=== PATIENT | female | born 1930 | race African-American/Black ===

== ENCOUNTER 2019-12-15 09:28 | Inpatient (IN) | payer OTHER ==
[2019-12-15] VITALS (11 sets, daily range): BP systolic 101–148; BP diastolic 53–99
[~2019-12-15] VITALS: Ht 152.4 cm; Wt 70.8 kg
[2019-12-15] MEDS ORDERED: CALCIUM 500 +1 EAC6 PO (09:40)
[2019-12-15] MEDS ORDERED: DULCOLAX10 MG RC (09:40)
[2019-12-15] MEDS ORDERED: MIRTAZAPINE15 MG ORAL (09:40)
[2019-12-15] MEDS ORDERED: ACETAMINOPHEN325 M1 ORAL (09:40)
[2019-12-15] MEDS ORDERED: COLACE100 MG ORAL (09:40)
[2019-12-15] MEDS ORDERED: RANITIDINE HCL150 MG ORAL (09:40)
[2019-12-15] MEDS ORDERED: MILK OF MA400 MG/51 ORAL (09:40)
[2019-12-15] MEDS ORDERED: VALPROIC A250 MG/5 M PO (09:40)
[2019-12-15] MEDS ORDERED: SENNA8.6 M2 PO (09:40)
[2019-12-15] MEDS ORDERED: ASPIRIN81 MG ORAL (09:40)
[2019-12-15 10:38] LABS: BASOPHILS % (AUTO) 0.5 % (0.0-2.0); HEMATOCRIT 53.8 % (37.0-47.0); LYMPHOCYTES % (AUTO) 14.7 % (20.0-45.0); MEAN CORPUSCULAR VOLUME 93 FL (80-99); MONOCYTES % (AUTO) 4.5 % (1.0-10.0); NEUTROPHILS % (AUTO) 80.2 % (45.0-75.0); PLATELET COUNT 320 K/UL (150-450); RED BLOOD COUNT 5.76 M/UL (4.20-5.40); RED CELL DISTRIBUTION WIDTH 12.5 % (11.6-14.8); WHITE BLOOD COUNT 14.1 K/UL (4.8-10.8)
[2019-12-15 10:39] LABS: HEMOGLOBIN 18.4 G/DL (12.0-16.0)
[2019-12-15 10:50] LABS: APPEARANCE,URINE CLEAR; BILIRUBIN, URINE NEGATIVE (NEGATIVE); GLUCOSE, URINE (UA) NEGATIVE (NEGATIVE); KETONES,URINE NEGATIVE (NEGATIVE); LEUKOCYTE ESTERASE ,URINE NEGATIVE (NEGATIVE); NITRITE,URINE NEGATIVE (NEGATIVE); PH,URINE 6 (4.5-8.0); PROTEIN,URINE 1+ (NEGATIVE); UROBILINOGEN,URINE 1 MG/DL (0.0-1.0)
[2019-12-15 10:53] LABS: INR 1.2 (0.9-1.1)
[2019-12-15 11:00] LABS: ALANINE AMINOTRANSFERASE 52 U/L (12-78); ALBUMIN 3.5 G/DL (3.4-5.0); ALBUMIN/GLOBULIN RATIO 0.6 (1.0-2.7); ALKALINE PHOSPHATASE 209 U/L (46-116); ANION GAP 19 mmol/L (5-15); ASPARTATE AMINO TRANSFERASE 57 U/L (15-37); BILIRUBIN,TOTAL 0.6 MG/DL (0.2-1.0); BLOOD UREA NITROGEN 88 mg/dL (7-18); CALCIUM 10.3 MG/DL (8.5-10.1); CARBON DIOXIDE 26 MMOL/L (21-32); CHLORIDE 119 MMOL/L (98-107); CKMB 6.3 NG/ML (0.0-3.6); CREATINE KINASE 273 U/L (26-308); CREATININE 2.6 MG/DL (0.55-1.30); POTASSIUM 3.7 MMOL/L (3.5-5.1)
[2019-12-15] MEDS ORDERED: LORazepam Inj 2mg/ml 1ml IV ONE (11:00)
[2019-12-15 11:03] LABS: SODIUM 164 MMOL/L (136-145)
[2019-12-15 11:07] LABS: COLOR,URINE YELLOW
[2019-12-15] MEDS ORDERED: Heparin 25,000u/D5W 500ml 500 ML IV SCH ×2 (11:15→21:41)
[2019-12-15] MEDS ORDERED: Heparin 5000 units/ml inj IV ONE (11:15)
--- NOTE | 2019-12-15 11:45 | Diagnostic Imaging Report ---
Indication: Altered mental status Technique: Continuous helical CT scanning of the head was performed utilizing automated exposure control without intravenous contrast material. Axial and coronal reconstructions were obtained. Comparison: 06/03/2013 CT dose: Total DLP 1018.8 mGycm; CTDI vol 53.4 mGy Findings: There is no acute intracranial hemorrhage, mass effect or cortical edema. The ventricles, cisterns and sulci are prominent consistent with atrophy. Periventricular hypoattenuation is seen, a nonspecific finding. There are atherosclerotic vascular calcifications. Visualized mastoid air cells and paranasal sinuses are unremarkable. No focal lesions of the bony calvarium or soft tissues of the scalp are seen. Impression: No evidence of acute intracranial hemorrhage, mass effect or cortical edema. MRI may be obtained for more sensitive evaluation as clinically indicated. Atrophy and nonspecific periventricular hypoattenuation suggestive of chronic ischemic microvascular changes. The CT scanner at [facility] is accredited by the [employer] and the scans are performed using protocols designed to limit radiation exposure to as low as reasonably achievable to attain images of sufficient resolution adequate for diagnostic evaluation.
--- NOTE | 2019-12-15 11:50 | Emergency Room Report ---
History of Present Illness General Chief Complaint: Abnormal Labs Source: EMS Present Illness HPI This patient is brought in from a snf facility. The patient has a history of dementia. She usually is able to make and has not typically agitated. Per report, the patient has been agitated for the past few days and altered. She is no longer speaking any simple words and is nonsensical. This particular snf facility currently has an outbreak of COVID-19. This patient has tested negative for COVID-19. She is in an isolated area of the snf facility and has not been allowed out of her room for concerns of her health. Typically she is brought outside by wheelchair. Over the past 2 days, the patient has been refusing to eat and less active. She does not want to drink water. The patient underwent basic labs at the snf [facility] which showed abnormalities. She presents the emergency department for further evaluation. The patient is completely altered and combative and unable to give any type of history. All of the history of present illness was obtained from the snf facility staff by phone. Allergies: Coded Allergies: MEMANTINE (Unverified Allergy, Unknown, 12/15/19) SERTRALINE (Unverified Allergy, Unknown, 12/15/19) COVID-19 Screening Contact w/high risk pt: Yes Recent Travel to affected area: No Experienced COVID-19 symptoms?: No Patient History Past Medical History: see triage record, old chart reviewed, GERD, dementia, psych hx Social History: Denies: smoking, alcohol use, drug use Reviewed Nursing Documentation: PMH: Agreed; PSxH: Agreed Nursing Documentation-PMH Past Medical History: No History, Except For Hx Cardiac Problems: Yes - [place], Dementia, alzheimers, GERD Hx Hypertension: Yes Review of Systems All Other Systems: limited Physical Exam Vital Signs Date Time Temp Pulse Resp B/P (MAP) Pulse Ox O2 Delivery O2 Flow Rate FiO2 12/15/19 09:30 99.0 89 20 140/99 (113) 97 Room Air Sp02 EP Interpretation: reviewed, normal General Appearance: no apparent distress, alert, GCS 15, non-toxic, other - combatative and agitated Head: normocephalic, atraumatic ENT: hearing grossly normal, no angioedema, normal voice Neck: normal inspection, full range of motion Respiratory: normal breath sounds, no respiratory distress, no retraction, no accessory muscle use Cardiovascular #1: regular rate, rhythm, no edema Gastrointestinal: normal bowel sounds, soft, non-distended, no guarding, no rebound Rectal: deferred Musculoskeletal: normal inspection, back normal, normal range of motion, non- tender Neurologic: alert, motor strength/tone normal, responsive, other - confused, agitated, combatative Psychiatric: anxious Skin: no rash, other - See RN skin exam Medical Decision Making Diagnostic Impression: Primary Impression: Encephalopathy Additional Impressions: Renal failure Dehydration NSTEMI (non-ST elevated myocardial infarction) ER Course This patient has multiple acute issues. This includes acute renal failure with encephalopathy. The labs are consistent with significant dehydration. I suspect this is from poor oral intake given the history of declining food and water. Patient's troponin is significantly elevated to 3.8. She was hydrated aggressively in the emergency department and started on a heparin drip per ACS protocol. CT of the head was unremarkable. The patient is admitted to the ICU stepdown unit. This patient is critically ill. This patient required complex medical decision- making, aggressive intervention, extensive laboratory workup and monitoring. Critical care time: 40 minutes. Laboratory Tests Test 12/15/19 09:50 12/15/19 10:30 White Blood Count 14.1 K/UL (4.8-10.8) H Red Blood Count 5.76 M/UL (4.20-5.40) H Hemoglobin 18.4 G/DL (12.0-16.0) *H Hematocrit 53.8 % (37.0-47.0) H Mean Corpuscular Volume 93 FL (80-99) Mean Corpuscular Hemoglobin 31.9 PG (27.0-31.0) H Mean Corpuscular Hemoglobin Concent 34.2 G/DL (32.0-36.0) Red Cell Distribution Width 12.5 % (11.6-14.8) Platelet Count 320 K/UL (150-450) Mean Platelet Volume 10.2 FL (6.5-10.1) H Neutrophils (%) (Auto) 80.2 % (45.0-75.0) H Lymphocytes (%) (Auto) 14.7 % (20.0-45.0) L Monocytes (%) (Auto) 4.5 % (1.0-10.0) Eosinophils (%) (Auto) 0.0 % (0.0-3.0) Basophils (%) (Auto) 0.5 % (0.0-2.0) Prothrombin Time 13.0 SEC (9.30-11.50) H Prothrombin Time INR 1.2 (0.9-1.1) H Activated Partial Thromboplast Time 31 SEC (23-33) Sodium Level 164 MMOL/L (136-145) *H Potassium Level 3.7 MMOL/L (3.5-5.1) Chloride Level 119 MMOL/L (98-107) H Carbon Dioxide Level 26 MMOL/L (21-32) Anion Gap 19 mmol/L (5-15) H Blood Urea Nitrogen 88 mg/dL (7-18) H Creatinine 2.6 MG/DL (0.55-1.30) H Estimated Glomerular Filtration Rate 21.1 mL/min (>60) Glucose Level 151 MG/DL (74-106) H Lactic Acid Level 3.20 mmol/L (0.4-2.0) H Calcium Level 10.3 MG/DL (8.5-10.1) H Total Bilirubin 0.6 MG/DL (0.2-1.0) Aspartate Amino Transferase (AST) 57 U/L (15-37) H Alanine Aminotransferase (ALT) 52 U/L (12-78) Alkaline Phosphatase 209 U/L (46-116) H Total Creatine Kinase 273 U/L (26-308) Creatine Kinase MB 6.3 NG/ML (0.0-3.6) H Creatine Kinase MB Relative Index 2.3 Troponin I 3.887 ng/mL (0.000-0.056) Total Protein 9.7 G/DL (6.4-8.2) H Albumin 3.5 G/DL (3.4-5.0) Globulin 6.2 g/dL Albumin/Globulin Ratio 0.6 (1.0-2.7) L Urine Color Yellow Urine Appearance Clear Urine pH 6 (4.5-8.0) Urine Specific [place] 1.025 (1.005-1.035) Urine Protein 1+ (NEGATIVE) H Urine Glucose (UA) Negative (NEGATIVE) Urine Ketones Negative (NEGATIVE) Urine Blood 1+ (NEGATIVE) H Urine Nitrite Negative (NEGATIVE) Urine Bilirubin Negative (NEGATIVE) Urine Urobilinogen 1 MG/DL (0.0-1.0) H Urine Leukocyte Esterase Negative (NEGATIVE) Urine RBC 2-4 /HPF (0 - 2) H Urine WBC 0-2 /HPF (0 - 2) Urine Squamous Epithelial Cells Few /LPF (NONE/OCC) Urine Bacteria Few /HPF (NONE) EKG Diagnostic Results Rate: normal Rhythm: NSR ST Segments: other - NSST findings Rhythm Strip Diag. Results EP Interpretation: yes Rate: 80's Rhythm: NSR, no PVC's, no ectopy Chest X-Ray Diagnostic Results Chest X-Ray Diagnostic Results : Chest X-Ray Ordered: Yes # of Views/Limited/Complete: 1 View Indication: Other EP Interpretation: Yes Interpretation: no consolidation, no effusion, no pneumothorax, no acute cardiopulmonary disease Impression: No acute disease Electronically Signed by: Yuki Munoz DO CT/MRI/US Diagnostic Results CT/MRI/US Diagnostic Results : Imaging Test Ordered: CT head Impression No acute findings. Specifically no intracranial bleed, mass effect or edema. See official report. Last Vital Signs Date Time Temp Pulse Resp B/P (MAP) Pulse Ox O2 Delivery O2 Flow Rate FiO2 12/15/19 09:30 99.0 89 20 140/99 (113) 97 Room Air Status: improved Disposition: ADMITTED INPATIENT Condition: Critical Referrals: DANIEL STRICKLAND (PCP) Yuki Munoz DO Dec 15, 2019 11:50
--- NOTE | 2019-12-15 12:29 | Diagnostic Imaging Report ---
Indication: Cough, altered mental status Technique: XRAY Chest 1v Comparison: 06/03/2013 Findings: Heart size within upper limits for normal. Mediastinal contours are sharp. The aorta is tortuous and calcified. There is no focal airspace consolidation, pleural effusion, pneumothorax or radiographic evidence of pulmonary edema. There are degenerative changes of the spine and shoulders. No acute osseous abnormality. Impression: No radiographic evidence of acute cardiopulmonary disease.
--- NOTE | 2019-12-15 13:32 | Consultation ---
Consult Note Consult Note I was asked to evaluate the patient at the request of Dr. Toledo for renal failure Patient seen in the emergency room #10 Records reviewed discussed with RN Emergency room note: This patient is brought in from a long term facility. The patient has a history of dementia. She usually is able to make and has not typically agitated. Per report, the patient has been agitated for the past few days and altered. She is no longer speaking any simple words and is nonsensical. This particular long term facility currently has an outbreak of COVID-19. This patient has tested negative for COVID-19. She is in an isolated area of the long term [facility] and has not been allowed out of her room for concerns of her health. Typically she is brought outside by wheelchair. Over the past 2 days, the patient has been refusing to eat and less active. She does not want to drink water. The patient underwent basic labs at the [facility] which showed abnormalities. She presents the emergency department for further evaluation. The patient is completely altered and combative and unable to give any type of history. All of the history of present illness was obtained from the long term facility staff by phone. Allergies: MEMANTINE (Unverified Allergy, Unknown, 12/15/19) SERTRALINE (Unverified Allergy, Unknown, 12/15/19) Contact w/high risk pt: Yes Recent Travel to affected area: No Experienced COVID-19 symptoms?: No Past Medical History: see triage record, old chart reviewed, GERD, dementia, psych hx Past Medical History: No History, Except For Hx Cardiac Problems: Yes - [place], Dementia, alzheimers, GERD Hx Hypertension: Yes Assessment/Plan Acute renal failure Severe dehydration Hypernatremia indicative of free water depletion Hypercalcemia likely due to dehydration Elevated hemoglobin likely secondary to hemoconcentration Elevated troponin Poor p.o. intake / failure to thrive Dementia Hypertension Exposure to COVID-19 Harris catheter N.p.o. except medication IV Protonix Nitropaste Oral aspirin Avoid nephrotoxic's Monitor renal parameters Monitor hemoglobin hematocrit Avoid mind altering medication in view of severe lethargy Per orders Robert Foreman MD Dec 15, 2019 13:32
[2019-12-15] MEDS: D5 1/2NS 1,000 ML IV SCH (14:38)
[2019-12-15] MEDS: Nitroglycerin Patch 0.4mg TDERMAL SCH (14:57)
--- NOTE | 2019-12-15 20:21 | History & Physical ---
History of Present Illness General Date patient seen: Dec 15, 2019 Reason for Hospitalization: Abnormal Labs Present Illness HPI 89 year old~female~with a history of dementia, HTN, NSTEMI anxiety,~falls transferred to ED from Snf with ROSARIO. Has apparently not been eating for several days. Normally combative and uncooperative at times per report. Noted in ED with labs showing ROSARIO, hypernatremia, polycythemia, and elevated troponin. CT head done which was normal and heparin gtt started. Was COVID negative last week but there are positive cases at her detention. She is being r/o for COVID. Heparin gtt ongoing. IVF started by renal. Allergies: Coded Allergies: MEMANTINE (Unverified Allergy, Unknown, 12/15/19) SERTRALINE (Unverified Allergy, Unknown, 12/15/19) COVID-19 Screening Contact w/high risk pt: Yes Recent Travel to affected area: No Experienced COVID-19 symptoms?: No Medication History Scheduled Aspirin* (Aspirin*), 81 MG ORAL DAILY, (Reported) Docusate Sodium* (Colace*), 100 MG ORAL DAILY, (Reported) Magnesium Hydroxide* (Milk Of Magnesia*), 30 ML ORAL DAILY, (Reported) Mirtazapine* (Remeron*), 15 MG ORAL BEDTIME, (Reported) Ranitidine Hcl* (Zantac*), 150 MG ORAL DAILY, (Reported) Scheduled PRN Acetaminophen* (Acetaminophen 325MG Tablet*), 325 MG ORAL Q4H PRN for For Pain, (Reported) Miscellaneous Medications Bisacodyl (Dulcolax), 10 MG RC, (Reported) Calcium Carbonate/Vitamin D3 (Calcium 500 + Vit D 200 Caplet), 1 EACH PO, ( Reported) Sennosides (Senna), 8.6 MG PO, (Reported) Valproate Sodium (Valproic Acid), 250 MG PO, (Reported) Patient History Limited by: medical condition History Provided By: Medical Record Healthcare decision maker Resuscitation status Advanced Directive on File Review of Systems Review of Symptoms Unable to obtain due to patient factors Physical Exam Physical Exam General appearance: alert, no distress, appears stated age Head: Normocephalic, without obvious abnormality, atraumatic Eyes: conjunctivae/corneas clear. PERRL, EOM's intact. Fundi benign Throat: Lips, mucosa, and tongue normal. Neck: supple, symmetrical, trachea midline, no adenopathy, thyroid: not enlarged, symmetric, no tenderness/mass/nodules, no carotid bruit and no JVD Lungs: clear to auscultation bilaterally Heart: regular rate and rhythm, S1, S2 normal, no murmur, click, rub or gallop Abdomen: soft, non-tender. Bowel sounds normal. No masses, no organomegaly Extremities: extremities normal, atraumatic, no cyanosis or edema Pulses: 2+ and symmetric Skin: Skin color, texture, turgor normal. No rashes or lesions Neurologic: Grossly normal Last 24 Hour Vital Signs Date Time Temp Pulse Resp B/P (MAP) Pulse Ox O2 Delivery O2 Flow Rate FiO2 12/15/19 19:22 79 24 127/97 97 Room Air 12/15/19 18:30 86 17 148/74 97 Room Air 12/15/19 16:26 98.8 78 19 139/94 98 Room Air 12/15/19 14:57 119/76 12/15/19 14:26 18 138/81 100 Room Air 12/15/19 13:30 98.6 81 18 134/86 97 Room Air 12/15/19 11:30 17 138/74 99 Room Air 12/15/19 09:30 99.0 74 20 140/99 97 Room Air 12/15/19 09:30 99.0 89 20 140/99 (113) 97 Room Air Laboratory Tests Test 12/15/19 09:50 12/15/19 10:30 12/15/19 12:15 White Blood Count 14.1 K/UL (4.8-10.8) H Red Blood Count 5.76 M/UL (4.20-5.40) H Hemoglobin 18.4 G/DL (12.0-16.0) *H Hematocrit 53.8 % (37.0-47.0) H Mean Corpuscular Volume 93 FL (80-99) Mean Corpuscular Hemoglobin 31.9 PG (27.0-31.0) H Mean Corpuscular Hemoglobin Concent 34.2 G/DL (32.0-36.0) Red Cell Distribution Width 12.5 % (11.6-14.8) Platelet Count 320 K/UL (150-450) Mean Platelet Volume 10.2 FL (6.5-10.1) H Neutrophils (%) (Auto) 80.2 % (45.0-75.0) H Lymphocytes (%) (Auto) 14.7 % (20.0-45.0) L Monocytes (%) (Auto) 4.5 % (1.0-10.0) Eosinophils (%) (Auto) 0.0 % (0.0-3.0) Basophils (%) (Auto) 0.5 % (0.0-2.0) Prothrombin Time 13.0 SEC (9.30-11.50) H Prothromb Time International Ratio 1.2 (0.9-1.1) H Activated Partial Thromboplast Time 31 SEC (23-33) Sodium Level 164 MMOL/L (136-145) *H Potassium Level 3.7 MMOL/L (3.5-5.1) Chloride Level 119 MMOL/L (98-107) H Carbon Dioxide Level 26 MMOL/L (21-32) Anion Gap 19 mmol/L (5-15) H Blood Urea Nitrogen 88 mg/dL (7-18) H Creatinine 2.6 MG/DL (0.55-1.30) H Estimat Glomerular Filtration Rate 21.1 mL/min (>60) Glucose Level 151 MG/DL (74-106) H Lactic Acid Level 3.20 mmol/L (0.4-2.0) H 2.40 mmol/L (0.66-2.22) H Calcium Level 10.3 MG/DL (8.5-10.1) H Total Bilirubin 0.6 MG/DL (0.2-1.0) Aspartate Amino Transf (AST/SGOT) 57 U/L (15-37) H Alanine Aminotransferase (ALT/SGPT) 52 U/L (12-78) Alkaline Phosphatase 209 U/L (46-116) H Total Creatine Kinase 273 U/L (26-308) Creatine Kinase MB 6.3 NG/ML (0.0-3.6) H Creatine Kinase MB Relative Index 2.3 Troponin I 3.887 ng/mL (0.000-0.056) Total Protein 9.7 G/DL (6.4-8.2) H Albumin 3.5 G/DL (3.4-5.0) Globulin 6.2 g/dL Albumin/Globulin Ratio 0.6 (1.0-2.7) L Urine Color Yellow Urine Appearance Clear Urine pH 6 (4.5-8.0) Urine Specific [place] 1.025 (1.005-1.035) Urine Protein 1+ (NEGATIVE) H Urine Glucose (UA) Negative (NEGATIVE) Urine Ketones Negative (NEGATIVE) Urine Blood 1+ (NEGATIVE) H Urine Nitrite Negative (NEGATIVE) Urine Bilirubin Negative (NEGATIVE) Urine Urobilinogen 1 MG/DL (0.0-1.0) H Urine Leukocyte Esterase Negative (NEGATIVE) Urine RBC 2-4 /HPF (0 - 2) H Urine WBC 0-2 /HPF (0 - 2) Urine Squamous Epithelial Cells Few /LPF (NONE/OCC) Urine Bacteria Few /HPF (NONE) Height (Feet): 5 Weight (Pounds): 160 Medications Current Medications Medications (Trade) Dose Ordered Sig/Ovi Route PRN Reason Start Time Stop Time Status Last Admin Dose Admin Dextrose/Sodium Chloride 1,000 ml @ 75 mls/hr [id number] IV 12/15/19 13:30 01/14/20 13:29 12/15/19 14:38 Heparin Sodium/ Dextrose 500 ml @ 17.418 mls/ hr ADJUST PER PROTOCOL IV 12/15/19 11:15 01/14/20 11:14 12/15/19 12:09 Nitroglycerin (Ntg) 1 patch Q24H TDERMAL 12/15/19 14:00 01/14/20 13:59 12/15/19 14:57 Pantoprazole (Protonix) 40 mg Q12HR IVP 12/15/19 21:00 01/14/20 20:59 Assessment/Plan Assessment/Plan: Problem List: Acute renal failure Severe dehydration Hypernatremia indicative of free water depletion Hypercalcemia likely due to dehydration Elevated hemoglobin likely secondary to hemoconcentration Elevated troponin Poor p.o. intake / failure to thrive Dementia Hypertension Exposure to COVID-19 Generalized anxiety disorder Plan: * IVF per renal * Monitor electrolytes * heparin gtt, trend troponin, cardiology consult * COVID r/o given [facility] patient with cases at [facility] * Monitor hemoglobin * NPO, swallow eval * Cont depakote 500 mg bid from SNF once depakote level is back * DVT ppx: heparin gtt for now * Full Code per prior documented ECP notes MIPS Hospital declaration INPATIENT level of care is warranted for this patient because patient is a 89 year old with who presents with suspicion of . I have a high level of concern because . Patient is at high risk for . Plan of care/treatment include . Patient care is expected to be greater than 2 midnights. OBSERVATION level of care is warranted for this patient. Patient is a 89 year old with who presents with . Patient will be admitted for 1 midnight, but if additional night(s) is/are necessary, patient will be converted to inpatient status for the entire hospitalization Disposition: Once the patient is stable to leave the hospital, I anticipate the patient will likely be discharged to the following environment: Estimated discharge date: I spent 70 minutes on this patient's case, and minutes was dedicated to counseling and/or care coordination. MIPS ([employer]-based Incentive Payment System) Applicable CPT: 08705, 83349 CHECK ALL THAT ARE MET: Measure #5 (CHF): All ages. Prescribe DUKE/ARB upon discharge for patients with left ventricular systolic dysfunction. If not, the reason is clearly documented in the medical chart. Measure #8 (CHF): All ages. Prescribe a beta kelton upon discharge for patients with left ventricular systolic dysfunction. If not, the reason is clearly documented in the medical chart. Measure #47 Advance care plan or surrogate decision maker documented in the medical record. Measure #130 The provider has documented, updated, or reviewed the patients current medication list and has documented it in the patients note. Measure #374 (All): Send report to referring provider. Measure #407(Sepsis due to MSSA bacteremia): Age 18+ Patient treated with a beta-lactam antibiotic (Nafcillin, Oxacillin or Cefazolin) as definitive therapy. MEDICAL COMPLEXITY High complexity medical decision making (need 2/3 categories) Problem - need 4 points Acute/new problem with new plan for workup (4 points, 1 max) Acute/new problem without additional workup (3 points, 1 max) Unstable chronic problem actively being managed (2 point each, 2 max) Stable chronic problem actively being managed (1 point each, 2 max) Self-limited/transient process (constipation, muscle ache, etc) (1 point each , 2 max) Data - need 4 points Reviewed labs/imaging studies (1 points, 2 max) Independent review of imaging (EKG, xrays, etc) (2 points, 2 max) Discussed case with consult/other MD/RN (2 points, 2 max) High Risk - qualify if have one of the following: Severe exacerbation of acute problem, acute mental status change, IV narcotics , monitoring drug levels (vancomycin, INR, tacrolimus etc) Rob Robison MD Dec 15, 2019 20:21
[2019-12-15] MEDS: LORazepam Inj 2mg/ml 1ml IV PRN (22:23)
[2019-12-15] MEDS: Pantoprazole Inj IVP SCH (22:23)
--- NOTE | 2019-12-15 23:16 | Cardiology Progress Note ---
Assessment/Plan Assessment/Plan [id number] full noted dicated i suspect demand ischemia in the setting of arf no st t wave abn has been starte don heparin will consider dc in the next 24 hour will repat trop adn ekg echo will be perfomered once covid status is confirmed not a candidate for aggressive cardiac care Objective Last 24 Hour Vital Signs Date Time Temp Pulse Resp B/P (MAP) Pulse Ox O2 Delivery O2 Flow Rate FiO2 12/15/19 20:30 98.8 79 24 127/97 97 Room Air 12/15/19 19:22 79 24 127/97 97 Room Air 12/15/19 18:30 86 17 148/74 97 Room Air 12/15/19 16:26 98.8 78 19 139/94 98 Room Air 12/15/19 14:57 119/76 12/15/19 14:26 18 138/81 100 Room Air 12/15/19 13:30 98.6 81 18 134/86 97 Room Air 12/15/19 11:30 17 138/74 99 Room Air 12/15/19 09:30 99.0 74 20 140/99 97 Room Air 12/15/19 09:30 99.0 89 20 140/99 (113) 97 Room Air Laboratory Tests Test 12/15/19 09:50 12/15/19 10:30 12/15/19 12:15 White Blood Count 14.1 K/UL (4.8-10.8) H Red Blood Count 5.76 M/UL (4.20-5.40) H Hemoglobin 18.4 G/DL (12.0-16.0) *H Hematocrit 53.8 % (37.0-47.0) H Mean Corpuscular Volume 93 FL (80-99) Mean Corpuscular Hemoglobin 31.9 PG (27.0-31.0) H Mean Corpuscular Hemoglobin Concent 34.2 G/DL (32.0-36.0) Red Cell Distribution Width 12.5 % (11.6-14.8) Platelet Count 320 K/UL (150-450) Mean Platelet Volume 10.2 FL (6.5-10.1) H Neutrophils (%) (Auto) 80.2 % (45.0-75.0) H Lymphocytes (%) (Auto) 14.7 % (20.0-45.0) L Monocytes (%) (Auto) 4.5 % (1.0-10.0) Eosinophils (%) (Auto) 0.0 % (0.0-3.0) Basophils (%) (Auto) 0.5 % (0.0-2.0) Prothrombin Time 13.0 SEC (9.30-11.50) H Prothromb Time International Ratio 1.2 (0.9-1.1) H Activated Partial Thromboplast Time 31 SEC (23-33) Sodium Level 164 MMOL/L (136-145) *H Potassium Level 3.7 MMOL/L (3.5-5.1) Chloride Level 119 MMOL/L (98-107) H Carbon Dioxide Level 26 MMOL/L (21-32) Anion Gap 19 mmol/L (5-15) H Blood Urea Nitrogen 88 mg/dL (7-18) H Creatinine 2.6 MG/DL (0.55-1.30) H Estimat Glomerular Filtration Rate 21.1 mL/min (>60) Glucose Level 151 MG/DL (74-106) H Lactic Acid Level 3.20 mmol/L (0.4-2.0) H 2.40 mmol/L (0.66-2.22) H Calcium Level 10.3 MG/DL (8.5-10.1) H Total Bilirubin 0.6 MG/DL (0.2-1.0) Aspartate Amino Transf (AST/SGOT) 57 U/L (15-37) H Alanine Aminotransferase (ALT/SGPT) 52 U/L (12-78) Alkaline Phosphatase 209 U/L (46-116) H Total Creatine Kinase 273 U/L (26-308) Creatine Kinase MB 6.3 NG/ML (0.0-3.6) H Creatine Kinase MB Relative Index 2.3 Troponin I 3.887 ng/mL (0.000-0.056) Total Protein 9.7 G/DL (6.4-8.2) H Albumin 3.5 G/DL (3.4-5.0) Globulin 6.2 g/dL Albumin/Globulin Ratio 0.6 (1.0-2.7) L Urine Color Yellow Urine Appearance Clear Urine pH 6 (4.5-8.0) Urine Specific [place] 1.025 (1.005-1.035) Urine Protein 1+ (NEGATIVE) H Urine Glucose (UA) Negative (NEGATIVE) Urine Ketones Negative (NEGATIVE) Urine Blood 1+ (NEGATIVE) H Urine Nitrite Negative (NEGATIVE) Urine Bilirubin Negative (NEGATIVE) Urine Urobilinogen 1 MG/DL (0.0-1.0) H Urine Leukocyte Esterase Negative (NEGATIVE) Urine RBC 2-4 /HPF (0 - 2) H Urine WBC 0-2 /HPF (0 - 2) Urine Squamous Epithelial Cells Few /LPF (NONE/OCC) Urine Bacteria Few /HPF (NONE) Kendell Rosen MD Dec 15, 2019 23:16
[2019-12-16] VITALS (24 sets, daily range): BP systolic 108–147; BP diastolic 55–110
[2019-12-16] MEDS ORDERED: Heparin 25,000u/D5W 500ml 500 ML IV SCH (02:00)
[2019-12-16] MEDS: LORazepam Inj 2mg/ml 1ml IV PRN ×2 (02:09→08:16)
[2019-12-16] MEDS: D5 1/2NS 1,000 ML IV SCH (02:10)
--- NOTE | 2019-12-16 03:29 | Consultation ---
DATE OF CONSULTATION: 12/15/2019 CARDIOLOGY CONSULTATION CONSULTING PHYSICIAN: Kendell Rosen M.D. REFERRING PHYSICIAN: Boby Toledo M.D. REASON FOR REFERRAL: Abnormal cardiac enzymes. HISTORY OF PRESENT ILLNESS: This is an 89-year-old female with history of multiple medical problems that apparently is a resident of a facility and according to the records was noted recently to have been spitting food out and not eating or drinking much and being combative. Creatinine went up to approximately 2.1 with a BUN of 80 and with sodium level of 157. The patient reportedly had a fall as I understand was transferred to the emergency room at [facility]. On 12/08/2019, the patient had a COVID negative test; however, the patient's facility apparently had several COVID positive patients. The patient is now on COVID isolation at the time of evaluation in the emergency room. Therefore, information from the patient evaluation is limited. CT was performed apparently normal. The patient was started on anticoagulation with heparin for the abnormal cardiac enzymes. PAST MEDICAL HISTORY: According to the [facility] records, most recently has a history of constipation, depression, some type of heart disease, hypertension, migraines, phobic disorder, and ulnar fracture. She is status post cholecystectomy, hysterectomy. Also positive for fall back in August 2019, presyncope from bradycardia, history of chronic weakness, history of possible benign positional vertigo, [id number] myocardial infarction type 2, bradycardia secondary to beta-blockers that resolved after discontinuation of the medication, urinary tract infection, hypertension, dementia, anxiety disorder, gastroesophageal reflux disease, osteopenia, degenerative joint disease, vitamin D deficiency. ALLERGIES: To Namenda and Zoloft. SOCIAL HISTORY: Resident of convalescent facility. REVIEW OF SYSTEMS: Really unable to obtain. PHYSICAL EXAMINATION: It is obtained from review of other physicians who saw patient today. GENERAL: Apparently, she was alert and was not appeared to be any distress. NECK: Supple. Trachea was felt to be midline. LUNGS: [place] to be clear to auscultation by . HEART: Sounds apparently felt to be regular. ABDOMEN: Otherwise soft and nontender. EXTREMITIES: She did not have any significant edema. VITAL SIGNS: Today, blood pressures have ranged anywhere between 119/76 to 148/74 with her temperature being documented here orally as basically between 98.8 and 99 degrees. Her heart rate has been as low as 74 and as high as 89 beats per minute. LABORATORY AND DIAGNOSTIC DATA: Her electrocardiogram shows sinus rhythm. There was no ST or T-wave abnormalities. White count of 14.1 with hemoglobin 18.4, and platelet count of 320. Sodium is 164, potassium 3.7, chloride 119, bicarb 26, BUN of 88, creatinine 2.6, and a glucose of 151. Lactic acid of 3.273, 2.4. Calcium of 10.3. AST and ALT are unremarkable. Alkaline phosphatase is 209. Total CK of 273. Troponin of 3.88. Her total protein is 9.7 with a gamma globulin of 6.2. Further imaging that was performed today, CT scan of the head has no evidence of acute intracranial hemorrhage, mass effect or cortical edema, atrophy, nonspecific periventricular hypoattenuation suggestive of chronic ischemic microvascular changes. A chest x-ray performed shows no acute evidence of cardiopulmonary disease process. ASSESSMENT AND PLAN: 1. Efz-SX-[id number] myocardial infarction, possibly related to demand. 2. Acute renal failure in the setting of volume depletion. 3. Hypernatremia secondary to volume depletion. 4. 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 5. Dementia. 6. Lactic acidosis. 7. History of bradycardia secondary to medications. Dr. Toledo, this patient was seen in cardiac consultation. Patient does not endorse any signs or symptoms of coronary syndrome, although appears that she is unable to provide that information because this patient had sensation at this time. Her prior to admission medications were reviewed and she will be continued on aspirin for the time being and she is receiving hydration. Her EKG will be repeated. Cardiac enzymes will be repeated. Echocardiogram will be held off until results of COVID-19 tests are available. She certainly is not a candidate for any kind of invasive cardiac evaluation and therapy. We would continue conservative therapy and further recommendation depending on the results of the above findings. I am not sure she will require to be continued on heparin. We will decide that after the first 24 hours since she has already been started on that therapy at this time. She is not febrile. Her altered mentation that resulted in her decreased p.o. intake will be evaluated based on her recommendations of and Dr. Toledo who have seen the patient originally. I will follow the patient along with you. Kendell Rosen M.D. DR: RACHEL JOB#: [id number] CC:
[2019-12-16] MEDS: Pantoprazole Inj IVP SCH ×2 (08:15→20:41)
--- NOTE | 2019-12-16 08:22 | Nephrology Progress Note ---
Assessment/Plan Problem List: (1) ROSARIO (acute kidney injury) (2) Dehydration (3) Electrolyte imbalance (4) NSTEMI (non-ST elevated myocardial infarction) Assessment Acute renal failure Severe dehydration Hypernatremia indicative of free water depletion Hypercalcemia likely due to dehydration Elevated hemoglobin likely secondary to hemoconcentration Elevated troponin Poor p.o. intake / failure to thrive Dementia Hypertension Exposure to COVID-19 Plan Covid19 test pending Today's lab results reviewed IV fluid adjusted Aspirin and Plavix 2D echocardiogram Patient in ICU now discussed with RN Harris catheter N.p.o. except medication IV Protonix Nitropaste Avoid nephrotoxic's Monitor renal parameters Monitor hemoglobin hematocrit Avoid mind altering medication in view of severe lethargy Per orders Subjective ROS Limited/Unobtainable: No Constitutional: Reports: malaise, weakness Objective Objective Last 24 Hour Vital Signs Date Time Temp Pulse Resp B/P (MAP) Pulse Ox O2 Delivery O2 Flow Rate FiO2 12/16/19 07:00 75 17 120/94 (103) 100 12/16/19 06:30 77 20 12/16/19 06:00 76 18 138/83 (101) 100 12/16/19 05:00 75 19 127/76 (93) 100 12/16/19 04:00 77 12/16/19 04:00 Nasal Cannula 2.0 12/16/19 04:00 97.6 77 18 137/73 (94) 100 12/16/19 04:00 2.0 12/16/19 03:00 78 19 123/84 (97) 100 12/16/19 02:00 79 17 129/65 (86) 100 12/16/19 01:00 83 22 119/103 (108) 95 12/16/19 00:20 97.6 12/16/19 00:00 81 12/16/19 00:00 2.0 12/16/19 00:00 87 23 125/110 (115) 95 12/16/19 00:00 Nasal Cannula 2.0 12/15/19 23:00 80 17 105/74 (84) 96 12/15/19 22:00 84 21 127/74 (91) 93 12/15/19 21:00 84 19 101/53 (69) 92 12/15/19 21:00 Room Air 12/15/19 20:43 97.9 85 17 135/70 (91) 85 12/15/19 20:40 87 33 12/15/19 20:30 98.8 79 24 127/97 97 Room Air 12/15/19 19:22 79 24 127/97 97 Room Air 12/15/19 18:30 86 17 148/74 97 Room Air 12/15/19 16:26 98.8 78 19 139/94 98 Room Air 12/15/19 14:57 119/76 12/15/19 14:26 18 138/81 100 Room Air 12/15/19 13:30 98.6 81 18 134/86 97 Room Air 12/15/19 11:30 17 138/74 99 Room Air 12/15/19 09:30 99.0 74 20 140/99 97 Room Air 12/15/19 09:30 99.0 89 20 140/99 (113) 97 Room Air Intake and Output 12/15/19 12/16/19 19:00 07:00 Intake Total 75 ml 829.672 ml Output Total 910 ml Balance 75 ml -80.328 ml Intake IV Total 75 ml 829.672 ml Output Urine Total 910 ml Laboratory Tests 12/15/19 09:50: White Blood Count 14.1H, Red Blood Count 5.76H, Hemoglobin 18.4*H, Hematocrit 53.8H, Mean Corpuscular Volume 93, Mean Corpuscular Hemoglobin 31.9H, Mean Corpuscular Hemoglobin Concent 34.2, Red Cell Distribution Width 12.5, Platelet Count 320, Mean Platelet Volume 10.2H, Neutrophils (%) (Auto) 80.2H, Lymphocytes (%) (Auto) 14.7L, Monocytes (%) (Auto) 4.5, Eosinophils (%) (Auto) 0.0, Basophils (%) (Auto) 0.5, Prothrombin Time 13.0H, Prothromb Time International Ratio 1.2H, Activated Partial Thromboplast Time 31, Sodium Level 164*H, Potassium Level 3.7, Chloride Level 119H, Carbon Dioxide Level 26, Anion Gap 19H, Blood Urea Nitrogen 88H, Creatinine 2.6H, Estimat Glomerular Filtration Rate 21.1, Glucose Level 151H, Lactic Acid Level 3.20H, Calcium Level 10.3H, Total Bilirubin 0.6, Aspartate Amino Transf (AST/SGOT) 57H, Alanine Aminotransferase (ALT/SGPT) 52, Alkaline Phosphatase 209H, Total Creatine Kinase 273, Creatine Kinase MB 6.3H, Creatine Kinase MB Relative Index 2.3, Troponin I 3.887H, Total Protein 9.7H, Albumin 3.5, Globulin 6.2, Albumin/ Globulin Ratio 0.6L 12/15/19 10:30: Urine Color Yellow, Urine Appearance Clear, Urine pH 6, Urine Specific [place] 1.025, Urine Protein 1+H, Urine Glucose (UA) Negative, Urine Ketones Negative, Urine Blood 1+H, Urine Nitrite Negative, Urine Bilirubin Negative, Urine Urobilinogen 1H, Urine Leukocyte Esterase Negative, Urine RBC 2-4H, Urine WBC 0- 2, Urine Squamous Epithelial Cells Few, Urine Bacteria Few 12/15/19 12:15: Lactic Acid Level 2.40H 12/16/19 00:05: Activated Partial Thromboplast Time > 150*H Height (Feet): 5 Height (Inches): 0.00 Weight (Pounds): 117 General Appearance: no apparent distress Cardiovascular: normal rate Respiratory/Chest: decreased breath sounds Abdomen: soft Robert Foreman MD Dec 16, 2019 08:22
[2019-12-16 10:15] LABS: ALANINE AMINOTRANSFERASE 35 U/L (12-78); ALBUMIN 2.6 G/DL (3.4-5.0); ALBUMIN/GLOBULIN RATIO 0.5 (1.0-2.7); ALKALINE PHOSPHATASE 150 U/L (46-116); ANION GAP 14 mmol/L (5-15); ASPARTATE AMINO TRANSFERASE 50 U/L (15-37); BILIRUBIN,TOTAL 0.4 MG/DL (0.2-1.0); BLOOD UREA NITROGEN 57 mg/dL (7-18); CALCIUM 8.8 MG/DL (8.5-10.1); CARBON DIOXIDE 24 MMOL/L (21-32); CHLORIDE 123 MMOL/L (98-107); CREATININE 1.4 MG/DL (0.55-1.30); FERRITIN 668 NG/ML (8-388); GAMMA GLUTAMYL TRANSPEPTIDASE 49 U/L (5-85); PHOSPHORUS 2.8 MG/DL (2.5-4.9); POTASSIUM 2.9 MMOL/L (3.5-5.1)
[2019-12-16 10:17] LABS: SODIUM 161 MMOL/L (136-145)
[2019-12-16 10:18] LABS: BASOPHILS % (AUTO) 0.9 % (0.0-2.0); EOSINOPHILS % (AUTO) 0.2 % (0.0-3.0); HEMATOCRIT 39.9 % (37.0-47.0); HEMOGLOBIN 14.1 G/DL (12.0-16.0); LYMPHOCYTES % (AUTO) 15.3 % (20.0-45.0); MEAN CORPUSCULAR VOLUME 92 FL (80-99); MONOCYTES % (AUTO) 7.1 % (1.0-10.0); NEUTROPHILS % (AUTO) 76.6 % (45.0-75.0); PLATELET COUNT 223 K/UL (150-450); RED BLOOD COUNT 4.31 M/UL (4.20-5.40); RED CELL DISTRIBUTION WIDTH 12.3 % (11.6-14.8); WHITE BLOOD COUNT 10.9 K/UL (4.8-10.8)
[2019-12-16] MEDS ORDERED: Heparin 5000 units/ml inj IV SCH (10:29)
[2019-12-16] MEDS: Heparin 25,000u/D5W 500ml 500 ML IV SCH ×2 (10:43→20:43)
[2019-12-16 11:04] LABS: % IRON SATURATION 45 % (15-50); IRON 83 ug/dL (50-175); TOTAL IRON BINDING CAPACITY 186 ug/dL (250-450)
[2019-12-16 13:19] LABS: CHOLESTEROL 145 MG/DL (< 200); HDL CHOLESTEROL 43 MG/DL (40-60); TRIGLYCERIDES 153 MG/DL (30-150)
[2019-12-16] MEDS: Nitroglycerin Patch 0.4mg TDERMAL SCH (14:54)
--- NOTE | 2019-12-16 17:33 | Cardiology Progress Note ---
Assessment/Plan Assessment/Plan 1. [id number] myocardial infarction, possibly related to demand. 2. Acute renal failure in the setting of volume depletion. 3. Hypernatremia secondary to volume depletion. 4. 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 5. Dementia. 6. Lactic acidosis. 7. History of bradycardia secondary to medications. pt not examined due to covid unknown status trop appears flat ekg no st t wave abn lactic acid level are still elevated not needed pressor nad min improved covid status still pending not seem be coughing per rn is n heparin will dc tomorow if trop trene down reepat ekg echo onse covid neg Subjective ROS Limited/Unobtainable: Yes Subjective per rn no cough no fever in fact hypothermic no vomit confused no diarrhea Objective Last 24 Hour Vital Signs Date Time Temp Pulse Resp B/P (MAP) Pulse Ox O2 Delivery O2 Flow Rate FiO2 12/16/19 17:00 77 17 144/77 (99) 100 12/16/19 16:00 98.6 73 17 147/65 (92) 100 12/16/19 16:00 Nasal Cannula 2.0 12/16/19 16:00 2.0 12/16/19 15:20 71 12/16/19 15:00 74 15 126/78 (94) 100 12/16/19 14:54 131/67 12/16/19 14:00 73 17 131/67 (88) 12/16/19 13:00 94.0 71 21 143/85 (104) 100 12/16/19 12:00 69 14 142/80 (100) 100 12/16/19 12:00 69 12/16/19 12:00 2.0 12/16/19 12:00 94.0 69 14 142/80 (100) 100 12/16/19 12:00 Nasal Cannula 2.0 12/16/19 11:00 71 14 121/91 (101) 100 12/16/19 10:00 62 13 126/64 (84) 100 12/16/19 09:00 63 14 108/55 (72) 100 12/16/19 08:00 Nasal Cannula 2.0 12/16/19 08:00 97.6 74 18 128/87 (101) 100 12/16/19 08:00 2.0 12/16/19 07:40 71 12/16/19 07:00 75 17 120/94 (103) 100 12/16/19 06:30 77 20 12/16/19 06:00 76 18 138/83 (101) 100 12/16/19 05:00 75 19 127/76 (93) 100 12/16/19 04:00 77 12/16/19 04:00 Nasal Cannula 2.0 12/16/19 04:00 97.6 77 18 137/73 (94) 100 12/16/19 04:00 2.0 12/16/19 03:00 78 19 123/84 (97) 100 12/16/19 02:00 79 17 129/65 (86) 100 12/16/19 01:00 83 22 119/103 (108) 95 12/16/19 00:20 97.6 12/16/19 00:00 81 12/16/19 00:00 2.0 12/16/19 00:00 87 23 125/110 (115) 95 12/16/19 00:00 Nasal Cannula 2.0 12/15/19 23:00 80 17 105/74 (84) 96 12/15/19 22:00 84 21 127/74 (91) 93 12/15/19 21:00 84 19 101/53 (69) 92 12/15/19 21:00 Room Air 12/15/19 20:43 97.9 85 17 135/70 (91) 85 12/15/19 20:40 87 33 12/15/19 20:30 98.8 79 24 127/97 97 Room Air 12/15/19 19:22 79 24 127/97 97 Room Air 12/15/19 18:30 86 17 148/74 97 Room Air General Appearance: WD/WN, no apparent distress, patient on isolation, isolation precautions, other - per jason gregory and edwin forde communicate verbally Intake and Output 12/15/19 12/16/19 19:00 07:00 Intake Total 75 ml 916.284 ml Output Total 910 ml Balance 75 ml 6.284 ml Intake IV Total 75 ml 916.284 ml Output Urine Total 910 ml Laboratory Tests Test 12/16/19 00:05 12/16/19 09:10 12/16/19 16:45 Activated Partial Thromboplast Time > 150 SEC (23-33) *H 51 SEC (23-33) H 84 SEC (23-33) H White Blood Count 10.9 K/UL (4.8-10.8) H Red Blood Count 4.31 M/UL (4.20-5.40) Hemoglobin 14.1 G/DL (12.0-16.0) Hematocrit 39.9 % (37.0-47.0) Mean Corpuscular Volume 92 FL (80-99) Mean Corpuscular Hemoglobin 32.7 PG (27.0-31.0) H Mean Corpuscular Hemoglobin Concent 35.3 G/DL (32.0-36.0) Red Cell Distribution Width 12.3 % (11.6-14.8) Platelet Count 223 K/UL (150-450) Mean Platelet Volume 10.2 FL (6.5-10.1) H Neutrophils (%) (Auto) 76.6 % (45.0-75.0) H Lymphocytes (%) (Auto) 15.3 % (20.0-45.0) L Monocytes (%) (Auto) 7.1 % (1.0-10.0) Eosinophils (%) (Auto) 0.2 % (0.0-3.0) Basophils (%) (Auto) 0.9 % (0.0-2.0) D-Dimer 0.84 mg/L FEU (0.00-0.49) H Sodium Level 161 MMOL/L (136-145) *H Potassium Level 2.9 MMOL/L (3.5-5.1) L Chloride Level 123 MMOL/L (98-107) H Carbon Dioxide Level 24 MMOL/L (21-32) Anion Gap 14 mmol/L (5-15) Blood Urea Nitrogen 57 mg/dL (7-18) H Creatinine 1.4 MG/DL (0.55-1.30) H Estimat Glomerular Filtration Rate 43.0 mL/min (>60) Glucose Level 122 MG/DL (74-106) H Lactic Acid Level 3.70 mmol/L (0.4-2.0) H Pending Uric Acid 11.8 MG/DL (2.6-7.2) H Calcium Level 8.8 MG/DL (8.5-10.1) Phosphorus Level 2.8 MG/DL (2.5-4.9) Magnesium Level 2.4 MG/DL (1.8-2.4) Iron Level 83 ug/dL (50-175) Total Iron Binding Capacity 186 ug/dL (250-450) L Percent Iron Saturation 45 % (15-50) Unsaturated Iron Binding 103 ug/dL (112-346) L Ferritin 668 NG/ML (8-388) H Total Bilirubin 0.4 MG/DL (0.2-1.0) Gamma Glutamyl Transpeptidase 49 U/L (5-85) Aspartate Amino Transf (AST/SGOT) 50 U/L (15-37) H Alanine Aminotransferase (ALT/SGPT) 35 U/L (12-78) Alkaline Phosphatase 150 U/L (46-116) H Troponin I 3.279 ng/mL (0.000-0.056) C-Reactive Protein, Quantitative 5.4 mg/dL (0.00-0.90) H Pro-B-Type Natriuretic Peptide 658 pg/mL (0-125) H Total Protein 7.4 G/DL (6.4-8.2) Albumin 2.6 G/DL (3.4-5.0) L Globulin 4.8 g/dL Albumin/Globulin Ratio 0.5 (1.0-2.7) L Triglycerides Level 153 MG/DL (30-150) H Cholesterol Level 145 MG/DL (< 200) LDL Cholesterol 75 mg/dL (<100) HDL Cholesterol 43 MG/DL (40-60) Cholesterol/HDL Ratio 3.4 (3.3-4.4) Vitamin B12 Level > 2000 PG/ML (193-986) H Folate 13.1 NG/ML (8.6-58.9) Thyroid Stimulating Hormone (TSH) 4.777 uiU/mL (0.358-3.740) Valproic Acid (Depakene) Level 8 MCG/ML (50-100) L Microbiology Date/Time Source Procedure Growth Status 12/15/19 00:00 Rectum VRE Culture - Preliminary Resulted 12/15/19 00:00 Rectum Pending Resulted Kendell Rosen MD Dec 16, 2019 17:33
--- NOTE | 2019-12-16 20:59 | Pulmonology Progress Note ---
Assessment/Plan Assessment/Plan Problem List: Acute renal failure Severe dehydration Hypernatremia indicative of free water depletion Hypercalcemia likely due to dehydration Elevated hemoglobin likely secondary to hemoconcentration Elevated troponin Poor p.o. intake / failure to thrive Dementia Hypertension Exposure to COVID-19 Generalized anxiety disorder Plan: * IVF per renal * Monitor electrolytes * heparin gtt, trend troponin, cardiology consult appreciated * COVID r/o given [facility] patient with cases at SNF * Monitor hemoglobin * NPO, swallow eval * Cont depakote 500 mg bid from SNF once depakote level is back * DVT ppx: heparin gtt for now * Full Code per prior documented ECP notes Subjective ROS Limited/Unobtainable: Yes Interval Events: Cr improved, remains hypernatremic. Trop flat. COVID swab results pending Allergies: Coded Allergies: MEMANTINE (Unverified Allergy, Unknown, 12/15/19) SERTRALINE (Unverified Allergy, Unknown, 12/15/19) Objective Last 24 Hour Vital Signs Date Time Temp Pulse Resp B/P (MAP) Pulse Ox O2 Delivery O2 Flow Rate FiO2 12/16/19 19:00 69 13 116/57 (76) 12/16/19 18:00 72 20 144/66 (92) 12/16/19 17:00 77 17 144/77 (99) 100 12/16/19 16:00 98.6 73 17 147/65 (92) 100 12/16/19 16:00 Nasal Cannula 2.0 12/16/19 16:00 2.0 12/16/19 15:20 71 12/16/19 15:00 74 15 126/78 (94) 100 12/16/19 14:54 131/67 12/16/19 14:00 73 17 131/67 (88) 12/16/19 13:00 94.0 71 21 143/85 (104) 100 12/16/19 12:00 69 14 142/80 (100) 100 12/16/19 12:00 69 12/16/19 12:00 2.0 12/16/19 12:00 94.0 69 14 142/80 (100) 100 12/16/19 12:00 Nasal Cannula 2.0 12/16/19 11:00 71 14 121/91 (101) 100 12/16/19 10:00 62 13 126/64 (84) 100 12/16/19 09:00 63 14 108/55 (72) 100 12/16/19 08:00 Nasal Cannula 2.0 12/16/19 08:00 97.6 74 18 128/87 (101) 100 12/16/19 08:00 2.0 12/16/19 07:40 71 12/16/19 07:00 75 17 120/94 (103) 100 12/16/19 06:30 77 20 12/16/19 06:00 76 18 138/83 (101) 100 12/16/19 05:00 75 19 127/76 (93) 100 12/16/19 04:00 77 12/16/19 04:00 Nasal Cannula 2.0 12/16/19 04:00 97.6 77 18 137/73 (94) 100 12/16/19 04:00 2.0 12/16/19 03:00 78 19 123/84 (97) 100 12/16/19 02:00 79 17 129/65 (86) 100 12/16/19 01:00 83 22 119/103 (108) 95 12/16/19 00:20 97.6 12/16/19 00:00 81 12/16/19 00:00 2.0 12/16/19 00:00 87 23 125/110 (115) 95 12/16/19 00:00 Nasal Cannula 2.0 12/15/19 23:00 80 17 105/74 (84) 96 12/15/19 22:00 84 21 127/74 (91) 93 12/15/19 21:00 84 19 101/53 (69) 92 12/15/19 21:00 Room Air Intake and Output 12/15/19 12/16/19 19:00 07:00 Intake Total 75 ml 916.284 ml Output Total 910 ml Balance 75 ml 6.284 ml Intake IV Total 75 ml 916.284 ml Output Urine Total 910 ml Objective Deferred due to isolation status Microbiology Date/Time Source Procedure Growth Status 12/15/19 00:00 Rectum VRE Culture - Preliminary Resulted 12/15/19 00:00 Rectum Pending Resulted Laboratory Tests 12/16/19 00:05: Activated Partial Thromboplast Time > 150*H 12/16/19 09:10: Activated Partial Thromboplast Time 51H, White Blood Count 10.9H, Red Blood Count 4.31, Hemoglobin 14.1, Hematocrit 39.9, Mean Corpuscular Volume 92, Mean Corpuscular Hemoglobin 32.7H, Mean Corpuscular Hemoglobin Concent 35.3, Red Cell Distribution Width 12.3, Platelet Count 223, Mean Platelet Volume 10.2H, Neutrophils (%) (Auto) 76.6H, Lymphocytes (%) (Auto) 15.3L, Monocytes (%) (Auto ) 7.1, Eosinophils (%) (Auto) 0.2, Basophils (%) (Auto) 0.9, D-Dimer 0.84H, Sodium Level 161*H, Potassium Level 2.9L, Chloride Level 123H, Carbon Dioxide Level 24, Anion Gap 14, Blood Urea Nitrogen 57H, Creatinine 1.4H, Estimat Glomerular Filtration Rate 43.0, Glucose Level 122H, Lactic Acid Level 3.70H, Uric Acid 11.8H, Calcium Level 8.8, Phosphorus Level 2.8, Magnesium Level 2.4, Iron Level 83, Total Iron Binding Capacity 186L, Percent Iron Saturation 45, Unsaturated Iron Binding 103L, Ferritin 668H, Total Bilirubin 0.4, Gamma Glutamyl Transpeptidase 49, Aspartate Amino Transf (AST/SGOT) 50H, Alanine Aminotransferase (ALT/SGPT) 35, Alkaline Phosphatase 150H, Troponin I 3.279H, C- Reactive Protein, Quantitative 5.4H, Pro-B-Type Natriuretic Peptide 658H, Total Protein 7.4, Albumin 2.6L, Globulin 4.8, Albumin/Globulin Ratio 0.5L, Triglycerides Level 153H, Cholesterol Level 145, LDL Cholesterol 75, HDL Cholesterol 43, Cholesterol/HDL Ratio 3.4, Vitamin B12 Level > 2000H, Folate 13.1, Thyroid Stimulating Hormone (TSH) 4.777H, Valproic Acid (Depakene) Level 8L 12/16/19 16:45: Activated Partial Thromboplast Time 84H, Lactic Acid Level 3.30H Current Medications Medications (Trade) Dose Ordered Sig/Ovi Route PRN Reason Start Time Stop Time Status Last Admin Dose Admin Aspirin (ASA) 325 mg DAILY ORAL 12/16/19 11:30 01/30/20 11:29 Dextrose 1,000 ml @ 100 mls/hr Q10H IV 12/16/19 11:17 01/15/20 11:16 12/16/19 20:44 Heparin Sodium/ Dextrose 500 ml @ 10.64 mls/ hr ADJUST PER PROTOCOL IV 12/16/19 10:30 01/15/20 10:29 12/16/19 20:43 Lorazepam (Ativan 2mg/ml 1ml) 0.5 mg Q4H PRN IV For Anxiety 12/15/19 21:45 12/22/19 21:44 12/16/19 08:16 Nitroglycerin (Ntg) 1 patch Q24H TDERMAL 12/15/19 14:00 01/14/20 13:59 12/16/19 14:54 Pantoprazole (Protonix) 40 mg Q12HR IVP 12/15/19 21:00 01/14/20 20:59 12/16/19 20:41 Potassium Chloride (K-Dur) 20 meq TWICE A DAY ORAL 12/16/19 18:00 03/15/20 17:59 Rob Robison MD Dec 16, 2019 20:59
[2019-12-17] VITALS (24 sets, daily range): BP systolic 88–138; BP diastolic 49–99
[2019-12-17 04:54] LABS: BASOPHILS % (AUTO) 0.5 % (0.0-2.0); EOSINOPHILS % (AUTO) 0.4 % (0.0-3.0); HEMATOCRIT 35.3 % (37.0-47.0); HEMOGLOBIN 12.8 G/DL (12.0-16.0); MEAN CORPUSCULAR VOLUME 92 FL (80-99); MONOCYTES % (AUTO) 7.2 % (1.0-10.0); NEUTROPHILS % (AUTO) 76.9 % (45.0-75.0); PLATELET COUNT 209 K/UL (150-450); RED BLOOD COUNT 3.86 M/UL (4.20-5.40); RED CELL DISTRIBUTION WIDTH 12.4 % (11.6-14.8); WHITE BLOOD COUNT 10.4 K/UL (4.8-10.8)
[2019-12-17 05:24] LABS: ALANINE AMINOTRANSFERASE 34 U/L (12-78); ALBUMIN 2.3 G/DL (3.4-5.0); ALBUMIN/GLOBULIN RATIO 0.5 (1.0-2.7); ALKALINE PHOSPHATASE 149 U/L (46-116); ANION GAP 10 mmol/L (5-15); ASPARTATE AMINO TRANSFERASE 46 U/L (15-37); BILIRUBIN,TOTAL 0.3 MG/DL (0.2-1.0); BLOOD UREA NITROGEN 32 mg/dL (7-18); CALCIUM 8.7 MG/DL (8.5-10.1); CARBON DIOXIDE 24 MMOL/L (21-32); CHLORIDE 115 MMOL/L (98-107); CREATININE 1.1 MG/DL (0.55-1.30); GAMMA GLUTAMYL TRANSPEPTIDASE 46 U/L (5-85); PHOSPHORUS 2.9 MG/DL (2.5-4.9); POTASSIUM 2.9 MMOL/L (3.5-5.1); SODIUM 149 MMOL/L (136-145)
[2019-12-17] MEDS ORDERED: Heparin 25,000u/D5W 500ml 500 ML IV SCH (06:00)
[2019-12-17] MEDS ORDERED: Heparin 5000 units/ml inj IV SCH (06:00)
--- NOTE | 2019-12-17 08:36 | Nephrology Progress Note ---
Assessment/Plan Problem List: (1) ROSARIO (acute kidney injury) (2) Dehydration (3) Electrolyte imbalance (4) NSTEMI (non-ST elevated myocardial infarction) Assessment Acute renal failure Severe dehydration Hypernatremia indicative of free water depletion Hypercalcemia likely due to dehydration Elevated hemoglobin likely secondary to hemoconcentration Elevated troponin Poor p.o. intake / failure to thrive Dementia Hypertension Exposure to COVID-19 Plan Covid19 test positive Today's lab results reviewed IV fluid adjusted Aspirin 2D echocardiogram Patient in ICU now discussed with RN Harris catheter N.p.o. except medication IV Protonix Nitropaste Avoid nephrotoxic's Monitor renal parameters Monitor hemoglobin hematocrit Avoid mind altering medication in view of severe lethargy Per orders Subjective ROS Limited/Unobtainable: No Constitutional: Reports: malaise, weakness Objective Objective Last 24 Hour Vital Signs Date Time Temp Pulse Resp B/P (MAP) Pulse Ox O2 Delivery O2 Flow Rate FiO2 12/17/19 07:00 69 13 104/52 (69) 100 12/17/19 06:30 69 20 12/17/19 06:00 69 14 118/81 (93) 100 12/17/19 05:00 69 14 103/54 (70) 100 12/17/19 04:00 97.5 70 15 124/76 (92) 100 12/17/19 04:00 2.0 12/17/19 04:00 70 12/17/19 04:00 Nasal Cannula 2.0 12/17/19 03:00 67 13 131/52 (78) 100 12/17/19 02:00 68 14 133/53 (79) 100 12/17/19 01:00 79 19 124/77 (93) 100 12/17/19 00:00 82 12/17/19 00:00 Nasal Cannula 2.0 12/17/19 00:00 97.8 82 15 138/99 (112) 85 12/17/19 00:00 2.0 12/16/19 23:00 69 26 120/104 (109) 100 12/16/19 22:00 72 14 121/61 (81) 100 12/16/19 21:00 81 20 145/63 (90) 100 12/16/19 20:08 72 12/16/19 20:00 Nasal Cannula 2.0 12/16/19 20:00 2.0 12/16/19 20:00 97.8 70 14 135/71 (92) 100 12/16/19 19:00 69 13 116/57 (76) 12/16/19 18:00 72 20 144/66 (92) 12/16/19 17:00 77 17 144/77 (99) 100 12/16/19 16:00 98.6 73 17 147/65 (92) 100 12/16/19 16:00 Nasal Cannula 2.0 12/16/19 16:00 2.0 12/16/19 15:20 71 12/16/19 15:00 74 15 126/78 (94) 100 12/16/19 14:54 131/67 12/16/19 14:00 73 17 131/67 (88) 12/16/19 13:00 94.0 71 21 143/85 (104) 100 12/16/19 12:00 69 14 142/80 (100) 100 12/16/19 12:00 69 12/16/19 12:00 2.0 12/16/19 12:00 94.0 69 14 142/80 (100) 100 12/16/19 12:00 Nasal Cannula 2.0 12/16/19 11:00 71 14 121/91 (101) 100 12/16/19 10:00 62 13 126/64 (84) 100 12/16/19 09:00 63 14 108/55 (72) 100 Intake and Output 12/16/19 12/17/19 19:00 07:00 Intake Total 1021.402 ml 1329.40 ml Output Total 750 ml 525 ml Balance 271.402 ml 804.40 ml Intake IV Total 1021.402 ml 1329.40 ml Output Urine Total 750 ml 525 ml # Bowel Movements 2 Current Medications Medications (Trade) Dose Ordered Sig/Ovi Route PRN Reason Start Time Stop Time Status Last Admin Dose Admin Aspirin (ASA) 325 mg DAILY ORAL 12/16/19 11:30 01/30/20 11:29 Dextrose 1,000 ml @ 100 mls/hr Q10H IV 12/16/19 11:17 01/15/20 11:16 12/17/19 07:45 Heparin Sodium/ Dextrose 500 ml @ 12.768 mls/ hr ADJUST PER PROTOCOL IV 12/17/19 06:00 01/15/20 10:29 12/17/19 05:53 Lorazepam (Ativan 2mg/ml 1ml) 0.5 mg Q4H PRN IV For Anxiety 12/15/19 21:45 12/22/19 21:44 12/16/19 08:16 Nitroglycerin (Ntg) 1 patch Q24H TDERMAL 12/15/19 14:00 01/14/20 13:59 12/16/19 14:54 Pantoprazole (Protonix) 40 mg Q12HR IVP 12/15/19 21:00 01/14/20 20:59 12/16/19 20:41 Potassium Chloride 100 ml @ 100 mls/hr Q1HR IVPB 12/17/19 08:00 12/17/19 11:59 Potassium Chloride (K-Dur) 20 meq TWICE A DAY ORAL 12/16/19 18:00 03/15/20 17:59 Laboratory Tests 12/16/19 09:10: White Blood Count 10.9H, Red Blood Count 4.31, Hemoglobin 14.1, Hematocrit 39.9 , Mean Corpuscular Volume 92, Mean Corpuscular Hemoglobin 32.7H, Mean Corpuscular Hemoglobin Concent 35.3, Red Cell Distribution Width 12.3, Platelet Count 223, Mean Platelet Volume 10.2H, Neutrophils (%) (Auto) 76.6H, Lymphocytes (%) (Auto) 15.3L, Monocytes (%) (Auto) 7.1, Eosinophils (%) (Auto) 0.2, Basophils (%) (Auto) 0.9, Activated Partial Thromboplast Time 51H, D-Dimer 0.84H, Sodium Level 161*H, Potassium Level 2.9L, Chloride Level 123H, Carbon Dioxide Level 24, Anion Gap 14, Blood Urea Nitrogen 57H, Creatinine 1.4H, Estimat Glomerular Filtration Rate 43.0, Glucose Level 122H, Lactic Acid Level 3.70H, Uric Acid 11.8H, Calcium Level 8.8, Phosphorus Level 2.8, Magnesium Level 2.4, Iron Level 83, Total Iron Binding Capacity 186L, Percent Iron Saturation 45, Unsaturated Iron Binding 103L, Ferritin 668H, Total Bilirubin 0.4 , Gamma Glutamyl Transpeptidase 49, Aspartate Amino Transf (AST/SGOT) 50H, Alanine Aminotransferase (ALT/SGPT) 35, Alkaline Phosphatase 150H, Troponin I 3.279H, C-Reactive Protein, Quantitative 5.4H, Pro-B-Type Natriuretic Peptide 658H, Total Protein 7.4, Albumin 2.6L, Globulin 4.8, Albumin/Globulin Ratio 0.5L , Triglycerides Level 153H, Cholesterol Level 145, LDL Cholesterol 75, HDL Cholesterol 43, Cholesterol/HDL Ratio 3.4, Vitamin B12 Level > 2000H, Folate 13.1, Thyroid Stimulating Hormone (TSH) 4.777H, Valproic Acid (Depakene) Level 8L 12/16/19 16:45: Activated Partial Thromboplast Time 84H, Lactic Acid Level 3.30H 12/17/19 03:46: White Blood Count 10.4, Red Blood Count 3.86L, Hemoglobin 12.8, Hematocrit 35.3L , Mean Corpuscular Volume 92, Mean Corpuscular Hemoglobin 33.3H, Mean Corpuscular Hemoglobin Concent 36.3H, Red Cell Distribution Width 12.4, Platelet Count 209, Mean Platelet Volume 10.2H, Neutrophils (%) (Auto) 76.9H, Lymphocytes (%) (Auto) 15.0L, Monocytes (%) (Auto) 7.2, Eosinophils (%) (Auto) 0.4, Basophils (%) (Auto) 0.5, Activated Partial Thromboplast Time 53H, Sodium Level 149#H, Potassium Level 2.9L, Chloride Level 115H, Carbon Dioxide Level 24 , Anion Gap 10, Blood Urea Nitrogen 32H, Creatinine 1.1, Estimat Glomerular Filtration Rate 56.8, Glucose Level 134H, Lactic Acid Level 1.60, Calcium Level 8.7, Phosphorus Level 2.9, Magnesium Level 1.7L, Total Bilirubin 0.3, Gamma Glutamyl Transpeptidase 46, Aspartate Amino Transf (AST/SGOT) 46H, Alanine Aminotransferase (ALT/SGPT) 34, Alkaline Phosphatase 149H, Troponin I 3.021H, C- Reactive Protein, Quantitative 6.8H, Pro-B-Type Natriuretic Peptide 568H, Total Protein 6.5, Albumin 2.3L, Globulin 4.2, Albumin/Globulin Ratio 0.5L Height (Feet): 5 Height (Inches): 0.00 Weight (Pounds): 118 General Appearance: no apparent distress, lethargic Cardiovascular: normal rate Respiratory/Chest: decreased breath sounds Abdomen: soft Objective No change Robert Foreman MD Dec 17, 2019 08:36
[2019-12-17] MEDS: Pantoprazole Inj IVP SCH ×2 (10:37→20:10)
[2019-12-17] MEDS: Nitroglycerin Patch 0.4mg TDERMAL SCH (13:36)
--- NOTE | 2019-12-17 16:16 | Pulmonolgy Critical Care Note ---
Critical Care - Asmt/Plan Assessment/Plan: Problem List: Covid-19 positive Acute hypoxemic respiratory failure Acute renal failure Severe dehydration Hypernatremia indicative of free water depletion Hypercalcemia likely due to dehydration Elevated hemoglobin likely secondary to hemoconcentration Elevated troponin/NSTEMI Poor p.o. intake / failure to thrive Dementia Hypertension Exposure to COVID-19 Generalized anxiety disorder Plan: * COVID-19 isolation status * Monitor oxygenation closely, only on 2L nasal cannula * CXR prn worsening symptoms * QTc is 497, will not pursue plaquenil * Will ask ID to follow * IVF per renal * Monitor electrolytes * heparin gtt, trend troponin, cardiology consult appreciated * NPO, NGT * Cont depakote 500 mg bid from SNF * DVT ppx: heparin gtt for now * Full Code per prior documented ECP notes Respiratory: monitor respiratory rate, adjust FIO2 Cardiac: continue to monitor HR/BP Renal: keep IV fluid Gastrointestinal: start feedings Endocrine: monitor blood sugar Hematologic: monitor H/H Neurologic: keep patient comfortable Prophylaxis: Heparin Disposition: keep in ICU Time Spent (Minutes): 40 - cc Discussed with: nurses Critical Care - Objective Last 24 Hour Vital Signs Date Time Temp Pulse Resp B/P (MAP) Pulse Ox O2 Delivery O2 Flow Rate FiO2 12/17/19 15:00 69 14 101/52 (68) 100 12/17/19 14:00 77 18 122/64 (83) 100 12/17/19 13:36 104/58 12/17/19 13:00 70 14 104/58 (73) 100 12/17/19 12:00 2.0 12/17/19 12:00 68 12/17/19 12:00 Nasal Cannula 2.0 12/17/19 12:00 98.3 70 25 113/55 (74) 100 12/17/19 11:00 79 20 107/61 (76) 100 12/17/19 10:00 67 13 98/54 (69) 100 12/17/19 09:00 68 14 118/52 (74) 100 12/17/19 08:00 Nasal Cannula 2.0 12/17/19 08:00 2.0 12/17/19 08:00 68 12/17/19 08:00 97.6 67 14 88/49 (62) 100 12/17/19 07:00 69 13 104/52 (69) 100 12/17/19 06:30 69 20 12/17/19 06:00 69 14 118/81 (93) 100 12/17/19 05:00 69 14 103/54 (70) 100 12/17/19 04:00 97.5 70 15 124/76 (92) 100 12/17/19 04:00 2.0 12/17/19 04:00 70 12/17/19 04:00 Nasal Cannula 2.0 12/17/19 03:00 67 13 131/52 (78) 100 12/17/19 02:00 68 14 133/53 (79) 100 12/17/19 01:00 79 19 124/77 (93) 100 12/17/19 00:00 82 12/17/19 00:00 Nasal Cannula 2.0 12/17/19 00:00 97.8 82 15 138/99 (112) 85 12/17/19 00:00 2.0 12/16/19 23:00 69 26 120/104 (109) 100 12/16/19 22:00 72 14 121/61 (81) 100 12/16/19 21:00 81 20 145/63 (90) 100 12/16/19 20:08 72 12/16/19 20:00 Nasal Cannula 2.0 12/16/19 20:00 2.0 12/16/19 20:00 97.8 70 14 135/71 (92) 100 12/16/19 19:00 69 13 116/57 (76) 12/16/19 18:00 72 20 144/66 (92) 12/16/19 17:00 77 17 144/77 (99) 100 Status: somnolent Condition: improving HEENT: atraumatic Heart: HR/BP stable Micro: Microbiology Date/Time Source Procedure Growth Status 12/15/19 09:50 Blood Blood Culture - Preliminary NO GROWTH AFTER 48 HOURS Resulted 12/15/19 09:50 Blood Blood Culture - Preliminary NO GROWTH AFTER 48 HOURS Resulted 12/15/19 09:50 Nasal Nares MRSA Culture - Final Staphylococcus Aureus - Mrsa Complete 12/15/19 09:50 Nasopharynx Coronavirus COVID-19 PCR ([facility]) - Final Complete 12/15/19 09:50 Rectum VRE Culture - Final NO VANCOMYCIN RESISTANT ENTEROCOCCUS ... Complete 12/15/19 00:00 Rectum VRE Culture - Final Complete 12/15/19 00:00 Rectum - Final NO CARBAPENEM-RESISTANT ENTEROBACTERI... Complete Accucheck: 157 Critical Care - Subjective ROS Limited/Unobtainable: Yes Interval Events: COVID 19 PCR positive. Tolerating 2L nasal cannula. Remains altered and agitated but appears that this may be her baseline. Not taking in PO. No respiratory symptoms. I&O: Intake and Output 12/16/19 12/17/19 19:00 07:00 Intake Total 1021.402 ml 1329.40 ml Output Total 750 ml 525 ml Balance 271.402 ml 804.40 ml Intake IV Total 1021.402 ml 1329.40 ml Output Urine Total 750 ml 525 ml # Bowel Movements 2 Rob Robison MD Dec 17, 2019 16:16
--- NOTE | 2019-12-17 16:31 | Infectious Diseases Prog Note ---
Assessment/Plan Problems: (1) COVID-19 virus infection Assessment & Plan: keep an enhanced droplet isolation, give hydroxychloroquin with zinc and vitamin C for five days (2) Viral pneumonia Assessment & Plan: due to COVID 19, will start hydroxychloroquine available, with zinc and vitamin C for five days (3) ROSARIO (acute kidney injury) Assessment & Plan: suspect due to dehydration and poor oral intake improving monitor renal function avoid nephrotoxic's (4) Dehydration Assessment & Plan: continue IV fluid for hydration with close monitoring of sodium level (5) NSTEMI (non-ST elevated myocardial infarction) Assessment & Plan: could be due to COVID 19, cardiology is following monitor troponin level Subjective Allergies: Coded Allergies: MEMANTINE (Unverified Allergy, Unknown, 12/15/19) SERTRALINE (Unverified Allergy, Unknown, 12/15/19) Objective Vital Signs Last 24 Hour Vital Signs Date Time Temp Pulse Resp B/P (MAP) Pulse Ox O2 Delivery O2 Flow Rate FiO2 12/17/19 15:00 69 14 101/52 (68) 100 12/17/19 14:00 77 18 122/64 (83) 100 12/17/19 13:36 104/58 12/17/19 13:00 70 14 104/58 (73) 100 12/17/19 12:00 2.0 12/17/19 12:00 68 12/17/19 12:00 Nasal Cannula 2.0 12/17/19 12:00 98.3 70 25 113/55 (74) 100 12/17/19 11:00 79 20 107/61 (76) 100 12/17/19 10:00 67 13 98/54 (69) 100 12/17/19 09:00 68 14 118/52 (74) 100 12/17/19 08:00 Nasal Cannula 2.0 12/17/19 08:00 2.0 12/17/19 08:00 68 12/17/19 08:00 97.6 67 14 88/49 (62) 100 12/17/19 07:00 69 13 104/52 (69) 100 12/17/19 06:30 69 20 12/17/19 06:00 69 14 118/81 (93) 100 12/17/19 05:00 69 14 103/54 (70) 100 12/17/19 04:00 97.5 70 15 124/76 (92) 100 12/17/19 04:00 2.0 12/17/19 04:00 70 12/17/19 04:00 Nasal Cannula 2.0 12/17/19 03:00 67 13 131/52 (78) 100 12/17/19 02:00 68 14 133/53 (79) 100 12/17/19 01:00 79 19 124/77 (93) 100 12/17/19 00:00 82 12/17/19 00:00 Nasal Cannula 2.0 12/17/19 00:00 97.8 82 15 138/99 (112) 85 12/17/19 00:00 2.0 12/16/19 23:00 69 26 120/104 (109) 100 12/16/19 22:00 72 14 121/61 (81) 100 12/16/19 21:00 81 20 145/63 (90) 100 12/16/19 20:08 72 12/16/19 20:00 Nasal Cannula 2.0 12/16/19 20:00 2.0 12/16/19 20:00 97.8 70 14 135/71 (92) 100 12/16/19 19:00 69 13 116/57 (76) 12/16/19 18:00 72 20 144/66 (92) 12/16/19 17:00 77 17 144/77 (99) 100 Height (Feet): 5 Height (Inches): 0.00 Weight (Pounds): 118 Microbiology Date/Time Source Procedure Growth Status 12/15/19 09:50 Blood Blood Culture - Preliminary NO GROWTH AFTER 48 HOURS Resulted 12/15/19 09:50 Blood Blood Culture - Preliminary NO GROWTH AFTER 48 HOURS Resulted 12/15/19 09:50 Nasal Nares MRSA Culture - Final Staphylococcus Aureus - Mrsa Complete 12/15/19 09:50 Nasopharynx Coronavirus COVID-19 PCR ([facility]) - Final Complete 12/15/19 09:50 Rectum VRE Culture - Final NO VANCOMYCIN RESISTANT ENTEROCOCCUS ... Complete 12/15/19 00:00 Rectum VRE Culture - Final Complete 12/15/19 00:00 Rectum - Final NO CARBAPENEM-RESISTANT ENTEROBACTERI... Complete Laboratory Tests Test 12/16/19 16:45 12/17/19 03:46 4/17/20 12:00 Activated Partial Thromboplast Time 84 SEC (23-33) H 53 SEC (23-33) H 93 SEC (23-33) H Lactic Acid Level 3.30 mmol/L (0.66-2.22) H 1.60 mmol/L (0.4-2.0) White Blood Count 10.4 K/UL (4.8-10.8) Red Blood Count 3.86 M/UL (4.20-5.40) L Hemoglobin 12.8 G/DL (12.0-16.0) Hematocrit 35.3 % (37.0-47.0) L Mean Corpuscular Volume 92 FL (80-99) Mean Corpuscular Hemoglobin 33.3 PG (27.0-31.0) H Mean Corpuscular Hemoglobin Concent 36.3 G/DL (32.0-36.0) H Red Cell Distribution Width 12.4 % (11.6-14.8) Platelet Count 209 K/UL (150-450) Mean Platelet Volume 10.2 FL (6.5-10.1) H Neutrophils (%) (Auto) 76.9 % (45.0-75.0) H Lymphocytes (%) (Auto) 15.0 % (20.0-45.0) L Monocytes (%) (Auto) 7.2 % (1.0-10.0) Eosinophils (%) (Auto) 0.4 % (0.0-3.0) Basophils (%) (Auto) 0.5 % (0.0-2.0) Sodium Level 149 MMOL/L (136-145) #H Potassium Level 2.9 MMOL/L (3.5-5.1) L Chloride Level 115 MMOL/L (98-107) H Carbon Dioxide Level 24 MMOL/L (21-32) Anion Gap 10 mmol/L (5-15) Blood Urea Nitrogen 32 mg/dL (7-18) H Creatinine 1.1 MG/DL (0.55-1.30) Estimat Glomerular Filtration Rate 56.8 mL/min (>60) Glucose Level 134 MG/DL (74-106) H Calcium Level 8.7 MG/DL (8.5-10.1) Phosphorus Level 2.9 MG/DL (2.5-4.9) Magnesium Level 1.7 MG/DL (1.8-2.4) L Total Bilirubin 0.3 MG/DL (0.2-1.0) Gamma Glutamyl Transpeptidase 46 U/L (5-85) Aspartate Amino Transf (AST/SGOT) 46 U/L (15-37) H Alanine Aminotransferase (ALT/SGPT) 34 U/L (12-78) Alkaline Phosphatase 149 U/L (46-116) H Troponin I 3.021 ng/mL (0.000-0.056) C-Reactive Protein, Quantitative 6.8 mg/dL (0.00-0.90) H Pro-B-Type Natriuretic Peptide 568 pg/mL (0-125) H Total Protein 6.5 G/DL (6.4-8.2) Albumin 2.3 G/DL (3.4-5.0) L Globulin 4.2 g/dL Albumin/Globulin Ratio 0.5 (1.0-2.7) L Current Medications Medications (Trade) Dose Ordered Sig/Ovi Route PRN Reason Start Time Stop Time Status Last Admin Dose Admin Aspirin (ASA) 325 mg DAILY ORAL 12/16/19 11:30 01/30/20 11:29 12/17/19 10:38 Dextrose 1,000 ml @ 75 mls/hr [id number] IV 12/17/19 08:45 01/15/20 08:44 12/17/19 10:37 Divalproex Sodium (Depakote) 500 mg EVERY 12 HOURS ORAL 12/17/19 21:00 01/16/20 20:59 Heparin Sodium/ Dextrose 500 ml @ 12.768 mls/ hr ADJUST PER PROTOCOL IV 12/17/19 06:00 01/15/20 10:29 12/17/19 05:53 Lorazepam (Ativan 2mg/ml 1ml) 0.5 mg Q4H PRN IV For Anxiety 12/15/19 21:45 12/22/19 21:44 12/16/19 08:16 Magnesium Sulfate 3000 mg/Sodium Chloride 281 ml @ 93.667 mls/ hr ONCE IV 12/17/19 17:45 12/17/19 20:44 Nitroglycerin (Ntg) 1 patch Q24H TDERMAL 12/15/19 14:00 01/14/20 13:59 12/17/19 13:36 Pantoprazole (Protonix) 40 mg Q12HR IVP 12/15/19 21:00 01/14/20 20:59 12/17/19 10:37 Potassium Chloride 100 ml @ 100 mls/hr NOW ONCE IVPB 12/17/19 15:30 12/17/19 16:29 Potassium Chloride (K-Dur) 20 meq TWICE A DAY ORAL 12/16/19 18:00 03/15/20 17:59 12/17/19 10:38 Sukhjinder Howell M.D. Dec 17, 2019 16:31
[2019-12-17] MEDS ORDERED: MAGNESIUM SULFATE IV SCH (17:45)
[2019-12-17] MEDS ORDERED: NS IV SCH (17:45)
[2019-12-17] MEDS ORDERED: Hydroxychloroquine Fact Sheet MISC ONE (17:45)
--- NOTE | 2019-12-17 18:35 | Diagnostic Imaging Report ---
History: COUGH Exam: XR CXR 1 VIEW Comparison: 12/15/2019 FINDINGS: The lungs are clear. No evidence of pleural effusion. The cardiac and mediastinal contours appear unchanged. Nasogastric tube loops in the proximal stomach with tip at the fundus. Bilateral left greater than right shoulder degenerative changes and likely associated nonacute rotator cuff tears again noted. IMPRESSION: The lungs are clear. No evidence of pleural effusion.
--- NOTE | 2019-12-17 18:39 | Diagnostic Imaging Report ---
History: NGT Exam: XR ABDOMEN single image Comparison: FINDINGS/IMPRESSION: Nasogastric tube loops in the proximal stomach with tip at the fundus.
--- NOTE | 2019-12-17 18:59 | Consultation ---
DATE OF CONSULTATION: 12/17/2019 INFECTIOUS DISEASE CONSULTATION CONSULTING PHYSICIAN: Sukhjinder Howell MD. REQUESTING PHYSICIAN: mariposa Roland REASON FOR CONSULTATION: COVID-19 virus infection with viral pneumonia, recommendation for antimicrobial treatment and further care. HISTORY OF PRESENT ILLNESS: The patient is an 89-year-old female with past medical history of dementia, psych disorder, GERD, [place], Alzheimer's, and hypertension, who was sent from her nursing home facility for agitation and altered mental status. The patient has been nonverbal and making no sense at the facility where there is an outbreak of COVID-19. The patient was placed in isolated area first in the nursing home facility and has not been allowed out of her room, but 2 days prior to her admission, she has been refusing to eat and was less active with poor oral intake. The patient had baseline laboratory work done at the facility, which showed abnormalities in her lab, so she was sent to [facility] Emergency Room for further evaluation and management. The patient was altered, combative, unable to give any history. Most detail were obtained from the medical records. The patient was found to be febrile with temperature of 99, saturating 97% on room air. Chest x-ray showed no acute infiltration. The patient was found to be dehydrated, in renal failure with elevated troponin, which was concerning for myocardial infarction, so she was admitted to the intensive care unit, started on IV fluid for hydration, and was isolated for COVID-19 possible infection. Later on, her test came back positive confirming infection with COVID-19, so Infectious Disease consultation was requested for further management and care. REVIEW OF SYSTEMS: Unable to obtain. The patient is poor historian. Cannot provide any history. PAST MEDICAL HISTORY: Significant for [place], dementia, Alzheimer's, GERD, and hypertension. PAST SURGICAL HISTORY: Not on record. SOCIAL HISTORY: The patient lives at a nursing home facility. She is retired. No recent drugs, tobacco, or alcohol. ALLERGIES: She is allergic to memantine and sertraline. MEDICATIONS: Currently, she is on Depakote, magnesium sulfate, potassium chloride, heparin drip, aspirin, lorazepam, and pantoprazole. LABORATORY DATA: Labs showed white count of 10.4, hemoglobin of 12.8, platelet count of 209,000. BUN of 32, creatinine of 1.1. Lactic acid of 1.6. Troponin 3.021. Ferritin level on admission was 668. C-reactive protein today was 6.8. Microbiology, blood culture x2 on December 14, both no growth for 48 hours. Coronavirus PCR was detected. MRSA swab of the nares was positive. IMAGING: Chest x-ray on the showed no evidence of acute cardiopulmonary disease. Head CT scan showed no evidence of acute intracranial hemorrhage, mass effect, or cortical edema. PHYSICAL EXAMINATION: VITAL SIGNS: Temperature 98.3, pulse 68, respirations 25, blood pressure 113/55, saturation 100% on 2 L nasal cannula. GENERAL: An elderly female, lying in bed, altered, unresponsive, not in acute distress. HEENT: Normocephalic and atraumatic. Pupils reactive to light equally. Moist oral mucosa. No exudate or thrush. NECK: Supple. No lymphadenopathy. CARDIOVASCULAR: Regular rate and rhythm. No murmur or gallop. LUNGS: Clear bilaterally. Diminished breathing sounds at the bases. No wheezing or rhonchi. ABDOMEN: Soft, nontender, and nondistended. Normal bowel sounds. No hepatosplenomegaly or ascites. EXTREMITIES: No edema or cyanosis. SKIN: No rash. No hives. ASSESSMENT AND RECOMMENDATION: 1. COVID-19 viral infection. Keep the patient in droplet isolation. We will start hydroxychloroquine with zinc and vitamin C if available in our pharmacy. 2. Viral pneumonia, suspect due to the above. We will start hydroxychloroquine if available with zinc and vitamin C for 5 days' course of treatment. Repeat chest x-ray and blood culture to rule out sepsis. 3. Acute kidney failure, suspect due to dehydration and poor oral intake, improving. Monitor renal function. Avoid nephrotoxics. 4. Dehydration with hypernatremia. Continue free water replacement with hydration and close monitor of sodium level. 5. [id number] myocardial infarction. Could be due to COVID-19. Cardiology is following. Monitor troponin level. Thank you for the consult. ID will continue to follow. Sukhjinder Howell M.D. DR: Alejandro JOB#: [id number] CC: [email or web address]
[2019-12-17] MEDS: Depakote 500mg tab ORAL SCH (20:10)
[2019-12-17] MEDS: Ascorbic Acid 500mg tab NG SCH (20:11)
[2019-12-17] MEDS: Hydroxychloroquine 400mg tab ORAL SCH (20:11)
[2019-12-18] VITALS (20 sets, daily range): BP systolic 82–160; BP diastolic 44–82
[2019-12-18 06:36] LABS: BASOPHILS % (AUTO) 0.4 % (0.0-2.0); EOSINOPHILS % (AUTO) 0.3 % (0.0-3.0); LYMPHOCYTES % (AUTO) 19.7 % (20.0-45.0); MEAN CORPUSCULAR VOLUME 90 FL (80-99); MONOCYTES % (AUTO) 4.9 % (1.0-10.0); NEUTROPHILS % (AUTO) 74.7 % (45.0-75.0); PLATELET COUNT 197 K/UL (150-450); RED BLOOD COUNT 3.76 M/UL (4.20-5.40); WHITE BLOOD COUNT 8.3 K/UL (4.8-10.8)
[2019-12-18 07:03] LABS: ALANINE AMINOTRANSFERASE 28 U/L (12-78); ALBUMIN 2.2 G/DL (3.4-5.0); ALBUMIN/GLOBULIN RATIO 0.5 (1.0-2.7); ALKALINE PHOSPHATASE 137 U/L (46-116); ANION GAP 10 mmol/L (5-15); ASPARTATE AMINO TRANSFERASE 43 U/L (15-37); BILIRUBIN,TOTAL 0.3 MG/DL (0.2-1.0); BLOOD UREA NITROGEN 16 mg/dL (7-18); CALCIUM 8.5 MG/DL (8.5-10.1); CARBON DIOXIDE 25 MMOL/L (21-32); CHLORIDE 108 MMOL/L (98-107); CREATININE 1.1 MG/DL (0.55-1.30); PHOSPHORUS 2.1 MG/DL (2.5-4.9); SODIUM 143 MMOL/L (136-145)
[2019-12-18] MEDS ORDERED: Heparin 5000 units/ml inj IV SCH (07:15)
[2019-12-18] MEDS ORDERED: Heparin 25,000u/D5W 500ml 500 ML IV SCH ×2 (07:15→08:00)
[2019-12-18 07:18] LABS: FERRITIN 490 NG/ML (8-388); LACTATE DEHYDROGENASE 307 U/L (81-234)
[2019-12-18 07:54] LABS: POTASSIUM 2.6 MMOL/L (3.5-5.1)
[2019-12-18] MEDS: Hydroxychloroquine 400mg tab ORAL SCH (08:07)
[2019-12-18] MEDS: Depakote 500mg tab ORAL SCH (08:08)
[2019-12-18] MEDS: Pantoprazole Inj IVP SCH ×2 (08:08→21:08)
[2019-12-18] MEDS: Ascorbic Acid 500mg tab NG SCH ×3 (08:08→18:00)
[2019-12-18] MEDS ORDERED: Zinc Sulfate 220mg cap NG SCH (09:00)
[2019-12-18] MEDS ORDERED: Potassium Phosphate 21 MM in NS 275 ML IV ONE (10:15)
--- NOTE | 2019-12-18 10:22 | Nephrology Progress Note ---
Assessment/Plan Problem List: (1) ROSARIO (acute kidney injury) (2) Dehydration (3) Electrolyte imbalance (4) NSTEMI (non-ST elevated myocardial infarction) Assessment Acute renal failure Severe dehydration Hypernatremia indicative of free water depletion Hypercalcemia likely due to dehydration Elevated hemoglobin likely secondary to hemoconcentration Elevated troponin Poor p.o. intake / failure to thrive Dementia Hypertension Exposure to COVID-19 Plan Covid19 test positive Today's lab results reviewed IV fluid adjusted Aspirin and Plavix 2D echocardiogram, results still pending Patient in ICU now discussed with RN Harris catheter N.p.o. except medication IV Protonix Nitropaste Avoid nephrotoxic's Monitor renal parameters Monitor hemoglobin hematocrit Avoid mind altering medication in view of severe lethargy Per orders Subjective ROS Limited/Unobtainable: No Constitutional: Reports: malaise, weakness Objective Objective Last 24 Hour Vital Signs Date Time Temp Pulse Resp B/P (MAP) Pulse Ox O2 Delivery O2 Flow Rate FiO2 12/18/19 10:00 67 14 120/56 (77) 100 12/18/19 09:00 68 16 82/44 (57) 100 12/18/19 08:00 98.7 75 15 135/69 (91) 100 12/18/19 08:00 74 12/18/19 08:00 Nasal Cannula 2.0 12/18/19 08:00 2.0 12/18/19 07:00 75 18 129/53 (78) 100 12/18/19 06:00 76 17 128/55 (79) 100 12/18/19 05:00 99.8 72 18 116/47 (70) 100 12/18/19 04:00 74 19 111/49 (69) 100 12/18/19 04:00 2.0 12/18/19 04:00 Nasal Cannula 2.0 12/18/19 03:29 77 12/18/19 03:00 79 17 114/50 (71) 100 12/18/19 02:00 81 26 127/63 (84) 100 12/18/19 01:00 99.2 86 20 128/54 (78) 100 12/18/19 00:00 80 18 126/62 (83) 100 12/18/19 00:00 80 12/18/19 00:00 2.0 12/18/19 00:00 Nasal Cannula 2.0 12/17/19 23:00 87 18 137/61 (86) 100 12/17/19 22:00 81 17 98/54 (69) 100 12/17/19 21:00 79 18 102/81 (88) 100 12/17/19 20:10 67 12/17/19 20:00 Nasal Cannula 2.0 12/17/19 20:00 98.5 69 14 108/56 (73) 100 12/17/19 20:00 2.0 12/17/19 19:00 75 15 112/56 (74) 100 12/17/19 18:00 73 18 101/55 (70) 100 12/17/19 17:00 73 15 112/55 (74) 100 12/17/19 16:00 72 12/17/19 16:00 2.0 12/17/19 16:00 Nasal Cannula 2.0 12/17/19 16:00 98.6 72 14 103/59 (74) 100 12/17/19 15:00 69 14 101/52 (68) 100 12/17/19 14:00 77 18 122/64 (83) 100 12/17/19 13:36 104/58 12/17/19 13:00 70 14 104/58 (73) 100 12/17/19 12:00 2.0 12/17/19 12:00 68 12/17/19 12:00 Nasal Cannula 2.0 12/17/19 12:00 98.3 70 25 113/55 (74) 100 12/17/19 11:00 79 20 107/61 (76) 100 Intake and Output 12/17/19 12/18/19 19:00 07:00 Intake Total 853.216 ml 1133.216 ml Output Total 530 ml 850 ml Balance 323.216 ml 283.216 ml Intake IV Total 833.216 ml 1053.216 ml Other 20 ml 80 ml Output Urine Total 530 ml 850 ml # Bowel Movements 2 Current Medications Medications (Trade) Dose Ordered Sig/Ovi Route PRN Reason Start Time Stop Time Status Last Admin Dose Admin Ascorbic Acid (Vitamin C) 1,000 mg BID NG 12/17/19 18:00 12/22/19 09:01 12/18/19 08:08 Aspirin (ASA) 325 mg DAILY ORAL 12/16/19 11:30 01/30/20 11:29 12/18/19 08:08 Dextrose 1,000 ml @ 75 mls/hr [id number] IV 12/17/19 08:45 01/15/20 08:44 12/17/19 21:57 Divalproex Sodium (Depakote) 500 mg EVERY 12 HOURS ORAL 12/17/19 21:00 01/16/20 20:59 12/18/19 08:08 Heparin Sodium/ Dextrose 500 ml @ 14.896 mls/ hr ADJUST PER PROTOCOL IV 12/18/19 08:00 01/17/20 07:14 12/18/19 08:11 Hydroxychloroquine Sulfate (Plaquenil) 200 mg BID ORAL 12/18/19 18:00 12/22/19 09:01 Lorazepam (Ativan 2mg/ml 1ml) 0.5 mg Q4H PRN IV For Anxiety 12/15/19 21:45 12/22/19 21:44 12/16/19 08:16 Nitroglycerin (Ntg) 1 patch Q24H TDERMAL 12/15/19 14:00 01/14/20 13:59 12/17/19 13:36 Pantoprazole (Protonix) 40 mg Q12HR IVP 12/15/19 21:00 01/14/20 20:59 12/18/19 08:08 Potassium Phosphate 21 mm/ Sodium Chloride 282 ml @ 47 mls/hr ONCE ONCE IV 12/18/19 10:15 12/18/19 16:14 Potassium Chloride 100 ml @ 50 mls/hr Q4HR IVPB 12/18/19 13:00 12/18/19 22:59 Potassium Chloride (K-Dur) 20 meq TWICE A DAY ORAL 12/16/19 18:00 03/15/20 17:59 12/18/19 08:08 Zinc Sulfate (Zinc Sulfate) 220 mg DAILY NG 12/18/19 09:00 12/22/19 09:01 12/18/19 08:50 Laboratory Tests 12/17/19 12:00: Activated Partial Thromboplast Time 93H 12/18/19 05:00: Activated Partial Thromboplast Time 59H, White Blood Count 8.3, Red Blood Count 3.76L, Hemoglobin 12.0, Hematocrit 34.0L, Mean Corpuscular Volume 90, Mean Corpuscular Hemoglobin 32.0H, Mean Corpuscular Hemoglobin Concent 35.3, Red Cell Distribution Width 12.0, Platelet Count 197, Mean Platelet Volume 10.1, Neutrophils (%) (Auto) 74.7, Lymphocytes (%) (Auto) 19.7L, Monocytes (%) (Auto) 4.9, Eosinophils (%) (Auto) 0.3, Basophils (%) (Auto) 0.4, Sodium Level 143, Potassium Level 2.6*L, Chloride Level 108H, Carbon Dioxide Level 25, Anion Gap 10, Blood Urea Nitrogen 16, Creatinine 1.1, Estimat Glomerular Filtration Rate 56.8, Glucose Level 124H, Uric Acid 8.4H, Calcium Level 8.5, Phosphorus Level 2.1L, Magnesium Level 2.2, Ferritin 490H, Total Bilirubin 0.3, Aspartate Amino Transf (AST/SGOT) 43H, Alanine Aminotransferase (ALT/SGPT) 28, Alkaline Phosphatase 137H, Lactate Dehydrogenase 307H, Troponin I 2.631H, C-Reactive Protein, Quantitative 6.7H, Total Protein 6.3L, Albumin 2.2L, Globulin 4.1, Albumin/Globulin Ratio 0.5L Height (Feet): 5 Height (Inches): 0.00 Weight (Pounds): 117 General Appearance: no apparent distress Objective No change Robert Foreman MD Dec 18, 2019 10:22
[2019-12-18] MEDS: Nitroglycerin Patch 0.4mg TDERMAL SCH (13:09)
[2019-12-18] MEDS ORDERED: Sterile Water Irrig 1000ml IRRIG ONE (13:32)
[2019-12-18] MEDS ORDERED: D5 1/2NS 1000ml IV ONE (13:32)
[2019-12-18] MEDS ORDERED: Tubing IV Secondary IV ONE (13:32)
[2019-12-18] MEDS ORDERED: NS 275ml ONE (13:32)
[2019-12-18] MEDS ORDERED: D5W 550ml IV ONE (13:32)
--- NOTE | 2019-12-18 14:51 | Pulmonolgy Critical Care Note ---
Critical Care - Asmt/Plan Problems: (1) COVID-19 virus infection (2) Viral pneumonia (3) NSTEMI (non-ST elevated myocardial infarction) (4) Electrolyte imbalance (5) ROSARIO (acute kidney injury) (6) Dehydration (7) Renal failure (8) Encephalopathy Assessment/Plan: Problem List: Covid-19 positive Acute hypoxemic respiratory failure Acute renal failure Severe dehydration Hypernatremia indicative of free water depletion Hypercalcemia likely due to dehydration Elevated hemoglobin likely secondary to hemoconcentration Elevated troponin/NSTEMI Poor p.o. intake / failure to thrive Dementia Hypertension Exposure to COVID-19 Generalized anxiety disorder Plan: * COVID-19 isolation status * Monitor oxygenation closely, only on 2L nasal cannula * CXR prn worsening symptoms * Plaquenil per ID, monitor qTC * IVF per renal * Monitor electrolytes * heparin gtt, trend troponin, cardiology consult appreciated * NPO, NGTF's * Cont depakote 500 mg bid from SNF * DVT ppx: heparin gtt for now * Full Code per prior documented ECP notes Prophylaxis: Heparin - gtt Disposition: keep in ICU Time Spent (Minutes): 40 Notes Reviewed: cardio, renal, ID Discussed with: nurses, consultants Critical Care - Objective Last 24 Hour Vital Signs Date Time Temp Pulse Resp B/P (MAP) Pulse Ox O2 Delivery O2 Flow Rate FiO2 12/18/19 13:09 114/62 12/18/19 13:00 64 15 106/57 (73) 100 12/18/19 12:00 69 16 114/62 (79) 100 12/18/19 12:00 2.0 12/18/19 12:00 65 12/18/19 12:00 Nasal Cannula 2.0 12/18/19 11:00 67 16 114/52 (72) 100 12/18/19 10:00 67 14 120/56 (77) 100 12/18/19 09:00 68 16 82/44 (57) 100 12/18/19 08:00 98.7 75 15 135/69 (91) 100 12/18/19 08:00 74 12/18/19 08:00 Nasal Cannula 2.0 12/18/19 08:00 2.0 12/18/19 07:00 75 18 129/53 (78) 100 12/18/19 06:00 76 17 128/55 (79) 100 12/18/19 05:00 99.8 72 18 116/47 (70) 100 12/18/19 04:00 74 19 111/49 (69) 100 12/18/19 04:00 2.0 12/18/19 04:00 Nasal Cannula 2.0 12/18/19 03:29 77 12/18/19 03:00 79 17 114/50 (71) 100 12/18/19 02:00 81 26 127/63 (84) 100 12/18/19 01:00 99.2 86 20 128/54 (78) 100 12/18/19 00:00 80 18 126/62 (83) 100 12/18/19 00:00 80 12/18/19 00:00 2.0 12/18/19 00:00 Nasal Cannula 2.0 12/17/19 23:00 87 18 137/61 (86) 100 12/17/19 22:00 81 17 98/54 (69) 100 12/17/19 21:00 79 18 102/81 (88) 100 12/17/19 20:10 67 12/17/19 20:00 Nasal Cannula 2.0 12/17/19 20:00 98.5 69 14 108/56 (73) 100 12/17/19 20:00 2.0 12/17/19 19:00 75 15 112/56 (74) 100 12/17/19 18:00 73 18 101/55 (70) 100 12/17/19 17:00 73 15 112/55 (74) 100 12/17/19 16:00 72 12/17/19 16:00 2.0 12/17/19 16:00 Nasal Cannula 2.0 12/17/19 16:00 98.6 72 14 103/59 (74) 100 12/17/19 15:00 69 14 101/52 (68) 100 Status: awake, other - confused Condition: critical Lungs: rhonchi Heart: HR/BP stable Abdomen: soft, non-tender, active bowel sounds Extremities: no C/C/E Accucheck: 157 Blood Sugars: BS controlled Critical Care - Subjective ROS Limited/Unobtainable: Yes ICU Day: 3 Interval Events: Remains on 2L AFVSS started on Plaquenil no cough no distress NGTF's started Condition: critical IV Access: peripheral EKG Rhythm: Sinus Rhythm Sputum Amount: None Fluids: D5W@75 Drips: N/A Tube Feeding Amount: 10 I&O: Intake and Output 12/17/19 12/18/19 19:00 07:00 Intake Total 853.216 ml 1133.216 ml Output Total 530 ml 850 ml Balance 323.216 ml 283.216 ml Intake IV Total 833.216 ml 1053.216 ml Other 20 ml 80 ml Output Urine Total 530 ml 850 ml # Bowel Movements 2 Subjective: LINDA Labs: Laboratory Tests Test 12/18/19 05:00 12/18/19 14:00 White Blood Count 8.3 K/UL (4.8-10.8) Red Blood Count 3.76 M/UL (4.20-5.40) L Hemoglobin 12.0 G/DL (12.0-16.0) Hematocrit 34.0 % (37.0-47.0) L Mean Corpuscular Volume 90 FL (80-99) Mean Corpuscular Hemoglobin 32.0 PG (27.0-31.0) H Mean Corpuscular Hemoglobin Concent 35.3 G/DL (32.0-36.0) Red Cell Distribution Width 12.0 % (11.6-14.8) Platelet Count 197 K/UL (150-450) Mean Platelet Volume 10.1 FL (6.5-10.1) Neutrophils (%) (Auto) 74.7 % (45.0-75.0) Lymphocytes (%) (Auto) 19.7 % (20.0-45.0) L Monocytes (%) (Auto) 4.9 % (1.0-10.0) Eosinophils (%) (Auto) 0.3 % (0.0-3.0) Basophils (%) (Auto) 0.4 % (0.0-2.0) Activated Partial Thromboplast Time 59 SEC (23-33) H Pending Sodium Level 143 MMOL/L (136-145) Potassium Level 2.6 MMOL/L (3.5-5.1) *L Chloride Level 108 MMOL/L (98-107) H Carbon Dioxide Level 25 MMOL/L (21-32) Anion Gap 10 mmol/L (5-15) Blood Urea Nitrogen 16 mg/dL (7-18) Creatinine 1.1 MG/DL (0.55-1.30) Estimat Glomerular Filtration Rate 56.8 mL/min (>60) Glucose Level 124 MG/DL (74-106) H Uric Acid 8.4 MG/DL (2.6-7.2) H Calcium Level 8.5 MG/DL (8.5-10.1) Phosphorus Level 2.1 MG/DL (2.5-4.9) L Magnesium Level 2.2 MG/DL (1.8-2.4) Ferritin 490 NG/ML (8-388) H Total Bilirubin 0.3 MG/DL (0.2-1.0) Aspartate Amino Transf (AST/SGOT) 43 U/L (15-37) H Alanine Aminotransferase (ALT/SGPT) 28 U/L (12-78) Alkaline Phosphatase 137 U/L (46-116) H Lactate Dehydrogenase 307 U/L (81-234) H Troponin I 2.631 ng/mL (0.000-0.056) C-Reactive Protein, Quantitative 6.7 mg/dL (0.00-0.90) H Total Protein 6.3 G/DL (6.4-8.2) L Albumin 2.2 G/DL (3.4-5.0) L Globulin 4.1 g/dL Albumin/Globulin Ratio 0.5 (1.0-2.7) L Boby Toledo MD Dec 18, 2019 14:51
--- NOTE | 2019-12-18 15:55 | Cardiology Progress Note ---
Assessment/Plan Assessment/Plan 1. [id number] myocardial infarction, possibly related to demand. 2. Acute renal failure in the setting of volume depletion. 3. Hypernatremia secondary to volume depletion. 4. 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 5. Dementia. 6. Lactic acidosis. 7. History of bradycardia secondary to medications. 8. bacteremia trop trending down still lwo grade fever ekg no st t wave abn covid status postitive off hepearin iv on sq herparin echo not performed as covid + on sdu now ekg reviewed qt interval seems fine on hydroxychlorquine tele sinus not need restraint at this time per rn sats are fine follow on tele on ecotrin start statin on feeding will dc ivf on iv vanco await id input Subjective ROS Limited/Unobtainable: Yes Subjective per rn no cough no fever no vomit confused, screeas when wakes up no diarrhea Objective Last 24 Hour Vital Signs Date Time Temp Pulse Resp B/P (MAP) Pulse Ox O2 Delivery O2 Flow Rate FiO2 12/18/19 15:00 72 14 127/60 (82) 100 12/18/19 14:00 73 13 130/61 (84) 100 12/18/19 13:09 114/62 12/18/19 13:00 64 15 106/57 (73) 100 12/18/19 12:00 69 16 114/62 (79) 100 12/18/19 12:00 2.0 12/18/19 12:00 65 12/18/19 12:00 Nasal Cannula 2.0 12/18/19 11:00 67 16 114/52 (72) 100 12/18/19 10:00 67 14 120/56 (77) 100 12/18/19 09:00 68 16 82/44 (57) 100 12/18/19 08:00 98.7 75 15 135/69 (91) 100 12/18/19 08:00 74 12/18/19 08:00 Nasal Cannula 2.0 12/18/19 08:00 2.0 12/18/19 07:00 75 18 129/53 (78) 100 12/18/19 06:00 76 17 128/55 (79) 100 12/18/19 05:00 99.8 72 18 116/47 (70) 100 12/18/19 04:00 74 19 111/49 (69) 100 12/18/19 04:00 2.0 12/18/19 04:00 Nasal Cannula 2.0 12/18/19 03:29 77 12/18/19 03:00 79 17 114/50 (71) 100 12/18/19 02:00 81 26 127/63 (84) 100 12/18/19 01:00 99.2 86 20 128/54 (78) 100 12/18/19 00:00 80 18 126/62 (83) 100 12/18/19 00:00 80 12/18/19 00:00 2.0 12/18/19 00:00 Nasal Cannula 2.0 12/17/19 23:00 87 18 137/61 (86) 100 12/17/19 22:00 81 17 98/54 (69) 100 12/17/19 21:00 79 18 102/81 (88) 100 12/17/19 20:10 67 12/17/19 20:00 Nasal Cannula 2.0 12/17/19 20:00 98.5 69 14 108/56 (73) 100 12/17/19 20:00 2.0 12/17/19 19:00 75 15 112/56 (74) 100 12/17/19 18:00 73 18 101/55 (70) 100 12/17/19 17:00 73 15 112/55 (74) 100 12/17/19 16:00 72 12/17/19 16:00 2.0 12/17/19 16:00 Nasal Cannula 2.0 12/17/19 16:00 98.6 72 14 103/59 (74) 100 General Appearance: no apparent distress, patient on isolation, isolation precautions Intake and Output 12/17/19 12/18/19 19:00 07:00 Intake Total 853.216 ml 1133.216 ml Output Total 530 ml 850 ml Balance 323.216 ml 283.216 ml Intake IV Total 833.216 ml 1053.216 ml Other 20 ml 80 ml Output Urine Total 530 ml 850 ml # Bowel Movements 2 Laboratory Tests Test 12/18/19 05:00 12/18/19 14:00 White Blood Count 8.3 K/UL (4.8-10.8) Red Blood Count 3.76 M/UL (4.20-5.40) L Hemoglobin 12.0 G/DL (12.0-16.0) Hematocrit 34.0 % (37.0-47.0) L Mean Corpuscular Volume 90 FL (80-99) Mean Corpuscular Hemoglobin 32.0 PG (27.0-31.0) H Mean Corpuscular Hemoglobin Concent 35.3 G/DL (32.0-36.0) Red Cell Distribution Width 12.0 % (11.6-14.8) Platelet Count 197 K/UL (150-450) Mean Platelet Volume 10.1 FL (6.5-10.1) Neutrophils (%) (Auto) 74.7 % (45.0-75.0) Lymphocytes (%) (Auto) 19.7 % (20.0-45.0) L Monocytes (%) (Auto) 4.9 % (1.0-10.0) Eosinophils (%) (Auto) 0.3 % (0.0-3.0) Basophils (%) (Auto) 0.4 % (0.0-2.0) Activated Partial Thromboplast Time 59 SEC (23-33) H 87 SEC (23-33) H Sodium Level 143 MMOL/L (136-145) Potassium Level 2.6 MMOL/L (3.5-5.1) *L Chloride Level 108 MMOL/L (98-107) H Carbon Dioxide Level 25 MMOL/L (21-32) Anion Gap 10 mmol/L (5-15) Blood Urea Nitrogen 16 mg/dL (7-18) Creatinine 1.1 MG/DL (0.55-1.30) Estimat Glomerular Filtration Rate 56.8 mL/min (>60) Glucose Level 124 MG/DL (74-106) H Uric Acid 8.4 MG/DL (2.6-7.2) H Calcium Level 8.5 MG/DL (8.5-10.1) Phosphorus Level 2.1 MG/DL (2.5-4.9) L Magnesium Level 2.2 MG/DL (1.8-2.4) Ferritin 490 NG/ML (8-388) H Total Bilirubin 0.3 MG/DL (0.2-1.0) Aspartate Amino Transf (AST/SGOT) 43 U/L (15-37) H Alanine Aminotransferase (ALT/SGPT) 28 U/L (12-78) Alkaline Phosphatase 137 U/L (46-116) H Lactate Dehydrogenase 307 U/L (81-234) H Troponin I 2.631 ng/mL (0.000-0.056) C-Reactive Protein, Quantitative 6.7 mg/dL (0.00-0.90) H Total Protein 6.3 G/DL (6.4-8.2) L Albumin 2.2 G/DL (3.4-5.0) L Globulin 4.1 g/dL Albumin/Globulin Ratio 0.5 (1.0-2.7) L Kendell Rosen MD Dec 18, 2019 15:55
--- NOTE | 2019-12-18 20:23 | Infectious Diseases Prog Note ---
Assessment/Plan Problems: (1) COVID-19 virus infection Assessment & Plan: keep in enhanced droplet isolation, continue hydroxychloroquin with zinc and vitamin C for five days (2) Viral pneumonia Assessment & Plan: due to COVID 19, continue hydroxychloroquine , with zinc and vitamin C for five days, monitor CXR (3) ROSARIO (acute kidney injury) Assessment & Plan: suspect due to dehydration and poor oral intake improving monitor renal function avoid nephrotoxic's (4) Dehydration Assessment & Plan: continue IV fluid for hydration with close monitoring of sodium level (5) NSTEMI (non-ST elevated myocardial infarction) Assessment & Plan: could be due to COVID 19, cardiology is following monitor troponin level Subjective ROS Limited/Unobtainable: Yes Allergies: Coded Allergies: MEMANTINE (Unverified Allergy, Unknown, 12/15/19) SERTRALINE (Unverified Allergy, Unknown, 12/15/19) Subjective no fever today, no SOB, confused and tried to pull her NGT out Objective Vital Signs Last 24 Hour Vital Signs Date Time Temp Pulse Resp B/P (MAP) Pulse Ox O2 Delivery O2 Flow Rate FiO2 12/18/19 17:00 76 17 129/60 (83) 100 12/18/19 16:00 2.0 12/18/19 16:00 73 12/18/19 16:00 98.7 70 15 119/56 (77) 100 12/18/19 16:00 Nasal Cannula 2.0 12/18/19 15:00 72 14 127/60 (82) 100 12/18/19 14:00 73 13 130/61 (84) 100 12/18/19 13:09 114/62 12/18/19 13:00 64 15 106/57 (73) 100 12/18/19 12:00 69 16 114/62 (79) 100 12/18/19 12:00 2.0 12/18/19 12:00 65 12/18/19 12:00 Nasal Cannula 2.0 12/18/19 11:00 67 16 114/52 (72) 100 12/18/19 10:00 67 14 120/56 (77) 100 12/18/19 09:00 68 16 82/44 (57) 100 12/18/19 08:00 98.7 75 15 135/69 (91) 100 12/18/19 08:00 74 12/18/19 08:00 Nasal Cannula 2.0 12/18/19 08:00 2.0 12/18/19 07:00 75 18 129/53 (78) 100 12/18/19 06:00 76 17 128/55 (79) 100 12/18/19 05:00 99.8 72 18 116/47 (70) 100 12/18/19 04:00 74 19 111/49 (69) 100 12/18/19 04:00 2.0 12/18/19 04:00 Nasal Cannula 2.0 12/18/19 03:29 77 12/18/19 03:00 79 17 114/50 (71) 100 12/18/19 02:00 81 26 127/63 (84) 100 12/18/19 01:00 99.2 86 20 128/54 (78) 100 12/18/19 00:00 80 18 126/62 (83) 100 12/18/19 00:00 80 12/18/19 00:00 2.0 12/18/19 00:00 Nasal Cannula 2.0 12/17/19 23:00 87 18 137/61 (86) 100 12/17/19 22:00 81 17 98/54 (69) 100 12/17/19 21:00 79 18 102/81 (88) 100 Height (Feet): 5 Height (Inches): 0.00 Weight (Pounds): 117 General Appearance: WD/WN, no acute distress HEENT: normocephalic, atraumatic, anicteric, mucous membranes moist, PERRL Respiratory/Chest: chest wall non-tender, no respiratory distress, no accessory muscle use, decreased breath sounds Cardiovascular: normal peripheral pulses, normal rate, regular rhythm, no gallop/murmur, no JVD Abdomen: normal bowel sounds, soft, non tender, no organomegaly, non distended , no mass, no scars Extremities: no cyanosis, no clubbing Skin: no rash, no lesions 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: alert, other - confused Lymphatic: no neck adenopathy, no groin adenopathy Musculoskeletal: normal muscle bulk, no effusion Laboratory Tests Test 12/18/19 05:00 12/18/19 14:00 White Blood Count 8.3 K/UL (4.8-10.8) Red Blood Count 3.76 M/UL (4.20-5.40) L Hemoglobin 12.0 G/DL (12.0-16.0) Hematocrit 34.0 % (37.0-47.0) L Mean Corpuscular Volume 90 FL (80-99) Mean Corpuscular Hemoglobin 32.0 PG (27.0-31.0) H Mean Corpuscular Hemoglobin Concent 35.3 G/DL (32.0-36.0) Red Cell Distribution Width 12.0 % (11.6-14.8) Platelet Count 197 K/UL (150-450) Mean Platelet Volume 10.1 FL (6.5-10.1) Neutrophils (%) (Auto) 74.7 % (45.0-75.0) Lymphocytes (%) (Auto) 19.7 % (20.0-45.0) L Monocytes (%) (Auto) 4.9 % (1.0-10.0) Eosinophils (%) (Auto) 0.3 % (0.0-3.0) Basophils (%) (Auto) 0.4 % (0.0-2.0) Activated Partial Thromboplast Time 59 SEC (23-33) H 87 SEC (23-33) H Sodium Level 143 MMOL/L (136-145) Potassium Level 2.6 MMOL/L (3.5-5.1) *L Chloride Level 108 MMOL/L (98-107) H Carbon Dioxide Level 25 MMOL/L (21-32) Anion Gap 10 mmol/L (5-15) Blood Urea Nitrogen 16 mg/dL (7-18) Creatinine 1.1 MG/DL (0.55-1.30) Estimat Glomerular Filtration Rate 56.8 mL/min (>60) Glucose Level 124 MG/DL (74-106) H Uric Acid 8.4 MG/DL (2.6-7.2) H Calcium Level 8.5 MG/DL (8.5-10.1) Phosphorus Level 2.1 MG/DL (2.5-4.9) L Magnesium Level 2.2 MG/DL (1.8-2.4) Ferritin 490 NG/ML (8-388) H Total Bilirubin 0.3 MG/DL (0.2-1.0) Aspartate Amino Transf (AST/SGOT) 43 U/L (15-37) H Alanine Aminotransferase (ALT/SGPT) 28 U/L (12-78) Alkaline Phosphatase 137 U/L (46-116) H Lactate Dehydrogenase 307 U/L (81-234) H Troponin I 2.631 ng/mL (0.000-0.056) C-Reactive Protein, Quantitative 6.7 mg/dL (0.00-0.90) H Total Protein 6.3 G/DL (6.4-8.2) L Albumin 2.2 G/DL (3.4-5.0) L Globulin 4.1 g/dL Albumin/Globulin Ratio 0.5 (1.0-2.7) L Current Medications Medications (Trade) Dose Ordered Sig/Ovi Route PRN Reason Start Time Stop Time Status Last Admin Dose Admin Ascorbic Acid (Vitamin C) 1,000 mg BID NG 12/18/19 18:00 12/21/19 18:01 Aspirin (Ecotrin) 81 mg DAILY ORAL 12/19/19 09:00 02/02/20 08:59 Dextrose 1,000 ml @ 50 mls/hr Q20H IV 12/18/19 18:00 01/17/20 15:57 12/18/19 18:39 Divalproex Sodium (Depakote) 500 mg EVERY 12 HOURS ORAL 12/18/19 21:00 01/16/20 20:59 Hydroxychloroquine Sulfate (Plaquenil) 200 mg BID ORAL 12/18/19 18:00 12/21/19 18:01 Lorazepam (Ativan 2mg/ml 1ml) 0.5 mg Q4H PRN IV For Anxiety 12/18/19 18:00 12/22/19 17:59 Nitroglycerin (Ntg) 1 patch Q24H TDERMAL 12/19/19 14:00 01/14/20 13:59 Pantoprazole (Protonix) 40 mg Q12HR IVP 12/18/19 21:00 01/14/20 20:59 Potassium Chloride 100 ml @ 50 mls/hr Q4HR IVPB 12/18/19 21:00 12/18/19 22:59 Potassium Chloride (K-Dur) 20 meq TWICE A DAY ORAL 12/18/19 18:00 03/15/20 17:59 Zinc Sulfate (Zinc Sulfate) 220 mg DAILY NG 12/19/19 09:00 12/22/19 09:01 Sukhjinder Howell M.D. Dec 18, 2019 20:23
[2019-12-18] MEDS ORDERED: Depakote 500mg tab ORAL SCH (21:00)
[2019-12-18] MEDS: LORazepam Inj 2mg/ml 1ml IV PRN (23:37)
[2019-12-18] MEDS: Valproic Acid 250mg/5ml Liquid NG SCH (23:37)
[2019-12-19 04:00] VITALS: BP 123/67
[2019-12-19] MEDS: LORazepam Inj 2mg/ml 1ml IV PRN (04:56)
[2019-12-19 07:53] VITALS: BP 146/81
[2019-12-19] MEDS: Valproic Acid 250mg/5ml Liquid NG SCH ×2 (08:50→21:15)
[2019-12-19] MEDS: Pantoprazole Inj IVP SCH ×2 (08:50→21:14)
[2019-12-19] MEDS: Aspirin Baby 81mg NG SCH (08:50)
[2019-12-19] MEDS: Ascorbic Acid 500mg tab NG SCH ×2 (08:52→17:37)
[2019-12-19] MEDS: Zinc Sulfate 220mg cap NG SCH (08:52)
[2019-12-19] MEDS ORDERED: Aspirin EC 81mg tab ORAL SCH ×2 (09:00)
[2019-12-19 09:20] LABS: BASOPHILS % (AUTO) 0.4 % (0.0-2.0); EOSINOPHILS % (AUTO) 0.4 % (0.0-3.0); HEMATOCRIT 37.7 % (37.0-47.0); HEMOGLOBIN 13.3 G/DL (12.0-16.0); MEAN CORPUSCULAR VOLUME 90 FL (80-99); MONOCYTES % (AUTO) 8.1 % (1.0-10.0); NEUTROPHILS % (AUTO) 72.2 % (45.0-75.0); PLATELET COUNT 211 K/UL (150-450); RED BLOOD COUNT 4.19 M/UL (4.20-5.40); RED CELL DISTRIBUTION WIDTH 11.7 % (11.6-14.8); WHITE BLOOD COUNT 8.9 K/UL (4.8-10.8)
--- NOTE | 2019-12-19 09:37 | Nephrology Progress Note ---
Assessment/Plan Problem List: (1) ROSARIO (acute kidney injury) (2) Dehydration (3) Electrolyte imbalance (4) NSTEMI (non-ST elevated myocardial infarction) Assessment Acute renal failure Severe dehydration Hypernatremia indicative of free water depletion Hypercalcemia likely due to dehydration Elevated hemoglobin likely secondary to hemoconcentration Elevated troponin Poor p.o. intake / failure to thrive Dementia Hypertension Exposure to COVID-19 Plan Covid19 test positive Today's lab results reviewed IV fluid adjusted Aspirin and Plavix 2D echocardiogram, results still pending Patient in ICU now discussed with RN Harris catheter N.p.o. except medication IV Protonix Nitropaste Avoid nephrotoxic's Monitor renal parameters Monitor hemoglobin hematocrit Avoid mind altering medication in view of severe lethargy Per orders Subjective ROS Limited/Unobtainable: No Constitutional: Reports: malaise Objective Objective Last 24 Hour Vital Signs Date Time Temp Pulse Resp B/P (MAP) Pulse Ox O2 Delivery O2 Flow Rate FiO2 12/19/19 08:00 84 12/19/19 08:00 1.0 12/19/19 08:00 Nasal Cannula 2.0 12/19/19 07:53 98.2 60 17 146/81 (102) 100 12/19/19 04:00 Nasal Cannula 2.0 12/19/19 04:00 99.5 92 18 123/67 (85) 100 12/19/19 04:00 87 12/19/19 04:00 1.0 12/19/19 00:00 2.0 12/19/19 00:00 Nasal Cannula 2.0 12/18/19 23:57 91 12/18/19 23:54 98.2 70 16 144/82 (102) 100 12/18/19 20:00 2.0 12/18/19 20:00 84 12/18/19 20:00 Nasal Cannula 2.0 12/18/19 20:00 98.8 60 18 160/76 (104) 100 12/18/19 17:00 76 17 129/60 (83) 100 12/18/19 16:00 2.0 12/18/19 16:00 73 12/18/19 16:00 98.7 70 15 119/56 (77) 100 12/18/19 16:00 Nasal Cannula 2.0 12/18/19 15:00 72 14 127/60 (82) 100 4/18/20 14:00 73 13 130/61 (84) 100 12/18/19 13:09 114/62 12/18/19 13:00 64 15 106/57 (73) 100 12/18/19 12:00 69 16 114/62 (79) 100 12/18/19 12:00 2.0 12/18/19 12:00 65 12/18/19 12:00 Nasal Cannula 2.0 12/18/19 11:00 67 16 114/52 (72) 100 12/18/19 10:00 67 14 120/56 (77) 100 Intake and Output 12/18/19 12/19/19 19:00 07:00 Intake Total 1032.77444 ml 1010 ml Output Total 735 ml Balance 297.51464 ml 1010 ml Intake Free Water 300 ml IV Total 882.55992 ml 550 ml Tube Feeding 100 ml 160 ml Other 50 ml Output Urine Total 735 ml # Bowel Movements 2 2 Laboratory Tests 12/18/19 14:00: Activated Partial Thromboplast Time 87H 12/19/19 08:30: White Blood Count 8.9, Red Blood Count 4.19L, Hemoglobin 13.3, Hematocrit 37.7, Mean Corpuscular Volume 90, Mean Corpuscular Hemoglobin 31.7H, Mean Corpuscular Hemoglobin Concent 35.3, Red Cell Distribution Width 11.7, Platelet Count 211, Mean Platelet Volume 9.7, Neutrophils (%) (Auto) 72.2, Lymphocytes (%) (Auto) 19.0L, Monocytes (%) (Auto) 8.1, Eosinophils (%) (Auto) 0.4, Basophils (%) (Auto ) 0.4, D-Dimer [Pending], Sodium Level [Pending], Potassium Level [Pending], Chloride Level [Pending], Carbon Dioxide Level [Pending], Blood Urea Nitrogen [ Pending], Creatinine [Pending], Estimat Glomerular Filtration Rate [Pending], Glucose Level [Pending], Uric Acid [Pending], Calcium Level [Pending], Phosphorus Level [Pending], Magnesium Level [Pending], Ferritin [Pending], Total Bilirubin [Pending], Aspartate Amino Transf (AST/SGOT) [Pending], Alanine Aminotransferase (ALT/SGPT) [Pending], Alkaline Phosphatase [Pending], Lactate Dehydrogenase [Pending], Troponin I [Pending], C-Reactive Protein, Quantitative [Pending], Pro-B-Type Natriuretic Peptide [Pending], Total Protein [Pending], Albumin [Pending], Globulin [Pending] Height (Feet): 5 Height (Inches): 0.00 Weight (Pounds): 150 General Appearance: no apparent distress Cardiovascular: other - Variable rate Respiratory/Chest: decreased breath sounds Abdomen: soft Objective No change Robert Foreman MD Dec 19, 2019 09:37
[2019-12-19 09:51] LABS: PHOSPHORUS 3.2 MG/DL (2.5-4.9)
[2019-12-19 09:55] LABS: ALANINE AMINOTRANSFERASE 47 U/L (12-78); ALBUMIN 2.2 G/DL (3.4-5.0); ALBUMIN/GLOBULIN RATIO 0.5 (1.0-2.7); ALKALINE PHOSPHATASE 153 U/L (46-116); ANION GAP 11 mmol/L (5-15); ASPARTATE AMINO TRANSFERASE 43 U/L (15-37); BILIRUBIN,TOTAL 0.4 MG/DL (0.2-1.0); BLOOD UREA NITROGEN 10 mg/dL (7-18); CALCIUM 8.3 MG/DL (8.5-10.1); CARBON DIOXIDE 23 MMOL/L (21-32); CHLORIDE 108 MMOL/L (98-107); FERRITIN 569 NG/ML (8-388); POTASSIUM 3.3 MMOL/L (3.5-5.1); SODIUM 142 MMOL/L (136-145)
--- NOTE | 2019-12-19 11:36 | Pulmonology Progress Note ---
Assessment/Plan Problems: (1) COVID-19 virus infection (2) Viral pneumonia (3) Electrolyte imbalance (4) NSTEMI (non-ST elevated myocardial infarction) (5) Encephalopathy (6) Dehydration (7) ROSARIO (acute kidney injury) Assessment/Plan Problem List: Covid-19 positive Acute hypoxemic respiratory failure Acute renal failure - RESOLVED Severe dehydration - IMPROVED Hypernatremia indicative of free water depletion Hypercalcemia likely due to dehydration Elevated hemoglobin likely secondary to hemoconcentration Elevated troponin/NSTEMI Poor p.o. intake / failure to thrive Dementia Hypertension Exposure to COVID-19 Generalized anxiety disorder Plan: * COVID-19 isolation status * Monitor oxygenation closely, only on 1-2L nasal cannula * CXR prn worsening symptoms * Plaquenil per ID, monitor qTC * IVF per renal * Monitor electrolytes * Off heparin gtt per cards, will start Hep SQ * NPO, NGTF's * Cont depakote 500 mg bid from SNF * DVT ppx: heparin SQ * Full Code per prior documented ECP notes Prophylaxis: Heparin SQ Disposition: keep in PCU, downgrade tommorow if stable Time Spent (Minutes): 40 Notes Reviewed: cardio, renal, ID Discussed with: nurses, consultants Subjective Allergies: Coded Allergies: MEMANTINE (Unverified Allergy, Unknown, 12/15/19) SERTRALINE (Unverified Allergy, Unknown, 12/15/19) Subjective TTF Tm 99.8 on 1-2 L VSS Kody NGTF's some cough + SOB no FC Objective Last 24 Hour Vital Signs Date Time Temp Pulse Resp B/P (MAP) Pulse Ox O2 Delivery O2 Flow Rate FiO2 12/19/19 08:00 84 12/19/19 08:00 1.0 12/19/19 08:00 Nasal Cannula 2.0 12/19/19 07:53 98.2 60 17 146/81 (102) 100 12/19/19 04:00 Nasal Cannula 2.0 12/19/19 04:00 99.5 92 18 123/67 (85) 100 12/19/19 04:00 87 12/19/19 04:00 1.0 12/19/19 00:00 2.0 12/19/19 00:00 Nasal Cannula 2.0 12/18/19 23:57 91 12/18/19 23:54 98.2 70 16 144/82 (102) 100 12/18/19 20:00 2.0 12/18/19 20:00 84 12/18/19 20:00 Nasal Cannula 2.0 12/18/19 20:00 98.8 60 18 160/76 (104) 100 12/18/19 17:00 76 17 129/60 (83) 100 12/18/19 16:00 2.0 12/18/19 16:00 73 12/18/19 16:00 98.7 70 15 119/56 (77) 100 12/18/19 16:00 Nasal Cannula 2.0 12/18/19 15:00 72 14 127/60 (82) 100 12/18/19 14:00 73 13 130/61 (84) 100 12/18/19 13:09 114/62 12/18/19 13:00 64 15 106/57 (73) 100 12/18/19 12:00 69 16 114/62 (79) 100 12/18/19 12:00 2.0 12/18/19 12:00 65 12/18/19 12:00 Nasal Cannula 2.0 Intake and Output 12/18/19 12/19/19 19:00 07:00 Intake Total 1032.53396 ml 1010 ml Output Total 735 ml Balance 297.17034 ml 1010 ml Intake Free Water 300 ml IV Total 882.27585 ml 550 ml Tube Feeding 100 ml 160 ml Other 50 ml Output Urine Total 735 ml # Bowel Movements 2 2 General Appearance: no acute distress, cachetic HEENT: normocephalic, atraumatic, anicteric, other - NGT Respiratory/Chest: rhonchi Cardiovascular: normal peripheral pulses, normal rate, regular rhythm Abdomen: normal bowel sounds, soft, non tender, no organomegaly, non distended , no mass Extremities: no cyanosis, no clubbing, no edema Microbiology Date/Time Source Procedure Growth Status 12/17/19 21:20 Blood Blood Culture - Preliminary Resulted 12/17/19 21:15 Blood Blood Culture - Preliminary Resulted Laboratory Tests 12/18/19 14:00: Activated Partial Thromboplast Time 87H 12/19/19 08:30: White Blood Count 8.9, Red Blood Count 4.19L, Hemoglobin 13.3, Hematocrit 37.7, Mean Corpuscular Volume 90, Mean Corpuscular Hemoglobin 31.7H, Mean Corpuscular Hemoglobin Concent 35.3, Red Cell Distribution Width 11.7, Platelet Count 211, Mean Platelet Volume 9.7, Neutrophils (%) (Auto) 72.2, Lymphocytes (%) (Auto) 19.0L, Monocytes (%) (Auto) 8.1, Eosinophils (%) (Auto) 0.4, Basophils (%) (Auto ) 0.4, D-Dimer 0.93H, Sodium Level 142, Potassium Level 3.3L, Chloride Level 108H, Carbon Dioxide Level 23, Anion Gap 11, Blood Urea Nitrogen 10, Creatinine 1.0, Estimat Glomerular Filtration Rate > 60, Glucose Level 131H, Uric Acid 7.1 , Calcium Level 8.3L, Phosphorus Level 3.2, Magnesium Level 1.7L, Ferritin 569H , Total Bilirubin 0.4, Aspartate Amino Transf (AST/SGOT) 43H, Alanine Aminotransferase (ALT/SGPT) 47, Alkaline Phosphatase 153H, Lactate Dehydrogenase 315H, Troponin I 2.082H, C-Reactive Protein, Quantitative 14.6H, Pro-B-Type Natriuretic Peptide 1267H, Total Protein 6.9, Albumin 2.2L, Globulin 4.7, Albumin/Globulin Ratio 0.5L Current Medications Medications (Trade) Dose Ordered Sig/Ovi Route PRN Reason Start Time Stop Time Status Last Admin Dose Admin Ascorbic Acid (Vitamin C) 1,000 mg BID NG 12/18/19 18:00 12/21/19 18:01 12/19/19 08:52 Aspirin (ASA) 81 mg DAILY NG 12/19/19 09:00 02/02/20 08:59 12/19/19 08:50 Dextrose 1,000 ml @ 50 mls/hr Q20H IV 12/18/19 18:00 01/17/20 15:57 12/18/19 18:39 Hydroxychloroquine Sulfate (Plaquenil) 200 mg BID ORAL 12/18/19 18:00 12/21/19 18:01 12/19/19 08:51 Lorazepam (Ativan 2mg/ml 1ml) 0.5 mg Q4H PRN IV For Anxiety 12/18/19 18:00 12/22/19 17:59 12/19/19 04:56 Nitroglycerin (Ntg) 1 patch Q24H TDERMAL 12/19/19 14:00 01/14/20 13:59 Pantoprazole (Protonix) 40 mg Q12HR IVP 12/18/19 21:00 01/14/20 20:59 12/19/19 08:50 Potassium Chloride (K-Dur) 20 meq TWICE A DAY ORAL 12/18/19 18:00 03/15/20 17:59 12/19/19 08:57 Valproic Acid (Depakene) 500 mg EVERY 12 HOURS NG 12/18/19 23:15 01/17/20 23:14 12/19/19 08:50 Zinc Sulfate (Zinc Sulfate) 220 mg DAILY NG 12/19/19 09:00 12/22/19 09:01 12/19/19 08:52 Boby Toledo MD Dec 19, 2019 11:36
[2019-12-19 12:00] VITALS: BP 130/66
[2019-12-19] MEDS: Nitroglycerin Patch 0.4mg TDERMAL SCH (13:11)
[2019-12-19] MEDS ORDERED: Vancomycin 1 GM in NS 275 ML IVPB SCH (13:30)
[2019-12-19] MEDS ORDERED: NS 275ml ONE (13:57)
[2019-12-19 15:47] VITALS: BP 111/63
[2019-12-19 20:00] VITALS: BP 114/74
--- NOTE | 2019-12-19 20:09 | Infectious Diseases Prog Note ---
Assessment/Plan Problems: (1) Sepsis Assessment & Plan: with gram positive cocci in clusters , source? will start vancomycin pending identification and sensitivity (2) COVID-19 virus infection Assessment & Plan: keep in enhanced droplet isolation, continue hydroxychloroquin with zinc and vitamin C for five days total, monitor EKG for QT prolongation (3) Viral pneumonia Assessment & Plan: due to COVID 19, continue hydroxychloroquine , with zinc and vitamin C for five days, monitor CXR (4) ROSARIO (acute kidney injury) Assessment & Plan: suspect due to dehydration and poor oral intake improving monitor renal function avoid nephrotoxic's (5) Dehydration Assessment & Plan: continue IV fluid for hydration with close monitoring of sodium level (6) NSTEMI (non-ST elevated myocardial infarction) Assessment & Plan: could be due to COVID 19, cardiology is following monitor troponin level Subjective ROS Limited/Unobtainable: Yes Allergies: Coded Allergies: MEMANTINE (Unverified Allergy, Unknown, 12/15/19) SERTRALINE (Unverified Allergy, Unknown, 12/15/19) Subjective no fever today, no SOB, confused , receiving meds though NGT , no agitation Objective Vital Signs Last 24 Hour Vital Signs Date Time Temp Pulse Resp B/P (MAP) Pulse Ox O2 Delivery O2 Flow Rate FiO2 12/19/19 16:00 Nasal Cannula 2.0 12/19/19 16:00 72 12/19/19 16:00 1.0 12/19/19 15:47 98.1 16 111/63 (79) 100 12/19/19 13:11 130/66 12/19/19 12:00 Nasal Cannula 2.0 12/19/19 12:00 97.9 75 17 130/66 (87) 98 12/19/19 12:00 74 12/19/19 12:00 1.0 12/19/19 08:00 84 12/19/19 08:00 1.0 12/19/19 08:00 Nasal Cannula 2.0 12/19/19 07:53 98.2 60 17 146/81 (102) 100 12/19/19 04:00 Nasal Cannula 2.0 12/19/19 04:00 99.5 92 18 123/67 (85) 100 12/19/19 04:00 87 12/19/19 04:00 1.0 12/19/19 00:00 2.0 12/19/19 00:00 Nasal Cannula 2.0 12/18/19 23:57 91 12/18/19 23:54 98.2 70 16 144/82 (102) 100 Height (Feet): 5 Height (Inches): 0.00 Weight (Pounds): 150 General Appearance: WD/WN, no acute distress HEENT: normocephalic, atraumatic, anicteric, mucous membranes moist, PERRL Respiratory/Chest: chest wall non-tender, lungs clear, normal breath sounds, no respiratory distress, no accessory muscle use Cardiovascular: normal peripheral pulses, normal rate, regular rhythm, no gallop/murmur, no JVD Abdomen: normal bowel sounds, soft, non tender, no organomegaly, non distended , no mass, no scars Genitourinary: normal external genitalia Extremities: no cyanosis, no clubbing Skin: no rash, no lesions Lymphatic: no neck adenopathy, no groin adenopathy Musculoskeletal: normal muscle bulk, no effusion Microbiology Date/Time Source Procedure Growth Status 12/17/19 21:20 Blood Blood Culture - Preliminary Resulted 12/17/19 21:15 Blood Blood Culture - Preliminary Resulted Laboratory Tests Test 12/19/19 08:30 White Blood Count 8.9 K/UL (4.8-10.8) Red Blood Count 4.19 M/UL (4.20-5.40) L Hemoglobin 13.3 G/DL (12.0-16.0) Hematocrit 37.7 % (37.0-47.0) Mean Corpuscular Volume 90 FL (80-99) Mean Corpuscular Hemoglobin 31.7 PG (27.0-31.0) H Mean Corpuscular Hemoglobin Concent 35.3 G/DL (32.0-36.0) Red Cell Distribution Width 11.7 % (11.6-14.8) Platelet Count 211 K/UL (150-450) Mean Platelet Volume 9.7 FL (6.5-10.1) Neutrophils (%) (Auto) 72.2 % (45.0-75.0) Lymphocytes (%) (Auto) 19.0 % (20.0-45.0) L Monocytes (%) (Auto) 8.1 % (1.0-10.0) Eosinophils (%) (Auto) 0.4 % (0.0-3.0) Basophils (%) (Auto) 0.4 % (0.0-2.0) D-Dimer 0.93 mg/L FEU (0.00-0.49) H Sodium Level 142 MMOL/L (136-145) Potassium Level 3.3 MMOL/L (3.5-5.1) L Chloride Level 108 MMOL/L (98-107) H Carbon Dioxide Level 23 MMOL/L (21-32) Anion Gap 11 mmol/L (5-15) Blood Urea Nitrogen 10 mg/dL (7-18) Creatinine 1.0 MG/DL (0.55-1.30) Estimat Glomerular Filtration Rate > 60 mL/min (>60) Glucose Level 131 MG/DL (74-106) H Uric Acid 7.1 MG/DL (2.6-7.2) Calcium Level 8.3 MG/DL (8.5-10.1) L Phosphorus Level 3.2 MG/DL (2.5-4.9) Magnesium Level 1.7 MG/DL (1.8-2.4) L Ferritin 569 NG/ML (8-388) H Total Bilirubin 0.4 MG/DL (0.2-1.0) Aspartate Amino Transf (AST/SGOT) 43 U/L (15-37) H Alanine Aminotransferase (ALT/SGPT) 47 U/L (12-78) Alkaline Phosphatase 153 U/L (46-116) H Lactate Dehydrogenase 315 U/L (81-234) H Troponin I 2.082 ng/mL (0.000-0.056) C-Reactive Protein, Quantitative 14.6 mg/dL (0.00-0.90) H Pro-B-Type Natriuretic Peptide 1267 pg/mL (0-125) H Total Protein 6.9 G/DL (6.4-8.2) Albumin 2.2 G/DL (3.4-5.0) L Globulin 4.7 g/dL Albumin/Globulin Ratio 0.5 (1.0-2.7) L Current Medications Medications (Trade) Dose Ordered Sig/Ovi Route PRN Reason Start Time Stop Time Status Last Admin Dose Admin Ascorbic Acid (Vitamin C) 1,000 mg BID NG 12/18/19 18:00 12/21/19 18:01 12/19/19 17:37 Aspirin (ASA) 81 mg DAILY NG 12/19/19 09:00 02/02/20 08:59 12/19/19 08:50 Atorvastatin Calcium (Lipitor) 20 mg BEDTIME ORAL 12/19/19 21:00 03/18/20 20:59 Heparin Sodium (Porcine) (Heparin 5000 units/ml) 5,000 units EVERY 12 HOURS SUBQ 12/19/19 21:00 02/02/20 20:59 Hydroxychloroquine Sulfate (Plaquenil) 200 mg BID ORAL 12/18/19 18:00 12/21/19 18:01 12/19/19 17:37 Lorazepam (Ativan 2mg/ml 1ml) 0.5 mg Q4H PRN IV For Anxiety 12/18/19 18:00 12/22/19 17:59 12/19/19 04:56 Nitroglycerin (Ntg) 1 patch Q24H TDERMAL 12/19/19 14:00 01/14/20 13:59 12/19/19 13:11 Pantoprazole (Protonix) 40 mg Q12HR IVP 12/18/19 21:00 01/14/20 20:59 12/19/19 08:50 Potassium Chloride (K-Dur) 20 meq TWICE A DAY ORAL 12/18/19 18:00 03/15/20 17:59 12/19/19 17:37 Valproic Acid (Depakene) 500 mg EVERY 12 HOURS NG 12/18/19 23:15 01/17/20 23:14 12/19/19 08:50 Vancomycin HCl (Vanco rx to dose) 1 ea DAILY PRN MISC Per rx protocol 12/19/19 12:00 01/18/20 11:59 Vancomycin HCl 750 mg/Sodium Chloride 275 ml @ 183.708 mls/hr Q24H IVPB 12/20/19 13:00 12/25/19 12:59 Zinc Sulfate (Zinc Sulfate) 220 mg DAILY NG 12/19/19 09:00 12/22/19 09:01 12/19/19 08:52 Sukhjinder Howell M.D. Dec 19, 2019 20:09
[2019-12-19] MEDS: Heparin 5000 units/ml inj SUBQ SCH (21:11)
[2019-12-19] MEDS: Atorvastatin 20mg tab ORAL SCH (21:15)
[2019-12-20] VITALS: BP 127/78
[2019-12-20 04:00] VITALS: BP 144/82
[2019-12-20 08:00] VITALS: BP 139/85
[2019-12-20] MEDS: Pantoprazole Inj IVP SCH ×2 (10:04→21:11)
[2019-12-20] MEDS: Valproic Acid 250mg/5ml Liquid NG SCH ×2 (10:04→21:08)
[2019-12-20] MEDS: Ascorbic Acid 500mg tab NG SCH ×2 (10:04→17:36)
[2019-12-20] MEDS: Zinc Sulfate 220mg cap NG SCH (10:05)
[2019-12-20] MEDS: Aspirin Baby 81mg NG SCH (10:05)
[2019-12-20] MEDS: Heparin 5000 units/ml inj SUBQ SCH ×2 (10:07→21:07)
--- NOTE | 2019-12-20 10:47 | Nephrology Progress Note ---
Assessment/Plan Problem List: (1) ROSARIO (acute kidney injury) (2) Dehydration (3) Electrolyte imbalance (4) NSTEMI (non-ST elevated myocardial infarction) Assessment Acute renal failure Severe dehydration Hypernatremia indicative of free water depletion Hypercalcemia likely due to dehydration Elevated hemoglobin likely secondary to hemoconcentration Elevated troponin Poor p.o. intake / failure to thrive Dementia Hypertension Exposure to COVID-19 Plan Covid19 test positive Today's lab results reviewed IV fluid adjusted Aspirin and Plavix 2D echocardiogram, results still pending Patient in ICU now discussed with RN Harris catheter N.p.o. except medication IV Protonix Nitropaste Avoid nephrotoxic's Monitor renal parameters Monitor hemoglobin hematocrit Avoid mind altering medication in view of severe lethargy Per orders Subjective ROS Limited/Unobtainable: No Constitutional: Reports: malaise, weakness Objective Objective Last 24 Hour Vital Signs Date Time Temp Pulse Resp B/P (MAP) Pulse Ox O2 Delivery O2 Flow Rate FiO2 12/20/19 08:00 1.0 12/20/19 07:39 71 12/20/19 04:00 97.2 74 16 144/82 (102) 99 12/20/19 04:00 72 12/20/19 04:00 Nasal Cannula 2.0 12/20/19 04:00 1.0 12/20/19 00:00 79 12/20/19 00:00 98.0 79 20 127/78 (94) 100 12/20/19 00:00 Nasal Cannula 2.0 12/19/19 20:00 98.2 84 18 114/74 (87) 100 12/19/19 20:00 Nasal Cannula 2.0 12/19/19 20:00 1.0 12/19/19 19:02 72 12/19/19 16:00 Nasal Cannula 2.0 12/19/19 16:00 72 12/19/19 16:00 1.0 12/19/19 15:47 98.1 16 111/63 (79) 100 12/19/19 13:11 130/66 12/19/19 12:00 Nasal Cannula 2.0 12/19/19 12:00 97.9 75 17 130/66 (87) 98 12/19/19 12:00 74 12/19/19 12:00 1.0 Intake and Output 12/19/19 12/20/19 18:59 06:59 Intake Total 570 ml Output Total 1200 ml Balance -630 ml Intake Free Water 350 ml Tube Feeding 220 ml Output Urine Total 1200 ml # Bowel Movements 1 1 Laboratory Tests 12/20/19 02:55: Magnesium Level 2.4, Ferritin 534H, C-Reactive Protein, Quantitative 15.2H, Pro- B-Type Natriuretic Peptide 933H Height (Feet): 5 Height (Inches): 0.00 Weight (Pounds): 159 General Appearance: no apparent distress Objective No change Robert Foreman MD Dec 20, 2019 10:47
[2019-12-20 12:00] VITALS: BP 122/72
[2019-12-20] MEDS: Nitroglycerin Patch 0.4mg TDERMAL SCH (14:19)
[2019-12-20] MEDS: Vancomycin 750 MG in NS 275 ML IVPB SCH (14:20)
[2019-12-20 16:00] VITALS: BP 110/73
--- NOTE | 2019-12-20 16:42 | Pulmonology Progress Note ---
Assessment/Plan Problems: (1) COVID-19 virus infection (2) Viral pneumonia (3) Electrolyte imbalance (4) NSTEMI (non-ST elevated myocardial infarction) (5) Encephalopathy (6) Dehydration (7) ROSARIO (acute kidney injury) Assessment/Plan Problem List: Covid-19 positive Acute hypoxemic respiratory failure GPC BSI Acute renal failure - RESOLVED Severe dehydration - IMPROVED Hypernatremia indicative of free water depletion Hypercalcemia likely due to dehydration Elevated hemoglobin likely secondary to hemoconcentration Elevated troponin/NSTEMI Poor p.o. intake / failure to thrive Dementia Hypertension Exposure to COVID-19 Generalized anxiety disorder Plan: * COVID-19 isolation status * Monitor oxygenation closely, only on 1-2L nasal cannula * CXR prn worsening symptoms * Vanco per ID, F/U Cx's * Plaquenil per ID, monitor qTC * IVF per renal * Monitor electrolytes * TTE when off isolation * NPO, NGTF's * Cont depakote 500 mg bid from SNF * DVT ppx: heparin SQ * Full Code per prior documented ECP notes - will D/W family Prophylaxis: Heparin SQ Disposition: keep in PCU, downgrade tommorow if stable Time Spent (Minutes): 35 Notes Reviewed: cardio, renal, ID Discussed with: nurses, consultants Subjective Allergies: Coded Allergies: MEMANTINE (Unverified Allergy, Unknown, 12/15/19) SERTRALINE (Unverified Allergy, Unknown, 12/15/19) Subjective AFVSS on 2L confused GPC in blood Kody NGTF's some cough + SOB no FC Objective Last 24 Hour Vital Signs Date Time Temp Pulse Resp B/P (MAP) Pulse Ox O2 Delivery O2 Flow Rate FiO2 12/20/19 16:00 2.0 12/20/19 16:00 Nasal Cannula 2.0 12/20/19 14:19 122/72 12/20/19 12:00 Nasal Cannula 2.0 12/20/19 12:00 2.0 12/20/19 12:00 97.5 69 18 122/72 (89) 100 12/20/19 11:46 67 12/20/19 09:00 Nasal Cannula 2.0 12/20/19 08:00 1.0 12/20/19 08:00 98.2 66 18 139/85 (103) 100 12/20/19 07:39 71 12/20/19 04:00 97.2 74 16 144/82 (102) 99 12/20/19 04:00 72 12/20/19 04:00 Nasal Cannula 2.0 12/20/19 04:00 1.0 12/20/19 00:00 79 12/20/19 00:00 98.0 79 20 127/78 (94) 100 12/20/19 00:00 Nasal Cannula 2.0 12/19/19 20:00 98.2 84 18 114/74 (87) 100 12/19/19 20:00 Nasal Cannula 2.0 12/19/19 20:00 1.0 12/19/19 19:02 72 Intake and Output 12/19/19 12/20/19 19:00 07:00 Intake Total 550 ml Output Total 1200 ml Balance -650 ml Intake Free Water 350 ml Tube Feeding 200 ml Output Urine Total 1200 ml # Bowel Movements 1 1 General Appearance: no acute distress, cachetic HEENT: normocephalic, atraumatic, anicteric, mucous membranes moist Respiratory/Chest: rhonchi Cardiovascular: normal peripheral pulses, normal rate, regular rhythm Abdomen: normal bowel sounds, soft, non tender, no organomegaly, non distended , no mass Extremities: no cyanosis, no clubbing, no edema Microbiology Date/Time Source Procedure Growth Status 12/17/19 21:20 Blood Blood Culture - Preliminary Gram Positive Cocci Resulted 12/17/19 21:15 Blood Blood Culture - Preliminary Gram Positive Cocci Resulted Laboratory Tests 12/20/19 02:55: Magnesium Level 2.4, Ferritin 534H, C-Reactive Protein, Quantitative 15.2H, Pro- B-Type Natriuretic Peptide 933H Current Medications Medications (Trade) Dose Ordered Sig/Ovi Route PRN Reason Start Time Stop Time Status Last Admin Dose Admin Ascorbic Acid (Vitamin C) 1,000 mg BID NG 12/18/19 18:00 12/21/19 18:01 12/20/19 10:04 Aspirin (ASA) 81 mg DAILY NG 12/19/19 09:00 02/02/20 08:59 12/20/19 10:05 Atorvastatin Calcium (Lipitor) 20 mg BEDTIME ORAL 12/19/19 21:00 03/18/20 20:59 12/19/19 21:15 Heparin Sodium (Porcine) (Heparin 5000 units/ml) 5,000 units EVERY 12 HOURS SUBQ 12/19/19 21:00 02/02/20 20:59 12/20/19 10:07 Hydroxychloroquine Sulfate (Plaquenil) 200 mg BID ORAL 12/18/19 18:00 12/21/19 18:01 12/20/19 10:04 Lorazepam (Ativan 2mg/ml 1ml) 0.5 mg Q4H PRN IV For Anxiety 12/18/19 18:00 12/22/19 17:59 12/19/19 04:56 Nitroglycerin (Ntg) 1 patch Q24H TDERMAL 12/19/19 14:00 01/14/20 13:59 12/20/19 14:19 Pantoprazole (Protonix) 40 mg Q12HR IVP 12/18/19 21:00 01/14/20 20:59 12/20/19 10:04 Potassium Chloride (K-Dur) 20 meq TWICE A DAY ORAL 12/18/19 18:00 03/15/20 17:59 12/20/19 10:08 Valproic Acid (Depakene) 500 mg EVERY 12 HOURS NG 12/18/19 23:15 01/17/20 23:14 12/20/19 10:04 Vancomycin HCl (Vanco rx to dose) 1 ea DAILY PRN MISC Per rx protocol 12/19/19 12:00 01/18/20 11:59 Vancomycin HCl 750 mg/Sodium Chloride 275 ml @ 183.708 mls/hr Q24H IVPB 12/20/19 13:00 12/25/19 12:59 12/20/19 14:20 Zinc Sulfate (Zinc Sulfate) 220 mg DAILY NG 12/19/19 09:00 12/22/19 09:01 12/20/19 10:05 Boby Toledo MD Dec 20, 2019 16:42
--- NOTE | 2019-12-20 18:38 | Cardiology Progress Note ---
Assessment/Plan Assessment/Plan 1. Xkc-YU-[id number] myocardial infarction, possibly related to demand. 2. Acute renal failure in the setting of volume depletion. 3. Hypernatremia secondary to volume depletion. 4. 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 5. Dementia. 6. Lactic acidosis. 7. History of bradycardia secondary to medications. 8. bacteremia trop trending down still no fever covid status postitive off hepearin iv on sq herparin echo not performed as covid + on sdu now ekg reviewed qt interval seems fine on hydroxychlorquine tele sinus not need restraint at this time per rn sats are fine on ecotrin start statin on feeding on iv vanco await id input Subjective ROS Limited/Unobtainable: Yes Subjective per rn no cough no fever no vomit confused, screams when wakes up no diarrhea Objective Last 24 Hour Vital Signs Date Time Temp Pulse Resp B/P (MAP) Pulse Ox O2 Delivery O2 Flow Rate FiO2 12/20/19 16:00 2.0 12/20/19 16:00 Nasal Cannula 2.0 12/20/19 16:00 97.0 66 18 110/73 (85) 100 12/20/19 15:34 63 12/20/19 14:19 122/72 12/20/19 12:00 Nasal Cannula 2.0 12/20/19 12:00 2.0 12/20/19 12:00 97.5 69 18 122/72 (89) 100 12/20/19 11:46 67 12/20/19 09:00 Nasal Cannula 2.0 12/20/19 08:00 1.0 12/20/19 08:00 98.2 66 18 139/85 (103) 100 12/20/19 07:39 71 12/20/19 04:00 97.2 74 16 144/82 (102) 99 12/20/19 04:00 72 12/20/19 04:00 Nasal Cannula 2.0 12/20/19 04:00 1.0 12/20/19 00:00 79 12/20/19 00:00 98.0 79 20 127/78 (94) 100 12/20/19 00:00 Nasal Cannula 2.0 12/19/19 20:00 98.2 84 18 114/74 (87) 100 12/19/19 20:00 Nasal Cannula 2.0 12/19/19 20:00 1.0 12/19/19 19:02 72 General Appearance: no apparent distress, patient on isolation, isolation precautions Intake and Output 12/19/19 12/20/19 19:00 07:00 Intake Total 550 ml Output Total 1200 ml Balance -650 ml Intake Free Water 350 ml Tube Feeding 200 ml Output Urine Total 1200 ml # Bowel Movements 1 1 Laboratory Tests Test 12/20/19 02:55 Magnesium Level 2.4 MG/DL (1.8-2.4) Ferritin 534 NG/ML (8-388) H C-Reactive Protein, Quantitative 15.2 mg/dL (0.00-0.90) H Pro-B-Type Natriuretic Peptide 933 pg/mL (0-125) H Microbiology Date/Time Source Procedure Growth Status 12/17/19 21:20 Blood Blood Culture - Preliminary Gram Positive Cocci Resulted 12/17/19 21:15 Blood Blood Culture - Preliminary Gram Positive Cocci Resulted Kendell Rosen MD Dec 20, 2019 18:38
[2019-12-20 20:00] VITALS: BP 133/73
--- NOTE | 2019-12-20 21:05 | Infectious Diseases Prog Note ---
Assessment/Plan Problems: (1) Sepsis Assessment & Plan: with gram positive cocci in clusters , source ? continue vancomycin pending identification and sensitivity , repeat blood culture to confirm clearance in am (2) COVID-19 virus infection Assessment & Plan: keep in enhanced droplet isolation, continue hydroxychloroquin with zinc and vitamin C for five days total, monitor EKG for QT prolongation, cardiology is following (3) Viral pneumonia Assessment & Plan: due to COVID 19, continue hydroxychloroquine , with zinc and vitamin C for five days, monitor CXR (4) ROSARIO (acute kidney injury) Assessment & Plan: suspect due to dehydration and poor oral intake improving monitor renal function avoid nephrotoxic's (5) Dehydration Assessment & Plan: continue IV fluid for hydration with close monitoring of sodium level (6) NSTEMI (non-ST elevated myocardial infarction) Assessment & Plan: could be due to COVID 19, cardiology is following monitor troponin level Subjective ROS Limited/Unobtainable: Yes Allergies: Coded Allergies: MEMANTINE (Unverified Allergy, Unknown, 12/15/19) SERTRALINE (Unverified Allergy, Unknown, 12/15/19) Subjective she was transferred out of ICU to SDU, had no fever today, no SOB, confused , receiving meds though NGT , no agitation Objective Vital Signs Last 24 Hour Vital Signs Date Time Temp Pulse Resp B/P (MAP) Pulse Ox O2 Delivery O2 Flow Rate FiO2 12/20/19 16:00 2.0 12/20/19 16:00 Nasal Cannula 2.0 12/20/19 16:00 97.0 66 18 110/73 (85) 100 12/20/19 15:34 63 12/20/19 14:19 122/72 12/20/19 12:00 Nasal Cannula 2.0 12/20/19 12:00 2.0 12/20/19 12:00 97.5 69 18 122/72 (89) 100 12/20/19 11:46 67 12/20/19 09:00 Nasal Cannula 2.0 12/20/19 08:00 1.0 12/20/19 08:00 98.2 66 18 139/85 (103) 100 12/20/19 07:39 71 12/20/19 04:00 97.2 74 16 144/82 (102) 99 12/20/19 04:00 72 12/20/19 04:00 Nasal Cannula 2.0 12/20/19 04:00 1.0 12/20/19 00:00 79 12/20/19 00:00 98.0 79 20 127/78 (94) 100 12/20/19 00:00 Nasal Cannula 2.0 Height (Feet): 5 Height (Inches): 0.00 Weight (Pounds): 159 General Appearance: WD/WN, no acute distress HEENT: normocephalic, atraumatic, anicteric, mucous membranes moist, PERRL Respiratory/Chest: chest wall non-tender, lungs clear, normal breath sounds, no respiratory distress, no accessory muscle use Cardiovascular: normal peripheral pulses, normal rate, regular rhythm, no gallop/murmur, no JVD Abdomen: normal bowel sounds, soft, non tender, no organomegaly, non distended , no mass, no scars Genitourinary: normal external genitalia Extremities: no cyanosis, no clubbing Skin: no rash, no lesions 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: alert, unresponsiveness Lymphatic: no neck adenopathy, no groin adenopathy Musculoskeletal: normal muscle bulk, no effusion Microbiology Date/Time Source Procedure Growth Status 12/17/19 21:20 Blood Blood Culture - Preliminary Gram Positive Cocci Resulted 12/17/19 21:15 Blood Blood Culture - Preliminary Gram Positive Cocci Resulted Laboratory Tests Test 12/20/19 02:55 Magnesium Level 2.4 MG/DL (1.8-2.4) Ferritin 534 NG/ML (8-388) H C-Reactive Protein, Quantitative 15.2 mg/dL (0.00-0.90) H Pro-B-Type Natriuretic Peptide 933 pg/mL (0-125) H Current Medications Medications (Trade) Dose Ordered Sig/Ovi Route PRN Reason Start Time Stop Time Status Last Admin Dose Admin Ascorbic Acid (Vitamin C) 1,000 mg BID NG 12/18/19 18:00 12/21/19 18:01 12/20/19 17:36 Aspirin (ASA) 81 mg DAILY NG 12/19/19 09:00 02/02/20 08:59 12/20/19 10:05 Atorvastatin Calcium (Lipitor) 20 mg BEDTIME ORAL 12/19/19 21:00 03/18/20 20:59 12/19/19 21:15 Heparin Sodium (Porcine) (Heparin 5000 units/ml) 5,000 units EVERY 12 HOURS SUBQ 12/19/19 21:00 02/02/20 20:59 12/20/19 10:07 Hydroxychloroquine Sulfate (Plaquenil) 200 mg BID ORAL 12/18/19 18:00 12/21/19 18:01 12/20/19 17:36 Lorazepam (Ativan 2mg/ml 1ml) 0.5 mg Q4H PRN IV For Anxiety 12/18/19 18:00 12/22/19 17:59 12/19/19 04:56 Nitroglycerin (Ntg) 1 patch Q24H TDERMAL 12/19/19 14:00 01/14/20 13:59 12/20/19 14:19 Pantoprazole (Protonix) 40 mg Q12HR IVP 12/18/19 21:00 01/14/20 20:59 12/20/19 10:04 Potassium Chloride (K-Dur) 20 meq TWICE A DAY ORAL 12/18/19 18:00 03/15/20 17:59 12/20/19 17:36 Valproic Acid (Depakene) 500 mg EVERY 12 HOURS NG 12/18/19 23:15 01/17/20 23:14 12/20/19 10:04 Vancomycin HCl (Vanco rx to dose) 1 ea DAILY PRN MISC Per rx protocol 12/19/19 12:00 01/18/20 11:59 Vancomycin HCl 750 mg/Sodium Chloride 275 ml @ 183.708 mls/hr Q24H IVPB 12/20/19 13:00 12/25/19 12:59 12/20/19 14:20 Zinc Sulfate (Zinc Sulfate) 220 mg DAILY NG 12/19/19 09:00 12/22/19 09:01 12/20/19 10:05 Sukhjinder Howell M.D. Dec 20, 2019 21:05
[2019-12-20] MEDS: Atorvastatin 20mg tab ORAL SCH (21:08)
[2019-12-20] MEDS: LORazepam Inj 2mg/ml 1ml IV PRN (21:34)
[2019-12-21] VITALS (7 sets, daily range): BP systolic 121–141; BP diastolic 59–72
--- NOTE | 2019-12-21 00:51 | Diagnostic Imaging Report ---
EXAM: XR Abdomen, 2 Views CLINICAL HISTORY: NGT TECHNIQUE: Frontal view of the abdomen/pelvis with upright view of the abdomen. COMPARISON: 12/17/2019 IMPRESSION: NG tube terminates in the mid stomach.
[2019-12-21 05:31] LABS: BASOPHILS % (AUTO) 0.3 % (0.0-2.0); HEMATOCRIT 33.9 % (37.0-47.0); HEMOGLOBIN 12.1 G/DL (12.0-16.0); LYMPHOCYTES % (AUTO) 20.9 % (20.0-45.0); MEAN CORPUSCULAR VOLUME 90 FL (80-99); NEUTROPHILS % (AUTO) 67.7 % (45.0-75.0); PLATELET COUNT 201 K/UL (150-450); RED BLOOD COUNT 3.75 M/UL (4.20-5.40); RED CELL DISTRIBUTION WIDTH 11.8 % (11.6-14.8); WHITE BLOOD COUNT 9.6 K/UL (4.8-10.8)
[2019-12-21 06:10] LABS: PHOSPHORUS 3.6 MG/DL (2.5-4.9)
[2019-12-21 06:15] LABS: ALANINE AMINOTRANSFERASE 34 U/L (12-78); ALBUMIN 1.9 G/DL (3.4-5.0); ALBUMIN/GLOBULIN RATIO 0.4 (1.0-2.7); ALKALINE PHOSPHATASE 151 U/L (46-116); ANION GAP 10 mmol/L (5-15); ASPARTATE AMINO TRANSFERASE 28 U/L (15-37); BILIRUBIN,TOTAL 0.3 MG/DL (0.2-1.0); BLOOD UREA NITROGEN 14 mg/dL (7-18); CALCIUM 8.8 MG/DL (8.5-10.1); CARBON DIOXIDE 26 MMOL/L (21-32); CHLORIDE 107 MMOL/L (98-107); CREATININE 0.9 MG/DL (0.55-1.30); FERRITIN 453 NG/ML (8-388); POTASSIUM 3.5 MMOL/L (3.5-5.1); SODIUM 143 MMOL/L (136-145)
[2019-12-21] MEDS: Aspirin Baby 81mg NG SCH (09:48)
[2019-12-21] MEDS: Zinc Sulfate 220mg cap NG SCH (09:48)
[2019-12-21] MEDS: Valproic Acid 250mg/5ml Liquid NG SCH ×2 (09:49→21:32)
[2019-12-21] MEDS: Ascorbic Acid 500mg tab NG SCH ×2 (09:50→19:18)
[2019-12-21] MEDS: Pantoprazole Inj IVP SCH ×2 (09:50→21:32)
[2019-12-21] MEDS: Heparin 5000 units/ml inj SUBQ SCH ×2 (09:55→21:33)
--- NOTE | 2019-12-21 12:20 | Pulmonology Progress Note ---
Assessment/Plan Problems: (1) COVID-19 virus infection (2) Viral pneumonia (3) Electrolyte imbalance (4) NSTEMI (non-ST elevated myocardial infarction) (5) Encephalopathy (6) Dehydration (7) ROSARIO (acute kidney injury) (8) Staphylococcus epidermidis bacteremia Assessment/Plan Problem List: Covid-19 positive Acute hypoxemic respiratory failure S epidermis BSI Acute renal failure - RESOLVED Severe dehydration - IMPROVED Hypernatremia indicative of free water depletion Hypercalcemia likely due to dehydration Elevated hemoglobin likely secondary to hemoconcentration Elevated troponin/NSTEMI Poor p.o. intake / failure to thrive Dementia Hypertension Exposure to COVID-19 Generalized anxiety disorder Plan: * COVID-19 isolation status * Monitor oxygenation closely, only on 1-2L nasal cannula * CXR prn worsening symptoms * Vanco per ID, F/U Cx's * Plaquenil per ID, monitor qTC * IVF per renal * Monitor electrolytes * TTE when off isolation * NPO, NGTF's, [employer] eval * Cont depakote 500 mg bid from SNF * DVT ppx: heparin SQ * Full Code per prior documented ECP notes - will D/W family Prophylaxis: Heparin SQ Disposition: downgrade to tele Time Spent (Minutes): 35 Notes Reviewed: cardio, renal, ID Discussed with: nurses, consultants Subjective Allergies: Coded Allergies: MEMANTINE (Unverified Allergy, Unknown, 12/15/19) SERTRALINE (Unverified Allergy, Unknown, 12/15/19) Subjective AFVSS on 2L confused S epidermis in blood Kody NGTF's some cough + SOB no FC Objective Last 24 Hour Vital Signs Date Time Temp Pulse Resp B/P (MAP) Pulse Ox O2 Delivery O2 Flow Rate FiO2 12/21/19 12:00 Nasal Cannula 2.0 12/21/19 10:02 98.2 135/60 (85) 100 12/21/19 08:00 97.8 83 17 131/65 (87) 100 12/21/19 08:00 Nasal Cannula 2.0 12/21/19 07:50 73 12/21/19 04:00 Nasal Cannula 2.0 12/21/19 04:00 97.7 80 20 141/72 (95) 99 12/21/19 04:00 2.0 12/21/19 04:00 80 12/21/19 00:00 2.0 12/21/19 00:00 Nasal Cannula 2.0 12/21/19 00:00 82 12/21/19 00:00 97.2 80 20 128/70 (89) 100 12/20/19 21:00 74 12/20/19 20:00 2.0 12/20/19 20:00 Nasal Cannula 2.0 12/20/19 20:00 97.7 83 20 133/73 (93) 98 12/20/19 16:00 2.0 12/20/19 16:00 Nasal Cannula 2.0 12/20/19 16:00 97.0 66 18 110/73 (85) 100 12/20/19 15:34 63 12/20/19 14:19 122/72 Intake and Output 12/20/19 12/21/19 19:00 07:00 Intake Total 717.416 ml 320 ml Output Total 450 ml 350 ml Balance 267.416 ml -30 ml Intake Free Water 110 ml 160 ml IV Total 367.416 ml Tube Feeding 240 ml 160 ml Output Urine Total 450 ml 350 ml # Bowel Movements 3 General Appearance: cachetic HEENT: other - O2 NC Respiratory/Chest: rhonchi Cardiovascular: normal peripheral pulses, normal rate, regular rhythm Abdomen: normal bowel sounds, soft, non tender, no organomegaly, non distended , no mass Extremities: no cyanosis, no clubbing, no edema Laboratory Tests 12/21/19 02:41: White Blood Count 9.6, Red Blood Count 3.75L, Hemoglobin 12.1, Hematocrit 33.9L , Mean Corpuscular Volume 90, Mean Corpuscular Hemoglobin 32.1H, Mean Corpuscular Hemoglobin Concent 35.6, Red Cell Distribution Width 11.8, Platelet Count 201, Mean Platelet Volume 8.2, Neutrophils (%) (Auto) 67.7, Lymphocytes (% ) (Auto) 20.9, Monocytes (%) (Auto) 10.0, Eosinophils (%) (Auto) 1.0, Basophils (%) (Auto) 0.3, Sodium Level 143, Potassium Level 3.5, Chloride Level 107, Carbon Dioxide Level 26, Anion Gap 10, Blood Urea Nitrogen 14, Creatinine 0.9, Estimat Glomerular Filtration Rate > 60, Glucose Level 77, Calcium Level 8.8, Phosphorus Level 3.6, Magnesium Level 2.1, Ferritin 453H, Total Bilirubin 0.3, Aspartate Amino Transf (AST/SGOT) 28, Alanine Aminotransferase (ALT/SGPT) 34, Alkaline Phosphatase 151H, Troponin I 1.173H, C-Reactive Protein, Quantitative 13.1H, Pro-B-Type Natriuretic Peptide 593H, Total Protein 6.5, Albumin 1.9L, Globulin 4.6, Albumin/Globulin Ratio 0.4L Current Medications Medications (Trade) Dose Ordered Sig/Ovi Route PRN Reason Start Time Stop Time Status Last Admin Dose Admin Ascorbic Acid (Vitamin C) 1,000 mg BID NG 12/18/19 18:00 12/21/19 18:01 12/21/19 09:50 Aspirin (ASA) 81 mg DAILY NG 12/19/19 09:00 02/02/20 08:59 12/21/19 09:48 Atorvastatin Calcium (Lipitor) 20 mg BEDTIME ORAL 12/19/19 21:00 03/18/20 20:59 12/20/19 21:08 Heparin Sodium (Porcine) (Heparin 5000 units/ml) 5,000 units EVERY 12 HOURS SUBQ 12/19/19 21:00 02/02/20 20:59 12/21/19 09:55 Hydroxychloroquine Sulfate (Plaquenil) 200 mg BID ORAL 12/18/19 18:00 12/21/19 18:01 12/21/19 09:51 Lorazepam (Ativan 2mg/ml 1ml) 0.5 mg Q4H PRN IV For Anxiety 12/18/19 18:00 12/22/19 17:59 12/20/19 21:34 Nitroglycerin (Ntg) 1 patch Q24H TDERMAL 12/19/19 14:00 01/14/20 13:59 12/20/19 14:19 Pantoprazole (Protonix) 40 mg Q12HR IVP 12/18/19 21:00 01/14/20 20:59 12/21/19 09:50 Potassium Chloride (K-Dur) 20 meq TWICE A DAY ORAL 12/18/19 18:00 03/15/20 17:59 12/21/19 09:50 Valproic Acid (Depakene) 500 mg EVERY 12 HOURS NG 12/18/19 23:15 01/17/20 23:14 12/21/19 09:49 Vancomycin HCl (Vanco rx to dose) 1 ea DAILY PRN MISC Per rx protocol 12/19/19 12:00 01/18/20 11:59 Vancomycin HCl 750 mg/Sodium Chloride 275 ml @ 183.708 mls/hr Q24H IVPB 12/20/19 13:00 12/25/19 12:59 12/20/19 14:20 Zinc Sulfate (Zinc Sulfate) 220 mg DAILY NG 12/19/19 09:00 12/22/19 09:01 12/21/19 09:48 Boby Toledo MD Dec 21, 2019 12:20
[2019-12-21] MEDS: Vancomycin 750 MG in NS 275 ML IVPB SCH (12:28)
--- NOTE | 2019-12-21 13:21 | Nephrology Progress Note ---
Assessment/Plan Problem List: (1) ROSARIO (acute kidney injury) (2) Dehydration (3) Electrolyte imbalance (4) NSTEMI (non-ST elevated myocardial infarction) Assessment Acute renal failure Severe dehydration Hypernatremia indicative of free water depletion Hypercalcemia likely due to dehydration Elevated hemoglobin likely secondary to hemoconcentration Elevated troponin Poor p.o. intake / failure to thrive Dementia Hypertension Exposure to COVID-19 Plan Covid19 test positive Today's lab results reviewed IV fluid adjusted Aspirin 2D echocardiogram, results still pending IV Protonix Nitropaste Avoid nephrotoxic's Monitor renal parameters Monitor hemoglobin hematocrit Avoid mind altering medication in view of severe lethargy Per orders Subjective ROS Limited/Unobtainable: No Constitutional: Reports: malaise, weakness Objective Objective Last 24 Hour Vital Signs Date Time Temp Pulse Resp B/P (MAP) Pulse Ox O2 Delivery O2 Flow Rate FiO2 12/21/19 12:00 97.9 73 18 121/69 (86) 98 12/21/19 12:00 2.0 12/21/19 12:00 Nasal Cannula 2.0 12/21/19 12:00 75 12/21/19 10:02 98.2 135/60 (85) 100 12/21/19 08:00 97.8 83 17 131/65 (87) 100 12/21/19 08:00 2.0 12/21/19 08:00 Nasal Cannula 2.0 12/21/19 07:50 73 12/21/19 04:00 Nasal Cannula 2.0 12/21/19 04:00 97.7 80 20 141/72 (95) 99 12/21/19 04:00 2.0 12/21/19 04:00 80 12/21/19 00:00 2.0 12/21/19 00:00 Nasal Cannula 2.0 12/21/19 00:00 82 12/21/19 00:00 97.2 80 20 128/70 (89) 100 12/20/19 21:00 74 12/20/19 20:00 2.0 12/20/19 20:00 Nasal Cannula 2.0 12/20/19 20:00 97.7 83 20 133/73 (93) 98 12/20/19 16:00 2.0 12/20/19 16:00 Nasal Cannula 2.0 12/20/19 16:00 97.0 66 18 110/73 (85) 100 12/20/19 15:34 63 12/20/19 14:19 122/72 Intake and Output 12/20/19 12/21/19 19:00 07:00 Intake Total 717.416 ml 320 ml Output Total 450 ml 350 ml Balance 267.416 ml -30 ml Intake Free Water 110 ml 160 ml IV Total 367.416 ml Tube Feeding 240 ml 160 ml Output Urine Total 450 ml 350 ml # Bowel Movements 3 Current Medications Medications (Trade) Dose Ordered Sig/Ovi Route PRN Reason Start Time Stop Time Status Last Admin Dose Admin Ascorbic Acid (Vitamin C) 1,000 mg BID NG 12/18/19 18:00 12/21/19 18:01 12/21/19 09:50 Aspirin (ASA) 81 mg DAILY NG 12/19/19 09:00 02/02/20 08:59 12/21/19 09:48 Atorvastatin Calcium (Lipitor) 20 mg BEDTIME ORAL 12/19/19 21:00 03/18/20 20:59 12/20/19 21:08 Heparin Sodium (Porcine) (Heparin 5000 units/ml) 5,000 units EVERY 12 HOURS SUBQ 12/19/19 21:00 02/02/20 20:59 12/21/19 09:55 Hydroxychloroquine Sulfate (Plaquenil) 200 mg BID ORAL 12/18/19 18:00 12/21/19 18:01 12/21/19 09:51 Lorazepam (Ativan 2mg/ml 1ml) 0.5 mg Q4H PRN IV For Anxiety 12/18/19 18:00 12/22/19 17:59 12/20/19 21:34 Nitroglycerin (Ntg) 1 patch Q24H TDERMAL 12/19/19 14:00 01/14/20 13:59 12/20/19 14:19 Pantoprazole (Protonix) 40 mg Q12HR IVP 12/18/19 21:00 01/14/20 20:59 12/21/19 09:50 Potassium Chloride (K-Dur) 20 meq TWICE A DAY ORAL 12/18/19 18:00 03/15/20 17:59 12/21/19 09:50 Valproic Acid (Depakene) 500 mg EVERY 12 HOURS NG 12/18/19 23:15 01/17/20 23:14 12/21/19 09:49 Vancomycin HCl (Vanco rx to dose) 1 ea DAILY PRN MISC Per rx protocol 12/19/19 12:00 01/18/20 11:59 Vancomycin HCl 750 mg/Sodium Chloride 275 ml @ 183.708 mls/hr Q24H IVPB 12/20/19 13:00 12/25/19 12:59 12/21/19 12:28 Zinc Sulfate (Zinc Sulfate) 220 mg DAILY NG 12/19/19 09:00 12/22/19 09:01 12/21/19 09:48 Laboratory Tests 12/21/19 02:41: White Blood Count 9.6, Red Blood Count 3.75L, Hemoglobin 12.1, Hematocrit 33.9L , Mean Corpuscular Volume 90, Mean Corpuscular Hemoglobin 32.1H, Mean Corpuscular Hemoglobin Concent 35.6, Red Cell Distribution Width 11.8, Platelet Count 201, Mean Platelet Volume 8.2, Neutrophils (%) (Auto) 67.7, Lymphocytes (% ) (Auto) 20.9, Monocytes (%) (Auto) 10.0, Eosinophils (%) (Auto) 1.0, Basophils (%) (Auto) 0.3, Sodium Level 143, Potassium Level 3.5, Chloride Level 107, Carbon Dioxide Level 26, Anion Gap 10, Blood Urea Nitrogen 14, Creatinine 0.9, Estimat Glomerular Filtration Rate > 60, Glucose Level 77, Calcium Level 8.8, Phosphorus Level 3.6, Magnesium Level 2.1, Ferritin 453H, Total Bilirubin 0.3, Aspartate Amino Transf (AST/SGOT) 28, Alanine Aminotransferase (ALT/SGPT) 34, Alkaline Phosphatase 151H, Troponin I 1.173H, C-Reactive Protein, Quantitative 13.1H, Pro-B-Type Natriuretic Peptide 593H, Total Protein 6.5, Albumin 1.9L, Globulin 4.6, Albumin/Globulin Ratio 0.4L Height (Feet): 5 Height (Inches): 0.00 Weight (Pounds): 157 General Appearance: no apparent distress Cardiovascular: normal rate Respiratory/Chest: decreased breath sounds Abdomen: soft Objective No change Robert Foreman MD Dec 21, 2019 13:21
[2019-12-21] MEDS: Nitroglycerin Patch 0.4mg TDERMAL SCH (14:51)
--- NOTE | 2019-12-21 15:48 | Cardiology Progress Note ---
Assessment/Plan Assessment/Plan 1. Lmf-LL-hukiviuex myocardial infarction,related to demand vs from covid induced myonecrosis , doubt plaque rupture or cytokine storm 2. Acute renal failure in the setting of volume depletion. 3. Hypernatremia secondary to volume depletion. 4. 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 5. Dementia. 6. Lactic acidosis. 7. History of bradycardia secondary to medications. 8. bacteremia trop trending down no fever covid status postitive off hepearin iv on sq herparin for dvt ppx echo not performed as covid + on sdu now tele sinus not need restraint at this time per rn sats are fine on ecotrin and statin on feeding on iv vanco await id input hemodynamically stable for the moment Subjective ROS Limited/Unobtainable: Yes Subjective per rn no cough no fever no vomit confused, , still yell bu t nto pull out any of keira tube or iv even without a restraitn perrn no diarrhea Objective Last 24 Hour Vital Signs Date Time Temp Pulse Resp B/P (MAP) Pulse Ox O2 Delivery O2 Flow Rate FiO2 12/21/19 14:51 121/69 12/21/19 12:00 97.9 73 18 121/69 (86) 98 12/21/19 12:00 2.0 12/21/19 12:00 Nasal Cannula 2.0 12/21/19 12:00 75 12/21/19 10:02 98.2 135/60 (85) 100 12/21/19 08:00 97.8 83 17 131/65 (87) 100 12/21/19 08:00 2.0 12/21/19 08:00 Nasal Cannula 2.0 12/21/19 07:50 73 12/21/19 04:00 Nasal Cannula 2.0 12/21/19 04:00 97.7 80 20 141/72 (95) 99 12/21/19 04:00 2.0 12/21/19 04:00 80 12/21/19 00:00 2.0 12/21/19 00:00 Nasal Cannula 2.0 12/21/19 00:00 82 12/21/19 00:00 97.2 80 20 128/70 (89) 100 12/20/19 21:00 74 12/20/19 20:00 2.0 12/20/19 20:00 Nasal Cannula 2.0 12/20/19 20:00 97.7 83 20 133/73 (93) 98 12/20/19 16:00 2.0 12/20/19 16:00 Nasal Cannula 2.0 12/20/19 16:00 97.0 66 18 110/73 (85) 100 General Appearance: no apparent distress, alert, patient on isolation, other - looks call form out side the door Intake and Output 12/20/19 12/21/19 19:00 07:00 Intake Total 717.416 ml 320 ml Output Total 450 ml 350 ml Balance 267.416 ml -30 ml Intake Free Water 110 ml 160 ml IV Total 367.416 ml Tube Feeding 240 ml 160 ml Output Urine Total 450 ml 350 ml # Bowel Movements 3 Laboratory Tests Test 12/21/19 02:41 White Blood Count 9.6 K/UL (4.8-10.8) Red Blood Count 3.75 M/UL (4.20-5.40) L Hemoglobin 12.1 G/DL (12.0-16.0) Hematocrit 33.9 % (37.0-47.0) L Mean Corpuscular Volume 90 FL (80-99) Mean Corpuscular Hemoglobin 32.1 PG (27.0-31.0) H Mean Corpuscular Hemoglobin Concent 35.6 G/DL (32.0-36.0) Red Cell Distribution Width 11.8 % (11.6-14.8) Platelet Count 201 K/UL (150-450) Mean Platelet Volume 8.2 FL (6.5-10.1) Neutrophils (%) (Auto) 67.7 % (45.0-75.0) Lymphocytes (%) (Auto) 20.9 % (20.0-45.0) Monocytes (%) (Auto) 10.0 % (1.0-10.0) Eosinophils (%) (Auto) 1.0 % (0.0-3.0) Basophils (%) (Auto) 0.3 % (0.0-2.0) Sodium Level 143 MMOL/L (136-145) Potassium Level 3.5 MMOL/L (3.5-5.1) Chloride Level 107 MMOL/L (98-107) Carbon Dioxide Level 26 MMOL/L (21-32) Anion Gap 10 mmol/L (5-15) Blood Urea Nitrogen 14 mg/dL (7-18) Creatinine 0.9 MG/DL (0.55-1.30) Estimat Glomerular Filtration Rate > 60 mL/min (>60) Glucose Level 77 MG/DL (74-106) Calcium Level 8.8 MG/DL (8.5-10.1) Phosphorus Level 3.6 MG/DL (2.5-4.9) Magnesium Level 2.1 MG/DL (1.8-2.4) Ferritin 453 NG/ML (8-388) H Total Bilirubin 0.3 MG/DL (0.2-1.0) Aspartate Amino Transf (AST/SGOT) 28 U/L (15-37) Alanine Aminotransferase (ALT/SGPT) 34 U/L (12-78) Alkaline Phosphatase 151 U/L (46-116) H Troponin I 1.173 ng/mL (0.000-0.056) C-Reactive Protein, Quantitative 13.1 mg/dL (0.00-0.90) H Pro-B-Type Natriuretic Peptide 593 pg/mL (0-125) H Total Protein 6.5 G/DL (6.4-8.2) Albumin 1.9 G/DL (3.4-5.0) L Globulin 4.6 g/dL Albumin/Globulin Ratio 0.4 (1.0-2.7) L Valproic Acid (Depakene) Level 70 MCG/ML (50-100) Kendell Rosen MD Dec 21, 2019 15:48
--- NOTE | 2019-12-21 16:18 | Infectious Diseases Prog Note ---
Assessment/Plan Problems: (1) Sepsis Assessment & Plan: with Staphylococcus epidermidis source ? continue vancomycin for two weeks, repeat blood culture to confirm clearance (2) COVID-19 virus infection Assessment & Plan: keep in enhanced droplet isolation, continue hydroxychloroquin with zinc and vitamin C for five days total, monitor EKG for QT prolongation, cardiology is following (3) Viral pneumonia Assessment & Plan: due to COVID 19, continue hydroxychloroquine , with zinc and vitamin C for five days, monitor CXR (4) ROSARIO (acute kidney injury) Assessment & Plan: suspect due to dehydration and poor oral intake improving monitor renal function avoid nephrotoxic's (5) Dehydration Assessment & Plan: continue IV fluid for hydration with close monitoring of sodium level (6) NSTEMI (non-ST elevated myocardial infarction) Assessment & Plan: could be due to COVID 19, cardiology is following monitor troponin level Subjective ROS Limited/Unobtainable: Yes Allergies: Coded Allergies: MEMANTINE (Unverified Allergy, Unknown, 12/15/19) SERTRALINE (Unverified Allergy, Unknown, 12/15/19) Subjective she was transferred out of ICU to SDU, had no fever today, no SOB, confused , receiving meds though NGT , no agitation Objective Vital Signs Last 24 Hour Vital Signs Date Time Temp Pulse Resp B/P (MAP) Pulse Ox O2 Delivery O2 Flow Rate FiO2 12/21/19 14:51 121/69 12/21/19 12:00 97.9 73 18 121/69 (86) 98 12/21/19 12:00 2.0 12/21/19 12:00 Nasal Cannula 2.0 12/21/19 12:00 75 12/21/19 10:02 98.2 135/60 (85) 100 12/21/19 08:00 97.8 83 17 131/65 (87) 100 12/21/19 08:00 2.0 12/21/19 08:00 Nasal Cannula 2.0 12/21/19 07:50 73 12/21/19 04:00 Nasal Cannula 2.0 12/21/19 04:00 97.7 80 20 141/72 (95) 99 12/21/19 04:00 2.0 12/21/19 04:00 80 12/21/19 00:00 2.0 12/21/19 00:00 Nasal Cannula 2.0 12/21/19 00:00 82 12/21/19 00:00 97.2 80 20 128/70 (89) 100 12/20/19 21:00 74 12/20/19 20:00 2.0 12/20/19 20:00 Nasal Cannula 2.0 12/20/19 20:00 97.7 83 20 133/73 (93) 98 Height (Feet): 5 Height (Inches): 0.00 Weight (Pounds): 157 General Appearance: WD/WN, no acute distress HEENT: normocephalic, atraumatic, anicteric, mucous membranes moist, PERRL Respiratory/Chest: chest wall non-tender, lungs clear, normal breath sounds, no respiratory distress, no accessory muscle use Cardiovascular: normal peripheral pulses, normal rate, regular rhythm, no gallop/murmur, no JVD Abdomen: normal bowel sounds, soft, non tender, no organomegaly, non distended , no mass, no scars Genitourinary: normal external genitalia Extremities: no cyanosis, no clubbing Skin: no rash, no lesions, no ulcers 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, alert, unresponsiveness Lymphatic: no neck adenopathy, no groin adenopathy Musculoskeletal: normal muscle bulk, no effusion Laboratory Tests Test 12/21/19 02:41 White Blood Count 9.6 K/UL (4.8-10.8) Red Blood Count 3.75 M/UL (4.20-5.40) L Hemoglobin 12.1 G/DL (12.0-16.0) Hematocrit 33.9 % (37.0-47.0) L Mean Corpuscular Volume 90 FL (80-99) Mean Corpuscular Hemoglobin 32.1 PG (27.0-31.0) H Mean Corpuscular Hemoglobin Concent 35.6 G/DL (32.0-36.0) Red Cell Distribution Width 11.8 % (11.6-14.8) Platelet Count 201 K/UL (150-450) Mean Platelet Volume 8.2 FL (6.5-10.1) Neutrophils (%) (Auto) 67.7 % (45.0-75.0) Lymphocytes (%) (Auto) 20.9 % (20.0-45.0) Monocytes (%) (Auto) 10.0 % (1.0-10.0) Eosinophils (%) (Auto) 1.0 % (0.0-3.0) Basophils (%) (Auto) 0.3 % (0.0-2.0) Sodium Level 143 MMOL/L (136-145) Potassium Level 3.5 MMOL/L (3.5-5.1) Chloride Level 107 MMOL/L (98-107) Carbon Dioxide Level 26 MMOL/L (21-32) Anion Gap 10 mmol/L (5-15) Blood Urea Nitrogen 14 mg/dL (7-18) Creatinine 0.9 MG/DL (0.55-1.30) Estimat Glomerular Filtration Rate > 60 mL/min (>60) Glucose Level 77 MG/DL (74-106) Calcium Level 8.8 MG/DL (8.5-10.1) Phosphorus Level 3.6 MG/DL (2.5-4.9) Magnesium Level 2.1 MG/DL (1.8-2.4) Ferritin 453 NG/ML (8-388) H Total Bilirubin 0.3 MG/DL (0.2-1.0) Aspartate Amino Transf (AST/SGOT) 28 U/L (15-37) Alanine Aminotransferase (ALT/SGPT) 34 U/L (12-78) Alkaline Phosphatase 151 U/L (46-116) H Troponin I 1.173 ng/mL (0.000-0.056) C-Reactive Protein, Quantitative 13.1 mg/dL (0.00-0.90) H Pro-B-Type Natriuretic Peptide 593 pg/mL (0-125) H Total Protein 6.5 G/DL (6.4-8.2) Albumin 1.9 G/DL (3.4-5.0) L Globulin 4.6 g/dL Albumin/Globulin Ratio 0.4 (1.0-2.7) L Valproic Acid (Depakene) Level 70 MCG/ML (50-100) Current Medications Medications (Trade) Dose Ordered Sig/Ovi Route PRN Reason Start Time Stop Time Status Last Admin Dose Admin Ascorbic Acid (Vitamin C) 1,000 mg BID NG 12/18/19 18:00 12/21/19 18:01 12/21/19 09:50 Aspirin (ASA) 81 mg DAILY NG 12/19/19 09:00 02/02/20 08:59 12/21/19 09:48 Atorvastatin Calcium (Lipitor) 20 mg BEDTIME ORAL 12/19/19 21:00 03/18/20 20:59 12/20/19 21:08 Heparin Sodium (Porcine) (Heparin 5000 units/ml) 5,000 units EVERY 12 HOURS SUBQ 12/19/19 21:00 02/02/20 20:59 12/21/19 09:55 Hydroxychloroquine Sulfate (Plaquenil) 200 mg BID ORAL 12/18/19 18:00 12/21/19 18:01 12/21/19 09:51 Lorazepam (Ativan 2mg/ml 1ml) 0.5 mg Q4H PRN IV For Anxiety 12/18/19 18:00 12/22/19 17:59 12/20/19 21:34 Nitroglycerin (Ntg) 1 patch Q24H TDERMAL 12/19/19 14:00 01/14/20 13:59 12/21/19 14:51 Pantoprazole (Protonix) 40 mg Q12HR IVP 12/18/19 21:00 01/14/20 20:59 12/21/19 09:50 Potassium Chloride (K-Dur) 20 meq TWICE A DAY ORAL 12/18/19 18:00 03/15/20 17:59 12/21/19 09:50 Valproic Acid (Depakene) 500 mg EVERY 12 HOURS NG 12/18/19 23:15 01/17/20 23:14 12/21/19 09:49 Vancomycin HCl (Vanco rx to dose) 1 ea DAILY PRN MISC Per rx protocol 12/19/19 12:00 01/18/20 11:59 Vancomycin HCl 750 mg/Sodium Chloride 275 ml @ 183.708 mls/hr Q24H IVPB 12/20/19 13:00 12/25/19 12:59 12/21/19 12:28 Zinc Sulfate (Zinc Sulfate) 220 mg DAILY NG 12/19/19 09:00 12/22/19 09:01 12/21/19 09:48 Sukhjinder Howell M.D. Dec 21, 2019 16:18
[2019-12-21] MEDS: Atorvastatin 20mg tab ORAL SCH (21:32)
[2019-12-21] MEDS: LORazepam Inj 2mg/ml 1ml IV PRN (21:33)
[2019-12-22] VITALS: BP 120/60
[2019-12-22] MEDS: LORazepam Inj 2mg/ml 1ml IV PRN (01:42)
[2019-12-22 04:00] VITALS: BP 134/67
[2019-12-22 08:00] VITALS: BP 127/70
[2019-12-22] MEDS: Aspirin Baby 81mg NG SCH (09:15)
[2019-12-22] MEDS: Pantoprazole Inj IVP SCH ×2 (09:15→21:20)
[2019-12-22] MEDS: Zinc Sulfate 220mg cap NG SCH (09:15)
[2019-12-22] MEDS: Valproic Acid 250mg/5ml Liquid NG SCH ×2 (09:16→21:19)
[2019-12-22] MEDS: Heparin 5000 units/ml inj SUBQ SCH ×2 (09:16→21:23)
--- NOTE | 2019-12-22 11:07 | Pulmonology Progress Note ---
Assessment/Plan Problems: (1) COVID-19 virus infection (2) Viral pneumonia (3) Electrolyte imbalance (4) NSTEMI (non-ST elevated myocardial infarction) (5) Encephalopathy (6) Dehydration (7) ROSARIO (acute kidney injury) (8) Staphylococcus epidermidis bacteremia Assessment/Plan Problem List: Covid-19 positive Acute hypoxemic respiratory failure S epidermis BSI Acute renal failure - RESOLVED Severe dehydration - IMPROVED Hypernatremia indicative of free water depletion Hypercalcemia likely due to dehydration Elevated hemoglobin likely secondary to hemoconcentration Elevated troponin/NSTEMI Poor p.o. 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 Trop flat. COVID swab results pending Allergies: Coded Allergies: MEMANTINE (Unverified Allergy, Unknown, 12/15/19) SERTRALINE (Unverified Allergy, Unknown, 12/15/19) Subjective AFVSS on 2L confused Kody NGTF's some cough + SOB no FC Objective Last 24 Hour Vital Signs Date Time Temp Pulse Resp B/P (MAP) Pulse Ox O2 Delivery O2 Flow Rate FiO2 12/22/19 08:00 87 12/22/19 08:00 98.2 18 127/70 (89) 96 12/22/19 08:00 Nasal Cannula 2.0 12/22/19 04:00 83 12/22/19 04:00 Nasal Cannula 2.0 12/22/19 04:00 98.0 17 134/67 (89) 100 12/22/19 00:00 98.6 18 120/60 (80) 100 12/22/19 00:00 82 12/22/19 00:00 Nasal Cannula 2.0 12/21/19 20:00 Nasal Cannula 2.0 12/21/19 20:00 98.1 17 127/59 (81) 100 12/21/19 19:32 80 12/21/19 16:00 74 12/21/19 16:00 98.2 19 131/67 (88) 100 12/21/19 16:00 Nasal Cannula 2.0 12/21/19 14:51 121/69 12/21/19 12:00 97.9 73 18 121/69 (86) 98 12/21/19 12:00 2.0 12/21/19 12:00 Nasal Cannula 2.0 12/21/19 12:00 75 Intake and Output 12/21/19 12/22/19 19:00 07:00 Intake Total 70 ml 300 ml Balance 70 ml 300 ml Intake Free Water 50 ml 100 ml Tube Feeding 20 ml 200 ml General Appearance: WD/WN, no acute distress HEENT: normocephalic, atraumatic, anicteric, mucous membranes moist, PERRL Respiratory/Chest: rhonchi Cardiovascular: normal peripheral pulses, normal rate, regular rhythm Abdomen: normal bowel sounds, soft, non tender, no organomegaly, non distended , no mass, no scars Genitourinary: normal external genitalia Extremities: no cyanosis, no clubbing Skin: no rash, no lesions, no ulcers 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, alert, unresponsiveness Lymphatic: no neck adenopathy, no groin adenopathy Musculoskeletal: normal muscle bulk, no effusion Current Medications Medications (Trade) Dose Ordered Sig/Ovi Route PRN Reason Start Time Stop Time Status Last Admin Dose Admin Aspirin (ASA) 81 mg DAILY NG 12/19/19 09:00 02/02/20 08:59 12/22/19 09:15 Atorvastatin Calcium (Lipitor) 20 mg BEDTIME ORAL 12/19/19 21:00 03/18/20 20:59 12/21/19 21:32 Heparin Sodium (Porcine) (Heparin 5000 units/ml) 5,000 units EVERY 12 HOURS SUBQ 12/19/19 21:00 02/02/20 20:59 12/22/19 09:16 Lorazepam (Ativan 2mg/ml 1ml) 0.5 mg Q4H PRN IV For Anxiety 12/18/19 18:00 12/22/19 17:59 12/22/19 01:42 Nitroglycerin (Ntg) 1 patch Q24H TDERMAL 12/19/19 14:00 01/14/20 13:59 12/21/19 14:51 Pantoprazole (Protonix) 40 mg Q12HR IVP 12/18/19 21:00 01/14/20 20:59 12/22/19 09:15 Potassium Chloride (K-Dur) 20 meq TWICE A DAY ORAL 12/18/19 18:00 03/15/20 17:59 12/22/19 09:15 Valproic Acid (Depakene) 500 mg EVERY 12 HOURS NG 12/18/19 23:15 01/17/20 23:14 12/22/19 09:16 Vancomycin HCl (Vanco rx to dose) 1 ea DAILY PRN MISC Per rx protocol 12/19/19 12:00 01/18/20 11:59 Vancomycin HCl 750 mg/Sodium Chloride 275 ml @ 183.708 mls/hr Q24H IVPB 12/20/19 13:00 12/25/19 12:59 12/21/19 12:28 Boby Toledo MD Dec 22, 2019 11:07
[2019-12-22 12:00] VITALS: BP 129/76
--- NOTE | 2019-12-22 12:58 | Nephrology Progress Note ---
Assessment/Plan Problem List: (1) ROSARIO (acute kidney injury) (2) Dehydration (3) Electrolyte imbalance (4) NSTEMI (non-ST elevated myocardial infarction) Assessment Acute renal failure Severe dehydration Hypernatremia indicative of free water depletion Hypercalcemia likely due to dehydration Elevated hemoglobin likely secondary to hemoconcentration Elevated troponin Poor p.o. intake / failure to thrive Dementia Hypertension Exposure to COVID-19 Plan Covid19 test positive Today's lab results reviewed IV fluid adjusted Aspirin 2D echocardiogram, results still pending IV Protonix Nitropaste Avoid nephrotoxic's Monitor renal parameters Monitor hemoglobin hematocrit Avoid mind altering medication in view of severe lethargy Per orders Subjective ROS Limited/Unobtainable: No Constitutional: Reports: malaise, weakness Objective Objective Last 24 Hour Vital Signs Date Time Temp Pulse Resp B/P (MAP) Pulse Ox O2 Delivery O2 Flow Rate FiO2 12/22/19 12:00 98.2 18 129/76 (93) 97 12/22/19 11:29 84 12/22/19 08:00 87 12/22/19 08:00 98.2 18 127/70 (89) 96 12/22/19 08:00 Nasal Cannula 2.0 12/22/19 04:00 83 12/22/19 04:00 Nasal Cannula 2.0 12/22/19 04:00 98.0 17 134/67 (89) 100 12/22/19 00:00 98.6 18 120/60 (80) 100 12/22/19 00:00 82 12/22/19 00:00 Nasal Cannula 2.0 12/21/19 20:00 Nasal Cannula 2.0 12/21/19 20:00 98.1 17 127/59 (81) 100 12/21/19 19:32 80 12/21/19 16:00 74 12/21/19 16:00 98.2 19 131/67 (88) 100 12/21/19 16:00 Nasal Cannula 2.0 12/21/19 14:51 121/69 Intake and Output 12/21/19 12/22/19 19:00 07:00 Intake Total 70 ml 300 ml Balance 70 ml 300 ml Intake Free Water 50 ml 100 ml Tube Feeding 20 ml 200 ml Laboratory Tests 12/22/19 12:00: Vancomycin Level Trough [Pending] Height (Feet): 5 Height (Inches): 0.00 Weight (Pounds): 158 General Appearance: no apparent distress Objective No change Robert Foreman MD Dec 22, 2019 12:58
[2019-12-22] MEDS: Nitroglycerin Patch 0.4mg TDERMAL SCH (14:18)
[2019-12-22] MEDS: Vancomycin 750 MG in NS 275 ML IVPB SCH (14:20)
[2019-12-22] MEDS ORDERED: NS 275ml ONE (14:48)
[2019-12-22] MEDS ORDERED: Tubing IV Secondary IV ONE (14:48)
[2019-12-22 16:00] VITALS: BP 138/72
--- NOTE | 2019-12-22 19:19 | Infectious Diseases Prog Note ---
Assessment/Plan Problems: (1) Sepsis Assessment & Plan: with Staphylococcus epidermidis source ? continue vancomycin for two weeks, repeat blood culture to confirm clearance (2) COVID-19 virus infection Assessment & Plan: keep in enhanced droplet isolation, S/P hydroxychloroquin with zinc and vitamin C for five days total. (3) Viral pneumonia Assessment & Plan: due to COVID 19, S/P hydroxychloroquine , with zinc and vitamin C for five days, Repeated PCR test is pending (4) ROSARIO (acute kidney injury) Assessment & Plan: suspect due to dehydration and poor oral intake improving monitor renal function avoid nephrotoxic's (5) Dehydration Assessment & Plan: continue IV fluid for hydration with close monitoring of sodium level (6) NSTEMI (non-ST elevated myocardial infarction) Assessment & Plan: could be due to COVID 19, cardiology is following monitor troponin level Subjective ROS Limited/Unobtainable: Yes Allergies: Coded Allergies: MEMANTINE (Unverified Allergy, Unknown, 12/15/19) SERTRALINE (Unverified Allergy, Unknown, 12/15/19) Subjective she was resting in bed in SDU, had no fever today, no SOB, confused , receiving meds though NGT , no agitation Objective Vital Signs Last 24 Hour Vital Signs Date Time Temp Pulse Resp B/P (MAP) Pulse Ox O2 Delivery O2 Flow Rate FiO2 12/22/19 16:00 Nasal Cannula 2.0 12/22/19 16:00 98.1 78 20 138/72 (94) 96 12/22/19 16:00 78 12/22/19 14:18 129/76 12/22/19 12:00 Nasal Cannula 2.0 12/22/19 12:00 98.2 78 18 129/76 (93) 97 12/22/19 11:29 84 12/22/19 08:00 87 12/22/19 08:00 98.2 18 127/70 (89) 96 12/22/19 08:00 Nasal Cannula 2.0 12/22/19 04:00 83 12/22/19 04:00 Nasal Cannula 2.0 12/22/19 04:00 98.0 17 134/67 (89) 100 12/22/19 00:00 98.6 18 120/60 (80) 100 12/22/19 00:00 82 12/22/19 00:00 Nasal Cannula 2.0 12/21/19 20:00 Nasal Cannula 2.0 12/21/19 20:00 98.1 17 127/59 (81) 100 12/21/19 19:32 80 Height (Feet): 5 Height (Inches): 0.00 Weight (Pounds): 158 General Appearance: WD/WN, no acute distress HEENT: normocephalic, atraumatic, anicteric, mucous membranes moist, PERRL Respiratory/Chest: chest wall non-tender, no respiratory distress, no accessory muscle use, decreased breath sounds Cardiovascular: normal peripheral pulses, normal rate, regular rhythm, no gallop/murmur, no JVD Abdomen: normal bowel sounds, soft, non tender, no organomegaly, non distended , no mass, no scars Extremities: no cyanosis, no clubbing Skin: no rash, no lesions 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: unresponsiveness Laboratory Tests Test 12/22/19 12:00 Vancomycin Level Trough 2.6 ug/mL (5.0-12.0) L Current Medications Medications (Trade) Dose Ordered Sig/Ovi Route PRN Reason Start Time Stop Time Status Last Admin Dose Admin Aspirin (ASA) 81 mg DAILY NG 12/19/19 09:00 02/02/20 08:59 12/22/19 09:15 Atorvastatin Calcium (Lipitor) 20 mg BEDTIME ORAL 12/19/19 21:00 03/18/20 20:59 12/21/19 21:32 Heparin Sodium (Porcine) (Heparin 5000 units/ml) 5,000 units EVERY 12 HOURS SUBQ 12/19/19 21:00 02/02/20 20:59 12/22/19 09:16 Nitroglycerin (Ntg) 1 patch Q24H TDERMAL 12/19/19 14:00 01/14/20 13:59 12/22/19 14:18 Pantoprazole (Protonix) 40 mg Q12HR IVP 12/18/19 21:00 01/14/20 20:59 12/22/19 09:15 Potassium Chloride (K-Dur) 20 meq TWICE A DAY ORAL 12/18/19 18:00 03/15/20 17:59 12/22/19 18:15 Valproic Acid (Depakene) 500 mg EVERY 12 HOURS NG 12/18/19 23:15 01/17/20 23:14 12/22/19 09:16 Vancomycin HCl (Vanco rx to dose) 1 ea DAILY PRN MISC Per rx protocol 12/19/19 12:00 01/18/20 11:59 Vancomycin HCl 750 mg/Sodium Chloride 275 ml @ 183.708 mls/hr Q12HR@0200,1400 IVPB 12/22/19 14:00 12/27/19 13:59 12/22/19 14:20 Sukhjinder Howell M.D. Dec 22, 2019 19:19
[2019-12-22 20:00] VITALS: BP 148/71
[2019-12-22] MEDS: Atorvastatin 20mg tab ORAL SCH (21:20)
[2019-12-23] VITALS: BP 139/76
[2019-12-23] MEDS: Vancomycin 750 MG in NS 275 ML IVPB SCH ×2 (01:45→13:28)
[2019-12-23 04:00] VITALS: BP 149/92
[2019-12-23 05:04] LABS: BASOPHILS % (AUTO) 0.4 % (0.0-2.0); EOSINOPHILS % (AUTO) 0.8 % (0.0-3.0); HEMATOCRIT 34.5 % (37.0-47.0); LYMPHOCYTES % (AUTO) 23.2 % (20.0-45.0); MEAN CORPUSCULAR VOLUME 91 FL (80-99); MONOCYTES % (AUTO) 8.9 % (1.0-10.0); NEUTROPHILS % (AUTO) 66.6 % (45.0-75.0); PLATELET COUNT 198 K/UL (150-450); RED BLOOD COUNT 3.78 M/UL (4.20-5.40); RED CELL DISTRIBUTION WIDTH 12.1 % (11.6-14.8); WHITE BLOOD COUNT 9.9 K/UL (4.8-10.8)
[2019-12-23 05:45] LABS: ALANINE AMINOTRANSFERASE 28 U/L (12-78); ALBUMIN 1.8 G/DL (3.4-5.0); ALBUMIN/GLOBULIN RATIO 0.4 (1.0-2.7); ALKALINE PHOSPHATASE 153 U/L (46-116); ANION GAP 9 mmol/L (5-15); ASPARTATE AMINO TRANSFERASE 26 U/L (15-37); BILIRUBIN,TOTAL 0.2 MG/DL (0.2-1.0); BLOOD UREA NITROGEN 14 mg/dL (7-18); CALCIUM 8.7 MG/DL (8.5-10.1); CARBON DIOXIDE 26 MMOL/L (21-32); CHLORIDE 107 MMOL/L (98-107); CREATININE 0.9 MG/DL (0.55-1.30); PHOSPHORUS 3.2 MG/DL (2.5-4.9); POTASSIUM 4.3 MMOL/L (3.5-5.1); SODIUM 142 MMOL/L (136-145)
[2019-12-23 08:00] VITALS: BP 128/73
[2019-12-23] MEDS: Heparin 5000 units/ml inj SUBQ SCH ×2 (08:52→22:12)
[2019-12-23] MEDS: Aspirin Baby 81mg NG SCH (08:52)
[2019-12-23] MEDS: Pantoprazole Inj IVP SCH ×2 (08:53→22:04)
[2019-12-23] MEDS: Valproic Acid 250mg/5ml Liquid NG SCH ×2 (08:53→22:04)
--- NOTE | 2019-12-23 09:34 | Pulmonology Progress Note ---
Marge Gutierrez TOWN MANAGER 12/23/19 0934: Assessment/Plan Assessment/Plan PROBLEMS (1) COVID-19 virus infection (2) Viral pneumonia (3) Electrolyte imbalance (4) NSTEMI (non-ST elevated myocardial infarction) (5) Encephalopathy (6) Dehydration (7) ROSARIO (acute kidney injury) (8) Staphylococcus epidermidis bacteremia Assessment/Plan Covid-19 positive Acute hypoxemic respiratory failure S epidermis BSI Acute renal failure - RESOLVED Severe dehydration - IMPROVED Hypernatremia indicative of free water depletion Hypercalcemia likely due to dehydration Elevated hemoglobin likely secondary to hemoconcentration Elevated troponin/NSTEMI Poor p.o. 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 Trop flat. COVID swab results pending Allergies: Coded Allergies: MEMANTINE (Unverified Allergy, Unknown, 12/15/19) SERTRALINE (Unverified Allergy, Unknown, 12/15/19) Subjective low grade fever this am on RA Objective Last 24 Hour Vital Signs Date Time Temp Pulse Resp B/P (MAP) Pulse Ox O2 Delivery O2 Flow Rate FiO2 12/23/19 08:00 99.9 86 18 128/73 (91) 96 12/23/19 04:00 98.1 96 26 149/92 (111) 98 12/23/19 04:00 85 12/23/19 04:00 Room Air 12/23/19 00:00 97.8 96 19 139/76 (97) 96 12/23/19 00:00 Room Air 12/23/19 00:00 89 12/22/19 20:00 98.1 78 17 148/71 (96) 98 12/22/19 20:00 Room Air 12/22/19 19:10 77 12/22/19 16:00 Nasal Cannula 2.0 12/22/19 16:00 98.1 78 20 138/72 (94) 96 12/22/19 16:00 78 12/22/19 14:18 129/76 12/22/19 12:00 Nasal Cannula 2.0 12/22/19 12:00 98.2 78 18 129/76 (93) 97 12/22/19 11:29 84 Intake and Output 12/22/19 12/23/19 19:00 07:00 Intake Total 540 ml 615.000 ml Output Total 300 ml Balance 240 ml 615.000 ml Intake Free Water 300 ml 200 ml IV Total 275.000 ml Tube Feeding 240 ml 140 ml Output Urine Total 300 ml Objective General Appearance: WD/WN, no acute distress elderly female HEENT: normocephalic, atraumatic, anicteric, mucous membranes moist, PERRL, NGT Respiratory/Chest: few scattered rhonchi Cardiovascular: normal peripheral pulses, normal rate, regular rhythm Abdomen: normal bowel sounds, soft, non tender, no organomegaly, non distended , no mass, no scars Genitourinary: normal external genitalia Extremities: no cyanosis, no clubbing Skin: no rash, no lesions, no ulcers 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, alert, not- responsiveness Lymphatic: no neck adenopathy, no groin adenopathy Musculoskeletal: normal muscle bulk, no effusion Respiratory/Chest: rhonchi Microbiology Date/Time Source Procedure Growth Status 12/21/19 17:40 Blood Blood Culture - Preliminary NO GROWTH AFTER 24 HOURS Resulted 12/21/19 17:25 Blood Blood Culture - Preliminary NO GROWTH AFTER 24 HOURS Resulted Laboratory Tests 12/22/19 12:00: Vancomycin Level Trough 2.6L 12/23/19 02:50: White Blood Count 9.9, Red Blood Count 3.78L, Hemoglobin 12.0, Hematocrit 34.5L , Mean Corpuscular Volume 91, Mean Corpuscular Hemoglobin 31.7H, Mean Corpuscular Hemoglobin Concent 34.7, Red Cell Distribution Width 12.1, Platelet Count 198, Mean Platelet Volume 7.1, Neutrophils (%) (Auto) 66.6, Lymphocytes (% ) (Auto) 23.2, Monocytes (%) (Auto) 8.9, Eosinophils (%) (Auto) 0.8, Basophils ( %) (Auto) 0.4, Sodium Level 142, Potassium Level 4.3, Chloride Level 107, Carbon Dioxide Level 26, Anion Gap 9, Blood Urea Nitrogen 14, Creatinine 0.9, Estimat Glomerular Filtration Rate > 60, Glucose Level 102, Calcium Level 8.7, Phosphorus Level 3.2, Magnesium Level 2.0, Total Bilirubin 0.2, Aspartate Amino Transf (AST/SGOT) 26, Alanine Aminotransferase (ALT/SGPT) 28, Alkaline Phosphatase 153H, C-Reactive Protein, Quantitative 9.9H, Pro-B-Type Natriuretic Peptide 779H, Total Protein 6.5, Albumin 1.8L, Globulin 4.7, Albumin/Globulin Ratio 0.4L Current Medications Medications (Trade) Dose Ordered Sig/Ovi Route PRN Reason Start Time Stop Time Status Last Admin Dose Admin Aspirin (ASA) 81 mg DAILY NG 12/19/19 09:00 02/02/20 08:59 12/23/19 08:52 Atorvastatin Calcium (Lipitor) 20 mg BEDTIME ORAL 12/19/19 21:00 03/18/20 20:59 12/22/19 21:20 Heparin Sodium (Porcine) (Heparin 5000 units/ml) 5,000 units EVERY 12 HOURS SUBQ 12/19/19 21:00 02/02/20 20:59 12/23/19 08:52 Nitroglycerin (Ntg) 1 patch Q24H TDERMAL 12/19/19 14:00 01/14/20 13:59 12/22/19 14:18 Pantoprazole (Protonix) 40 mg Q12HR IVP 12/18/19 21:00 01/14/20 20:59 12/23/19 08:53 Potassium Chloride (K-Dur) 20 meq TWICE A DAY ORAL 12/18/19 18:00 03/15/20 17:59 12/23/19 08:52 Valproic Acid (Depakene) 500 mg EVERY 12 HOURS NG 12/18/19 23:15 01/17/20 23:14 12/23/19 08:53 Vancomycin HCl (Vanco rx to dose) 1 ea DAILY PRN MISC Per rx protocol 12/19/19 12:00 01/18/20 11:59 Vancomycin HCl 750 mg/Sodium Chloride 275 ml @ 183.708 mls/hr Q12HR@0200,1400 IVPB 12/22/19 14:00 12/27/19 13:59 12/23/19 01:45 Boby Toledo MD 12/24/19 1700: Assessment/Plan Assessment/Plan Patient seen and examined, d/w RN and team, agree with plan as outlined about by TOWN MANAGER, reflects out joint assessment. Subjective Allergies: Coded Allergies: MEMANTINE (Unverified Allergy, Unknown, 12/15/19) SERTRALINE (Unverified Allergy, Unknown, 12/15/19) Marge Gutierrez NP Dec 23, 2019 09:34 Boby Toledo MD Dec 24, 2019 17:00
[2019-12-23 12:00] VITALS: BP 130/78
--- NOTE | 2019-12-23 12:37 | Nephrology Progress Note ---
Assessment/Plan Problem List: (1) ROSARIO (acute kidney injury) (2) Dehydration (3) Electrolyte imbalance (4) NSTEMI (non-ST elevated myocardial infarction) Assessment Acute renal failure Severe dehydration Hypernatremia indicative of free water depletion Hypercalcemia likely due to dehydration Elevated hemoglobin likely secondary to hemoconcentration Elevated troponin Poor p.o. intake / failure to thrive Dementia Hypertension Exposure to COVID-19 Plan Covid19 test positive Today's lab results reviewed IV fluid adjusted Aspirin 2D echocardiogram, results still pending IV Protonix Nitropaste Avoid nephrotoxic's Monitor renal parameters Monitor hemoglobin hematocrit Avoid mind altering medication in view of severe lethargy Per orders Subjective ROS Limited/Unobtainable: No Constitutional: Reports: malaise, weakness Objective Objective Last 24 Hour Vital Signs Date Time Temp Pulse Resp B/P (MAP) Pulse Ox O2 Delivery O2 Flow Rate FiO2 12/23/19 08:00 99.9 86 18 128/73 (91) 96 12/23/19 08:00 Room Air 12/23/19 07:50 85 12/23/19 04:00 98.1 96 26 149/92 (111) 98 12/23/19 04:00 85 12/23/19 04:00 Room Air 12/23/19 00:00 97.8 96 19 139/76 (97) 96 12/23/19 00:00 Room Air 12/23/19 00:00 89 12/22/19 20:00 98.1 78 17 148/71 (96) 98 12/22/19 20:00 Room Air 12/22/19 19:10 77 12/22/19 16:00 Nasal Cannula 2.0 12/22/19 16:00 98.1 78 20 138/72 (94) 96 12/22/19 16:00 78 12/22/19 14:18 129/76 Intake and Output 12/22/19 12/23/19 19:00 07:00 Intake Total 540 ml 615.000 ml Output Total 300 ml Balance 240 ml 615.000 ml Intake Free Water 300 ml 200 ml IV Total 275.000 ml Tube Feeding 240 ml 140 ml Output Urine Total 300 ml Laboratory Tests 12/23/19 02:50: White Blood Count 9.9, Red Blood Count 3.78L, Hemoglobin 12.0, Hematocrit 34.5L , Mean Corpuscular Volume 91, Mean Corpuscular Hemoglobin 31.7H, Mean Corpuscular Hemoglobin Concent 34.7, Red Cell Distribution Width 12.1, Platelet Count 198, Mean Platelet Volume 7.1, Neutrophils (%) (Auto) 66.6, Lymphocytes (% ) (Auto) 23.2, Monocytes (%) (Auto) 8.9, Eosinophils (%) (Auto) 0.8, Basophils ( %) (Auto) 0.4, Sodium Level 142, Potassium Level 4.3, Chloride Level 107, Carbon Dioxide Level 26, Anion Gap 9, Blood Urea Nitrogen 14, Creatinine 0.9, Estimat Glomerular Filtration Rate > 60, Glucose Level 102, Calcium Level 8.7, Phosphorus Level 3.2, Magnesium Level 2.0, Total Bilirubin 0.2, Aspartate Amino Transf (AST/SGOT) 26, Alanine Aminotransferase (ALT/SGPT) 28, Alkaline Phosphatase 153H, C-Reactive Protein, Quantitative 9.9H, Pro-B-Type Natriuretic Peptide 779H, Total Protein 6.5, Albumin 1.8L, Globulin 4.7, Albumin/Globulin Ratio 0.4L Height (Feet): 5 Height (Inches): 0.00 Weight (Pounds): 148 General Appearance: no apparent distress Cardiovascular: tachycardia Respiratory/Chest: decreased breath sounds Abdomen: soft Objective No change Robert Foreman MD Dec 23, 2019 12:37
[2019-12-23] MEDS: Nitroglycerin Patch 0.4mg TDERMAL SCH (13:30)
--- NOTE | 2019-12-23 15:26 | Infectious Diseases Prog Note ---
Assessment/Plan Problems: (1) Sepsis Assessment & Plan: with Staphylococcus epidermidis source ? continue vancomycin for two weeks, repeat blood culture to confirm clearance (2) COVID-19 virus infection Assessment & Plan: keep in enhanced droplet isolation, S/P hydroxychloroquin with zinc and vitamin C for five days total. (3) Viral pneumonia Assessment & Plan: due to COVID 19, S/P hydroxychloroquine , with zinc and vitamin C for five days, Repeated PCR test is pending (4) ROSARIO (acute kidney injury) Assessment & Plan: suspect due to dehydration and poor oral intake improving monitor renal function avoid nephrotoxic's (5) Dehydration Assessment & Plan: continue IV fluid for hydration with close monitoring of sodium level (6) NSTEMI (non-ST elevated myocardial infarction) Assessment & Plan: could be due to COVID 19, cardiology is following monitor troponin level Subjective ROS Limited/Unobtainable: Yes Allergies: Coded Allergies: MEMANTINE (Unverified Allergy, Unknown, 12/15/19) SERTRALINE (Unverified Allergy, Unknown, 12/15/19) Subjective she was resting in bed in SDU, had no fever today, no SOB, confused , receiving meds though NGT , no agitation Objective Vital Signs Last 24 Hour Vital Signs Date Time Temp Pulse Resp B/P (MAP) Pulse Ox O2 Delivery O2 Flow Rate FiO2 12/23/19 13:30 145/61 12/23/19 12:00 97.7 97 19 130/78 (95) 97 12/23/19 12:00 Room Air 12/23/19 11:27 81 12/23/19 08:00 99.9 86 18 128/73 (91) 96 12/23/19 08:00 Room Air 12/23/19 07:50 85 12/23/19 04:00 98.1 96 26 149/92 (111) 98 12/23/19 04:00 85 12/23/19 04:00 Room Air 12/23/19 00:00 97.8 96 19 139/76 (97) 96 12/23/19 00:00 Room Air 12/23/19 00:00 89 12/22/19 20:00 98.1 78 17 148/71 (96) 98 12/22/19 20:00 Room Air 12/22/19 19:10 77 4/22/20 16:00 Nasal Cannula 2.0 12/22/19 16:00 98.1 78 20 138/72 (94) 96 12/22/19 16:00 78 Height (Feet): 5 Height (Inches): 0.00 Weight (Pounds): 148 General Appearance: WD/WN, no acute distress HEENT: normocephalic, atraumatic, anicteric, mucous membranes moist, PERRL Respiratory/Chest: chest wall non-tender, lungs clear, normal breath sounds, no respiratory distress, no accessory muscle use Cardiovascular: normal peripheral pulses, normal rate, regular rhythm, no gallop/murmur, no JVD Abdomen: normal bowel sounds, soft, non tender, no organomegaly, non distended , no mass, no scars Genitourinary: normal external genitalia Extremities: no cyanosis, no clubbing Skin: no rash, no lesions 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: unresponsiveness Lymphatic: no neck adenopathy, no groin adenopathy Musculoskeletal: normal muscle bulk, no effusion Microbiology Date/Time Source Procedure Growth Status 12/21/19 17:40 Blood Blood Culture - Preliminary Resulted 12/21/19 17:25 Blood Blood Culture - Preliminary NO GROWTH AFTER 24 HOURS Resulted Laboratory Tests Test 12/23/19 02:50 White Blood Count 9.9 K/UL (4.8-10.8) Red Blood Count 3.78 M/UL (4.20-5.40) L Hemoglobin 12.0 G/DL (12.0-16.0) Hematocrit 34.5 % (37.0-47.0) L Mean Corpuscular Volume 91 FL (80-99) Mean Corpuscular Hemoglobin 31.7 PG (27.0-31.0) H Mean Corpuscular Hemoglobin Concent 34.7 G/DL (32.0-36.0) Red Cell Distribution Width 12.1 % (11.6-14.8) Platelet Count 198 K/UL (150-450) Mean Platelet Volume 7.1 FL (6.5-10.1) Neutrophils (%) (Auto) 66.6 % (45.0-75.0) Lymphocytes (%) (Auto) 23.2 % (20.0-45.0) Monocytes (%) (Auto) 8.9 % (1.0-10.0) Eosinophils (%) (Auto) 0.8 % (0.0-3.0) Basophils (%) (Auto) 0.4 % (0.0-2.0) Sodium Level 142 MMOL/L (136-145) Potassium Level 4.3 MMOL/L (3.5-5.1) Chloride Level 107 MMOL/L (98-107) Carbon Dioxide Level 26 MMOL/L (21-32) Anion Gap 9 mmol/L (5-15) Blood Urea Nitrogen 14 mg/dL (7-18) Creatinine 0.9 MG/DL (0.55-1.30) Estimat Glomerular Filtration Rate > 60 mL/min (>60) Glucose Level 102 MG/DL (74-106) Calcium Level 8.7 MG/DL (8.5-10.1) Phosphorus Level 3.2 MG/DL (2.5-4.9) Magnesium Level 2.0 MG/DL (1.8-2.4) Total Bilirubin 0.2 MG/DL (0.2-1.0) Aspartate Amino Transf (AST/SGOT) 26 U/L (15-37) Alanine Aminotransferase (ALT/SGPT) 28 U/L (12-78) Alkaline Phosphatase 153 U/L (46-116) H C-Reactive Protein, Quantitative 9.9 mg/dL (0.00-0.90) H Pro-B-Type Natriuretic Peptide 779 pg/mL (0-125) H Total Protein 6.5 G/DL (6.4-8.2) Albumin 1.8 G/DL (3.4-5.0) L Globulin 4.7 g/dL Albumin/Globulin Ratio 0.4 (1.0-2.7) L Current Medications Medications (Trade) Dose Ordered Sig/Ovi Route PRN Reason Start Time Stop Time Status Last Admin Dose Admin Aspirin (ASA) 81 mg DAILY NG 12/19/19 09:00 02/02/20 08:59 12/23/19 08:52 Atorvastatin Calcium (Lipitor) 20 mg BEDTIME ORAL 12/19/19 21:00 03/18/20 20:59 12/22/19 21:20 Heparin Sodium (Porcine) (Heparin 5000 units/ml) 5,000 units EVERY 12 HOURS SUBQ 12/19/19 21:00 02/02/20 20:59 4/23/20 08:52 Nitroglycerin (Ntg) 1 patch Q24H TDERMAL 12/19/19 14:00 01/14/20 13:59 12/23/19 13:30 Pantoprazole (Protonix) 40 mg Q12HR IVP 12/18/19 21:00 01/14/20 20:59 12/23/19 08:53 Potassium Chloride (K-Dur) 20 meq TWICE A DAY ORAL 12/18/19 18:00 03/15/20 17:59 12/23/19 08:52 Valproic Acid (Depakene) 500 mg EVERY 12 HOURS NG 12/18/19 23:15 01/17/20 23:14 12/23/19 08:53 Vancomycin HCl (Vanco rx to dose) 1 ea DAILY PRN MISC Per rx protocol 12/19/19 12:00 01/18/20 11:59 Vancomycin HCl 750 mg/Sodium Chloride 275 ml @ 183.708 mls/hr Q12HR@0200,1400 IVPB 12/22/19 14:00 12/27/19 13:59 12/23/19 13:28 Sukhjinder Howell M.D. Dec 23, 2019 15:26
[2019-12-23 16:00] VITALS: BP 134/81
--- NOTE | 2019-12-23 19:16 | Cardiology Progress Note ---
Assessment/Plan Assessment/Plan 1. [id number] myocardial infarction,related to demand vs from covid induced myonecrosis , doubt plaque rupture or cytokine storm 2. Acute renal failure in the setting of volume depletion. 3. Hypernatremia secondary to volume depletion. 4. 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 5. Dementia. 6. Lactic acidosis. 7. History of bradycardia secondary to medications. 8. bacteremia trop trending down no fever covid status postitive off hepearin iv on sq herparin for dvt ppx echo not performed as covid + on sdu now tele sinus sats are fine on ecotrin and statin on feeding on iv vanco planned for 2 weeks hemodynamically stable for the moment Subjective ROS Limited/Unobtainable: Yes Subjective per rn no cough no fever no vomit confused, , still yell bu t nto pull out any of keira tube or iv even without a restraitn perrn no diarrhea Objective Last 24 Hour Vital Signs Date Time Temp Pulse Resp B/P (MAP) Pulse Ox O2 Delivery O2 Flow Rate FiO2 12/23/19 16:00 97.9 82 19 134/81 (98) 96 12/23/19 16:00 79 12/23/19 16:00 Room Air 12/23/19 13:30 145/61 12/23/19 12:00 97.7 97 19 130/78 (95) 97 12/23/19 12:00 Room Air 12/23/19 11:27 81 12/23/19 08:00 99.9 86 18 128/73 (91) 96 12/23/19 08:00 Room Air 12/23/19 07:50 85 12/23/19 04:00 98.1 96 26 149/92 (111) 98 12/23/19 04:00 85 12/23/19 04:00 Room Air 12/23/19 00:00 97.8 96 19 139/76 (97) 96 12/23/19 00:00 Room Air 12/23/19 00:00 89 12/22/19 20:00 98.1 78 17 148/71 (96) 98 12/22/19 20:00 Room Air General Appearance: no apparent distress, patient on isolation, isolation precautions Intake and Output 12/22/19 12/23/19 19:00 07:00 Intake Total 540 ml 615.000 ml Output Total 300 ml Balance 240 ml 615.000 ml Intake Free Water 300 ml 200 ml IV Total 275.000 ml Tube Feeding 240 ml 140 ml Output Urine Total 300 ml Laboratory Tests Test 12/23/19 02:50 White Blood Count 9.9 K/UL (4.8-10.8) Red Blood Count 3.78 M/UL (4.20-5.40) L Hemoglobin 12.0 G/DL (12.0-16.0) Hematocrit 34.5 % (37.0-47.0) L Mean Corpuscular Volume 91 FL (80-99) Mean Corpuscular Hemoglobin 31.7 PG (27.0-31.0) H Mean Corpuscular Hemoglobin Concent 34.7 G/DL (32.0-36.0) Red Cell Distribution Width 12.1 % (11.6-14.8) Platelet Count 198 K/UL (150-450) Mean Platelet Volume 7.1 FL (6.5-10.1) Neutrophils (%) (Auto) 66.6 % (45.0-75.0) Lymphocytes (%) (Auto) 23.2 % (20.0-45.0) Monocytes (%) (Auto) 8.9 % (1.0-10.0) Eosinophils (%) (Auto) 0.8 % (0.0-3.0) Basophils (%) (Auto) 0.4 % (0.0-2.0) Sodium Level 142 MMOL/L (136-145) Potassium Level 4.3 MMOL/L (3.5-5.1) Chloride Level 107 MMOL/L (98-107) Carbon Dioxide Level 26 MMOL/L (21-32) Anion Gap 9 mmol/L (5-15) Blood Urea Nitrogen 14 mg/dL (7-18) Creatinine 0.9 MG/DL (0.55-1.30) Estimat Glomerular Filtration Rate > 60 mL/min (>60) Glucose Level 102 MG/DL (74-106) Calcium Level 8.7 MG/DL (8.5-10.1) Phosphorus Level 3.2 MG/DL (2.5-4.9) Magnesium Level 2.0 MG/DL (1.8-2.4) Total Bilirubin 0.2 MG/DL (0.2-1.0) Aspartate Amino Transf (AST/SGOT) 26 U/L (15-37) Alanine Aminotransferase (ALT/SGPT) 28 U/L (12-78) Alkaline Phosphatase 153 U/L (46-116) H C-Reactive Protein, Quantitative 9.9 mg/dL (0.00-0.90) H Pro-B-Type Natriuretic Peptide 779 pg/mL (0-125) H Total Protein 6.5 G/DL (6.4-8.2) Albumin 1.8 G/DL (3.4-5.0) L Globulin 4.7 g/dL Albumin/Globulin Ratio 0.4 (1.0-2.7) L Microbiology Date/Time Source Procedure Growth Status 12/21/19 17:40 Blood Blood Culture - Preliminary Resulted 12/21/19 17:25 Blood Blood Culture - Preliminary NO GROWTH AFTER 24 HOURS Resulted Kendell Rosen MD Dec 23, 2019 19:16
[2019-12-23 20:00] VITALS: BP 145/61
[2019-12-23] MEDS: Atorvastatin 20mg tab ORAL SCH (22:05)
[2019-12-24] VITALS (7 sets, daily range): BP systolic 116–151; BP diastolic 65–79
[2019-12-24] MEDS: Vancomycin 750 MG in NS 275 ML IVPB SCH ×3 (03:05→18:24)
--- NOTE | 2019-12-24 09:11 | Pulmonology Progress Note ---
Marge Gutierrez [employer] 12/24/19 0911: Assessment/Plan Assessment/Plan PROBLEMS (1) COVID-19 virus infection (2) Viral pneumonia (3) Electrolyte imbalance (4) NSTEMI (non-ST elevated myocardial infarction) (5) Encephalopathy (6) Dehydration (7) ROSARIO (acute kidney injury) (8) Staphylococcus epidermidis bacteremia Assessment/Plan Confirmed CoVID 19 infection Acute hypoxemic respiratory failure S epidermis BSI Acute renal failure - RESOLVED Severe dehydration - IMPROVED Hypernatremia indicative of free water depletion Hypercalcemia likely due to dehydration Elevated hemoglobin likely secondary to hemoconcentration Elevated troponin/NSTEMI Poor p.o. intake / failure to thrive Dementia Hypertension Exposure to COVID-19 Generalized anxiety disorder Plan: * COVID-19 isolation status, confirmed 12/14, check repeat COVID 12/21=pending * Monitor oxygenation closely, only on 1-2L nasal cannula * CXR prn worsening symptoms, last CXR 12/16 clear lungs * Vanco per ID, F/U Cx's, repeated BCXx 2 on 12/20 prelim with Staph species * Completed 5 days of Plaquenil * s/p IVF , nephro on board * Monitor electrolytes and renal parameters * TTE when off isolation * NPO, NGTF's, SL[facility] PULLER eval (once off ISO), not ready for swallow eval yet * Cont depakote 500 mg bid from SNF * DVT ppx: heparin SQ * Full Code per prior documented ECP notes - will D/W family Prophylaxis: Heparin SQ Disposition: downgrade to tele Time Spent (Minutes): 35 Notes Reviewed: cardio, renal, ID Discussed with: nurses, consultants case discussed and evaluated by supervising physician Subjective ROS Limited/Unobtainable: Yes Interval Events: Allergies: Coded Allergies: MEMANTINE (Unverified Allergy, Unknown, 12/15/19) SERTRALINE (Unverified Allergy, Unknown, 12/15/19) Subjective another SARS- CoV -2 by PCR pending creat stable no fevers trop flat Objective Last 24 Hour Vital Signs Date Time Temp Pulse Resp B/P (MAP) Pulse Ox O2 Delivery O2 Flow Rate FiO2 12/24/19 04:00 90 12/24/19 04:00 Room Air 12/24/19 04:00 97.4 91 20 151/70 (97) 97 4/24/20 00:00 97.7 90 17 149/65 (93) 94 12/24/19 00:00 Room Air 12/24/19 00:00 90 12/23/19 20:00 Room Air 12/23/19 20:00 97.7 92 19 145/61 (89) 97 12/23/19 16:00 97.9 82 19 134/81 (98) 96 12/23/19 16:00 79 12/23/19 16:00 Room Air 12/23/19 13:30 145/61 12/23/19 12:00 97.7 97 19 130/78 (95) 97 12/23/19 12:00 Room Air 12/23/19 11:27 81 Intake and Output 12/23/19 12/24/19 19:00 07:00 Intake Total 825 ml 845.000 ml Output Total 500 ml Balance 825 ml 345.000 ml Intake Free Water 200 ml 300 ml IV Total 275 ml 275.000 ml Tube Feeding 350 ml 270 ml Output Urine Total 500 ml # Voids 1 Objective General Appearance: WD/WN, no acute distress elderly female HEENT: normocephalic, atraumatic, anicteric, mucous membranes moist, PERRL, NGT Respiratory/Chest: few scattered rhonchi Cardiovascular: normal peripheral pulses, normal rate, regular rhythm Abdomen: normal bowel sounds, soft, non tender, no organomegaly, non distended , no mass, no scars Genitourinary: normal external genitalia Extremities: no cyanosis, no clubbing Skin: no rash, no lesions, no ulcers 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: taker away II-XII grossly normal, alert, not- responsiveness Lymphatic: no neck adenopathy, no groin adenopathy Musculoskeletal: normal muscle bulk, no effusion 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: unresponsiveness Lymphatic: no groin adenopathy Microbiology Date/Time Source Procedure Growth Status 12/21/19 17:40 Blood Blood Culture - Preliminary Staphylococcus Species Resulted 12/21/19 17:25 Blood Blood Culture - Preliminary NO GROWTH AFTER 48 HOURS Resulted Laboratory Tests 12/24/19 01:21: Vancomycin Level Trough 11.5 Current Medications Medications (Trade) Dose Ordered Sig/Ovi Route PRN Reason Start Time Stop Time Status Last Admin Dose Admin Aspirin (ASA) 81 mg DAILY NG 12/19/19 09:00 02/02/20 08:59 12/23/19 08:52 Atorvastatin Calcium (Lipitor) 20 mg BEDTIME ORAL 12/19/19 21:00 03/18/20 20:59 12/23/19 22:05 Heparin Sodium (Porcine) (Heparin 5000 units/ml) 5,000 units EVERY 12 HOURS SUBQ 12/19/19 21:00 02/02/20 20:59 12/23/19 22:12 Nitroglycerin (Ntg) 1 patch Q24H TDERMAL 12/19/19 14:00 01/14/20 13:59 12/23/19 13:30 Pantoprazole (Protonix) 40 mg Q12HR IVP 12/18/19 21:00 01/14/20 20:59 12/23/19 22:04 Potassium Chloride (K-Dur) 20 meq TWICE A DAY ORAL 12/18/19 18:00 03/15/20 17:59 12/23/19 17:36 Valproic Acid (Depakene) 500 mg EVERY 12 HOURS NG 12/18/19 23:15 01/17/20 23:14 12/23/19 22:04 Vancomycin HCl (Vanco rx to dose) 1 ea DAILY PRN MISC Per rx protocol 12/19/19 12:00 01/18/20 11:59 Vancomycin HCl 750 mg/Sodium Chloride 275 ml @ 183.708 mls/hr Q8H IVPB 12/24/19 02:00 12/29/19 01:59 12/24/19 03:05 Boby Toledo MD 12/24/19 1700: Assessment/Plan Assessment/Plan Patient seen and examined, d/w RN and team, agree with plan as outlined about by [employer], reflects out joint assessment. Subjective Allergies: Coded Allergies: MEMANTINE (Unverified Allergy, Unknown, 12/15/19) SERTRALINE (Unverified Allergy, Unknown, 12/15/19) Marge Gutierrez NP Dec 24, 2019 09:11 Boby Toledo MD Dec 24, 2019 17:00
[2019-12-24] MEDS: Pantoprazole Inj IVP SCH ×2 (09:22→21:08)
[2019-12-24] MEDS: Aspirin Baby 81mg NG SCH (09:23)
[2019-12-24] MEDS: Valproic Acid 250mg/5ml Liquid NG SCH ×2 (09:23→21:08)
[2019-12-24] MEDS: Heparin 5000 units/ml inj SUBQ SCH ×2 (09:36→21:09)
--- NOTE | 2019-12-24 11:36 | Nephrology Progress Note ---
Assessment/Plan Problem List: (1) ROSARIO (acute kidney injury) (2) Dehydration (3) Electrolyte imbalance (4) NSTEMI (non-ST elevated myocardial infarction) Assessment Acute renal failure Severe dehydration Hypernatremia indicative of free water depletion Hypercalcemia likely due to dehydration Elevated hemoglobin likely secondary to hemoconcentration Elevated troponin Poor p.o. intake / failure to thrive Dementia Hypertension Exposure to COVID-19 Plan Covid19 test positive No chemistry blood work for today IV fluid adjusted Aspirin 2D echocardiogram, results still pending IV Protonix Nitropaste Avoid nephrotoxic's Monitor renal parameters Monitor hemoglobin hematocrit Avoid mind altering medication in view of severe lethargy Per orders Subjective ROS Limited/Unobtainable: No Constitutional: Reports: malaise, weakness Objective Objective Last 24 Hour Vital Signs Date Time Temp Pulse Resp B/P (MAP) Pulse Ox O2 Delivery O2 Flow Rate FiO2 12/24/19 04:00 90 12/24/19 04:00 Room Air 12/24/19 04:00 97.4 91 20 151/70 (97) 97 12/24/19 00:00 97.7 90 17 149/65 (93) 94 12/24/19 00:00 Room Air 12/24/19 00:00 90 12/23/19 20:00 Room Air 12/23/19 20:00 97.7 92 19 145/61 (89) 97 12/23/19 16:00 97.9 82 19 134/81 (98) 96 12/23/19 16:00 79 12/23/19 16:00 Room Air 12/23/19 13:30 145/61 12/23/19 12:00 97.7 97 19 130/78 (95) 97 12/23/19 12:00 Room Air Intake and Output 12/23/19 12/24/19 19:00 07:00 Intake Total 825 ml 845.000 ml Output Total 500 ml Balance 825 ml 345.000 ml Intake Free Water 200 ml 300 ml IV Total 275 ml 275.000 ml Tube Feeding 350 ml 270 ml Output Urine Total 500 ml # Voids 1 Laboratory Tests 12/24/19 01:21: Vancomycin Level Trough 11.5 Height (Feet): 5 Height (Inches): 0.00 Weight (Pounds): 150 General Appearance: no apparent distress Respiratory/Chest: decreased breath sounds Abdomen: soft Objective No change Fouladian,Robert MD Dec 24, 2019 11:36
--- NOTE | 2019-12-24 12:16 | Cardiology Progress Note ---
Assessment/Plan Assessment/Plan 1. [id number] myocardial infarction,related to demand vs from covid induced myonecrosis , doubt plaque rupture or cytokine storm 2. Acute renal failure in the setting of volume depletion. 3. Hypernatremia secondary to volume depletion. 4. 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 5. Dementia. 6. Lactic acidosis. 7. History of bradycardia secondary to medications. 8. bacteremia no fever covid status postitive off heparin iv on sq herparin for dvt ppx echo not performed as covid + on sdu now tele sinus no afib or pauses sats are fine on ecotrin and statin on feeding on iv vanco planned for 2 weeks hemodynamically stable for the moment Subjective ROS Limited/Unobtainable: Yes Subjective per rn no cough no fever no vomit confused, , still yell bu t nto pull out any of keira tube or iv even without a restraitn perrn no diarrhea Objective Last 24 Hour Vital Signs Date Time Temp Pulse Resp B/P (MAP) Pulse Ox O2 Delivery O2 Flow Rate FiO2 12/24/19 04:00 90 12/24/19 04:00 Room Air 12/24/19 04:00 97.4 91 20 151/70 (97) 97 12/24/19 00:00 97.7 90 17 149/65 (93) 94 12/24/19 00:00 Room Air 12/24/19 00:00 90 12/23/19 20:00 Room Air 12/23/19 20:00 97.7 92 19 145/61 (89) 97 12/23/19 16:00 97.9 82 19 134/81 (98) 96 12/23/19 16:00 79 12/23/19 16:00 Room Air 12/23/19 13:30 145/61 General Appearance: no apparent distress, patient on isolation, isolation precautions Intake and Output 12/23/19 12/24/19 19:00 07:00 Intake Total 825 ml 845.000 ml Output Total 500 ml Balance 825 ml 345.000 ml Intake Free Water 200 ml 300 ml IV Total 275 ml 275.000 ml Tube Feeding 350 ml 270 ml Output Urine Total 500 ml # Voids 1 Laboratory Tests Test 12/24/19 01:21 Vancomycin Level Trough 11.5 ug/mL (5.0-12.0) Microbiology Date/Time Source Procedure Growth Status 12/21/19 17:40 Blood Blood Culture - Preliminary Staphylococcus Species Resulted 12/21/19 17:25 Blood Blood Culture - Preliminary NO GROWTH AFTER 48 HOURS Resulted Kendell Rosen MD Dec 24, 2019 12:16
[2019-12-24] MEDS: Nitroglycerin Patch 0.4mg TDERMAL SCH (15:55)
--- NOTE | 2019-12-24 21:04 | Infectious Diseases Prog Note ---
Assessment/Plan Problems: (1) Sepsis Assessment & Plan: with Staphylococcus epidermidis source ? continue vancomycin for two weeks, repeated blood culture is growing staph spp from one bottle , possible contaminants (2) COVID-19 virus infection Assessment & Plan: keep in enhanced droplet isolation, S/P hydroxychloroquin with zinc and vitamin C for five days total. (3) Viral pneumonia Assessment & Plan: due to COVID 19, S/P hydroxychloroquine , with zinc and vitamin C for five days, Repeated PCR test is pending (4) ROSARIO (acute kidney injury) Assessment & Plan: suspect due to dehydration and poor oral intake improving monitor renal function avoid nephrotoxic's (5) NSTEMI (non-ST elevated myocardial infarction) Assessment & Plan: could be due to COVID 19, cardiology is following monitor troponin level Subjective ROS Limited/Unobtainable: Yes Allergies: Coded Allergies: MEMANTINE (Unverified Allergy, Unknown, 12/15/19) SERTRALINE (Unverified Allergy, Unknown, 12/15/19) Subjective she was resting in bed in SDU, had no fever today, no SOB, confused , receiving meds though NGT , no agitation , sating well on room air Objective Vital Signs Last 24 Hour Vital Signs Date Time Temp Pulse Resp B/P (MAP) Pulse Ox O2 Delivery O2 Flow Rate FiO2 12/24/19 16:00 Room Air 12/24/19 16:00 97.8 92 19 121/76 (91) 95 12/24/19 16:00 78 12/24/19 15:55 122/95 12/24/19 14:00 97.8 89 18 116/71 (86) 96 12/24/19 12:00 97.9 84 18 127/79 (95) 97 12/24/19 12:00 76 12/24/19 12:00 Room Air 12/24/19 08:00 86 12/24/19 08:00 Room Air 12/24/19 08:00 98.1 82 18 131/74 (93) 96 12/24/19 04:00 90 12/24/19 04:00 Room Air 12/24/19 04:00 97.4 91 20 151/70 (97) 97 12/24/19 00:00 97.7 90 17 149/65 (93) 94 12/24/19 00:00 Room Air 12/24/19 00:00 90 Height (Feet): 5 Height (Inches): 0.00 Weight (Pounds): 150 General Appearance: WD/WN, no acute distress HEENT: normocephalic, atraumatic, anicteric, mucous membranes moist, PERRL Respiratory/Chest: chest wall non-tender, lungs clear, normal breath sounds, no respiratory distress, no accessory muscle use Cardiovascular: normal peripheral pulses, normal rate, regular rhythm, no gallop/murmur, no JVD Abdomen: normal bowel sounds, soft, non tender, no organomegaly, non distended , no mass, no scars Genitourinary: normal external genitalia Extremities: no cyanosis, no clubbing Skin: no rash, no lesions 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: unresponsiveness Lymphatic: no neck adenopathy, no groin adenopathy Laboratory Tests Test 12/24/19 01:21 Vancomycin Level Trough 11.5 ug/mL (5.0-12.0) Current Medications Medications (Trade) Dose Ordered Sig/Ovi Route PRN Reason Start Time Stop Time Status Last Admin Dose Admin Aspirin (ASA) 81 mg DAILY NG 12/19/19 09:00 02/02/20 08:59 12/24/19 09:23 Atorvastatin Calcium (Lipitor) 20 mg BEDTIME ORAL 12/19/19 21:00 03/18/20 20:59 12/23/19 22:05 Heparin Sodium (Porcine) (Heparin 5000 units/ml) 5,000 units EVERY 12 HOURS SUBQ 12/19/19 21:00 02/02/20 20:59 12/24/19 09:36 Nitroglycerin (Ntg) 1 patch Q24H TDERMAL 12/19/19 14:00 01/14/20 13:59 12/24/19 15:55 Pantoprazole (Protonix) 40 mg Q12HR IVP 12/18/19 21:00 01/14/20 20:59 12/24/19 09:22 Potassium Chloride (K-Dur) 20 meq TWICE A DAY ORAL 12/18/19 18:00 03/15/20 17:59 12/24/19 18:24 Valproic Acid (Depakene) 500 mg EVERY 12 HOURS NG 12/18/19 23:15 01/17/20 23:14 12/24/19 09:23 Vancomycin HCl (Vanco rx to dose) 1 ea DAILY PRN MISC Per rx protocol 12/19/19 12:00 01/18/20 11:59 Vancomycin HCl 750 mg/Sodium Chloride 275 ml @ 183.708 mls/hr Q8H IVPB 12/24/19 02:00 12/29/19 01:59 12/24/19 18:24 Sukhjinder Howell M.D. Dec 24, 2019 21:04
[2019-12-24] MEDS: Atorvastatin 20mg tab ORAL SCH (21:08)
[2019-12-25] VITALS: BP 156/66
[2019-12-25] MEDS: Vancomycin 750 MG in NS 275 ML IVPB SCH ×3 (02:03→19:45)
[2019-12-25 04:00] VITALS: BP 134/76
[2019-12-25 04:11] LABS: BASOPHILS % (AUTO) 0.4 % (0.0-2.0); EOSINOPHILS % (AUTO) 0.4 % (0.0-3.0); HEMATOCRIT 34.9 % (37.0-47.0); HEMOGLOBIN 11.9 G/DL (12.0-16.0); MEAN CORPUSCULAR VOLUME 93 FL (80-99); MONOCYTES % (AUTO) 8.1 % (1.0-10.0); NEUTROPHILS % (AUTO) 71.1 % (45.0-75.0); PLATELET COUNT 195 K/UL (150-450); RED BLOOD COUNT 3.75 M/UL (4.20-5.40); RED CELL DISTRIBUTION WIDTH 12.4 % (11.6-14.8); WHITE BLOOD COUNT 11.5 K/UL (4.8-10.8)
[2019-12-25 04:45] LABS: ALANINE AMINOTRANSFERASE 30 U/L (12-78); ALBUMIN 1.5 G/DL (3.4-5.0); ALBUMIN/GLOBULIN RATIO 0.3 (1.0-2.7); ALKALINE PHOSPHATASE 146 U/L (46-116); ANION GAP 11 mmol/L (5-15); ASPARTATE AMINO TRANSFERASE 36 U/L (15-37); BILIRUBIN,TOTAL 0.2 MG/DL (0.2-1.0); BLOOD UREA NITROGEN 17 mg/dL (7-18); CALCIUM 8.7 MG/DL (8.5-10.1); CARBON DIOXIDE 26 MMOL/L (21-32); CHLORIDE 111 MMOL/L (98-107); CREATININE 0.8 MG/DL (0.55-1.30); PHOSPHORUS 3.5 MG/DL (2.5-4.9); POTASSIUM 4.3 MMOL/L (3.5-5.1); SODIUM 148 MMOL/L (136-145)
[2019-12-25 08:00] VITALS: BP 155/60
[2019-12-25] MEDS: Heparin 5000 units/ml inj SUBQ SCH ×2 (09:08→21:58)
[2019-12-25] MEDS: Aspirin Baby 81mg NG SCH (09:10)
[2019-12-25] MEDS: Valproic Acid 250mg/5ml Liquid NG SCH ×2 (09:10→21:57)
[2019-12-25] MEDS: Pantoprazole Inj IVP SCH ×2 (09:10→21:57)
--- NOTE | 2019-12-25 09:54 | Pulmonology Progress Note ---
Marge Gutierrez [employer] 12/25/19 0954: Assessment/Plan Assessment/Plan PROBLEMS (1) COVID-19 virus infection (2) Viral pneumonia (3) Electrolyte imbalance (4) NSTEMI (non-ST elevated myocardial infarction) (5) Encephalopathy (6) Dehydration (7) ROSARIO (acute kidney injury) (8) Staphylococcus epidermidis bacteremia Assessment/Plan Confirmed CoVID 19 infection Acute hypoxemic respiratory failure S epidermis BSI Acute renal failure - RESOLVED Severe dehydration - IMPROVED Hypernatremia indicative of free water depletion Hypercalcemia likely due to dehydration Elevated hemoglobin likely secondary to hemoconcentration Elevated troponin/NSTEMI Poor p.o. intake / failure to thrive Dementia Hypertension Exposure to COVID-19 Generalized anxiety disorder Plan: * COVID-19 isolation status, confirmed 12/14, check repeat COVID 12/21-pending * Monitor oxygenation closely, only on 1-2L nasal cannula * CXR prn worsening symptoms, last CXR 12/16 clear lungs * fup with CXR in am given new leukocytosis this am * Vanco per ID, F/U Cx's, repeated BCXx 2 on 12/20 prelim with Staph species * Completed 5 days of Plaquenil * s/p IVF , nephro on board * Monitor electrolytes and renal parameters * TTE when off isolation * NPO, NGTF's, [employer] eval (once off [facility]), not ready for swallow eval yet * Cont depakote 500 mg bid from SNF * DVT ppx: heparin SQ * Full Code per prior documented ECP notes - will D/W family Prophylaxis: Heparin SQ Disposition: downgrade to tele Time Spent (Minutes): 35 Notes Reviewed: cardio, renal, ID Discussed with: nurses, consultants case discussed and evaluated by supervising physician Subjective ROS Limited/Unobtainable: Yes Interval Events: Allergies: Coded Allergies: MEMANTINE (Unverified Allergy, Unknown, 12/15/19) SERTRALINE (Unverified Allergy, Unknown, 12/15/19) Subjective another SARS- CoV -2 by PCR pending creat stable no fevers , mild leukocytosis trop trending down Objective Last 24 Hour Vital Signs Date Time Temp Pulse Resp B/P (MAP) Pulse Ox O2 Delivery O2 Flow Rate FiO2 12/25/19 08:01 81 12/25/19 08:00 Room Air 12/25/19 08:00 98.4 80 20 155/60 (91) 94 12/25/19 04:00 98.0 81 20 134/76 (95) 97 12/25/19 04:00 85 12/25/19 04:00 Room Air 12/25/19 04:00 100 12/25/19 00:00 Room Air 12/25/19 00:00 82 12/25/19 00:00 100 12/25/19 00:00 99.1 83 24 156/66 (96) 98 12/24/19 20:00 72 12/24/19 20:00 97.5 80 19 143/72 (95) 97 12/24/19 20:00 Room Air 12/24/19 16:00 Room Air 12/24/19 16:00 97.8 92 19 121/76 (91) 95 12/24/19 16:00 78 12/24/19 15:55 122/95 12/24/19 14:00 97.8 89 18 116/71 (86) 96 12/24/19 12:00 97.9 84 18 127/79 (95) 97 12/24/19 12:00 76 12/24/19 12:00 Room Air Intake and Output 12/24/19 12/25/19 19:00 07:00 Intake Total 430 ml 310 ml Output Total 800 ml Balance 430 ml -490 ml Intake Free Water 190 ml 90 ml Tube Feeding 240 ml 220 ml Output Urine Total 800 ml Objective General Appearance: WD/WN, no acute distress elderly female HEENT: normocephalic, atraumatic, anicteric, mucous membranes moist, PERRL, NGT Respiratory/Chest: few scattered rhonchi Cardiovascular: normal peripheral pulses, normal rate, regular rhythm Abdomen: normal bowel sounds, soft, non tender, no organomegaly, non distended , no mass, no scars Genitourinary: normal external genitalia Extremities: no cyanosis, no clubbing Skin: no rash, no lesions, no ulcers 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: feed adviser II-XII grossly normal, alert, not- responsiveness Lymphatic: no neck adenopathy, no groin adenopathy Musculoskeletal: normal muscle bulk, no effusion HEENT: mucous membranes moist 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: unresponsiveness Laboratory Tests 12/25/19 01:02: Vancomycin Level Trough 19.8H 12/25/19 03:50: White Blood Count 11.5H, Red Blood Count 3.75L, Hemoglobin 11.9L, Hematocrit 34.9L, Mean Corpuscular Volume 93, Mean Corpuscular Hemoglobin 31.6H, Mean Corpuscular Hemoglobin Concent 34.0, Red Cell Distribution Width 12.4, Platelet Count 195, Mean Platelet Volume 7.1, Neutrophils (%) (Auto) 71.1, Lymphocytes (% ) (Auto) 20.0, Monocytes (%) (Auto) 8.1, Eosinophils (%) (Auto) 0.4, Basophils ( %) (Auto) 0.4, Sodium Level 148H, Potassium Level 4.3, Chloride Level 111H, Carbon Dioxide Level 26, Anion Gap 11, Blood Urea Nitrogen 17, Creatinine 0.8, Estimat Glomerular Filtration Rate > 60, Glucose Level 80, Calcium Level 8.7, Phosphorus Level 3.5, Magnesium Level 2.2, Total Bilirubin 0.2, Aspartate Amino Transf (AST/SGOT) 36, Alanine Aminotransferase (ALT/SGPT) 30, Alkaline Phosphatase 146H, Troponin I 0.810H, C-Reactive Protein, Quantitative 23.5H, Pro -B-Type Natriuretic Peptide 876H, Total Protein 6.7, Albumin 1.5L, Globulin 5.2 , Albumin/Globulin Ratio 0.3L Current Medications Medications (Trade) Dose Ordered Sig/Ovi Route PRN Reason Start Time Stop Time Status Last Admin Dose Admin Aspirin (ASA) 81 mg DAILY NG 12/19/19 09:00 02/02/20 08:59 12/25/19 09:10 Atorvastatin Calcium (Lipitor) 20 mg BEDTIME ORAL 12/19/19 21:00 03/18/20 20:59 12/24/19 21:08 Heparin Sodium (Porcine) (Heparin 5000 units/ml) 5,000 units EVERY 12 HOURS SUBQ 12/19/19 21:00 02/02/20 20:59 12/25/19 09:08 Nitroglycerin (Ntg) 1 patch Q24H TDERMAL 12/19/19 14:00 01/14/20 13:59 12/24/19 15:55 Pantoprazole (Protonix) 40 mg Q12HR IVP 12/18/19 21:00 01/14/20 20:59 12/25/19 09:10 Potassium Chloride (K-Dur) 20 meq TWICE A DAY ORAL 12/18/19 18:00 03/15/20 17:59 12/25/19 09:10 Valproic Acid (Depakene) 500 mg EVERY 12 HOURS NG 12/18/19 23:15 01/17/20 23:14 12/25/19 09:10 Vancomycin HCl (Vanco rx to dose) 1 ea DAILY PRN MISC Per rx protocol 12/19/19 12:00 01/18/20 11:59 Vancomycin HCl 750 mg/Sodium Chloride 275 ml @ 183.708 mls/hr Q8H IVPB 12/24/19 02:00 12/29/19 01:59 12/25/19 09:14 Boby Toledo MD 12/25/19 1950: Assessment/Plan Assessment/Plan Patient seen and examined, d/w [employer]. Agree with above A&P as it reflects our joint reflections. Subjective Allergies: Coded Allergies: MEMANTINE (Unverified Allergy, Unknown, 12/15/19) SERTRALINE (Unverified Allergy, Unknown, 12/15/19) Marge Gutierrez NP Dec 25, 2019 09:54 Boby Toledo MD Dec 25, 2019 19:50
--- NOTE | 2019-12-25 10:13 | Nephrology Progress Note ---
Assessment/Plan Problem List: (1) ROSARIO (acute kidney injury) (2) Dehydration (3) Electrolyte imbalance (4) NSTEMI (non-ST elevated myocardial infarction) Assessment Acute renal failure Severe dehydration Hypernatremia indicative of free water depletion Hypercalcemia likely due to dehydration Elevated hemoglobin likely secondary to hemoconcentration Elevated troponin Poor p.o. intake / failure to thrive Dementia Hypertension Exposure to COVID-19 Plan Covid19 test positive No chemistry blood work for today IV fluid adjusted Aspirin 2D echocardiogram, results still pending IV Protonix Nitropaste Avoid nephrotoxic's Monitor renal parameters Monitor hemoglobin hematocrit Avoid mind altering medication in view of severe lethargy Per orders Subjective ROS Limited/Unobtainable: No Constitutional: Reports: malaise, weakness Objective Objective Last 24 Hour Vital Signs Date Time Temp Pulse Resp B/P (MAP) Pulse Ox O2 Delivery O2 Flow Rate FiO2 12/25/19 08:01 81 12/25/19 08:00 Room Air 12/25/19 08:00 98.4 80 20 155/60 (91) 94 12/25/19 04:00 98.0 81 20 134/76 (95) 97 12/25/19 04:00 85 12/25/19 04:00 Room Air 12/25/19 04:00 100 12/25/19 00:00 Room Air 12/25/19 00:00 82 12/25/19 00:00 100 12/25/19 00:00 99.1 83 24 156/66 (96) 98 12/24/19 20:00 72 12/24/19 20:00 97.5 80 19 143/72 (95) 97 12/24/19 20:00 Room Air 12/24/19 16:00 Room Air 12/24/19 16:00 97.8 92 19 121/76 (91) 95 12/24/19 16:00 78 12/24/19 15:55 122/95 12/24/19 14:00 97.8 89 18 116/71 (86) 96 12/24/19 12:00 97.9 84 18 127/79 (95) 97 12/24/19 12:00 76 12/24/19 12:00 Room Air Intake and Output 12/24/19 12/25/19 19:00 07:00 Intake Total 430 ml 310 ml Output Total 800 ml Balance 430 ml -490 ml Intake Free Water 190 ml 90 ml Tube Feeding 240 ml 220 ml Output Urine Total 800 ml Current Medications Medications (Trade) Dose Ordered Sig/Ovi Route PRN Reason Start Time Stop Time Status Last Admin Dose Admin Aspirin (ASA) 81 mg DAILY NG 12/19/19 09:00 02/02/20 08:59 12/25/19 09:10 Atorvastatin Calcium (Lipitor) 20 mg BEDTIME ORAL 12/19/19 21:00 03/18/20 20:59 12/24/19 21:08 Heparin Sodium (Porcine) (Heparin 5000 units/ml) 5,000 units EVERY 12 HOURS SUBQ 12/19/19 21:00 02/02/20 20:59 12/25/19 09:08 Nitroglycerin (Ntg) 1 patch Q24H TDERMAL 12/19/19 14:00 01/14/20 13:59 12/24/19 15:55 Pantoprazole (Protonix) 40 mg Q12HR IVP 12/18/19 21:00 01/14/20 20:59 12/25/19 09:10 Potassium Chloride (K-Dur) 20 meq TWICE A DAY ORAL 12/18/19 18:00 03/15/20 17:59 12/25/19 09:10 Valproic Acid (Depakene) 500 mg EVERY 12 HOURS NG 12/18/19 23:15 01/17/20 23:14 12/25/19 09:10 Vancomycin HCl (Vanco rx to dose) 1 ea DAILY PRN MISC Per rx protocol 12/19/19 12:00 01/18/20 11:59 Vancomycin HCl 750 mg/Sodium Chloride 275 ml @ 183.708 mls/hr Q8H IVPB 12/24/19 02:00 12/29/19 01:59 12/25/19 09:14 Laboratory Tests 12/25/19 01:02: Vancomycin Level Trough 19.8H 12/25/19 03:50: White Blood Count 11.5H, Red Blood Count 3.75L, Hemoglobin 11.9L, Hematocrit 34.9L, Mean Corpuscular Volume 93, Mean Corpuscular Hemoglobin 31.6H, Mean Corpuscular Hemoglobin Concent 34.0, Red Cell Distribution Width 12.4, Platelet Count 195, Mean Platelet Volume 7.1, Neutrophils (%) (Auto) 71.1, Lymphocytes (% ) (Auto) 20.0, Monocytes (%) (Auto) 8.1, Eosinophils (%) (Auto) 0.4, Basophils ( %) (Auto) 0.4, Sodium Level 148H, Potassium Level 4.3, Chloride Level 111H, Carbon Dioxide Level 26, Anion Gap 11, Blood Urea Nitrogen 17, Creatinine 0.8, Estimat Glomerular Filtration Rate > 60, Glucose Level 80, Calcium Level 8.7, Phosphorus Level 3.5, Magnesium Level 2.2, Total Bilirubin 0.2, Aspartate Amino Transf (AST/SGOT) 36, Alanine Aminotransferase (ALT/SGPT) 30, Alkaline Phosphatase 146H, Troponin I 0.810H, C-Reactive Protein, Quantitative 23.5H, Pro -B-Type Natriuretic Peptide 876H, Total Protein 6.7, Albumin 1.5L, Globulin 5.2 , Albumin/Globulin Ratio 0.3L Height (Feet): 5 Height (Inches): 0.00 Weight (Pounds): 148 General Appearance: no apparent distress Cardiovascular: normal rate Abdomen: soft Objective No change Robert Foreman MD Dec 25, 2019 10:13
[2019-12-25 12:00] VITALS: BP 136/68
--- NOTE | 2019-12-25 14:19 | Infectious Diseases Prog Note ---
Assessment/Plan Problems: (1) Sepsis Assessment & Plan: with Staphylococcus epidermidis source ? continue vancomycin for two weeks, repeated blood culture is growing staph spp from one bottle , possible contaminants. (2) COVID-19 virus infection Assessment & Plan: keep in enhanced droplet isolation, S/P hydroxychloroquin with zinc and vitamin C for five days total.repeat PCR test times two preparing for transfer back (3) Viral pneumonia Assessment & Plan: due to COVID 19, S/P hydroxychloroquine , with zinc and vitamin C for five days, Repeated PCR test is negative (4) ROSARIO (acute kidney injury) Assessment & Plan: suspect due to dehydration and poor oral intake improving monitor renal function avoid nephrotoxic's (5) NSTEMI (non-ST elevated myocardial infarction) Assessment & Plan: could be due to COVID 19, cardiology is following monitor troponin level Subjective ROS Limited/Unobtainable: Yes Allergies: Coded Allergies: MEMANTINE (Unverified Allergy, Unknown, 12/15/19) SERTRALINE (Unverified Allergy, Unknown, 12/15/19) Subjective she was resting in bed in SDU, had no fever today, no SOB, confused , receiving meds though NGT , no agitation , sating well on room air Objective Vital Signs Last 24 Hour Vital Signs Date Time Temp Pulse Resp B/P (MAP) Pulse Ox O2 Delivery O2 Flow Rate FiO2 12/25/19 11:40 77 12/25/19 08:01 81 12/25/19 08:00 Room Air 12/25/19 08:00 98.4 80 20 155/60 (91) 94 12/25/19 04:00 98.0 81 20 134/76 (95) 97 12/25/19 04:00 85 12/25/19 04:00 Room Air 12/25/19 04:00 100 12/25/19 00:00 Room Air 12/25/19 00:00 82 12/25/19 00:00 100 12/25/19 00:00 99.1 83 24 156/66 (96) 98 12/24/19 20:00 72 12/24/19 20:00 97.5 80 19 143/72 (95) 97 12/24/19 20:00 Room Air 12/24/19 16:00 Room Air 12/24/19 16:00 97.8 92 19 121/76 (91) 95 4/24/20 16:00 78 12/24/19 15:55 122/95 Height (Feet): 5 Height (Inches): 0.00 Weight (Pounds): 148 General Appearance: WD/WN, no acute distress, cachetic HEENT: normocephalic, atraumatic, anicteric, mucous membranes moist, PERRL Respiratory/Chest: chest wall non-tender, lungs clear, normal breath sounds, no respiratory distress, no accessory muscle use Cardiovascular: normal peripheral pulses, normal rate, regular rhythm, no gallop/murmur, no JVD Abdomen: normal bowel sounds, soft, non tender, no organomegaly, non distended , no mass, no scars Genitourinary: normal external genitalia Extremities: no cyanosis, no clubbing Skin: no rash, no lesions 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: unresponsiveness Lymphatic: no neck adenopathy, no groin adenopathy Microbiology Date/Time Source Procedure Growth Status 12/22/19 16:30 Nasopharynx Coronavirus COVID-19 PCR ([facility]) - Final Complete Laboratory Tests Test 12/25/19 01:02 12/25/19 03:50 Vancomycin Level Trough 19.8 ug/mL (5.0-12.0) H White Blood Count 11.5 K/UL (4.8-10.8) H Red Blood Count 3.75 M/UL (4.20-5.40) L Hemoglobin 11.9 G/DL (12.0-16.0) L Hematocrit 34.9 % (37.0-47.0) L Mean Corpuscular Volume 93 FL (80-99) Mean Corpuscular Hemoglobin 31.6 PG (27.0-31.0) H Mean Corpuscular Hemoglobin Concent 34.0 G/DL (32.0-36.0) Red Cell Distribution Width 12.4 % (11.6-14.8) Platelet Count 195 K/UL (150-450) Mean Platelet Volume 7.1 FL (6.5-10.1) Neutrophils (%) (Auto) 71.1 % (45.0-75.0) Lymphocytes (%) (Auto) 20.0 % (20.0-45.0) Monocytes (%) (Auto) 8.1 % (1.0-10.0) Eosinophils (%) (Auto) 0.4 % (0.0-3.0) Basophils (%) (Auto) 0.4 % (0.0-2.0) Sodium Level 148 MMOL/L (136-145) H Potassium Level 4.3 MMOL/L (3.5-5.1) Chloride Level 111 MMOL/L (98-107) H Carbon Dioxide Level 26 MMOL/L (21-32) Anion Gap 11 mmol/L (5-15) Blood Urea Nitrogen 17 mg/dL (7-18) Creatinine 0.8 MG/DL (0.55-1.30) Estimat Glomerular Filtration Rate > 60 mL/min (>60) Glucose Level 80 MG/DL (74-106) Calcium Level 8.7 MG/DL (8.5-10.1) Phosphorus Level 3.5 MG/DL (2.5-4.9) Magnesium Level 2.2 MG/DL (1.8-2.4) Total Bilirubin 0.2 MG/DL (0.2-1.0) Aspartate Amino Transf (AST/SGOT) 36 U/L (15-37) Alanine Aminotransferase (ALT/SGPT) 30 U/L (12-78) Alkaline Phosphatase 146 U/L (46-116) H Troponin I 0.810 ng/mL (0.000-0.056) C-Reactive Protein, Quantitative 23.5 mg/dL (0.00-0.90) H Pro-B-Type Natriuretic Peptide 876 pg/mL (0-125) H Total Protein 6.7 G/DL (6.4-8.2) Albumin 1.5 G/DL (3.4-5.0) L Globulin 5.2 g/dL Albumin/Globulin Ratio 0.3 (1.0-2.7) L Current Medications Medications (Trade) Dose Ordered Sig/Ovi Route PRN Reason Start Time Stop Time Status Last Admin Dose Admin Aspirin (ASA) 81 mg DAILY NG 12/19/19 09:00 02/02/20 08:59 12/25/19 09:10 Atorvastatin Calcium (Lipitor) 20 mg BEDTIME ORAL 12/19/19 21:00 03/18/20 20:59 12/24/19 21:08 Heparin Sodium (Porcine) (Heparin 5000 units/ml) 5,000 units EVERY 12 HOURS SUBQ 12/19/19 21:00 02/02/20 20:59 12/25/19 09:08 Nitroglycerin (Ntg) 1 patch Q24H TDERMAL 12/19/19 14:00 01/14/20 13:59 12/24/19 15:55 Pantoprazole (Protonix) 40 mg Q12HR IVP 12/18/19 21:00 01/14/20 20:59 12/25/19 09:10 Potassium Chloride (K-Dur) 20 meq TWICE A DAY ORAL 12/18/19 18:00 03/15/20 17:59 12/25/19 09:10 Valproic Acid (Depakene) 500 mg EVERY 12 HOURS NG 12/18/19 23:15 01/17/20 23:14 12/25/19 09:10 Vancomycin HCl (Vanco rx to dose) 1 ea DAILY PRN MISC Per rx protocol 12/19/19 12:00 01/18/20 11:59 Vancomycin HCl 750 mg/Sodium Chloride 275 ml @ 183.708 mls/hr Q8H IVPB 12/24/19 02:00 12/29/19 01:59 12/25/19 09:14 Sukhjinder Howell M.D. Dec 25, 2019 14:19
[2019-12-25] MEDS: Nitroglycerin Patch 0.4mg TDERMAL SCH (14:30)
[2019-12-25 16:00] VITALS: BP 132/70
--- NOTE | 2019-12-25 19:16 | Cardiology Progress Note ---
Assessment/Plan Problem List: (1) COVID-19 virus infection (2) NSTEMI (non-ST elevated myocardial infarction) (3) Electrolyte imbalance (4) Sepsis Status: stable, unchanged Status Narrative COVID 19 pneumonia Non STEMI - demand ischemia. 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 No ECHO done due to COVID status Hypokalemia RF -due to vol depletion, now resolved Hypokalemia Dementia Assessment/Plan Continue supportive care. Start asa, low dose b blockers for CAD, w/ nonstemi this admission. Kp inhibitors for HTN, afterload reduction. Subjective ROS Limited/Unobtainable: Yes Subjective Cardiology for Dr. Rosen Pt intermittently agitated. + nonprod cough Objective Last 24 Hour Vital Signs Date Time Temp Pulse Resp B/P (MAP) Pulse Ox O2 Delivery O2 Flow Rate FiO2 12/25/19 16:00 98.0 79 19 132/70 (90) 96 12/25/19 16:00 Room Air 12/25/19 15:13 84 12/25/19 14:30 124/71 12/25/19 12:00 Room Air 12/25/19 12:00 98.2 82 20 136/68 (90) 95 12/25/19 11:40 77 12/25/19 08:01 81 12/25/19 08:00 Room Air 12/25/19 08:00 98.4 80 20 155/60 (91) 94 12/25/19 04:00 98.0 81 20 134/76 (95) 97 12/25/19 04:00 85 12/25/19 04:00 Room Air 12/25/19 04:00 100 12/25/19 00:00 Room Air 12/25/19 00:00 82 12/25/19 00:00 100 12/25/19 00:00 99.1 83 24 156/66 (96) 98 12/24/19 20:00 72 12/24/19 20:00 97.5 80 19 143/72 (95) 97 12/24/19 20:00 Room Air General Appearance: WD/WN, mild distress EENT: PERRL/EOMI Neck: supple, no JVD Rhythm: NSR Cardiovascular: normal rate, regular rhythm, no gallop/murmur Respiratory/Chest: lungs clear, no accessory muscle use, other - clear anteriorly, unableto cooperate w/ deep inspir effort Abdomen: non tender, soft Extremities: no swelling Intake and Output 12/24/19 12/25/19 19:00 07:00 Intake Total 430 ml 310 ml Output Total 800 ml Balance 430 ml -490 ml Intake Free Water 190 ml 90 ml Tube Feeding 240 ml 220 ml Output Urine Total 800 ml Laboratory Tests Test 12/25/19 01:02 12/25/19 03:50 Vancomycin Level Trough 19.8 ug/mL (5.0-12.0) H White Blood Count 11.5 K/UL (4.8-10.8) H Red Blood Count 3.75 M/UL (4.20-5.40) L Hemoglobin 11.9 G/DL (12.0-16.0) L Hematocrit 34.9 % (37.0-47.0) L Mean Corpuscular Volume 93 FL (80-99) Mean Corpuscular Hemoglobin 31.6 PG (27.0-31.0) H Mean Corpuscular Hemoglobin Concent 34.0 G/DL (32.0-36.0) Red Cell Distribution Width 12.4 % (11.6-14.8) Platelet Count 195 K/UL (150-450) Mean Platelet Volume 7.1 FL (6.5-10.1) Neutrophils (%) (Auto) 71.1 % (45.0-75.0) Lymphocytes (%) (Auto) 20.0 % (20.0-45.0) Monocytes (%) (Auto) 8.1 % (1.0-10.0) Eosinophils (%) (Auto) 0.4 % (0.0-3.0) Basophils (%) (Auto) 0.4 % (0.0-2.0) Sodium Level 148 MMOL/L (136-145) H Potassium Level 4.3 MMOL/L (3.5-5.1) Chloride Level 111 MMOL/L (98-107) H Carbon Dioxide Level 26 MMOL/L (21-32) Anion Gap 11 mmol/L (5-15) Blood Urea Nitrogen 17 mg/dL (7-18) Creatinine 0.8 MG/DL (0.55-1.30) Estimat Glomerular Filtration Rate > 60 mL/min (>60) Glucose Level 80 MG/DL (74-106) Calcium Level 8.7 MG/DL (8.5-10.1) Phosphorus Level 3.5 MG/DL (2.5-4.9) Magnesium Level 2.2 MG/DL (1.8-2.4) Total Bilirubin 0.2 MG/DL (0.2-1.0) Aspartate Amino Transf (AST/SGOT) 36 U/L (15-37) Alanine Aminotransferase (ALT/SGPT) 30 U/L (12-78) Alkaline Phosphatase 146 U/L (46-116) H Troponin I 0.810 ng/mL (0.000-0.056) C-Reactive Protein, Quantitative 23.5 mg/dL (0.00-0.90) H Pro-B-Type Natriuretic Peptide 876 pg/mL (0-125) H Total Protein 6.7 G/DL (6.4-8.2) Albumin 1.5 G/DL (3.4-5.0) L Globulin 5.2 g/dL Albumin/Globulin Ratio 0.3 (1.0-2.7) Tanesha Lopez MD Dec 25, 2019 19:16
[2019-12-25 20:00] VITALS: BP 145/77
[2019-12-25] MEDS ORDERED: Captopril 12.5mg tab ORAL SCH (21:00)
[2019-12-25] MEDS: Captopril 25mg tab ORAL SCH (21:56)
[2019-12-25] MEDS: Atorvastatin 20mg tab ORAL SCH (21:56)
[2019-12-26] VITALS: BP 131/72
[2019-12-26 04:00] VITALS: BP 146/79
[2019-12-26] MEDS: Vancomycin 750 MG in NS 275 ML IVPB SCH ×2 (04:01→08:58)
[2019-12-26 08:00] VITALS: BP 139/73
--- NOTE | 2019-12-26 08:26 | Pulmonology Progress Note ---
Marge Gutierrez CONTROL PANEL ASSEMBLER 12/26/19 0826: Assessment/Plan Assessment/Plan PROBLEMS (1) COVID-19 virus infection (2) Viral pneumonia (3) Electrolyte imbalance (4) NSTEMI (non-ST elevated myocardial infarction) (5) Encephalopathy (6) Dehydration (7) ROSARIO (acute kidney injury) (8) Staphylococcus epidermidis bacteremia Assessment/Plan Confirmed CoVID 19 infection Acute hypoxemic respiratory failure S epidermis BSI Acute renal failure - RESOLVED Severe dehydration - IMPROVED Hypernatremia indicative of free water depletion Hypercalcemia likely due to dehydration Elevated hemoglobin likely secondary to hemoconcentration Elevated troponin/NSTEMI Poor p.o. intake / failure to thrive Dementia Hypertension Exposure to COVID-19 Generalized anxiety disorder Plan: * COVID-19 isolation status, confirmed 12/14, * repeat COVID 12/21- NGT, ? off isolation - per ID recs * Monitor oxygenation closely, only on 1-2L nasal cannula * CXR prn worsening symptoms, last CXR 12/16 clear lungs * fup with CXR this am -pending, given new leukocytosis 12/24 * Vanco per ID, need 2 wks for Staph epidermidis ( repeated BCX 12/20 still + with Staph epidermidis) * Completed 5 days of Plaquenil * s/p IVF , nephro on board * Monitor electrolytes and renal parameters * TTE when off isolation * NPO, NGTF's, AIR QUALITY CHEMIST eval (once off ISO), not ready for swallow eval yet , strict aspiration precautions * Cont depakote 500 mg bid from SNF * DVT ppx: heparin SQ * Full Code per prior documented ECP notes - will D/W family; not progressing Prophylaxis: Heparin SQ Disposition: downgrade to tele Time Spent (Minutes): 35 Notes Reviewed: cardio, renal, ID Discussed with: nurses, consultants case discussed and evaluated by supervising physician Subjective ROS Limited/Unobtainable: Yes Interval Events: Allergies: Coded Allergies: MEMANTINE (Unverified Allergy, Unknown, 12/15/19) SERTRALINE (Unverified Allergy, Unknown, 12/15/19) Subjective SARS- CoV -2 by PCR 12/21 not detected creat stable no fevers , mild leukocytosis 12/24, no labs yet this am trop trending down Objective Last 24 Hour Vital Signs Date Time Temp Pulse Resp B/P (MAP) Pulse Ox O2 Delivery O2 Flow Rate FiO2 12/26/19 04:00 Room Air 12/26/19 04:00 87 12/26/19 04:00 98.0 78 19 146/79 (101) 95 12/26/19 00:00 Room Air 12/26/19 00:00 98.2 88 19 131/72 (91) 95 12/25/19 23:49 87 12/25/19 21:56 145/77 12/25/19 20:00 Room Air 12/25/19 20:00 98.4 88 19 145/77 (99) 96 12/25/19 19:20 86 12/25/19 16:00 98.0 79 19 132/70 (90) 96 12/25/19 16:00 Room Air 12/25/19 15:13 84 12/25/19 14:30 124/71 12/25/19 12:00 Room Air 12/25/19 12:00 98.2 82 20 136/68 (90) 95 12/25/19 11:40 77 Intake and Output 12/25/19 12/26/19 19:00 07:00 Intake Total 20 ml 463.708 ml Output Total 600 ml Balance 20 ml -136.292 ml Intake Free Water 80 ml IV Total 183.708 ml Tube Feeding 20 ml 200 ml Output Urine Total 600 ml Objective General Appearance: WD/WN, no acute distress elderly female HEENT: normocephalic, atraumatic, anicteric, mucous membranes moist, PERRL, NGT Respiratory/Chest: few scattered rhonchi Cardiovascular: normal peripheral pulses, normal rate, regular rhythm Abdomen: normal bowel sounds, soft, non tender, no organomegaly, non distended , no mass, no scars Genitourinary: normal external genitalia Extremities: no cyanosis, no clubbing Skin: no rash, no lesions, no ulcers 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 normal, alert, not- responsive Lymphatic: no neck adenopathy, no groin adenopathy Musculoskeletal: normal muscle bulk, no effusion General Appearance: cachetic 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: unresponsiveness Laboratory Tests 12/26/19 01:02: Vancomycin Level Trough 24.3H Current Medications Medications (Trade) Dose Ordered Sig/Ovi Route PRN Reason Start Time Stop Time Status Last Admin Dose Admin Aspirin (ASA) 81 mg DAILY NG 12/19/19 09:00 02/02/20 08:59 12/25/19 09:10 Atorvastatin Calcium (Lipitor) 20 mg BEDTIME ORAL 12/19/19 21:00 03/18/20 20:59 12/25/19 21:56 Captopril (Capoten) 6.25 mg EVERY 12 HOURS ORAL 12/25/19 22:00 01/24/20 21:59 12/25/19 21:56 Heparin Sodium (Porcine) (Heparin 5000 units/ml) 5,000 units EVERY 12 HOURS SUBQ 12/19/19 21:00 02/02/20 20:59 12/25/19 21:58 Nitroglycerin (Ntg) 1 patch Q24H TDERMAL 12/19/19 14:00 01/14/20 13:59 12/25/19 14:30 Pantoprazole (Protonix) 40 mg Q12HR IVP 12/18/19 21:00 01/14/20 20:59 12/25/19 21:57 Potassium Chloride (K-Dur) 20 meq EVERY 12 HOURS ORAL 12/25/19 21:00 03/15/20 17:59 12/25/19 21:55 Valproic Acid (Depakene) 500 mg EVERY 12 HOURS NG 12/18/19 23:15 01/17/20 23:14 12/25/19 21:57 Vancomycin HCl (Vanco rx to dose) 1 ea DAILY PRN MISC Per rx protocol 12/19/19 12:00 01/18/20 11:59 Vancomycin HCl 750 mg/Sodium Chloride 275 ml @ 183.708 mls/hr Q8H IVPB 12/24/19 02:00 12/29/19 01:59 12/26/19 04:01 Vancomycin HCl 1 gm/Dextrose 275 ml @ 183.708 mls/hr Q12HR IVPB 12/26/19 09:00 12/31/19 08:59 Boby Toledo MD 12/27/191924: Assessment/Plan Assessment/Plan Patient seen and examined with CONTROL PANEL ASSEMBLER, agree with A&P as it reflects our joint deliberations. Subjective Allergies: Coded Allergies: MEMANTINE (Unverified Allergy, Unknown, 12/15/19) SERTRALINE (Unverified Allergy, Unknown, 12/15/19) Marge Gutierrez NP Dec 26, 2019 08:26 Boby Toledo MD Dec 27, 2019 19:25
[2019-12-26] MEDS: Valproic Acid 250mg/5ml Liquid NG SCH ×2 (08:54→21:01)
[2019-12-26] MEDS: Captopril 25mg tab ORAL SCH ×2 (08:57→21:02)
--- NOTE | 2019-12-26 08:57 | Diagnostic Imaging Report ---
EXAM: XR Chest, 1 View CLINICAL HISTORY: SOB TECHNIQUE: Frontal view of the chest. COMPARISON: 12/17/19 FINDINGS: Lungs: Unremarkable. No consolidation. Pleural space: Unremarkable. No pneumothorax. Heart: Unremarkable. No cardiomegaly. Mediastinum: Unremarkable. Bones/joints: Unremarkable. Tubes, lines and devices: There is an NG tube in good position IMPRESSION: No acute findings in the chest.
[2019-12-26] MEDS: Pantoprazole Inj IVP SCH ×2 (09:00→21:01)
[2019-12-26] MEDS: Aspirin Baby 81mg NG SCH (09:01)
[2019-12-26] MEDS: Vancomycin 1gm in D5W 275ml IVPB SCH ×2 (09:08→21:00)
[2019-12-26] MEDS: Heparin 5000 units/ml inj SUBQ SCH ×2 (09:09→21:03)
[2019-12-26 12:00] VITALS: BP 110/57
--- NOTE | 2019-12-26 13:59 | Nephrology Progress Note ---
Assessment/Plan Problem List: (1) ROSARIO (acute kidney injury) (2) Dehydration (3) Electrolyte imbalance (4) NSTEMI (non-ST elevated myocardial infarction) Assessment Acute renal failure Severe dehydration Hypernatremia indicative of free water depletion Hypercalcemia likely due to dehydration Elevated hemoglobin likely secondary to hemoconcentration Elevated troponin Poor p.o. intake / failure to thrive Dementia Hypertension Exposure to COVID-19 Plan Covid19 test positive No chemistry blood work for today IV fluid adjusted Aspirin 2D echocardiogram, results still pending IV Protonix Nitropaste Avoid nephrotoxic's Monitor renal parameters Monitor hemoglobin hematocrit Avoid mind altering medication in view of severe lethargy Per orders Subjective ROS Limited/Unobtainable: No Constitutional: Reports: malaise, weakness Objective Objective Last 24 Hour Vital Signs Date Time Temp Pulse Resp B/P (MAP) Pulse Ox O2 Delivery O2 Flow Rate FiO2 12/26/19 12:00 Room Air 12/26/19 12:00 98.6 83 19 110/57 (74) 95 12/26/19 11:40 84 12/26/19 08:57 139/73 12/26/19 08:00 98.0 87 19 139/73 (95) 95 12/26/19 08:00 Room Air 12/26/19 07:59 87 12/26/19 04:00 Room Air 12/26/19 04:00 87 12/26/19 04:00 98.0 78 19 146/79 (101) 95 12/26/19 00:00 Room Air 12/26/19 00:00 98.2 88 19 131/72 (91) 95 12/25/19 23:49 87 12/25/19 21:56 145/77 12/25/19 20:00 Room Air 12/25/19 20:00 98.4 88 19 145/77 (99) 96 12/25/19 19:20 86 12/25/19 16:00 98.0 79 19 132/70 (90) 96 12/25/19 16:00 Room Air 12/25/19 15:13 84 12/25/19 14:30 124/71 Intake and Output 12/25/19 12/26/19 19:00 07:00 Intake Total 20 ml 463.708 ml Output Total 600 ml Balance 20 ml -136.292 ml Intake Free Water 80 ml IV Total 183.708 ml Tube Feeding 20 ml 200 ml Output Urine Total 600 ml Laboratory Tests 12/26/19 01:02: Vancomycin Level Trough 24.3H Height (Feet): 5 Height (Inches): 0.00 Weight (Pounds): 149 General Appearance: no apparent distress, lethargic EENT: other - Has NG tube Cardiovascular: tachycardia Respiratory/Chest: decreased breath sounds Abdomen: soft Objective No change Robert Foreman MD Dec 26, 2019 13:59
[2019-12-26] MEDS: Nitroglycerin Patch 0.4mg TDERMAL SCH (14:31)
[2019-12-26 16:00] VITALS: BP 132/68
--- NOTE | 2019-12-26 18:14 | Cardiology Progress Note ---
Assessment/Plan Problem List: (1) COVID-19 virus infection (2) NSTEMI (non-ST elevated myocardial infarction) (3) Electrolyte imbalance (4) Sepsis Status: stable, unchanged Status Narrative COVID 19 pneumonia S epi bacteremia Non STEMI - demand ischemia. Troponin elevated on adm, now decreasing. 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 No ECHO done due to COVID status Hypokalemia RF -due to vol depletion, now resolved Hypokalemia Dementia Aspiration risk Assessment/Plan Continue supportive care o2, TF Continue iv vanco for s epi bacteremia Start asa, low dose b blockers for CAD, w/ nonstemi this admission. Kp inhibitors for HTN, afterload reduction. ECHO to assess LV function, wall motion and valves when able. Subjective ROS Limited/Unobtainable: Yes Subjective Cardiology for Dr. Rosen Pt intermittently agitated, screaming. Disoriented Objective Last 24 Hour Vital Signs Date Time Temp Pulse Resp B/P (MAP) Pulse Ox O2 Delivery O2 Flow Rate FiO2 12/26/19 16:00 Room Air 12/26/19 16:00 99.1 92 19 132/68 (89) 95 12/26/19 15:33 88 12/26/19 14:31 110/57 12/26/19 12:00 Room Air 12/26/19 12:00 98.6 83 19 110/57 (74) 95 12/26/19 11:40 84 12/26/19 08:57 139/73 12/26/19 08:00 98.0 87 19 139/73 (95) 95 12/26/19 08:00 Room Air 12/26/19 07:59 87 12/26/19 04:00 Room Air 12/26/19 04:00 87 12/26/19 04:00 98.0 78 19 146/79 (101) 95 12/26/19 00:00 Room Air 12/26/19 00:00 98.2 88 19 131/72 (91) 95 12/25/19 23:49 87 12/25/19 21:56 145/77 12/25/19 20:00 Room Air 12/25/19 20:00 98.4 88 19 145/77 (99) 96 12/25/19 19:20 86 General Appearance: WD/WN, mild distress Neck: supple, no JVD Rhythm: NSR Cardiovascular: normal rate, regular rhythm, no gallop/murmur Respiratory/Chest: other - occ rhonchi bilat Abdomen: normal bowel sounds, non tender, soft Extremities: no swelling Intake and Output 12/25/19 12/26/19 19:00 07:00 Intake Total 20 ml 463.708 ml Output Total 600 ml Balance 20 ml -136.292 ml Intake Free Water 80 ml IV Total 183.708 ml Tube Feeding 20 ml 200 ml Output Urine Total 600 ml Laboratory Tests Test 12/26/19 01:02 Vancomycin Level Trough 24.3 ug/mL (5.0-12.0) H Tanesha Santoro MD Dec 26, 2019 18:14
[2019-12-26 20:00] VITALS: BP 134/69
--- NOTE | 2019-12-26 20:41 | Infectious Diseases Prog Note ---
Assessment/Plan Problems: (1) Sepsis Assessment & Plan: with Staphylococcus epidermidis source ? continue vancomycin for two weeks, repeated blood culture is growing staph spp from one bottle , possible contaminants. (2) COVID-19 virus infection Assessment & Plan: keep in enhanced droplet isolation, S/P hydroxychloroquin with zinc and vitamin C for five days total.repeat PCR test times two preparing for transfer back (3) Viral pneumonia Assessment & Plan: due to COVID 19, S/P hydroxychloroquine , with zinc and vitamin C for five days, Repeated PCR test is negative (4) ROSARIO (acute kidney injury) Assessment & Plan: suspect due to dehydration and poor oral intake improving monitor renal function avoid nephrotoxic's (5) NSTEMI (non-ST elevated myocardial infarction) Assessment & Plan: could be due to COVID 19, cardiology is following monitor troponin level Subjective ROS Limited/Unobtainable: Yes Allergies: Coded Allergies: MEMANTINE (Unverified Allergy, Unknown, 12/15/19) SERTRALINE (Unverified Allergy, Unknown, 12/15/19) Subjective she was resting in bed in SDU, unresponsive, no fever today, no SOB, confused , receiving meds though NGT , no agitation , sating well on room air Objective Vital Signs Last 24 Hour Vital Signs Date Time Temp Pulse Resp B/P (MAP) Pulse Ox O2 Delivery O2 Flow Rate FiO2 12/26/19 16:00 Room Air 12/26/19 16:00 99.1 92 19 132/68 (89) 95 12/26/19 15:33 88 12/26/19 14:31 110/57 12/26/19 12:00 Room Air 12/26/19 12:00 98.6 83 19 110/57 (74) 95 12/26/19 11:40 84 12/26/19 08:57 139/73 12/26/19 08:00 98.0 87 19 139/73 (95) 95 12/26/19 08:00 Room Air 12/26/19 07:59 87 12/26/19 04:00 Room Air 12/26/19 04:00 87 12/26/19 04:00 98.0 78 19 146/79 (101) 95 12/26/19 00:00 Room Air 12/26/19 00:00 98.2 88 19 131/72 (91) 95 12/25/19 23:49 87 12/25/19 21:56 145/77 Height (Feet): 5 Height (Inches): 0.00 Weight (Pounds): 149 General Appearance: WD/WN, no acute distress, cachetic HEENT: normocephalic, atraumatic, anicteric, mucous membranes moist Respiratory/Chest: chest wall non-tender, normal breath sounds, no respiratory distress, no accessory muscle use Cardiovascular: normal peripheral pulses, normal rate, regular rhythm, no gallop/murmur, no JVD Abdomen: normal bowel sounds, soft, non tender, no organomegaly, non distended , no mass, no scars Genitourinary: normal external genitalia Extremities: no cyanosis, no clubbing Skin: no rash, no lesions 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: unresponsiveness Lymphatic: no neck adenopathy, no groin adenopathy Musculoskeletal: normal muscle bulk, no effusion Laboratory Tests Test 12/26/19 01:02 Vancomycin Level Trough 24.3 ug/mL (5.0-12.0) H Current Medications Medications (Trade) Dose Ordered Sig/Ovi Route PRN Reason Start Time Stop Time Status Last Admin Dose Admin Aspirin (ASA) 81 mg DAILY NG 12/19/19 09:00 02/02/20 08:59 12/26/19 09:01 Atorvastatin Calcium (Lipitor) 20 mg BEDTIME ORAL 12/19/19 21:00 03/18/20 20:59 12/25/19 21:56 Captopril (Capoten) 6.25 mg EVERY 12 HOURS ORAL 12/25/19 22:00 01/24/20 21:59 12/26/19 08:57 Heparin Sodium (Porcine) (Heparin 5000 units/ml) 5,000 units EVERY 12 HOURS SUBQ 12/19/19 21:00 02/02/20 20:59 12/26/19 09:09 Nitroglycerin (Ntg) 1 patch Q24H TDERMAL 12/19/19 14:00 01/14/20 13:59 12/26/19 14:31 Pantoprazole (Protonix) 40 mg Q12HR IVP 12/18/19 21:00 01/14/20 20:59 12/26/19 09:00 Potassium Chloride (K-Dur) 20 meq EVERY 12 HOURS ORAL 12/25/19 21:00 03/15/20 17:59 12/26/19 08:55 Valproic Acid (Depakene) 500 mg EVERY 12 HOURS NG 12/18/19 23:15 01/17/20 23:14 12/26/19 08:54 Vancomycin HCl (Vanco rx to dose) 1 ea DAILY PRN MISC Per rx protocol 12/19/19 12:00 01/18/20 11:59 Vancomycin HCl 1 gm/Dextrose 275 ml @ 183.708 mls/hr Q12HR IVPB 12/26/19 09:00 12/31/19 08:59 12/26/19 09:08 Sukhjinder Howell M.D. Dec 26, 2019 20:41
[2019-12-26] MEDS: Atorvastatin 20mg tab ORAL SCH (21:01)
[2019-12-27] VITALS: BP 131/66
[2019-12-27 04:00] VITALS: BP 136/79
[2019-12-27 07:05] LABS: BASOPHILS % (AUTO) 0.6 % (0.0-2.0); EOSINOPHILS % (AUTO) 0.3 % (0.0-3.0); HEMOGLOBIN 10.9 G/DL (12.0-16.0); LYMPHOCYTES % (AUTO) 20.8 % (20.0-45.0); MEAN CORPUSCULAR VOLUME 92 FL (80-99); MONOCYTES % (AUTO) 12.1 % (1.0-10.0); NEUTROPHILS % (AUTO) 66.2 % (45.0-75.0); PLATELET COUNT 204 K/UL (150-450); RED BLOOD COUNT 3.48 M/UL (4.20-5.40); RED CELL DISTRIBUTION WIDTH 11.9 % (11.6-14.8); WHITE BLOOD COUNT 9.4 K/UL (4.8-10.8)
[2019-12-27 07:36] LABS: ANION GAP 7 mmol/L (5-15); BLOOD UREA NITROGEN 22 mg/dL (7-18); CALCIUM 8.7 MG/DL (8.5-10.1); CARBON DIOXIDE 27 MMOL/L (21-32); CHLORIDE 111 MMOL/L (98-107); CREATININE 0.9 MG/DL (0.55-1.30); POTASSIUM 4.1 MMOL/L (3.5-5.1); SODIUM 145 MMOL/L (136-145)
[2019-12-27 07:50] LABS: ALANINE AMINOTRANSFERASE 47 U/L (12-78); ALBUMIN 1.3 G/DL (3.4-5.0); ALKALINE PHOSPHATASE 138 U/L (46-116); ASPARTATE AMINO TRANSFERASE 50 U/L (15-37); BILIRUBIN,DIRECT < 0.1 MG/DL (0.0-0.3); BILIRUBIN,TOTAL 0.2 MG/DL (0.2-1.0); PHOSPHORUS 3.4 MG/DL (2.5-4.9)
[2019-12-27 08:00] VITALS: BP 135/74
[2019-12-27] MEDS ORDERED: Captopril 12.5mg tab ORAL SCH (09:00)
--- NOTE | 2019-12-27 09:14 | Pulmonology Progress Note ---
Marge Gutierrez DOORPERSON OR LUGGAGE PORTER 12/27/19 0914: Assessment/Plan Assessment/Plan PROBLEMS Confirmed COVID-19 virus infection Viral pneumonia Electrolyte imbalance NSTEMI (non-ST elevated myocardial infarction) Encephalopathy (Dehydration ROSARIO (acute kidney injury) Staphylococcus epidermidis bacteremia Assessment/Plan Confirmed CoVID 19 infection Acute hypoxemic respiratory failure S epidermis bacteremia Acute renal failure - RESOLVED Severe dehydration - IMPROVED Hypernatremia indicative of free water depletion Hypercalcemia likely due to dehydration Elevated hemoglobin likely secondary to hemoconcentration Elevated troponin/NSTEMI Poor p.o. intake / failure to thrive Dementia Hypertension Exposure to COVID-19 Generalized anxiety disorder Plan: * COVID-19 isolation status, confirmed 12/14, * repeat COVID 12/21- NGT and 12/24 off isolation * on tele now * monitor oxygenation closely, on RA or only on 1-2L nasal cannula * CXR prn worsening symptoms, last CXR 12/16 clear lungs * fup CXR 12/25 given mild leukocytosis -no acute findings * mild leukocytosis resolved * Vanco per ID, need 2 wks for Staph epidermidis ( repeated BCX 12/20 still + with Staph epidermidis 1) * Completed 5 days of Plaquenil * s/p IVF , nephro on board * Monitor electrolytes and renal parameters * TTE per cardio * on a/PLT therapy with ASA, statin , [place] for afterload reduction * NPO, NGTF's, [employer] EXAMINER eval , , strict aspiration precautions, probably won't be able to participate in swallow eval * will need either G tube or palliative care * Cont depakote 500 mg bid from SNF * DVT ppx: heparin SQ * Full Code per prior documented ECP notes - will D/W family; not progressing Prophylaxis: Heparin SQ Disposition: downgraded to tele Time Spent (Minutes): 35 Notes Reviewed: cardio, renal, ID Discussed with: nurses, consultants case discussed and evaluated by supervising physician Subjective ROS Limited/Unobtainable: Yes Interval Events: Allergies: Coded Allergies: MEMANTINE (Unverified Allergy, Unknown, 12/15/19) SERTRALINE (Unverified Allergy, Unknown, 12/15/19) Subjective SARS- CoV -2 by PCR 12/21 and 12/24 not detected off isolation creat stable no fevers , mild leukocytosis resolved CXR 12/25 no acute disease trop trending down on RA pulse ox stable, periodically low flow O2 via NC Objective Last 24 Hour Vital Signs Date Time Temp Pulse Resp B/P (MAP) Pulse Ox O2 Delivery O2 Flow Rate FiO2 12/27/19 04:00 85 12/27/19 04:00 96.9 93 19 136/79 (98) 93 12/27/19 00:00 87 12/27/19 00:00 98.8 89 18 131/66 (87) 94 12/26/19 21:02 134/69 12/26/19 21:00 Room Air 12/26/19 20:00 97.4 90 18 134/69 (90) 93 12/26/19 20:00 88 12/26/19 16:00 Room Air 12/26/19 16:00 99.1 92 19 132/68 (89) 95 12/26/19 15:33 88 12/26/19 14:31 110/57 12/26/19 12:00 Room Air 12/26/19 12:00 98.6 83 19 110/57 (74) 95 12/26/19 11:40 84 Intake and Output 12/26/19 12/27/19 19:00 07:00 Intake Total 825.000 ml 275.000 ml Output Total 400 ml 400 ml Balance 425.000 ml -125.000 ml IV Total 275.000 ml 275.000 ml Tube Feeding 550 ml Output Urine Total 400 ml 400 ml Objective General Appearance: WD/WN, no acute distress elderly female HEENT: normocephalic, atraumatic, anicteric, mucous membranes moist, PERRL, NGT Respiratory/Chest: few scattered rhonchi Cardiovascular: normal peripheral pulses, normal rate, regular rhythm Abdomen: normal bowel sounds, soft, non tender, no organomegaly, non distended , no mass, no scars Genitourinary: normal external genitalia Extremities: no cyanosis, no clubbing Skin: no rash, no lesions, no ulcers 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, alert, not- responsive Lymphatic: no neck adenopathy, no groin adenopathy Musculoskeletal: normal muscle bulk, no effusion 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: unresponsiveness Microbiology Date/Time Source Procedure Growth Status 12/25/19 16:00 Nasopharynx Coronavirus COVID-19 PCR ([facility]) - Final Complete Laboratory Tests 12/27/19 06:33: White Blood Count 9.4, Red Blood Count 3.48L, Hemoglobin 10.9L, Hematocrit 32.0L , Mean Corpuscular Volume 92, Mean Corpuscular Hemoglobin 31.3H, Mean Corpuscular Hemoglobin Concent 34.1, Red Cell Distribution Width 11.9, Platelet Count 204, Mean Platelet Volume 7.3, Neutrophils (%) (Auto) 66.2, Lymphocytes (% ) (Auto) 20.8, Monocytes (%) (Auto) 12.1H, Eosinophils (%) (Auto) 0.3, Basophils (%) (Auto) 0.6, Sodium Level 145, Potassium Level 4.1, Chloride Level 111H, Carbon Dioxide Level 27, Anion Gap 7, Blood Urea Nitrogen 22H, Creatinine 0.9, Estimat Glomerular Filtration Rate > 60, Glucose Level 137H, Uric Acid 3.8 , Calcium Level 8.7, Phosphorus Level 3.4, Magnesium Level 2.1, Total Bilirubin 0.2, Direct Bilirubin < 0.1, Aspartate Amino Transf (AST/SGOT) 50H, Alanine Aminotransferase (ALT/SGPT) 47, Alkaline Phosphatase 138H, Troponin I 0.635H, Total Protein 5.4L, Albumin 1.3L Current Medications Medications (Trade) Dose Ordered Sig/Ovi Route PRN Reason Start Time Stop Time Status Last Admin Dose Admin Aspirin (ASA) 81 mg DAILY NG 12/19/19 09:00 02/02/20 08:59 12/26/19 09:01 Atorvastatin Calcium (Lipitor) 20 mg BEDTIME ORAL 12/19/19 21:00 03/18/20 20:59 12/26/19 21:01 Captopril (Capoten) 6.25 mg EVERY 12 HOURS ORAL 12/27/19 09:00 01/24/20 08:59 Heparin Sodium (Porcine) (Heparin 5000 units/ml) 5,000 units EVERY 12 HOURS SUBQ 12/19/19 21:00 02/02/20 20:59 12/26/19 21:03 Nitroglycerin (Ntg) 1 patch Q24H TDERMAL 12/19/19 14:00 01/14/20 13:59 12/26/19 14:31 Pantoprazole (Protonix) 40 mg Q12HR IVP 12/18/19 21:00 01/14/20 20:59 12/26/19 21:01 Potassium Chloride (K-Dur) 20 meq EVERY 12 HOURS ORAL 12/25/19 21:00 03/15/20 17:59 12/26/19 21:01 Valproic Acid (Depakene) 500 mg EVERY 12 HOURS NG 12/18/19 23:15 01/17/20 23:14 12/26/19 21:01 Vancomycin HCl (Vanco rx to dose) 1 ea DAILY PRN MISC Per rx protocol 12/19/19 12:00 01/18/20 11:59 Vancomycin HCl 1 gm/Dextrose 275 ml @ 183.708 mls/hr Q12HR IVPB 12/26/19 09:00 12/31/19 08:59 12/26/19 21:00 Boby Toledo MD 12/27/191927: Subjective Allergies: Coded Allergies: MEMANTINE (Unverified Allergy, Unknown, 12/15/19) SERTRALINE (Unverified Allergy, Unknown, 12/15/19) Subjective Patient seen and examined with DOORPERSON OR LUGGAGE PORTER. Agree with above A&P as it reflects our joint deliberations. Will d/w SW and identify next of kin. Ultimately need to determine overall GOC. Given baseline status and tradjectory a more comfort based approach would be appropriate. If full measures are pursued she will need a gastrostomy tube. Marge Gutierrez NP Dec 27, 2019 09:14 Boby Toledo MD Dec 27, 2019 19:28
[2019-12-27] MEDS: Valproic Acid 250mg/5ml Liquid NG SCH ×2 (09:20→21:37)
[2019-12-27] MEDS: Pantoprazole Inj IVP SCH ×2 (09:20→21:40)
[2019-12-27] MEDS: Vancomycin 1gm in D5W 275ml IVPB SCH (09:21)
[2019-12-27] MEDS: Aspirin Baby 81mg NG SCH (09:21)
[2019-12-27] MEDS: Heparin 5000 units/ml inj SUBQ SCH ×2 (09:22→21:42)
[2019-12-27] MEDS: Captopril 25mg tab ORAL SCH ×2 (11:18→21:39)
[2019-12-27 12:00] VITALS: BP 135/74
--- NOTE | 2019-12-27 12:20 | Nephrology Progress Note ---
Assessment/Plan Problem List: (1) ROSARIO (acute kidney injury) (2) Dehydration (3) Electrolyte imbalance (4) NSTEMI (non-ST elevated myocardial infarction) Assessment Acute renal failure Severe dehydration Hypernatremia indicative of free water depletion Hypercalcemia likely due to dehydration Elevated hemoglobin likely secondary to hemoconcentration Elevated troponin Poor p.o. intake / failure to thrive Dementia Hypertension Exposure to COVID-19 Plan Covid19 test positive No chemistry blood work for today IV fluid adjusted Aspirin 2D echocardiogram, results still pending IV Protonix Nitropaste Avoid nephrotoxic's Monitor renal parameters Monitor hemoglobin hematocrit Avoid mind altering medication in view of severe lethargy Per orders Subjective ROS Limited/Unobtainable: No Constitutional: Reports: malaise, weakness Objective Objective Last 24 Hour Vital Signs Date Time Temp Pulse Resp B/P (MAP) Pulse Ox O2 Delivery O2 Flow Rate FiO2 12/27/19 11:18 135/74 12/27/19 09:00 Room Air 12/27/19 08:00 98.4 87 19 135/74 (94) 94 12/27/19 08:00 86 12/27/19 04:00 85 12/27/19 04:00 96.9 93 19 136/79 (98) 93 12/27/19 00:00 87 12/27/19 00:00 98.8 89 18 131/66 (87) 94 12/26/19 21:02 134/69 12/26/19 21:00 Room Air 12/26/19 20:00 97.4 90 18 134/69 (90) 93 12/26/19 20:00 88 12/26/19 16:00 Room Air 12/26/19 16:00 99.1 92 19 132/68 (89) 95 12/26/19 15:33 88 12/26/19 14:31 110/57 Intake and Output 12/26/19 12/27/19 19:00 07:00 Intake Total 825.000 ml 275.000 ml Output Total 400 ml 400 ml Balance 425.000 ml -125.000 ml IV Total 275.000 ml 275.000 ml Tube Feeding 550 ml Output Urine Total 400 ml 400 ml Laboratory Tests 12/27/19 06:33: White Blood Count 9.4, Red Blood Count 3.48L, Hemoglobin 10.9L, Hematocrit 32.0L , Mean Corpuscular Volume 92, Mean Corpuscular Hemoglobin 31.3H, Mean Corpuscular Hemoglobin Concent 34.1, Red Cell Distribution Width 11.9, Platelet Count 204, Mean Platelet Volume 7.3, Neutrophils (%) (Auto) 66.2, Lymphocytes (% ) (Auto) 20.8, Monocytes (%) (Auto) 12.1H, Eosinophils (%) (Auto) 0.3, Basophils (%) (Auto) 0.6, Sodium Level 145, Potassium Level 4.1, Chloride Level 111H, Carbon Dioxide Level 27, Anion Gap 7, Blood Urea Nitrogen 22H, Creatinine 0.9, Estimat Glomerular Filtration Rate > 60, Glucose Level 137H, Uric Acid 3.8 , Calcium Level 8.7, Phosphorus Level 3.4, Magnesium Level 2.1, Total Bilirubin 0.2, Direct Bilirubin < 0.1, Aspartate Amino Transf (AST/SGOT) 50H, Alanine Aminotransferase (ALT/SGPT) 47, Alkaline Phosphatase 138H, Troponin I 0.635H, Total Protein 5.4L, Albumin 1.3L Height (Feet): 5 Height (Inches): 0.00 Weight (Pounds): 148 General Appearance: no apparent distress EENT: other - NG tube in place Cardiovascular: tachycardia Respiratory/Chest: decreased breath sounds Abdomen: soft Objective No change Robert Foreman MD Dec 27, 2019 12:20
--- NOTE | 2019-12-27 15:31 | Infectious Diseases Prog Note ---
Assessment/Plan Problems: (1) Sepsis Assessment & Plan: with Staphylococcus epidermidis grew out of four bottles from both sets, source ? continue vancomycin for two weeks, repeated blood culture is growing staph spp from one bottle , possible contaminants. (2) COVID-19 virus infection Assessment & Plan: keep in enhanced droplet isolation, S/P hydroxychloroquin with zinc and vitamin C for five days total.repeated PCR test times two so far is negative. (3) Viral pneumonia Assessment & Plan: due to COVID 19, S/P hydroxychloroquine , with zinc and vitamin C for five days, Repeated PCR test is negative (4) ROSARIO (acute kidney injury) Assessment & Plan: suspect due to dehydration and poor oral intake improving monitor renal function avoid nephrotoxic's (5) NSTEMI (non-ST elevated myocardial infarction) Assessment & Plan: could be due to COVID 19, cardiology is following monitor troponin level Subjective ROS Limited/Unobtainable: Yes Allergies: Coded Allergies: MEMANTINE (Unverified Allergy, Unknown, 12/15/19) SERTRALINE (Unverified Allergy, Unknown, 12/15/19) Subjective she was resting in bed in SDU, unresponsive, no fever today, no SOB, confused , receiving meds though NGT , no agitation , sating well on room air Objective Vital Signs Last 24 Hour Vital Signs Date Time Temp Pulse Resp B/P (MAP) Pulse Ox O2 Delivery O2 Flow Rate FiO2 12/27/19 12:00 97.3 85 19 135/74 (94) 95 12/27/19 12:00 81 12/27/19 11:18 135/74 12/27/19 09:00 Room Air 12/27/19 08:00 98.4 87 19 135/74 (94) 94 12/27/19 08:00 86 12/27/19 04:00 85 12/27/19 04:00 96.9 93 19 136/79 (98) 93 12/27/19 00:00 87 12/27/19 00:00 98.8 89 18 131/66 (87) 94 12/26/19 21:02 134/69 12/26/19 21:00 Room Air 12/26/19 20:00 97.4 90 18 134/69 (90) 93 12/26/19 20:00 88 12/26/19 16:00 Room Air 12/26/19 16:00 99.1 92 19 132/68 (89) 95 12/26/19 15:33 88 Height (Feet): 5 Height (Inches): 0.00 Weight (Pounds): 148 General Appearance: no acute distress, cachetic HEENT: normocephalic, atraumatic, anicteric, mucous membranes moist, PERRL Respiratory/Chest: chest wall non-tender, lungs clear, normal breath sounds, no respiratory distress, no accessory muscle use Cardiovascular: normal peripheral pulses, normal rate, regular rhythm, no gallop/murmur, no JVD Abdomen: normal bowel sounds, soft, non tender, no organomegaly, non distended , no mass, no scars Extremities: no cyanosis, no clubbing Skin: no rash, no lesions Lymphatic: no neck adenopathy, no groin adenopathy Musculoskeletal: normal muscle bulk, no effusion Microbiology Date/Time Source Procedure Growth Status 12/25/19 16:00 Nasopharynx Coronavirus COVID-19 PCR ([facility]) - Final Complete Laboratory Tests Test 12/27/19 06:33 White Blood Count 9.4 K/UL (4.8-10.8) Red Blood Count 3.48 M/UL (4.20-5.40) L Hemoglobin 10.9 G/DL (12.0-16.0) L Hematocrit 32.0 % (37.0-47.0) L Mean Corpuscular Volume 92 FL (80-99) Mean Corpuscular Hemoglobin 31.3 PG (27.0-31.0) H Mean Corpuscular Hemoglobin Concent 34.1 G/DL (32.0-36.0) Red Cell Distribution Width 11.9 % (11.6-14.8) Platelet Count 204 K/UL (150-450) Mean Platelet Volume 7.3 FL (6.5-10.1) Neutrophils (%) (Auto) 66.2 % (45.0-75.0) Lymphocytes (%) (Auto) 20.8 % (20.0-45.0) Monocytes (%) (Auto) 12.1 % (1.0-10.0) H Eosinophils (%) (Auto) 0.3 % (0.0-3.0) Basophils (%) (Auto) 0.6 % (0.0-2.0) Sodium Level 145 MMOL/L (136-145) Potassium Level 4.1 MMOL/L (3.5-5.1) Chloride Level 111 MMOL/L (98-107) H Carbon Dioxide Level 27 MMOL/L (21-32) Anion Gap 7 mmol/L (5-15) Blood Urea Nitrogen 22 mg/dL (7-18) H Creatinine 0.9 MG/DL (0.55-1.30) Estimat Glomerular Filtration Rate > 60 mL/min (>60) Glucose Level 137 MG/DL (74-106) H Uric Acid 3.8 MG/DL (2.6-7.2) Calcium Level 8.7 MG/DL (8.5-10.1) Phosphorus Level 3.4 MG/DL (2.5-4.9) Magnesium Level 2.1 MG/DL (1.8-2.4) Total Bilirubin 0.2 MG/DL (0.2-1.0) Direct Bilirubin < 0.1 MG/DL (0.0-0.3) Aspartate Amino Transf (AST/SGOT) 50 U/L (15-37) H Alanine Aminotransferase (ALT/SGPT) 47 U/L (12-78) Alkaline Phosphatase 138 U/L (46-116) H Troponin I 0.635 ng/mL (0.000-0.056) Total Protein 5.4 G/DL (6.4-8.2) L Albumin 1.3 G/DL (3.4-5.0) L Current Medications Medications (Trade) Dose Ordered Sig/Ovi Route PRN Reason Start Time Stop Time Status Last Admin Dose Admin Aspirin (ASA) 81 mg DAILY NG 12/19/19 09:00 02/02/20 08:59 12/27/19 09:21 Atorvastatin Calcium (Lipitor) 20 mg BEDTIME ORAL 12/19/19 21:00 03/18/20 20:59 12/26/19 21:01 Captopril (Capoten) 6.25 mg EVERY 12 HOURS ORAL 12/27/19 10:30 01/24/20 08:59 12/27/19 11:18 Heparin Sodium (Porcine) (Heparin 5000 units/ml) 5,000 units EVERY 12 HOURS SUBQ 12/19/19 21:00 02/02/20 20:59 12/27/19 09:22 Nitroglycerin (Ntg) 1 patch Q24H TDERMAL 12/19/19 14:00 01/14/20 13:59 12/26/19 14:31 Pantoprazole (Protonix) 40 mg Q12HR IVP 12/18/19 21:00 01/14/20 20:59 12/27/19 09:20 Potassium Chloride (K-Dur) 20 meq EVERY 12 HOURS ORAL 12/25/19 21:00 03/15/20 17:59 12/27/19 09:20 Valproic Acid (Depakene) 500 mg EVERY 12 HOURS NG 12/18/19 23:15 01/17/20 23:14 12/27/19 09:20 Vancomycin HCl (Vanco rx to dose) 1 ea DAILY PRN MISC Per rx protocol 12/19/19 12:00 01/18/20 11:59 Vancomycin HCl 1 gm/Dextrose 275 ml @ 183.708 mls/hr Q12HR IVPB 12/26/19 09:00 12/31/19 08:59 12/27/19 09:21 Sukhjinder Howell M.D. Dec 27, 2019 15:31
[2019-12-27] MEDS: Nitroglycerin Patch 0.4mg TDERMAL SCH (15:35)
[2019-12-27 16:00] VITALS: BP 152/77
--- NOTE | 2019-12-27 17:26 | Cardiology Progress Note ---
Assessment/Plan Assessment/Plan 1. Zfd-LH-[id number] myocardial infarction,related to demand vs from covid induced myonecrosis , doubt plaque rupture or cytokine storm 2. Acute renal failure in the setting of volume depletion. 3. Hypernatremia secondary to volume depletion. 4. 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 5. Dementia. 6. Lactic acidosis. 7. History of bradycardia secondary to medications. 8. bacteremia no fever covid status now neg on 2 check off heparin iv on sq herparin for dvt ppx echo prelimg nto sig abn on telel now tele sinus no afib or pauses on ecotrin and statin on feeding on iv vanco planned for 2 weeks hemodynamically stable for the moment Subjective Subjective per rn no cough no fever no vomit confused, , still yell bu t nto pull out any of keira tube or iv even without a restraitn perrn some diarrhea Objective Last 24 Hour Vital Signs Date Time Temp Pulse Resp B/P (MAP) Pulse Ox O2 Delivery O2 Flow Rate FiO2 12/27/19 15:35 135/74 12/27/19 12:00 97.3 85 19 135/74 (94) 95 12/27/19 12:00 81 12/27/19 11:18 135/74 12/27/19 09:00 Room Air 12/27/19 08:00 98.4 87 19 135/74 (94) 94 12/27/19 08:00 86 12/27/19 04:00 85 12/27/19 04:00 96.9 93 19 136/79 (98) 93 12/27/19 00:00 87 12/27/19 00:00 98.8 89 18 131/66 (87) 94 12/26/19 21:02 134/69 12/26/19 21:00 Room Air 12/26/19 20:00 97.4 90 18 134/69 (90) 93 12/26/19 20:00 88 Intake and Output 12/26/19 12/27/19 19:00 07:00 Intake Total 825.000 ml 275.000 ml Output Total 400 ml 400 ml Balance 425.000 ml -125.000 ml IV Total 275.000 ml 275.000 ml Tube Feeding 550 ml Output Urine Total 400 ml 400 ml Laboratory Tests Test 12/27/19 06:33 White Blood Count 9.4 K/UL (4.8-10.8) Red Blood Count 3.48 M/UL (4.20-5.40) L Hemoglobin 10.9 G/DL (12.0-16.0) L Hematocrit 32.0 % (37.0-47.0) L Mean Corpuscular Volume 92 FL (80-99) Mean Corpuscular Hemoglobin 31.3 PG (27.0-31.0) H Mean Corpuscular Hemoglobin Concent 34.1 G/DL (32.0-36.0) Red Cell Distribution Width 11.9 % (11.6-14.8) Platelet Count 204 K/UL (150-450) Mean Platelet Volume 7.3 FL (6.5-10.1) Neutrophils (%) (Auto) 66.2 % (45.0-75.0) Lymphocytes (%) (Auto) 20.8 % (20.0-45.0) Monocytes (%) (Auto) 12.1 % (1.0-10.0) H Eosinophils (%) (Auto) 0.3 % (0.0-3.0) Basophils (%) (Auto) 0.6 % (0.0-2.0) Sodium Level 145 MMOL/L (136-145) Potassium Level 4.1 MMOL/L (3.5-5.1) Chloride Level 111 MMOL/L (98-107) H Carbon Dioxide Level 27 MMOL/L (21-32) Anion Gap 7 mmol/L (5-15) Blood Urea Nitrogen 22 mg/dL (7-18) H Creatinine 0.9 MG/DL (0.55-1.30) Estimat Glomerular Filtration Rate > 60 mL/min (>60) Glucose Level 137 MG/DL (74-106) H Uric Acid 3.8 MG/DL (2.6-7.2) Calcium Level 8.7 MG/DL (8.5-10.1) Phosphorus Level 3.4 MG/DL (2.5-4.9) Magnesium Level 2.1 MG/DL (1.8-2.4) Total Bilirubin 0.2 MG/DL (0.2-1.0) Direct Bilirubin < 0.1 MG/DL (0.0-0.3) Aspartate Amino Transf (AST/SGOT) 50 U/L (15-37) H Alanine Aminotransferase (ALT/SGPT) 47 U/L (12-78) Alkaline Phosphatase 138 U/L (46-116) H Troponin I 0.635 ng/mL (0.000-0.056) Total Protein 5.4 G/DL (6.4-8.2) L Albumin 1.3 G/DL (3.4-5.0) L Microbiology Date/Time Source Procedure Growth Status 12/25/19 16:00 Nasopharynx Coronavirus COVID-19 PCR ([facility]) - Final Complete Kendell Rosen MD Dec 27, 2019 17:26
--- NOTE | 2019-12-27 18:43 | Nephrology Progress Note ---
Assessment/Plan Problem List: (1) ROSARIO (acute kidney injury) ICD Codes: N17.9 - Acute kidney failure, unspecified SNOMED: 8551257, 18769073 (2) Dehydration ICD Codes: E86.0 - Dehydration SNOMED: 11818476 (3) Electrolyte imbalance ICD Codes: E87.8 - Other disorders of electrolyte and fluid balance, not elsewhere classified SNOMED: 516516750 (4) NSTEMI (non-ST elevated myocardial infarction) ICD Codes: I21.4 - Non-ST elevation (NSTEMI) myocardial infarction SNOMED: 46131361 (5) COVID-19 virus infection ICD Codes: U07.1 - COVID-19 SNOMED: 342529811 Status: stable, unchanged Subjective Allergies: Coded Allergies: MEMANTINE (Unverified Allergy, Unknown, 12/15/19) SERTRALINE (Unverified Allergy, Unknown, 12/15/19) Objective Last 24 Hour Vital Signs Date Time Temp Pulse Resp B/P (MAP) Pulse Ox O2 Delivery O2 Flow Rate FiO2 12/27/19 16:00 84 12/27/19 16:00 98.2 87 19 152/77 (102) 97 12/27/19 15:35 135/74 12/27/19 12:00 97.3 85 19 135/74 (94) 95 12/27/19 12:00 81 12/27/19 11:18 135/74 12/27/19 09:00 Room Air 12/27/19 08:00 98.4 87 19 135/74 (94) 94 12/27/19 08:00 86 12/27/19 04:00 85 12/27/19 04:00 96.9 93 19 136/79 (98) 93 12/27/19 00:00 87 12/27/19 00:00 98.8 89 18 131/66 (87) 94 12/26/19 21:02 134/69 12/26/19 21:00 Room Air 12/26/19 20:00 97.4 90 18 134/69 (90) 93 12/26/19 20:00 88 Intake and Output 12/26/19 12/27/19 19:00 07:00 Intake Total 825.000 ml 275.000 ml Output Total 400 ml 400 ml Balance 425.000 ml -125.000 ml IV Total 275.000 ml 275.000 ml Tube Feeding 550 ml Output Urine Total 400 ml 400 ml Laboratory Tests 12/27/19 06:33: White Blood Count 9.4, Red Blood Count 3.48L, Hemoglobin 10.9L, Hematocrit 32.0L , Mean Corpuscular Volume 92, Mean Corpuscular Hemoglobin 31.3H, Mean Corpuscular Hemoglobin Concent 34.1, Red Cell Distribution Width 11.9, Platelet Count 204, Mean Platelet Volume 7.3, Neutrophils (%) (Auto) 66.2, Lymphocytes (% ) (Auto) 20.8, Monocytes (%) (Auto) 12.1H, Eosinophils (%) (Auto) 0.3, Basophils (%) (Auto) 0.6, Sodium Level 145, Potassium Level 4.1, Chloride Level 111H, Carbon Dioxide Level 27, Anion Gap 7, Blood Urea Nitrogen 22H, Creatinine 0.9, Estimat Glomerular Filtration Rate > 60, Glucose Level 137H, Uric Acid 3.8 , Calcium Level 8.7, Phosphorus Level 3.4, Magnesium Level 2.1, Total Bilirubin 0.2, Direct Bilirubin < 0.1, Aspartate Amino Transf (AST/SGOT) 50H, Alanine Aminotransferase (ALT/SGPT) 47, Alkaline Phosphatase 138H, Troponin I 0.635H, Total Protein 5.4L, Albumin 1.3L Height (Feet): 5 Height (Inches): 0.00 Weight (Pounds): 148 Robert Foreman MD Dec 27, 2019 18:43
[2019-12-27 20:00] VITALS: BP 138/98
[2019-12-27] MEDS: Atorvastatin 20mg tab ORAL SCH (21:38)
[2019-12-28] VITALS: BP 148/89
[2019-12-28] MEDS: Vancomycin 750 MG in NS 275 ML IVPB SCH ×2 (03:02→14:07)
[2019-12-28 04:00] VITALS: BP 148/87
[2019-12-28 08:00] VITALS: BP 128/73
[2019-12-28] MEDS: Pantoprazole Inj IVP SCH ×2 (08:40→21:50)
[2019-12-28] MEDS: Captopril 25mg tab ORAL SCH ×2 (08:41→21:52)
[2019-12-28] MEDS: Valproic Acid 250mg/5ml Liquid NG SCH ×2 (08:42→21:50)
[2019-12-28] MEDS: Heparin 5000 units/ml inj SUBQ SCH ×2 (08:43→21:52)
[2019-12-28] MEDS: Aspirin Baby 81mg NG SCH (08:45)
--- NOTE | 2019-12-28 09:12 | Pulmonology Progress Note ---
Marge Gutierrez FLEET DIRECTOR 12/28/19 0912: Assessment/Plan Assessment/Plan PROBLEMS Confirmed COVID-19 virus infection Viral pneumonia Electrolyte imbalance NSTEMI (non-ST elevated myocardial infarction) Encephalopathy (Dehydration ROSARIO (acute kidney injury) Staphylococcus epidermidis bacteremia Assessment/Plan Confirmed CoVID 19 infection Acute hypoxemic respiratory failure S epidermis bacteremia Acute renal failure - RESOLVED Severe dehydration - IMPROVED Hypernatremia indicative of free water depletion Hypercalcemia likely due to dehydration Elevated hemoglobin likely secondary to hemoconcentration Elevated troponin/NSTEMI Poor p.o. intake / failure to thrive Dementia Hypertension Exposure to COVID-19 Generalized anxiety disorder Plan: * COVID-19 isolation status, confirmed 12/14, * repeat COVID 12/21- NGT and 12/24 -> off isolation * on tele now * monitor oxygenation closely, on RA or only on 1-2L nasal cannula * CXR prn only if worsening symptoms, CXR 12/16 clear lungs * fup CXR 12/25 done , given mild leukocytosis -no acute findings * mild leukocytosis resolved * Vanco per ID, need 2 wks for Staph epidermidis ( repeated BCX 12/20 still + with Staph epidermidis 09/02) * Completed 5 days of Plaquenil * s/p IVF , nephro on board * Monitor electrolytes and renal parameters * TTE per cardio * on a/PLT therapy with ASA, statin , [facility] for afterload reduction * NPO, NGTF's, PERSONAL INSURANCE ADVISOR eval , , strict aspiration precautions, probably won't be able to participate in swallow eval * will need either G tube or palliative care * Cont depakote 500 mg bid from SNF * DVT ppx: heparin SQ * Full Code per prior documented ECP notes - will D/W family; not progressing * SW to identify next close to kin to discuss further goals of care Prophylaxis: Heparin SQ Disposition: downgraded to tele Time Spent (Minutes): 35 Notes Reviewed: cardio, renal, ID Discussed with: nurses, consultants case discussed and evaluated by supervising physician Subjective ROS Limited/Unobtainable: Yes Interval Events: Allergies: Coded Allergies: MEMANTINE (Unverified Allergy, Unknown, 12/15/19) SERTRALINE (Unverified Allergy, Unknown, 12/15/19) Subjective SARS- CoV -2 by PCR 12/21 not detected creat stable no fevers , no leukocytosis 12/26, CBC pending for this am trop trending down Objective Last 24 Hour Vital Signs Date Time Temp Pulse Resp B/P (MAP) Pulse Ox O2 Delivery O2 Flow Rate FiO2 12/28/19 08:41 128/73 12/28/19 08:00 99.3 90 18 128/73 (91) 100 12/28/19 04:00 93 12/28/19 04:00 99.0 92 20 148/87 (107) 95 12/28/19 00:00 98.2 94 20 148/89 (108) 98 12/28/19 00:00 91 12/27/19 21:39 138/98 12/27/19 21:00 Room Air 12/27/19 20:00 98.1 95 20 138/98 (111) 96 12/27/19 20:00 88 12/27/19 16:00 84 12/27/19 16:00 98.2 87 19 152/77 (102) 97 12/27/19 15:35 135/74 12/27/19 12:00 97.3 85 19 135/74 (94) 95 12/27/19 12:00 81 12/27/19 11:18 135/74 Intake and Output 12/27/19 12/28/19 19:00 07:00 Output Total 250 ml 500 ml Balance -250 ml -500 ml Output Urine Total 250 ml 500 ml # Voids 2 3 # Bowel Movements 1 1 Objective General Appearance: WD/WN, no acute distress elderly female HEENT: normocephalic, atraumatic, anicteric, mucous membranes moist, PERRL, NGT Respiratory/Chest: few scattered rhonchi Cardiovascular: normal peripheral pulses, normal rate, regular rhythm, SR on tele Abdomen: normal bowel sounds, soft, non tender, non distended, no mass, no scars Genitourinary: normal external genitalia Extremities: no cyanosis, no clubbing Skin: no rash, no lesions, no ulcers 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: weights and measures inspector II-XII grossly normal, alert, not- responsive Lymphatic: no neck adenopathy, no groin adenopathy Musculoskeletal: normal muscle bulk, no effusion General Appearance: cachetic 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: unresponsiveness Microbiology Date/Time Source Procedure Growth Status 12/25/19 16:00 Nasopharynx Coronavirus COVID-19 PCR ([facility]) - Final Complete Laboratory Tests 12/27/19 19:53: Vancomycin Level Trough 22.8H Current Medications Medications (Trade) Dose Ordered Sig/Ovi Route PRN Reason Start Time Stop Time Status Last Admin Dose Admin Aspirin (ASA) 81 mg DAILY NG 12/19/19 09:00 02/02/20 08:59 12/28/19 08:45 Atorvastatin Calcium (Lipitor) 20 mg BEDTIME ORAL 12/19/19 21:00 03/18/20 20:59 12/27/19 21:38 Captopril (Capoten) 6.25 mg EVERY 12 HOURS ORAL 12/27/19 10:30 01/24/20 08:59 12/28/19 08:41 Heparin Sodium (Porcine) (Heparin 5000 units/ml) 5,000 units EVERY 12 HOURS SUBQ 12/19/19 21:00 02/02/20 20:59 12/28/19 08:43 Nitroglycerin (Ntg) 1 patch Q24H TDERMAL 12/19/19 14:00 01/14/20 13:59 12/27/19 15:35 Pantoprazole (Protonix) 40 mg Q12HR IVP 12/18/19 21:00 01/14/20 20:59 12/28/19 08:40 Potassium Chloride (K-Dur) 20 meq EVERY 12 HOURS ORAL 12/25/19 21:00 03/15/20 17:59 12/28/19 08:42 Valproic Acid (Depakene) 500 mg EVERY 12 HOURS NG 12/18/19 23:15 01/17/20 23:14 12/28/19 08:42 Vancomycin HCl (Vanco rx to dose) 1 ea DAILY PRN MISC Per rx protocol 12/19/19 12:00 01/18/20 11:59 Vancomycin HCl 750 mg/Sodium Chloride 275 ml @ 183.333 mls/hr Q12HR@0300,1500 IVPB 12/28/19 03:00 01/02/20 02:59 12/28/19 03:02 Boby Toledo MD 12/28/19 5326: Assessment/Plan Assessment/Plan Patient seen and examined with FLEET DIRECTOR, agree with A&P as it reflects our joint deliberations. Extensive d/w daughter Dayna Milton . She is going to speak with the rest of the family and get back to me. We discussed CODE STATUS and I explained hopsice and comfort based measures. If full treatment measures are pursued she will need a GT. Subjective Allergies: Coded Allergies: MEMANTINE (Unverified Allergy, Unknown, 12/15/19) SERTRALINE (Unverified Allergy, Unknown, 12/15/19) Marge Gutierrez NP Dec 28, 2019 09:12 Boby Toledo MD Dec 28, 2019 17:28
[2019-12-28 12:10] VITALS: BP 126/70
--- NOTE | 2019-12-28 13:58 | Cardiology Progress Note ---
Assessment/Plan Assessment/Plan 1. Sxo-VV-yogwfwegu myocardial infarction,related to demand vs from covid induced myonecrosis , doubt plaque rupture or cytokine storm 2. Acute renal failure in the setting of volume depletion. 3. Hypernatremia secondary to volume depletion. 4. 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 5. Dementia. 6. Lactic acidosis. 7. History of bradycardia secondary to medications. 8. bacteremia low grade fever covid status now neg on 2 check on sq heparin for dvt ppx echo prelim noted no sig abn on tele now sinus no afib or pauses on ecotrin and statin on feeding tolerating per staff on iv vanco planned for 2 weeks hemodynamically stable for the moment last cxr 2 days ago showed no sig abn Subjective ROS Limited/Unobtainable: Yes Subjective per rn no cough lwo grade fever no vomit confused moan groan and yells no diarrhea Objective Last 24 Hour Vital Signs Date Time Temp Pulse Resp B/P (MAP) Pulse Ox O2 Delivery O2 Flow Rate FiO2 12/28/19 12:10 99.1 92 16 126/70 (88) 100 12/28/19 12:00 85 12/28/19 09:00 Room Air 12/28/19 08:41 128/73 12/28/19 08:00 99.3 90 18 128/73 (91) 100 12/28/19 08:00 86 12/28/19 04:00 93 12/28/19 04:00 99.0 92 20 148/87 (107) 95 12/28/19 00:00 98.2 94 20 148/89 (108) 98 12/28/19 00:00 91 12/27/19 21:39 138/98 12/27/19 21:00 Room Air 12/27/19 20:00 98.1 95 20 138/98 (111) 96 12/27/19 20:00 88 12/27/19 16:00 84 12/27/19 16:00 98.2 87 19 152/77 (102) 97 12/27/19 15:35 135/74 General Appearance: patient on isolation, isolation precautions - exam deferred due to covid status Intake and Output 12/27/19 12/28/19 19:00 07:00 Output Total 250 ml 500 ml Balance -250 ml -500 ml Output Urine Total 250 ml 500 ml # Voids 2 3 # Bowel Movements 1 1 Laboratory Tests Test 12/27/19 19:53 Vancomycin Level Trough 22.8 ug/mL (5.0-12.0) H Microbiology Date/Time Source Procedure Growth Status 12/25/19 16:00 Nasopharynx Coronavirus COVID-19 PCR ([facility]) - Final Complete Kendell Rosen MD Dec 28, 2019 13:58
[2019-12-28] MEDS: Nitroglycerin Patch 0.4mg TDERMAL SCH (14:12)
--- NOTE | 2019-12-28 15:34 | Nephrology Progress Note ---
Assessment/Plan Problem List: (1) ROSARIO (acute kidney injury) (2) Dehydration (3) Electrolyte imbalance (4) NSTEMI (non-ST elevated myocardial infarction) (5) COVID-19 virus infection Assessment Acute renal failure Severe dehydration Hypernatremia indicative of free water depletion Hypercalcemia likely due to dehydration Elevated hemoglobin likely secondary to hemoconcentration Elevated troponin Poor p.o. intake / failure to thrive Dementia Hypertension Exposure to COVID-19 Plan Covid19 test positive No chemistry blood work for today IV fluid adjusted Aspirin 2D echocardiogram, results still pending IV Protonix Nitropaste Avoid nephrotoxic's Monitor renal parameters Monitor hemoglobin hematocrit Avoid mind altering medication in view of severe lethargy Per orders Subjective ROS Limited/Unobtainable: No Constitutional: Reports: malaise, weakness Objective Objective Last 24 Hour Vital Signs Date Time Temp Pulse Resp B/P (MAP) Pulse Ox O2 Delivery O2 Flow Rate FiO2 12/28/19 14:12 126/70 12/28/19 12:10 99.1 92 16 126/70 (88) 100 12/28/19 12:00 85 12/28/19 09:00 Room Air 12/28/19 08:41 128/73 12/28/19 08:00 99.3 90 18 128/73 (91) 100 12/28/19 08:00 86 12/28/19 04:00 93 12/28/19 04:00 99.0 92 20 148/87 (107) 95 12/28/19 00:00 98.2 94 20 148/89 (108) 98 12/28/19 00:00 91 12/27/19 21:39 138/98 12/27/19 21:00 Room Air 12/27/19 20:00 98.1 95 20 138/98 (111) 96 12/27/19 20:00 88 12/27/19 16:00 84 12/27/19 16:00 98.2 87 19 152/77 (102) 97 12/27/19 15:35 135/74 Intake and Output 12/27/19 12/28/19 19:00 07:00 Output Total 250 ml 500 ml Balance -250 ml -500 ml Output Urine Total 250 ml 500 ml # Voids 2 3 # Bowel Movements 1 1 Current Medications Medications (Trade) Dose Ordered Sig/Ovi Route PRN Reason Start Time Stop Time Status Last Admin Dose Admin Aspirin (ASA) 81 mg DAILY NG 12/19/19 09:00 02/02/20 08:59 12/28/19 08:45 Atorvastatin Calcium (Lipitor) 20 mg BEDTIME ORAL 12/19/19 21:00 03/18/20 20:59 12/27/19 21:38 Captopril (Capoten) 6.25 mg EVERY 12 HOURS ORAL 12/27/19 10:30 01/24/20 08:59 12/28/19 08:41 Heparin Sodium (Porcine) (Heparin 5000 units/ml) 5,000 units EVERY 12 HOURS SUBQ 12/19/19 21:00 02/02/20 20:59 12/28/19 08:43 Nitroglycerin (Ntg) 1 patch Q24H TDERMAL 12/19/19 14:00 01/14/20 13:59 12/28/19 14:12 Pantoprazole (Protonix) 40 mg Q12HR IVP 12/18/19 21:00 01/14/20 20:59 12/28/19 08:40 Potassium Chloride (K-Dur) 20 meq EVERY 12 HOURS ORAL 12/25/19 21:00 03/15/20 17:59 12/28/19 08:42 Valproic Acid (Depakene) 500 mg EVERY 12 HOURS NG 12/18/19 23:15 01/17/20 23:14 12/28/19 08:42 Vancomycin HCl (Vanco rx to dose) 1 ea DAILY PRN MISC Per rx protocol 12/19/19 12:00 01/18/20 11:59 Vancomycin HCl 750 mg/Sodium Chloride 275 ml @ 183.333 mls/hr Q12HR@0300,1500 IVPB 12/28/19 03:00 01/02/20 02:59 12/28/19 14:07 Laboratory Tests 12/27/19 19:53: Vancomycin Level Trough 22.8H Height (Feet): 5 Height (Inches): 0.00 Weight (Pounds): 148 General Appearance: no apparent distress EENT: other - NGT Cardiovascular: tachycardia Respiratory/Chest: decreased breath sounds Abdomen: soft Objective No change Robert Foreman MD Dec 28, 2019 15:34
[2019-12-28 16:00] VITALS: BP 141/71
[2019-12-28 17:28] LABS: BASOPHILS % (AUTO) 0.8 % (0.0-2.0); EOSINOPHILS % (AUTO) 0.2 % (0.0-3.0); HEMATOCRIT 34.5 % (37.0-47.0); HEMOGLOBIN 11.1 G/DL (12.0-16.0); LYMPHOCYTES % (AUTO) 13.3 % (20.0-45.0); MEAN CORPUSCULAR VOLUME 99 FL (80-99); MONOCYTES % (AUTO) 10.9 % (1.0-10.0); NEUTROPHILS % (AUTO) 74.8 % (45.0-75.0); PLATELET COUNT 231 K/UL (150-450); RED BLOOD COUNT 3.48 M/UL (4.20-5.40); RED CELL DISTRIBUTION WIDTH 14.1 % (11.6-14.8); WHITE BLOOD COUNT 11.5 K/UL (4.8-10.8)
--- NOTE | 2019-12-28 17:58 | Infectious Diseases Prog Note ---
Assessment/Plan Problems: (1) Sepsis Assessment & Plan: with Staphylococcus epidermidis grew out of four bottles from both sets, source ? continue vancomycin for two weeks, repeated blood culture is growing staph spp from one bottle , possible contaminants. EOT 01/02/20 (2) COVID-19 virus infection Assessment & Plan: keep in enhanced droplet isolation, S/P hydroxychloroquin with zinc and vitamin C for five days total.repeated PCR test times two so far is negative. (3) Viral pneumonia Assessment & Plan: due to COVID 19, S/P hydroxychloroquine , with zinc and vitamin C for five days, Repeated PCR test is negative (4) ROSARIO (acute kidney injury) Assessment & Plan: suspect due to dehydration and poor oral intake improving monitor renal function avoid nephrotoxic's (5) NSTEMI (non-ST elevated myocardial infarction) Assessment & Plan: could be due to COVID 19, cardiology is following monitor troponin level Subjective ROS Limited/Unobtainable: Yes Allergies: Coded Allergies: MEMANTINE (Unverified Allergy, Unknown, 12/15/19) SERTRALINE (Unverified Allergy, Unknown, 12/15/19) Subjective she was resting in bed in SDU, unresponsive, no fever today, no SOB, confused , receiving meds though NGT , no agitation , sating well on room air Objective Vital Signs Last 24 Hour Vital Signs Date Time Temp Pulse Resp B/P (MAP) Pulse Ox O2 Delivery O2 Flow Rate FiO2 12/28/19 16:00 98.8 91 16 141/71 (94) 96 12/28/19 16:00 92 12/28/19 14:12 126/70 12/28/19 12:10 99.1 92 16 126/70 (88) 100 12/28/19 12:00 85 12/28/19 09:00 Room Air 12/28/19 08:41 128/73 12/28/19 08:00 99.3 90 18 128/73 (91) 100 12/28/19 08:00 86 12/28/19 04:00 93 12/28/19 04:00 99.0 92 20 148/87 (107) 95 12/28/19 00:00 98.2 94 20 148/89 (108) 98 12/28/19 00:00 91 12/27/19 21:39 138/98 12/27/19 21:00 Room Air 12/27/19 20:00 98.1 95 20 138/98 (111) 96 12/27/19 20:00 88 Height (Feet): 5 Height (Inches): 0.00 Weight (Pounds): 148 General Appearance: WD/WN, no acute distress HEENT: normocephalic, atraumatic, anicteric, mucous membranes moist, PERRL Respiratory/Chest: chest wall non-tender, no respiratory distress, no accessory muscle use, decreased breath sounds, crackles/rales Cardiovascular: normal peripheral pulses, normal rate, regular rhythm, no gallop/murmur, no JVD Abdomen: normal bowel sounds, soft, non tender, no organomegaly, non distended , no mass, no scars Genitourinary: normal external genitalia Extremities: no cyanosis, no clubbing Skin: no rash, no lesions 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: unresponsiveness Lymphatic: no neck adenopathy, no groin adenopathy Musculoskeletal: normal muscle bulk Laboratory Tests Test 12/27/19 19:53 12/28/19 17:15 Vancomycin Level Trough 22.8 ug/mL (5.0-12.0) H White Blood Count 11.5 K/UL (4.8-10.8) H Red Blood Count 3.48 M/UL (4.20-5.40) L Hemoglobin 11.1 G/DL (12.0-16.0) L Hematocrit 34.5 % (37.0-47.0) L Mean Corpuscular Volume 99 FL (80-99) Mean Corpuscular Hemoglobin 31.7 PG (27.0-31.0) H Mean Corpuscular Hemoglobin Concent 32.0 G/DL (32.0-36.0) Red Cell Distribution Width 14.1 % (11.6-14.8) Platelet Count 231 K/UL (150-450) Mean Platelet Volume 7.8 FL (6.5-10.1) Neutrophils (%) (Auto) 74.8 % (45.0-75.0) Lymphocytes (%) (Auto) 13.3 % (20.0-45.0) L Monocytes (%) (Auto) 10.9 % (1.0-10.0) H Eosinophils (%) (Auto) 0.2 % (0.0-3.0) Basophils (%) (Auto) 0.8 % (0.0-2.0) Current Medications Medications (Trade) Dose Ordered Sig/Ovi Route PRN Reason Start Time Stop Time Status Last Admin Dose Admin Aspirin (ASA) 81 mg DAILY NG 12/19/19 09:00 02/02/20 08:59 12/28/19 08:45 Atorvastatin Calcium (Lipitor) 20 mg BEDTIME ORAL 12/19/19 21:00 03/18/20 20:59 12/27/19 21:38 Captopril (Capoten) 6.25 mg EVERY 12 HOURS ORAL 12/27/19 10:30 01/24/20 08:59 12/28/19 08:41 Heparin Sodium (Porcine) (Heparin 5000 units/ml) 5,000 units EVERY 12 HOURS SUBQ 12/19/19 21:00 02/02/20 20:59 12/28/19 08:43 Nitroglycerin (Ntg) 1 patch Q24H TDERMAL 12/19/19 14:00 01/14/20 13:59 12/28/19 14:12 Pantoprazole (Protonix) 40 mg Q12HR IVP 12/18/19 21:00 01/14/20 20:59 12/28/19 08:40 Potassium Chloride (K-Dur) 20 meq EVERY 12 HOURS ORAL 12/25/19 21:00 03/15/20 17:59 12/28/19 08:42 Valproic Acid (Depakene) 500 mg EVERY 12 HOURS NG 12/18/19 23:15 01/17/20 23:14 12/28/19 08:42 Vancomycin HCl (Vanco rx to dose) 1 ea DAILY PRN MISC Per rx protocol 12/19/19 12:00 01/18/20 11:59 Vancomycin HCl 750 mg/Sodium Chloride 275 ml @ 183.333 mls/hr Q12HR@0300,1500 IVPB 12/28/19 03:00 01/02/20 02:59 12/28/19 14:07 Sukhjinder Howell M.D. Dec 28, 2019 17:58
[2019-12-28 20:00] VITALS: BP 132/79
[2019-12-28] MEDS: Atorvastatin 20mg tab ORAL SCH (21:51)
[2019-12-29] VITALS: BP 117/72
[2019-12-29 04:00] VITALS: BP 134/78
[2019-12-29] MEDS: Vancomycin 750 MG in NS 275 ML IVPB SCH ×2 (04:27→14:55)
[2019-12-29 07:24] LABS: ANION GAP 7 mmol/L (5-15); BLOOD UREA NITROGEN 24 mg/dL (7-18); CALCIUM 8.4 MG/DL (8.5-10.1); CARBON DIOXIDE 26 MMOL/L (21-32); CHLORIDE 111 MMOL/L (98-107); CREATININE 0.8 MG/DL (0.55-1.30); POTASSIUM 4.9 MMOL/L (3.5-5.1); SODIUM 144 MMOL/L (136-145)
[2019-12-29 08:00] VITALS: BP 139/77
[2019-12-29] MEDS: Pantoprazole Inj IVP SCH (09:11)
[2019-12-29] MEDS: Captopril 25mg tab ORAL SCH (09:12)
[2019-12-29] MEDS: Valproic Acid 250mg/5ml Liquid NG SCH ×2 (09:13→21:00)
[2019-12-29] MEDS: Aspirin Baby 81mg NG SCH (09:15)
[2019-12-29] MEDS: Heparin 5000 units/ml inj SUBQ SCH ×2 (09:15→21:00)
[2019-12-29 09:59] LABS: BASOPHILS % (AUTO) 0.5 % (0.0-2.0); EOSINOPHILS % (AUTO) 0.5 % (0.0-3.0); HEMATOCRIT 31.6 % (37.0-47.0); HEMOGLOBIN 10.9 G/DL (12.0-16.0); LYMPHOCYTES % (AUTO) 22.6 % (20.0-45.0); MEAN CORPUSCULAR VOLUME 92 FL (80-99); MONOCYTES % (AUTO) 8.2 % (1.0-10.0); NEUTROPHILS % (AUTO) 68.2 % (45.0-75.0); PLATELET COUNT 251 K/UL (150-450); RED BLOOD COUNT 3.42 M/UL (4.20-5.40); RED CELL DISTRIBUTION WIDTH 12.1 % (11.6-14.8); WHITE BLOOD COUNT 12.4 K/UL (4.8-10.8)
[2019-12-29 12:00] VITALS: BP 154/62
--- NOTE | 2019-12-29 13:20 | Pulmonology Progress Note ---
Matt Marge PARTNERSHIP DEVELOPMENT MANAGER 12/29/19 1320: Assessment/Plan Assessment/Plan PROBLEMS Confirmed COVID-19 virus infection Viral pneumonia Electrolyte imbalance NSTEMI (non-ST elevated myocardial infarction) Encephalopathy (Dehydration ROSARIO (acute kidney injury) Staphylococcus epidermidis bacteremia Assessment/Plan Confirmed CoVID 19 infection Acute hypoxemic respiratory failure S epidermis bacteremia Acute renal failure - RESOLVED Severe dehydration - IMPROVED Hypernatremia indicative of free water depletion Hypercalcemia likely due to dehydration Elevated hemoglobin likely secondary to hemoconcentration Elevated troponin/NSTEMI Poor p.o. intake / failure to thrive Dementia Hypertension Generalized anxiety disorder Dysphagia Plan: * COVID-19 isolation status, confirmed 12/14, * repeat COVID 12/21- NGT and 12/24 -> off isolation * on tele now * monitor oxygenation closely, on RA or only on 1-2L nasal cannula * CXR prn only if worsening symptoms, CXR 12/16 clear lungs * fup CXR 12/25 done , given mild leukocytosis -no acute findings * mild leukocytosis * Vanco per ID, need 2 wks for Staph epidermidis ( repeated BCX 12/20 still + with Staph epidermidis 09/02) * Completed 5 days of Plaquenil * s/p IVF , nephro on board * Monitor electrolytes and renal parameters * TTE per cardio * on a/PLT therapy with ASA, statin , [facility] for afterload reduction * NPO, NGTF's, FACILITY REHAB DIRECTOR eval , , strict aspiration precautions, unable to participate in swallow eval * will need either G tube or palliative care * Cont depakote 500 mg bid from SNF * DVT ppx: heparin SQ * Full Code per prior documented ECP notes * Dr Toledo spoke with daughter Dayna Milton 12/27 ([phone]) and discussed further goals of care, she will need to discuss with otehr family memebrs and will get back to us Prophylaxis: Heparin SQ Disposition: downgraded to tele Time Spent (Minutes): 35 Notes Reviewed: cardio, renal, ID Discussed with: nurses, consultants case discussed and evaluated by supervising physician Subjective ROS Limited/Unobtainable: Yes Interval Events: Allergies: Coded Allergies: MEMANTINE (Unverified Allergy, Unknown, 12/15/19) SERTRALINE (Unverified Allergy, Unknown, 12/15/19) Subjective SARS- CoV -2 by PCR 12/21 and 12/24 not detected creat stable no fevers , mild leukocytosis this am, trop trending down Objective Last 24 Hour Vital Signs Date Time Temp Pulse Resp B/P (MAP) Pulse Ox O2 Delivery O2 Flow Rate FiO2 12/29/19 12:00 97.0 84 18 154/62 (92) 97 12/29/19 12:00 84 12/29/19 09:12 139/77 12/29/19 09:00 Room Air 12/29/19 08:00 73 12/29/19 08:00 98.2 79 18 139/77 (97) 96 12/29/19 04:00 97.7 81 22 134/78 (96) 97 12/29/19 04:00 72 12/29/19 00:00 98.2 91 16 117/72 (87) 96 12/29/19 00:00 76 12/28/19 21:52 132/79 12/28/19 21:00 Room Air 12/28/19 20:00 87 12/28/19 20:00 98.1 86 22 132/79 (96) 98 12/28/19 16:00 98.8 91 16 141/71 (94) 96 12/28/19 16:00 92 12/28/19 14:12 126/70 Intake and Output 12/28/19 12/29/19 19:00 07:00 Intake Total 50 ml Output Total 300 ml 400 ml Balance -300 ml -350 ml Tube Feeding 50 ml Output Urine Total 300 ml 400 ml # Bowel Movements 1 Objective General Appearance: WD/WN, no acute distress elderly female HEENT: normocephalic, atraumatic, anicteric, mucous membranes moist, PERRL, NGT Respiratory/Chest: few scattered rhonchi Cardiovascular: normal peripheral pulses, normal rate, regular rhythm, SR on tele Abdomen: normal bowel sounds, soft, non tender, non distended, no mass, no scars Genitourinary: normal external genitalia Extremities: no cyanosis, no clubbing Skin: no rash, no lesions, no ulcers 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: family member caretaker II-XII grossly normal, alert, open eyes spontaneously but not- responsive Lymphatic: no neck adenopathy, no groin adenopathy Musculoskeletal: normal muscle bulk, no effusion 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: unresponsiveness Laboratory Tests 12/28/19 17:15: White Blood Count 11.5H, Red Blood Count 3.48L, Hemoglobin 11.1L, Hematocrit 34.5L, Mean Corpuscular Volume 99, Mean Corpuscular Hemoglobin 31.7H, Mean Corpuscular Hemoglobin Concent 32.0, Red Cell Distribution Width 14.1, Platelet Count 231, Mean Platelet Volume 7.8, Neutrophils (%) (Auto) 74.8, Lymphocytes (% ) (Auto) 13.3L, Monocytes (%) (Auto) 10.9H, Eosinophils (%) (Auto) 0.2, Basophils (%) (Auto) 0.8 12/29/19 06:34: Sodium Level 144, Potassium Level 4.9, Chloride Level 111H, Carbon Dioxide Level 26, Anion Gap 7, Blood Urea Nitrogen 24H, Creatinine 0.8, Estimat Glomerular Filtration Rate > 60, Glucose Level 140H, Calcium Level 8.4L 12/29/19 09:45: White Blood Count 12.4H, Red Blood Count 3.42L, Hemoglobin 10.9L, Hematocrit 31.6L, Mean Corpuscular Volume 92, Mean Corpuscular Hemoglobin 31.7H, Mean Corpuscular Hemoglobin Concent 34.3, Red Cell Distribution Width 12.1, Platelet Count 251, Mean Platelet Volume 6.8, Neutrophils (%) (Auto) 68.2, Lymphocytes (% ) (Auto) 22.6, Monocytes (%) (Auto) 8.2, Eosinophils (%) (Auto) 0.5, Basophils ( %) (Auto) 0.5 Current Medications Medications (Trade) Dose Ordered Sig/Ovi Route PRN Reason Start Time Stop Time Status Last Admin Dose Admin Aspirin (ASA) 81 mg DAILY NG 12/19/19 09:00 02/02/20 08:59 12/29/19 09:15 Atorvastatin Calcium (Lipitor) 20 mg BEDTIME ORAL 12/19/19 21:00 03/18/20 20:59 12/28/19 21:51 Captopril (Capoten) 6.25 mg EVERY 12 HOURS ORAL 12/29/19 21:00 01/24/20 20:59 Heparin Sodium (Porcine) (Heparin 5000 units/ml) 5,000 units EVERY 12 HOURS SUBQ 12/19/19 21:00 02/02/20 20:59 4/29/20 09:15 Nitroglycerin (Ntg) 1 patch Q24H TDERMAL 12/19/19 14:00 01/14/20 13:59 12/28/19 14:12 Pantoprazole (Protonix) 40 mg Q12HR IVP 12/18/19 21:00 01/14/20 20:59 12/29/19 09:11 Potassium Chloride (K-Dur) 20 meq EVERY 12 HOURS ORAL 12/25/19 21:00 03/15/20 17:59 12/29/19 09:13 Valproic Acid (Depakene) 500 mg EVERY 12 HOURS NG 12/18/19 23:15 01/17/20 23:14 12/29/19 09:13 Vancomycin HCl (Vanco rx to dose) 1 ea DAILY PRN MISC Per rx protocol 12/19/19 12:00 01/18/20 11:59 Vancomycin HCl 750 mg/Sodium Chloride 275 ml @ 183.333 mls/hr Q12HR@0300,1500 IVPB 12/28/19 03:00 01/02/20 02:59 12/29/19 04:27 Boby Toledo MD 12/29/19 1721: Assessment/Plan Assessment/Plan Patient seen and examined with PARTNERSHIP DEVELOPMENT MANAGER, agree with A&P as outlined above as it reflects our joint deliberations. Discussed again @ length with daughter Dayna Milton again this afternoon. The family is still undecided and are having ongoing discussions amongst themselves. Subjective Allergies: Coded Allergies: MEMANTINE (Unverified Allergy, Unknown, 12/15/19) SERTRALINE (Unverified Allergy, Unknown, 12/15/19) Marge Gutierrez NP Dec 29, 2019 13:20 Boby Toledo MD Dec 29, 2019 17:21
--- NOTE | 2019-12-29 14:00 | Nephrology Progress Note ---
Assessment/Plan Problem List: (1) ROSARIO (acute kidney injury) (2) Dehydration (3) Electrolyte imbalance (4) NSTEMI (non-ST elevated myocardial infarction) (5) COVID-19 virus infection Assessment Acute renal failure Severe dehydration Hypernatremia indicative of free water depletion Hypercalcemia likely due to dehydration Elevated hemoglobin likely secondary to hemoconcentration Elevated troponin Poor p.o. intake / failure to thrive Dementia Hypertension Exposure to COVID-19 Plan Covid19 test positive Discontinue potassium chloride p.o. IV Protonix to Prevacid via NG tube Aspirin 2D echocardiogram, results still pending IV Protonix Nitropaste Avoid nephrotoxic's Monitor renal parameters Monitor hemoglobin hematocrit Avoid mind altering medication in view of severe lethargy Per orders Subjective ROS Limited/Unobtainable: No Objective Objective Last 24 Hour Vital Signs Date Time Temp Pulse Resp B/P (MAP) Pulse Ox O2 Delivery O2 Flow Rate FiO2 12/29/19 12:00 97.0 84 18 154/62 (92) 97 12/29/19 12:00 84 12/29/19 09:12 139/77 12/29/19 09:00 Room Air 12/29/19 08:00 73 12/29/19 08:00 98.2 79 18 139/77 (97) 96 12/29/19 04:00 97.7 81 22 134/78 (96) 97 12/29/19 04:00 72 12/29/19 00:00 98.2 91 16 117/72 (87) 96 12/29/19 00:00 76 12/28/19 21:52 132/79 12/28/19 21:00 Room Air 12/28/19 20:00 87 12/28/19 20:00 98.1 86 22 132/79 (96) 98 12/28/19 16:00 98.8 91 16 141/71 (94) 96 12/28/19 16:00 92 12/28/19 14:12 126/70 Intake and Output 12/28/19 12/29/19 19:00 07:00 Intake Total 50 ml Output Total 300 ml 400 ml Balance -300 ml -350 ml Tube Feeding 50 ml Output Urine Total 300 ml 400 ml # Bowel Movements 1 Current Medications Medications (Trade) Dose Ordered Sig/Ovi Route PRN Reason Start Time Stop Time Status Last Admin Dose Admin Aspirin (ASA) 81 mg DAILY NG 12/19/19 09:00 02/02/20 08:59 12/29/19 09:15 Atorvastatin Calcium (Lipitor) 20 mg BEDTIME ORAL 12/19/19 21:00 03/18/20 20:59 12/28/19 21:51 Captopril (Capoten) 6.25 mg EVERY 12 HOURS ORAL 12/29/19 21:00 01/24/20 20:59 Heparin Sodium (Porcine) (Heparin 5000 units/ml) 5,000 units EVERY 12 HOURS SUBQ 12/19/19 21:00 02/02/20 20:59 12/29/19 09:15 Nitroglycerin (Ntg) 1 patch Q24H TDERMAL 12/19/19 14:00 01/14/20 13:59 12/28/19 14:12 Pantoprazole (Protonix) 40 mg Q12HR IVP 12/18/19 21:00 01/14/20 20:59 12/29/19 09:11 Valproic Acid (Depakene) 500 mg EVERY 12 HOURS NG 12/18/19 23:15 01/17/20 23:14 12/29/19 09:13 Vancomycin HCl (Vanco rx to dose) 1 ea DAILY PRN MISC Per rx protocol 12/19/19 12:00 01/18/20 11:59 Vancomycin HCl 750 mg/Sodium Chloride 275 ml @ 183.333 mls/hr Q12HR@0300,1500 IVPB 12/28/19 03:00 01/02/20 02:59 12/29/19 04:27 Laboratory Tests 12/28/19 17:15: White Blood Count 11.5H, Red Blood Count 3.48L, Hemoglobin 11.1L, Hematocrit 34.5L, Mean Corpuscular Volume 99, Mean Corpuscular Hemoglobin 31.7H, Mean Corpuscular Hemoglobin Concent 32.0, Red Cell Distribution Width 14.1, Platelet Count 231, Mean Platelet Volume 7.8, Neutrophils (%) (Auto) 74.8, Lymphocytes (% ) (Auto) 13.3L, Monocytes (%) (Auto) 10.9H, Eosinophils (%) (Auto) 0.2, Basophils (%) (Auto) 0.8 12/29/19 06:34: Sodium Level 144, Potassium Level 4.9, Chloride Level 111H, Carbon Dioxide Level 26, Anion Gap 7, Blood Urea Nitrogen 24H, Creatinine 0.8, Estimat Glomerular Filtration Rate > 60, Glucose Level 140H, Calcium Level 8.4L 12/29/19 09:45: White Blood Count 12.4H, Red Blood Count 3.42L, Hemoglobin 10.9L, Hematocrit 31.6L, Mean Corpuscular Volume 92, Mean Corpuscular Hemoglobin 31.7H, Mean Corpuscular Hemoglobin Concent 34.3, Red Cell Distribution Width 12.1, Platelet Count 251, Mean Platelet Volume 6.8, Neutrophils (%) (Auto) 68.2, Lymphocytes (% ) (Auto) 22.6, Monocytes (%) (Auto) 8.2, Eosinophils (%) (Auto) 0.5, Basophils ( %) (Auto) 0.5 Height (Feet): 5 Height (Inches): 0.00 Weight (Pounds): 148 General Appearance: no apparent distress, lethargic Cardiovascular: tachycardia Respiratory/Chest: decreased breath sounds Abdomen: soft Objective No change Robert Foreman MD Dec 29, 2019 14:00
[2019-12-29] MEDS: Nitroglycerin Patch 0.4mg TDERMAL SCH (14:53)
[2019-12-29 16:00] VITALS: BP 131/70
--- NOTE | 2019-12-29 16:05 | Infectious Diseases Prog Note ---
Assessment/Plan Problems: (1) Sepsis Assessment & Plan: with Staphylococcus epidermidis grew out of four bottles from both sets, source ? continue vancomycin for two weeks total , repeated blood culture grew the same organism but from one bottle only most likely contaminants. EOT 01/02/20 (2) COVID-19 virus infection Assessment & Plan: keep in enhanced droplet isolation, S/P hydroxychloroquin with zinc and vitamin C for five days total.repeated PCR test times two so far is negative. (3) Viral pneumonia Assessment & Plan: due to COVID 19, S/P hydroxychloroquine , with zinc and vitamin C for five days, Repeated PCR test is negative (4) ROSARIO (acute kidney injury) Assessment & Plan: suspect due to dehydration and poor oral intake improving monitor renal function avoid nephrotoxic's (5) NSTEMI (non-ST elevated myocardial infarction) Assessment & Plan: could be due to COVID 19, cardiology is following monitor troponin level Subjective ROS Limited/Unobtainable: Yes Allergies: Coded Allergies: MEMANTINE (Unverified Allergy, Unknown, 12/15/19) SERTRALINE (Unverified Allergy, Unknown, 12/15/19) Subjective she was laying in bed, responsive only to touch, as in follow commands, no fever today, no SOB, confused , receiving meds though NGT , no agitation , sating well on room air Objective Vital Signs Last 24 Hour Vital Signs Date Time Temp Pulse Resp B/P (MAP) Pulse Ox O2 Delivery O2 Flow Rate FiO2 12/29/19 14:53 154/62 12/29/19 12:00 97.0 84 18 154/62 (92) 97 12/29/19 12:00 84 12/29/19 09:12 139/77 12/29/19 09:00 Room Air 12/29/19 08:00 73 12/29/19 08:00 98.2 79 18 139/77 (97) 96 12/29/19 04:00 97.7 81 22 134/78 (96) 97 12/29/19 04:00 72 12/29/19 00:00 98.2 91 16 117/72 (87) 96 12/29/19 00:00 76 12/28/19 21:52 132/79 12/28/19 21:00 Room Air 12/28/19 20:00 87 12/28/19 20:00 98.1 86 22 132/79 (96) 98 12/28/19 16:00 98.8 91 16 141/71 (94) 96 12/28/19 16:00 92 Height (Feet): 5 Height (Inches): 0.00 Weight (Pounds): 148 General Appearance: WD/WN, no acute distress HEENT: normocephalic, atraumatic, anicteric, mucous membranes moist, PERRL Respiratory/Chest: chest wall non-tender, no respiratory distress, no accessory muscle use, decreased breath sounds, crackles/rales Cardiovascular: normal peripheral pulses, normal rate, regular rhythm, no gallop/murmur, no JVD Abdomen: normal bowel sounds, soft, non tender, no organomegaly, non distended , no mass, no scars Genitourinary: normal external genitalia Extremities: no cyanosis, no clubbing Skin: no rash, no lesions, no ulcers 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: carcass washer II-XII grossly normal, alert, responsive Lymphatic: no neck adenopathy, no groin adenopathy Musculoskeletal: normal muscle bulk, no effusion Laboratory Tests Test 12/28/19 17:15 12/29/19 06:34 12/29/19 09:45 12/29/19 14:00 White Blood Count 11.5 K/UL (4.8-10.8) H 12.4 K/UL (4.8-10.8) H Red Blood Count 3.48 M/UL (4.20-5.40) L 3.42 M/UL (4.20-5.40) L Hemoglobin 11.1 G/DL (12.0-16.0) L 10.9 G/DL (12.0-16.0) L Hematocrit 34.5 % (37.0-47.0) L 31.6 % (37.0-47.0) L Mean Corpuscular Volume 99 FL (80-99) 92 FL (80-99) Mean Corpuscular Hemoglobin 31.7 PG (27.0-31.0) H 31.7 PG (27.0-31.0) H Mean Corpuscular Hemoglobin Concent 32.0 G/DL (32.0-36.0) 34.3 G/DL (32.0-36.0) Red Cell Distribution Width 14.1 % (11.6-14.8) 12.1 % (11.6-14.8) Platelet Count 231 K/UL (150-450) 251 K/UL (150-450) Mean Platelet Volume 7.8 FL (6.5-10.1) 6.8 FL (6.5-10.1) Neutrophils (%) (Auto) 74.8 % (45.0-75.0) 68.2 % (45.0-75.0) Lymphocytes (%) (Auto) 13.3 % (20.0-45.0) L 22.6 % (20.0-45.0) Monocytes (%) (Auto) 10.9 % (1.0-10.0) H 8.2 % (1.0-10.0) Eosinophils (%) (Auto) 0.2 % (0.0-3.0) 0.5 % (0.0-3.0) Basophils (%) (Auto) 0.8 % (0.0-2.0) 0.5 % (0.0-2.0) Sodium Level 144 MMOL/L (136-145) Potassium Level 4.9 MMOL/L (3.5-5.1) Chloride Level 111 MMOL/L (98-107) H Carbon Dioxide Level 26 MMOL/L (21-32) Anion Gap 7 mmol/L (5-15) Blood Urea Nitrogen 24 mg/dL (7-18) H Creatinine 0.8 MG/DL (0.55-1.30) Estimat Glomerular Filtration Rate > 60 mL/min (>60) Glucose Level 140 MG/DL (74-106) H Calcium Level 8.4 MG/DL (8.5-10.1) L Vancomycin Level Trough 17.1 ug/mL (5.0-12.0) H Current Medications Medications (Trade) Dose Ordered Sig/Ovi Route PRN Reason Start Time Stop Time Status Last Admin Dose Admin Aspirin (ASA) 81 mg DAILY NG 12/19/19 09:00 02/02/20 08:59 12/29/19 09:15 Atorvastatin Calcium (Lipitor) 20 mg BEDTIME ORAL 12/19/19 21:00 03/18/20 20:59 12/28/19 21:51 Captopril (Capoten) 6.25 mg EVERY 12 HOURS ORAL 12/29/19 21:00 01/24/20 20:59 Heparin Sodium (Porcine) (Heparin 5000 units/ml) 5,000 units EVERY 12 HOURS SUBQ 12/19/19 21:00 02/02/20 20:59 12/29/19 09:15 Lansoprazole (Prevacid) 30 mg BID NG 12/29/19 18:00 01/28/20 17:59 Nitroglycerin (Ntg) 1 patch Q24H TDERMAL 12/19/19 14:00 01/14/20 13:59 12/29/19 14:53 Valproic Acid (Depakene) 500 mg EVERY 12 HOURS NG 12/18/19 23:15 01/17/20 23:14 12/29/19 09:13 Vancomycin HCl (Vanco rx to dose) 1 ea DAILY PRN MISC Per rx protocol 12/19/19 12:00 01/18/20 11:59 Vancomycin HCl 750 mg/Sodium Chloride 275 ml @ 183.333 mls/hr Q12HR@0300,1500 IVPB 12/28/19 03:00 01/02/20 02:59 12/29/19 14:55 Sukhjinder Howell M.D. Dec 29, 2019 16:05
--- NOTE | 2019-12-29 16:32 | Cardiology Progress Note ---
Assessment/Plan Assessment/Plan 1. [id number] myocardial infarction,related to demand vs from covid induced myonecrosis , doubt plaque rupture or cytokine storm 2. Acute renal failure in the setting of volume depletion. 3. Hypernatremia secondary to volume depletion. 4. 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 5. Dementia. 6. Lactic acidosis. 7. History of bradycardia secondary to medications. 8. bacteremia no fever covid status now neg on 2 check on sq heparin for dvt ppx echo prelim noted no sig abn on tele now sinus no afib or pauses on ecotrin and statin on feeding tolerating per staff on iv vanco planned for 2 weeks hemodynamically stable for the moment awiat family decision regarding hospice which will help decision regarding g tube Subjective ROS Limited/Unobtainable: Yes Subjective per rn no cough no fever no vomit confused moan groan and yells no diarrhea Objective Last 24 Hour Vital Signs Date Time Temp Pulse Resp B/P (MAP) Pulse Ox O2 Delivery O2 Flow Rate FiO2 12/29/19 14:53 154/62 12/29/19 12:00 97.0 84 18 154/62 (92) 97 12/29/19 12:00 84 12/29/19 09:12 139/77 12/29/19 09:00 Room Air 12/29/19 08:00 73 12/29/19 08:00 98.2 79 18 139/77 (97) 96 12/29/19 04:00 97.7 81 22 134/78 (96) 97 12/29/19 04:00 72 12/29/19 00:00 98.2 91 16 117/72 (87) 96 12/29/19 00:00 76 12/28/19 21:52 132/79 12/28/19 21:00 Room Air 12/28/19 20:00 87 12/28/19 20:00 98.1 86 22 132/79 (96) 98 General Appearance: other - deferred due to covid + status Intake and Output 12/28/19 12/29/19 19:00 07:00 Intake Total 50 ml Output Total 300 ml 400 ml Balance -300 ml -350 ml Tube Feeding 50 ml Output Urine Total 300 ml 400 ml # Bowel Movements 1 Laboratory Tests Test 12/28/19 17:15 12/29/19 06:34 12/29/19 09:45 12/29/19 14:00 White Blood Count 11.5 K/UL (4.8-10.8) H 12.4 K/UL (4.8-10.8) H Red Blood Count 3.48 M/UL (4.20-5.40) L 3.42 M/UL (4.20-5.40) L Hemoglobin 11.1 G/DL (12.0-16.0) L 10.9 G/DL (12.0-16.0) L Hematocrit 34.5 % (37.0-47.0) L 31.6 % (37.0-47.0) L Mean Corpuscular Volume 99 FL (80-99) 92 FL (80-99) Mean Corpuscular Hemoglobin 31.7 PG (27.0-31.0) H 31.7 PG (27.0-31.0) H Mean Corpuscular Hemoglobin Concent 32.0 G/DL (32.0-36.0) 34.3 G/DL (32.0-36.0) Red Cell Distribution Width 14.1 % (11.6-14.8) 12.1 % (11.6-14.8) Platelet Count 231 K/UL (150-450) 251 K/UL (150-450) Mean Platelet Volume 7.8 FL (6.5-10.1) 6.8 FL (6.5-10.1) Neutrophils (%) (Auto) 74.8 % (45.0-75.0) 68.2 % (45.0-75.0) Lymphocytes (%) (Auto) 13.3 % (20.0-45.0) L 22.6 % (20.0-45.0) Monocytes (%) (Auto) 10.9 % (1.0-10.0) H 8.2 % (1.0-10.0) Eosinophils (%) (Auto) 0.2 % (0.0-3.0) 0.5 % (0.0-3.0) Basophils (%) (Auto) 0.8 % (0.0-2.0) 0.5 % (0.0-2.0) Sodium Level 144 MMOL/L (136-145) Potassium Level 4.9 MMOL/L (3.5-5.1) Chloride Level 111 MMOL/L (98-107) H Carbon Dioxide Level 26 MMOL/L (21-32) Anion Gap 7 mmol/L (5-15) Blood Urea Nitrogen 24 mg/dL (7-18) H Creatinine 0.8 MG/DL (0.55-1.30) Estimat Glomerular Filtration Rate > 60 mL/min (>60) Glucose Level 140 MG/DL (74-106) H Calcium Level 8.4 MG/DL (8.5-10.1) L Vancomycin Level Trough 17.1 ug/mL (5.0-12.0) H Kendell Rosen MD Dec 29, 2019 16:32
[2019-12-29 20:00] VITALS: BP 133/82
[2019-12-29] MEDS: Captopril 12.5mg tab ORAL SCH (21:00)
[2019-12-29] MEDS: Atorvastatin 20mg tab ORAL SCH (21:00)
[2019-12-30] VITALS: BP 127/68
[2019-12-30] MEDS: Vancomycin 750 MG in NS 275 ML IVPB SCH ×2 (03:00→14:43)
[2019-12-30 04:00] VITALS: BP 129/97
[2019-12-30 07:45] LABS: BASOPHILS % (AUTO) 1.5 % (0.0-2.0); EOSINOPHILS % (AUTO) 0.8 % (0.0-3.0); HEMATOCRIT 23.5 % (37.0-47.0); LYMPHOCYTES % (AUTO) 19.8 % (20.0-45.0); MEAN CORPUSCULAR VOLUME 93 FL (80-99); MONOCYTES % (AUTO) 8.8 % (1.0-10.0); NEUTROPHILS % (AUTO) 69.1 % (45.0-75.0); PLATELET COUNT 155 K/UL (150-450); RED BLOOD COUNT 2.52 M/UL (4.20-5.40); RED CELL DISTRIBUTION WIDTH 12.3 % (11.6-14.8); WHITE BLOOD COUNT 8.4 K/UL (4.8-10.8)
[2019-12-30 08:00] VITALS: BP 143/65
--- NOTE | 2019-12-30 08:24 | Pulmonology Progress Note ---
MattMarge CRATE BUILDER 12/30/19 0823: Assessment/Plan Assessment/Plan PROBLEMS Confirmed COVID-19 virus infection Viral pneumonia Electrolyte imbalance NSTEMI (non-ST elevated myocardial infarction) Encephalopathy (Dehydration ROSARIO (acute kidney injury) Staphylococcus epidermidis bacteremia Anemia Assessment/Plan Confirmed CoVID 19 infection Acute hypoxemic respiratory failure-resolved S epidermis bacteremia Acute renal failure - RESOLVED Severe dehydration - IMPROVED Hypernatremia indicative of free water depletion Hypercalcemia likely due to dehydration Elevated hemoglobin likely secondary to hemoconcentration Elevated troponin/NSTEMI Poor p.o. intake / failure to thrive Dementia Hypertension Generalized anxiety disorder Dysphagia Anemia Plan: * COVID-19 isolation status, confirmed 12/14, * repeat COVID 12/21- NGT and 12/24 -> off isolation * on tele now * monitor oxygenation closely, on RA or only on 1-2L nasal cannula * CXR prn only if worsening symptoms, CXR 12/16 clear lungs * fup CXR 12/25 done , given mild leukocytosis -no acute findings * mild leukocytosis 12/28 resolved * Vanco per ID, need 2 wks for Staph epidermidis ( repeated BCX 12/20 still + with Staph epidermidis 09/02) * Completed 5 days of Plaquenil * s/p IVF , nephro on board * Monitor electrolytes and renal parameters * TTE per cardio * on a/PLT therapy with ASA, statin , [facility] for afterload reduction * NPO, NGTF's, 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 , , strict aspiration precautions, unable to participate in swallow eval * will need either G tube or palliative care * Cont depakote 500 mg bid from SNF * DVT ppx: heparin SQ * Hgb down to 8 this am, get stool OB , iron panel B 12, folate, * monitor hH with goal to keep Hgb above 7 * Full Code per prior documented ECP notes * Dr Toledo spoke with daughter Dayna Milton 12/27 ([phone]) and discussed further goals of care, she will need to discuss with other family members and will get back to us: either PEG palcement or pallative care Prophylaxis: Heparin SQ Disposition: downgraded to tele Time Spent (Minutes): 35 Notes Reviewed: cardio, renal, ID Discussed with: nurses, consultants case discussed and evaluated by supervising physician Subjective ROS Limited/Unobtainable: Yes Interval Events: Allergies: Coded Allergies: MEMANTINE (Unverified Allergy, Unknown, 12/15/19) SERTRALINE (Unverified Allergy, Unknown, 12/15/19) Subjective SARS- CoV -2 by PCR 12/21 and 12/24 not detected creat stable pulse ox stable on RA no fevers , mild leukocytosis resolved Hgb down to 8 this am Objective Last 24 Hour Vital Signs Date Time Temp Pulse Resp B/P (MAP) Pulse Ox O2 Delivery O2 Flow Rate FiO2 12/30/19 04:00 78 12/30/19 04:00 98.3 94 18 129/97 (108) 96 12/30/19 00:00 98.9 78 18 127/68 (87) 95 12/30/19 00:00 78 12/29/19 21:00 Room Air 12/29/19 21:00 131/70 12/29/19 20:00 98.9 89 19 133/82 (99) 97 12/29/19 16:00 84 12/29/19 16:00 98.4 85 18 131/70 (90) 97 12/29/19 14:53 154/62 12/29/19 12:00 97.0 84 18 154/62 (92) 97 12/29/19 12:00 84 12/29/19 09:12 139/77 12/29/19 09:00 Room Air Intake and Output 12/29/19 12/30/19 19:00 07:00 Output Total 600 ml 500 ml Balance -600 ml -500 ml Output Urine Total 600 ml 500 ml Objective General Appearance: WD/WN, no acute distress elderly female HEENT: normocephalic, atraumatic, anicteric, mucous membranes moist, PERRL, NGT Respiratory/Chest: few scattered rhonchi Cardiovascular: normal peripheral pulses, normal rate, regular rhythm, SR on tele Abdomen: normal bowel sounds, soft, non tender, non distended, no mass, no scars Genitourinary: normal external genitalia Extremities: no cyanosis, no clubbing Skin: no rash, no lesions, no ulcers 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: 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 specialist II-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 grossly normal, alert, open eyes spontaneously but not- responsive Lymphatic: no neck adenopathy, no groin adenopathy Musculoskeletal: normal muscle bulk, no effusion HEENT: atraumatic 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: normal mood/affect Laboratory Tests 12/29/19 09:45: White Blood Count 12.4H, Red Blood Count 3.42L, Hemoglobin 10.9L, Hematocrit 31.6L, Mean Corpuscular Volume 92, Mean Corpuscular Hemoglobin 31.7H, Mean Corpuscular Hemoglobin Concent 34.3, Red Cell Distribution Width 12.1, Platelet Count 251, Mean Platelet Volume 6.8, Neutrophils (%) (Auto) 68.2, Lymphocytes (% ) (Auto) 22.6, Monocytes (%) (Auto) 8.2, Eosinophils (%) (Auto) 0.5, Basophils ( %) (Auto) 0.5 12/29/19 14:00: Vancomycin Level Trough 17.1H 12/30/19 07:03: White Blood Count 8.4, Red Blood Count 2.52L, Hemoglobin 8.0L, Hematocrit 23.5L , Mean Corpuscular Volume 93, Mean Corpuscular Hemoglobin 31.5H, Mean Corpuscular Hemoglobin Concent 33.9, Red Cell Distribution Width 12.3, Platelet Count 155, Mean Platelet Volume 7.3, Neutrophils (%) (Auto) 69.1, Lymphocytes (% ) (Auto) 19.8L, Monocytes (%) (Auto) 8.8, Eosinophils (%) (Auto) 0.8, Basophils (%) (Auto) 1.5, Sodium Level [Pending], Potassium Level [Pending], Chloride Level [Pending], Carbon Dioxide Level [Pending], Blood Urea Nitrogen [Pending], Creatinine [Pending], Estimat Glomerular Filtration Rate [Pending], Glucose Level [Pending], Uric Acid [Pending], Calcium Level [Pending], Phosphorus Level [Pending], Magnesium Level [Pending], Total Bilirubin [Pending], Aspartate Amino Transf (AST/SGOT) [Pending], Alanine Aminotransferase (ALT/SGPT) [Pending] , Alkaline Phosphatase [Pending], C-Reactive Protein, Quantitative [Pending], Pro-B-Type Natriuretic Peptide [Pending], Total Protein [Pending], Albumin [ Pending], Globulin [Pending] Current Medications Medications (Trade) Dose Ordered Sig/Ovi Route PRN Reason Start Time Stop Time Status Last Admin Dose Admin Aspirin (ASA) 81 mg DAILY NG 12/19/19 09:00 02/02/20 08:59 12/29/19 09:15 Atorvastatin Calcium (Lipitor) 20 mg BEDTIME ORAL 12/19/19 21:00 03/18/20 20:59 12/29/19 21:00 Captopril (Capoten) 6.25 mg EVERY 12 HOURS ORAL 12/29/19 21:00 01/24/20 20:59 12/29/19 21:00 Heparin Sodium (Porcine) (Heparin 5000 units/ml) 5,000 units EVERY 12 HOURS SUBQ 12/19/19 21:00 02/02/20 20:59 12/29/19 21:00 Lansoprazole (Prevacid) 30 mg BID NG 12/29/19 18:00 01/28/20 17:59 12/29/19 17:31 Nitroglycerin (Ntg) 1 patch Q24H TDERMAL 12/19/19 14:00 01/14/20 13:59 12/29/19 14:53 Valproic Acid (Depakene) 500 mg EVERY 12 HOURS NG 12/18/19 23:15 01/17/20 23:14 12/29/19 21:00 Vancomycin HCl (Vanco rx to dose) 1 ea DAILY PRN MISC Per rx protocol 12/19/19 12:00 01/18/20 11:59 Vancomycin HCl 750 mg/Sodium Chloride 275 ml @ 183.333 mls/hr Q12HR@0300,1500 IVPB 12/28/19 03:00 01/02/20 02:59 12/30/19 03:00 Boby Toledo MD 12/30/19 1452: Assessment/Plan Assessment/Plan Patient seen and examined with CRATE BUILDER, agree with A&P above as it reflects our joint deliberations. Subjective Allergies: Coded Allergies: MEMANTINE (Unverified Allergy, Unknown, 12/15/19) SERTRALINE (Unverified Allergy, Unknown, 12/15/19) Marge Gutierrez CRATE BUILDER Dec 30, 2019 08:23 Boby Toledo MD Dec 30, 2019 14:52
[2019-12-30] MEDS: Aspirin Baby 81mg NG SCH (08:32)
[2019-12-30] MEDS: Captopril 12.5mg tab ORAL SCH ×3 (08:32→21:10)
[2019-12-30 08:33] LABS: ALANINE AMINOTRANSFERASE 58 U/L (12-78); ALBUMIN 1.3 G/DL (3.4-5.0); ALBUMIN/GLOBULIN RATIO 0.3 (1.0-2.7); ALKALINE PHOSPHATASE 147 U/L (46-116); ANION GAP 7 mmol/L (5-15); ASPARTATE AMINO TRANSFERASE 62 U/L (15-37); BILIRUBIN,TOTAL 0.1 MG/DL (0.2-1.0); BLOOD UREA NITROGEN 21 mg/dL (7-18); CALCIUM 8.8 MG/DL (8.5-10.1); CARBON DIOXIDE 27 MMOL/L (21-32); CHLORIDE 107 MMOL/L (98-107); CREATININE 0.6 MG/DL (0.55-1.30); PHOSPHORUS 3.6 MG/DL (2.5-4.9); SODIUM 141 MMOL/L (136-145)
[2019-12-30] MEDS: Valproic Acid 250mg/5ml Liquid NG SCH ×2 (08:33→21:11)
[2019-12-30] MEDS: Heparin 5000 units/ml inj SUBQ SCH ×2 (08:34→21:00)
[2019-12-30 09:15] LABS: FERRITIN 469 NG/ML (8-388)
[2019-12-30 09:48] LABS: % IRON SATURATION 30 % (15-50); TOTAL IRON BINDING CAPACITY 148 ug/dL (250-450)
[2019-12-30 10:11] LABS: IRON 45 ug/dL (50-175)
--- NOTE | 2019-12-30 11:47 | Nephrology Progress Note ---
Assessment/Plan Problem List: (1) ROSARIO (acute kidney injury) (2) Dehydration (3) Electrolyte imbalance (4) NSTEMI (non-ST elevated myocardial infarction) (5) COVID-19 virus infection (6) Anemia Assessment Acute renal failure Severe dehydration Hypernatremia indicative of free water depletion Hypercalcemia likely due to dehydration Elevated hemoglobin likely secondary to hemoconcentration Elevated troponin Poor p.o. intake / failure to thrive Dementia Hypertension Exposure to COVID-19 Plan Covid19 test positive Discontinue potassium chloride p.o. IV Protonix to Prevacid via NG tube At the folic acid to medication Watch declining hemoglobin Aspirin 2D echocardiogram, results still pending Nitropaste Avoid nephrotoxic's Monitor renal parameters Monitor hemoglobin hematocrit Avoid mind altering medication in view of severe lethargy Per orders Subjective ROS Limited/Unobtainable: No Constitutional: Reports: malaise Objective Objective Last 24 Hour Vital Signs Date Time Temp Pulse Resp B/P (MAP) Pulse Ox O2 Delivery O2 Flow Rate FiO2 12/30/19 08:32 143/65 12/30/19 08:00 98.1 83 20 143/65 (91) 99 12/30/19 04:00 78 12/30/19 04:00 98.3 94 18 129/97 (108) 96 12/30/19 00:00 98.9 78 18 127/68 (87) 95 12/30/19 00:00 78 12/29/19 21:00 Room Air 12/29/19 21:00 131/70 12/29/19 20:00 98.9 89 19 133/82 (99) 97 12/29/19 16:00 84 12/29/19 16:00 98.4 85 18 131/70 (90) 97 12/29/19 14:53 154/62 12/29/19 12:00 97.0 84 18 154/62 (92) 97 12/29/19 12:00 84 Intake and Output 12/29/19 12/30/19 19:00 07:00 Output Total 600 ml 500 ml Balance -600 ml -500 ml Output Urine Total 600 ml 500 ml Current Medications Medications (Trade) Dose Ordered Sig/Ovi Route PRN Reason Start Time Stop Time Status Last Admin Dose Admin Aspirin (ASA) 81 mg DAILY NG 12/19/19 09:00 02/02/20 08:59 12/30/19 08:32 Atorvastatin Calcium (Lipitor) 20 mg BEDTIME ORAL 12/19/19 21:00 03/18/20 20:59 12/29/19 21:00 Captopril (Capoten) 6.25 mg EVERY 12 HOURS ORAL 12/29/19 21:00 01/24/20 20:59 12/30/19 08:32 Heparin Sodium (Porcine) (Heparin 5000 units/ml) 5,000 units EVERY 12 HOURS SUBQ 12/19/19 21:00 02/02/20 20:59 12/30/19 08:34 Lansoprazole (Prevacid) 30 mg BID NG 12/29/19 18:00 01/28/20 17:59 12/30/19 08:33 Nitroglycerin (Ntg) 1 patch Q24H TDERMAL 12/19/19 14:00 01/14/20 13:59 12/29/19 14:53 Valproic Acid (Depakene) 500 mg EVERY 12 HOURS NG 12/18/19 23:15 01/17/20 23:14 12/30/19 08:33 Vancomycin HCl (Vanco rx to dose) 1 ea DAILY PRN MISC Per rx protocol 12/19/19 12:00 01/18/20 11:59 Vancomycin HCl 750 mg/Sodium Chloride 275 ml @ 183.333 mls/hr Q12HR@0300,1500 IVPB 12/28/19 03:00 01/02/20 02:59 12/30/19 03:00 Laboratory Tests 12/29/19 14:00: Vancomycin Level Trough 17.1H 12/30/19 07:03: White Blood Count 8.4, Red Blood Count 2.52L, Hemoglobin 8.0L, Hematocrit 23.5L , Mean Corpuscular Volume 93, Mean Corpuscular Hemoglobin 31.5H, Mean Corpuscular Hemoglobin Concent 33.9, Red Cell Distribution Width 12.3, Platelet Count 155, Mean Platelet Volume 7.3, Neutrophils (%) (Auto) 69.1, Lymphocytes (% ) (Auto) 19.8L, Monocytes (%) (Auto) 8.8, Eosinophils (%) (Auto) 0.8, Basophils (%) (Auto) 1.5, Sodium Level 141, Potassium Level 4.0, Chloride Level 107, Carbon Dioxide Level 27, Anion Gap 7, Blood Urea Nitrogen 21H, Creatinine 0.6, Estimat Glomerular Filtration Rate > 60, Glucose Level 133H, Uric Acid 2.9, Calcium Level 8.8, Phosphorus Level 3.6, Magnesium Level 1.9, Iron Level 45L, Total Iron Binding Capacity 148L, Percent Iron Saturation 30, Unsaturated Iron Binding 103L, Ferritin 469H, Total Bilirubin 0.1L, Aspartate Amino Transf (AST/ SGOT) 62H, Alanine Aminotransferase (ALT/SGPT) 58, Alkaline Phosphatase 147H, C- Reactive Protein, Quantitative 11.6H, Pro-B-Type Natriuretic Peptide 806H, Total Protein 6.2L, Albumin 1.3L, Globulin 4.9, Albumin/Globulin Ratio 0.3L, Vitamin B12 Level 1648H, Folate 5.0L Height (Feet): 5 Height (Inches): 0.00 Weight (Pounds): 148 General Appearance: no apparent distress, lethargic Cardiovascular: tachycardia Respiratory/Chest: decreased breath sounds Abdomen: soft Objective No change Robert Foreman MD Dec 30, 2019 11:47
[2019-12-30 12:00] VITALS: BP 126/77
[2019-12-30] MEDS: Nitroglycerin Patch 0.4mg TDERMAL SCH (13:02)
--- NOTE | 2019-12-30 14:59 | Infectious Diseases Prog Note ---
Assessment/Plan Problems: (1) Sepsis Assessment & Plan: with Staphylococcus epidermidis grew out of four bottles from both sets, source ? continue vancomycin for two weeks total , repeated blood culture grew the same organism but from one bottle only most likely contaminants. EOT 01/02/20 (2) COVID-19 virus infection Assessment & Plan: keep in enhanced droplet isolation, S/P hydroxychloroquin with zinc and vitamin C for five days total.repeated PCR test times two so far is negative. (3) Viral pneumonia Assessment & Plan: due to COVID 19, S/P hydroxychloroquine , with zinc and vitamin C for five days, Repeated PCR test is negative (4) ROSARIO (acute kidney injury) Assessment & Plan: suspect due to dehydration and poor oral intake improving monitor renal function avoid nephrotoxic's (5) NSTEMI (non-ST elevated myocardial infarction) Assessment & Plan: could be due to COVID 19, cardiology is following monitor troponin level Subjective ROS Limited/Unobtainable: Yes Allergies: Coded Allergies: MEMANTINE (Unverified Allergy, Unknown, 12/15/19) SERTRALINE (Unverified Allergy, Unknown, 12/15/19) Subjective she was laying in bed, responsive only to touch, as in follow commands, no fever today, no SOB, confused , receiving meds though NGT , no agitation , sating well on room air Objective Vital Signs Last 24 Hour Vital Signs Date Time Temp Pulse Resp B/P (MAP) Pulse Ox O2 Delivery O2 Flow Rate FiO2 12/30/19 14:43 126/77 12/30/19 13:02 126/77 12/30/19 12:00 80 12/30/19 12:00 97.1 81 20 126/77 (93) 98 12/30/19 09:00 Room Air 12/30/19 09:00 Room Air 12/30/19 08:32 143/65 12/30/19 08:00 98.1 83 20 143/65 (91) 99 12/30/19 08:00 79 12/30/19 04:00 78 12/30/19 04:00 98.3 94 18 129/97 (108) 96 12/30/19 00:00 98.9 78 18 127/68 (87) 95 12/30/19 00:00 78 12/29/19 21:00 Room Air 12/29/19 21:00 131/70 4/29/20 20:00 98.9 89 19 133/82 (99) 97 12/29/19 16:00 84 12/29/19 16:00 98.4 85 18 131/70 (90) 97 Height (Feet): 5 Height (Inches): 0.00 Weight (Pounds): 148 General Appearance: WD/WN, no acute distress, cachetic HEENT: normocephalic, atraumatic, anicteric, mucous membranes moist, PERRL, supple, no JVD Respiratory/Chest: chest wall non-tender, no respiratory distress, no accessory muscle use, decreased breath sounds, crackles/rales Cardiovascular: normal peripheral pulses, normal rate, regular rhythm, no gallop/murmur, no JVD Abdomen: normal bowel sounds, soft, non tender, no organomegaly, non distended , no mass, no scars Genitourinary: normal external genitalia Extremities: no cyanosis, no clubbing Skin: no rash, no lesions 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: unresponsiveness Lymphatic: no neck adenopathy, no groin adenopathy Musculoskeletal: normal muscle bulk, no effusion Laboratory Tests Test 12/30/19 07:03 White Blood Count 8.4 K/UL (4.8-10.8) Red Blood Count 2.52 M/UL (4.20-5.40) L Hemoglobin 8.0 G/DL (12.0-16.0) L Hematocrit 23.5 % (37.0-47.0) L Mean Corpuscular Volume 93 FL (80-99) Mean Corpuscular Hemoglobin 31.5 PG (27.0-31.0) H Mean Corpuscular Hemoglobin Concent 33.9 G/DL (32.0-36.0) Red Cell Distribution Width 12.3 % (11.6-14.8) Platelet Count 155 K/UL (150-450) Mean Platelet Volume 7.3 FL (6.5-10.1) Neutrophils (%) (Auto) 69.1 % (45.0-75.0) Lymphocytes (%) (Auto) 19.8 % (20.0-45.0) L Monocytes (%) (Auto) 8.8 % (1.0-10.0) Eosinophils (%) (Auto) 0.8 % (0.0-3.0) Basophils (%) (Auto) 1.5 % (0.0-2.0) Sodium Level 141 MMOL/L (136-145) Potassium Level 4.0 MMOL/L (3.5-5.1) Chloride Level 107 MMOL/L (98-107) Carbon Dioxide Level 27 MMOL/L (21-32) Anion Gap 7 mmol/L (5-15) Blood Urea Nitrogen 21 mg/dL (7-18) H Creatinine 0.6 MG/DL (0.55-1.30) Estimat Glomerular Filtration Rate > 60 mL/min (>60) Glucose Level 133 MG/DL (74-106) H Uric Acid 2.9 MG/DL (2.6-7.2) Calcium Level 8.8 MG/DL (8.5-10.1) Phosphorus Level 3.6 MG/DL (2.5-4.9) Magnesium Level 1.9 MG/DL (1.8-2.4) Iron Level 45 ug/dL (50-175) L Total Iron Binding Capacity 148 ug/dL (250-450) L Percent Iron Saturation 30 % (15-50) Unsaturated Iron Binding 103 ug/dL (112-346) L Ferritin 469 NG/ML (8-388) H Total Bilirubin 0.1 MG/DL (0.2-1.0) L Aspartate Amino Transf (AST/SGOT) 62 U/L (15-37) H Alanine Aminotransferase (ALT/SGPT) 58 U/L (12-78) Alkaline Phosphatase 147 U/L (46-116) H C-Reactive Protein, Quantitative 11.6 mg/dL (0.00-0.90) H Pro-B-Type Natriuretic Peptide 806 pg/mL (0-125) H Total Protein 6.2 G/DL (6.4-8.2) L Albumin 1.3 G/DL (3.4-5.0) L Globulin 4.9 g/dL Albumin/Globulin Ratio 0.3 (1.0-2.7) L Vitamin B12 Level 1648 PG/ML (193-986) H Folate 5.0 NG/ML (8.6-58.9) L Current Medications Medications (Trade) Dose Ordered Sig/Ovi Route PRN Reason Start Time Stop Time Status Last Admin Dose Admin Aspirin (ASA) 81 mg DAILY NG 4/19/20 09:00 02/02/20 08:59 12/30/19 08:32 Atorvastatin Calcium (Lipitor) 20 mg BEDTIME ORAL 12/19/19 21:00 03/18/20 20:59 12/29/19 21:00 Captopril (Capoten) 6.25 mg EVERY 8 HOURS ORAL 12/30/19 14:00 01/24/20 20:59 12/30/19 14:43 Folic Acid (Folate) 2 mg DAILY NG 12/30/19 12:00 01/29/20 11:59 12/30/19 12:54 Heparin Sodium (Porcine) (Heparin 5000 units/ml) 5,000 units EVERY 12 HOURS SUBQ 12/19/19 21:00 02/02/20 20:59 12/30/19 08:34 Lansoprazole (Prevacid) 30 mg BID NG 12/29/19 18:00 01/28/20 17:59 12/30/19 08:33 Nitroglycerin (Ntg) 1 patch Q24H TDERMAL 12/19/19 14:00 01/14/20 13:59 12/30/19 13:02 Valproic Acid (Depakene) 500 mg EVERY 12 HOURS NG 12/18/19 23:15 01/17/20 23:14 12/30/19 08:33 Vancomycin HCl (Vanco rx to dose) 1 ea DAILY PRN MISC Per rx protocol 12/19/19 12:00 01/18/20 11:59 Vancomycin HCl 750 mg/Sodium Chloride 275 ml @ 183.333 mls/hr Q12HR@0300,1500 IVPB 12/28/19 03:00 01/02/20 02:59 12/30/19 14:43 Sukhjinder Howell M.D. Dec 30, 2019 14:59
--- NOTE | 2019-12-30 15:54 | Cardiology Progress Note ---
Assessment/Plan Assessment/Plan 1. [id number] myocardial infarction,related to demand vs from covid induced myonecrosis , doubt plaque rupture or cytokine storm 2. Acute renal failure in the setting of volume depletion. 3. Hypernatremia secondary to volume depletion. 4. 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 5. Dementia. 6. Lactic acidosis. 7. History of bradycardia secondary to medications. 8. bacteremia no fever covid status now neg on 2 check on sq heparin for dvt ppx echo prelim noted no sig abn on tele now sinus no afib or pauses on ecotrin and statin on feeding tolerating per staff on iv vanco planned for 2 weeks hemodynamically stable for the moment await family decision regarding hospice vs g tube hgb lower need to repeat for accuracy Subjective ROS Limited/Unobtainable: Yes Subjective per rn Patient is awake lying semi-ramsey's; resting comfortably. No signs of acute distress or pain noted at this time. AOx0; unable to make needs known. Checked IV site; patent and flushed. No erythema, bleeding, or infiltration noted. NG tube on right nare in place. Jevity 1.2 running at 50 mls/hr. Harris catheter draining well to gravity. Objective Last 24 Hour Vital Signs Date Time Temp Pulse Resp B/P (MAP) Pulse Ox O2 Delivery O2 Flow Rate FiO2 12/30/19 14:43 126/77 12/30/19 13:02 126/77 12/30/19 12:00 80 12/30/19 12:00 97.1 81 20 126/77 (93) 98 12/30/19 09:00 Room Air 12/30/19 09:00 Room Air 12/30/19 08:32 143/65 12/30/19 08:00 98.1 83 20 143/65 (91) 99 12/30/19 08:00 79 12/30/19 04:00 78 12/30/19 04:00 98.3 94 18 129/97 (108) 96 12/30/19 00:00 98.9 78 18 127/68 (87) 95 12/30/19 00:00 78 12/29/19 21:00 Room Air 12/29/19 21:00 131/70 12/29/19 20:00 98.9 89 19 133/82 (99) 97 12/29/19 16:00 84 4/29/20 16:00 98.4 85 18 131/70 (90) 97 General Appearance: other - deferred due to covid Intake and Output 12/29/19 12/30/19 19:00 07:00 Output Total 600 ml 500 ml Balance -600 ml -500 ml Output Urine Total 600 ml 500 ml Laboratory Tests Test 12/30/19 07:03 White Blood Count 8.4 K/UL (4.8-10.8) Red Blood Count 2.52 M/UL (4.20-5.40) L Hemoglobin 8.0 G/DL (12.0-16.0) L Hematocrit 23.5 % (37.0-47.0) L Mean Corpuscular Volume 93 FL (80-99) Mean Corpuscular Hemoglobin 31.5 PG (27.0-31.0) H Mean Corpuscular Hemoglobin Concent 33.9 G/DL (32.0-36.0) Red Cell Distribution Width 12.3 % (11.6-14.8) Platelet Count 155 K/UL (150-450) Mean Platelet Volume 7.3 FL (6.5-10.1) Neutrophils (%) (Auto) 69.1 % (45.0-75.0) Lymphocytes (%) (Auto) 19.8 % (20.0-45.0) L Monocytes (%) (Auto) 8.8 % (1.0-10.0) Eosinophils (%) (Auto) 0.8 % (0.0-3.0) Basophils (%) (Auto) 1.5 % (0.0-2.0) Sodium Level 141 MMOL/L (136-145) Potassium Level 4.0 MMOL/L (3.5-5.1) Chloride Level 107 MMOL/L (98-107) Carbon Dioxide Level 27 MMOL/L (21-32) Anion Gap 7 mmol/L (5-15) Blood Urea Nitrogen 21 mg/dL (7-18) H Creatinine 0.6 MG/DL (0.55-1.30) Estimat Glomerular Filtration Rate > 60 mL/min (>60) Glucose Level 133 MG/DL (74-106) H Uric Acid 2.9 MG/DL (2.6-7.2) Calcium Level 8.8 MG/DL (8.5-10.1) Phosphorus Level 3.6 MG/DL (2.5-4.9) Magnesium Level 1.9 MG/DL (1.8-2.4) Iron Level 45 ug/dL (50-175) L Total Iron Binding Capacity 148 ug/dL (250-450) L Percent Iron Saturation 30 % (15-50) Unsaturated Iron Binding 103 ug/dL (112-346) L Ferritin 469 NG/ML (8-388) H Total Bilirubin 0.1 MG/DL (0.2-1.0) L Aspartate Amino Transf (AST/SGOT) 62 U/L (15-37) H Alanine Aminotransferase (ALT/SGPT) 58 U/L (12-78) Alkaline Phosphatase 147 U/L (46-116) H C-Reactive Protein, Quantitative 11.6 mg/dL (0.00-0.90) H Pro-B-Type Natriuretic Peptide 806 pg/mL (0-125) H Total Protein 6.2 G/DL (6.4-8.2) L Albumin 1.3 G/DL (3.4-5.0) L Globulin 4.9 g/dL Albumin/Globulin Ratio 0.3 (1.0-2.7) L Vitamin B12 Level 1648 PG/ML (193-986) H Folate 5.0 NG/ML (8.6-58.9) L Kendell Rosen MD Dec 30, 2019 15:54
[2019-12-30 16:00] VITALS: BP 136/82
--- NOTE | 2019-12-30 19:26 | CDS Physician Query ---
Clarification is required for compliance, coding accuracy, and to reflect severity of illness for this patient Dear Date: Data Modeling Architect/CDS Name: Exercise your independent professional judgment when responding to query. Question asked do not imply a particular answer is desired/expected Clinical Documentation States: "Sepsis" documented in infection consult 12/18 Clinical Findings Show: General variables [x] Fever (temp >38.3 degrees C or 100.4 degrees F) [] Hypothermia (temp<36 degrees C or 96.0 degrees F) [] Heart rate > 90/min [x] Tachypnea/RR > 20 bpm [] pCO2 < 32 mmHg [] Altered mental status [] Significant edema or positive fluid balance (>20 ml/kg over 24h) [] Hyperglycemia ( Plasma >140 mg/dL or 7.7 mmol/L) in the abscence of diabetes Inflammatory variables [x] Leukocytosis (WBC count > 12,000 L1 [] Leukopenia (WBC count < 4000 L1) [] Normal WBC count with greater than 10% immature forms (Bandemia) Hemodynamic variables [] Arterial hypotension (SBP < 90 mm Hg, MAP < 70 mm Hg, or an SBP decrease > 40 mm Hg in adults or less than two sd below normal for age) Organ dysfunction variables [x] Arterial hypoxemia (Pao2/Fio2 < 300) [] Acute oliguria (urine output < 0.5 mL/kg/hr for at least 2 hrs despite adequate fluid resuscitation) [] Creatinine increase > 0.5 mg/dL or 44.2 mol/L [] Coagulation abnormalities (INR > 1.5 or aPTT > 60 s) [] Ileus (absent bowel sounds) [] Thrombocytopenia (platelet count < 100,000 L1) [] Hyperbilirubinemia (plasma total bilirubin > 4 mg/dL or 70 mol/L) Tissue Perfusion Variables [] Hyperlactatemia (> 1 mmol/L) [] Decreased capillary refill or mottling Was SEPSIS present on admission? [] Yes [] No [] Clinically undeterminable Physician signature Date Please also document in your Progress Notes and/or Discharge Summary and indicate if the condition was present on admission. THERESA
[2019-12-30 20:00] VITALS: BP 136/82
[2019-12-30] MEDS: Atorvastatin 20mg tab ORAL SCH (21:10)
[2019-12-31] VITALS: BP 125/65
[2019-12-31] MEDS: Vancomycin 750 MG in NS 275 ML IVPB SCH ×2 (03:09→14:09)
[2019-12-31 04:00] VITALS: BP 124/74
[2019-12-31] MEDS: Captopril 12.5mg tab ORAL SCH ×3 (06:27→21:37)
[2019-12-31 07:23] LABS: BASOPHILS % (AUTO) 1.2 % (0.0-2.0); EOSINOPHILS % (AUTO) 0.3 % (0.0-3.0); HEMATOCRIT 30.7 % (37.0-47.0); HEMOGLOBIN 10.4 G/DL (12.0-16.0); MEAN CORPUSCULAR VOLUME 93 FL (80-99); NEUTROPHILS % (AUTO) 69.5 % (45.0-75.0); PLATELET COUNT 245 K/UL (150-450); RED BLOOD COUNT 3.31 M/UL (4.20-5.40); RED CELL DISTRIBUTION WIDTH 12.3 % (11.6-14.8); WHITE BLOOD COUNT 11.6 K/UL (4.8-10.8)
[2019-12-31 08:00] VITALS: BP 127/66
[2019-12-31] MEDS: Valproic Acid 250mg/5ml Liquid NG SCH ×2 (08:19→21:37)
[2019-12-31] MEDS: Aspirin Baby 81mg NG SCH (08:20)
[2019-12-31] MEDS: Heparin 5000 units/ml inj SUBQ SCH ×2 (08:22→21:39)
[2019-12-31 08:39] LABS: ALANINE AMINOTRANSFERASE 71 U/L (12-78); ALBUMIN 1.3 G/DL (3.4-5.0); ALBUMIN/GLOBULIN RATIO 0.3 (1.0-2.7); ALKALINE PHOSPHATASE 157 U/L (46-116); ANION GAP 5 mmol/L (5-15); ASPARTATE AMINO TRANSFERASE 59 U/L (15-37); BILIRUBIN,TOTAL 0.2 MG/DL (0.2-1.0); BLOOD UREA NITROGEN 18 mg/dL (7-18); CALCIUM 7.9 MG/DL (8.5-10.1); CARBON DIOXIDE 27 MMOL/L (21-32); CHLORIDE 109 MMOL/L (98-107); CREATININE 0.7 MG/DL (0.55-1.30); PHOSPHORUS 3.2 MG/DL (2.5-4.9); SODIUM 141 MMOL/L (136-145)
--- NOTE | 2019-12-31 08:53 | Pulmonology Progress Note ---
MattMarge MAILROOM COURIER 12/31/19 0853: Assessment/Plan Assessment/Plan PROBLEMS Confirmed COVID-19 virus infection Viral pneumonia Electrolyte imbalance NSTEMI (non-ST elevated myocardial infarction) Encephalopathy (Dehydration ROSARIO (acute kidney injury) Staphylococcus epidermidis bacteremia Anemia Assessment/Plan Confirmed CoVID 19 infection Acute hypoxemic respiratory failure-resolved S epidermis bacteremia Acute renal failure - RESOLVED Severe dehydration - IMPROVED Hypernatremia indicative of free water depletion Hypercalcemia likely due to dehydration Elevated hemoglobin likely secondary to hemoconcentration, now anemia Elevated troponin/NSTEMI Poor p.o. intake / failure to thrive Dementia Hypertension Generalized anxiety disorder Dysphagia Anemia of chronic disease Folate deficiency Plan: * COVID-19 isolation status, confirmed 12/14, * repeat COVID 12/21- and 12/24 NGT -> off isolation * on tele now * monitor oxygenation closely, on RA or only on 1-2L nasal cannula * CXR prn only if worsening symptoms, CXR 12/16 clear lungs * fup CXR 12/25 done , given mild leukocytosis -no acute findings * CRP 11.6 ( down from the highest 23.5) * mild leukocytosis * Vanco per ID, need 2 wks for Staph epidermidis ( repeated BCX 12/20 still + with Staph epidermidis 09/02) * Completed 5 days of Plaquenil * s/p IVF , nephro on board * Monitor electrolytes and renal parameters * TTE per cardio * on a/PLT therapy with ASA, statin , [facility] for afterload reduction * NPO, NGTF's, 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 , , strict aspiration precautions, unable to participate in swallow eval * will need either G tube or palliative care * Cont Depakote 500 mg bid from SNF * DVT ppx: heparin SQ * Anemia w/up c/w ACD and folate deficiency, started on folate replacement * Hg up to 10 this am * stool OB pending Hgb * monitor hH with goal to keep Hgb above 7 * Full Code per prior documented ECP notes * Dr Toledo spoke with deidra Milton 12/27 ([phone]) and discussed further goals of care, she will need to discuss with other family members and will get back to us: either PEG placement or palliative care * awaiting for family decision, daughter decided to continue Full code and wasnt G tube * GI consulted Prophylaxis: Heparin SQ Disposition: downgraded to tele Time Spent (Minutes): 35 Notes Reviewed: cardio, renal, ID Discussed with: nurses, consultants case discussed and evaluated by supervising physician Subjective ROS Limited/Unobtainable: Yes Interval Events: Allergies: Coded Allergies: MEMANTINE (Unverified Allergy, Unknown, 12/15/19) SERTRALINE (Unverified Allergy, Unknown, 12/15/19) Subjective SARS- CoV -2 by PCR 12/21 and 12/24 not detected creat stable pulse ox stable on RA no fevers , mild leukocytosis remains poorly responsive Objective Last 24 Hour Vital Signs Date Time Temp Pulse Resp B/P (MAP) Pulse Ox O2 Delivery O2 Flow Rate FiO2 12/31/19 06:27 124/74 12/31/19 04:00 85 12/31/19 04:00 97.9 82 18 124/74 (91) 97 12/31/19 00:00 98.6 83 18 125/65 (85) 95 12/31/19 00:00 82 12/30/19 21:10 136/82 12/30/19 21:00 Room Air 12/30/19 20:00 97.3 80 18 136/82 (100) 96 12/30/19 20:00 81 12/30/19 16:00 97.1 98 20 136/82 (100) 96 12/30/19 16:00 77 12/30/19 14:43 126/77 12/30/19 13:02 126/77 12/30/19 12:00 80 12/30/19 12:00 97.1 81 20 126/77 (93) 98 12/30/19 09:00 Room Air 12/30/19 09:00 Room Air Intake and Output 12/30/19 12/31/19 19:00 07:00 Intake Total 50 ml 975 ml Output Total 700 ml Balance -650 ml 975 ml Intake Free Water 100 ml IV Total 275 ml Tube Feeding 50 ml 600 ml Output Urine Total 700 ml # Voids 1 # Bowel Movements 1 Objective General Appearance: WD/WN, no acute distress elderly AA female HEENT: normocephalic, atraumatic, anicteric, mucous membranes moist, PERRL, NGT Respiratory/Chest: few scattered rhonchi Cardiovascular: normal peripheral pulses, normal rate, regular rhythm, SR on tele Abdomen: normal bowel sounds, soft, non tender, non distended, no mass, no scars Genitourinary: normal external genitalia Extremities: no cyanosis, no clubbing Skin: no rash, no lesions, no ulcers 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, open eyes spontaneously but very poorly responsive Lymphatic: no neck adenopathy, no groin adenopathy Musculoskeletal: normal muscle bulk, no effusion 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: unresponsiveness Musculoskeletal: normal muscle bulk Laboratory Tests 12/30/19 19:00: Stool Occult Blood [Pending] 12/31/19 06:57: White Blood Count 11.6H, Red Blood Count 3.31L, Hemoglobin 10.4L, Hematocrit 30.7#L, Mean Corpuscular Volume 93, Mean Corpuscular Hemoglobin 31.3H, Mean Corpuscular Hemoglobin Concent 33.7, Red Cell Distribution Width 12.3, Platelet Count 245#, Mean Platelet Volume 6.7, Neutrophils (%) (Auto) 69.5, Lymphocytes ( %) (Auto) 25.0, Monocytes (%) (Auto) 4.0, Eosinophils (%) (Auto) 0.3, Basophils (%) (Auto) 1.2, Sodium Level 141, Potassium Level 4.0, Chloride Level 109H, Carbon Dioxide Level 27, Anion Gap 5, Blood Urea Nitrogen 18, Creatinine 0.7, Estimat Glomerular Filtration Rate > 60, Glucose Level 153H, Calcium Level 7.9L , Phosphorus Level 3.2, Magnesium Level 2.0, Total Bilirubin 0.2, Aspartate Amino Transf (AST/SGOT) 59H, Alanine Aminotransferase (ALT/SGPT) 71, Alkaline Phosphatase 157H, C-Reactive Protein, Quantitative 11.6H, Pro-B-Type Natriuretic Peptide 857H, Total Protein 6.2L, Albumin 1.3L, Globulin 4.9, Albumin/Globulin Ratio 0.3L Current Medications Medications (Trade) Dose Ordered Sig/Ovi Route PRN Reason Start Time Stop Time Status Last Admin Dose Admin Aspirin (ASA) 81 mg DAILY NG 12/19/19 09:00 02/02/20 08:59 12/31/19 08:20 Atorvastatin Calcium (Lipitor) 20 mg BEDTIME ORAL 12/19/19 21:00 03/18/20 20:59 12/30/19 21:10 Captopril (Capoten) 6.25 mg EVERY 8 HOURS ORAL 12/30/19 14:00 01/24/20 20:59 12/31/19 06:27 Folic Acid (Folate) 2 mg DAILY NG 12/30/19 12:00 01/29/20 11:59 12/31/19 08:20 Heparin Sodium (Porcine) (Heparin 5000 units/ml) 5,000 units EVERY 12 HOURS SUBQ 12/19/19 21:00 02/02/20 20:59 12/31/19 08:22 Lansoprazole (Prevacid) 30 mg BID NG 12/29/19 18:00 01/28/20 17:59 12/31/19 08:19 Nitroglycerin (Ntg) 1 patch Q24H TDERMAL 12/19/19 14:00 01/14/20 13:59 12/30/19 13:02 Valproic Acid (Depakene) 500 mg EVERY 12 HOURS NG 12/18/19 23:15 01/17/20 23:14 12/31/19 08:19 Vancomycin HCl (Vanco rx to dose) 1 ea DAILY PRN MISC Per rx protocol 12/19/19 12:00 01/18/20 11:59 Vancomycin HCl 750 mg/Sodium Chloride 275 ml @ 183.333 mls/hr Q12HR@0300,1500 IVPB 12/28/19 03:00 01/02/20 02:59 12/31/19 03:09 Boby Toledo MD 01/01/20 1149: Assessment/Plan Assessment/Plan Patient seen and examined with MAILROOM COURIER, agree with A&P above as it reflects our joint deliberations. D/W daughter Dayna Milton at length again today. Family has decided to pursue full treatment measures, including FC and gastrostomy tube. GI consulted. Subjective Allergies: Coded Allergies: MEMANTINE (Unverified Allergy, Unknown, 12/15/19) SERTRALINE (Unverified Allergy, Unknown, 12/15/19) Marge Gutierrez NP December 31, 2019 08:53 Boby Toledo MD January 01, 2020 11:49
[2019-12-31 12:00] VITALS: BP 129/69
[2019-12-31] MEDS: Nitroglycerin Patch 0.4mg TDERMAL SCH (13:26)
--- NOTE | 2019-12-31 13:42 | Nephrology Progress Note ---
Assessment/Plan Problem List: (1) ROSARIO (acute kidney injury) (2) Dehydration (3) Electrolyte imbalance (4) NSTEMI (non-ST elevated myocardial infarction) (5) COVID-19 virus infection (6) Anemia Assessment Acute renal failure Severe dehydration Hypernatremia indicative of free water depletion Hypercalcemia likely due to dehydration Elevated hemoglobin likely secondary to hemoconcentration Elevated troponin Poor p.o. intake / failure to thrive Dementia Hypertension Exposure to COVID-19 Plan Covid19 test positive Discontinue potassium chloride p.o. IV Protonix to Prevacid via NG tube At the folic acid to medication Watch declining hemoglobin Aspirin 2D echocardiogram, results still pending Nitropaste Avoid nephrotoxic's Monitor renal parameters Monitor hemoglobin hematocrit Avoid mind altering medication in view of severe lethargy Per orders Subjective ROS Limited/Unobtainable: No Constitutional: Reports: malaise Objective Objective Last 24 Hour Vital Signs Date Time Temp Pulse Resp B/P (MAP) Pulse Ox O2 Delivery O2 Flow Rate FiO2 12/31/19 13:26 129/69 12/31/19 13:25 129/69 12/31/19 08:00 80 12/31/19 08:00 98.4 83 18 127/66 (86) 96 12/31/19 06:27 124/74 12/31/19 04:00 85 12/31/19 04:00 97.9 82 18 124/74 (91) 97 12/31/19 00:00 98.6 83 18 125/65 (85) 95 12/31/19 00:00 82 12/30/19 21:10 136/82 12/30/19 21:00 Room Air 12/30/19 20:00 97.3 80 18 136/82 (100) 96 12/30/19 20:00 81 12/30/19 16:00 97.1 98 20 136/82 (100) 96 12/30/19 16:00 77 12/30/19 14:43 126/77 Intake and Output 12/30/19 12/31/19 19:00 07:00 Intake Total 50 ml 975 ml Output Total 700 ml Balance -650 ml 975 ml Intake Free Water 100 ml IV Total 275 ml Tube Feeding 50 ml 600 ml Output Urine Total 700 ml # Voids 1 # Bowel Movements 1 Laboratory Tests 12/30/19 19:00: Stool Occult Blood Negative 12/31/19 06:57: White Blood Count 11.6H, Red Blood Count 3.31L, Hemoglobin 10.4L, Hematocrit 30.7#L, Mean Corpuscular Volume 93, Mean Corpuscular Hemoglobin 31.3H, Mean Corpuscular Hemoglobin Concent 33.7, Red Cell Distribution Width 12.3, Platelet Count 245#, Mean Platelet Volume 6.7, Neutrophils (%) (Auto) 69.5, Lymphocytes ( %) (Auto) 25.0, Monocytes (%) (Auto) 4.0, Eosinophils (%) (Auto) 0.3, Basophils (%) (Auto) 1.2, Sodium Level 141, Potassium Level 4.0, Chloride Level 109H, Carbon Dioxide Level 27, Anion Gap 5, Blood Urea Nitrogen 18, Creatinine 0.7, Estimat Glomerular Filtration Rate > 60, Glucose Level 153H, Calcium Level 7.9L , Phosphorus Level 3.2, Magnesium Level 2.0, Total Bilirubin 0.2, Aspartate Amino Transf (AST/SGOT) 59H, Alanine Aminotransferase (ALT/SGPT) 71, Alkaline Phosphatase 157H, C-Reactive Protein, Quantitative 11.6H, Pro-B-Type Natriuretic Peptide 857H, Total Protein 6.2L, Albumin 1.3L, Globulin 4.9, Albumin/Globulin Ratio 0.3L Height (Feet): 5 Height (Inches): 0.00 Weight (Pounds): 147 General Appearance: no apparent distress EENT: other - NGT Cardiovascular: normal rate Respiratory/Chest: decreased breath sounds Abdomen: soft, distended Objective No change Robert Foreman MD December 31, 2019 13:42
[2019-12-31 16:00] VITALS: BP 134/58
--- NOTE | 2019-12-31 17:45 | Consultation ---
DATE OF CONSULTATION: 12/31/2019 CHIEF COMPLAINT: Dysphagia. HISTORY OF PRESENT ILLNESS: Most of history per chart. The patient is an 89-year-old female admitted to the hospital mainly for COVID positive pneumonia, which is now resolving and negative. The patient was septic, numerous other medical problems which I will dictate in a second. GI consult requested for evaluation for possible G-tube placement. The patient currently has dysphagia, NG tube in place, needing feeding through NG-tube. PAST MEDICAL HISTORY: See above. ALLERGIES: Sertraline and memantine. MEDICATIONS: Please see medication reconciliation list. SOCIAL HISTORY: There is no recent history of tobacco, alcohol, or drug abuse. FAMILY HISTORY: Noncontributory. REVIEW OF SYSTEMS: Unable to obtain. PHYSICAL EXAMINATION: VITAL SIGNS: Temperature 98.4, pulse 80, respirations 18, blood pressure 127/66. HEENT: Normocephalic and atraumatic. Mild pale conjunctivae. NECK: Supple. No evidence of obvious lymphadenopathy. CARDIOVASCULAR: Regular rate and rhythm. Plus S1 and S2. soft murmur in the left sternal border. LUNGS: Decreased breath sounds bilaterally and diffusely based on supine exam. ABDOMEN: Soft and nontender. No rebound. No guarding. No peritoneal sign. EXTREMITIES: No cyanosis. No clubbing. No edema LABORATORY DATA: White count is 11.6, hemoglobin 10, hematocrit 30, platelet count is 245. Stool OB negative. Chem-7, sodium 141, potassium 4.0, BUN is 18, creatinine 0.7. ASSESSMENT: 1. The patient is an 89-year-old female with current medical problem as COVID positive pneumonia resolving. 2. Diabetes. 3. Anemia. 4. Abnormal liver function tests. 5. Sepsis. 6. Dysphagia. 7. Non-ST elevation myocardial infarction. 8. Dementia. 9. Encephalopathy. 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 PLAN: The patient currently getting NG tube feeding which we will continue. Family agreed to PEG so we are going to schedule the patient for Friday. The patient to be NPO after midnight on Friday night for possible PEG on Friday. I want to thank, Dr. Toledo, for this kind referral. Sven Massimo Villalta DR: Elsie JOB#: [id number] CC: Boby Toledo M.D.
[2019-12-31 20:00] VITALS: BP 142/79
[2019-12-31] MEDS: Atorvastatin 20mg tab ORAL SCH (21:37)
--- NOTE | 2019-12-31 22:10 | Infectious Diseases Prog Note ---
Assessment/Plan Problems: (1) Sepsis Assessment & Plan: with Staphylococcus epidermidis grew out of four bottles from both sets, source ? continue vancomycin for two weeks total , repeated blood culture grew the same organism but from one bottle only most likely contaminants. EOT 01/02/20 (2) COVID-19 virus infection Assessment & Plan: keep in enhanced droplet isolation, S/P hydroxychloroquin with zinc and vitamin C for five days total.repeated PCR test times two so far is negative. (3) Viral pneumonia Assessment & Plan: due to COVID 19, S/P hydroxychloroquine , with zinc and vitamin C for five days, Repeated PCR test is negative (4) ROSARIO (acute kidney injury) Assessment & Plan: suspect due to dehydration and poor oral intake improving monitor renal function avoid nephrotoxic's (5) NSTEMI (non-ST elevated myocardial infarction) Assessment & Plan: could be due to COVID 19, cardiology is following monitor troponin level Subjective ROS Limited/Unobtainable: Yes Allergies: Coded Allergies: MEMANTINE (Unverified Allergy, Unknown, 12/15/19) SERTRALINE (Unverified Allergy, Unknown, 12/15/19) Subjective she was laying in bed, responsive only to touch, as in follow commands, no fever today, no SOB, confused , receiving meds though NGT , no agitation , sating well on room air Objective Vital Signs Last 24 Hour Vital Signs Date Time Temp Pulse Resp B/P (MAP) Pulse Ox O2 Delivery O2 Flow Rate FiO2 12/31/19 21:37 142/79 12/31/19 16:00 98.2 87 20 134/58 (83) 97 12/31/19 16:00 76 12/31/19 13:26 129/69 12/31/19 13:25 129/69 12/31/19 12:00 98.7 85 20 129/69 (89) 98 12/31/19 12:00 82 12/31/19 09:00 Room Air 12/31/19 08:00 80 12/31/19 08:00 98.4 83 18 127/66 (86) 96 12/31/19 06:27 124/74 12/31/19 04:00 85 12/31/19 04:00 97.9 82 18 124/74 (91) 97 12/31/19 00:00 98.6 83 18 125/65 (85) 95 12/31/19 00:00 82 Height (Feet): 5 Height (Inches): 0.00 Weight (Pounds): 147 General Appearance: WD/WN, no acute distress, cachetic HEENT: normocephalic, atraumatic, anicteric, mucous membranes moist, PERRL Respiratory/Chest: chest wall non-tender, lungs clear, normal breath sounds, no respiratory distress, no accessory muscle use Cardiovascular: normal peripheral pulses, normal rate, regular rhythm, no gallop/murmur, no JVD Abdomen: normal bowel sounds, soft, non tender, no organomegaly, non distended , no mass, no scars Genitourinary: normal external genitalia Extremities: no cyanosis, no clubbing Skin: no rash, no lesions 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: unresponsiveness Lymphatic: no neck adenopathy, no groin adenopathy Musculoskeletal: normal muscle bulk, no effusion Laboratory Tests Test 12/31/19 06:57 White Blood Count 11.6 K/UL (4.8-10.8) H Red Blood Count 3.31 M/UL (4.20-5.40) L Hemoglobin 10.4 G/DL (12.0-16.0) L Hematocrit 30.7 % (37.0-47.0) #L Mean Corpuscular Volume 93 FL (80-99) Mean Corpuscular Hemoglobin 31.3 PG (27.0-31.0) H Mean Corpuscular Hemoglobin Concent 33.7 G/DL (32.0-36.0) Red Cell Distribution Width 12.3 % (11.6-14.8) Platelet Count 245 K/UL (150-450) # Mean Platelet Volume 6.7 FL (6.5-10.1) Neutrophils (%) (Auto) 69.5 % (45.0-75.0) Lymphocytes (%) (Auto) 25.0 % (20.0-45.0) Monocytes (%) (Auto) 4.0 % (1.0-10.0) Eosinophils (%) (Auto) 0.3 % (0.0-3.0) Basophils (%) (Auto) 1.2 % (0.0-2.0) Sodium Level 141 MMOL/L (136-145) Potassium Level 4.0 MMOL/L (3.5-5.1) Chloride Level 109 MMOL/L (98-107) H Carbon Dioxide Level 27 MMOL/L (21-32) Anion Gap 5 mmol/L (5-15) Blood Urea Nitrogen 18 mg/dL (7-18) Creatinine 0.7 MG/DL (0.55-1.30) Estimat Glomerular Filtration Rate > 60 mL/min (>60) Glucose Level 153 MG/DL (74-106) H Calcium Level 7.9 MG/DL (8.5-10.1) L Phosphorus Level 3.2 MG/DL (2.5-4.9) Magnesium Level 2.0 MG/DL (1.8-2.4) Total Bilirubin 0.2 MG/DL (0.2-1.0) Aspartate Amino Transf (AST/SGOT) 59 U/L (15-37) H Alanine Aminotransferase (ALT/SGPT) 71 U/L (12-78) Alkaline Phosphatase 157 U/L (46-116) H C-Reactive Protein, Quantitative 11.6 mg/dL (0.00-0.90) H Pro-B-Type Natriuretic Peptide 857 pg/mL (0-125) H Total Protein 6.2 G/DL (6.4-8.2) L Albumin 1.3 G/DL (3.4-5.0) L Globulin 4.9 g/dL Albumin/Globulin Ratio 0.3 (1.0-2.7) L Current Medications Medications (Trade) Dose Ordered Sig/Ovi Route PRN Reason Start Time Stop Time Status Last Admin Dose Admin Aspirin (ASA) 81 mg DAILY NG 12/19/19 09:00 02/02/20 08:59 12/31/19 08:20 Atorvastatin Calcium (Lipitor) 20 mg BEDTIME ORAL 12/19/19 21:00 03/18/20 20:59 12/31/19 21:37 Captopril (Capoten) 6.25 mg EVERY 8 HOURS ORAL 12/30/19 14:00 01/24/20 20:59 12/31/19 21:37 Folic Acid (Folate) 2 mg DAILY NG 12/30/19 12:00 01/29/20 11:59 12/31/19 08:20 Heparin Sodium (Porcine) (Heparin 5000 units/ml) 5,000 units EVERY 12 HOURS SUBQ 12/19/19 21:00 02/02/20 20:59 12/31/19 21:39 Lansoprazole (Prevacid) 30 mg BID NG 12/29/19 18:00 01/28/20 17:59 12/31/19 17:34 Nitroglycerin (Ntg) 1 patch Q24H TDERMAL 12/19/19 14:00 01/14/20 13:59 12/31/19 13:26 Valproic Acid (Depakene) 500 mg EVERY 12 HOURS NG 12/18/19 23:15 01/17/20 23:14 12/31/19 21:37 Vancomycin HCl (Vanco rx to dose) 1 ea DAILY PRN MISC Per rx protocol 12/19/19 12:00 01/18/20 11:59 Vancomycin HCl 750 mg/Sodium Chloride 275 ml @ 183.333 mls/hr Q12HR@0300,1500 IVPB 12/28/19 03:00 01/02/20 02:59 12/31/19 14:09 Sukhjinder Howell M.D. December 31, 2019 22:10
[2020-01-01] VITALS: BP 134/68
[2020-01-01] MEDS: Vancomycin 750 MG in NS 275 ML IVPB SCH ×2 (03:28→15:09)
[2020-01-01 04:00] VITALS: BP 131/72
[2020-01-01] MEDS: Captopril 12.5mg tab ORAL SCH ×3 (06:09→22:52)
--- NOTE | 2020-01-01 06:43 | General Progress Note ---
Assessment/Plan Status: stable, unchanged Assessment/Plan: 1. The patient is an 89-year-old female with current medical problem as COVID positive pneumonia resolving. 2. Diabetes. 3. Anemia. 4. Abnormal liver function tests. 5. Sepsis. 6. Dysphagia. 7. Non-ST elevation myocardial infarction. 8. Dementia. 9. Encephalopathy. 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 NGTF for now plan PEG for Friday Subjective ROS Limited/Unobtainable: No Allergies: Coded Allergies: MEMANTINE (Unverified Allergy, Unknown, 12/15/19) SERTRALINE (Unverified Allergy, Unknown, 12/15/19) Objective Last 24 Hour Vital Signs Date Time Temp Pulse Resp B/P (MAP) Pulse Ox O2 Delivery O2 Flow Rate FiO2 01/01/20 06:09 131/72 01/01/20 04:00 96.6 91 18 131/72 (91) 97 01/01/20 04:00 Room Air 01/01/20 04:00 86 01/01/20 00:00 90 01/01/20 00:00 97.2 81 18 134/68 (90) 96 01/01/20 00:00 Room Air 12/31/19 21:37 142/79 12/31/19 21:00 Room Air 12/31/19 20:00 88 12/31/19 20:00 97.7 90 18 142/79 (100) 95 12/31/19 16:00 98.2 87 20 134/58 (83) 97 12/31/19 16:00 76 12/31/19 13:26 129/69 12/31/19 13:25 129/69 12/31/19 12:00 98.7 85 20 129/69 (89) 98 12/31/19 12:00 82 12/31/19 09:00 Room Air 12/31/19 08:00 80 12/31/19 08:00 98.4 83 18 127/66 (86) 96 Intake and Output 12/31/19 01/01/20 19:00 07:00 Intake Total 900 ml Output Total 900 ml Balance -900 ml 900 ml Intake Free Water 300 ml Tube Feeding 600 ml Output Urine Total 900 ml # Voids 1 Laboratory Tests 12/31/19 06:57: White Blood Count 11.6H, Red Blood Count 3.31L, Hemoglobin 10.4L, Hematocrit 30.7#L, Mean Corpuscular Volume 93, Mean Corpuscular Hemoglobin 31.3H, Mean Corpuscular Hemoglobin Concent 33.7, Red Cell Distribution Width 12.3, Platelet Count 245#, Mean Platelet Volume 6.7, Neutrophils (%) (Auto) 69.5, Lymphocytes ( %) (Auto) 25.0, Monocytes (%) (Auto) 4.0, Eosinophils (%) (Auto) 0.3, Basophils (%) (Auto) 1.2, Sodium Level 141, Potassium Level 4.0, Chloride Level 109H, Carbon Dioxide Level 27, Anion Gap 5, Blood Urea Nitrogen 18, Creatinine 0.7, Estimat Glomerular Filtration Rate > 60, Glucose Level 153H, Calcium Level 7.9L , Phosphorus Level 3.2, Magnesium Level 2.0, Total Bilirubin 0.2, Aspartate Amino Transf (AST/SGOT) 59H, Alanine Aminotransferase (ALT/SGPT) 71, Alkaline Phosphatase 157H, C-Reactive Protein, Quantitative 11.6H, Pro-B-Type Natriuretic Peptide 857H, Total Protein 6.2L, Albumin 1.3L, Globulin 4.9, Albumin/Globulin Ratio 0.3L Height (Feet): 5 Height (Inches): 0.00 Weight (Pounds): 149 General Appearance: no apparent distress EENT: normal ENT inspection Neck: supple Cardiovascular: normal rate Respiratory/Chest: decreased breath sounds Abdomen: normal bowel sounds, non tender, soft Extremities: non-tender Sven Villalta MD January 01, 2020 06:43
[2020-01-01 08:00] VITALS: BP 123/70
[2020-01-01] MEDS: Aspirin Baby 81mg NG SCH (09:26)
[2020-01-01] MEDS: Valproic Acid 250mg/5ml Liquid NG SCH ×2 (09:27→20:17)
[2020-01-01] MEDS: Heparin 5000 units/ml inj SUBQ SCH ×2 (09:30→20:17)
--- NOTE | 2020-01-01 09:32 | Pulmonology Progress Note ---
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 01/01/20 0932: Assessment/Plan Assessment/Plan PROBLEMS Confirmed COVID-19 virus infection Viral pneumonia Electrolyte imbalance NSTEMI (non-ST elevated myocardial infarction) Encephalopathy Dehydration ROSARIO (acute kidney injury) Staphylococcus epidermidis bacteremia Anemia Assessment/Plan Confirmed CoVID 19 infection Acute hypoxemic respiratory failure-resolved S epidermis bacteremia Acute renal failure - RESOLVED Severe dehydration - IMPROVED Hypernatremia indicative of free water depletion Hypercalcemia likely due to dehydration Elevated hemoglobin likely secondary to hemoconcentration, now anemia Elevated troponin/NSTEMI Poor p.o. intake / failure to thrive Dementia Hypertension Generalized anxiety disorder Dysphagia Anemia of chronic disease Folate deficiency Plan: * COVID-19 isolation status, confirmed 12/14, * repeat COVID 12/21- and 12/24 NGT -> off isolation * on tele now * monitor oxygenation closely, on RA or only on 1-2L nasal cannula * CXR prn only if worsening symptoms, CXR 12/16 clear lungs * fup CXR 12/25 done , given mild leukocytosis -no acute findings * CRP 11.6 ( down from the highest 23.5) * mild leukocytosis * Vanco per ID, need 2 wks for Staph epidermidis ( repeated BCX 12/20 still + with Staph epidermidis 09/02) * Completed 5 days of Plaquenil * s/p IVF , nephro on board * Monitor electrolytes and renal parameters * TTE per cardio * on a/PLT therapy with ASA, statin , [facility] for afterload reduction * NPO, NGTF's, TELEPHONE OPERATOR CHIEF eval , , strict aspiration precautions, unable to participate in swallow eval * will need either G tube or palliative care * Cont Depakote 500 mg bid from SNF * DVT ppx: heparin SQ * Anemia w/up c/w ACD and folate deficiency, started on folate replacement * stool OB negative * monitor HH with goal to keep Hgb above 7 * Full Code per prior documented ECP notes * Dr Toledo spoke with daughter Dayna Milton 12/27 ([phone]) and discussed further goals of care, she will need to discuss with other family members and will get back to us: either PEG placement or palliative care * awaiting for family decision, daughter decided to continue Full code and wants G tube * GI on board now, * PEG scheduled for Tuesday 01/02 Prophylaxis: Heparin SQ Disposition: downgraded to tele Time Spent (Minutes): 35 Notes Reviewed: cardio, renal, ID Discussed with: nurses, consultants case discussed and evaluated by supervising physician Subjective ROS Limited/Unobtainable: No Interval Events: Allergies: Coded Allergies: MEMANTINE (Unverified Allergy, Unknown, 12/15/19) SERTRALINE (Unverified Allergy, Unknown, 12/15/19) Subjective SARS- CoV -2 by PCR 12/21 and 12/24 not detected creat stable pulse ox stable on RA no fevers , mild leukocytosis remains poorly responsive seen by GI labs still pending for this am Objective Last 24 Hour Vital Signs Date Time Temp Pulse Resp B/P (MAP) Pulse Ox O2 Delivery O2 Flow Rate FiO2 01/01/20 08:00 97.3 76 20 123/70 (87) 98 01/01/20 06:09 131/72 01/01/20 04:00 96.6 91 18 131/72 (91) 97 01/01/20 04:00 Room Air 01/01/20 04:00 86 01/01/20 00:00 90 01/01/20 00:00 97.2 81 18 134/68 (90) 96 01/01/20 00:00 Room Air 12/31/19 21:37 142/79 12/31/19 21:00 Room Air 12/31/19 20:00 88 12/31/19 20:00 97.7 90 18 142/79 (100) 95 12/31/19 16:00 98.2 87 20 134/58 (83) 97 12/31/19 16:00 76 12/31/19 13:26 129/69 12/31/19 13:25 129/69 12/31/19 12:00 98.7 85 20 129/69 (89) 98 12/31/19 12:00 82 Intake and Output 12/31/19 01/01/20 19:00 07:00 Intake Total 900 ml Output Total 900 ml Balance -900 ml 900 ml Intake Free Water 300 ml Tube Feeding 600 ml Output Urine Total 900 ml # Voids 1 Objective General Appearance: WD/WN, in no acute distress elderly AA female HEENT: normocephalic, atraumatic, anicteric, mucous membranes moist, PERRL, NGT Respiratory/Chest: few scattered rhonchi Cardiovascular: normal peripheral pulses, normal rate, regular rhythm, SR on tele Abdomen: normal bowel sounds, soft, non tender, non distended, no mass, no scars Genitourinary: normal external genitalia Extremities: no cyanosis, no clubbing Skin: no rash, no lesions, no ulcers 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, open eyes spontaneously but very poorly responsive Lymphatic: no neck adenopathy, no groin adenopathy Musculoskeletal: muscle atrophy, no effusion 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: unresponsiveness Laboratory Tests 01/01/20 07:55: White Blood Count [Pending], Red Blood Count [Pending], Hemoglobin [Pending], Hematocrit [Pending], Mean Corpuscular Volume [Pending], Mean Corpuscular Hemoglobin [Pending], Mean Corpuscular Hemoglobin Concent [Pending], Red Cell Distribution Width [Pending], Platelet Count [Pending], Mean Platelet Volume [ Pending], Neutrophils (%) (Auto) [Pending], Lymphocytes (%) (Auto) [Pending], Monocytes (%) (Auto) [Pending], Eosinophils (%) (Auto) [Pending], Basophils (%) (Auto) [Pending], Sodium Level [Pending], Potassium Level [Pending], Chloride Level [Pending], Carbon Dioxide Level [Pending], Blood Urea Nitrogen [Pending], Creatinine [Pending], Estimat Glomerular Filtration Rate [Pending], Glucose Level [Pending], Calcium Level [Pending] Current Medications Medications (Trade) Dose Ordered Sig/Ovi Route PRN Reason Start Time Stop Time Status Last Admin Dose Admin Aspirin (ASA) 81 mg DAILY NG 12/19/19 09:00 02/02/20 08:59 12/31/19 08:20 Atorvastatin Calcium (Lipitor) 20 mg BEDTIME ORAL 12/19/19 21:00 03/18/20 20:59 12/31/19 21:37 Captopril (Capoten) 6.25 mg EVERY 8 HOURS ORAL 12/30/19 14:00 01/24/20 20:59 01/01/20 06:09 Folic Acid (Folate) 2 mg DAILY NG 12/30/19 12:00 01/29/20 11:59 12/31/19 08:20 Heparin Sodium (Porcine) (Heparin 5000 units/ml) 5,000 units EVERY 12 HOURS SUBQ 12/19/19 21:00 02/02/20 20:59 12/31/19 21:39 Lansoprazole (Prevacid) 30 mg BID NG 12/29/19 18:00 01/28/20 17:59 12/31/19 17:34 Nitroglycerin (Ntg) 1 patch Q24H TDERMAL 12/19/19 14:00 01/14/20 13:59 12/31/19 13:26 Valproic Acid (Depakene) 500 mg EVERY 12 HOURS NG 12/18/19 23:15 01/17/20 23:14 12/31/19 21:37 Vancomycin HCl (Vanco rx to dose) 1 ea DAILY PRN MISC Per rx protocol 12/19/19 12:00 01/18/20 11:59 Vancomycin HCl 750 mg/Sodium Chloride 275 ml @ 183.333 mls/hr Q12HR@0300,1500 IVPB 12/28/19 03:00 01/02/20 02:59 01/01/20 03:28 Boby Toledo MD 01/01/20 1150: Assessment/Plan Assessment/Plan Patient seen with SINGLE FOLD MACHINE OPERATOR, agree with A&P above as it reflects our joint deliberations. Plan for GT friday. Subjective Allergies: Coded Allergies: MEMANTINE (Unverified Allergy, Unknown, 12/15/19) SERTRALINE (Unverified Allergy, Unknown, 12/15/19) Marge Gutierrez NP January 01, 2020 09:32 Boby Toledo MD January 01, 2020 11:50
[2020-01-01 09:33] LABS: BASOPHILS % (AUTO) 0.9 % (0.0-2.0); EOSINOPHILS % (AUTO) 0.2 % (0.0-3.0); HEMATOCRIT 27.6 % (37.0-47.0); HEMOGLOBIN 9.6 G/DL (12.0-16.0); LYMPHOCYTES % (AUTO) 20.9 % (20.0-45.0); MEAN CORPUSCULAR VOLUME 92 FL (80-99); MONOCYTES % (AUTO) 6.8 % (1.0-10.0); NEUTROPHILS % (AUTO) 71.2 % (45.0-75.0); PLATELET COUNT 374 K/UL (150-450); RED BLOOD COUNT 2.99 M/UL (4.20-5.40); RED CELL DISTRIBUTION WIDTH 12.4 % (11.6-14.8); WHITE BLOOD COUNT 14.2 K/UL (4.8-10.8)
[2020-01-01 09:41] LABS: ANION GAP 5 mmol/L (5-15); BLOOD UREA NITROGEN 20 mg/dL (7-18); CALCIUM 8.4 MG/DL (8.5-10.1); CARBON DIOXIDE 29 MMOL/L (21-32); CHLORIDE 105 MMOL/L (98-107); CREATININE 0.7 MG/DL (0.55-1.30); POTASSIUM 3.8 MMOL/L (3.5-5.1); SODIUM 139 MMOL/L (136-145)
[2020-01-01 12:00] VITALS: BP 127/67
[2020-01-01] MEDS: Nitroglycerin Patch 0.4mg TDERMAL SCH (13:56)
[2020-01-01] MEDS ORDERED: NS 275ml ONE ×2 (15:04→15:05)
[2020-01-01] MEDS ORDERED: Tubing IV Secondary IV ONE ×2 (15:04→15:05)
[2020-01-01 16:00] VITALS: BP 157/62
--- NOTE | 2020-01-01 16:28 | Nephrology Progress Note ---
Assessment/Plan Problem List: (1) ROSARIO (acute kidney injury) (2) Dehydration (3) Electrolyte imbalance (4) NSTEMI (non-ST elevated myocardial infarction) (5) COVID-19 virus infection (6) Anemia Assessment Acute renal failure Severe dehydration Hypernatremia indicative of free water depletion Hypercalcemia likely due to dehydration Elevated hemoglobin likely secondary to hemoconcentration Elevated troponin Poor p.o. intake / failure to thrive Dementia Hypertension Exposure to COVID-19 Plan Covid19 test positive Discontinue potassium chloride p.o. IV Protonix to Prevacid via NG tube At the folic acid to medication Watch declining hemoglobin Aspirin 2D echocardiogram, results still pending Nitropaste Avoid nephrotoxic's Monitor renal parameters Monitor hemoglobin hematocrit Avoid mind altering medication in view of severe lethargy Per orders Subjective ROS Limited/Unobtainable: No Constitutional: Reports: malaise, weakness Objective Objective Last 24 Hour Vital Signs Date Time Temp Pulse Resp B/P (MAP) Pulse Ox O2 Delivery O2 Flow Rate FiO2 01/01/20 16:00 98.1 85 18 157/62 (93) 98 01/01/20 13:56 127/67 01/01/20 13:51 127/67 01/01/20 12:00 97.8 69 20 127/67 (87) 98 01/01/20 12:00 66 01/01/20 09:00 Room Air 01/01/20 08:00 80 01/01/20 08:00 97.3 76 20 123/70 (87) 98 01/01/20 06:09 131/72 01/01/20 04:00 96.6 91 18 131/72 (91) 97 01/01/20 04:00 Room Air 01/01/20 04:00 86 01/01/20 00:00 90 01/01/20 00:00 97.2 81 18 134/68 (90) 96 01/01/20 00:00 Room Air 12/31/19 21:37 142/79 12/31/19 21:00 Room Air 12/31/19 20:00 88 12/31/19 20:00 97.7 90 18 142/79 (100) 95 Intake and Output 12/31/19 01/01/20 19:00 07:00 Intake Total 900 ml Output Total 900 ml Balance -900 ml 900 ml Intake Free Water 300 ml Tube Feeding 600 ml Output Urine Total 900 ml # Voids 1 Laboratory Tests 01/01/20 07:55: White Blood Count 14.2H, Red Blood Count 2.99L, Hemoglobin 9.6L, Hematocrit 27.6L, Mean Corpuscular Volume 92, Mean Corpuscular Hemoglobin 32.1H, Mean Corpuscular Hemoglobin Concent 34.7, Red Cell Distribution Width 12.4, Platelet Count 374#, Mean Platelet Volume 6.3L, Neutrophils (%) (Auto) 71.2, Lymphocytes (%) (Auto) 20.9, Monocytes (%) (Auto) 6.8, Eosinophils (%) (Auto) 0.2, Basophils (%) (Auto) 0.9, Sodium Level 139, Potassium Level 3.8, Chloride Level 105, Carbon Dioxide Level 29, Anion Gap 5, Blood Urea Nitrogen 20H, Creatinine 0.7, Estimat Glomerular Filtration Rate > 60, Glucose Level 120H, Calcium Level 8.4L Height (Feet): 5 Height (Inches): 0.00 Weight (Pounds): 149 Cardiovascular: tachycardia Respiratory/Chest: decreased breath sounds Abdomen: soft Objective No change Robert Foreman MD January 01, 2020 16:27
[2020-01-01 20:00] VITALS: BP 135/88
[2020-01-01] MEDS: Atorvastatin 20mg tab ORAL SCH (20:18)
--- NOTE | 2020-01-01 21:16 | Infectious Diseases Prog Note ---
Assessment/Plan Problems: (1) Sepsis Assessment & Plan: with Staphylococcus epidermidis grew out of four bottles from both sets, source ? continue vancomycin for two weeks total , repeated blood culture grew the same organism but from one bottle only most likely contaminants. EOT 01/02/20 (2) COVID-19 virus infection Assessment & Plan: keep in enhanced droplet isolation, S/P hydroxychloroquin with zinc and vitamin C for five days total.repeated PCR test times two so far is negative. (3) Viral pneumonia Assessment & Plan: due to COVID 19, S/P hydroxychloroquine , with zinc and vitamin C for five days, Repeated PCR test is negative (4) ROSARIO (acute kidney injury) Assessment & Plan: suspect due to dehydration and poor oral intake improving monitor renal function avoid nephrotoxic's (5) NSTEMI (non-ST elevated myocardial infarction) Assessment & Plan: could be due to COVID 19, cardiology is following monitor troponin level (6) Leukocytosis Assessment & Plan: infectious VS reactive , will repeat Blood culture x 2, CXR and UA , continue vancomycin to cover for bacteremia Subjective ROS Limited/Unobtainable: Yes Allergies: Coded Allergies: MEMANTINE (Unverified Allergy, Unknown, 12/15/19) SERTRALINE (Unverified Allergy, Unknown, 12/15/19) Subjective she was laying in bed, awake but not responsive to verbal commands , no fever today, no SOB, still confused , receiving meds though NGT , no agitation , sating well on room air Objective Vital Signs Last 24 Hour Vital Signs Date Time Temp Pulse Resp B/P (MAP) Pulse Ox O2 Delivery O2 Flow Rate FiO2 01/01/20 20:00 94 01/01/20 20:00 97.9 96 20 135/88 (104) 01/01/20 20:00 99 01/01/20 16:00 82 01/01/20 16:00 98.1 85 18 157/62 (93) 98 01/01/20 13:56 127/67 01/01/20 13:51 127/67 01/01/20 12:00 97.8 69 20 127/67 (87) 98 01/01/20 12:00 66 01/01/20 09:00 Room Air 01/01/20 08:00 80 01/01/20 08:00 97.3 76 20 123/70 (87) 98 01/01/20 06:09 131/72 01/01/20 04:00 96.6 91 18 131/72 (91) 97 01/01/20 04:00 Room Air 01/01/20 04:00 86 01/01/20 00:00 90 01/01/20 00:00 97.2 81 18 134/68 (90) 96 01/01/20 00:00 Room Air 12/31/19 21:37 142/79 Height (Feet): 5 Height (Inches): 0.00 Weight (Pounds): 149 General Appearance: WD/WN, no acute distress, cachetic HEENT: normocephalic, atraumatic, anicteric, mucous membranes moist, PERRL Respiratory/Chest: chest wall non-tender, no respiratory distress, no accessory muscle use, decreased breath sounds, crackles/rales Cardiovascular: normal peripheral pulses, normal rate, regular rhythm, no gallop/murmur, no JVD Abdomen: normal bowel sounds, soft, non tender, no organomegaly, non distended , no mass, no scars Genitourinary: normal external genitalia Extremities: no cyanosis, no clubbing Skin: no rash, no lesions 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: alert, unresponsiveness Lymphatic: no neck adenopathy, no groin adenopathy Musculoskeletal: normal muscle bulk, no effusion Laboratory Tests Test 01/01/20 07:55 White Blood Count 14.2 K/UL (4.8-10.8) H Red Blood Count 2.99 M/UL (4.20-5.40) L Hemoglobin 9.6 G/DL (12.0-16.0) L Hematocrit 27.6 % (37.0-47.0) L Mean Corpuscular Volume 92 FL (80-99) Mean Corpuscular Hemoglobin 32.1 PG (27.0-31.0) H Mean Corpuscular Hemoglobin Concent 34.7 G/DL (32.0-36.0) Red Cell Distribution Width 12.4 % (11.6-14.8) Platelet Count 374 K/UL (150-450) # Mean Platelet Volume 6.3 FL (6.5-10.1) L Neutrophils (%) (Auto) 71.2 % (45.0-75.0) Lymphocytes (%) (Auto) 20.9 % (20.0-45.0) Monocytes (%) (Auto) 6.8 % (1.0-10.0) Eosinophils (%) (Auto) 0.2 % (0.0-3.0) Basophils (%) (Auto) 0.9 % (0.0-2.0) Sodium Level 139 MMOL/L (136-145) Potassium Level 3.8 MMOL/L (3.5-5.1) Chloride Level 105 MMOL/L (98-107) Carbon Dioxide Level 29 MMOL/L (21-32) Anion Gap 5 mmol/L (5-15) Blood Urea Nitrogen 20 mg/dL (7-18) H Creatinine 0.7 MG/DL (0.55-1.30) Estimat Glomerular Filtration Rate > 60 mL/min (>60) Glucose Level 120 MG/DL (74-106) H Calcium Level 8.4 MG/DL (8.5-10.1) L Current Medications Medications (Trade) Dose Ordered Sig/Ovi Route PRN Reason Start Time Stop Time Status Last Admin Dose Admin Aspirin (ASA) 81 mg DAILY NG 12/19/19 09:00 02/02/20 08:59 01/01/20 09:26 Atorvastatin Calcium (Lipitor) 20 mg BEDTIME ORAL 12/19/19 21:00 03/18/20 20:59 01/01/20 20:18 Captopril (Capoten) 6.25 mg EVERY 8 HOURS ORAL 12/30/19 14:00 01/24/20 20:59 01/01/20 13:51 Folic Acid (Folate) 2 mg DAILY NG 12/30/19 12:00 01/29/20 11:59 01/01/20 09:26 Heparin Sodium (Porcine) (Heparin 5000 units/ml) 5,000 units EVERY 12 HOURS SUBQ 12/19/19 21:00 02/02/20 20:59 01/01/20 20:17 Lansoprazole (Prevacid) 30 mg BID NG 12/29/19 18:00 01/28/20 17:59 01/01/20 17:30 Nitroglycerin (Ntg) 1 patch Q24H TDERMAL 12/19/19 14:00 01/14/20 13:59 01/01/20 13:56 Valproic Acid (Depakene) 500 mg EVERY 12 HOURS NG 12/18/19 23:15 01/17/20 23:14 01/01/20 20:17 Vancomycin HCl (Vanco rx to dose) 1 ea DAILY PRN MISC Per rx protocol 12/19/19 12:00 01/18/20 11:59 Vancomycin HCl 750 mg/Sodium Chloride 275 ml @ 183.333 mls/hr Q12HR@0300,1500 IVPB 12/28/19 03:00 01/02/20 02:59 01/01/20 15:09 Sukhjinder Howell M.D. January 01, 2020 21:16
--- NOTE | 2020-01-01 21:37 | Cardiology Progress Note ---
Assessment/Plan Assessment/Plan at present time is stable, no new cardiac developments Subjective Subjective The patient is agitated and screaming loudly, she is confused Objective Last 24 Hour Vital Signs Date Time Temp Pulse Resp B/P (MAP) Pulse Ox O2 Delivery O2 Flow Rate FiO2 01/01/20 20:00 94 01/01/20 20:00 97.9 96 20 135/88 (104) 01/01/20 20:00 99 01/01/20 16:00 82 01/01/20 16:00 98.1 85 18 157/62 (93) 98 01/01/20 13:56 127/67 01/01/20 13:51 127/67 01/01/20 12:00 97.8 69 20 127/67 (87) 98 01/01/20 12:00 66 01/01/20 09:00 Room Air 01/01/20 08:00 80 01/01/20 08:00 97.3 76 20 123/70 (87) 98 01/01/20 06:09 131/72 01/01/20 04:00 96.6 91 18 131/72 (91) 97 01/01/20 04:00 Room Air 01/01/20 04:00 86 01/01/20 00:00 90 01/01/20 00:00 97.2 81 18 134/68 (90) 96 01/01/20 00:00 Room Air 12/31/19 21:37 142/79 General Appearance: agitated EENT: PERRL/EOMI Neck: no JVD Rhythm: NSR Cardiovascular: tachycardia Respiratory/Chest: crackles/rales Abdomen: soft Extremities: no swelling Intake and Output 12/31/19 01/01/20 19:00 07:00 Intake Total 900 ml Output Total 900 ml Balance -900 ml 900 ml Intake Free Water 300 ml Tube Feeding 600 ml Output Urine Total 900 ml # Voids 1 Laboratory Tests Test 01/01/20 07:55 White Blood Count 14.2 K/UL (4.8-10.8) H Red Blood Count 2.99 M/UL (4.20-5.40) L Hemoglobin 9.6 G/DL (12.0-16.0) L Hematocrit 27.6 % (37.0-47.0) L Mean Corpuscular Volume 92 FL (80-99) Mean Corpuscular Hemoglobin 32.1 PG (27.0-31.0) H Mean Corpuscular Hemoglobin Concent 34.7 G/DL (32.0-36.0) Red Cell Distribution Width 12.4 % (11.6-14.8) Platelet Count 374 K/UL (150-450) # Mean Platelet Volume 6.3 FL (6.5-10.1) L Neutrophils (%) (Auto) 71.2 % (45.0-75.0) Lymphocytes (%) (Auto) 20.9 % (20.0-45.0) Monocytes (%) (Auto) 6.8 % (1.0-10.0) Eosinophils (%) (Auto) 0.2 % (0.0-3.0) Basophils (%) (Auto) 0.9 % (0.0-2.0) Sodium Level 139 MMOL/L (136-145) Potassium Level 3.8 MMOL/L (3.5-5.1) Chloride Level 105 MMOL/L (98-107) Carbon Dioxide Level 29 MMOL/L (21-32) Anion Gap 5 mmol/L (5-15) Blood Urea Nitrogen 20 mg/dL (7-18) H Creatinine 0.7 MG/DL (0.55-1.30) Estimat Glomerular Filtration Rate > 60 mL/min (>60) Glucose Level 120 MG/DL (74-106) H Calcium Level 8.4 MG/DL (8.5-10.1) L Ericka Griffin MD January 01, 2020 21:37
[2020-01-01 22:42] LABS: APPEARANCE,URINE CLEAR; BILIRUBIN, URINE NEGATIVE (NEGATIVE); COLOR,URINE PALE YELLOW; GLUCOSE, URINE (UA) NEGATIVE (NEGATIVE); KETONES,URINE NEGATIVE (NEGATIVE); LEUKOCYTE ESTERASE ,URINE 3+ (NEGATIVE); NITRITE,URINE NEGATIVE (NEGATIVE); PH,URINE 7 (4.5-8.0); PROTEIN,URINE 2+ (NEGATIVE); UROBILINOGEN,URINE 1 MG/DL (0.0-1.0)
[2020-01-02] VITALS: BP_SYST 135; BP_SYST 141; BP_DIAS 62; BP_DIAS 88
[2020-01-02] MEDS ORDERED: Acetaminophen 650mg/20.3ml NG PRN (01:00)
[2020-01-02 04:00] VITALS: BP 120/56
[2020-01-02] MEDS: Captopril 12.5mg tab ORAL SCH ×3 (05:25→22:00)
--- NOTE | 2020-01-02 06:28 | General Progress Note ---
Assessment/Plan Status: stable, unchanged Assessment/Plan: 1. The patient is an 89-year-old female with current medical problem as COVID positive pneumonia resolving. 2. Diabetes. 3. Anemia. 4. Abnormal liver function tests. 5. Sepsis. 6. Dysphagia. 7. Non-ST elevation myocardial infarction. 8. Dementia. 9. Encephalopathy. 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 NGTF for now plan PEG for Friday Subjective ROS Limited/Unobtainable: No Allergies: Coded Allergies: MEMANTINE (Unverified Allergy, Unknown, 12/15/19) SERTRALINE (Unverified Allergy, Unknown, 12/15/19) Objective Last 24 Hour Vital Signs Date Time Temp Pulse Resp B/P (MAP) Pulse Ox O2 Delivery O2 Flow Rate FiO2 01/02/20 05:25 117/65 01/02/20 04:00 99.5 91 20 120/56 (77) 95 01/02/20 02:03 100.6 01/02/20 00:48 101.7 01/02/20 00:00 97.9 96 20 135/88 (104) 01/02/20 00:00 102.2 94 18 141/62 (88) 94 01/01/20 22:52 141/62 01/01/20 21:00 Room Air 01/01/20 20:00 94 01/01/20 20:00 97.9 96 20 135/88 (104) 01/01/20 20:00 99 01/01/20 16:00 82 01/01/20 16:00 98.1 85 18 157/62 (93) 98 01/01/20 13:56 127/67 01/01/20 13:51 127/67 01/01/20 12:00 97.8 69 20 127/67 (87) 98 01/01/20 12:00 66 01/01/20 09:00 Room Air 01/01/20 08:00 80 01/01/20 08:00 97.3 76 20 123/70 (87) 98 Intake and Output 01/01/20 01/02/20 19:00 07:00 Intake Total 110 ml 730 ml Output Total 500 ml Balance -390 ml 730 ml Intake Free Water 60 ml 280 ml Tube Feeding 50 ml 450 ml Output Urine Total 500 ml # Bowel Movements 1 Laboratory Tests 01/01/20 07:55: White Blood Count 14.2H, Red Blood Count 2.99L, Hemoglobin 9.6L, Hematocrit 27.6L, Mean Corpuscular Volume 92, Mean Corpuscular Hemoglobin 32.1H, Mean Corpuscular Hemoglobin Concent 34.7, Red Cell Distribution Width 12.4, Platelet Count 374#, Mean Platelet Volume 6.3L, Neutrophils (%) (Auto) 71.2, Lymphocytes (%) (Auto) 20.9, Monocytes (%) (Auto) 6.8, Eosinophils (%) (Auto) 0.2, Basophils (%) (Auto) 0.9, Sodium Level 139, Potassium Level 3.8, Chloride Level 105, Carbon Dioxide Level 29, Anion Gap 5, Blood Urea Nitrogen 20H, Creatinine 0.7, Estimat Glomerular Filtration Rate > 60, Glucose Level 120H, Calcium Level 8.4L 01/01/20 22:19: Urine Color Pale yellow, Urine Appearance Clear, Urine pH 7, Urine Specific [place] 1.010, Urine Protein 2+H, Urine Glucose (UA) Negative, Urine Ketones Negative, Urine Blood 5+H, Urine Nitrite Negative, Urine Bilirubin Negative, Urine Urobilinogen 1H, Urine Leukocyte Esterase 3+H, Urine RBC 2-4H, Urine WBC 10-15H, Urine Squamous Epithelial Cells Few, Urine Bacteria Few Height (Feet): 5 Height (Inches): 0.00 Weight (Pounds): 149 General Appearance: no apparent distress EENT: normal ENT inspection Neck: supple Cardiovascular: normal rate Abdomen: normal bowel sounds, non tender, soft Extremities: non-tender Sven Villalta MD January 02, 2020 06:28
[2020-01-02 08:00] VITALS: BP 129/76
[2020-01-02 08:26] LABS: HEMATOCRIT 27.6 % (37.0-47.0); HEMOGLOBIN 9.9 G/DL (12.0-16.0); MEAN CORPUSCULAR VOLUME 91 FL (80-99); PLATELET COUNT 460 K/UL (150-450); RED BLOOD COUNT 3.03 M/UL (4.20-5.40); RED CELL DISTRIBUTION WIDTH 12.2 % (11.6-14.8)
[2020-01-02 08:29] LABS: ANION GAP 4 mmol/L (5-15); BLOOD UREA NITROGEN 17 mg/dL (7-18); CALCIUM 8.3 MG/DL (8.5-10.1); CARBON DIOXIDE 29 MMOL/L (21-32); CHLORIDE 106 MMOL/L (98-107); CREATININE 0.8 MG/DL (0.55-1.30); POTASSIUM 3.7 MMOL/L (3.5-5.1); SODIUM 139 MMOL/L (136-145)
[2020-01-02 08:36] LABS: WHITE BLOOD COUNT 24.3 K/UL (4.8-10.8)
[2020-01-02] MEDS: Aspirin Baby 81mg NG SCH (09:11)
[2020-01-02] MEDS: Valproic Acid 250mg/5ml Liquid NG SCH ×2 (09:11→21:00)
[2020-01-02] MEDS: Heparin 5000 units/ml inj SUBQ SCH ×2 (09:12→21:00)
--- NOTE | 2020-01-02 09:16 | Pulmonology Progress Note ---
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 01/02/20 0916: Assessment/Plan Assessment/Plan PROBLEMS Confirmed COVID-19 virus infection Viral pneumonia Electrolyte imbalance NSTEMI (non-ST elevated myocardial infarction) Encephalopathy Dehydration ROSARIO (acute kidney injury) Staphylococcus epidermidis bacteremia Anemia Assessment/Plan Confirmed CoVID 19 infection Acute hypoxemic respiratory failure-resolved S epidermis bacteremia New leukocytosis with fevers, possible aspiration PNA Acute renal failure - RESOLVED Severe dehydration - IMPROVED Hypernatremia indicative of free water depletion Hypercalcemia likely due to dehydration Elevated hemoglobin likely secondary to hemoconcentration, now anemia Elevated troponin/NSTEMI Poor p.o. intake / failure to thrive Dementia Hypertension Generalized anxiety disorder Dysphagia Anemia of chronic disease Folate deficiency Plan: * COVID-19 isolation status, confirmed 12/14, * repeat COVID 12/21- and 12/24 NGT -> off isolation * on tele now * monitor oxygenation closely, on RA or only on 1-2L nasal cannula * CXR prn only if worsening symptoms, CXR 12/16 clear lungs * fup CXR 12/25 done , given mild leukocytosis -no acute findings * CRP 11.6 ( down from the highest 23.5) * worsening leukocytosis, fevers, recultured 12/31, fup with cx: UA + pyuria, UCX , BCX pending * fup with CXR today * Vanco per ID, need 2 wks for Staph epidermidis ( repeated BCX 12/20 still + with Staph epidermidis 09/02) * discussed ith ID Dr Howell - will add Zosyn for GN coverage and fup with CXR ( ordered 12/31 by ID not done, reordered stat) * Completed 5 days of Plaquenil * s/p IVF , nephro on board * Monitor electrolytes and renal parameters * TTE per cardio * on a/PLT therapy with ASA, statin , [facility] for afterload reduction * NPO, NGTF's, [employer]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 eval , , strict aspiration precautions, unable to participate in swallow eval * will need either G tube or palliative care * Cont Depakote 500 mg bid from [facility] * DVT ppx: heparin SQ * Anemia w/up c/w ACD and folate deficiency, started on folate replacement * stool OB negative * monitor HH with goal to keep Hgb above 7 * Full Code per prior documented ECP notes * Dr Toledo spoke with daughter Dayna Milton 12/27 ([phone]) and discussed further goals of care, she will need to discuss with other family members and will get back to us: either PEG placement or palliative care * awaiting for family decision, daughter decided to continue Full code and wants G tube * GI on board now, * PEG scheduled for Tuesday 01/02 Prophylaxis: Heparin SQ Disposition: downgraded to tele Time Spent (Minutes): 35 Notes Reviewed: cardio, renal, ID Discussed with: nurses, consultants case discussed and evaluated by supervising physician Subjective ROS Limited/Unobtainable: No Interval Events: Allergies: Coded Allergies: MEMANTINE (Unverified Allergy, Unknown, 12/15/19) SERTRALINE (Unverified Allergy, Unknown, 12/15/19) Subjective fever 102/2 last night, currently afebrile, significant leukocytosis WBC 24.3 recultured 12/31 pulse ox stable on RA SARS- CoV -2 by PCR 12/21 and 12/24 not detected seen by GI , PEG planned Objective Last 24 Hour Vital Signs Date Time Temp Pulse Resp B/P (MAP) Pulse Ox O2 Delivery O2 Flow Rate FiO2 01/02/20 08:00 98.0 74 20 129/76 (93) 98 01/02/20 05:25 117/65 01/02/20 04:00 86 01/02/20 04:00 99.5 91 20 120/56 (77) 95 01/02/20 02:03 100.6 01/02/20 00:48 101.7 01/02/20 00:00 97.9 96 20 135/88 (104) 01/02/20 00:00 102.2 94 18 141/62 (88) 94 01/02/20 00:00 98 01/01/20 22:52 141/62 01/01/20 21:00 Room Air 01/01/20 20:00 94 01/01/20 20:00 97.9 96 20 135/88 (104) 01/01/20 20:00 99 01/01/20 16:00 82 01/01/20 16:00 98.1 85 18 157/62 (93) 98 01/01/20 13:56 127/67 01/01/20 13:51 127/67 01/01/20 12:00 97.8 69 20 127/67 (87) 98 01/01/20 12:00 66 Intake and Output 01/01/20 01/02/20 19:00 07:00 Intake Total 110 ml 930 ml Output Total 500 ml 750 ml Balance -390 ml 180 ml Intake Free Water 60 ml 380 ml Tube Feeding 50 ml 550 ml Output Urine Total 500 ml 750 ml # Bowel Movements 1 1 Objective General Appearance: WD/WN, in no acute distress elderly AA female HEENT: normocephalic, atraumatic, anicteric, mucous membranes moist, PERRL, NGT Respiratory/Chest: few scattered rhonchi Cardiovascular: normal peripheral pulses, normal rate, regular rhythm, SR on tele Abdomen: normal bowel sounds, soft, non tender, non distended, no mass, no scars Genitourinary: normal external genitalia Extremities: no cyanosis, no clubbing Skin: no rash, no lesions, no ulcers 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, open eyes spontaneously but very poorly responsive Lymphatic: no neck adenopathy, no groin adenopathy Musculoskeletal: muscle atrophy, no effusion General Appearance: cachetic 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: unresponsiveness Microbiology Date/Time Source Procedure Growth Status 01/01/20 22:19 Indwelling Cath Urine Culture - Preliminary Resulted Laboratory Tests 01/01/20 22:19: Urine Color Pale yellow, Urine Appearance Clear, Urine pH 7, Urine Specific [place] 1.010, Urine Protein 2+H, Urine Glucose (UA) Negative, Urine Ketones Negative, Urine Blood 5+H, Urine Nitrite Negative, Urine Bilirubin Negative, Urine Urobilinogen 1H, Urine Leukocyte Esterase 3+H, Urine RBC 2-4H, Urine WBC 10-15H, Urine Squamous Epithelial Cells Few, Urine Bacteria Few 01/02/20 04:00: White Blood Count 24.3#*H, Red Blood Count 3.03L, Hemoglobin 9.9L, Hematocrit 27.6L, Mean Corpuscular Volume 91, Mean Corpuscular Hemoglobin 32.7H, Mean Corpuscular Hemoglobin Concent 35.9, Red Cell Distribution Width 12.2, Platelet Count 460H, Mean Platelet Volume 6.2L, Neutrophils (%) (Auto) , Lymphocytes (%) (Auto) , Monocytes (%) (Auto) , Eosinophils (%) (Auto) , Basophils (%) (Auto) , Neutrophils % (Manual) [Pending], Lymphocytes % (Manual) [Pending], Platelet Estimate [Pending], Platelet Morphology [Pending] 01/02/20 07:00: Sodium Level 139, Potassium Level 3.7, Chloride Level 106, Carbon Dioxide Level 29, Anion Gap 4L, Blood Urea Nitrogen 17, Creatinine 0.8, Estimat Glomerular Filtration Rate > 60, Glucose Level 135H, Calcium Level 8.3L Current Medications Medications (Trade) Dose Ordered Sig/Ovi Route PRN Reason Start Time Stop Time Status Last Admin Dose Admin Acetaminophen (Tylenol) 650 mg Q4H PRN NG Temp >100.5 01/02/20 01:00 02/01/20 00:59 01/02/20 01:33 Aspirin (ASA) 81 mg DAILY NG 12/19/19 09:00 02/02/20 08:59 01/01/20 09:26 Atorvastatin Calcium (Lipitor) 20 mg BEDTIME ORAL 12/19/19 21:00 03/18/20 20:59 01/01/20 20:18 Captopril (Capoten) 6.25 mg EVERY 8 HOURS ORAL 12/30/19 14:00 01/24/20 20:59 01/02/20 05:25 Folic Acid (Folate) 2 mg DAILY NG 12/30/19 12:00 01/29/20 11:59 01/01/20 09:26 Heparin Sodium (Porcine) (Heparin 5000 units/ml) 5,000 units EVERY 12 HOURS SUBQ 12/19/19 21:00 02/02/20 20:59 01/01/20 20:17 Lansoprazole (Prevacid) 30 mg BID NG 12/29/19 18:00 01/28/20 17:59 01/01/20 17:30 Nitroglycerin (Ntg) 1 patch Q24H TDERMAL 12/19/19 14:00 01/14/20 13:59 01/01/20 13:56 Valproic Acid (Depakene) 500 mg EVERY 12 HOURS NG 12/18/19 23:15 01/17/20 23:14 01/01/20 20:17 Vancomycin HCl (Vanco rx to dose) 1 ea DAILY PRN MISC Per rx protocol 12/19/19 12:00 01/18/20 11:59 Boby Toledo MD 57: Assessment/Plan Assessment/Plan 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 Subjective Allergies: Coded Allergies: MEMANTINE (Unverified Allergy, Unknown, 12/15/19) SERTRALINE (Unverified Allergy, Unknown, 12/15/19) Marge Gutierrez NP January 02, 2020 09:16 Boby Toledo MD January 02, 2020 18:17
--- NOTE | 2020-01-02 10:05 | Diagnostic Imaging Report ---
EXAM: XR Chest, 1 View CLINICAL HISTORY: COUGH TECHNIQUE: Frontal view of the chest. COMPARISON: December 26, 2019. FINDINGS: Distal tip of enteric tube is in the stomach. Cardiac silhouette is mildly enlarged. No edema or failure. No focal consolidative process or pleural effusions. Senescent changes. IMPRESSION: Mildly enlarged cardiac silhouette without edema or failure. No focal consolidative process or pleural effusions.
--- NOTE | 2020-01-02 10:33 | Nephrology Progress Note ---
Assessment/Plan Problem List: (1) ROSARIO (acute kidney injury) (2) Dehydration (3) Electrolyte imbalance (4) NSTEMI (non-ST elevated myocardial infarction) (5) COVID-19 virus infection (6) Anemia Assessment Acute renal failure Severe dehydration Hypernatremia indicative of free water depletion Hypercalcemia likely due to dehydration Elevated hemoglobin likely secondary to hemoconcentration Elevated troponin Poor p.o. intake / failure to thrive Dementia Hypertension Exposure to COVID-19 Plan Covid19 test positive WBC is rising Continue per ID advice Remains stable from renal standpoint of view Previously: Discontinue potassium chloride p.o. IV Protonix to Prevacid via NG tube At the folic acid to medication Watch declining hemoglobin Aspirin 2D echocardiogram, results still pending Nitropaste Avoid nephrotoxic's Monitor renal parameters Monitor hemoglobin hematocrit Avoid mind altering medication in view of severe lethargy Per orders Subjective ROS Limited/Unobtainable: No Constitutional: Reports: malaise, weakness Objective Objective Last 24 Hour Vital Signs Date Time Temp Pulse Resp B/P (MAP) Pulse Ox O2 Delivery O2 Flow Rate FiO2 01/02/20 09:00 Room Air 01/02/20 08:00 75 01/02/20 08:00 98.0 74 20 129/76 (93) 98 01/02/20 05:25 117/65 01/02/20 04:00 86 01/02/20 04:00 99.5 91 20 120/56 (77) 95 01/02/20 02:03 100.6 01/02/20 00:48 101.7 01/02/20 00:00 97.9 96 20 135/88 (104) 01/02/20 00:00 102.2 94 18 141/62 (88) 94 01/02/20 00:00 98 01/01/20 22:52 141/62 01/01/20 21:00 Room Air 01/01/20 20:00 94 01/01/20 20:00 97.9 96 20 135/88 (104) 01/01/20 20:00 99 01/01/20 16:00 82 01/01/20 16:00 98.1 85 18 157/62 (93) 98 01/01/20 13:56 127/67 01/01/20 13:51 127/67 01/01/20 12:00 97.8 69 20 127/67 (87) 98 01/01/20 12:00 66 Intake and Output 01/01/20 01/02/20 19:00 07:00 Intake Total 110 ml 930 ml Output Total 500 ml 750 ml Balance -390 ml 180 ml Intake Free Water 60 ml 380 ml Tube Feeding 50 ml 550 ml Output Urine Total 500 ml 750 ml # Bowel Movements 1 1 Laboratory Tests 01/01/20 22:19: Urine Color Pale yellow, Urine Appearance Clear, Urine pH 7, Urine Specific [place] 1.010, Urine Protein 2+H, Urine Glucose (UA) Negative, Urine Ketones Negative, Urine Blood 5+H, Urine Nitrite Negative, Urine Bilirubin Negative, Urine Urobilinogen 1H, Urine Leukocyte Esterase 3+H, Urine RBC 2-4H, Urine WBC 10-15H, Urine Squamous Epithelial Cells Few, Urine Bacteria Few 01/02/20 04:00: White Blood Count 24.3#*H, Red Blood Count 3.03L, Hemoglobin 9.9L, Hematocrit 27.6L, Mean Corpuscular Volume 91, Mean Corpuscular Hemoglobin 32.7H, Mean Corpuscular Hemoglobin Concent 35.9, Red Cell Distribution Width 12.2, Platelet Count 460H, Mean Platelet Volume 6.2L, Neutrophils (%) (Auto) , Lymphocytes (%) (Auto) , Monocytes (%) (Auto) , Eosinophils (%) (Auto) , Basophils (%) (Auto) , Neutrophils % (Manual) [Pending], Lymphocytes % (Manual) [Pending], Platelet Estimate [Pending], Platelet Morphology [Pending] 01/02/20 07:00: Sodium Level 139, Potassium Level 3.7, Chloride Level 106, Carbon Dioxide Level 29, Anion Gap 4L, Blood Urea Nitrogen 17, Creatinine 0.8, Estimat Glomerular Filtration Rate > 60, Glucose Level 135H, Calcium Level 8.3L Height (Feet): 5 Height (Inches): 0.00 Weight (Pounds): 153 General Appearance: no apparent distress, lethargic EENT: other - Has NG tube Cardiovascular: tachycardia Respiratory/Chest: decreased breath sounds Abdomen: distended Objective No change Robert Foreman MD January 02, 2020 10:33
[2020-01-02 12:00] VITALS: BP 107/52
[2020-01-02] MEDS: Nitroglycerin Patch 0.4mg TDERMAL SCH (14:00)
[2020-01-02] MEDS: Piperacillin/Tazobactam 3.375 GM in NS 110 ML IVPB SCH ×2 (14:08→22:00)
--- NOTE | 2020-01-02 14:57 | Infectious Diseases Prog Note ---
Assessment/Plan Problems: (1) Catheter-associated urinary tract infection Assessment & Plan: start zosyn pending urine culture , ramos was changed on as per the nurse (2) Leukocytosis Assessment & Plan: rule out infectious etiology , will add zosyn empirically to cover for urosepsis pending repeated Blood culture x 2, CXR no acute infiltrates or effusion , and UA showed evidence of infection , continue vancomycin to cover for bacteremia due to staph spp (3) Sepsis Assessment & Plan: with Staphylococcus epidermidis grew out of four bottles from both sets, source ? continue vancomycin for two weeks total , repeated blood culture grew the same organism but from one bottle only most likely contaminants. EOT 01/02/20 (4) COVID-19 virus infection Assessment & Plan: keep in enhanced droplet isolation, S/P hydroxychloroquin with zinc and vitamin C for five days total.repeated PCR test times two so far is negative. (5) Viral pneumonia Assessment & Plan: due to COVID 19, S/P hydroxychloroquine , with zinc and vitamin C for five days, Repeated PCR test is negative (6) ROSARIO (acute kidney injury) Assessment & Plan: suspect due to dehydration and poor oral intake improving monitor renal function avoid nephrotoxic's (7) NSTEMI (non-ST elevated myocardial infarction) Assessment & Plan: could be due to COVID 19, cardiology is following monitor troponin level Subjective ROS Limited/Unobtainable: Yes Allergies: Coded Allergies: MEMANTINE (Unverified Allergy, Unknown, 12/15/19) SERTRALINE (Unverified Allergy, Unknown, 12/15/19) Subjective she was laying in bed, comfortable, not responsive to verbal commands , was spiking fever last night , no cough or SOB, no nausea or vomiting, had two loose bowel movements , no central line Objective Vital Signs Last 24 Hour Vital Signs Date Time Temp Pulse Resp B/P (MAP) Pulse Ox O2 Delivery O2 Flow Rate FiO2 01/02/20 14:00 107/52 01/02/20 14:00 107/52 01/02/20 12:00 98.4 69 20 107/52 (70) 98 01/02/20 12:00 64 01/02/20 09:00 Room Air 01/02/20 08:00 75 01/02/20 08:00 98.0 74 20 129/76 (93) 98 01/02/20 05:25 117/65 01/02/20 04:00 86 01/02/20 04:00 99.5 91 20 120/56 (77) 95 01/02/20 02:03 100.6 01/02/20 00:48 101.7 01/02/20 00:00 97.9 96 20 135/88 (104) 01/02/20 00:00 102.2 94 18 141/62 (88) 94 01/02/20 00:00 98 01/01/20 22:52 141/62 01/01/20 21:00 Room Air 01/01/20 20:00 94 01/01/20 20:00 97.9 96 20 135/88 (104) 01/01/20 20:00 99 01/01/20 16:00 82 01/01/20 16:00 98.1 85 18 157/62 (93) 98 Height (Feet): 5 Height (Inches): 0.00 Weight (Pounds): 153 General Appearance: no acute distress, cachetic HEENT: normocephalic, atraumatic, anicteric, mucous membranes moist, PERRL Respiratory/Chest: chest wall non-tender, no respiratory distress, no accessory muscle use, decreased breath sounds, crackles/rales Cardiovascular: normal peripheral pulses, normal rate, regular rhythm, no gallop/murmur, no JVD Abdomen: normal bowel sounds, soft, non tender, no organomegaly, non distended , no mass, no scars Genitourinary: normal external genitalia Extremities: no cyanosis, no clubbing Skin: no rash, no lesions 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: unresponsiveness Lymphatic: no neck adenopathy, no groin adenopathy Microbiology Date/Time Source Procedure Growth Status 01/01/20 22:19 Indwelling Cath Urine Culture - Preliminary Resulted Laboratory Tests Test 01/01/20 22:19 01/02/20 04:00 01/02/20 07:00 Urine Color Pale yellow Urine Appearance Clear Urine pH 7 (4.5-8.0) Urine Specific [place] 1.010 (1.005-1.035) Urine Protein 2+ (NEGATIVE) H Urine Glucose (UA) Negative (NEGATIVE) Urine Ketones Negative (NEGATIVE) Urine Blood 5+ (NEGATIVE) H Urine Nitrite Negative (NEGATIVE) Urine Bilirubin Negative (NEGATIVE) Urine Urobilinogen 1 MG/DL (0.0-1.0) H Urine Leukocyte Esterase 3+ (NEGATIVE) H Urine RBC 2-4 /HPF (0 - 2) H Urine WBC 10-15 /HPF (0 - 2) H Urine Squamous Epithelial Cells Few /LPF (NONE/OCC) Urine Bacteria Few /HPF (NONE) White Blood Count 24.3 K/UL (4.8-10.8) #*H Red Blood Count 3.03 M/UL (4.20-5.40) L Hemoglobin 9.9 G/DL (12.0-16.0) L Hematocrit 27.6 % (37.0-47.0) L Mean Corpuscular Volume 91 FL (80-99) Mean Corpuscular Hemoglobin 32.7 PG (27.0-31.0) H Mean Corpuscular Hemoglobin Concent 35.9 G/DL (32.0-36.0) Red Cell Distribution Width 12.2 % (11.6-14.8) Platelet Count 460 K/UL (150-450) H Mean Platelet Volume 6.2 FL (6.5-10.1) L Neutrophils (%) (Auto) % (45.0-75.0) Lymphocytes (%) (Auto) % (20.0-45.0) Monocytes (%) (Auto) % (1.0-10.0) Eosinophils (%) (Auto) % (0.0-3.0) Basophils (%) (Auto) % (0.0-2.0) Differential Total Cells Counted 100 Neutrophils % (Manual) 72 % (45-75) Lymphocytes % (Manual) 14 % (20-45) L Monocytes % (Manual) 10 % (1-10) Eosinophils % (Manual) 0 % (0-3) Basophils % (Manual) 0 % (0-2) Band Neutrophils 4 % (0-8) Platelet Estimate Increased H Platelet Morphology Normal Red Blood Cell Morphology Normal Sodium Level 139 MMOL/L (136-145) Potassium Level 3.7 MMOL/L (3.5-5.1) Chloride Level 106 MMOL/L (98-107) Carbon Dioxide Level 29 MMOL/L (21-32) Anion Gap 4 mmol/L (5-15) L Blood Urea Nitrogen 17 mg/dL (7-18) Creatinine 0.8 MG/DL (0.55-1.30) Estimat Glomerular Filtration Rate > 60 mL/min (>60) Glucose Level 135 MG/DL (74-106) H Calcium Level 8.3 MG/DL (8.5-10.1) L Current Medications Medications (Trade) Dose Ordered Sig/Ovi Route PRN Reason Start Time Stop Time Status Last Admin Dose Admin Acetaminophen (Tylenol) 650 mg Q4H PRN NG Temp >100.5 01/02/20 01:00 02/01/20 00:59 01/02/20 01:33 Aspirin (ASA) 81 mg DAILY NG 12/19/19 09:00 02/02/20 08:59 01/02/20 09:11 Atorvastatin Calcium (Lipitor) 20 mg BEDTIME ORAL 12/19/19 21:00 03/18/20 20:59 01/01/20 20:18 Captopril (Capoten) 6.25 mg EVERY 8 HOURS ORAL 12/30/19 14:00 01/24/20 20:59 01/02/20 05:25 Folic Acid (Folate) 2 mg DAILY NG 12/30/19 12:00 01/29/20 11:59 01/02/20 09:11 Heparin Sodium (Porcine) (Heparin 5000 units/ml) 5,000 units EVERY 12 HOURS SUBQ 12/19/19 21:00 02/02/20 20:59 01/02/20 09:12 Lansoprazole (Prevacid) 30 mg BID NG 12/29/19 18:00 01/28/20 17:59 01/02/20 09:11 Nitroglycerin (Ntg) 1 patch Q24H TDERMAL 12/19/19 14:00 01/14/20 13:59 01/01/20 13:56 Piperacillin Sod/ Tazobactam Sod 3.375 gm/Sodium Chloride 110 ml @ 27.5 mls/hr EVERY 8 HOURS IVPB 01/02/20 14:00 01/07/20 13:59 01/02/20 14:08 Valproic Acid (Depakene) 500 mg EVERY 12 HOURS NG 12/18/19 23:15 01/17/20 23:14 01/02/20 09:11 Vancomycin HCl (Vanco rx to dose) 1 ea DAILY PRN MISC Per rx protocol 12/19/19 12:00 01/18/20 11:59 Sukhjinder Howell M.D. January 02, 2020 14:57
[2020-01-02 16:00] VITALS: BP 140/60
--- NOTE | 2020-01-02 16:13 | Cardiology Progress Note ---
Assessment/Plan Assessment/Plan at present time is stable, no new cardiac developments Subjective Subjective The patient is agitated and screaming loudly, she is confused Objective Last 24 Hour Vital Signs Date Time Temp Pulse Resp B/P (MAP) Pulse Ox O2 Delivery O2 Flow Rate FiO2 01/02/20 14:00 107/52 01/02/20 14:00 107/52 01/02/20 12:00 98.4 69 20 107/52 (70) 98 01/02/20 12:00 64 01/02/20 09:00 Room Air 01/02/20 08:00 75 01/02/20 08:00 98.0 74 20 129/76 (93) 98 01/02/20 05:25 117/65 01/02/20 04:00 86 01/02/20 04:00 99.5 91 20 120/56 (77) 95 01/02/20 02:03 100.6 01/02/20 00:48 101.7 01/02/20 00:00 97.9 96 20 135/88 (104) 01/02/20 00:00 102.2 94 18 141/62 (88) 94 01/02/20 00:00 98 01/01/20 22:52 141/62 01/01/20 21:00 Room Air 01/01/20 20:00 94 01/01/20 20:00 97.9 96 20 135/88 (104) 01/01/20 20:00 99 General Appearance: mild distress, agitated EENT: PERRL/EOMI Neck: supple Rhythm: ST Cardiovascular: regular rhythm Respiratory/Chest: crackles/rales Abdomen: soft Extremities: no swelling Intake and Output 01/01/20 01/02/20 19:00 07:00 Intake Total 110 ml 930 ml Output Total 500 ml 750 ml Balance -390 ml 180 ml Intake Free Water 60 ml 380 ml Tube Feeding 50 ml 550 ml Output Urine Total 500 ml 750 ml # Bowel Movements 1 1 Laboratory Tests Test 01/01/20 22:19 01/02/20 04:00 01/02/20 07:00 Urine Color Pale yellow Urine Appearance Clear Urine pH 7 (4.5-8.0) Urine Specific [place] 1.010 (1.005-1.035) Urine Protein 2+ (NEGATIVE) H Urine Glucose (UA) Negative (NEGATIVE) Urine Ketones Negative (NEGATIVE) Urine Blood 5+ (NEGATIVE) H Urine Nitrite Negative (NEGATIVE) Urine Bilirubin Negative (NEGATIVE) Urine Urobilinogen 1 MG/DL (0.0-1.0) H Urine Leukocyte Esterase 3+ (NEGATIVE) H Urine RBC 2-4 /HPF (0 - 2) H Urine WBC 10-15 /HPF (0 - 2) H Urine Squamous Epithelial Cells Few /LPF (NONE/OCC) Urine Bacteria Few /HPF (NONE) White Blood Count 24.3 K/UL (4.8-10.8) #*H Red Blood Count 3.03 M/UL (4.20-5.40) L Hemoglobin 9.9 G/DL (12.0-16.0) L Hematocrit 27.6 % (37.0-47.0) L Mean Corpuscular Volume 91 FL (80-99) Mean Corpuscular Hemoglobin 32.7 PG (27.0-31.0) H Mean Corpuscular Hemoglobin Concent 35.9 G/DL (32.0-36.0) Red Cell Distribution Width 12.2 % (11.6-14.8) Platelet Count 460 K/UL (150-450) H Mean Platelet Volume 6.2 FL (6.5-10.1) L Neutrophils (%) (Auto) % (45.0-75.0) Lymphocytes (%) (Auto) % (20.0-45.0) Monocytes (%) (Auto) % (1.0-10.0) Eosinophils (%) (Auto) % (0.0-3.0) Basophils (%) (Auto) % (0.0-2.0) Differential Total Cells Counted 100 Neutrophils % (Manual) 72 % (45-75) Lymphocytes % (Manual) 14 % (20-45) L Monocytes % (Manual) 10 % (1-10) Eosinophils % (Manual) 0 % (0-3) Basophils % (Manual) 0 % (0-2) Band Neutrophils 4 % (0-8) Platelet Estimate Increased H Platelet Morphology Normal Red Blood Cell Morphology Normal Sodium Level 139 MMOL/L (136-145) Potassium Level 3.7 MMOL/L (3.5-5.1) Chloride Level 106 MMOL/L (98-107) Carbon Dioxide Level 29 MMOL/L (21-32) Anion Gap 4 mmol/L (5-15) L Blood Urea Nitrogen 17 mg/dL (7-18) Creatinine 0.8 MG/DL (0.55-1.30) Estimat Glomerular Filtration Rate > 60 mL/min (>60) Glucose Level 135 MG/DL (74-106) H Calcium Level 8.3 MG/DL (8.5-10.1) L Microbiology Date/Time Source Procedure Growth Status 01/01/20 22:19 Indwelling Cath Urine Culture - Preliminary Resulted Ericka Griffin MD January 02, 2020 16:13
[2020-01-02 20:00] VITALS: BP 144/73
[2020-01-02] MEDS: Atorvastatin 20mg tab ORAL SCH (21:00)
[2020-01-03 00:06] VITALS: BP 142/86
[2020-01-03 04:00] VITALS: BP 150/70
[2020-01-03] MEDS: Captopril 12.5mg tab ORAL SCH ×3 (06:16→22:12)
[2020-01-03] MEDS: Piperacillin/Tazobactam 3.375 GM in NS 110 ML IVPB SCH ×3 (06:16→22:13)
[2020-01-03 08:00] VITALS: BP 156/73
--- NOTE | 2020-01-03 08:56 | Pulmonology Progress Note ---
Gutierrez Marge [employer] [place] [employer] 01/03/20 0856: Assessment/Plan Assessment/Plan PROBLEMS Confirmed COVID-19 virus infection Viral pneumonia Electrolyte imbalance NSTEMI (non-ST elevated myocardial infarction) Encephalopathy Dehydration ROSARIO (acute kidney injury) Staphylococcus epidermidis bacteremia Anemia Assessment/Plan Confirmed CoVID 19 infection Acute hypoxemic respiratory failure-resolved S epidermis bacteremia New leukocytosis with fevers, UTI Possible ? aspiration Acute renal failure - RESOLVED Severe dehydration - IMPROVED Hypernatremia indicative of free water depletion Hypercalcemia likely due to dehydration Elevated hemoglobin likely secondary to hemoconcentration, now anemia Elevated troponin/NSTEMI Poor p.o. intake / failure to thrive Dementia Hypertension Generalized anxiety disorder Dysphagia Anemia of chronic disease Folate deficiency Plan: * COVID-19 isolation status, confirmed 12/14, * repeat COVID 12/21- and 12/24 NGT -> off isolation * on tele now * monitor oxygenation closely, on RA or only on 1-2L nasal cannula * CXR prn only if worsening symptoms, CXR 12/16 clear lungs * fup CXR 12/25 done , given mild leukocytosis -no acute findings * CRP 11.6 ( down from the highest 23.5) * worsening leukocytosis, fevers, recultured 12/31, fup with cx: UA + pyuria, UCX- GNB ; BCX -NGTD * CXR 01/01 No focal consolidative process or pleural effusions, not likely PNA, leuk probably due to UTI * also check stool C dif * Vanco per ID, need 2 wks for Staph epidermidis ( repeated BCX 12/20 still + with Staph epidermidis 09/02) * discussed ith ID Dr Hwoell - Tin added for GN coverage 01/01 * Completed 5 days of Plaquenil * s/p IVF , nephro on board * Monitor electrolytes and renal parameters * TTE per cardio * on a/PLT therapy with ASA, statin , [facility] for afterload reduction * NPO, NGTF's, BANQUET COOK eval , , strict aspiration precautions, unable to participate in swallow eval * will need either G tube or palliative care * Cont Depakote 500 mg bid from SNF * DVT ppx: heparin SQ * Anemia w/up c/w ACD and folate deficiency, started on folate replacement * stool OB negative * monitor HH with goal to keep Hgb above 7 * Full Code per prior documented ECP notes * Dr Toledo spoke with daughter Dayna Milton 12/27 ([phone]) and discussed further goals of care, she will need to discuss with other family members and will get back to us: either PEG placement or palliative care * awaiting for family decision, daughter decided to continue Full code and wants G tube * GI on board now, * PEG scheduled for Tuesday 01/02 Prophylaxis: Heparin SQ Disposition: downgraded to tele Time Spent (Minutes): 35 Notes Reviewed: cardio, renal, ID Discussed with: nurses, consultants case discussed and evaluated by supervising physician Subjective ROS Limited/Unobtainable: No Interval Events: Allergies: Coded Allergies: MEMANTINE (Unverified Allergy, Unknown, 12/15/19) SERTRALINE (Unverified Allergy, Unknown, 12/15/19) Subjective fever 101.7 last night, currently afebrile significant leucocytosis 01/01 -24.3 ; labs pending for this am recultured 12/31 pulse ox stable on RA SARS- CoV -2 by PCR 12/21 and 12/24 not detected seen by GI , PEG planned for today pending labs Objective Last 24 Hour Vital Signs Date Time Temp Pulse Resp B/P (MAP) Pulse Ox O2 Delivery O2 Flow Rate FiO2 01/03/20 06:16 150/70 01/03/20 04:00 98.3 80 18 150/70 (96) 99 01/03/20 04:00 77 01/03/20 00:06 97.9 76 20 142/86 (104) 96 01/03/20 00:00 75 01/02/20 22:00 144/73 01/02/20 21:00 Room Air 01/02/20 20:00 72 01/02/20 20:00 98.0 75 20 144/73 (96) 95 01/02/20 16:00 74 01/02/20 16:00 98.1 77 20 140/60 (86) 97 01/02/20 14:00 107/52 01/02/20 14:00 107/52 01/02/20 12:00 98.4 69 20 107/52 (70) 98 01/02/20 12:00 64 01/02/20 09:00 Room Air Intake and Output 01/02/20 01/03/20 19:00 07:00 Output Total 450 ml 700 ml Balance -450 ml -700 ml Output Urine Total 450 ml 700 ml Objective General Appearance: WD/WN, in no acute distress elderly AA female HEENT: normocephalic, atraumatic, anicteric, mucous membranes moist, PERRL, NGT Respiratory/Chest: few scattered rhonchi Cardiovascular: normal peripheral pulses, normal rate, regular rhythm, SR on tele Abdomen: normal bowel sounds, soft, non tender, non distended, no mass, no scars Genitourinary: normal external genitalia Extremities: no cyanosis, no clubbing Skin: no rash, no lesions, no ulcers 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: plug maker II-XII grossly normal, open eyes spontaneously but very poorly responsive Lymphatic: no neck adenopathy, no groin adenopathy Musculoskeletal: muscle atrophy, no effusion General Appearance: cachetic 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: unresponsiveness Microbiology Date/Time Source Procedure Growth Status 01/02/20 01:00 Blood Blood Culture - Preliminary NO GROWTH AFTER 24 HOURS Resulted 01/01/20 22:19 Indwelling Cath Urine Culture - Preliminary Gram Negative Bacillus 1 Resulted Current Medications Medications (Trade) Dose Ordered Sig/Ovi Route PRN Reason Start Time Stop Time Status Last Admin Dose Admin Acetaminophen (Tylenol) 650 mg Q4H PRN NG Temp >100.5 01/02/20 01:00 02/01/20 00:59 01/02/20 01:33 Aspirin (ASA) 81 mg DAILY NG 12/19/19 09:00 02/02/20 08:59 01/02/20 09:11 Atorvastatin Calcium (Lipitor) 20 mg BEDTIME ORAL 12/19/19 21:00 03/18/20 20:59 01/02/20 21:00 Captopril (Capoten) 6.25 mg EVERY 8 HOURS ORAL 12/30/19 14:00 01/24/20 20:59 01/03/20 06:16 Folic Acid (Folate) 2 mg DAILY NG 12/30/19 12:00 01/29/20 11:59 01/02/20 09:11 Heparin Sodium (Porcine) (Heparin 5000 units/ml) 5,000 units EVERY 12 HOURS SUBQ 12/19/19 21:00 02/02/20 20:59 01/02/20 21:00 Lansoprazole (Prevacid) 30 mg BID NG 12/29/19 18:00 01/28/20 17:59 01/02/20 17:43 Nitroglycerin (Ntg) 1 patch Q24H TDERMAL 12/19/19 14:00 01/14/20 13:59 01/01/20 13:56 Piperacillin Sod/ Tazobactam Sod 3.375 gm/Sodium Chloride 110 ml @ 27.5 mls/hr EVERY 8 HOURS IVPB 01/02/20 14:00 01/07/20 13:59 01/03/20 06:16 Valproic Acid (Depakene) 500 mg EVERY 12 HOURS NG 12/18/19 23:15 01/17/20 23:14 01/02/20 21:00 Vancomycin HCl (Vanco rx to dose) 1 ea DAILY PRN MISC Per rx protocol 12/19/19 12:00 01/18/20 11:59 Boby Toledo MD 01/03/20 1347: Assessment/Plan Assessment/Plan Patient seen and examined with [employer] [place] [employer], agree with A&P outlined above as it reflects our joint deliberations. PEG postponed, WCt downtrending. Subjective Allergies: Coded Allergies: MEMANTINE (Unverified Allergy, Unknown, 12/15/19) SERTRALINE (Unverified Allergy, Unknown, 12/15/19) Marge Gutierrez NP January 03, 2020 08:56 Boby Toledo MD January 03, 2020 13:47
[2020-01-03] MEDS: Aspirin Baby 81mg NG SCH (09:00)
[2020-01-03] MEDS: Heparin 5000 units/ml inj SUBQ SCH ×2 (09:00→22:15)
[2020-01-03 09:18] LABS: EOSINOPHILS % (AUTO) 0.3 % (0.0-3.0); HEMATOCRIT 31.7 % (37.0-47.0); HEMOGLOBIN 10.2 G/DL (12.0-16.0); LYMPHOCYTES % (AUTO) 10.5 % (20.0-45.0); MEAN CORPUSCULAR VOLUME 99 FL (80-99); MONOCYTES % (AUTO) 7.8 % (1.0-10.0); NEUTROPHILS % (AUTO) 80.4 % (45.0-75.0); PLATELET COUNT 577 K/UL (150-450); RED BLOOD COUNT 3.19 M/UL (4.20-5.40); RED CELL DISTRIBUTION WIDTH 14.2 % (11.6-14.8); WHITE BLOOD COUNT 17.7 K/UL (4.8-10.8)
[2020-01-03] MEDS: Valproic Acid 250mg/5ml Liquid NG SCH ×2 (09:20→22:06)
--- NOTE | 2020-01-03 09:37 | General Progress Note ---
Assessment/Plan Status: stable, unchanged Assessment/Plan: 1. The patient is an 89-year-old female with current medical problem as COVID positive pneumonia resolving. 2. Diabetes. 3. Anemia. 4. Abnormal liver function tests. 5. Sepsis. 6. Dysphagia. 7. Non-ST elevation myocardial infarction. 8. Dementia. 9. Encephalopathy. 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 PEG was canceled today due to persistent elevated wbc and patient still in isolation resume NGTF for now plan PEG when off isolation and WBC is better Subjective ROS Limited/Unobtainable: No Allergies: Coded Allergies: MEMANTINE (Unverified Allergy, Unknown, 12/15/19) SERTRALINE (Unverified Allergy, Unknown, 12/15/19) Objective Last 24 Hour Vital Signs Date Time Temp Pulse Resp B/P (MAP) Pulse Ox O2 Delivery O2 Flow Rate FiO2 01/03/20 06:16 150/70 01/03/20 04:00 98.3 80 18 150/70 (96) 99 01/03/20 04:00 77 01/03/20 00:06 97.9 76 20 142/86 (104) 96 01/03/20 00:00 75 01/02/20 22:00 144/73 01/02/20 21:00 Room Air 01/02/20 20:00 72 01/02/20 20:00 98.0 75 20 144/73 (96) 95 01/02/20 16:00 74 01/02/20 16:00 98.1 77 20 140/60 (86) 97 01/02/20 14:00 107/52 01/02/20 14:00 107/52 01/02/20 12:00 98.4 69 20 107/52 (70) 98 01/02/20 12:00 64 Intake and Output 01/02/20 01/03/20 19:00 07:00 Output Total 450 ml 700 ml Balance -450 ml -700 ml Output Urine Total 450 ml 700 ml Laboratory Tests 01/03/20 08:35: White Blood Count 17.7H, Red Blood Count 3.19L, Hemoglobin 10.2L, Hematocrit 31.7L, Mean Corpuscular Volume 99#, Mean Corpuscular Hemoglobin 31.9H, Mean Corpuscular Hemoglobin Concent 32.1, Red Cell Distribution Width 14.2, Platelet Count 577H, Mean Platelet Volume 6.8, Neutrophils (%) (Auto) 80.4H, Lymphocytes (%) (Auto) 10.5L, Monocytes (%) (Auto) 7.8, Eosinophils (%) (Auto) 0.3, Basophils (%) (Auto) 1.0, Prothrombin Time [Pending], Prothromb Time International Ratio [Pending], Sodium Level [Pending], Potassium Level [Pending] , Chloride Level [Pending], Carbon Dioxide Level [Pending], Blood Urea Nitrogen [Pending], Creatinine [Pending], Estimat Glomerular Filtration Rate [Pending], Glucose Level [Pending], Uric Acid [Pending], Calcium Level [Pending], Phosphorus Level [Pending], Magnesium Level [Pending], Ferritin [Pending], Total Bilirubin [Pending], Direct Bilirubin [Pending], Gamma Glutamyl Transpeptidase [Pending], Aspartate Amino Transf (AST/SGOT) [Pending], Alanine Aminotransferase (ALT/SGPT) [Pending], Alkaline Phosphatase [Pending], Lactate Dehydrogenase [Pending], Total Creatine Kinase [Pending], C-Reactive Protein, Quantitative [Pending], Pro-B-Type Natriuretic Peptide [Pending], Total Protein [Pending], Albumin [Pending] Height (Feet): 5 Height (Inches): 0.00 Weight (Pounds): 153 General Appearance: no apparent distress EENT: normal ENT inspection Neck: supple Cardiovascular: normal rate Respiratory/Chest: decreased breath sounds Abdomen: normal bowel sounds, non tender, soft Extremities: non-tender Sven Villalta MD January 03, 2020 09:37
[2020-01-03 09:46] LABS: ALANINE AMINOTRANSFERASE 44 U/L (12-78); ALBUMIN 1.4 G/DL (3.4-5.0); ALKALINE PHOSPHATASE 148 U/L (46-116); ASPARTATE AMINO TRANSFERASE 36 U/L (15-37); BILIRUBIN,DIRECT 0.1 MG/DL (0.0-0.3); BILIRUBIN,TOTAL 0.2 MG/DL (0.2-1.0); CREATINE KINASE 45 U/L (26-308); GAMMA GLUTAMYL TRANSPEPTIDASE 107 U/L (5-85); LACTATE DEHYDROGENASE 306 U/L (81-234); PHOSPHORUS 4.2 MG/DL (2.5-4.9)
[2020-01-03 10:07] LABS: ANION GAP 5 mmol/L (5-15); BLOOD UREA NITROGEN 14 mg/dL (7-18); CALCIUM 8.6 MG/DL (8.5-10.1); CARBON DIOXIDE 30 MMOL/L (21-32); CHLORIDE 101 MMOL/L (98-107); CREATININE 0.6 MG/DL (0.55-1.30); FERRITIN 436 NG/ML (8-388); POTASSIUM 3.8 MMOL/L (3.5-5.1); SODIUM 136 MMOL/L (136-145)
--- NOTE | 2020-01-03 11:51 | Nephrology Progress Note ---
Assessment/Plan Problem List: (1) ROSARIO (acute kidney injury) (2) Dehydration (3) Electrolyte imbalance (4) NSTEMI (non-ST elevated myocardial infarction) (5) COVID-19 virus infection (6) Anemia Assessment Acute renal failure Severe dehydration Hypernatremia indicative of free water depletion Hypercalcemia likely due to dehydration Elevated hemoglobin likely secondary to hemoconcentration Elevated troponin Poor p.o. intake / failure to thrive Dementia Hypertension Exposure to COVID-19 Plan Covid19 test positive WBCs carlene to over 24,000 but today is 17,000 Is being scheduled for PEG insertion Stable from renal standpoint to view Continue per ID advice Previously: Discontinue potassium chloride p.o. IV Protonix to Prevacid via NG tube At the folic acid to medication Watch declining hemoglobin Aspirin 2D echocardiogram, results still pending Nitropaste Avoid nephrotoxic's Monitor renal parameters Monitor hemoglobin hematocrit Avoid mind altering medication in view of severe lethargy Per orders Subjective ROS Limited/Unobtainable: No Constitutional: Reports: malaise Objective Objective Last 24 Hour Vital Signs Date Time Temp Pulse Resp B/P (MAP) Pulse Ox O2 Delivery O2 Flow Rate FiO2 01/03/20 09:00 Room Air 01/03/20 08:00 74 01/03/20 08:00 97.9 60 18 156/73 (100) 96 01/03/20 06:16 150/70 01/03/20 04:00 98.3 80 18 150/70 (96) 99 01/03/20 04:00 77 01/03/20 00:06 97.9 76 20 142/86 (104) 96 01/03/20 00:00 75 01/02/20 22:00 144/73 01/02/20 21:00 Room Air 01/02/20 20:00 72 01/02/20 20:00 98.0 75 20 144/73 (96) 95 01/02/20 16:00 74 01/02/20 16:00 98.1 77 20 140/60 (86) 97 01/02/20 14:00 107/52 01/02/20 14:00 107/52 01/02/20 12:00 98.4 69 20 107/52 (70) 98 01/02/20 12:00 64 Intake and Output 01/02/20 01/03/20 19:00 07:00 Output Total 450 ml 700 ml Balance -450 ml -700 ml Output Urine Total 450 ml 700 ml Laboratory Tests 01/03/20 08:35: White Blood Count 17.7H, Red Blood Count 3.19L, Hemoglobin 10.2L, Hematocrit 31.7L, Mean Corpuscular Volume 99#, Mean Corpuscular Hemoglobin 31.9H, Mean Corpuscular Hemoglobin Concent 32.1, Red Cell Distribution Width 14.2, Platelet Count 577H, Mean Platelet Volume 6.8, Neutrophils (%) (Auto) 80.4H, Lymphocytes (%) (Auto) 10.5L, Monocytes (%) (Auto) 7.8, Eosinophils (%) (Auto) 0.3, Basophils (%) (Auto) 1.0, Prothrombin Time 10.8, Prothromb Time International Ratio 1.0, Sodium Level 136, Potassium Level 3.8, Chloride Level 101, Carbon Dioxide Level 30, Anion Gap 5, Blood Urea Nitrogen 14, Creatinine 0.6, Estimat Glomerular Filtration Rate > 60, Glucose Level 108H, Uric Acid 2.2L, Calcium Level 8.6, Phosphorus Level 4.2, Magnesium Level 2.0, Ferritin 436H, Total Bilirubin 0.2, Direct Bilirubin 0.1, Gamma Glutamyl Transpeptidase 107H, Aspartate Amino Transf (AST/SGOT) 36, Alanine Aminotransferase (ALT/SGPT) 44, Alkaline Phosphatase 148H, Lactate Dehydrogenase 306H, Total Creatine Kinase 45 , C-Reactive Protein, Quantitative 16.1H, Pro-B-Type Natriuretic Peptide 1222H, Total Protein 5.7L, Albumin 1.4L Height (Feet): 5 Height (Inches): 0.00 Weight (Pounds): 153 General Appearance: no apparent distress, lethargic EENT: other - Has NG tube Cardiovascular: normal rate Respiratory/Chest: decreased breath sounds Abdomen: soft Objective No change Robert Foreman MD January 03, 2020 11:51
[2020-01-03 12:00] VITALS: BP 142/109
[2020-01-03] MEDS: Nitroglycerin Patch 0.4mg TDERMAL SCH (14:47)
--- NOTE | 2020-01-03 15:51 | Consultation ---
History of Present Illness General Date patient seen: January 03, 2020 Reason for Hospitalization: Abnormal Labs Present Illness HPI This is a pleasant 81-year-old female with multiple medical comorbidities who is a long term resident that was admitted for further work-up evaluation [facility] home had a outbreak has been in the hospital for some time now but recently had acute worsening leukocytosis, abnormal LFTs, abnormal labs, as well as significant hypoalbuminemia. Nutritionally deprived and ill-appearing. Acute worsening surgery called to assist and evaluate. Patient seen, patient evaluated, chart reviewed. Patient is a nonverbal at baseline. She does track with her eyes. Feeding tube in nares tolerating tube feeds. Mildly contracted lower extremities. Unable to provide history. Allergies: Coded Allergies: MEMANTINE (Unverified Allergy, Unknown, 12/15/19) SERTRALINE (Unverified Allergy, Unknown, 12/15/19) COVID-19 Screening Contact w/high risk pt: Yes Recent Travel to affected area: No Experienced COVID-19 symptoms?: No Medication History Scheduled Aspirin* (Aspirin*), 81 MG ORAL DAILY, (Reported) Docusate Sodium* (Colace*), 100 MG ORAL DAILY, (Reported) Magnesium Hydroxide* (Milk Of Magnesia*), 30 ML ORAL DAILY, (Reported) Mirtazapine* (Remeron*), 15 MG ORAL BEDTIME, (Reported) Ranitidine Hcl* (Zantac*), 150 MG ORAL DAILY, (Reported) Scheduled PRN Acetaminophen* (Acetaminophen 325MG Tablet*), 325 MG ORAL Q4H PRN for For Pain, (Reported) Miscellaneous Medications Bisacodyl (Dulcolax), 10 MG RC, (Reported) Calcium Carbonate/Vitamin D3 (Calcium 500 + Vit D 200 Caplet), 1 EACH PO, ( Reported) Sennosides (Senna), 8.6 MG PO, (Reported) Valproate Sodium (Valproic Acid), 250 MG PO, (Reported) Patient History Limited by: medical condition History Provided By: Medical Record, PMD Healthcare decision maker Resuscitation status Full Code Advanced Directive on File No Past Medical/Surgical History Past Medical/Surgical History: (1) Contusion (2) Sprain of wrist (3) History of fall (4) Muscle strain (5) acute cervical strain (6) Encephalopathy (7) Dehydration (8) ROSARIO (acute kidney injury) (9) Electrolyte imbalance (10) NSTEMI (non-ST elevated myocardial infarction) (11) Viral pneumonia (12) COVID-19 virus infection (13) Renal failure (14) Sepsis (15) Staphylococcus epidermidis bacteremia (16) Anemia (17) Leukocytosis Review of Systems Review of Symptoms unable to provide given medical condition Physical Exam Physical Exam General appearance: alert, no distress, appears stated age Head: Normocephalic, without obvious abnormality, atraumatic Eyes: conjunctivae/corneas clear. PERRL, EOM's intact. Fundi benign Throat: Lips, mucosa, and tongue normal. Teeth and gums normal Neck: supple, symmetrical, trachea midline, no adenopathy, thyroid: not enlarged, symmetric, no tenderness/mass/nodules, no carotid bruit and no JVD Lungs: decreased to auscultation bilaterally Heart: regular rate and rhythm, S1, S2 normal, no murmur, click, rub or gallop Abdomen: soft, non-tender. Bowel sounds normal. No masses, no organomegaly Extremities: extremities normal, atraumatic, no cyanosis or edema Pulses: 2+ and symmetric Skin: Skin color, texture, turgor normal. No rashes or lesions sacral DTI Neurologic: Grossly normal Last 24 Hour Vital Signs Date Time Temp Pulse Resp B/P (MAP) Pulse Ox O2 Delivery O2 Flow Rate FiO2 01/03/20 14:47 142/109 01/03/20 14:47 142/109 01/03/20 12:00 78 01/03/20 12:00 98.1 83 18 142/109 (120) 99 01/03/20 09:00 Room Air 01/03/20 08:00 74 01/03/20 08:00 97.9 60 18 156/73 (100) 96 01/03/20 06:16 150/70 01/03/20 04:00 98.3 80 18 150/70 (96) 99 01/03/20 04:00 77 01/03/20 00:06 97.9 76 20 142/86 (104) 96 01/03/20 00:00 75 01/02/20 22:00 144/73 01/02/20 21:00 Room Air 01/02/20 20:00 72 01/02/20 20:00 98.0 75 20 144/73 (96) 95 01/02/20 16:00 74 01/02/20 16:00 98.1 77 20 140/60 (86) 97 Intake and Output 01/02/20 01/03/20 19:00 07:00 Output Total 450 ml 700 ml Balance -450 ml -700 ml Output Urine Total 450 ml 700 ml Laboratory Tests Test 01/03/20 08:35 White Blood Count 17.7 K/UL (4.8-10.8) H Red Blood Count 3.19 M/UL (4.20-5.40) L Hemoglobin 10.2 G/DL (12.0-16.0) L Hematocrit 31.7 % (37.0-47.0) L Mean Corpuscular Volume 99 FL (80-99) # Mean Corpuscular Hemoglobin 31.9 PG (27.0-31.0) H Mean Corpuscular Hemoglobin Concent 32.1 G/DL (32.0-36.0) Red Cell Distribution Width 14.2 % (11.6-14.8) Platelet Count 577 K/UL (150-450) H Mean Platelet Volume 6.8 FL (6.5-10.1) Neutrophils (%) (Auto) 80.4 % (45.0-75.0) H Lymphocytes (%) (Auto) 10.5 % (20.0-45.0) L Monocytes (%) (Auto) 7.8 % (1.0-10.0) Eosinophils (%) (Auto) 0.3 % (0.0-3.0) Basophils (%) (Auto) 1.0 % (0.0-2.0) Prothrombin Time 10.8 SEC (9.30-11.50) Prothromb Time International Ratio 1.0 (0.9-1.1) Sodium Level 136 MMOL/L (136-145) Potassium Level 3.8 MMOL/L (3.5-5.1) Chloride Level 101 MMOL/L (98-107) Carbon Dioxide Level 30 MMOL/L (21-32) Anion Gap 5 mmol/L (5-15) Blood Urea Nitrogen 14 mg/dL (7-18) Creatinine 0.6 MG/DL (0.55-1.30) Estimat Glomerular Filtration Rate > 60 mL/min (>60) Glucose Level 108 MG/DL (74-106) H Uric Acid 2.2 MG/DL (2.6-7.2) L Calcium Level 8.6 MG/DL (8.5-10.1) Phosphorus Level 4.2 MG/DL (2.5-4.9) Magnesium Level 2.0 MG/DL (1.8-2.4) Ferritin 436 NG/ML (8-388) H Total Bilirubin 0.2 MG/DL (0.2-1.0) Direct Bilirubin 0.1 MG/DL (0.0-0.3) Gamma Glutamyl Transpeptidase 107 U/L (5-85) H Aspartate Amino Transf (AST/SGOT) 36 U/L (15-37) Alanine Aminotransferase (ALT/SGPT) 44 U/L (12-78) Alkaline Phosphatase 148 U/L (46-116) H Lactate Dehydrogenase 306 U/L (81-234) H Total Creatine Kinase 45 U/L (26-308) C-Reactive Protein, Quantitative 16.1 mg/dL (0.00-0.90) H Pro-B-Type Natriuretic Peptide 1222 pg/mL (0-125) H Total Protein 5.7 G/DL (6.4-8.2) L Albumin 1.4 G/DL (3.4-5.0) L Height (Feet): 5 Height (Inches): 0.00 Weight (Pounds): 153 Medications Current Medications Medications (Trade) Dose Ordered Sig/Ovi Route PRN Reason Start Time Stop Time Status Last Admin Dose Admin Acetaminophen (Tylenol) 650 mg Q4H PRN NG Temp >100.5 01/02/20 01:00 02/01/20 00:59 01/02/20 01:33 Aspirin (ASA) 81 mg DAILY NG 12/19/19 09:00 02/02/20 08:59 01/02/20 09:11 Atorvastatin Calcium (Lipitor) 20 mg BEDTIME ORAL 12/19/19 21:00 03/18/20 20:59 01/02/20 21:00 Captopril (Capoten) 6.25 mg EVERY 8 HOURS ORAL 12/30/19 14:00 01/24/20 20:59 01/03/20 14:47 Folic Acid (Folate) 2 mg DAILY NG 12/30/19 12:00 01/29/20 11:59 01/03/20 09:20 Heparin Sodium (Porcine) (Heparin 5000 units/ml) 5,000 units EVERY 12 HOURS SUBQ 12/19/19 21:00 02/02/20 20:59 01/02/20 21:00 Lansoprazole (Prevacid) 30 mg BID NG 12/29/19 18:00 01/28/20 17:59 01/03/20 09:20 Nitroglycerin (Ntg) 1 patch Q24H TDERMAL 12/19/19 14:00 01/14/20 13:59 01/03/20 14:47 Piperacillin Sod/ Tazobactam Sod 3.375 gm/Sodium Chloride 110 ml @ 27.5 mls/hr EVERY 8 HOURS IVPB 01/02/20 14:00 01/07/20 13:59 01/03/20 14:47 Valproic Acid (Depakene) 500 mg EVERY 12 HOURS NG 12/18/19 23:15 01/17/20 23:14 01/03/20 09:20 Assessment/Plan Problem List: (1) Leukocytosis Assessment & Plan: Acute leukocytosis. Microbiology identified staph E. On antibiotics per infectious disease. WBC trending down. Complete examination identified no external source of potential staph infection in the blood bacteremia DTI noted Continue antibiotics as per infectious disease Trend labs We will follow with recommendations ICD Codes: D72.829 - Elevated white blood cell count, unspecified SNOMED: 423608864, [id number] (2) Sepsis Assessment & Plan: Patient CO VID Pneumonia improving Recent acute leukocytosis trending down Course of hydroxy completed stable Improving Continue current care plan Abnormal LFTs identified Hold on abdominal ultrasound for now nutritional optimization turn q2h off load pressures cont tube feeds at goal DAILY ESTIMATED NEEDS: Needs based on ROSARIO, Cardiac/ 52kg 25-30 kcals/kg 5236-1563 total kcals 1-1.2 g protein/kg 52-62 g total protein 25-30 mL/kg 1304-6457 total fluid mLs NUTRITION DIAGNOSIS: Swallowing difficulty R/T dysphagia, AMS, lethargy as evidenced by NPO at this time, PHOTONICS ENGINEERING TECHNOLOGIST eval pending, FTT dx, s/p NGT feeding, now NPO, pending PEG placement. CURRENT TF:NPO ENTERAL NUTRITION RECOMMENDATIONS: Jevity 1.2 @ 50ml/hr x 24 hrs to provide 1200ml, 1440kcal, 66g prot, 968ml free water * S/p PEG placement, resume previous TF -> initiate @ 20ml/hr x 6 hrs, advance 10ml q 4-6 hrs as tolerated to goal rate * HOB over 30 degrees * Water flush of 150ml q 8 hrs --- W/ consistently elev BGs, rec Glucerna 1.5 (Glucerna 1.2 is out of stock) @ goal rate of 40ml/hr x 24 hrs to provide 960ml, 1440kcal, 79g prot, 729ml free water. ADDITIONAL RECOMMENDATIONS: * Calibrated bedscale wt for accurate CBW- discrepancy wt in EMR noted per SNF record: HT=60", TK=051.4lbs (December 2019) * Monitor for possible PEG placement- schedule for 01/02 * Monitor BGs, need for carb controlled TF * Monitor lytes, replete as needed ICD Codes: A41.9 - Sepsis, unspecified organism SNOMED: 60474634 (3) Staphylococcus epidermidis bacteremia Assessment & Plan: As above ICD Codes: R78.81 - Bacteremia; B95.7 - Other staphylococcus as the cause of diseases classified elsewhere SNOMED: [id number] Andi Valera January 03, 2020 15:51
[2020-01-03 16:00] VITALS: BP 133/67
--- NOTE | 2020-01-03 17:47 | Cardiology Progress Note ---
Assessment/Plan Assessment/Plan 1. Yrp-GW-erhmcpalp myocardial infarction,related to demand vs from covid induced myonecrosis , doubt plaque rupture or cytokine storm 2. Acute renal failure in the setting of volume depletion. 3. Hypernatremia secondary to volume depletion. 4. 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 5. Dementia. 6. Lactic acidosis. 7. History of bradycardia secondary to medications. 8. bacteremia no fever covid status now neg on 2 check on sq heparin for dvt ppx echo prelim noted no sig abn on tele now sinus no afib or pauses on ecotrin and statin on feeding tolerating per staff await peg when wbc better hemodynamically stable for the moment saturatign at 99% room air Subjective Subjective per rn RN. Patient in bed resting, no active s/s cardiac, respiratory distress noticed at this time. Patient AOx0-1, awake, scream, SR, Objective Last 24 Hour Vital Signs Date Time Temp Pulse Resp B/P (MAP) Pulse Ox O2 Delivery O2 Flow Rate FiO2 01/03/20 16:00 98.1 79 18 133/67 (89) 99 01/03/20 16:00 71 01/03/20 14:47 142/109 01/03/20 14:47 142/109 01/03/20 12:00 78 01/03/20 12:00 98.1 83 18 142/109 (120) 99 01/03/20 09:00 Room Air 01/03/20 08:00 74 01/03/20 08:00 97.9 60 18 156/73 (100) 96 01/03/20 06:16 150/70 01/03/20 04:00 98.3 80 18 150/70 (96) 99 01/03/20 04:00 77 01/03/20 00:06 97.9 76 20 142/86 (104) 96 01/03/20 00:00 75 01/02/20 22:00 144/73 01/02/20 21:00 Room Air 01/02/20 20:00 72 01/02/20 20:00 98.0 75 20 144/73 (96) 95 General Appearance: isolation precautions, other - not examined Intake and Output 01/02/20 01/03/20 19:00 07:00 Output Total 450 ml 700 ml Balance -450 ml -700 ml Output Urine Total 450 ml 700 ml Laboratory Tests Test 01/03/20 08:35 White Blood Count 17.7 K/UL (4.8-10.8) H Red Blood Count 3.19 M/UL (4.20-5.40) L Hemoglobin 10.2 G/DL (12.0-16.0) L Hematocrit 31.7 % (37.0-47.0) L Mean Corpuscular Volume 99 FL (80-99) # Mean Corpuscular Hemoglobin 31.9 PG (27.0-31.0) H Mean Corpuscular Hemoglobin Concent 32.1 G/DL (32.0-36.0) Red Cell Distribution Width 14.2 % (11.6-14.8) Platelet Count 577 K/UL (150-450) H Mean Platelet Volume 6.8 FL (6.5-10.1) Neutrophils (%) (Auto) 80.4 % (45.0-75.0) H Lymphocytes (%) (Auto) 10.5 % (20.0-45.0) L Monocytes (%) (Auto) 7.8 % (1.0-10.0) Eosinophils (%) (Auto) 0.3 % (0.0-3.0) Basophils (%) (Auto) 1.0 % (0.0-2.0) Prothrombin Time 10.8 SEC (9.30-11.50) Prothromb Time International Ratio 1.0 (0.9-1.1) Sodium Level 136 MMOL/L (136-145) Potassium Level 3.8 MMOL/L (3.5-5.1) Chloride Level 101 MMOL/L (98-107) Carbon Dioxide Level 30 MMOL/L (21-32) Anion Gap 5 mmol/L (5-15) Blood Urea Nitrogen 14 mg/dL (7-18) Creatinine 0.6 MG/DL (0.55-1.30) Estimat Glomerular Filtration Rate > 60 mL/min (>60) Glucose Level 108 MG/DL (74-106) H Uric Acid 2.2 MG/DL (2.6-7.2) L Calcium Level 8.6 MG/DL (8.5-10.1) Phosphorus Level 4.2 MG/DL (2.5-4.9) Magnesium Level 2.0 MG/DL (1.8-2.4) Ferritin 436 NG/ML (8-388) H Total Bilirubin 0.2 MG/DL (0.2-1.0) Direct Bilirubin 0.1 MG/DL (0.0-0.3) Gamma Glutamyl Transpeptidase 107 U/L (5-85) H Aspartate Amino Transf (AST/SGOT) 36 U/L (15-37) Alanine Aminotransferase (ALT/SGPT) 44 U/L (12-78) Alkaline Phosphatase 148 U/L (46-116) H Lactate Dehydrogenase 306 U/L (81-234) H Total Creatine Kinase 45 U/L (26-308) C-Reactive Protein, Quantitative 16.1 mg/dL (0.00-0.90) H Pro-B-Type Natriuretic Peptide 1222 pg/mL (0-125) H Total Protein 5.7 G/DL (6.4-8.2) L Albumin 1.4 G/DL (3.4-5.0) L Microbiology Date/Time Source Procedure Growth Status 01/02/20 01:00 Blood Blood Culture - Preliminary NO GROWTH AFTER 24 HOURS Resulted 01/01/20 22:19 Indwelling Cath Urine Culture - Preliminary Gram Negative Bacillus 1 Resulted Kendell Rosen MD January 03, 2020 17:47
[2020-01-03 20:00] VITALS: BP 139/80
--- NOTE | 2020-01-03 21:02 | Infectious Diseases Prog Note ---
Assessment/Plan Problems: (1) Leukocytosis Assessment & Plan: rule out infectious etiology and sepsis due to UTI , continue zosyn empirically to cover for urosepsis pending repeated Blood culture x 2 and final urine culture , CXR no acute infiltrates or effusion , stop vancomycin since completed her course of treatment for two weeks for bacteremia due to staph spp (2) Catheter-associated urinary tract infection Assessment & Plan: with gram negative rods , already on zosyn pending urine culture , ramos was changed on 12/29 as per the nurse (3) Sepsis Assessment & Plan: with Staphylococcus epidermidis grew out of four bottles from both sets, source ? continue vancomycin for two weeks total , repeated blood culture grew the same organism but from one bottle only most likely contaminants. EOT 01/02/20 (4) COVID-19 virus infection Assessment & Plan: keep in enhanced droplet isolation, S/P hydroxychloroquin with zinc and vitamin C for five days total.repeated PCR test times two so far is negative. (5) Viral pneumonia Assessment & Plan: due to COVID 19, S/P hydroxychloroquine , with zinc and vitamin C for five days, Repeated PCR test is negative (6) ROSARIO (acute kidney injury) Assessment & Plan: suspect due to dehydration and poor oral intake improving monitor renal function avoid nephrotoxic's (7) NSTEMI (non-ST elevated myocardial infarction) Assessment & Plan: could be due to COVID 19, cardiology is following monitor troponin level Subjective ROS Limited/Unobtainable: Yes Allergies: Coded Allergies: MEMANTINE (Unverified Allergy, Unknown, 12/15/19) SERTRALINE (Unverified Allergy, Unknown, 12/15/19) Subjective she was laying in bed, comfortable, not responsive to verbal commands but to touch only , has no fever today, no cough or SOB, still confused , receiving meds though NGT , no agitation , no diarrhea Objective Vital Signs Last 24 Hour Vital Signs Date Time Temp Pulse Resp B/P (MAP) Pulse Ox O2 Delivery O2 Flow Rate FiO2 01/03/20 16:00 98.1 79 18 133/67 (89) 99 01/03/20 16:00 71 01/03/20 14:47 142/109 01/03/20 14:47 142/109 01/03/20 12:00 78 01/03/20 12:00 98.1 83 18 142/109 (120) 99 01/03/20 09:00 Room Air 01/03/20 08:00 74 01/03/20 08:00 97.9 60 18 156/73 (100) 96 01/03/20 06:16 150/70 01/03/20 04:00 98.3 80 18 150/70 (96) 99 01/03/20 04:00 77 01/03/20 00:06 97.9 76 20 142/86 (104) 96 01/03/20 00:00 75 01/02/20 22:00 144/73 Height (Feet): 5 Height (Inches): 0.00 Weight (Pounds): 153 General Appearance: WD/WN, no acute distress HEENT: normocephalic, atraumatic, anicteric, mucous membranes moist, PERRL Respiratory/Chest: chest wall non-tender, lungs clear, no respiratory distress , no accessory muscle use Cardiovascular: normal peripheral pulses, normal rate, regular rhythm, no gallop/murmur, no JVD Abdomen: normal bowel sounds, soft, non tender, no organomegaly, non distended , no mass, no scars Genitourinary: normal external genitalia Extremities: no cyanosis, no clubbing Skin: no rash, no lesions 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: alert, unresponsiveness Lymphatic: no neck adenopathy, no groin adenopathy Microbiology Date/Time Source Procedure Growth Status 01/02/20 01:00 Blood Blood Culture - Preliminary NO GROWTH AFTER 24 HOURS Resulted 01/01/20 22:19 Indwelling Cath Urine Culture - Preliminary Gram Negative Bacillus 1 Resulted Laboratory Tests Test 01/03/20 08:35 White Blood Count 17.7 K/UL (4.8-10.8) H Red Blood Count 3.19 M/UL (4.20-5.40) L Hemoglobin 10.2 G/DL (12.0-16.0) L Hematocrit 31.7 % (37.0-47.0) L Mean Corpuscular Volume 99 FL (80-99) # Mean Corpuscular Hemoglobin 31.9 PG (27.0-31.0) H Mean Corpuscular Hemoglobin Concent 32.1 G/DL (32.0-36.0) Red Cell Distribution Width 14.2 % (11.6-14.8) Platelet Count 577 K/UL (150-450) H Mean Platelet Volume 6.8 FL (6.5-10.1) Neutrophils (%) (Auto) 80.4 % (45.0-75.0) H Lymphocytes (%) (Auto) 10.5 % (20.0-45.0) L Monocytes (%) (Auto) 7.8 % (1.0-10.0) Eosinophils (%) (Auto) 0.3 % (0.0-3.0) Basophils (%) (Auto) 1.0 % (0.0-2.0) Prothrombin Time 10.8 SEC (9.30-11.50) Prothromb Time International Ratio 1.0 (0.9-1.1) Sodium Level 136 MMOL/L (136-145) Potassium Level 3.8 MMOL/L (3.5-5.1) Chloride Level 101 MMOL/L (98-107) Carbon Dioxide Level 30 MMOL/L (21-32) Anion Gap 5 mmol/L (5-15) Blood Urea Nitrogen 14 mg/dL (7-18) Creatinine 0.6 MG/DL (0.55-1.30) Estimat Glomerular Filtration Rate > 60 mL/min (>60) Glucose Level 108 MG/DL (74-106) H Uric Acid 2.2 MG/DL (2.6-7.2) L Calcium Level 8.6 MG/DL (8.5-10.1) Phosphorus Level 4.2 MG/DL (2.5-4.9) Magnesium Level 2.0 MG/DL (1.8-2.4) Ferritin 436 NG/ML (8-388) H Total Bilirubin 0.2 MG/DL (0.2-1.0) Direct Bilirubin 0.1 MG/DL (0.0-0.3) Gamma Glutamyl Transpeptidase 107 U/L (5-85) H Aspartate Amino Transf (AST/SGOT) 36 U/L (15-37) Alanine Aminotransferase (ALT/SGPT) 44 U/L (12-78) Alkaline Phosphatase 148 U/L (46-116) H Lactate Dehydrogenase 306 U/L (81-234) H Total Creatine Kinase 45 U/L (26-308) C-Reactive Protein, Quantitative 16.1 mg/dL (0.00-0.90) H Pro-B-Type Natriuretic Peptide 1222 pg/mL (0-125) H Total Protein 5.7 G/DL (6.4-8.2) L Albumin 1.4 G/DL (3.4-5.0) L Current Medications Medications (Trade) Dose Ordered Sig/Ovi Route PRN Reason Start Time Stop Time Status Last Admin Dose Admin Acetaminophen (Tylenol) 650 mg Q4H PRN NG Temp >100.5 01/02/20 01:00 02/01/20 00:59 01/02/20 01:33 Aspirin (ASA) 81 mg DAILY NG 12/19/19 09:00 02/02/20 08:59 01/02/20 09:11 Atorvastatin Calcium (Lipitor) 20 mg BEDTIME ORAL 12/19/19 21:00 03/18/20 20:59 01/02/20 21:00 Captopril (Capoten) 6.25 mg EVERY 8 HOURS ORAL 12/30/19 14:00 01/24/20 20:59 01/03/20 14:47 Folic Acid (Folate) 2 mg DAILY NG 12/30/19 12:00 01/29/20 11:59 01/03/20 09:20 Heparin Sodium (Porcine) (Heparin 5000 units/ml) 5,000 units EVERY 12 HOURS SUBQ 12/19/19 21:00 02/02/20 20:59 01/02/20 21:00 Lansoprazole (Prevacid) 30 mg BID NG 12/29/19 18:00 01/28/20 17:59 01/03/20 17:35 Nitroglycerin (Ntg) 1 patch Q24H TDERMAL 12/19/19 14:00 01/14/20 13:59 01/03/20 14:47 Piperacillin Sod/ Tazobactam Sod 3.375 gm/Sodium Chloride 110 ml @ 27.5 mls/hr EVERY 8 HOURS IVPB 01/02/20 14:00 01/07/20 13:59 01/03/20 14:47 Valproic Acid (Depakene) 500 mg EVERY 12 HOURS NG 12/18/19 23:15 01/17/20 23:14 01/03/20 09:20 Sukhjinder Howell M.D. January 03, 2020 21:02
[2020-01-03] MEDS: Atorvastatin 20mg tab ORAL SCH (22:13)
[2020-01-04] VITALS: BP 135/83
[2020-01-04 04:00] VITALS: BP 140/77
[2020-01-04] MEDS: Piperacillin/Tazobactam 3.375 GM in NS 110 ML IVPB SCH ×2 (05:04→14:45)
[2020-01-04] MEDS: Captopril 12.5mg tab ORAL SCH ×3 (05:27→21:31)
[2020-01-04 06:57] LABS: EOSINOPHILS % (AUTO) 0.7 % (0.0-3.0); HEMATOCRIT 27.5 % (37.0-47.0); HEMOGLOBIN 9.4 G/DL (12.0-16.0); LYMPHOCYTES % (AUTO) 17.6 % (20.0-45.0); MEAN CORPUSCULAR VOLUME 93 FL (80-99); NEUTROPHILS % (AUTO) 69.8 % (45.0-75.0); PLATELET COUNT 615 K/UL (150-450); RED BLOOD COUNT 2.96 M/UL (4.20-5.40); RED CELL DISTRIBUTION WIDTH 12.8 % (11.6-14.8); WHITE BLOOD COUNT 12.3 K/UL (4.8-10.8)
[2020-01-04 07:33] LABS: ANION GAP 3 mmol/L (5-15); BLOOD UREA NITROGEN 15 mg/dL (7-18); CALCIUM 8.3 MG/DL (8.5-10.1); CARBON DIOXIDE 33 MMOL/L (21-32); CHLORIDE 103 MMOL/L (98-107); CREATININE 0.7 MG/DL (0.55-1.30); POTASSIUM 3.6 MMOL/L (3.5-5.1); SODIUM 139 MMOL/L (136-145)
[2020-01-04 08:00] VITALS: BP 131/60
--- NOTE | 2020-01-04 08:20 | Pulmonology Progress Note ---
Marge Gutierrez VEHICLE DYNAMICS ENGINEER 01/04/20 0820: Assessment/Plan Assessment/Plan PROBLEMS Confirmed COVID-19 virus infection Viral pneumonia Electrolyte imbalance NSTEMI (non-ST elevated myocardial infarction) Encephalopathy Dehydration ROSARIO (acute kidney injury) Staphylococcus epidermidis bacteremia Anemia Assessment/Plan Confirmed CoVID 19 infection Acute hypoxemic respiratory failure-resolved S epidermis bacteremia New leukocytosis with fevers, Proteus UTI Acute renal failure - RESOLVED Severe dehydration - IMPROVED Hypernatremia indicative of free water depletion Hypercalcemia likely due to dehydration Elevated hemoglobin likely secondary to hemoconcentration, now anemia Elevated troponin/NSTEMI Poor p.o. intake / failure to thrive Dementia Hypertension Generalized anxiety disorder Dysphagia Anemia of chronic disease Folate deficiency Plan: * COVID-19 isolation status, confirmed 12/14, * repeat COVID 12/21- and 12/24 NGT -> off isolation * on tele now * monitor oxygenation closely, on RA or only on 1-2L nasal cannula * CXR prn only if worsening symptoms, CXR 12/16 clear lungs * fup CXR 12/25 done , given mild leukocytosis -no acute findings * CRP 11.6 ( down from the highest 23.5) * worsening leukocytosis, fevers, recultured 12/31, fup with cx: UA + pyuria, UCX- GNB ; BCX -NGTD * CXR 01/01 No focal consolidative process or pleural effusions, not likely PNA, leuk probably due to UTI * also check stool C dif * Vanco per ID, need 2 wks for Staph epidermidis ( repeated BCX 12/20 still + with Staph epidermidis 09/02) * discussed with ID Dr Howell - Tin added for GN coverage 01/01 * UCX + Proteus, probably can deescalate treatment - per ID consideration * Completed 5 days of Plaquenil * s/p IVF , nephro on board * Monitor electrolytes and renal parameters * TTE per cardio * on a/PLT therapy with ASA, statin , [facility] for afterload reduction * NPO, NGTF's, MOLD UNLOADER eval , , strict aspiration precautions, unable to participate in swallow eval * will need either G tube or palliative care * Cont Depakote 500 mg bid from SNF * DVT ppx: heparin SQ * Anemia w/up c/w ACD and folate deficiency, started on folate replacement * stool OB negative * monitor HH with goal to keep Hgb above 7 * Full Code per prior documented ECP notes * Dr Toledo spoke with daughter Dayna Milton 12/27 ([phone]) and discussed further goals of care, she will need to discuss with other family members and will get back to us: either PEG placement or palliative care * awaiting for family decision, daughter decided to continue Full code and wants G tube * GI on board now, * PEG cancelled due to leukocytosis and isolation * ? dc isolation given two negative SARS-CoV-2 - per ID recommendations Prophylaxis: Heparin SQ Disposition: downgraded to tele Time Spent (Minutes): 35 Notes Reviewed: cardio, renal, ID Discussed with: nurses, consultants case discussed and evaluated by supervising physician Subjective ROS Limited/Unobtainable: Yes Interval Events: Allergies: Coded Allergies: MEMANTINE (Unverified Allergy, Unknown, 12/15/19) SERTRALINE (Unverified Allergy, Unknown, 12/15/19) Subjective no fevers since 01/01, leukocytosis trending down pulse ox stable on RA SARS- CoV -2 by PCR 12/21 and 12/24 not detected PEG planned for 01/02 cancelled due to leukocytosis and isolation Objective Last 24 Hour Vital Signs Date Time Temp Pulse Resp B/P (MAP) Pulse Ox O2 Delivery O2 Flow Rate FiO2 01/04/20 05:27 140/77 01/04/20 04:00 Room Air 01/04/20 04:00 75 01/04/20 00:00 98.2 88 18 135/83 (100) 98 01/04/20 00:00 70 01/04/20 00:00 Room Air 01/03/20 22:12 139/80 01/03/20 21:00 Room Air 01/03/20 21:00 78 01/03/20 20:00 98.4 85 18 139/80 (99) 99 01/03/20 16:00 98.1 79 18 133/67 (89) 99 01/03/20 16:00 71 01/03/20 14:47 142/109 01/03/20 14:47 142/109 01/03/20 12:00 78 01/03/20 12:00 98.1 83 18 142/109 (120) 99 01/03/20 09:00 Room Air Intake and Output 01/03/20 01/04/20 19:00 07:00 Output Total 450 ml 500 ml Balance -450 ml -500 ml Output Urine Total 450 ml 500 ml # Voids 1 1 Objective General Appearance: WD/WN, in no acute distress elderly AA female HEENT: normocephalic, atraumatic, anicteric, mucous membranes moist, PERRL, NGT Respiratory/Chest: few scattered rhonchi Cardiovascular: normal peripheral pulses, normal rate, regular rhythm, SR on tele Abdomen: normal bowel sounds, soft, non tender, non distended, no mass, no scars Genitourinary: normal external genitalia Extremities: no cyanosis, no clubbing Skin: no rash, no lesions, no ulcers 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: library media specialist II-XII grossly normal, open eyes spontaneously but very poorly responsive Lymphatic: no neck adenopathy, no groin adenopathy Musculoskeletal: muscle atrophy, no effusion 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: unresponsiveness Microbiology Date/Time Source Procedure Growth Status 01/02/20 07:00 Blood Blood Culture - Preliminary NO GROWTH AFTER 24 HOURS Resulted 01/02/20 01:00 Blood Blood Culture - Preliminary NO GROWTH AFTER 48 HOURS Resulted 01/01/20 22:19 Indwelling Cath Urine Culture - Final Proteus Mirabilis Complete Laboratory Tests 01/03/20 08:35: White Blood Count 17.7H, Red Blood Count 3.19L, Hemoglobin 10.2L, Hematocrit 31.7L, Mean Corpuscular Volume 99#, Mean Corpuscular Hemoglobin 31.9H, Mean Corpuscular Hemoglobin Concent 32.1, Red Cell Distribution Width 14.2, Platelet Count 577H, Mean Platelet Volume 6.8, Neutrophils (%) (Auto) 80.4H, Lymphocytes (%) (Auto) 10.5L, Monocytes (%) (Auto) 7.8, Eosinophils (%) (Auto) 0.3, Basophils (%) (Auto) 1.0, Prothrombin Time 10.8, Prothromb Time International Ratio 1.0, Sodium Level 136, Potassium Level 3.8, Chloride Level 101, Carbon Dioxide Level 30, Anion Gap 5, Blood Urea Nitrogen 14, Creatinine 0.6, Estimat Glomerular Filtration Rate > 60, Glucose Level 108H, Uric Acid 2.2L, Calcium Level 8.6, Phosphorus Level 4.2, Magnesium Level 2.0, Ferritin 436H, Total Bilirubin 0.2, Direct Bilirubin 0.1, Gamma Glutamyl Transpeptidase 107H, Aspartate Amino Transf (AST/SGOT) 36, Alanine Aminotransferase (ALT/SGPT) 44, Alkaline Phosphatase 148H, Lactate Dehydrogenase 306H, Total Creatine Kinase 45 , C-Reactive Protein, Quantitative 16.1H, Pro-B-Type Natriuretic Peptide 1222H, Total Protein 5.7L, Albumin 1.4L 01/04/20 06:29: White Blood Count 12.3H, Red Blood Count 2.96L, Hemoglobin 9.4L, Hematocrit 27.5L, Mean Corpuscular Volume 93, Mean Corpuscular Hemoglobin 31.8H, Mean Corpuscular Hemoglobin Concent 34.2, Red Cell Distribution Width 12.8, Platelet Count 615H, Mean Platelet Volume 5.9L, Neutrophils (%) (Auto) 69.8, Lymphocytes (%) (Auto) 17.6L, Monocytes (%) (Auto) 11.0H, Eosinophils (%) (Auto) 0.7, Basophils (%) (Auto) 1.0, Sodium Level 139, Potassium Level 3.6, Chloride Level 103, Carbon Dioxide Level 33H, Anion Gap 3L, Blood Urea Nitrogen 15, Creatinine 0.7, Estimat Glomerular Filtration Rate > 60, Glucose Level 135H, Calcium Level 8.3L Current Medications Medications (Trade) Dose Ordered Sig/Ovi Route PRN Reason Start Time Stop Time Status Last Admin Dose Admin Acetaminophen (Tylenol) 650 mg Q4H PRN NG Temp >100.5 01/02/20 01:00 02/01/20 00:59 01/02/20 01:33 Aspirin (ASA) 81 mg DAILY NG 12/19/19 09:00 02/02/20 08:59 01/02/20 09:11 Atorvastatin Calcium (Lipitor) 20 mg BEDTIME ORAL 12/19/19 21:00 03/18/20 20:59 01/03/20 22:13 Captopril (Capoten) 6.25 mg EVERY 8 HOURS ORAL 12/30/19 14:00 01/24/20 20:59 01/04/20 05:27 Folic Acid (Folate) 2 mg DAILY NG 12/30/19 12:00 01/29/20 11:59 01/03/20 09:20 Heparin Sodium (Porcine) (Heparin 5000 units/ml) 5,000 units EVERY 12 HOURS SUBQ 12/19/19 21:00 02/02/20 20:59 01/03/20 22:15 Lansoprazole (Prevacid) 30 mg BID NG 12/29/19 18:00 01/28/20 17:59 01/03/20 17:35 Nitroglycerin (Ntg) 1 patch Q24H TDERMAL 12/19/19 14:00 01/14/20 13:59 01/03/20 14:47 Piperacillin Sod/ Tazobactam Sod 3.375 gm/Sodium Chloride 110 ml @ 27.5 mls/hr EVERY 8 HOURS IVPB 01/02/20 14:00 01/07/20 13:59 01/04/20 05:04 Valproic Acid (Depakene) 500 mg EVERY 12 HOURS NG 12/18/19 23:15 01/17/20 23:14 01/03/20 22:06 Boby Toledo MD 01/04/20 1205: Assessment/Plan Assessment/Plan Patient seen and examined with VEHICLE DYNAMICS ENGINEER, agree with A&P above as it reflects our joint deliberations. Subjective Allergies: Coded Allergies: MEMANTINE (Unverified Allergy, Unknown, 12/15/19) SERTRALINE (Unverified Allergy, Unknown, 12/15/19) Marge Gutierrez NP January 04, 2020 08:20 Boby Toledo MD January 04, 2020 12:05
[2020-01-04] MEDS ORDERED: fentaNYL 100 mcg/2 mL IV ONE (09:30)
--- NOTE | 2020-01-04 10:12 | General Progress Note ---
Assessment/Plan Status: stable, unchanged Assessment/Plan: 1. The patient is an 89-year-old female with current medical problem as COVID positive pneumonia resolving. 2. Diabetes. 3. Anemia. 4. Abnormal liver function tests. 5. Sepsis. 6. Dysphagia. 7. Non-ST elevation myocardial infarction. 8. Dementia. 9. Encephalopathy. 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 d/w ID patient now stable for PEG plan for tomorrow Subjective ROS Limited/Unobtainable: No Allergies: Coded Allergies: MEMANTINE (Unverified Allergy, Unknown, 12/15/19) SERTRALINE (Unverified Allergy, Unknown, 12/15/19) Objective Last 24 Hour Vital Signs Date Time Temp Pulse Resp B/P (MAP) Pulse Ox O2 Delivery O2 Flow Rate FiO2 01/04/20 05:27 140/77 01/04/20 04:00 Room Air 01/04/20 04:00 98.4 82 19 140/77 (98) 98 01/04/20 04:00 75 01/04/20 00:00 98.2 88 18 135/83 (100) 98 01/04/20 00:00 70 01/04/20 00:00 Room Air 01/03/20 22:12 139/80 01/03/20 21:00 Room Air 01/03/20 21:00 78 01/03/20 20:00 98.4 85 18 139/80 (99) 99 01/03/20 16:00 98.1 79 18 133/67 (89) 99 01/03/20 16:00 71 01/03/20 14:47 142/109 01/03/20 14:47 142/109 01/03/20 12:00 78 01/03/20 12:00 98.1 83 18 142/109 (120) 99 Intake and Output 01/03/20 01/04/20 19:00 07:00 Intake Total 800 ml Output Total 450 ml 1000 ml Balance -450 ml -200 ml Intake Free Water 200 ml Tube Feeding 600 ml Output Urine Total 450 ml 1000 ml # Voids 1 1 Laboratory Tests 01/04/20 06:29: White Blood Count 12.3H, Red Blood Count 2.96L, Hemoglobin 9.4L, Hematocrit 27.5L, Mean Corpuscular Volume 93, Mean Corpuscular Hemoglobin 31.8H, Mean Corpuscular Hemoglobin Concent 34.2, Red Cell Distribution Width 12.8, Platelet Count 615H, Mean Platelet Volume 5.9L, Neutrophils (%) (Auto) 69.8, Lymphocytes (%) (Auto) 17.6L, Monocytes (%) (Auto) 11.0H, Eosinophils (%) (Auto) 0.7, Basophils (%) (Auto) 1.0, Sodium Level 139, Potassium Level 3.6, Chloride Level 103, Carbon Dioxide Level 33H, Anion Gap 3L, Blood Urea Nitrogen 15, Creatinine 0.7, Estimat Glomerular Filtration Rate > 60, Glucose Level 135H, Calcium Level 8.3L Height (Feet): 5 Height (Inches): 0.00 Weight (Pounds): 153 General Appearance: no apparent distress EENT: normal ENT inspection Neck: supple Cardiovascular: normal rate Respiratory/Chest: decreased breath sounds Abdomen: normal bowel sounds, non tender, soft Extremities: non-tender Sven Villalta MD January 04, 2020 10:12
[2020-01-04] MEDS: Valproic Acid 250mg/5ml Liquid NG SCH ×2 (10:15→21:29)
[2020-01-04] MEDS: Aspirin Baby 81mg NG SCH (10:17)
[2020-01-04] MEDS: Heparin 5000 units/ml inj SUBQ SCH ×2 (10:17→21:00)
--- NOTE | 2020-01-04 11:06 | Cardiology Progress Note ---
Assessment/Plan Assessment/Plan 1. [id number] myocardial infarction,related to demand vs from covid induced myonecrosis , doubt plaque rupture or cytokine storm 2. Acute renal failure in the setting of volume depletion. 3. Hypernatremia secondary to volume depletion. 4. 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 5. Dementia. 6. Lactic acidosis. 7. History of bradycardia secondary to medications. 8. bacteremia no fever covid status now neg on 2 check on sq heparin for dvt ppx echo prelim noted no sig abn peg performed today wbc elelvated but stable Subjective Subjective pt. in bed awake, pt on guide dog mobility instructor no signs of cardiac or respiratory distress at this moment. Bed in lowest position and locked call light within reach. Bilateral arm swelling. Pt Nj tube feeding, there is an order for GTube. Bilateral heels protection. pt has ramos draining well. Will continue to monitor pt. Objective Last 24 Hour Vital Signs Date Time Temp Pulse Resp B/P (MAP) Pulse Ox O2 Delivery O2 Flow Rate FiO2 01/04/20 05:27 140/77 01/04/20 04:00 Room Air 01/04/20 04:00 98.4 82 19 140/77 (98) 98 01/04/20 04:00 75 01/04/20 00:00 98.2 88 18 135/83 (100) 98 01/04/20 00:00 70 01/04/20 00:00 Room Air 01/03/20 22:12 139/80 01/03/20 21:00 Room Air 01/03/20 21:00 78 01/03/20 20:00 98.4 85 18 139/80 (99) 99 01/03/20 16:00 98.1 79 18 133/67 (89) 99 01/03/20 16:00 71 01/03/20 14:47 142/109 01/03/20 14:47 142/109 01/03/20 12:00 78 01/03/20 12:00 98.1 83 18 142/109 (120) 99 General Appearance: no apparent distress, patient on isolation Intake and Output 01/03/20 01/04/20 19:00 07:00 Intake Total 800 ml Output Total 450 ml 1000 ml Balance -450 ml -200 ml Intake Free Water 200 ml Tube Feeding 600 ml Output Urine Total 450 ml 1000 ml # Voids 1 1 Laboratory Tests Test 01/04/20 06:29 White Blood Count 12.3 K/UL (4.8-10.8) H Red Blood Count 2.96 M/UL (4.20-5.40) L Hemoglobin 9.4 G/DL (12.0-16.0) L Hematocrit 27.5 % (37.0-47.0) L Mean Corpuscular Volume 93 FL (80-99) Mean Corpuscular Hemoglobin 31.8 PG (27.0-31.0) H Mean Corpuscular Hemoglobin Concent 34.2 G/DL (32.0-36.0) Red Cell Distribution Width 12.8 % (11.6-14.8) Platelet Count 615 K/UL (150-450) H Mean Platelet Volume 5.9 FL (6.5-10.1) L Neutrophils (%) (Auto) 69.8 % (45.0-75.0) Lymphocytes (%) (Auto) 17.6 % (20.0-45.0) L Monocytes (%) (Auto) 11.0 % (1.0-10.0) H Eosinophils (%) (Auto) 0.7 % (0.0-3.0) Basophils (%) (Auto) 1.0 % (0.0-2.0) Sodium Level 139 MMOL/L (136-145) Potassium Level 3.6 MMOL/L (3.5-5.1) Chloride Level 103 MMOL/L (98-107) Carbon Dioxide Level 33 MMOL/L (21-32) H Anion Gap 3 mmol/L (5-15) L Blood Urea Nitrogen 15 mg/dL (7-18) Creatinine 0.7 MG/DL (0.55-1.30) Estimat Glomerular Filtration Rate > 60 mL/min (>60) Glucose Level 135 MG/DL (74-106) H Calcium Level 8.3 MG/DL (8.5-10.1) L Microbiology Date/Time Source Procedure Growth Status 01/02/20 07:00 Blood Blood Culture - Preliminary NO GROWTH AFTER 24 HOURS Resulted 01/02/20 01:00 Blood Blood Culture - Preliminary NO GROWTH AFTER 48 HOURS Resulted 01/01/20 22:19 Indwelling Cath Urine Culture - Final Proteus Mirabilis Complete Kendell Rosen MD January 04, 2020 11:06
[2020-01-04 12:00] VITALS: BP 152/78
--- NOTE | 2020-01-04 14:11 | Nephrology Progress Note ---
Assessment/Plan Problem List: (1) ROSARIO (acute kidney injury) (2) Dehydration (3) Electrolyte imbalance (4) NSTEMI (non-ST elevated myocardial infarction) (5) COVID-19 virus infection (6) Anemia Assessment Acute renal failure Severe dehydration Hypernatremia indicative of free water depletion Hypercalcemia likely due to dehydration Elevated hemoglobin likely secondary to hemoconcentration Elevated troponin Poor p.o. intake / failure to thrive Dementia Hypertension Exposure to COVID-19 Plan Covid19 test positive WBCs carlene to over 24,000 but today is 17,000 Is being scheduled for PEG insertion Stable from renal standpoint to view Continue per ID advice Previously: Discontinue potassium chloride p.o. IV Protonix to Prevacid via NG tube At the folic acid to medication Watch declining hemoglobin Aspirin 2D echocardiogram, results still pending Nitropaste Avoid nephrotoxic's Monitor renal parameters Monitor hemoglobin hematocrit Avoid mind altering medication in view of severe lethargy Per orders Subjective ROS Limited/Unobtainable: No Constitutional: Reports: malaise, weakness Objective Objective Last 24 Hour Vital Signs Date Time Temp Pulse Resp B/P (MAP) Pulse Ox O2 Delivery O2 Flow Rate FiO2 01/04/20 05:27 140/77 01/04/20 04:00 Room Air 01/04/20 04:00 98.4 82 19 140/77 (98) 98 01/04/20 04:00 75 01/04/20 00:00 98.2 88 18 135/83 (100) 98 01/04/20 00:00 70 01/04/20 00:00 Room Air 01/03/20 22:12 139/80 01/03/20 21:00 Room Air 01/03/20 21:00 78 01/03/20 20:00 98.4 85 18 139/80 (99) 99 01/03/20 16:00 98.1 79 18 133/67 (89) 99 01/03/20 16:00 71 01/03/20 14:47 142/109 01/03/20 14:47 142/109 Intake and Output 01/03/20 01/04/20 19:00 07:00 Intake Total 800 ml Output Total 450 ml 1000 ml Balance -450 ml -200 ml Intake Free Water 200 ml Tube Feeding 600 ml Output Urine Total 450 ml 1000 ml # Voids 1 1 Laboratory Tests 01/04/20 06:29: White Blood Count 12.3H, Red Blood Count 2.96L, Hemoglobin 9.4L, Hematocrit 27.5L, Mean Corpuscular Volume 93, Mean Corpuscular Hemoglobin 31.8H, Mean Corpuscular Hemoglobin Concent 34.2, Red Cell Distribution Width 12.8, Platelet Count 615H, Mean Platelet Volume 5.9L, Neutrophils (%) (Auto) 69.8, Lymphocytes (%) (Auto) 17.6L, Monocytes (%) (Auto) 11.0H, Eosinophils (%) (Auto) 0.7, Basophils (%) (Auto) 1.0, Sodium Level 139, Potassium Level 3.6, Chloride Level 103, Carbon Dioxide Level 33H, Anion Gap 3L, Blood Urea Nitrogen 15, Creatinine 0.7, Estimat Glomerular Filtration Rate > 60, Glucose Level 135H, Calcium Level 8.3L Height (Feet): 5 Height (Inches): 0.00 Weight (Pounds): 153 General Appearance: no apparent distress Respiratory/Chest: decreased breath sounds Abdomen: soft Objective No change Robert Foreman MD January 04, 2020 14:11
[2020-01-04] MEDS: Nitroglycerin Patch 0.4mg TDERMAL SCH (14:55)
--- NOTE | 2020-01-04 15:58 | Surgery Progress Note ---
Surgery Progress Note Subjective Additional Comments no acute events tolerating tube feeds no n/v/f/ c Objective Last 24 Hour Vital Signs Date Time Temp Pulse Resp B/P (MAP) Pulse Ox O2 Delivery O2 Flow Rate FiO2 01/04/20 14:55 152/78 01/04/20 14:54 152/78 01/04/20 05:27 140/77 01/04/20 04:00 Room Air 01/04/20 04:00 98.4 82 19 140/77 (98) 98 01/04/20 04:00 75 01/04/20 00:00 98.2 88 18 135/83 (100) 98 01/04/20 00:00 70 01/04/20 00:00 Room Air 01/03/20 22:12 139/80 01/03/20 21:00 Room Air 01/03/20 21:00 78 01/03/20 20:00 98.4 85 18 139/80 (99) 99 01/03/20 16:00 98.1 79 18 133/67 (89) 99 01/03/20 16:00 71 I&O Intake and Output 01/03/20 01/04/20 19:00 07:00 Intake Total 800 ml Output Total 450 ml 1000 ml Balance -450 ml -200 ml Intake Free Water 200 ml Tube Feeding 600 ml Output Urine Total 450 ml 1000 ml # Voids 1 1 Dressing: other Wound: other Drains: other Cardiovascular: RSR Respiratory: decreased breath sounds Abdomen: soft, non-tender, present bowel sounds Extremities: no cyanosis Laboratory Tests Test 01/04/20 06:29 White Blood Count 12.3 K/UL (4.8-10.8) H Red Blood Count 2.96 M/UL (4.20-5.40) L Hemoglobin 9.4 G/DL (12.0-16.0) L Hematocrit 27.5 % (37.0-47.0) L Mean Corpuscular Volume 93 FL (80-99) Mean Corpuscular Hemoglobin 31.8 PG (27.0-31.0) H Mean Corpuscular Hemoglobin Concent 34.2 G/DL (32.0-36.0) Red Cell Distribution Width 12.8 % (11.6-14.8) Platelet Count 615 K/UL (150-450) H Mean Platelet Volume 5.9 FL (6.5-10.1) L Neutrophils (%) (Auto) 69.8 % (45.0-75.0) Lymphocytes (%) (Auto) 17.6 % (20.0-45.0) L Monocytes (%) (Auto) 11.0 % (1.0-10.0) H Eosinophils (%) (Auto) 0.7 % (0.0-3.0) Basophils (%) (Auto) 1.0 % (0.0-2.0) Sodium Level 139 MMOL/L (136-145) Potassium Level 3.6 MMOL/L (3.5-5.1) Chloride Level 103 MMOL/L (98-107) Carbon Dioxide Level 33 MMOL/L (21-32) H Anion Gap 3 mmol/L (5-15) L Blood Urea Nitrogen 15 mg/dL (7-18) Creatinine 0.7 MG/DL (0.55-1.30) Estimat Glomerular Filtration Rate > 60 mL/min (>60) Glucose Level 135 MG/DL (74-106) H Calcium Level 8.3 MG/DL (8.5-10.1) L Plan Problems: (1) Leukocytosis Assessment & Plan: Acute leukocytosis. Microbiology identified staph E. On antibiotics per infectious disease. WBC trending down. Complete examination identified no external source of potential staph infection in the blood bacteremia DTI noted Continue antibiotics as per infectious disease Trend labs We will follow with recommendations (2) Sepsis Assessment & Plan: Patient CO VID Pneumonia improving Recent acute leukocytosis trending down Course of hydroxy completed stable Improving Continue current care plan Abnormal LFTs identified Hold on abdominal ultrasound for now nutritional optimization turn q2h off load pressures cont tube feeds at goal DAILY ESTIMATED NEEDS: Needs based on ROSARIO, Cardiac/ 52kg 25-30 kcals/kg 1536-8513 total kcals 1-1.2 g protein/kg 52-62 g total protein 25-30 mL/kg 6622-4298 total fluid mLs NUTRITION DIAGNOSIS: Swallowing difficulty R/T dysphagia, AMS, lethargy as evidenced by NPO at this time, [employer] eval pending, FTT dx, s/p NGT feeding, now NPO, pending PEG placement. CURRENT TF:NPO ENTERAL NUTRITION RECOMMENDATIONS: Jevity 1.2 @ 50ml/hr x 24 hrs to provide 1200ml, 1440kcal, 66g prot, 968ml free water * S/p PEG placement, resume previous TF -> initiate @ 20ml/hr x 6 hrs, advance 10ml q 4-6 hrs as tolerated to goal rate * HOB over 30 degrees * Water flush of 150ml q 8 hrs --- W/ consistently elev BGs, rec Glucerna 1.5 (Glucerna 1.2 is out of stock) @ goal rate of 40ml/hr x 24 hrs to provide 960ml, 1440kcal, 79g prot, 729ml free water. ADDITIONAL RECOMMENDATIONS: * Calibrated bedscale wt for accurate CBW- discrepancy wt in EMR noted per SNF record: HT=60", OJ=325.4lbs (December 2019) * Monitor for possible PEG placement- schedule for 5/ * Monitor BGs, need for carb controlled TF * Monitor lytes, replete as needed (3) Staphylococcus epidermidis bacteremia Assessment & Plan: As above Andi Valera January 04, 2020 15:58
[2020-01-04 16:00] VITALS: BP 127/80
[2020-01-04 20:00] VITALS: BP 140/74
[2020-01-04] MEDS: Atorvastatin 20mg tab ORAL SCH (21:29)
--- NOTE | 2020-01-04 21:35 | Infectious Diseases Prog Note ---
Assessment/Plan Problems: (1) Leukocytosis Assessment & Plan: suspect due to CAUTI with Proteus Mirabilis , will switch zosyn empirically to aztreonam to cover for CAUTI , repeated Blood culture x 2 IS NEGATIVE , CXR no acute infiltrates or effusion , OFF vancomycin since completed her course of treatment for two weeks for bacteremia due to staph spp (2) Catheter-associated urinary tract infection Assessment & Plan: with PROTEUS MIRABILIS , already on zosyn , will switch to aztreonam for 10 days , ramos was changed on 12/29 as per the nurse (3) Sepsis Assessment & Plan: with Staphylococcus epidermidis grew out of four bottles from both sets, source ? continue vancomycin for two weeks total , repeated blood culture grew the same organism but from one bottle only most likely contaminants. EOT 01/02/20 (4) COVID-19 virus infection Assessment & Plan: keep in enhanced droplet isolation, S/P hydroxychloroquin with zinc and vitamin C for five days total.repeated PCR test times two so far is negative. (5) Viral pneumonia Assessment & Plan: due to COVID 19, S/P hydroxychloroquine , with zinc and vitamin C for five days, Repeated PCR test is negative (6) ROSARIO (acute kidney injury) Assessment & Plan: suspect due to dehydration and poor oral intake improving monitor renal function avoid nephrotoxic's (7) NSTEMI (non-ST elevated myocardial infarction) Assessment & Plan: could be due to COVID 19, cardiology is following monitor troponin level Subjective ROS Limited/Unobtainable: Yes Allergies: Coded Allergies: MEMANTINE (Unverified Allergy, Unknown, 12/15/19) SERTRALINE (Unverified Allergy, Unknown, 12/15/19) Subjective she was laying in bed, comfortable, not responsive to verbal commands but to touch only , has no fever today, no cough or SOB, still confused , receiving meds though NGT , no agitation , no diarrhea Objective Vital Signs Last 24 Hour Vital Signs Date Time Temp Pulse Resp B/P (MAP) Pulse Ox O2 Delivery O2 Flow Rate FiO2 01/04/20 21:31 140/74 01/04/20 16:00 80 01/04/20 16:00 97.9 82 20 127/80 (96) 100 01/04/20 14:55 152/78 01/04/20 14:54 152/78 01/04/20 12:00 68 01/04/20 12:00 97.8 73 20 152/78 (102) 100 01/04/20 09:00 Room Air 01/04/20 08:00 66 01/04/20 08:00 98.1 74 20 131/60 (83) 100 01/04/20 05:27 140/77 01/04/20 04:00 Room Air 01/04/20 04:00 98.4 82 19 140/77 (98) 98 01/04/20 04:00 75 01/04/20 00:00 98.2 88 18 135/83 (100) 98 01/04/20 00:00 70 01/04/20 00:00 Room Air 01/03/20 22:12 139/80 Height (Feet): 5 Height (Inches): 0.00 Weight (Pounds): 153 General Appearance: WD/WN, no acute distress HEENT: normocephalic, atraumatic, anicteric, mucous membranes moist, PERRL Respiratory/Chest: chest wall non-tender, lungs clear, normal breath sounds, no respiratory distress, no accessory muscle use Cardiovascular: normal peripheral pulses, normal rate, regular rhythm, no gallop/murmur, no JVD Abdomen: normal bowel sounds, soft, non tender, no organomegaly, non distended , no mass, no scars Genitourinary: normal external genitalia Extremities: no cyanosis, no clubbing Skin: no rash, no lesions 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: unresponsiveness Lymphatic: no neck adenopathy, no groin adenopathy Musculoskeletal: normal muscle bulk Microbiology Date/Time Source Procedure Growth Status 01/02/20 07:00 Blood Blood Culture - Preliminary NO GROWTH AFTER 24 HOURS Resulted 01/02/20 01:00 Blood Blood Culture - Preliminary NO GROWTH AFTER 48 HOURS Resulted 01/01/20 22:19 Indwelling Cath Urine Culture - Final Proteus Mirabilis Complete Laboratory Tests Test 01/04/20 06:29 White Blood Count 12.3 K/UL (4.8-10.8) H Red Blood Count 2.96 M/UL (4.20-5.40) L Hemoglobin 9.4 G/DL (12.0-16.0) L Hematocrit 27.5 % (37.0-47.0) L Mean Corpuscular Volume 93 FL (80-99) Mean Corpuscular Hemoglobin 31.8 PG (27.0-31.0) H Mean Corpuscular Hemoglobin Concent 34.2 G/DL (32.0-36.0) Red Cell Distribution Width 12.8 % (11.6-14.8) Platelet Count 615 K/UL (150-450) H Mean Platelet Volume 5.9 FL (6.5-10.1) L Neutrophils (%) (Auto) 69.8 % (45.0-75.0) Lymphocytes (%) (Auto) 17.6 % (20.0-45.0) L Monocytes (%) (Auto) 11.0 % (1.0-10.0) H Eosinophils (%) (Auto) 0.7 % (0.0-3.0) Basophils (%) (Auto) 1.0 % (0.0-2.0) Sodium Level 139 MMOL/L (136-145) Potassium Level 3.6 MMOL/L (3.5-5.1) Chloride Level 103 MMOL/L (98-107) Carbon Dioxide Level 33 MMOL/L (21-32) H Anion Gap 3 mmol/L (5-15) L Blood Urea Nitrogen 15 mg/dL (7-18) Creatinine 0.7 MG/DL (0.55-1.30) Estimat Glomerular Filtration Rate > 60 mL/min (>60) Glucose Level 135 MG/DL (74-106) H Calcium Level 8.3 MG/DL (8.5-10.1) L Current Medications Medications (Trade) Dose Ordered Sig/Ovi Route PRN Reason Start Time Stop Time Status Last Admin Dose Admin Acetaminophen (Tylenol) 650 mg Q4H PRN NG Temp >100.5 01/02/20 01:00 02/01/20 00:59 01/02/20 01:33 Aspirin (ASA) 81 mg DAILY NG 12/19/19 09:00 02/02/20 08:59 01/04/20 10:17 Atorvastatin Calcium (Lipitor) 20 mg BEDTIME ORAL 12/19/19 21:00 03/18/20 20:59 01/04/20 21:29 Captopril (Capoten) 6.25 mg EVERY 8 HOURS ORAL 12/30/19 14:00 01/24/20 20:59 01/04/20 21:31 Folic Acid (Folate) 2 mg DAILY NG 12/30/19 12:00 01/29/20 11:59 01/04/20 10:17 Heparin Sodium (Porcine) (Heparin 5000 units/ml) 5,000 units EVERY 12 HOURS SUBQ 12/19/19 21:00 02/02/20 20:59 01/04/20 10:17 Lansoprazole (Prevacid) 30 mg BID NG 12/29/19 18:00 01/28/20 17:59 01/04/20 17:35 Nitroglycerin (Ntg) 1 patch Q24H TDERMAL 12/19/19 14:00 01/14/20 13:59 01/04/20 14:55 Piperacillin Sod/ Tazobactam Sod 3.375 gm/Sodium Chloride 110 ml @ 27.5 mls/hr EVERY 8 HOURS IVPB 01/02/20 14:00 01/07/20 13:59 01/04/20 14:45 Valproic Acid (Depakene) 500 mg EVERY 12 HOURS NG 12/18/19 23:15 01/17/20 23:14 01/04/20 21:29 Sukhjinder Howell M.D. January 04, 2020 21:35
[2020-01-05] VITALS (12 sets, daily range): BP systolic 87–135; BP diastolic 41–81
[2020-01-05] MEDS: Aztreonam Inj 1 GM in D5W 55 ML IVPB SCH ×4 (01:27→23:20)
[2020-01-05] MEDS: Captopril 12.5mg tab ORAL SCH (06:18)
[2020-01-05] MEDS: Heparin 5000 units/ml inj SUBQ SCH ×2 (08:25→21:15)
[2020-01-05] MEDS: Aspirin Baby 81mg NG SCH (08:27)
[2020-01-05] MEDS: Valproic Acid 250mg/5ml Liquid NG SCH ×2 (08:32→21:09)
--- NOTE | 2020-01-05 08:45 | Pre-Procedure Note/Attestation ---
Pre-Procedure Note/Attestation Complete Prior to Procedure Planned Procedure: not applicable Procedure Narrative: egd/peg Indications for Procedure Pre-Operative Diagnosis: dysphagia Attestation I attest that I discussed the nature of the procedure; its benefits; risks and complications; and alternatives (and the risks and benefits of such alternatives ), prior to the procedure, with the patient (or the patient's legal franchise sales representative). I attest that, if there was a reasonable possibility of needing a blood transfusion, the patient (or the patient's legal franchise sales representative) was given the [facility] standardized written summary, pursuant to the Jaime Jb Blood Safety Act ([place] Health and Safety Code # 1645, as amended). I attest that I re-evaluated the patient just prior to the surgery and that there has been no change in the patient's H&P, except as documented below: Sven Villalta MD January 05, 2020 08:45
--- NOTE | 2020-01-05 08:57 | Anethesia Preoperative Eval ---
Anesthesia Pre-op PMH/ROS General Date of Evaluation: January 05, 2020 Time of Evaluation: 08:54 Anesthesiologist: Sanju ASA Score: ASA 4 Mallampati Score Class I : Soft palate, uvula, fauces, pillars visible Class II: Soft palate, uvula, fauces visible Class III: Soft palate, base of uvula visible Class IV: Only hard plate visible Mallampati Classification: Class III Surgeon: Ambar Diagnosis: Dysphagia Surgical Procedure: EGD Peg placement Anesthesia History: none Family History: no anesthesia problems Allergies: Coded Allergies: MEMANTINE (Unverified Allergy, Unknown, 12/15/19) SERTRALINE (Unverified Allergy, Unknown, 12/15/19) Medications: see eMAR Patient NPO?: Yes Past Medical History Cardiovascular: Reports: HTN, CAD, NC; Denies: valve dz, arrhythmia, other Pulmonary: Denies: asthma, COPD, DANIEL, other Gastrointestinal/Genitourinary: Reports: GERD, CRI; Denies: ESRD, other 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: Reports: dementia; Denies: CVA, depression/anxiety, TIA, other Endocrine: Reports: hypothyroidism; Denies: DM, steroids, other HEENT: Denies: cataract (L), cataract (R), glaucoma, [place] (L), [place] (R), other Hematology/Immune: Reports: anemia - of chronic d-s; Denies: DVT, bleeding disorder, other Musculoskeletal/Integumentary: Reports: other - contructed PMH Narrative: as above PSxH Narrative: see H&P Anesthesia Pre-op Phys. Exam Physician Exam Last Vital Signs Date Time Temp Pulse Resp B/P (MAP) Pulse Ox O2 Delivery O2 Flow Rate FiO2 01/05/20 06:18 125/78 01/05/20 04:00 82 01/05/20 04:00 98.1 18 95 01/04/20 21:00 Room Air Constitutional: NAD Neurologic: other - unable t9o obtaine Cardiovascular: RRR Respiratory: CTA Gastrointestinal: S/NT/ND Airway Exam Mallampati Score: Class III MO: limited Neck: stiff ROM: limited Teeth: missing Dentures: no upper, no lower Anesthesia Pre-op A/P Labs see chart Risk Assessment & Plan Assessment: ASA 4 Plan: MAC Status Change Before Surgery: No Pre-Antibiotics Drug: Cefoxitin 1gr. Given Within 1 Hr of Incision: Yes Time Given: 08:57 Tristan Bills MD January 05, 2020 08:57
[2020-01-05] MEDS ORDERED: NS 500ML IVPB ONE (09:44)
--- NOTE | 2020-01-05 10:10 | Immediate Post-Op Evaluation ---
Immediate Post-Op Evalulation Immediate Post-Op Evalulation Procedure: EGD PEG tube placement Date of Evaluation: January 05, 2020 Time of Evaluation: 10:09 IV Fluids: 200 Blood Products: none` Estimated Blood Loss: min Urinary Output: none Blood Pressure Systolic: 114 Blood Pressure Diastolic: 56 Pulse Rate: 72 Respiratory Rate: 20 O2 Sat by Pulse Oximetry: 99 Temperature (Fahrenheit): 97.6 Pain Score (1-10): 1 Nausea: No Vomiting: No Complications none Patient Status: reacts, patent, none Hydration Status: adequate Tristan Bills MD January 05, 2020 10:10
--- NOTE | 2020-01-05 10:11 | Endoscopy Procedure Note ---
Endoscopy Procedure Note General Indication for Procedure: dysphagia Procedures Performed: EGD, PEG Operative Findings/Diagnosis: same Specimen: none Pt Tolerated Procedure Well: Yes Estimated Blood Loss: none Anesthesia Anesthesiologist: helder Anesthesia: MAC Inserted Devices Implant(s) used?: No GI Core Measures 50 yrs or older w/o bx or poly: Not Applicable 10yrs. F/U recommended: Not Applicable Sven Villalta MD January 05, 2020 10:11
--- NOTE | 2020-01-05 10:12 | 48 Hour Post Anesthesia Eval ---
Post Anesthesia Evaluation Procedure: EGD PEG tube placement Date of Evaluation: January 05, 2020 Time of Evaluation: 10:58 Blood Pressure Systolic: 128 0: 74 Pulse Rate: 68 Respiratory Rate: 20 Temperature (Fahrenheit): 97.8 O2 Sat by Pulse Oximetry: 98 Airway: patent Nausea: No Vomiting: No Pain Intensity: 1 Hydration Status: adequate Cardiopulmonary Status: stable Mental Status/LOC: patient returned to baseline Follow-up Care/Observations: n/a Post-Anesthesia Complications: none Follow-up care needed: N/A Tristan Bills MD January 05, 2020 10:12
[2020-01-05 11:35] LABS: BASOPHILS % (AUTO) 1.2 % (0.0-2.0); EOSINOPHILS % (AUTO) 0.7 % (0.0-3.0); HEMATOCRIT 29.5 % (37.0-47.0); HEMOGLOBIN 9.8 G/DL (12.0-16.0); LYMPHOCYTES % (AUTO) 23.9 % (20.0-45.0); MEAN CORPUSCULAR VOLUME 94 FL (80-99); MONOCYTES % (AUTO) 7.1 % (1.0-10.0); NEUTROPHILS % (AUTO) 67.1 % (45.0-75.0); PLATELET COUNT 630 K/UL (150-450); RED BLOOD COUNT 3.13 M/UL (4.20-5.40); RED CELL DISTRIBUTION WIDTH 13.1 % (11.6-14.8); WHITE BLOOD COUNT 12.3 K/UL (4.8-10.8)
[2020-01-05 11:49] LABS: ANION GAP 4 mmol/L (5-15); BLOOD UREA NITROGEN 12 mg/dL (7-18); CALCIUM 8.5 MG/DL (8.5-10.1); CARBON DIOXIDE 29 MMOL/L (21-32); CHLORIDE 105 MMOL/L (98-107); CREATININE 0.5 MG/DL (0.55-1.30); POTASSIUM 4.1 MMOL/L (3.5-5.1); SODIUM 138 MMOL/L (136-145)
--- NOTE | 2020-01-05 12:53 | Pulmonology Progress Note ---
MattMarge SOCIAL INSURANCE ANALYST 01/05/20 1253: Assessment/Plan Assessment/Plan PROBLEMS Confirmed COVID-19 virus infection Viral pneumonia Electrolyte imbalance NSTEMI (non-ST elevated myocardial infarction) Encephalopathy Dehydration ROSARIO (acute kidney injury) Staphylococcus epidermidis bacteremia Anemia Assessment/Plan Probably sepsis ( POA, with leukocytosis, lactic acidosis, evidence of infection ) Confirmed CoVID 19 infection Acute hypoxemic respiratory failure-resolved S epidermis bacteremia New leukocytosis with fevers, Proteus UTI Acute renal failure - RESOLVED Severe dehydration - IMPROVED Hypernatremia indicative of free water depletion Hypercalcemia likely due to dehydration Elevated hemoglobin likely secondary to hemoconcentration, now anemia Elevated troponin/NSTEMI Poor p.o. intake / failure to thrive Dementia Hypertension Generalized anxiety disorder Dysphagia , s/p EGD and PEG 01/04 Anemia of chronic disease Folate deficiency Plan: * COVID-19 isolation status, confirmed 12/14, * repeat COVID 12/21- and 12/24 NGT -> off isolation * on tele now * monitor oxygenation closely, on RA or only on 1-2L nasal cannula * CXR prn only if worsening symptoms, CXR 12/16 clear lungs * fup CXR 12/25 done , given mild leukocytosis -no acute findings * CRP 11.6 ( down from the highest 23.5) * worsening leukocytosis, fevers, recultured 12/31, fup with cx: UA + pyuria, UCX- GNB ; BCX -NGTD * CXR 01/01 No focal consolidative process or pleural effusions, not likely PNA, leuk probably due to UTI * also check stool C dif * Vanco per ID, need 2 wks for Staph epidermidis ( repeated BCX 12/20 still + with Staph epidermidis 09/02) * discussed with ID Dr Howell - Tin added for GN coverage 01/01 * UCX + Proteus, Zosyn changed to Aztreonam per ID * Completed 5 days of Plaquenil * s/p IVF , nephro on board * Monitor electrolytes and renal parameters * TTE per cardio * on a/PLT therapy with ASA, statin , [facility]KE for afterload reduction * NPO, NGTF's, ABSTRACTOR eval , , strict aspiration precautions, unable to participate in swallow eval * will need either G tube or palliative care * Cont Depakote 500 mg bid from SNF * DVT ppx: heparin SQ * Anemia w/up c/w ACD and folate deficiency, started on folate replacement * stool OB negative * monitor HH with goal to keep Hgb above 7 * Full Code per prior documented ECP notes * Dr Toledo spoke with daughter Dayna Milton 12/27 ([phone]) and discussed further goals of care, she will need to discuss with other family members and will get back to us: either PEG placement or palliative care * awaiting for family decision, daughter decided to continue Full code and wants G tube * GI on board now, * s/p EGD and PEG /, * asp precautions, GTF as per GI recs Prophylaxis: Heparin SQ Disposition: downgraded to tele Time Spent (Minutes): 35 Notes Reviewed: cardio, renal, ID Discussed with: nurses, consultants case discussed and evaluated by supervising physician Subjective ROS Limited/Unobtainable: Yes Interval Events: Allergies: Coded Allergies: MEMANTINE (Unverified Allergy, Unknown, 12/15/19) SERTRALINE (Unverified Allergy, Unknown, 12/15/19) Subjective no fevers since 01/01, leukocytosis trending down pulse ox stable on RA SARS- CoV -2 by PCR 12/21 and 12/24 not detected s/p EGF and PEG this am 01/04 Objective Last 24 Hour Vital Signs Date Time Temp Pulse Resp B/P (MAP) Pulse Ox O2 Delivery O2 Flow Rate FiO2 01/05/20 12:00 97.6 86 20 126/73 (90) 96 01/05/20 10:35 97.5 66 15 95/48 100 Nasal Cannula 3 01/05/20 10:25 65 14 99/48 100 Nasal Cannula 3 01/05/20 10:15 66 17 87/41 100 Nasal Cannula 3 01/05/20 10:12 68 20 98 01/05/20 10:10 68 17 98/48 100 Nasal Cannula 3 01/05/20 10:10 72 20 99 01/05/20 10:04 97.5 68 24 95/51 100 Nasal Cannula 3 01/05/20 09:00 Room Air 01/05/20 08:00 98.1 74 17 135/73 (93) 98 01/05/20 06:18 125/78 01/05/20 04:00 82 5/6/20 04:00 98.1 73 18 125/78 (94) 95 01/05/20 00:00 97.7 66 19 132/81 (98) 95 01/05/20 00:00 82 01/04/20 21:31 140/74 01/04/20 21:00 Room Air 01/04/20 20:00 97.9 85 19 140/74 (96) 97 01/04/20 16:00 80 01/04/20 16:00 97.9 82 20 127/80 (96) 100 01/04/20 14:55 152/78 01/04/20 14:54 152/78 Intake and Output 01/04/20 01/05/20 19:00 07:00 Output Total 400 ml 750 ml Balance -400 ml -750 ml Output Urine Total 400 ml 750 ml # Voids 1 # Bowel Movements 1 Objective General Appearance: WD/WN, in no acute distress elderly AA female HEENT: normocephalic, atraumatic, anicteric, mucous membranes moist, PERRL, NGT Respiratory/Chest: few scattered rhonchi Cardiovascular: normal peripheral pulses, normal rate, regular rhythm, SR on tele Abdomen: normal bowel sounds, soft, non tender, , G tube, abd binder Genitourinary: normal external genitalia Extremities: no cyanosis, no clubbing Skin: no rash, no lesions, no ulcers 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: belt sander II-XII grossly normal, open eyes spontaneously but very poorly responsive Lymphatic: no neck adenopathy, no groin adenopathy Musculoskeletal: muscle atrophy, no effusion 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: unresponsiveness Microbiology Date/Time Source Procedure Growth Status 01/04/20 20:45 Stool Clostridium difficile Toxin Assay - Final Complete Laboratory Tests 01/05/20 11:00: White Blood Count 12.3H, Red Blood Count 3.13L, Hemoglobin 9.8L, Hematocrit 29.5L, Mean Corpuscular Volume 94, Mean Corpuscular Hemoglobin 31.3H, Mean Corpuscular Hemoglobin Concent 33.2, Red Cell Distribution Width 13.1, Platelet Count 630H, Mean Platelet Volume 5.5L, Neutrophils (%) (Auto) 67.1, Lymphocytes (%) (Auto) 23.9, Monocytes (%) (Auto) 7.1, Eosinophils (%) (Auto) 0.7, Basophils (%) (Auto) 1.2, Sodium Level 138, Potassium Level 4.1, Chloride Level 105, Carbon Dioxide Level 29, Anion Gap 4L, Blood Urea Nitrogen 12, Creatinine 0.5L, Estimat Glomerular Filtration Rate > 60, Glucose Level 94, Calcium Level 8.5 Current Medications Medications (Trade) Dose Ordered Sig/Ovi Route PRN Reason Start Time Stop Time Status Last Admin Dose Admin Acetaminophen (Tylenol) 650 mg Q4H PRN NG Temp >100.5 01/05/20 12:16 02/04/20 12:15 Aspirin (ASA) 81 mg DAILY NG 01/06/20 09:00 02/02/20 08:59 Atorvastatin Calcium (Lipitor) 20 mg BEDTIME NG 01/05/20 21:00 03/18/20 20:59 Aztreonam 1 gm/ Dextrose 55 ml @ 110 mls/hr Q8H IVPB 01/05/20 16:00 01/12/20 00:00 Captopril (Capoten) 6.25 mg EVERY 8 HOURS NG 01/05/20 14:00 01/24/20 20:59 Folic Acid (Folate) 2 mg DAILY NG 01/06/20 09:00 01/29/20 11:59 Heparin Sodium (Porcine) (Heparin 5000 units/ml) 5,000 units EVERY 12 HOURS SUBQ 01/05/20 21:00 02/02/20 20:59 Lansoprazole (Prevacid) 30 mg BID NG 01/05/20 18:00 01/28/20 17:59 Nitroglycerin (Ntg) 1 patch Q24H TDERMAL 01/05/20 14:00 01/14/20 13:59 Valproic Acid (Depakene) 500 mg EVERY 12 HOURS NG 01/05/20 21:00 01/17/20 23:14 Boby Toledo MD 01/05/20 1831: Assessment/Plan Assessment/Plan PATIENT SEEN AND EXAMINED WITH SOCIAL INSURANCE ANALYST, AGREE WITH ABOVE A&P IT REFLECTS OUR JOINT DELIBERATIONS. S/P PEG TODAY Subjective Allergies: Coded Allergies: MEMANTINE (Unverified Allergy, Unknown, 12/15/19) SERTRALINE (Unverified Allergy, Unknown, 12/15/19) Marge Gutierrez NP January 05, 2020 12:53 Boby Toledo MD January 05, 2020 18:31
--- NOTE | 2020-01-05 13:25 | Nephrology Progress Note ---
Assessment/Plan Problem List: (1) ROSARIO (acute kidney injury) (2) Dehydration (3) Electrolyte imbalance (4) NSTEMI (non-ST elevated myocardial infarction) (5) COVID-19 virus infection (6) Anemia Assessment Acute renal failure Severe dehydration Hypernatremia indicative of free water depletion Hypercalcemia likely due to dehydration Elevated hemoglobin likely secondary to hemoconcentration Elevated troponin Poor p.o. intake / failure to thrive Dementia Hypertension Exposure to COVID-19 Plan Covid19 test positive Received PEG today January 04 WBCs down to 12,000 Stable from renal standpoint to view Continue per ID advice Previously: Discontinue potassium chloride p.o. IV Protonix to Prevacid via NG tube At the folic acid to medication Watch declining hemoglobin Aspirin 2D echocardiogram, results still pending Nitropaste Avoid nephrotoxic's Monitor renal parameters Monitor hemoglobin hematocrit Avoid mind altering medication in view of severe lethargy Per orders Subjective ROS Limited/Unobtainable: No Constitutional: Reports: malaise Objective Objective Last 24 Hour Vital Signs Date Time Temp Pulse Resp B/P (MAP) Pulse Ox O2 Delivery O2 Flow Rate FiO2 01/05/20 12:10 97.9 75 18 123/43 (69) 97 01/05/20 12:00 97.6 86 20 126/73 (90) 96 01/05/20 10:35 97.5 66 15 95/48 100 Nasal Cannula 3 01/05/20 10:25 65 14 99/48 100 Nasal Cannula 3 01/05/20 10:15 66 17 87/41 100 Nasal Cannula 3 01/05/20 10:12 68 20 98 01/05/20 10:10 68 17 98/48 100 Nasal Cannula 3 01/05/20 10:10 72 20 99 01/05/20 10:04 97.5 68 24 95/51 100 Nasal Cannula 3 01/05/20 09:00 Room Air 01/05/20 08:00 76 01/05/20 08:00 98.1 74 17 135/73 (93) 98 01/05/20 06:18 125/78 01/05/20 04:00 82 01/05/20 04:00 98.1 73 18 125/78 (94) 95 01/05/20 00:00 97.7 66 19 132/81 (98) 95 01/05/20 00:00 82 01/04/20 21:31 140/74 01/04/20 21:00 Room Air 01/04/20 20:00 97.9 85 19 140/74 (96) 97 01/04/20 16:00 80 01/04/20 16:00 97.9 82 20 127/80 (96) 100 01/04/20 14:55 152/78 01/04/20 14:54 152/78 Intake and Output 01/04/20 01/05/20 19:00 07:00 Output Total 400 ml 750 ml Balance -400 ml -750 ml Output Urine Total 400 ml 750 ml # Voids 1 # Bowel Movements 1 Laboratory Tests 01/05/20 11:00: White Blood Count 12.3H, Red Blood Count 3.13L, Hemoglobin 9.8L, Hematocrit 29.5L, Mean Corpuscular Volume 94, Mean Corpuscular Hemoglobin 31.3H, Mean Corpuscular Hemoglobin Concent 33.2, Red Cell Distribution Width 13.1, Platelet Count 630H, Mean Platelet Volume 5.5L, Neutrophils (%) (Auto) 67.1, Lymphocytes (%) (Auto) 23.9, Monocytes (%) (Auto) 7.1, Eosinophils (%) (Auto) 0.7, Basophils (%) (Auto) 1.2, Sodium Level 138, Potassium Level 4.1, Chloride Level 105, Carbon Dioxide Level 29, Anion Gap 4L, Blood Urea Nitrogen 12, Creatinine 0.5L, Estimat Glomerular Filtration Rate > 60, Glucose Level 94, Calcium Level 8.5 Height (Feet): 5 Height (Inches): 0.00 Weight (Pounds): 153 General Appearance: no apparent distress Cardiovascular: normal rate Respiratory/Chest: decreased breath sounds Abdomen: other - Received a PEG today Objective No change Robert Foreman MD January 05, 2020 13:25
[2020-01-05] MEDS: Captopril 12.5mg tab NG SCH ×2 (14:14→21:13)
[2020-01-05] MEDS: Nitroglycerin Patch 0.4mg TDERMAL SCH (14:15)
--- NOTE | 2020-01-05 15:13 | Surgery Progress Note ---
Surgery Progress Note Subjective Symptoms: improved, tolerating diet, voiding well, passing flatus, BM Objective Last 24 Hour Vital Signs Date Time Temp Pulse Resp B/P (MAP) Pulse Ox O2 Delivery O2 Flow Rate FiO2 01/05/20 14:15 123/43 01/05/20 14:14 123/43 01/05/20 12:10 97.9 75 18 123/43 (69) 97 01/05/20 12:00 97.6 86 20 126/73 (90) 96 01/05/20 10:35 97.5 66 15 95/48 100 Nasal Cannula 3 01/05/20 10:25 65 14 99/48 100 Nasal Cannula 3 01/05/20 10:15 66 17 87/41 100 Nasal Cannula 3 01/05/20 10:12 68 20 98 01/05/20 10:10 68 17 98/48 100 Nasal Cannula 3 01/05/20 10:10 72 20 99 01/05/20 10:04 97.5 68 24 95/51 100 Nasal Cannula 3 01/05/20 09:00 Room Air 01/05/20 08:00 76 01/05/20 08:00 98.1 74 17 135/73 (93) 98 01/05/20 06:18 125/78 01/05/20 04:00 82 01/05/20 04:00 98.1 73 18 125/78 (94) 95 01/05/20 00:00 97.7 66 19 132/81 (98) 95 01/05/20 00:00 82 01/04/20 21:31 140/74 01/04/20 21:00 Room Air 01/04/20 20:00 97.9 85 19 140/74 (96) 97 01/04/20 16:00 80 01/04/20 16:00 97.9 82 20 127/80 (96) 100 I&O Intake and Output 01/04/20 01/05/20 19:00 07:00 Output Total 400 ml 750 ml Balance -400 ml -750 ml Output Urine Total 400 ml 750 ml # Voids 1 # Bowel Movements 1 Dressing: dry Wound: clean Cardiovascular: RSR Respiratory: clear, decreased breath sounds Abdomen: soft, non-tender, present bowel sounds Extremities: no edema, no tenderness, no cyanosis Laboratory Tests Test 01/05/20 11:00 White Blood Count 12.3 K/UL (4.8-10.8) H Red Blood Count 3.13 M/UL (4.20-5.40) L Hemoglobin 9.8 G/DL (12.0-16.0) L Hematocrit 29.5 % (37.0-47.0) L Mean Corpuscular Volume 94 FL (80-99) Mean Corpuscular Hemoglobin 31.3 PG (27.0-31.0) H Mean Corpuscular Hemoglobin Concent 33.2 G/DL (32.0-36.0) Red Cell Distribution Width 13.1 % (11.6-14.8) Platelet Count 630 K/UL (150-450) H Mean Platelet Volume 5.5 FL (6.5-10.1) L Neutrophils (%) (Auto) 67.1 % (45.0-75.0) Lymphocytes (%) (Auto) 23.9 % (20.0-45.0) Monocytes (%) (Auto) 7.1 % (1.0-10.0) Eosinophils (%) (Auto) 0.7 % (0.0-3.0) Basophils (%) (Auto) 1.2 % (0.0-2.0) Sodium Level 138 MMOL/L (136-145) Potassium Level 4.1 MMOL/L (3.5-5.1) Chloride Level 105 MMOL/L (98-107) Carbon Dioxide Level 29 MMOL/L (21-32) Anion Gap 4 mmol/L (5-15) L Blood Urea Nitrogen 12 mg/dL (7-18) Creatinine 0.5 MG/DL (0.55-1.30) L Estimat Glomerular Filtration Rate > 60 mL/min (>60) Glucose Level 94 MG/DL (74-106) Calcium Level 8.5 MG/DL (8.5-10.1) Plan Problems: (1) Leukocytosis Assessment & Plan: Acute leukocytosis. Microbiology identified staph E. On antibiotics per infectious disease. WBC trending down. Complete examination identified no external source of potential staph infection in the blood bacteremia DTI noted Continue antibiotics as per infectious disease Trend labs We will follow with recommendations (2) Sepsis Assessment & Plan: Patient CO VID Pneumonia improving Recent acute leukocytosis trending down Course of hydroxy completed stable Improving Continue current care plan Abnormal LFTs identified Hold on abdominal ultrasound for now nutritional optimization turn q2h off load pressures cont tube feeds at goal DAILY ESTIMATED NEEDS: Needs based on ROSARIO, Cardiac/ 52kg 25-30 kcals/kg 4395-4404 total kcals 1-1.2 g protein/kg 52-62 g total protein 25-30 mL/kg 4411-4977 total fluid mLs NUTRITION DIAGNOSIS: Swallowing difficulty R/T dysphagia, AMS, lethargy as evidenced by NPO at this time, LABORER RAGS eval pending, FTT dx, s/p NGT feeding, now NPO, pending PEG placement. CURRENT TF:NPO ENTERAL NUTRITION RECOMMENDATIONS: Jevity 1.2 @ 50ml/hr x 24 hrs to provide 1200ml, 1440kcal, 66g prot, 968ml free water * S/p PEG placement, resume previous TF -> initiate @ 20ml/hr x 6 hrs, advance 10ml q 4-6 hrs as tolerated to goal rate * HOB over 30 degrees * Water flush of 150ml q 8 hrs --- W/ consistently elev BGs, rec Glucerna 1.5 (Glucerna 1.2 is out of stock) @ goal rate of 40ml/hr x 24 hrs to provide 960ml, 1440kcal, 79g prot, 729ml free water. ADDITIONAL RECOMMENDATIONS: * Calibrated bedscale wt for accurate CBW- discrepancy wt in EMR noted per SNF record: HT=60", VA=016.4lbs (December 2019) * Monitor for possible PEG placement- schedule for 5/4 * Monitor BGs, need for carb controlled TF * Monitor lytes, replete as needed (3) Staphylococcus epidermidis bacteremia Assessment & Plan: As above Andi Valera January 05, 2020 15:13
--- NOTE | 2020-01-05 17:59 | Procedure Note ---
DATE OF PROCEDURE: 01/05/2020 SURGEON: Sven Villalta MD. PROCEDURE: Upper endoscopy with PEG placement. ANESTHESIA: Per Dr. Bills. INSTRUMENT: Olympus adult flexible upper endoscope. INDICATION: Dysphagia. REASON FOR PROCEDURE: The procedure, risks, benefits, and possible consequences, including hemorrhage, aspiration, perforation and infection, and alternative treatments, were explained to the patient/legal guardian by Dr. Sven Villalta and the patient/legal guardian understood and accepted these risks. PROCEDURE IN DETAIL: After informed consent was obtained and the patient was adequately sedated, Olympus upper endoscope was advanced from the mouth to the second portion of the duodenum and retroflexion was performed in the stomach. Then, under endoscopic guidance under sterile condition, a 20-Malay pull type of G-tube was successfully placed in the epigastric area. The distance from the tip of the tube to skin was about 2 cm in size . The patient tolerated the procedure very well without any complication. SUMMARY OF FINDINGS: Status post successful PEG placement. RECOMMENDATIONS: 1. Abdominal binder. 2. Elevate the head of bed at all times. 3. G-tube flush. 4. G-tube care. 5. Start tube feeding later today. The patient received dose of antibiotics prior to this procedure. I want to thank, Dr. Toledo, for this kind referral. Sven Villalta M.D. DR: Elsie JOB#: [id number] CC: Boby Toledo M.D.
[2020-01-05] MEDS: Atorvastatin 20mg tab NG SCH (21:14)
--- NOTE | 2020-01-05 21:51 | Infectious Diseases Prog Note ---
Assessment/Plan Problems: (1) Leukocytosis Assessment & Plan: suspect due to CAUTI with Proteus Mirabilis , continue aztreonam to cover for CAUTI for 10 days , repeated Blood culture x 2 IS NEGATIVE , CXR no acute infiltrates or effusion , OFF vancomycin since completed her course of treatment for two weeks for bacteremia due to staph spp (2) Catheter-associated urinary tract infection Assessment & Plan: with PROTEUS MIRABILIS , already on zosyn , will switch to aztreonam for 10 days , ramos was changed on 12/29 as per the nurse (3) Sepsis Assessment & Plan: with Staphylococcus epidermidis grew out of four bottles from both sets, source ? continue vancomycin for two weeks total , repeated blood culture grew the same organism but from one bottle only most likely contaminants. EOT 01/02/20 (4) COVID-19 virus infection Assessment & Plan: may remove from enhanced droplet isolation, S/P hydroxychloroquin with zinc and vitamin C for five days total.repeated PCR test times two so far is negative. (5) Viral pneumonia Assessment & Plan: due to COVID 19, S/P hydroxychloroquine , with zinc and vitamin C for five days, Repeated PCR test is negative (6) ROSARIO (acute kidney injury) Assessment & Plan: suspect due to dehydration and poor oral intake improving monitor renal function avoid nephrotoxic's (7) NSTEMI (non-ST elevated myocardial infarction) Assessment & Plan: could be due to COVID 19, cardiology is following monitor troponin level Subjective ROS Limited/Unobtainable: Yes Allergies: Coded Allergies: MEMANTINE (Unverified Allergy, Unknown, 12/15/19) SERTRALINE (Unverified Allergy, Unknown, 12/15/19) Subjective she was laying in bed, comfortable, not responsive to verbal commands but to touch only , has no fever today, no cough or SOB, still confused , receiving meds though NGT , no agitation , no diarrhea Objective Vital Signs Last 24 Hour Vital Signs Date Time Temp Pulse Resp B/P (MAP) Pulse Ox O2 Delivery O2 Flow Rate FiO2 01/05/20 21:13 130/60 01/05/20 21:00 Room Air 01/05/20 20:00 99.8 96 19 111/60 (77) 97 01/05/20 16:00 98.2 97 18 120/52 (74) 96 01/05/20 14:15 123/43 01/05/20 14:14 123/43 01/05/20 12:10 97.9 75 18 123/43 (69) 97 01/05/20 12:00 97.6 86 20 126/73 (90) 96 01/05/20 10:35 97.5 66 15 95/48 100 Nasal Cannula 3 01/05/20 10:25 65 14 99/48 100 Nasal Cannula 3 01/05/20 10:15 66 17 87/41 100 Nasal Cannula 3 01/05/20 10:12 68 20 98 01/05/20 10:10 68 17 98/48 100 Nasal Cannula 3 01/05/20 10:10 72 20 99 01/05/20 10:04 97.5 68 24 95/51 100 Nasal Cannula 3 01/05/20 09:00 Room Air 01/05/20 08:00 76 01/05/20 08:00 98.1 74 17 135/73 (93) 98 01/05/20 06:18 125/78 01/05/20 04:00 82 01/05/20 04:00 98.1 73 18 125/78 (94) 95 01/05/20 00:00 97.7 66 19 132/81 (98) 95 01/05/20 00:00 82 Height (Feet): 5 Height (Inches): 0.00 Weight (Pounds): 153 General Appearance: WD/WN, no acute distress HEENT: normocephalic, atraumatic, anicteric, mucous membranes moist, PERRL Respiratory/Chest: chest wall non-tender, lungs clear, normal breath sounds, no respiratory distress, no accessory muscle use Cardiovascular: normal peripheral pulses, normal rate, regular rhythm, no gallop/murmur, no JVD Abdomen: normal bowel sounds, soft, non tender, no organomegaly, non distended , no mass, no scars Genitourinary: normal external genitalia Extremities: no cyanosis, no clubbing Skin: no rash, no lesions 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: alert, responsive Lymphatic: no neck adenopathy, no groin adenopathy Musculoskeletal: normal muscle bulk, no effusion Microbiology Date/Time Source Procedure Growth Status 01/04/20 20:45 Stool Clostridium difficile Toxin Assay - Final Complete Laboratory Tests Test 01/05/20 11:00 White Blood Count 12.3 K/UL (4.8-10.8) H Red Blood Count 3.13 M/UL (4.20-5.40) L Hemoglobin 9.8 G/DL (12.0-16.0) L Hematocrit 29.5 % (37.0-47.0) L Mean Corpuscular Volume 94 FL (80-99) Mean Corpuscular Hemoglobin 31.3 PG (27.0-31.0) H Mean Corpuscular Hemoglobin Concent 33.2 G/DL (32.0-36.0) Red Cell Distribution Width 13.1 % (11.6-14.8) Platelet Count 630 K/UL (150-450) H Mean Platelet Volume 5.5 FL (6.5-10.1) L Neutrophils (%) (Auto) 67.1 % (45.0-75.0) Lymphocytes (%) (Auto) 23.9 % (20.0-45.0) Monocytes (%) (Auto) 7.1 % (1.0-10.0) Eosinophils (%) (Auto) 0.7 % (0.0-3.0) Basophils (%) (Auto) 1.2 % (0.0-2.0) Sodium Level 138 MMOL/L (136-145) Potassium Level 4.1 MMOL/L (3.5-5.1) Chloride Level 105 MMOL/L (98-107) Carbon Dioxide Level 29 MMOL/L (21-32) Anion Gap 4 mmol/L (5-15) L Blood Urea Nitrogen 12 mg/dL (7-18) Creatinine 0.5 MG/DL (0.55-1.30) L Estimat Glomerular Filtration Rate > 60 mL/min (>60) Glucose Level 94 MG/DL (74-106) Calcium Level 8.5 MG/DL (8.5-10.1) Current Medications Medications (Trade) Dose Ordered Sig/Ovi Route PRN Reason Start Time Stop Time Status Last Admin Dose Admin Acetaminophen (Tylenol) 650 mg Q4H PRN NG Temp >100.5 01/05/20 12:16 02/04/20 12:15 Aspirin (ASA) 81 mg DAILY NG 01/06/20 09:00 02/02/20 08:59 Atorvastatin Calcium (Lipitor) 20 mg BEDTIME NG 01/05/20 21:00 03/18/20 20:59 01/05/20 21:14 Aztreonam 1 gm/ Dextrose 55 ml @ 110 mls/hr Q8H IVPB 01/05/20 16:00 01/12/20 00:00 01/05/20 16:25 Captopril (Capoten) 6.25 mg EVERY 8 HOURS NG 01/05/20 14:00 01/24/20 20:59 01/05/20 21:13 Folic Acid (Folate) 2 mg DAILY NG 01/06/20 09:00 01/29/20 11:59 Heparin Sodium (Porcine) (Heparin 5000 units/ml) 5,000 units EVERY 12 HOURS SUBQ 01/05/20 21:00 02/02/20 20:59 01/05/20 21:15 Lansoprazole (Prevacid) 30 mg BID NG 01/05/20 18:00 01/28/20 17:59 01/05/20 17:25 Nitroglycerin (Ntg) 1 patch Q24H TDERMAL 01/05/20 14:00 01/14/20 13:59 01/05/20 14:15 Valproic Acid (Depakene) 500 mg EVERY 12 HOURS NG 01/05/20 21:00 01/17/20 23:14 01/05/20 21:09 Sukhjinder Howell M.D. January 05, 2020 21:51
[2020-01-06] VITALS (7 sets, daily range): BP systolic 109–140; BP diastolic 53–82
[2020-01-06] MEDS: Captopril 12.5mg tab NG SCH ×3 (05:13→21:46)
[2020-01-06 07:10] LABS: BASOPHILS % (AUTO) 0.6 % (0.0-2.0); EOSINOPHILS % (AUTO) 0.2 % (0.0-3.0); HEMATOCRIT 29.6 % (37.0-47.0); HEMOGLOBIN 10.2 G/DL (12.0-16.0); MEAN CORPUSCULAR VOLUME 93 FL (80-99); MONOCYTES % (AUTO) 8.5 % (1.0-10.0); NEUTROPHILS % (AUTO) 72.8 % (45.0-75.0); PLATELET COUNT 752 K/UL (150-450); RED CELL DISTRIBUTION WIDTH 12.8 % (11.6-14.8); WHITE BLOOD COUNT 15.7 K/UL (4.8-10.8)
[2020-01-06 07:20] LABS: ANION GAP 4 mmol/L (5-15); BLOOD UREA NITROGEN 19 mg/dL (7-18); CALCIUM 8.8 MG/DL (8.5-10.1); CARBON DIOXIDE 31 MMOL/L (21-32); CHLORIDE 104 MMOL/L (98-107); CREATININE 0.7 MG/DL (0.55-1.30); SODIUM 139 MMOL/L (136-145)
--- NOTE | 2020-01-06 08:30 | Pulmonology Progress Note ---
Marge Gutierrez GRAPHIC DESIGN INTERN 01/06/20 0830: Subjective ROS Limited/Unobtainable: Yes Interval Events: Allergies: Coded Allergies: MEMANTINE (Unverified Allergy, Unknown, 12/15/19) SERTRALINE (Unverified Allergy, Unknown, 12/15/19) Subjective leukocytosis with some trend up this am, low grade fever 99.8 last night, currently afebrile pulse ox stable on RA SARS- CoV -2 by PCR 12/21 and 12/24 not detected s/p EGF and PEG /6 tolerates TF Objective Last 24 Hour Vital Signs Date Time Temp Pulse Resp B/P (MAP) Pulse Ox O2 Delivery O2 Flow Rate FiO2 01/06/20 05:13 109/59 01/06/20 04:00 98.5 93 19 109/69 (82) 97 01/06/20 00:00 98.0 94 19 110/56 (74) 95 01/05/20 21:13 130/60 01/05/20 21:00 Room Air 01/05/20 20:00 99.8 96 19 111/60 (77) 97 01/05/20 16:00 98.2 97 18 120/52 (74) 96 01/05/20 14:15 123/43 01/05/20 14:14 123/43 01/05/20 12:10 97.9 75 18 123/43 (69) 97 01/05/20 12:00 97.6 86 20 126/73 (90) 96 01/05/20 10:35 97.5 66 15 95/48 100 Nasal Cannula 3 01/05/20 10:25 65 14 99/48 100 Nasal Cannula 3 01/05/20 10:15 66 17 87/41 100 Nasal Cannula 3 01/05/20 10:12 68 20 98 01/05/20 10:10 68 17 98/48 100 Nasal Cannula 3 01/05/20 10:10 72 20 99 01/05/20 10:04 97.5 68 24 95/51 100 Nasal Cannula 3 01/05/20 09:00 Room Air Intake and Output 01/05/20 01/06/20 19:00 07:00 Intake Total 550 ml Output Total 800 ml Balance 550 ml -800 ml Intake Free Water 30 ml IV Total 250 ml Tube Feeding 270 ml Output Urine Total 800 ml # Voids 1 # Bowel Movements 1 Objective General Appearance: WD/WN, in no acute distress elderly AA female HEENT: normocephalic, atraumatic, anicteric, mucous membranes moist, PERRL, NGT Respiratory/Chest: BS overall clear Cardiovascular: normal peripheral pulses, normal rate, Abdomen: normal bowel sounds, soft, non tender, , G tube, abd binder Genitourinary: normal external genitalia Extremities: no cyanosis, no clubbing Skin: no rash, no lesions, no ulcers 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: bordereau clerk II-XII grossly normal, open eyes spontaneously but very poorly responsive Lymphatic: no neck adenopathy, no groin adenopathy Musculoskeletal: muscle atrophy, no effusion Microbiology Date/Time Source Procedure Growth Status 01/04/20 20:45 Stool Clostridium difficile Toxin Assay - Final Complete Laboratory Tests 01/05/20 11:00: White Blood Count 12.3H, Red Blood Count 3.13L, Hemoglobin 9.8L, Hematocrit 29.5L, Mean Corpuscular Volume 94, Mean Corpuscular Hemoglobin 31.3H, Mean Corpuscular Hemoglobin Concent 33.2, Red Cell Distribution Width 13.1, Platelet Count 630H, Mean Platelet Volume 5.5L, Neutrophils (%) (Auto) 67.1, Lymphocytes (%) (Auto) 23.9, Monocytes (%) (Auto) 7.1, Eosinophils (%) (Auto) 0.7, Basophils (%) (Auto) 1.2, Sodium Level 138, Potassium Level 4.1, Chloride Level 105, Carbon Dioxide Level 29, Anion Gap 4L, Blood Urea Nitrogen 12, Creatinine 0.5L, Estimat Glomerular Filtration Rate > 60, Glucose Level 94, Calcium Level 8.5 01/06/20 06:20: White Blood Count 15.7H, Red Blood Count 3.20L, Hemoglobin 10.2L, Hematocrit 29.6L, Mean Corpuscular Volume 93, Mean Corpuscular Hemoglobin 31.8H, Mean Corpuscular Hemoglobin Concent 34.4, Red Cell Distribution Width 12.8, Platelet Count 752H, Mean Platelet Volume 5.7L, Neutrophils (%) (Auto) 72.8, Lymphocytes (%) (Auto) 18.0L, Monocytes (%) (Auto) 8.5, Eosinophils (%) (Auto) 0.2, Basophils (%) (Auto) 0.6, Sodium Level 139, Potassium Level 4.0, Chloride Level 104, Carbon Dioxide Level 31, Anion Gap 4L, Blood Urea Nitrogen 19H, Creatinine 0.7, Estimat Glomerular Filtration Rate > 60, Glucose Level 124H, Calcium Level 8.8 Current Medications Medications (Trade) Dose Ordered Sig/Ovi Route PRN Reason Start Time Stop Time Status Last Admin Dose Admin Acetaminophen (Tylenol) 650 mg Q4H PRN NG Temp >100.5 01/05/20 12:16 02/04/20 12:15 Aspirin (ASA) 81 mg DAILY NG 01/06/20 09:00 02/02/20 08:59 Atorvastatin Calcium (Lipitor) 20 mg BEDTIME NG 01/05/20 21:00 03/18/20 20:59 01/05/20 21:14 Aztreonam 1 gm/ Dextrose 55 ml @ 110 mls/hr Q8H IVPB 01/05/20 16:00 01/12/20 00:00 01/05/20 23:20 Captopril (Capoten) 6.25 mg EVERY 8 HOURS NG 01/05/20 14:00 01/24/20 20:59 01/06/20 05:13 Folic Acid (Folate) 2 mg DAILY NG 01/06/20 09:00 01/29/20 11:59 Heparin Sodium (Porcine) (Heparin 5000 units/ml) 5,000 units EVERY 12 HOURS SUBQ 01/05/20 21:00 02/02/20 20:59 01/05/20 21:15 Lansoprazole (Prevacid) 30 mg BID NG 01/05/20 18:00 01/28/20 17:59 01/05/20 17:25 Nitroglycerin (Ntg) 1 patch Q24H TDERMAL 01/05/20 14:00 01/14/20 13:59 01/05/20 14:15 Valproic Acid (Depakene) 500 mg EVERY 12 HOURS NG 01/05/20 21:00 01/17/20 23:14 01/05/20 21:09 Assessment/Plan Assessment/Plan PROBLEMS Confirmed COVID-19 virus infection Viral pneumonia Electrolyte imbalance NSTEMI (non-ST elevated myocardial infarction) Encephalopathy Dehydration ROSARIO (acute kidney injury) Staphylococcus epidermidis bacteremia Anemia ASSESSMENT Probably sepsis ( POA, with leukocytosis, lactic acidosis, evidence of infection ) Confirmed CoVID 19 infection Acute hypoxemic respiratory failure-resolved S epidermis bacteremia New leukocytosis with fevers, Proteus UTI Acute renal failure - RESOLVED Severe dehydration - IMPROVED Hypernatremia indicative of free water depletion Hypercalcemia likely due to dehydration Elevated hemoglobin likely secondary to hemoconcentration, now anemia Elevated troponin/NSTEMI Poor p.o. intake / failure to thrive Dementia Hypertension Generalized anxiety disorder Dysphagia , s/p EGD and PEG / Anemia of chronic disease Folate deficiency PLAN OF CARE * COVID-19 isolation status, confirmed 12/14, * repeat COVID 12/21- and 12/24 NGT -> off isolation * on [facility] floor now * monitor oxygenation closely, on RA or only on 1-2L nasal cannula * CXR prn only if worsening symptoms, CXR 12/16 clear lungs * fup CXR 12/25 done , given mild leukocytosis -no acute findings * last CRP 16.1 (up from previous), LDH 306 * worsening leukocytosis, fevers, recultured 12/31, fup with cx: UA + pyuria, UCX- GNB ; BCX 01/01 -NGTD * CXR 01/01 No focal consolidative process or pleural effusions, not likely PNA, leuk probably due to UTI * also check stool C dif -MGT 01/03 * Vanco per ID, needs 2 wks for Staph epidermidis ( repeated BCX 12/20 still + with Staph epidermidis 09/02) -completed ; repeated BCX 01/01 NGT * discussed with ID Dr Howell - Zosyn added for GN coverage 01/01, F/c changed 12/29 * UCX + Proteus, Zosyn changed to Aztreonam per ID * Completed 5 days of Plaquenil * s/p IVF , nephro on board * Monitor electrolytes and renal parameters * TTE per cardio * on a/PLT therapy with ASA, statin , [facility] for afterload reduction * NPO, NGTF's, 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 , , strict aspiration precautions, unable to participate in swallow eval * Cont Depakote 500 mg bid from SNF * DVT ppx: heparin SQ * Anemia w/up c/w ACD and folate deficiency, started on folate replacement * stool OB negative * monitor HH with goal to keep Hgb above 7 * Full Code per prior documented ECP notes * Dr Toledo spoke with daughter Dayna Milton 12/27 ([phone]) and discussed further goals of care, she will need to discuss with other family members and will get back to us: either PEG placement or palliative care * awaiting for family decision, daughter decided to continue Full code and wants G tube * GI on board now, * s/p EGD and PEG /6, * asp precautions, GTF as per GI recs, tolerates Notes Reviewed: cardio, renal, ID Discussed with: nurses, case discussed and evaluated by supervising physician Boby Toledo MD 01/07/20 1452: Subjective Allergies: Coded Allergies: MEMANTINE (Unverified Allergy, Unknown, 12/15/19) SERTRALINE (Unverified Allergy, Unknown, 12/15/19) Assessment/Plan Assessment/Plan Patient seen and examined with GRAPHIC DESIGN INTERN. Agree with A&P above as it reflects our joint deliberations. Marge Gutierrez NP January 06, 2020 08:30 Boby Toledo MD January 07, 2020 14:52
[2020-01-06] MEDS: Aspirin Baby 81mg NG SCH (09:10)
[2020-01-06] MEDS: Valproic Acid 250mg/5ml Liquid NG SCH ×2 (09:11→21:46)
[2020-01-06] MEDS: Heparin 5000 units/ml inj SUBQ SCH ×2 (09:18→21:48)
[2020-01-06] MEDS: Aztreonam Inj 1 GM in D5W 55 ML IVPB SCH ×2 (09:19→16:26)
--- NOTE | 2020-01-06 11:13 | General Progress Note ---
Assessment/Plan Status: stable, unchanged Assessment/Plan: 1. The patient is an 89-year-old female with current medical problem as COVID positive pneumonia resolving. 2. Diabetes. 3. Anemia. 4. Abnormal liver function tests. 5. Sepsis. 6. Dysphagia. 7. Non-ST elevation myocardial infarction. 8. Dementia. 9. Encephalopathy. 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 s/p GT placement GTF GT care monitor for residuals Subjective ROS Limited/Unobtainable: No Allergies: Coded Allergies: MEMANTINE (Unverified Allergy, Unknown, 12/15/19) SERTRALINE (Unverified Allergy, Unknown, 12/15/19) Objective Last 24 Hour Vital Signs Date Time Temp Pulse Resp B/P (MAP) Pulse Ox O2 Delivery O2 Flow Rate FiO2 01/06/20 09:00 Room Air 01/06/20 08:00 99.2 84 22 119/53 (75) 94 01/06/20 05:13 109/59 01/06/20 04:00 98.5 93 19 109/69 (82) 97 01/06/20 00:00 98.0 94 19 110/56 (74) 95 01/05/20 21:13 130/60 01/05/20 21:00 Room Air 01/05/20 20:00 99.8 96 19 111/60 (77) 97 01/05/20 16:00 98.2 97 18 120/52 (74) 96 01/05/20 14:15 123/43 01/05/20 14:14 123/43 01/05/20 12:10 97.9 75 18 123/43 (69) 97 01/05/20 12:00 97.6 86 20 126/73 (90) 96 Intake and Output 01/05/20 01/06/20 19:00 07:00 Intake Total 550 ml Output Total 800 ml Balance 550 ml -800 ml Intake Free Water 30 ml IV Total 250 ml Tube Feeding 270 ml Output Urine Total 800 ml # Voids 1 # Bowel Movements 1 Laboratory Tests 01/06/20 06:20: White Blood Count 15.7H, Red Blood Count 3.20L, Hemoglobin 10.2L, Hematocrit 29.6L, Mean Corpuscular Volume 93, Mean Corpuscular Hemoglobin 31.8H, Mean Corpuscular Hemoglobin Concent 34.4, Red Cell Distribution Width 12.8, Platelet Count 752H, Mean Platelet Volume 5.7L, Neutrophils (%) (Auto) 72.8, Lymphocytes (%) (Auto) 18.0L, Monocytes (%) (Auto) 8.5, Eosinophils (%) (Auto) 0.2, Basophils (%) (Auto) 0.6, Sodium Level 139, Potassium Level 4.0, Chloride Level 104, Carbon Dioxide Level 31, Anion Gap 4L, Blood Urea Nitrogen 19H, Creatinine 0.7, Estimat Glomerular Filtration Rate > 60, Glucose Level 124H, Calcium Level 8.8 Height (Feet): 5 Height (Inches): 0.00 Weight (Pounds): 154 General Appearance: no apparent distress EENT: normal ENT inspection Neck: supple Cardiovascular: normal rate Respiratory/Chest: decreased breath sounds Abdomen: normal bowel sounds, non tender, soft Extremities: non-tender Sven Villalta MD January 06, 2020 11:13
--- NOTE | 2020-01-06 12:51 | Nephrology Progress Note ---
Assessment/Plan Problem List: (1) ROSARIO (acute kidney injury) (2) Dehydration (3) Electrolyte imbalance (4) NSTEMI (non-ST elevated myocardial infarction) (5) COVID-19 virus infection (6) Anemia Assessment Acute renal failure Severe dehydration Hypernatremia indicative of free water depletion Hypercalcemia likely due to dehydration Elevated hemoglobin likely secondary to hemoconcentration Elevated troponin Poor p.o. intake / failure to thrive Dementia Hypertension Exposure to COVID-19 Plan Covid19 test positive Received PEG today January 04 WBCs carlene over 15,000 Stable from renal standpoint to view Continue per ID advice Previously: Discontinue potassium chloride p.o. IV Protonix to Prevacid via NG tube At the folic acid to medication Watch declining hemoglobin Aspirin 2D echocardiogram, results still pending Nitropaste Avoid nephrotoxic's Monitor renal parameters Monitor hemoglobin hematocrit Avoid mind altering medication in view of severe lethargy Per orders Subjective ROS Limited/Unobtainable: No Objective Objective Last 24 Hour Vital Signs Date Time Temp Pulse Resp B/P (MAP) Pulse Ox O2 Delivery O2 Flow Rate FiO2 01/06/20 12:00 100.4 86 22 120/71 (87) 96 01/06/20 09:00 Room Air 01/06/20 08:00 99.2 84 22 119/53 (75) 94 01/06/20 05:13 109/59 01/06/20 04:00 98.5 93 19 109/69 (82) 97 01/06/20 00:00 98.0 94 19 110/56 (74) 95 01/05/20 21:13 130/60 01/05/20 21:00 Room Air 01/05/20 20:00 99.8 96 19 111/60 (77) 97 01/05/20 16:00 98.2 97 18 120/52 (74) 96 01/05/20 14:15 123/43 01/05/20 14:14 123/43 Intake and Output 01/05/20 01/06/20 19:00 07:00 Intake Total 550 ml Output Total 800 ml Balance 550 ml -800 ml Intake Free Water 30 ml IV Total 250 ml Tube Feeding 270 ml Output Urine Total 800 ml # Voids 1 # Bowel Movements 1 Laboratory Tests 01/06/20 06:20: White Blood Count 15.7H, Red Blood Count 3.20L, Hemoglobin 10.2L, Hematocrit 29.6L, Mean Corpuscular Volume 93, Mean Corpuscular Hemoglobin 31.8H, Mean Corpuscular Hemoglobin Concent 34.4, Red Cell Distribution Width 12.8, Platelet Count 752H, Mean Platelet Volume 5.7L, Neutrophils (%) (Auto) 72.8, Lymphocytes (%) (Auto) 18.0L, Monocytes (%) (Auto) 8.5, Eosinophils (%) (Auto) 0.2, Basophils (%) (Auto) 0.6, Sodium Level 139, Potassium Level 4.0, Chloride Level 104, Carbon Dioxide Level 31, Anion Gap 4L, Blood Urea Nitrogen 19H, Creatinine 0.7, Estimat Glomerular Filtration Rate > 60, Glucose Level 124H, Calcium Level 8.8 Height (Feet): 5 Height (Inches): 0.00 Weight (Pounds): 154 General Appearance: no apparent distress, lethargic Cardiovascular: tachycardia Respiratory/Chest: decreased breath sounds Abdomen: soft, other - Has PEG now Objective No change Robert Foreman MD January 06, 2020 12:51
[2020-01-06] MEDS: Nitroglycerin Patch 0.4mg TDERMAL SCH ×2 (14:00→14:36)
--- NOTE | 2020-01-06 17:50 | Cardiology Progress Note ---
Assessment/Plan Assessment/Plan 1. Oxb-[id number]-olrpgnfzh myocardial infarction,related to demand vs from covid induced myonecrosis , doubt plaque rupture or cytokine storm 2. Acute renal failure in the setting of volume depletion. 3. Hypernatremia secondary to volume depletion. 4. 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 5. Dementia. 6. Lactic acidosis. 7. History of bradycardia secondary to medications. 8. bacteremia no fever covid status now neg on 2 check on sq heparin for dvt ppx echo prelim noted no sig abn peg performed today wbc elelvated await snf placement Subjective Subjective per rn no SOB noted, responsive to verbal and tactile stimuli, no s/s of pain or discomfort noted. A and O x 1-2, on 02 via NC @ 2 lpm, on contact and droplet isolation for MRSA nares and PUI covid, on Glucerna 1.2 @ 60 cc/h Objective Last 24 Hour Vital Signs Date Time Temp Pulse Resp B/P (MAP) Pulse Ox O2 Delivery O2 Flow Rate FiO2 01/06/20 16:00 97.7 98 18 119/70 (86) 97 01/06/20 14:40 98.1 71 22 120/67 (84) 97 01/06/20 14:35 120/71 01/06/20 14:00 120/67 01/06/20 12:00 100.4 86 22 120/71 (87) 96 01/06/20 09:00 Room Air 01/06/20 08:00 99.2 84 22 119/53 (75) 94 01/06/20 05:13 109/59 01/06/20 04:00 98.5 93 19 109/69 (82) 97 01/06/20 00:00 98.0 94 19 110/56 (74) 95 01/05/20 21:13 130/60 01/05/20 21:00 Room Air 01/05/20 20:00 99.8 96 19 111/60 (77) 97 General Appearance: no apparent distress Intake and Output 01/05/20 01/06/20 19:00 07:00 Intake Total 550 ml 60 ml Output Total 800 ml Balance 550 ml -740 ml Intake Free Water 30 ml IV Total 250 ml Tube Feeding 270 ml 60 ml Output Urine Total 800 ml # Voids 1 # Bowel Movements 1 Laboratory Tests Test 01/06/20 06:20 White Blood Count 15.7 K/UL (4.8-10.8) H Red Blood Count 3.20 M/UL (4.20-5.40) L Hemoglobin 10.2 G/DL (12.0-16.0) L Hematocrit 29.6 % (37.0-47.0) L Mean Corpuscular Volume 93 FL (80-99) Mean Corpuscular Hemoglobin 31.8 PG (27.0-31.0) H Mean Corpuscular Hemoglobin Concent 34.4 G/DL (32.0-36.0) Red Cell Distribution Width 12.8 % (11.6-14.8) Platelet Count 752 K/UL (150-450) H Mean Platelet Volume 5.7 FL (6.5-10.1) L Neutrophils (%) (Auto) 72.8 % (45.0-75.0) Lymphocytes (%) (Auto) 18.0 % (20.0-45.0) L Monocytes (%) (Auto) 8.5 % (1.0-10.0) Eosinophils (%) (Auto) 0.2 % (0.0-3.0) Basophils (%) (Auto) 0.6 % (0.0-2.0) Sodium Level 139 MMOL/L (136-145) Potassium Level 4.0 MMOL/L (3.5-5.1) Chloride Level 104 MMOL/L (98-107) Carbon Dioxide Level 31 MMOL/L (21-32) Anion Gap 4 mmol/L (5-15) L Blood Urea Nitrogen 19 mg/dL (7-18) H Creatinine 0.7 MG/DL (0.55-1.30) Estimat Glomerular Filtration Rate > 60 mL/min (>60) Glucose Level 124 MG/DL (74-106) H Calcium Level 8.8 MG/DL (8.5-10.1) Microbiology Date/Time Source Procedure Growth Status 01/04/20 20:45 Stool Clostridium difficile Toxin Assay - Final Complete Kendell Rosen MD January 06, 2020 17:50
--- NOTE | 2020-01-06 18:23 | Surgery Progress Note ---
Surgery Progress Note Subjective Symptoms: improved, tolerating diet Objective Last 24 Hour Vital Signs Date Time Temp Pulse Resp B/P (MAP) Pulse Ox O2 Delivery O2 Flow Rate FiO2 01/06/20 16:00 97.7 98 18 119/70 (86) 97 01/06/20 14:40 98.1 71 22 120/67 (84) 97 01/06/20 14:35 120/71 01/06/20 14:00 120/67 01/06/20 12:00 100.4 86 22 120/71 (87) 96 01/06/20 09:00 Room Air 01/06/20 08:00 99.2 84 22 119/53 (75) 94 01/06/20 05:13 109/59 01/06/20 04:00 98.5 93 19 109/69 (82) 97 01/06/20 00:00 98.0 94 19 110/56 (74) 95 01/05/20 21:13 130/60 01/05/20 21:00 Room Air 01/05/20 20:00 99.8 96 19 111/60 (77) 97 I&O Intake and Output 01/05/20 01/06/20 19:00 07:00 Intake Total 550 ml 60 ml Output Total 800 ml Balance 550 ml -740 ml Intake Free Water 30 ml IV Total 250 ml Tube Feeding 270 ml 60 ml Output Urine Total 800 ml # Voids 1 # Bowel Movements 1 Dressing: dry Wound: clean Cardiovascular: RSR Respiratory: clear, decreased breath sounds Abdomen: non-tender, present bowel sounds Extremities: no cyanosis Laboratory Tests Test 01/06/20 06:20 White Blood Count 15.7 K/UL (4.8-10.8) H Red Blood Count 3.20 M/UL (4.20-5.40) L Hemoglobin 10.2 G/DL (12.0-16.0) L Hematocrit 29.6 % (37.0-47.0) L Mean Corpuscular Volume 93 FL (80-99) Mean Corpuscular Hemoglobin 31.8 PG (27.0-31.0) H Mean Corpuscular Hemoglobin Concent 34.4 G/DL (32.0-36.0) Red Cell Distribution Width 12.8 % (11.6-14.8) Platelet Count 752 K/UL (150-450) H Mean Platelet Volume 5.7 FL (6.5-10.1) L Neutrophils (%) (Auto) 72.8 % (45.0-75.0) Lymphocytes (%) (Auto) 18.0 % (20.0-45.0) L Monocytes (%) (Auto) 8.5 % (1.0-10.0) Eosinophils (%) (Auto) 0.2 % (0.0-3.0) Basophils (%) (Auto) 0.6 % (0.0-2.0) Sodium Level 139 MMOL/L (136-145) Potassium Level 4.0 MMOL/L (3.5-5.1) Chloride Level 104 MMOL/L (98-107) Carbon Dioxide Level 31 MMOL/L (21-32) Anion Gap 4 mmol/L (5-15) L Blood Urea Nitrogen 19 mg/dL (7-18) H Creatinine 0.7 MG/DL (0.55-1.30) Estimat Glomerular Filtration Rate > 60 mL/min (>60) Glucose Level 124 MG/DL (74-106) H Calcium Level 8.8 MG/DL (8.5-10.1) Plan Problems: (1) Leukocytosis Assessment & Plan: Acute leukocytosis. Microbiology identified staph E. On antibiotics per infectious disease. WBC trending down. Complete examination identified no external source of potential staph infection in the blood bacteremia DTI noted Continue antibiotics as per infectious disease Trend labs We will follow with recommendations (2) Sepsis Assessment & Plan: Patient CO VID Pneumonia improving Recent acute leukocytosis trending down Course of hydroxy completed stable Improving Continue current care plan Abnormal LFTs identified Hold on abdominal ultrasound for now nutritional optimization turn q2h off load pressures cont tube feeds at goal DAILY ESTIMATED NEEDS: Needs based on ROSARIO, Cardiac/ 52kg 25-30 kcals/kg 0666-6431 total kcals 1-1.2 g protein/kg 52-62 g total protein 25-30 mL/kg [id number] total fluid mLs NUTRITION DIAGNOSIS: Swallowing difficulty R/T dysphagia, AMS, lethargy as evidenced by NPO at this time, 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 CURRENT TF:NPO ENTERAL NUTRITION RECOMMENDATIONS: Jevity 1.2 @ 50ml/hr x 24 hrs to provide 1200ml, 1440kcal, 66g prot, 968ml free water * S/p PEG placement, resume previous TF -> initiate @ 20ml/hr x 6 hrs, advance 10ml q 4-6 hrs as tolerated to goal rate * HOB over 30 degrees * Water flush of 150ml q 8 hrs --- W/ consistently elev BGs, rec Glucerna 1.5 (Glucerna 1.2 is out of stock) @ goal rate of 40ml/hr x 24 hrs to provide 960ml, 1440kcal, 79g prot, 729ml free water. ADDITIONAL RECOMMENDATIONS: * Calibrated bedscale wt for accurate CBW- discrepancy wt in EMR noted per SNF record: HT=60", XP=914.4lbs (December 2019) * Monitor for possible PEG placement- schedule for 5/4 * Monitor BGs, need for carb controlled TF * Monitor lytes, replete as needed (3) Staphylococcus epidermidis bacteremia Assessment & Plan: As above Andi Valera January 06, 2020 18:23
--- NOTE | 2020-01-06 20:38 | Infectious Diseases Prog Note ---
Assessment/Plan Problems: (1) Leukocytosis Assessment & Plan: suspect post OP and due to CAUTI with Proteus Mirabilis , on aztreonam to cover for CAUTI for 10 days , repeated Blood culture x 2 IS NEGATIVE , CXR no acute infiltrates or effusion , OFF vancomycin since completed her course of treatment for two weeks for bacteremia due to staph spp (2) Catheter-associated urinary tract infection Assessment & Plan: with PROTEUS MIRABILIS , already on zosyn , will switch to aztreonam for 10 days , ramos was changed on 12/29 as per the nurse (3) Sepsis Assessment & Plan: with Staphylococcus epidermidis grew out of four bottles from both sets, source ? continue vancomycin for two weeks total , repeated blood culture grew the same organism but from one bottle only most likely contaminants. EOT 01/02/20 (4) COVID-19 virus infection Assessment & Plan: may remove from enhanced droplet isolation, S/P hydroxychloroquin with zinc and vitamin C for five days total.repeated PCR test times two so far is negative. (5) Viral pneumonia Assessment & Plan: due to COVID 19, S/P hydroxychloroquine , with zinc and vitamin C for five days, Repeated PCR test is negative (6) ROSARIO (acute kidney injury) Assessment & Plan: suspect due to dehydration and poor oral intake improving monitor renal function avoid nephrotoxic's (7) NSTEMI (non-ST elevated myocardial infarction) Assessment & Plan: could be due to COVID 19, cardiology is following monitor troponin level Subjective ROS Limited/Unobtainable: Yes Allergies: Coded Allergies: MEMANTINE (Unverified Allergy, Unknown, 12/15/19) SERTRALINE (Unverified Allergy, Unknown, 12/15/19) Subjective she was laying in bed, comfortable, started on tube feeding , responsive to verbal commands, no fever today, has dry cough but no SOB, still confused , receiving meds though PEG , no agitation , no diarrhea Objective Vital Signs Last 24 Hour Vital Signs Date Time Temp Pulse Resp B/P (MAP) Pulse Ox O2 Delivery O2 Flow Rate FiO2 01/06/20 16:00 97.7 98 18 119/70 (86) 97 01/06/20 14:40 98.1 71 22 120/67 (84) 97 01/06/20 14:35 120/71 01/06/20 14:00 120/67 01/06/20 12:00 100.4 86 22 120/71 (87) 96 01/06/20 09:00 Room Air 01/06/20 08:00 99.2 84 22 119/53 (75) 94 01/06/20 05:13 109/59 01/06/20 04:00 98.5 93 19 109/69 (82) 97 01/06/20 00:00 98.0 94 19 110/56 (74) 95 01/05/20 21:13 130/60 01/05/20 21:00 Room Air Height (Feet): 5 Height (Inches): 0.00 Weight (Pounds): 154 General Appearance: WD/WN, no acute distress HEENT: normocephalic, atraumatic, anicteric, mucous membranes moist, PERRL Respiratory/Chest: chest wall non-tender, lungs clear, normal breath sounds, no respiratory distress, no accessory muscle use Cardiovascular: normal peripheral pulses, normal rate, regular rhythm, no gallop/murmur, no JVD Abdomen: normal bowel sounds, soft, non tender, no organomegaly, non distended , no mass, no scars Genitourinary: normal external genitalia Extremities: no cyanosis, no clubbing Skin: no rash, no lesions 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: alert, responsive Lymphatic: no neck adenopathy, no groin adenopathy Musculoskeletal: normal muscle bulk, no effusion Microbiology Date/Time Source Procedure Growth Status 01/04/20 20:45 Stool Clostridium difficile Toxin Assay - Final Complete Laboratory Tests Test 01/06/20 06:20 White Blood Count 15.7 K/UL (4.8-10.8) H Red Blood Count 3.20 M/UL (4.20-5.40) L Hemoglobin 10.2 G/DL (12.0-16.0) L Hematocrit 29.6 % (37.0-47.0) L Mean Corpuscular Volume 93 FL (80-99) Mean Corpuscular Hemoglobin 31.8 PG (27.0-31.0) H Mean Corpuscular Hemoglobin Concent 34.4 G/DL (32.0-36.0) Red Cell Distribution Width 12.8 % (11.6-14.8) Platelet Count 752 K/UL (150-450) H Mean Platelet Volume 5.7 FL (6.5-10.1) L Neutrophils (%) (Auto) 72.8 % (45.0-75.0) Lymphocytes (%) (Auto) 18.0 % (20.0-45.0) L Monocytes (%) (Auto) 8.5 % (1.0-10.0) Eosinophils (%) (Auto) 0.2 % (0.0-3.0) Basophils (%) (Auto) 0.6 % (0.0-2.0) Sodium Level 139 MMOL/L (136-145) Potassium Level 4.0 MMOL/L (3.5-5.1) Chloride Level 104 MMOL/L (98-107) Carbon Dioxide Level 31 MMOL/L (21-32) Anion Gap 4 mmol/L (5-15) L Blood Urea Nitrogen 19 mg/dL (7-18) H Creatinine 0.7 MG/DL (0.55-1.30) Estimat Glomerular Filtration Rate > 60 mL/min (>60) Glucose Level 124 MG/DL (74-106) H Calcium Level 8.8 MG/DL (8.5-10.1) Current Medications Medications (Trade) Dose Ordered Sig/Ovi Route PRN Reason Start Time Stop Time Status Last Admin Dose Admin Acetaminophen (Tylenol) 650 mg Q4H PRN NG Temp >100.5 01/05/20 12:16 02/04/20 12:15 Aspirin (ASA) 81 mg DAILY NG 01/06/20 09:00 02/02/20 08:59 01/06/20 09:10 Atorvastatin Calcium (Lipitor) 20 mg BEDTIME NG 01/05/20 21:00 03/18/20 20:59 01/05/20 21:14 Aztreonam 1 gm/ Dextrose 55 ml @ 110 mls/hr Q8H IVPB 01/05/20 16:00 01/12/20 00:00 01/06/20 16:26 Captopril (Capoten) 6.25 mg EVERY 8 HOURS NG 01/05/20 14:00 01/24/20 20:59 01/06/20 14:35 Folic Acid (Folate) 2 mg DAILY NG 01/06/20 09:00 01/29/20 11:59 01/06/20 09:17 Heparin Sodium (Porcine) (Heparin 5000 units/ml) 5,000 units EVERY 12 HOURS SUBQ 01/05/20 21:00 02/02/20 20:59 01/06/20 09:18 Lansoprazole (Prevacid) 30 mg BID NG 01/05/20 18:00 01/28/20 17:59 01/06/20 18:01 Nitroglycerin (Ntg) 1 patch Q24H TDERMAL 01/05/20 14:00 01/14/20 13:59 01/06/20 14:00 Valproic Acid (Depakene) 500 mg EVERY 12 HOURS NG 01/05/20 21:00 01/17/20 23:14 01/06/20 09:11 Sukhjinder Howell M.D. January 06, 2020 20:38
[2020-01-06] MEDS: Atorvastatin 20mg tab NG SCH (21:46)
[2020-01-06] MEDS: Acetaminophen 650mg/20.3ml NG PRN (21:47)
[2020-01-07] VITALS: BP 142/72
[2020-01-07] MEDS: Aztreonam Inj 1 GM in D5W 55 ML IVPB SCH ×3 (00:46→15:25)
[2020-01-07] MEDS: Acetaminophen 650mg/20.3ml NG PRN (02:46)
[2020-01-07 04:00] VITALS: BP 116/55
[2020-01-07] MEDS: Captopril 12.5mg tab NG SCH ×3 (05:46→21:20)
[2020-01-07 08:00] VITALS: BP 120/56
--- NOTE | 2020-01-07 09:11 | Pulmonology Progress Note ---
Marge Gutierrez WIGS SALESPERSON 01/07/20 0911: Subjective ROS Limited/Unobtainable: Yes Interval Events: Allergies: Coded Allergies: MEMANTINE (Unverified Allergy, Unknown, 12/15/19) SERTRALINE (Unverified Allergy, Unknown, 12/15/19) Subjective leukocytosis with some trend up 01/05 labs pending for this am low grade fever 100.4 last night, currently afebrile pulse ox stable on RA SARS- CoV -2 by PCR 12/21 and 12/24 not detected s/p EGF and PEG / tolerates TF Objective Last 24 Hour Vital Signs Date Time Temp Pulse Resp B/P (MAP) Pulse Ox O2 Delivery O2 Flow Rate FiO2 01/07/20 05:46 116/55 01/07/20 04:00 98.6 78 24 116/55 (75) 99 01/07/20 03:16 98.6 01/07/20 00:00 100.4 66 24 142/72 (95) 95 01/06/20 21:46 140/82 01/06/20 21:00 Room Air 01/06/20 20:00 100.4 87 24 140/82 (101) 95 01/06/20 16:00 97.7 98 18 119/70 (86) 97 01/06/20 14:40 98.1 71 22 120/67 (84) 97 01/06/20 14:35 120/71 01/06/20 14:00 120/67 01/06/20 12:00 100.4 86 22 120/71 (87) 96 Intake and Output 01/06/20 01/07/20 19:00 07:00 Intake Total 1140 ml 1130 ml Output Total 400 ml 400 ml Balance 740 ml 730 ml Intake Free Water 200 ml 300 ml IV Total 220 ml 110 ml Tube Feeding 720 ml 720 ml Output Urine Total 400 ml 400 ml # Voids 2 # Bowel Movements 1 Objective General Appearance: WD/WN, in no acute distress elderly AA female HEENT: normocephalic, atraumatic, anicteric, mucous membranes moist, PERRL, NGT Respiratory/Chest: BS overall clear Cardiovascular: normal peripheral pulses, normal rate, Abdomen: normal bowel sounds, soft, non tender, , G tube with TF infusing, site clean, abd binder on Genitourinary: normal external genitalia Extremities: no cyanosis, no clubbing Skin: no rash, no lesions, no ulcers 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: 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 grossly normal, open eyes spontaneously but very poorly responsive Lymphatic: no neck adenopathy, no groin adenopathy Musculoskeletal: muscle atrophy, no effusion Microbiology Date/Time Source Procedure Growth Status 01/04/20 20:45 Stool Clostridium difficile Toxin Assay - Final Complete Current Medications Medications (Trade) Dose Ordered Sig/Ovi Route PRN Reason Start Time Stop Time Status Last Admin Dose Admin Acetaminophen (Tylenol) 650 mg Q4H PRN NG Temp >100.5 01/05/20 12:16 02/04/20 12:15 01/07/20 02:46 Aspirin (ASA) 81 mg DAILY NG 01/06/20 09:00 02/02/20 08:59 01/06/20 09:10 Atorvastatin Calcium (Lipitor) 20 mg BEDTIME NG 01/05/20 21:00 03/18/20 20:59 01/06/20 21:46 Aztreonam 1 gm/ Dextrose 55 ml @ 110 mls/hr Q8H IVPB 01/05/20 16:00 01/12/20 00:00 01/07/20 00:46 Captopril (Capoten) 6.25 mg EVERY 8 HOURS NG 01/05/20 14:00 01/24/20 20:59 01/07/20 05:46 Folic Acid (Folate) 2 mg DAILY NG 01/06/20 09:00 01/29/20 11:59 01/06/20 09:17 Heparin Sodium (Porcine) (Heparin 5000 units/ml) 5,000 units EVERY 12 HOURS SUBQ 01/05/20 21:00 02/02/20 20:59 01/06/20 21:48 Lansoprazole (Prevacid) 30 mg BID NG 01/05/20 18:00 01/28/20 17:59 01/06/20 18:01 Nitroglycerin (Ntg) 1 patch Q24H TDERMAL 01/05/20 14:00 01/14/20 13:59 01/06/20 14:00 Valproic Acid (Depakene) 500 mg EVERY 12 HOURS NG 01/05/20 21:00 01/17/20 23:14 01/06/20 21:46 Assessment/Plan Assessment/Plan PROBLEMS Confirmed COVID-19 virus infection Viral pneumonia Electrolyte imbalance NSTEMI (non-ST elevated myocardial infarction) Encephalopathy Dehydration ROSARIO (acute kidney injury) Staphylococcus epidermidis bacteremia Anemia ASSESSMENT Probably sepsis ( POA, with leukocytosis, lactic acidosis, evidence of infection ) Confirmed CoVID 19 infection Acute hypoxemic respiratory failure-resolved S epidermis bacteremia New leukocytosis with fevers, Proteus UTI Acute renal failure - RESOLVED Severe dehydration - IMPROVED Hypernatremia indicative of free water depletion Hypercalcemia likely due to dehydration Elevated hemoglobin likely secondary to hemoconcentration, now anemia Elevated troponin/NSTEMI Poor p.o. intake / failure to thrive Dementia Hypertension Generalized anxiety disorder Dysphagia , s/p EGD and PEG / Anemia of chronic disease Folate deficiency PLAN OF CARE * COVID-19 isolation status, confirmed 12/14, * repeat COVID 12/21- and 12/24 NGT -> off isolation * on [facility] floor now * monitor oxygenation closely, on RA or only on 1-2L nasal cannula * CXR prn only if worsening symptoms, CXR 12/16 clear lungs * fup CXR 12/25 done , given mild leukocytosis -no acute findings * last CRP 16.1 (up from previous), LDH 306 * worsening leukocytosis, fevers, recultured 12/31, fup with cx: UA + pyuria, UCX- GNB ; BCX 01/01 -NGTD * CXR 01/01 No focal consolidative process or pleural effusions, not likely PNA, leuk probably due to UTI * repat CXR this am ( fevers, cough) * also check stool C dif -NGT 01/03 * Vanco per ID, needs 2 wks for Staph epidermidis ( repeated BCX 12/20 still + with Staph epidermidis 12) -completed ; repeated BCX 01/01 NGT * discussed with ID Dr Howell - Paulinesytom added for GN coverage 01/01, F/c changed 12/29 * UCX + Proteus, Zosyn changed to Aztreonam per ID x 10 days * Completed 5 days of Plaquenil * s/p IVF , nephro on board * Monitor electrolytes and renal parameters * TTE per cardio * on a/PLT therapy with ASA, statin , [facility] for afterload reduction * NPO, NGTF's, 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 , , strict aspiration precautions, unable to participate in swallow eval * Cont Depakote 500 mg bid from SNF * DVT ppx: heparin SQ * Anemia w/up c/w ACD and folate deficiency, started on folate replacement * stool OB negative * monitor HH with goal to keep Hgb above 7 * Full Code per prior documented ECP notes * Dr Toledo spoke with deidra Milton 12/27 ([phone]) and discussed further goals of care, she will need to discuss with other family members and will get back to us: either PEG placement or palliative care * awaiting for family decision, daughter decided to continue Full code and wants G tube * GI on board now, * s/p EGD and PEG /, * asp precautions, GTF as per GI recs, tolerates Notes Reviewed: cardio, renal, ID Discussed with: nurses, case discussed and evaluated by supervising physician Boby Toledo MD 01/07/20 1453: Subjective Allergies: Coded Allergies: MEMANTINE (Unverified Allergy, Unknown, 12/15/19) SERTRALINE (Unverified Allergy, Unknown, 12/15/19) Assessment/Plan Assessment/Plan Patient seen and examined with WIGS SALESPERSON. Agree with A&P above as it reflects our joint deliberations. FFWU, Abx, TF's, dispo planning, DVT PPx Marge Gutierrez WIGS SALESPERSON January 07, 2020 09:11 Boby Toledo MD January 07, 2020 14:53
[2020-01-07] MEDS: Aspirin Baby 81mg NG SCH (09:20)
[2020-01-07] MEDS: Valproic Acid 250mg/5ml Liquid NG SCH ×2 (09:20→21:21)
[2020-01-07] MEDS: Heparin 5000 units/ml inj SUBQ SCH ×2 (09:21→21:19)
--- NOTE | 2020-01-07 10:44 | General Progress Note ---
Assessment/Plan Status: stable, unchanged Assessment/Plan: 1. The patient is an 89-year-old female with current medical problem as COVID positive pneumonia resolving. 2. Diabetes. 3. Anemia. 4. Abnormal liver function tests. 5. Sepsis. 6. Dysphagia. 7. Non-ST elevation myocardial infarction. 8. Dementia. 9. Encephalopathy. 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 s/p GT placement GTF GT care monitor for residuals Subjective Allergies: Coded Allergies: MEMANTINE (Unverified Allergy, Unknown, 12/15/19) SERTRALINE (Unverified Allergy, Unknown, 12/15/19) Objective Last 24 Hour Vital Signs Date Time Temp Pulse Resp B/P (MAP) Pulse Ox O2 Delivery O2 Flow Rate FiO2 01/07/20 05:46 116/55 01/07/20 04:00 98.6 78 24 116/55 (75) 99 01/07/20 03:16 98.6 01/07/20 00:00 100.4 66 24 142/72 (95) 95 01/06/20 21:46 140/82 01/06/20 21:00 Room Air 01/06/20 20:00 100.4 87 24 140/82 (101) 95 01/06/20 16:00 97.7 98 18 119/70 (86) 97 01/06/20 14:40 98.1 71 22 120/67 (84) 97 01/06/20 14:35 120/71 01/06/20 14:00 120/67 01/06/20 12:00 100.4 86 22 120/71 (87) 96 Intake and Output 01/06/20 01/07/20 19:00 07:00 Intake Total 1140 ml 1130 ml Output Total 400 ml 400 ml Balance 740 ml 730 ml Intake Free Water 200 ml 300 ml IV Total 220 ml 110 ml Tube Feeding 720 ml 720 ml Output Urine Total 400 ml 400 ml # Voids 2 # Bowel Movements 1 Height (Feet): 5 Height (Inches): 0.00 Weight (Pounds): 154 General Appearance: no apparent distress EENT: normal ENT inspection Neck: supple Cardiovascular: normal rate Respiratory/Chest: decreased breath sounds Abdomen: normal bowel sounds, non tender, soft Extremities: non-tender Sven Villalta MD January 07, 2020 10:44
[2020-01-07 12:00] VITALS: BP 115/53
--- NOTE | 2020-01-07 12:49 | Nephrology Progress Note ---
Assessment/Plan Problem List: (1) ROSARIO (acute kidney injury) (2) Dehydration (3) Electrolyte imbalance (4) NSTEMI (non-ST elevated myocardial infarction) (5) COVID-19 virus infection (6) Anemia Assessment Acute renal failure Severe dehydration Hypernatremia indicative of free water depletion Hypercalcemia likely due to dehydration Elevated hemoglobin likely secondary to hemoconcentration Elevated troponin Poor p.o. intake / failure to thrive Dementia Hypertension Exposure to COVID-19 Plan Covid19 test positive Received PEG today January 04 WBCs carlene over 15,000 Stable from renal standpoint to view Continue per ID advice Previously: Discontinue potassium chloride p.o. IV Protonix to Prevacid via NG tube At the folic acid to medication Watch declining hemoglobin Aspirin 2D echocardiogram, results still pending Nitropaste Avoid nephrotoxic's Monitor renal parameters Monitor hemoglobin hematocrit Avoid mind altering medication in view of severe lethargy Per orders Subjective ROS Limited/Unobtainable: No Constitutional: Reports: malaise, weakness Objective Objective Last 24 Hour Vital Signs Date Time Temp Pulse Resp B/P (MAP) Pulse Ox O2 Delivery O2 Flow Rate FiO2 01/07/20 05:46 116/55 01/07/20 04:00 98.6 78 24 116/55 (75) 99 01/07/20 03:16 98.6 01/07/20 00:00 100.4 66 24 142/72 (95) 95 01/06/20 21:46 140/82 01/06/20 21:00 Room Air 01/06/20 20:00 100.4 87 24 140/82 (101) 95 01/06/20 16:00 97.7 98 18 119/70 (86) 97 01/06/20 14:40 98.1 71 22 120/67 (84) 97 01/06/20 14:35 120/71 01/06/20 14:00 120/67 Intake and Output 01/06/20 01/07/20 19:00 07:00 Intake Total 1140 ml 1130 ml Output Total 400 ml 400 ml Balance 740 ml 730 ml Intake Free Water 200 ml 300 ml IV Total 220 ml 110 ml Tube Feeding 720 ml 720 ml Output Urine Total 400 ml 400 ml # Voids 2 # Bowel Movements 1 No labs today Height (Feet): 5 Height (Inches): 0.00 Weight (Pounds): 154 Cardiovascular: normal rate Respiratory/Chest: decreased breath sounds Abdomen: soft Objective No change Robert Foreman MD January 07, 2020 12:49
--- NOTE | 2020-01-07 13:11 | Diagnostic Imaging Report ---
Indication: Shortness of breath Technique: One view of the chest Comparison: 01/02/2020 Findings: Less optimal inspiration currently, resulting in slight crowding of the bronchovascular markings. Interim removal of nasogastric tube. There is some central bronchial wall thickening, probably on the basis of senescent changes. The heart is borderline enlarged. No definite acute infiltrates, effusions, congestion, or significant interim change. Impression: No definite acute process. Findings as noted
--- NOTE | 2020-01-07 14:34 | Surgery Progress Note ---
Surgery Progress Note Subjective Additional Comments persistent leukocytosis h/h stable exam unchanged cxr stable micro reviewed blood cx neg, uti on abx , c diff neg Objective Last 24 Hour Vital Signs Date Time Temp Pulse Resp B/P (MAP) Pulse Ox O2 Delivery O2 Flow Rate FiO2 01/07/20 12:00 98.1 73 20 115/53 (73) 96 01/07/20 08:00 96.8 74 20 120/56 (77) 98 01/07/20 05:46 116/55 01/07/20 04:00 98.6 78 24 116/55 (75) 99 01/07/20 03:16 98.6 01/07/20 00:00 100.4 66 24 142/72 (95) 95 01/06/20 21:46 140/82 01/06/20 21:00 Room Air 01/06/20 20:00 100.4 87 24 140/82 (101) 95 01/06/20 16:00 97.7 98 18 119/70 (86) 97 01/06/20 14:40 98.1 71 22 120/67 (84) 97 01/06/20 14:35 120/71 I&O Intake and Output 01/06/20 01/07/20 19:00 07:00 Intake Total 1140 ml 1130 ml Output Total 400 ml 400 ml Balance 740 ml 730 ml Intake Free Water 200 ml 300 ml IV Total 220 ml 110 ml Tube Feeding 720 ml 720 ml Output Urine Total 400 ml 400 ml # Voids 2 # Bowel Movements 1 Dressing: other Wound: other Drains: other Cardiovascular: RSR Respiratory: clear, decreased breath sounds Abdomen: soft, non-tender, present bowel sounds Extremities: no tenderness, no cyanosis Plan Problems: (1) Leukocytosis Assessment & Plan: Acute leukocytosis. Microbiology identified staph E. On antibiotics per infectious disease. WBC trending down. Complete examination identified no external source of potential staph infection in the blood bacteremia DTI noted Continue antibiotics as per infectious disease Trend labs persistent wbc micro reviewed as above We will follow with recommendations (2) Sepsis Assessment & Plan: Patient CO VID Pneumonia improving Recent acute leukocytosis trending down Course of hydroxy completed stable Improving Continue current care plan Abnormal LFTs identified Hold on abdominal ultrasound for now nutritional optimization turn q2h off load pressures cont tube feeds at goal DAILY ESTIMATED NEEDS: Needs based on ROSARIO, Cardiac/ 52kg 25-30 kcals/kg 3244-3173 total kcals 1-1.2 g protein/kg 52-62 g total protein 25-30 mL/kg 6512-9051 total fluid mLs NUTRITION DIAGNOSIS: Swallowing difficulty R/T dysphagia, AMS, lethargy as evidenced by NPO at this time, 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 CURRENT TF:NPO ENTERAL NUTRITION RECOMMENDATIONS: Jevity 1.2 @ 50ml/hr x 24 hrs to provide 1200ml, 1440kcal, 66g prot, 968ml free water * S/p PEG placement, resume previous TF -> initiate @ 20ml/hr x 6 hrs, advance 10ml q 4-6 hrs as tolerated to goal rate * HOB over 30 degrees * Water flush of 150ml q 8 hrs --- W/ consistently elev BGs, rec Glucerna 1.5 (Glucerna 1.2 is out of stock) @ goal rate of 40ml/hr x 24 hrs to provide 960ml, 1440kcal, 79g prot, 729ml free water. ADDITIONAL RECOMMENDATIONS: * Calibrated bedscale wt for accurate CBW- discrepancy wt in EMR noted per SNF record: HT=60", MZ=143.4lbs (December 2019) * Monitor for possible PEG placement- schedule for 5/4 * Monitor BGs, need for carb controlled TF * Monitor lytes, replete as needed (3) Staphylococcus epidermidis bacteremia Assessment & Plan: As above Andi Valera January 07, 2020 14:34
[2020-01-07] MEDS: Nitroglycerin Patch 0.4mg TDERMAL SCH (15:19)
[2020-01-07 16:00] VITALS: BP 142/64
[2020-01-07 19:14] LABS: ANION GAP 5 mmol/L (5-15); BASOPHILS % (AUTO) 1.5 % (0.0-2.0); BLOOD UREA NITROGEN 19 mg/dL (7-18); CALCIUM 8.5 MG/DL (8.5-10.1); CARBON DIOXIDE 33 MMOL/L (21-32); CHLORIDE 104 MMOL/L (98-107); CREATININE 0.5 MG/DL (0.55-1.30); EOSINOPHILS % (AUTO) 0.3 % (0.0-3.0); HEMOGLOBIN 9.4 G/DL (12.0-16.0); LYMPHOCYTES % (AUTO) 20.1 % (20.0-45.0); MEAN CORPUSCULAR VOLUME 100 FL (80-99); MONOCYTES % (AUTO) 8.4 % (1.0-10.0); NEUTROPHILS % (AUTO) 69.7 % (45.0-75.0); PLATELET COUNT 711 K/UL (150-450); POTASSIUM 4.5 MMOL/L (3.5-5.1); RED BLOOD COUNT 3.01 M/UL (4.20-5.40); RED CELL DISTRIBUTION WIDTH 14.7 % (11.6-14.8); SODIUM 142 MMOL/L (136-145); WHITE BLOOD COUNT 13.7 K/UL (4.8-10.8)
[2020-01-07 20:00] VITALS: BP 131/58
--- NOTE | 2020-01-07 21:20 | Infectious Diseases Prog Note ---
Assessment/Plan Problems: (1) Leukocytosis Assessment & Plan: suspect post OP and due to CAUTI with Proteus Mirabilis , on aztreonam to cover for CAUTI for 10 days , repeated Blood culture x 2 IS NEGATIVE , CXR no acute infiltrates or effusion , may need to change her ramos catheter (2) Catheter-associated urinary tract infection Assessment & Plan: with PROTEUS MIRABILIS , already aztreonam for 10 days , ramos was changed on 12/29 as per the nurse (3) Sepsis Assessment & Plan: with Staphylococcus epidermidis grew out of four bottles from both sets, source ? S/P vancomycin for two weeks total , repeated blood culture grew the same organism but from one bottle only most likely contaminants. EOT 01/02/20 (4) COVID-19 virus infection Assessment & Plan: may remove from enhanced droplet isolation, S/P hydroxychloroquin with zinc and vitamin C for five days total.repeated PCR test times two so far is negative. (5) Viral pneumonia Assessment & Plan: due to COVID 19, S/P hydroxychloroquine , with zinc and vitamin C for five days, Repeated PCR test is negative (6) ROSARIO (acute kidney injury) Assessment & Plan: suspect due to dehydration and poor oral intake improving monitor renal function avoid nephrotoxic's (7) NSTEMI (non-ST elevated myocardial infarction) Assessment & Plan: could be due to COVID 19, cardiology is following monitor troponin level Subjective ROS Limited/Unobtainable: Yes Allergies: Coded Allergies: MEMANTINE (Unverified Allergy, Unknown, 12/15/19) SERTRALINE (Unverified Allergy, Unknown, 12/15/19) Subjective she was laying in bed, comfortable, started on tube feeding , responsive to verbal commands, no fever today, has dry cough but no SOB, still confused , receiving meds though PEG , no agitation , no diarrhea Objective Vital Signs Last 24 Hour Vital Signs Date Time Temp Pulse Resp B/P (MAP) Pulse Ox O2 Delivery O2 Flow Rate FiO2 01/07/20 16:00 97.7 80 20 142/64 (90) 99 01/07/20 15:19 115/53 01/07/20 15:19 115/53 01/07/20 12:00 98.1 73 20 115/53 (73) 96 01/07/20 09:00 Room Air 01/07/20 08:00 96.8 74 20 120/56 (77) 98 01/07/20 05:46 116/55 01/07/20 04:00 98.6 78 24 116/55 (75) 99 01/07/20 03:16 98.6 01/07/20 00:00 100.4 66 24 142/72 (95) 95 01/06/20 21:46 140/82 Height (Feet): 5 Height (Inches): 0.00 Weight (Pounds): 154 General Appearance: WD/WN, no acute distress, cachetic HEENT: normocephalic, atraumatic, anicteric, mucous membranes moist, PERRL Respiratory/Chest: chest wall non-tender, normal breath sounds, no respiratory distress, no accessory muscle use, decreased breath sounds Cardiovascular: normal peripheral pulses, normal rate, regular rhythm, no gallop/murmur, no JVD Abdomen: normal bowel sounds, soft, non tender, no organomegaly, non distended , no mass, no scars Genitourinary: normal external genitalia Extremities: no cyanosis, no clubbing Skin: no rash, no lesions 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: responsive Lymphatic: no neck adenopathy, no groin adenopathy Musculoskeletal: normal muscle bulk Laboratory Tests Test 01/07/20 18:40 White Blood Count 13.7 K/UL (4.8-10.8) H Red Blood Count 3.01 M/UL (4.20-5.40) L Hemoglobin 9.4 G/DL (12.0-16.0) L Hematocrit 30.0 % (37.0-47.0) L Mean Corpuscular Volume 100 FL (80-99) H Mean Corpuscular Hemoglobin 31.3 PG (27.0-31.0) H Mean Corpuscular Hemoglobin Concent 31.4 G/DL (32.0-36.0) L Red Cell Distribution Width 14.7 % (11.6-14.8) Platelet Count 711 K/UL (150-450) H Mean Platelet Volume 7.0 FL (6.5-10.1) Neutrophils (%) (Auto) 69.7 % (45.0-75.0) Lymphocytes (%) (Auto) 20.1 % (20.0-45.0) Monocytes (%) (Auto) 8.4 % (1.0-10.0) Eosinophils (%) (Auto) 0.3 % (0.0-3.0) Basophils (%) (Auto) 1.5 % (0.0-2.0) Sodium Level 142 MMOL/L (136-145) Potassium Level 4.5 MMOL/L (3.5-5.1) Chloride Level 104 MMOL/L (98-107) Carbon Dioxide Level 33 MMOL/L (21-32) H Anion Gap 5 mmol/L (5-15) Blood Urea Nitrogen 19 mg/dL (7-18) H Creatinine 0.5 MG/DL (0.55-1.30) L Estimat Glomerular Filtration Rate > 60 mL/min (>60) Glucose Level 103 MG/DL (74-106) Calcium Level 8.5 MG/DL (8.5-10.1) Current Medications Medications (Trade) Dose Ordered Sig/Ovi Route PRN Reason Start Time Stop Time Status Last Admin Dose Admin Acetaminophen (Tylenol) 650 mg Q4H PRN NG Temp >100.5 01/05/20 12:16 02/04/20 12:15 01/07/20 02:46 Aspirin (ASA) 81 mg DAILY NG 01/06/20 09:00 02/02/20 08:59 01/07/20 09:20 Atorvastatin Calcium (Lipitor) 20 mg BEDTIME NG 01/05/20 21:00 03/18/20 20:59 01/06/20 21:46 Aztreonam 1 gm/ Dextrose 55 ml @ 110 mls/hr Q8H IVPB 01/05/20 16:00 01/12/20 00:00 01/07/20 15:25 Captopril (Capoten) 6.25 mg EVERY 8 HOURS NG 01/05/20 14:00 01/24/20 20:59 01/07/20 15:19 Folic Acid (Folate) 2 mg DAILY NG 01/06/20 09:00 01/29/20 11:59 01/07/20 09:20 Heparin Sodium (Porcine) (Heparin 5000 units/ml) 5,000 units EVERY 12 HOURS SUBQ 01/05/20 21:00 02/02/20 20:59 01/07/20 09:21 Lansoprazole (Prevacid) 30 mg BID NG 01/05/20 18:00 01/28/20 17:59 01/07/20 18:39 Nitroglycerin (Ntg) 1 patch Q24H TDERMAL 01/05/20 14:00 01/14/20 13:59 01/07/20 15:19 Valproic Acid (Depakene) 500 mg EVERY 12 HOURS NG 01/05/20 21:00 01/17/20 23:14 01/07/20 09:20 Sukhjinder Howell M.D. January 07, 2020 21:20
[2020-01-07] MEDS: Atorvastatin 20mg tab NG SCH (21:21)
[2020-01-08] VITALS: BP 128/60
[2020-01-08] MEDS: Aztreonam Inj 1 GM in D5W 55 ML IVPB SCH ×4 (00:27→23:54)
[2020-01-08 04:00] VITALS: BP 102/49
[2020-01-08] MEDS: Captopril 12.5mg tab NG SCH ×3 (05:54→21:21)
[2020-01-08] MEDS: Acetaminophen 650mg/20.3ml NG PRN ×2 (06:01→17:42)
[2020-01-08 07:26] LABS: ANION GAP 3 mmol/L (5-15); BLOOD UREA NITROGEN 18 mg/dL (7-18); CALCIUM 8.6 MG/DL (8.5-10.1); CARBON DIOXIDE 31 MMOL/L (21-32); CHLORIDE 105 MMOL/L (98-107); CREATININE 0.7 MG/DL (0.55-1.30); POTASSIUM 4.1 MMOL/L (3.5-5.1); SODIUM 139 MMOL/L (136-145)
[2020-01-08 07:32] LABS: BASOPHILS % (AUTO) 0.8 % (0.0-2.0); EOSINOPHILS % (AUTO) 0.5 % (0.0-3.0); HEMATOCRIT 27.8 % (37.0-47.0); HEMOGLOBIN 9.6 G/DL (12.0-16.0); LYMPHOCYTES % (AUTO) 20.8 % (20.0-45.0); MEAN CORPUSCULAR VOLUME 93 FL (80-99); MONOCYTES % (AUTO) 5.4 % (1.0-10.0); NEUTROPHILS % (AUTO) 72.5 % (45.0-75.0); PLATELET COUNT 704 K/UL (150-450); RED BLOOD COUNT 2.98 M/UL (4.20-5.40); RED CELL DISTRIBUTION WIDTH 13.1 % (11.6-14.8); WHITE BLOOD COUNT 13.4 K/UL (4.8-10.8)
[2020-01-08 08:00] VITALS: BP 113/46
[2020-01-08] MEDS: Aspirin Baby 81mg NG SCH (08:14)
[2020-01-08] MEDS: Valproic Acid 250mg/5ml Liquid NG SCH ×2 (08:14→21:21)
[2020-01-08] MEDS: Heparin 5000 units/ml inj SUBQ SCH ×2 (08:14→21:26)
--- NOTE | 2020-01-08 09:13 | Pulmonology Progress Note ---
Marge Gutierrez HIGH LIGHTER 01/08/20 0913: Subjective ROS Limited/Unobtainable: Yes Interval Events: Allergies: Coded Allergies: MEMANTINE (Unverified Allergy, Unknown, 12/15/19) SERTRALINE (Unverified Allergy, Unknown, 12/15/19) Subjective leukocytosis persists, fever 100.4 at MN, currently afebrile pulse ox stable on RA SARS- CoV -2 by PCR 12/21 and 12/24 not detected s/p EGF and PEG 6 tolerates TF CXR 01/06 no definite acute process Objective Last 24 Hour Vital Signs Date Time Temp Pulse Resp B/P (MAP) Pulse Ox O2 Delivery O2 Flow Rate FiO2 01/08/20 05:54 102/49 01/08/20 04:00 98.0 81 21 102/49 (66) 96 01/08/20 00:00 97.9 78 20 128/60 (82) 94 01/07/20 21:20 131/58 01/07/20 21:00 Room Air 01/07/20 20:00 98.6 81 21 131/58 (82) 96 01/07/20 16:00 97.7 80 20 142/64 (90) 99 01/07/20 15:19 115/53 01/07/20 15:19 115/53 01/07/20 12:00 98.1 73 20 115/53 (73) 96 Intake and Output 01/07/20 01/08/20 19:00 07:00 Intake Total 1080 ml 55 ml Output Total 800 ml 750 ml Balance 280 ml -695 ml Intake Free Water 360 ml IV Total 55 ml Tube Feeding 720 ml Output Urine Total 800 ml 750 ml # Voids 2 1 # Bowel Movements 1 Objective General Appearance: WD/WN, in no acute distress elderly AA female HEENT: normocephalic, atraumatic, anicteric, mucous membranes moist, PERRL, NGT Respiratory/Chest: BS overall clear Cardiovascular: normal peripheral pulses, normal rate, Abdomen: normal bowel sounds, soft, non tender, , G tube with TF infusing, site clean, abd binder on Genitourinary: normal external genitalia Extremities: no cyanosis, no clubbing Skin: no rash, no lesions, no ulcers 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, open eyes spontaneously but very poorly responsive Lymphatic: no neck adenopathy, no groin adenopathy Musculoskeletal: muscle atrophy, no effusion General Appearance: cachetic Laboratory Tests 01/07/20 18:40: White Blood Count 13.7H, Red Blood Count 3.01L, Hemoglobin 9.4L, Hematocrit 30.0L, Mean Corpuscular Volume 100H, Mean Corpuscular Hemoglobin 31.3H, Mean Corpuscular Hemoglobin Concent 31.4L, Red Cell Distribution Width 14.7, Platelet Count 711H, Mean Platelet Volume 7.0, Neutrophils (%) (Auto) 69.7, Lymphocytes (%) (Auto) 20.1, Monocytes (%) (Auto) 8.4, Eosinophils (%) (Auto) 0.3, Basophils (%) (Auto) 1.5, Sodium Level 142, Potassium Level 4.5, Chloride Level 104, Carbon Dioxide Level 33H, Anion Gap 5, Blood Urea Nitrogen 19H, Creatinine 0.5L, Estimat Glomerular Filtration Rate > 60, Glucose Level 103, Calcium Level 8.5 01/08/20 06:35: White Blood Count 13.4H, Red Blood Count 2.98L, Hemoglobin 9.6L, Hematocrit 27.8L, Mean Corpuscular Volume 93, Mean Corpuscular Hemoglobin 32.1H, Mean Corpuscular Hemoglobin Concent 34.5, Red Cell Distribution Width 13.1, Platelet Count 704H, Mean Platelet Volume 5.6L, Neutrophils (%) (Auto) 72.5, Lymphocytes (%) (Auto) 20.8, Monocytes (%) (Auto) 5.4, Eosinophils (%) (Auto) 0.5, Basophils (%) (Auto) 0.8, Sodium Level 139, Potassium Level 4.1, Chloride Level 105, Carbon Dioxide Level 31, Anion Gap 3L, Blood Urea Nitrogen 18, Creatinine 0.7, Estimat Glomerular Filtration Rate > 60, Glucose Level 130H, Calcium Level 8.6 Current Medications Medications (Trade) Dose Ordered Sig/Ovi Route PRN Reason Start Time Stop Time Status Last Admin Dose Admin Acetaminophen (Tylenol) 650 mg Q4H PRN NG Temp >100.5 01/05/20 12:16 02/04/20 12:15 01/08/20 06:01 Aspirin (ASA) 81 mg DAILY NG 01/06/20 09:00 02/02/20 08:59 01/08/20 08:14 Atorvastatin Calcium (Lipitor) 20 mg BEDTIME NG 01/05/20 21:00 03/18/20 20:59 01/07/20 21:21 Aztreonam 1 gm/ Dextrose 55 ml @ 110 mls/hr Q8H IVPB 01/05/20 16:00 01/12/20 00:00 01/08/20 08:13 Captopril (Capoten) 6.25 mg EVERY 8 HOURS NG 01/05/20 14:00 01/24/20 20:59 01/08/20 05:54 Folic Acid (Folate) 2 mg DAILY NG 01/06/20 09:00 01/29/20 11:59 01/08/20 08:14 Heparin Sodium (Porcine) (Heparin 5000 units/ml) 5,000 units EVERY 12 HOURS SUBQ 01/05/20 21:00 02/02/20 20:59 01/08/20 08:14 Lansoprazole (Prevacid) 30 mg BID NG 01/05/20 18:00 01/28/20 17:59 01/08/20 08:14 Nitroglycerin (Ntg) 1 patch Q24H TDERMAL 01/05/20 14:00 01/14/20 13:59 01/07/20 15:19 Valproic Acid (Depakene) 500 mg EVERY 12 HOURS NG 01/05/20 21:00 01/17/20 23:14 01/08/20 08:14 Assessment/Plan Assessment/Plan PROBLEMS Confirmed COVID-19 virus infection Viral pneumonia Electrolyte imbalance NSTEMI (non-ST elevated myocardial infarction) Encephalopathy Dehydration ROSARIO (acute kidney injury) Staphylococcus epidermidis bacteremia Anemia Persistent leukocytosis with intermittent fevers ASSESSMENT Probably sepsis ( POA, with leukocytosis, lactic acidosis, evidence of infection ) Confirmed CoVID 19 infection Acute hypoxemic respiratory failure-resolved S epidermis bacteremia New leukocytosis with fevers, Proteus UTI Acute renal failure - RESOLVED Severe dehydration - IMPROVED Hypernatremia indicative of free water depletion Hypercalcemia likely due to dehydration Elevated hemoglobin likely secondary to hemoconcentration, now anemia Elevated troponin/NSTEMI Poor p.o. intake / failure to thrive Dementia Hypertension Generalized anxiety disorder Dysphagia , s/p EGD and PEG 01/04 Anemia of chronic disease Folate deficiency PLAN OF CARE * COVID-19 isolation status, confirmed 12/14, * repeat COVID 12/21- and 12/24 NGT -> off isolation now * on [facility] floor now * monitor oxygenation closely, on RA or only on 1-2L nasal cannula * CXR prn only if worsening symptoms, CXR 12/16 clear lungs * fup CXR 12/25 done , given mild leukocytosis -no acute findings * last CRP 16.1 (up from previous), LDH 306 * worsening leukocytosis, fevers, recultured 12/31, fup with cx: UA + pyuria, UCX- GNB ; BCX 01/01 -NGTD * CXR 01/01 No focal consolidative process or pleural effusions, not likely PNA, leuk probably due to UTI * repeat CXR ( fevers, cough) * also check stool C dif -NGT 01/03 * Vanco per ID, needs 2 wks for Staph epidermidis ( repeated BCX 12/20 still + with Staph epidermidis 09/02) -completed ; repeated BCX 01/01 NGT * discussed with ID Dr Howell - Zosyn added for GN coverage 01/01, F/c changed 12/29 * UCX + Proteus, Zosyn changed to Aztreonam per ID x 10 days * stool C dif 01/03 NGT * CXR 01/06 no acute process * unclear cause of persistent leukocytosis and intermittent fevers- per ID recs * Completed 5 days of Plaquenil * s/p IVF , nephro on board * Monitor electrolytes and renal parameters * TTE per cardio * on a/PLT therapy with ASA, statin , [facility] for afterload reduction * NPO, NGTF's, VASC TECH eval , , strict aspiration precautions, unable to participate in swallow eval * Cont Depakote 500 mg bid from SNF * DVT ppx: heparin SQ * Anemia w/up c/w ACD and folate deficiency, started on folate replacement * stool OB negative * monitor HH with goal to keep Hgb above 7 * Full Code per prior documented ECP notes * Dr Toledo spoke with deidra Milton 12/27 ([phone]) and discussed further goals of care, she will need to discuss with other family members and will get back to us: either PEG placement or palliative care * awaiting for family decision, daughter decided to continue Full code and wants G tube * GI on board now, * s/p EGD and PEG 5/6, * asp precautions, GTF as per GI recs, tolerates Notes Reviewed: cardio, renal, ID Discussed with: nurses, case discussed and evaluated by supervising physician Boby Toledo MD 01/10/20 1254: Subjective Allergies: Coded Allergies: MEMANTINE (Unverified Allergy, Unknown, 12/15/19) SERTRALINE (Unverified Allergy, Unknown, 12/15/19) Assessment/Plan Assessment/Plan Patient seen and examined with [facility]. Agree with above A&P as it reflects our joint deliberations. Marge Gutierrez NP January 08, 2020 09:13 Boby Toledo MD January 10, 2020 12:54
[2020-01-08 12:00] VITALS: BP 114/53
--- NOTE | 2020-01-08 13:10 | Nephrology Progress Note ---
Assessment/Plan Problem List: (1) ROSARIO (acute kidney injury) (2) Dehydration (3) Electrolyte imbalance (4) NSTEMI (non-ST elevated myocardial infarction) (5) COVID-19 virus infection (6) Anemia Assessment Acute renal failure Severe dehydration Hypernatremia indicative of free water depletion Hypercalcemia likely due to dehydration Elevated hemoglobin likely secondary to hemoconcentration Elevated troponin Poor p.o. intake / failure to thrive Dementia Hypertension Exposure to COVID-19 Plan Covid19 test positive Received PEG today January 04 WBCs carlene over 15,000 Stable from renal standpoint to view Continue per ID advice Previously: Discontinue potassium chloride p.o. IV Protonix to Prevacid via NG tube At the folic acid to medication Watch declining hemoglobin Aspirin 2D echocardiogram, results still pending Nitropaste Avoid nephrotoxic's Monitor renal parameters Monitor hemoglobin hematocrit Avoid mind altering medication in view of severe lethargy Per orders Subjective ROS Limited/Unobtainable: No Constitutional: Reports: malaise Objective Objective Last 24 Hour Vital Signs Date Time Temp Pulse Resp B/P (MAP) Pulse Ox O2 Delivery O2 Flow Rate FiO2 01/08/20 09:00 Nasal Cannula 2.0 01/08/20 08:00 98.2 78 20 113/46 (68) 100 01/08/20 05:54 102/49 01/08/20 04:00 98.0 81 21 102/49 (66) 96 01/08/20 00:00 97.9 78 20 128/60 (82) 94 01/07/20 21:20 131/58 01/07/20 21:00 Room Air 01/07/20 20:00 98.6 81 21 131/58 (82) 96 01/07/20 16:00 97.7 80 20 142/64 (90) 99 01/07/20 15:19 115/53 01/07/20 15:19 115/53 Intake and Output 01/07/20 01/08/20 19:00 07:00 Intake Total 1080 ml 55 ml Output Total 800 ml 750 ml Balance 280 ml -695 ml Intake Free Water 360 ml IV Total 55 ml Tube Feeding 720 ml Output Urine Total 800 ml 750 ml # Voids 2 1 # Bowel Movements 1 Laboratory Tests 01/07/20 18:40: White Blood Count 13.7H, Red Blood Count 3.01L, Hemoglobin 9.4L, Hematocrit 30.0L, Mean Corpuscular Volume 100H, Mean Corpuscular Hemoglobin 31.3H, Mean Corpuscular Hemoglobin Concent 31.4L, Red Cell Distribution Width 14.7, Platelet Count 711H, Mean Platelet Volume 7.0, Neutrophils (%) (Auto) 69.7, Lymphocytes (%) (Auto) 20.1, Monocytes (%) (Auto) 8.4, Eosinophils (%) (Auto) 0.3, Basophils (%) (Auto) 1.5, Sodium Level 142, Potassium Level 4.5, Chloride Level 104, Carbon Dioxide Level 33H, Anion Gap 5, Blood Urea Nitrogen 19H, Creatinine 0.5L, Estimat Glomerular Filtration Rate > 60, Glucose Level 103, Calcium Level 8.5 01/08/20 06:35: White Blood Count 13.4H, Red Blood Count 2.98L, Hemoglobin 9.6L, Hematocrit 27.8L, Mean Corpuscular Volume 93, Mean Corpuscular Hemoglobin 32.1H, Mean Corpuscular Hemoglobin Concent 34.5, Red Cell Distribution Width 13.1, Platelet Count 704H, Mean Platelet Volume 5.6L, Neutrophils (%) (Auto) 72.5, Lymphocytes (%) (Auto) 20.8, Monocytes (%) (Auto) 5.4, Eosinophils (%) (Auto) 0.5, Basophils (%) (Auto) 0.8, Sodium Level 139, Potassium Level 4.1, Chloride Level 105, Carbon Dioxide Level 31, Anion Gap 3L, Blood Urea Nitrogen 18, Creatinine 0.7, Estimat Glomerular Filtration Rate > 60, Glucose Level 130H, Calcium Level 8.6 Height (Feet): 5 Height (Inches): 0.00 Weight (Pounds): 153 General Appearance: no apparent distress Objective No change Robert Foreman MD January 08, 2020 13:10
[2020-01-08] MEDS: Nitroglycerin Patch 0.4mg TDERMAL SCH (14:49)
[2020-01-08 16:00] VITALS: BP 126/57
--- NOTE | 2020-01-08 16:48 | GI Progress Note ---
Assessment/Plan Problems: (1) Anemia ICD Codes: D64.9 - Anemia, unspecified SNOMED: 971428520 (2) COVID-19 virus infection ICD Codes: U07.1 - COVID-19 SNOMED: 667014851 (3) Dehydration ICD Codes: E86.0 - Dehydration SNOMED: 90680754 (4) Encephalopathy ICD Codes: G93.40 - Encephalopathy, unspecified SNOMED: 91366304 Status: unchanged Status Narrative Discussed with Dr. Villalta. Assessment/Plan 1. The patient is an 89-year-old female with current medical problem as COVID positive pneumonia resolving. 2. Diabetes. 3. Anemia. 4. Abnormal liver function tests. 5. Sepsis. 6. Dysphagia. 7. Non-ST elevation myocardial infarction. 8. Dementia. 9. Encephalopathy. 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 s/p GT placement GTF GT care monitor for residuals The patient was seen and examined at bedside and all new and available data was reviewed in the patients chart. I agree with the above findings, impression and plan. (Patient seen earlier today. Signature stamp does not reflect patient encounter time.). - Sven Villalta MD Subjective Subjective limited Objective Last 24 Hour Vital Signs Date Time Temp Pulse Resp B/P (MAP) Pulse Ox O2 Delivery O2 Flow Rate FiO2 01/08/20 14:49 114/53 01/08/20 14:48 114/53 01/08/20 12:00 98.2 75 20 114/53 (73) 98 01/08/20 09:00 Nasal Cannula 2.0 01/08/20 08:00 98.2 78 20 113/46 (68) 100 01/08/20 05:54 102/49 01/08/20 04:00 98.0 81 21 102/49 (66) 96 01/08/20 00:00 97.9 78 20 128/60 (82) 94 01/07/20 21:20 131/58 01/07/20 21:00 Room Air 01/07/20 20:00 98.6 81 21 131/58 (82) 96 Intake and Output 01/07/20 01/08/20 19:00 07:00 Intake Total 1190 ml 115 ml Output Total 800 ml 750 ml Balance 390 ml -635 ml Intake Free Water 360 ml IV Total 110 ml 55 ml Tube Feeding 720 ml 60 ml Output Urine Total 800 ml 750 ml # Voids 2 1 # Bowel Movements 1 Laboratory Tests Test 01/07/20 18:40 01/08/20 06:35 White Blood Count 13.7 K/UL (4.8-10.8) H 13.4 K/UL (4.8-10.8) H Red Blood Count 3.01 M/UL (4.20-5.40) L 2.98 M/UL (4.20-5.40) L Hemoglobin 9.4 G/DL (12.0-16.0) L 9.6 G/DL (12.0-16.0) L Hematocrit 30.0 % (37.0-47.0) L 27.8 % (37.0-47.0) L Mean Corpuscular Volume 100 FL (80-99) H 93 FL (80-99) Mean Corpuscular Hemoglobin 31.3 PG (27.0-31.0) H 32.1 PG (27.0-31.0) H Mean Corpuscular Hemoglobin Concent 31.4 G/DL (32.0-36.0) L 34.5 G/DL (32.0-36.0) Red Cell Distribution Width 14.7 % (11.6-14.8) 13.1 % (11.6-14.8) Platelet Count 711 K/UL (150-450) H 704 K/UL (150-450) H Mean Platelet Volume 7.0 FL (6.5-10.1) 5.6 FL (6.5-10.1) L Neutrophils (%) (Auto) 69.7 % (45.0-75.0) 72.5 % (45.0-75.0) Lymphocytes (%) (Auto) 20.1 % (20.0-45.0) 20.8 % (20.0-45.0) Monocytes (%) (Auto) 8.4 % (1.0-10.0) 5.4 % (1.0-10.0) Eosinophils (%) (Auto) 0.3 % (0.0-3.0) 0.5 % (0.0-3.0) Basophils (%) (Auto) 1.5 % (0.0-2.0) 0.8 % (0.0-2.0) Sodium Level 142 MMOL/L (136-145) 139 MMOL/L (136-145) Potassium Level 4.5 MMOL/L (3.5-5.1) 4.1 MMOL/L (3.5-5.1) Chloride Level 104 MMOL/L (98-107) 105 MMOL/L (98-107) Carbon Dioxide Level 33 MMOL/L (21-32) H 31 MMOL/L (21-32) Anion Gap 5 mmol/L (5-15) 3 mmol/L (5-15) L Blood Urea Nitrogen 19 mg/dL (7-18) H 18 mg/dL (7-18) Creatinine 0.5 MG/DL (0.55-1.30) L 0.7 MG/DL (0.55-1.30) Estimat Glomerular Filtration Rate > 60 mL/min (>60) > 60 mL/min (>60) Glucose Level 103 MG/DL (74-106) 130 MG/DL (74-106) H Calcium Level 8.5 MG/DL (8.5-10.1) 8.6 MG/DL (8.5-10.1) Height (Feet): 5 Height (Inches): 0.00 Weight (Pounds): 153 General Appearance: no apparent distress Cardiovascular: normal rate Respiratory/Chest: normal breath sounds, no respiratory distress Abdominal Exam: normal bowel sounds, non tender, soft Extremities: non-tender Jrery Varner [employer] INTERN January 08, 2020 16:48
--- NOTE | 2020-01-08 19:17 | Cardiology Progress Note ---
Assessment/Plan Assessment/Plan 1. [id number] myocardial infarction,related to demand vs from covid induced myonecrosis , doubt plaque rupture or cytokine storm 2. Acute renal failure in the setting of volume depletion. 3. Hypernatremia secondary to volume depletion. 4. 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 5. Dementia. 6. Lactic acidosis. 7. History of bradycardia secondary to medications. 8. bacteremia no fever covid status now neg on 2 check on sq heparin for dvt ppx echo prelim noted no sig abn peg performed wbc elelvated await snf placement developed fever today Subjective ROS Limited/Unobtainable: Yes Subjective per rn no SOB noted, responsive to verbal and tactile stimuli, no s/s of pain or discomfort noted. A and O x 1-2, on 02 via NC @ 2 lpm, on contact and droplet isolation for MRSA nares and PUI covid, on Glucerna 1.2 @ 60 cc/h Objective Last 24 Hour Vital Signs Date Time Temp Pulse Resp B/P (MAP) Pulse Ox O2 Delivery O2 Flow Rate FiO2 01/08/20 18:30 98.8 01/08/20 18:30 98.8 01/08/20 16:00 101.7 78 20 126/57 (80) 98 01/08/20 14:49 114/53 01/08/20 14:48 114/53 01/08/20 12:00 98.2 75 20 114/53 (73) 98 01/08/20 09:00 Nasal Cannula 2.0 01/08/20 08:00 98.2 78 20 113/46 (68) 100 01/08/20 05:54 102/49 01/08/20 04:00 98.0 81 21 102/49 (66) 96 01/08/20 00:00 97.9 78 20 128/60 (82) 94 01/07/20 21:20 131/58 01/07/20 21:00 Room Air 01/07/20 20:00 98.6 81 21 131/58 (82) 96 Intake and Output 01/07/20 01/08/20 19:00 07:00 Intake Total 1190 ml 115 ml Output Total 800 ml 750 ml Balance 390 ml -635 ml Intake Free Water 360 ml IV Total 110 ml 55 ml Tube Feeding 720 ml 60 ml Output Urine Total 800 ml 750 ml # Voids 2 1 # Bowel Movements 1 Laboratory Tests Test 01/08/20 06:35 White Blood Count 13.4 K/UL (4.8-10.8) H Red Blood Count 2.98 M/UL (4.20-5.40) L Hemoglobin 9.6 G/DL (12.0-16.0) L Hematocrit 27.8 % (37.0-47.0) L Mean Corpuscular Volume 93 FL (80-99) Mean Corpuscular Hemoglobin 32.1 PG (27.0-31.0) H Mean Corpuscular Hemoglobin Concent 34.5 G/DL (32.0-36.0) Red Cell Distribution Width 13.1 % (11.6-14.8) Platelet Count 704 K/UL (150-450) H Mean Platelet Volume 5.6 FL (6.5-10.1) L Neutrophils (%) (Auto) 72.5 % (45.0-75.0) Lymphocytes (%) (Auto) 20.8 % (20.0-45.0) Monocytes (%) (Auto) 5.4 % (1.0-10.0) Eosinophils (%) (Auto) 0.5 % (0.0-3.0) Basophils (%) (Auto) 0.8 % (0.0-2.0) Sodium Level 139 MMOL/L (136-145) Potassium Level 4.1 MMOL/L (3.5-5.1) Chloride Level 105 MMOL/L (98-107) Carbon Dioxide Level 31 MMOL/L (21-32) Anion Gap 3 mmol/L (5-15) L Blood Urea Nitrogen 18 mg/dL (7-18) Creatinine 0.7 MG/DL (0.55-1.30) Estimat Glomerular Filtration Rate > 60 mL/min (>60) Glucose Level 130 MG/DL (74-106) H Calcium Level 8.6 MG/DL (8.5-10.1) Kendell Rosen MD January 08, 2020 19:17
[2020-01-08 20:00] VITALS: BP 125/59
--- NOTE | 2020-01-08 20:32 | Surgery Progress Note ---
Surgery Progress Note Subjective Additional Comments no acute events Objective Last 24 Hour Vital Signs Date Time Temp Pulse Resp B/P (MAP) Pulse Ox O2 Delivery O2 Flow Rate FiO2 01/08/20 18:30 98.8 01/08/20 18:30 98.8 01/08/20 16:00 101.7 78 20 126/57 (80) 98 01/08/20 14:49 114/53 01/08/20 14:48 114/53 01/08/20 12:00 98.2 75 20 114/53 (73) 98 01/08/20 09:00 Nasal Cannula 2.0 01/08/20 08:00 98.2 78 20 113/46 (68) 100 01/08/20 05:54 102/49 01/08/20 04:00 98.0 81 21 102/49 (66) 96 01/08/20 00:00 97.9 78 20 128/60 (82) 94 01/07/20 21:20 131/58 01/07/20 21:00 Room Air I&O Intake and Output 01/07/20 01/08/20 19:00 07:00 Intake Total 1190 ml 115 ml Output Total 800 ml 750 ml Balance 390 ml -635 ml Intake Free Water 360 ml IV Total 110 ml 55 ml Tube Feeding 720 ml 60 ml Output Urine Total 800 ml 750 ml # Voids 2 1 # Bowel Movements 1 Dressing: saturated Wound: clean Cardiovascular: RSR Respiratory: clear, decreased breath sounds Abdomen: soft, non-tender, present bowel sounds Extremities: no cyanosis Laboratory Tests Test 01/08/20 06:35 White Blood Count 13.4 K/UL (4.8-10.8) H Red Blood Count 2.98 M/UL (4.20-5.40) L Hemoglobin 9.6 G/DL (12.0-16.0) L Hematocrit 27.8 % (37.0-47.0) L Mean Corpuscular Volume 93 FL (80-99) Mean Corpuscular Hemoglobin 32.1 PG (27.0-31.0) H Mean Corpuscular Hemoglobin Concent 34.5 G/DL (32.0-36.0) Red Cell Distribution Width 13.1 % (11.6-14.8) Platelet Count 704 K/UL (150-450) H Mean Platelet Volume 5.6 FL (6.5-10.1) L Neutrophils (%) (Auto) 72.5 % (45.0-75.0) Lymphocytes (%) (Auto) 20.8 % (20.0-45.0) Monocytes (%) (Auto) 5.4 % (1.0-10.0) Eosinophils (%) (Auto) 0.5 % (0.0-3.0) Basophils (%) (Auto) 0.8 % (0.0-2.0) Sodium Level 139 MMOL/L (136-145) Potassium Level 4.1 MMOL/L (3.5-5.1) Chloride Level 105 MMOL/L (98-107) Carbon Dioxide Level 31 MMOL/L (21-32) Anion Gap 3 mmol/L (5-15) L Blood Urea Nitrogen 18 mg/dL (7-18) Creatinine 0.7 MG/DL (0.55-1.30) Estimat Glomerular Filtration Rate > 60 mL/min (>60) Glucose Level 130 MG/DL (74-106) H Calcium Level 8.6 MG/DL (8.5-10.1) Plan Problems: (1) Leukocytosis Assessment & Plan: Acute leukocytosis. Microbiology identified staph E. On antibiotics per infectious disease. WBC trending down. Complete examination identified no external source of potential staph infection in the blood bacteremia DTI noted Continue antibiotics as per infectious disease Trend labs persistent wbc micro reviewed as above We will follow with recommendations (2) Sepsis Assessment & Plan: Patient CO VID Pneumonia improving Recent acute leukocytosis trending down Course of hydroxy completed stable Improving Continue current care plan Abnormal LFTs identified Hold on abdominal ultrasound for now nutritional optimization turn q2h off load pressures cont tube feeds at goal DAILY ESTIMATED NEEDS: Needs based on ROSARIO, Cardiac/ 52kg 25-30 kcals/kg 7651-4363 total kcals 1-1.2 g protein/kg 52-62 g total protein 25-30 mL/kg 7568-5952 total fluid mLs NUTRITION DIAGNOSIS: Swallowing difficulty R/T dysphagia, AMS, lethargy as evidenced by NPO at this time, YARDAGE CONTROL OPERATOR eval pending, FTT dx, s/p NGT feeding, now NPO, pending PEG placement. CURRENT TF:NPO ENTERAL NUTRITION RECOMMENDATIONS: Jevity 1.2 @ 50ml/hr x 24 hrs to provide 1200ml, 1440kcal, 66g prot, 968ml free water * S/p PEG placement, resume previous TF -> initiate @ 20ml/hr x 6 hrs, advance 10ml q 4-6 hrs as tolerated to goal rate * HOB over 30 degrees * Water flush of 150ml q 8 hrs --- W/ consistently elev BGs, rec Glucerna 1.5 (Glucerna 1.2 is out of stock) @ goal rate of 40ml/hr x 24 hrs to provide 960ml, 1440kcal, 79g prot, 729ml free water. ADDITIONAL RECOMMENDATIONS: * Calibrated bedscale wt for accurate CBW- discrepancy wt in EMR noted per SNF record: HT=60", PR=551.4lbs (December 2019) * Monitor for possible PEG placement- schedule for 5/4 * Monitor BGs, need for carb controlled TF * Monitor lytes, replete as needed (3) Staphylococcus epidermidis bacteremia Assessment & Plan: As above Andi Valera January 08, 2020 20:32
[2020-01-08] MEDS: Atorvastatin 20mg tab NG SCH (21:19)
[2020-01-08] MEDS ORDERED: Tubing IV Secondary IV ONE (21:25)
[2020-01-08] MEDS ORDERED: NS 275ml ONE (21:25)
[2020-01-09] VITALS: BP 135/69
[2020-01-09 04:00] VITALS: BP 129/76
[2020-01-09] MEDS: Captopril 12.5mg tab NG SCH ×3 (05:25→21:44)
[2020-01-09 08:00] VITALS: BP 129/68
[2020-01-09] MEDS: Aztreonam Inj 1 GM in D5W 55 ML IVPB SCH (08:30)
[2020-01-09] MEDS: Aspirin Baby 81mg NG SCH (08:34)
[2020-01-09] MEDS: Valproic Acid 250mg/5ml Liquid NG SCH ×2 (08:34→20:32)
[2020-01-09] MEDS: Heparin 5000 units/ml inj SUBQ SCH ×2 (08:36→20:44)
[2020-01-09] MEDS: Acetaminophen 650mg/20.3ml NG PRN (08:45)
--- NOTE | 2020-01-09 08:57 | Pulmonology Progress Note ---
Marge Gutierrez ARMED CUSTOM PROTECTION OFFICER 01/09/20 0857: Subjective ROS Limited/Unobtainable: Yes Interval Events: Allergies: Coded Allergies: MEMANTINE (Unverified Allergy, Unknown, 12/15/19) SERTRALINE (Unverified Allergy, Unknown, 12/15/19) Subjective leukocytosis persists, fever 100 at [place] SARS- CoV -2 by PCR 12/21 and 12/24 not detected s/p EGF and PEG /6 tolerates TF CXR 01/06 no definite acute process abx escalated by ID CT C/A/P pending for this am Objective Last 24 Hour Vital Signs Date Time Temp Pulse Resp B/P (MAP) Pulse Ox O2 Delivery O2 Flow Rate FiO2 01/09/20 05:25 129/76 01/09/20 04:00 98.3 78 21 129/76 (93) 95 01/09/20 00:00 98.6 89 19 135/69 (91) 98 01/08/20 21:21 126/57 01/08/20 21:00 Room Air 01/08/20 20:00 99.0 79 20 125/59 (81) 98 01/08/20 18:30 98.8 01/08/20 18:30 98.8 01/08/20 16:00 101.7 78 20 126/57 (80) 98 01/08/20 14:49 114/53 01/08/20 14:48 114/53 01/08/20 12:00 98.2 75 20 114/53 (73) 98 01/08/20 09:00 Nasal Cannula 2.0 Intake and Output 01/08/20 01/09/20 19:00 07:00 Intake Total 1130 ml 540 ml Output Total 1201 ml 850 ml Balance -71 ml -310 ml Intake Free Water 360 ml 120 ml IV Total 110 ml Tube Feeding 660 ml 420 ml Output Urine Total 1200 ml 850 ml Stool Total 1 ml Objective General Appearance: WD/WN, in no acute distress elderly AA female HEENT: normocephalic, atraumatic, anicteric, mucous membranes moist, PERRL, NGT Respiratory/Chest: BS overall clear Cardiovascular: normal peripheral pulses, normal rate, Abdomen: normal bowel sounds, soft, non tender, , G tube with TF infusing, site clean, abd binder on Genitourinary: normal external genitalia Extremities: no cyanosis, no clubbing Skin: no rash, no lesions, no ulcers 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: manager reading II-XII grossly normal, open eyes spontaneously but very poorly responsive Lymphatic: no neck adenopathy, no groin adenopathy Musculoskeletal: muscle atrophy, no effusion Current Medications Medications (Trade) Dose Ordered Sig/Ovi Route PRN Reason Start Time Stop Time Status Last Admin Dose Admin Acetaminophen (Tylenol) 650 mg Q4H PRN NG Temp >100.5 01/05/20 12:16 02/04/20 12:15 01/09/20 08:45 Aspirin (ASA) 81 mg DAILY NG 01/06/20 09:00 02/02/20 08:59 01/09/20 08:34 Atorvastatin Calcium (Lipitor) 20 mg BEDTIME NG 01/05/20 21:00 03/18/20 20:59 01/08/20 21:19 Aztreonam 1 gm/ Dextrose 55 ml @ 110 mls/hr Q8H IVPB 01/05/20 16:00 01/12/20 00:00 01/09/20 08:30 Captopril (Capoten) 6.25 mg EVERY 8 HOURS NG 01/05/20 14:00 01/24/20 20:59 01/09/20 05:25 Folic Acid (Folate) 2 mg DAILY NG 01/06/20 09:00 01/29/20 11:59 01/09/20 08:34 Heparin Sodium (Porcine) (Heparin 5000 units/ml) 5,000 units EVERY 12 HOURS SUBQ 01/05/20 21:00 02/02/20 20:59 01/09/20 08:36 Lansoprazole (Prevacid) 30 mg BID NG 01/05/20 18:00 01/28/20 17:59 01/09/20 08:34 Nitroglycerin (Ntg) 1 patch Q24H TDERMAL 01/05/20 14:00 01/14/20 13:59 01/08/20 14:49 Valproic Acid (Depakene) 500 mg EVERY 12 HOURS NG 01/05/20 21:00 01/17/20 23:14 01/09/20 08:34 Assessment/Plan Assessment/Plan PROBLEMS Confirmed COVID-19 virus infection Viral pneumonia Electrolyte imbalance NSTEMI (non-ST elevated myocardial infarction) Encephalopathy Dehydration ROSARIO (acute kidney injury) Staphylococcus epidermidis bacteremia Anemia Persistent leukocytosis with intermittent fevers ASSESSMENT Probably sepsis ( POA, with leukocytosis, lactic acidosis, evidence of infection ) Confirmed CoVID 19 infection Acute hypoxemic respiratory failure-resolved S epidermis bacteremia New leukocytosis with fevers, Proteus UTI Acute renal failure - RESOLVED Severe dehydration - IMPROVED Hypernatremia indicative of free water depletion Hypercalcemia likely due to dehydration Elevated hemoglobin likely secondary to hemoconcentration, now anemia Elevated troponin/NSTEMI Poor p.o. intake / failure to thrive Dementia Hypertension Generalized anxiety disorder Dysphagia , s/p EGD and PEG 01/04 Anemia of chronic disease Folate deficiency PLAN OF CARE * COVID-19 isolation status, confirmed 12/14, * repeat COVID 12/21- and 12/24 NGT -> off isolation now * on [facility] floor now * monitor oxygenation closely, on RA or only on 1-2L nasal cannula * CXR prn only if worsening symptoms, CXR 12/16 clear lungs * fup CXR 12/25 done , given mild leukocytosis -no acute findings * last CRP 16.1 (up from previous), LDH 306 * worsening leukocytosis, fevers, recultured 12/31, fup with cx: UA + pyuria, UCX- GNB ; BCX 01/01 -NGTD * CXR 01/01 No focal consolidative process or pleural effusions, not likely PNA, leuk probably due to UTI * repeat CXR ( fevers, cough) * also check stool C dif -NGT 01/03 * Vanco per ID, needs 2 wks for Staph epidermidis ( repeated BCX 12/20 still + with Staph epidermidis 09/02) -completed ; * repeated BCX 01/01 NGT * discussed with ID Dr Howell - Zosyn added for GN coverage 01/01, F/c changed 12/29 * UCX + Proteus, Zosyn changed to Aztreonam per ID x 10 days * stool C dif 01/03 NGT, * CXR 01/06 no acute process * unclear cause of persistent leukocytosis and intermittent fevers- * abx escalated by ID: aztreonam changed to Zosyn adn Zyvox, pt pancultured, F/ c was dc * UCX 01/08 NGTD,. BCX 01/08 pending * CT C/ A/P for this am 01/09 * Completed 5 days of Plaquenil * s/p IVF , nephro on board * Monitor electrolytes and renal parameters * TTE per cardio * on a/PLT therapy with ASA, statin , [facility] for afterload reduction * NPO, NGTF's, MICROSOFT APPLICATION DEVELOPER eval , , strict aspiration precautions, unable to participate in swallow eval * Cont Depakote 500 mg bid from SNF * DVT ppx: heparin SQ * Anemia w/up c/w ACD and folate deficiency, started on folate replacement * stool OB negative * monitor HH with goal to keep Hgb above 7 * Full Code per prior documented ECP notes * Dr Toledo spoke with daughter Dayna Milton 12/27 ([phone]) and discussed further goals of care, she will need to discuss with other family members and will get back to us: either PEG placement or palliative care * awaiting for family decision, daughter decided to continue Full code and wants G tube * GI on board now, * s/p EGD and PEG 01/04, * asp precautions, GTF as per GI recs, tolerates Notes Reviewed: cardio, renal, ID Discussed with: nurses, case discussed and evaluated by supervising physician Boby Toledo MD 01/10/20 1255: Subjective Allergies: Coded Allergies: MEMANTINE (Unverified Allergy, Unknown, 12/15/19) SERTRALINE (Unverified Allergy, Unknown, 12/15/19) Assessment/Plan Assessment/Plan Patient seen and examined with ARMED CUSTOM PROTECTION OFFICER. Agree with above A&P as it reflects our joint deliberations. Marge Gutierrez NP January 09, 2020 08:57 Boby Toledo MD January 10, 2020 12:55
[2020-01-09 09:28] LABS: BASOPHILS % (AUTO) 0.7 % (0.0-2.0); EOSINOPHILS % (AUTO) 0.3 % (0.0-3.0); HEMATOCRIT 28.3 % (37.0-47.0); HEMOGLOBIN 9.6 G/DL (12.0-16.0); LYMPHOCYTES % (AUTO) 16.3 % (20.0-45.0); MEAN CORPUSCULAR VOLUME 94 FL (80-99); MONOCYTES % (AUTO) 7.1 % (1.0-10.0); NEUTROPHILS % (AUTO) 75.6 % (45.0-75.0); PLATELET COUNT 667 K/UL (150-450); RED BLOOD COUNT 3.02 M/UL (4.20-5.40); RED CELL DISTRIBUTION WIDTH 13.4 % (11.6-14.8); WHITE BLOOD COUNT 15.8 K/UL (4.8-10.8)
[2020-01-09 09:57] LABS: ANION GAP 6 mmol/L (5-15); BLOOD UREA NITROGEN 18 mg/dL (7-18); CALCIUM 8.6 MG/DL (8.5-10.1); CARBON DIOXIDE 30 MMOL/L (21-32); CHLORIDE 106 MMOL/L (98-107); CREATININE 0.7 MG/DL (0.55-1.30); POTASSIUM 4.2 MMOL/L (3.5-5.1); SODIUM 142 MMOL/L (136-145)
--- NOTE | 2020-01-09 10:03 | Nephrology Progress Note ---
Assessment/Plan Problem List: (1) ROSARIO (acute kidney injury) (2) Dehydration (3) Electrolyte imbalance (4) NSTEMI (non-ST elevated myocardial infarction) (5) COVID-19 virus infection (6) Anemia Assessment Acute renal failure Severe dehydration Hypernatremia indicative of free water depletion Hypercalcemia likely due to dehydration Elevated hemoglobin likely secondary to hemoconcentration Elevated troponin Poor p.o. intake / failure to thrive Dementia Hypertension Exposure to COVID-19 Plan Covid19 test positive Received PEG today January 04 WBCs carlene over 15,000 Stable from renal standpoint to view Continue per ID advice Previously: Discontinue potassium chloride p.o. IV Protonix to Prevacid via NG tube At the folic acid to medication Watch declining hemoglobin Aspirin 2D echocardiogram, results still pending Nitropaste Avoid nephrotoxic's Monitor renal parameters Monitor hemoglobin hematocrit Avoid mind altering medication in view of severe lethargy Per orders Subjective ROS Limited/Unobtainable: No Objective Objective Last 24 Hour Vital Signs Date Time Temp Pulse Resp B/P (MAP) Pulse Ox O2 Delivery O2 Flow Rate FiO2 01/09/20 09:04 98.2 01/09/20 05:25 129/76 01/09/20 04:00 98.3 78 21 129/76 (93) 95 01/09/20 00:00 98.6 89 19 135/69 (91) 98 01/08/20 21:21 126/57 01/08/20 21:00 Room Air 01/08/20 20:00 99.0 79 20 125/59 (81) 98 01/08/20 18:30 98.8 01/08/20 16:00 101.7 78 20 126/57 (80) 98 01/08/20 14:49 114/53 01/08/20 14:48 114/53 01/08/20 12:00 98.2 75 20 114/53 (73) 98 Intake and Output 01/08/20 01/09/20 19:00 07:00 Intake Total 1130 ml 540 ml Output Total 1201 ml 850 ml Balance -71 ml -310 ml Intake Free Water 360 ml 120 ml IV Total 110 ml Tube Feeding 660 ml 420 ml Output Urine Total 1200 ml 850 ml Stool Total 1 ml Laboratory Tests 01/09/20 08:00: White Blood Count 15.8H, Red Blood Count 3.02L, Hemoglobin 9.6L, Hematocrit 28.3L, Mean Corpuscular Volume 94, Mean Corpuscular Hemoglobin 31.8H, Mean Corpuscular Hemoglobin Concent 33.9, Red Cell Distribution Width 13.4, Platelet Count 667H, Mean Platelet Volume 5.6L, Neutrophils (%) (Auto) 75.6H, Lymphocytes (%) (Auto) 16.3L, Monocytes (%) (Auto) 7.1, Eosinophils (%) (Auto) 0.3, Basophils (%) (Auto) 0.7, Sodium Level 142, Potassium Level 4.2, Chloride Level 106, Carbon Dioxide Level 30, Anion Gap 6, Blood Urea Nitrogen 18, Creatinine 0.7, Estimat Glomerular Filtration Rate > 60, Glucose Level 114H, Calcium Level 8.6 Height (Feet): 5 Height (Inches): 0.00 Weight (Pounds): 155 General Appearance: no apparent distress Cardiovascular: normal rate Abdomen: soft Objective No change Robert Foreman MD January 09, 2020 10:03
[2020-01-09 12:00] VITALS: BP 103/70
--- NOTE | 2020-01-09 12:42 | GI Progress Note ---
Assessment/Plan Problems: (1) Anemia ICD Codes: D64.9 - Anemia, unspecified SNOMED: 733931631 (2) COVID-19 virus infection ICD Codes: U07.1 - COVID-19 SNOMED: 276484932 (3) Dehydration ICD Codes: E86.0 - Dehydration SNOMED: 14549596 (4) Encephalopathy ICD Codes: G93.40 - Encephalopathy, unspecified SNOMED: 43793360 Status: unchanged Status Narrative Discussed with Dr. Villalta. Assessment/Plan 1. The patient is an 89-year-old female with current medical problem as COVID positive pneumonia resolving. 2. Diabetes. 3. Anemia. 4. Abnormal liver function tests. 5. Sepsis. 6. Dysphagia. 7. Non-ST elevation myocardial infarction. 8. Dementia. 9. Encephalopathy. 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 s/p GT placement GTF GT care monitor for residuals The patient was seen and examined at bedside and all new and available data was reviewed in the patients chart. I agree with the above findings, impression and plan. (Patient seen earlier today. Signature stamp does not reflect patient encounter time.). - Sven Villalta MD Subjective Subjective limited Objective Last 24 Hour Vital Signs Date Time Temp Pulse Resp B/P (MAP) Pulse Ox O2 Delivery O2 Flow Rate FiO2 01/09/20 09:04 98.2 01/09/20 09:00 Room Air 01/09/20 08:00 100.5 74 18 129/68 (88) 99 01/09/20 05:25 129/76 01/09/20 04:00 98.3 78 21 129/76 (93) 95 01/09/20 00:00 98.6 89 19 135/69 (91) 98 01/08/20 21:21 126/57 01/08/20 21:00 Room Air 01/08/20 20:00 99.0 79 20 125/59 (81) 98 01/08/20 18:30 98.8 01/08/20 16:00 101.7 78 20 126/57 (80) 98 01/08/20 14:49 114/53 01/08/20 14:48 114/53 Intake and Output 01/08/20 01/09/20 19:00 07:00 Intake Total 1130 ml 540 ml Output Total 1201 ml 850 ml Balance -71 ml -310 ml Intake Free Water 360 ml 120 ml IV Total 110 ml Tube Feeding 660 ml 420 ml Output Urine Total 1200 ml 850 ml Stool Total 1 ml Laboratory Tests Test 01/09/20 08:00 White Blood Count 15.8 K/UL (4.8-10.8) H Red Blood Count 3.02 M/UL (4.20-5.40) L Hemoglobin 9.6 G/DL (12.0-16.0) L Hematocrit 28.3 % (37.0-47.0) L Mean Corpuscular Volume 94 FL (80-99) Mean Corpuscular Hemoglobin 31.8 PG (27.0-31.0) H Mean Corpuscular Hemoglobin Concent 33.9 G/DL (32.0-36.0) Red Cell Distribution Width 13.4 % (11.6-14.8) Platelet Count 667 K/UL (150-450) H Mean Platelet Volume 5.6 FL (6.5-10.1) L Neutrophils (%) (Auto) 75.6 % (45.0-75.0) H Lymphocytes (%) (Auto) 16.3 % (20.0-45.0) L Monocytes (%) (Auto) 7.1 % (1.0-10.0) Eosinophils (%) (Auto) 0.3 % (0.0-3.0) Basophils (%) (Auto) 0.7 % (0.0-2.0) Sodium Level 142 MMOL/L (136-145) Potassium Level 4.2 MMOL/L (3.5-5.1) Chloride Level 106 MMOL/L (98-107) Carbon Dioxide Level 30 MMOL/L (21-32) Anion Gap 6 mmol/L (5-15) Blood Urea Nitrogen 18 mg/dL (7-18) Creatinine 0.7 MG/DL (0.55-1.30) Estimat Glomerular Filtration Rate > 60 mL/min (>60) Glucose Level 114 MG/DL (74-106) H Calcium Level 8.6 MG/DL (8.5-10.1) Height (Feet): 5 Height (Inches): 0.00 Weight (Pounds): 155 General Appearance: no apparent distress Cardiovascular: normal rate Respiratory/Chest: no respiratory distress Abdominal Exam: normal bowel sounds, non tender, soft, GT site Extremities: non-tender Jerry Varner NP January 09, 2020 12:42
--- NOTE | 2020-01-09 13:29 | Diagnostic Imaging Report ---
EXAM: XR Chest, 1 View CLINICAL HISTORY: COUGH TECHNIQUE: Frontal view of the chest. COMPARISON: Chest x-ray 01/07/20 FINDINGS: Lungs: Unchanged mild linear atelectasis in the medial left lung base. The lungs are otherwise clear. Pleural space: Unremarkable. The costophrenic angles are sharp. No visible pneumothorax. Heart: Mild cardiomegaly. Mediastinum: Unremarkable. Bones/joints: Degenerative changes throughout the visualized spine and shoulder joints. Vasculature: Mild atherosclerotic calcifications are noted within the aortic arch. IMPRESSION: 1. Mild cardiomegaly. 2. Unchanged mild linear atelectasis in the medial left lung base.
[2020-01-09] MEDS: Nitroglycerin Patch 0.4mg TDERMAL SCH (13:55)
[2020-01-09] MEDS: Piperacillin/Tazobactam 3.375 GM in NS 110 ML IVPB SCH ×2 (14:00→21:44)
[2020-01-09 16:00] VITALS: BP 101/72
[2020-01-09 16:45] LABS: APPEARANCE,URINE SLIGHTLY CLOUDY; BILIRUBIN, URINE NEGATIVE (NEGATIVE); GLUCOSE, URINE (UA) NEGATIVE (NEGATIVE); KETONES,URINE NEGATIVE (NEGATIVE); LEUKOCYTE ESTERASE ,URINE 3+ (NEGATIVE); NITRITE,URINE NEGATIVE (NEGATIVE); PH,URINE 6.5 (4.5-8.0); PROTEIN,URINE 2+ (NEGATIVE); UROBILINOGEN,URINE 12 MG/DL (0.0-1.0)
[2020-01-09 16:46] LABS: COLOR,URINE YELLOW
--- NOTE | 2020-01-09 17:11 | Surgery Progress Note ---
Surgery Progress Note Subjective Additional Comments worsening leukocytosis low grade fevers no n/v comfortable appearing ID input appreciated Objective Last 24 Hour Vital Signs Date Time Temp Pulse Resp B/P (MAP) Pulse Ox O2 Delivery O2 Flow Rate FiO2 01/09/20 16:00 99.6 81 16 101/72 (82) 96 01/09/20 13:55 132/63 01/09/20 13:54 132/63 01/09/20 12:00 99.7 78 19 103/70 (81) 99 01/09/20 09:04 98.2 01/09/20 09:00 Room Air 01/09/20 08:00 100.5 74 18 129/68 (88) 99 01/09/20 05:25 129/76 01/09/20 04:00 98.3 78 21 129/76 (93) 95 01/09/20 00:00 98.6 89 19 135/69 (91) 98 01/08/20 21:21 126/57 01/08/20 21:00 Room Air 01/08/20 20:00 99.0 79 20 125/59 (81) 98 01/08/20 18:30 98.8 I&O Intake and Output 01/08/20 01/09/20 19:00 07:00 Intake Total 1130 ml 540 ml Output Total 1201 ml 850 ml Balance -71 ml -310 ml Intake Free Water 360 ml 120 ml IV Total 110 ml Tube Feeding 660 ml 420 ml Output Urine Total 1200 ml 850 ml Stool Total 1 ml Dressing: other Wound: other Drains: other Cardiovascular: RSR Respiratory: decreased breath sounds Abdomen: soft, non-tender, present bowel sounds Extremities: no cyanosis Laboratory Tests Test 01/09/20 08:00 01/09/20 12:30 White Blood Count 15.8 K/UL (4.8-10.8) H Red Blood Count 3.02 M/UL (4.20-5.40) L Hemoglobin 9.6 G/DL (12.0-16.0) L Hematocrit 28.3 % (37.0-47.0) L Mean Corpuscular Volume 94 FL (80-99) Mean Corpuscular Hemoglobin 31.8 PG (27.0-31.0) H Mean Corpuscular Hemoglobin Concent 33.9 G/DL (32.0-36.0) Red Cell Distribution Width 13.4 % (11.6-14.8) Platelet Count 667 K/UL (150-450) H Mean Platelet Volume 5.6 FL (6.5-10.1) L Neutrophils (%) (Auto) 75.6 % (45.0-75.0) H Lymphocytes (%) (Auto) 16.3 % (20.0-45.0) L Monocytes (%) (Auto) 7.1 % (1.0-10.0) Eosinophils (%) (Auto) 0.3 % (0.0-3.0) Basophils (%) (Auto) 0.7 % (0.0-2.0) Sodium Level 142 MMOL/L (136-145) Potassium Level 4.2 MMOL/L (3.5-5.1) Chloride Level 106 MMOL/L (98-107) Carbon Dioxide Level 30 MMOL/L (21-32) Anion Gap 6 mmol/L (5-15) Blood Urea Nitrogen 18 mg/dL (7-18) Creatinine 0.7 MG/DL (0.55-1.30) Estimat Glomerular Filtration Rate > 60 mL/min (>60) Glucose Level 114 MG/DL (74-106) H Calcium Level 8.6 MG/DL (8.5-10.1) Urine Color Yellow Urine Appearance Slightly cloudy Urine pH 6.5 (4.5-8.0) Urine Specific [place] 1.010 (1.005-1.035) Urine Protein 2+ (NEGATIVE) H Urine Glucose (UA) Negative (NEGATIVE) Urine Ketones Negative (NEGATIVE) Urine Blood 4+ (NEGATIVE) H Urine Nitrite Negative (NEGATIVE) Urine Bilirubin Negative (NEGATIVE) Urine Urobilinogen 12 MG/DL (0.0-1.0) H Urine Leukocyte Esterase 3+ (NEGATIVE) H Urine RBC 15-20 /HPF (0 - 2) H Urine WBC Tntc /HPF (0 - 2) H Urine Squamous Epithelial Cells Many /LPF (NONE/OCC) H Urine Bacteria Many /HPF (NONE) H Plan Problems: (1) Leukocytosis Assessment & Plan: Acute leukocytosis. Microbiology identified staph E. On antibiotics per infectious disease. WBC trending down. Complete examination identified no external source of potential staph infection in the blood bacteremia DTI noted Continue antibiotics as per infectious disease Trend labs persistent wbc micro reviewed as above worsening ID input appreciated We will follow with recommendations (2) Sepsis Assessment & Plan: Patient CO VID Pneumonia improving Recent acute leukocytosis trending down Course of hydroxy completed stable Improving Continue current care plan Abnormal LFTs identified Hold on abdominal ultrasound for now nutritional optimization turn q2h off load pressures cont tube feeds at goal DAILY ESTIMATED NEEDS: Needs based on ROSARIO, Cardiac/ 52kg 25-30 kcals/kg 4972-2451 total kcals 1-1.2 g protein/kg 52-62 g total protein 25-30 mL/kg 7344-1099 total fluid mLs NUTRITION DIAGNOSIS: Swallowing difficulty R/T dysphagia, AMS, lethargy as evidenced by NPO at this time, NEUROLOGIST eval pending, FTT dx, s/p NGT feeding, now NPO, pending PEG placement. CURRENT TF:NPO ENTERAL NUTRITION RECOMMENDATIONS: Jevity 1.2 @ 50ml/hr x 24 hrs to provide 1200ml, 1440kcal, 66g prot, 968ml free water * S/p PEG placement, resume previous TF -> initiate @ 20ml/hr x 6 hrs, advance 10ml q 4-6 hrs as tolerated to goal rate * HOB over 30 degrees * Water flush of 150ml q 8 hrs --- W/ consistently elev BGs, rec Glucerna 1.5 (Glucerna 1.2 is out of stock) @ goal rate of 40ml/hr x 24 hrs to provide 960ml, 1440kcal, 79g prot, 729ml free water. ADDITIONAL RECOMMENDATIONS: * Calibrated bedscale wt for accurate CBW- discrepancy wt in EMR noted per SNF record: HT=60", KK=958.4lbs (December 2019) * Monitor for possible PEG placement- schedule for 5/ * Monitor BGs, need for carb controlled TF * Monitor lytes, replete as needed (3) Staphylococcus epidermidis bacteremia Assessment & Plan: As above Andi Valera January 09, 2020 17:11
--- NOTE | 2020-01-09 18:26 | Infectious Diseases Prog Note ---
Assessment/Plan Problems: (1) Leukocytosis Assessment & Plan: with recurrent fever while on aztreonam , rule out new infection with resistant organisms VS Drug induced fever . will repeat Blood culture x 2 and send UA with culture , CXR no acute or new infiltrates or effusion , will D/C ramos catheter . upgrade antibiotics to zosyn and zyvox pending cultures. (2) Catheter-associated urinary tract infection Assessment & Plan: with PROTEUS MIRABILIS , with persistent fever and leukocytosis while on aztreonam , will upgrade antibiotics to zosyn and zyvox , repeat urine culture and change ramos catheter . D/W nurse (3) Sepsis Assessment & Plan: with fever and leukocytosis , source ? repeat culture x 2 , CXR and urine culture , upgrade antibiotics to zosy and zyvox . (4) COVID-19 virus infection Assessment & Plan: may remove from enhanced droplet isolation, S/P hydroxychloroquin with zinc and vitamin C for five days total.repeated PCR test times two so far is negative. (5) Viral pneumonia Assessment & Plan: due to COVID 19, S/P hydroxychloroquine , with zinc and vitamin C for five days, Repeated PCR test is negative (6) ROSARIO (acute kidney injury) Assessment & Plan: suspect due to dehydration and poor oral intake improving monitor renal function avoid nephrotoxic's (7) NSTEMI (non-ST elevated myocardial infarction) Assessment & Plan: could be due to COVID 19, cardiology is following monitor troponin level Subjective ROS Limited/Unobtainable: Yes Allergies: Coded Allergies: MEMANTINE (Unverified Allergy, Unknown, 12/15/19) SERTRALINE (Unverified Allergy, Unknown, 12/15/19) Subjective she SPIKED FEVER yesterday of 101 , has dry cough but no phlegm or SOB, responsive but confused , no diarrhea so far , urine is cloudy Objective Vital Signs Last 24 Hour Vital Signs Date Time Temp Pulse Resp B/P (MAP) Pulse Ox O2 Delivery O2 Flow Rate FiO2 01/09/20 16:00 99.6 81 16 101/72 (82) 96 01/09/20 13:55 132/63 01/09/20 13:54 132/63 01/09/20 12:00 99.7 78 19 103/70 (81) 99 01/09/20 09:04 98.2 01/09/20 09:00 Room Air 01/09/20 08:00 100.5 74 18 129/68 (88) 99 01/09/20 05:25 129/76 01/09/20 04:00 98.3 78 21 129/76 (93) 95 01/09/20 00:00 98.6 89 19 135/69 (91) 98 01/08/20 21:21 126/57 01/08/20 21:00 Room Air 01/08/20 20:00 99.0 79 20 125/59 (81) 98 01/08/20 18:30 98.8 Height (Feet): 5 Height (Inches): 0.00 Weight (Pounds): 155 General Appearance: WD/WN, no acute distress HEENT: normocephalic, atraumatic, anicteric, mucous membranes moist Respiratory/Chest: chest wall non-tender, lungs clear, normal breath sounds, no respiratory distress, no accessory muscle use Cardiovascular: normal peripheral pulses, normal rate, regular rhythm, no gallop/murmur, no JVD Abdomen: normal bowel sounds, soft, non tender, no organomegaly, non distended , no mass, no scars Genitourinary: normal external genitalia Extremities: no cyanosis, no clubbing Skin: no rash, no lesions 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: in house cra II-XII grossly normal, alert, responsive Lymphatic: no neck adenopathy, no groin adenopathy Laboratory Tests Test 01/09/20 08:00 01/09/20 12:30 White Blood Count 15.8 K/UL (4.8-10.8) H Red Blood Count 3.02 M/UL (4.20-5.40) L Hemoglobin 9.6 G/DL (12.0-16.0) L Hematocrit 28.3 % (37.0-47.0) L Mean Corpuscular Volume 94 FL (80-99) Mean Corpuscular Hemoglobin 31.8 PG (27.0-31.0) H Mean Corpuscular Hemoglobin Concent 33.9 G/DL (32.0-36.0) Red Cell Distribution Width 13.4 % (11.6-14.8) Platelet Count 667 K/UL (150-450) H Mean Platelet Volume 5.6 FL (6.5-10.1) L Neutrophils (%) (Auto) 75.6 % (45.0-75.0) H Lymphocytes (%) (Auto) 16.3 % (20.0-45.0) L Monocytes (%) (Auto) 7.1 % (1.0-10.0) Eosinophils (%) (Auto) 0.3 % (0.0-3.0) Basophils (%) (Auto) 0.7 % (0.0-2.0) Sodium Level 142 MMOL/L (136-145) Potassium Level 4.2 MMOL/L (3.5-5.1) Chloride Level 106 MMOL/L (98-107) Carbon Dioxide Level 30 MMOL/L (21-32) Anion Gap 6 mmol/L (5-15) Blood Urea Nitrogen 18 mg/dL (7-18) Creatinine 0.7 MG/DL (0.55-1.30) Estimat Glomerular Filtration Rate > 60 mL/min (>60) Glucose Level 114 MG/DL (74-106) H Calcium Level 8.6 MG/DL (8.5-10.1) Urine Color Yellow Urine Appearance Slightly cloudy Urine pH 6.5 (4.5-8.0) Urine Specific [place] 1.010 (1.005-1.035) Urine Protein 2+ (NEGATIVE) H Urine Glucose (UA) Negative (NEGATIVE) Urine Ketones Negative (NEGATIVE) Urine Blood 4+ (NEGATIVE) H Urine Nitrite Negative (NEGATIVE) Urine Bilirubin Negative (NEGATIVE) Urine Urobilinogen 12 MG/DL (0.0-1.0) H Urine Leukocyte Esterase 3+ (NEGATIVE) H Urine RBC 15-20 /HPF (0 - 2) H Urine WBC Tntc /HPF (0 - 2) H Urine Squamous Epithelial Cells Many /LPF (NONE/OCC) H Urine Bacteria Many /HPF (NONE) H Current Medications Medications (Trade) Dose Ordered Sig/Ovi Route PRN Reason Start Time Stop Time Status Last Admin Dose Admin Acetaminophen (Tylenol) 650 mg Q4H PRN NG Temp >100.5 01/05/20 12:16 02/04/20 12:15 01/09/20 08:45 Aspirin (ASA) 81 mg DAILY NG 01/06/20 09:00 02/02/20 08:59 01/09/20 08:34 Atorvastatin Calcium (Lipitor) 20 mg BEDTIME NG 01/05/20 21:00 03/18/20 20:59 01/08/20 21:19 Captopril (Capoten) 6.25 mg EVERY 8 HOURS NG 01/05/20 14:00 01/24/20 20:59 01/09/20 13:54 Folic Acid (Folate) 2 mg DAILY NG 01/06/20 09:00 01/29/20 11:59 01/09/20 08:34 Heparin Sodium (Porcine) (Heparin 5000 units/ml) 5,000 units EVERY 12 HOURS SUBQ 01/05/20 21:00 02/02/20 20:59 01/09/20 08:36 Lansoprazole (Prevacid) 30 mg BID NG 01/05/20 18:00 01/28/20 17:59 01/09/20 17:46 Linezolid 300 ml @ 300 mls/hr Q12H IVPB 01/09/20 18:00 01/16/20 17:59 01/09/20 17:45 Nitroglycerin (Ntg) 1 patch Q24H TDERMAL 01/05/20 14:00 01/14/20 13:59 01/09/20 13:55 Piperacillin Sod/ Tazobactam Sod 3.375 gm/Sodium Chloride 110 ml @ 27.5 mls/hr EVERY 8 HOURS IVPB 01/09/20 14:00 01/14/20 13:59 01/09/20 14:00 Valproic Acid (Depakene) 500 mg EVERY 12 HOURS NG 01/05/20 21:00 01/17/20 23:14 01/09/20 08:34 Sukhjinder Howell M.D. January 09, 2020 18:26
[2020-01-09 20:00] VITALS: BP 104/61
[2020-01-09] MEDS: Atorvastatin 20mg tab NG SCH (20:33)
[2020-01-10] VITALS: BP 123/55
[2020-01-10 04:00] VITALS: BP 136/68
[2020-01-10] MEDS: Captopril 12.5mg tab NG SCH ×3 (06:01→21:20)
[2020-01-10] MEDS: Piperacillin/Tazobactam 3.375 GM in NS 110 ML IVPB SCH ×3 (06:35→22:41)
[2020-01-10 07:15] LABS: EOSINOPHILS % (AUTO) 0.4 % (0.0-3.0); HEMATOCRIT 25.4 % (37.0-47.0); LYMPHOCYTES % (AUTO) 18.4 % (20.0-45.0); MEAN CORPUSCULAR VOLUME 92 FL (80-99); MONOCYTES % (AUTO) 8.8 % (1.0-10.0); NEUTROPHILS % (AUTO) 71.3 % (45.0-75.0); PLATELET COUNT 569 K/UL (150-450); RED BLOOD COUNT 2.75 M/UL (4.20-5.40); WHITE BLOOD COUNT 14.5 K/UL (4.8-10.8)
[2020-01-10 08:00] VITALS: BP 124/62
[2020-01-10] MEDS ORDERED: Omnipaque-300 100ml vial INJ PRN ×2 (09:00)
[2020-01-10] MEDS ORDERED: Omnipaque-300 100ml vial INJ ONE (09:15)
--- NOTE | 2020-01-10 09:55 | General Progress Note ---
Assessment/Plan Status: unchanged Assessment/Plan: 1. The patient is an 89-year-old female with current medical problem as COVID positive pneumonia resolving. 2. Diabetes. 3. Anemia. 4. Abnormal liver function tests. 5. Sepsis. 6. Dysphagia. 7. Non-ST elevation myocardial infarction. 8. Dementia. 9. Encephalopathy. 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 s/p GT placement GTF GT care monitor for residuals Subjective ROS Limited/Unobtainable: No Allergies: Coded Allergies: MEMANTINE (Unverified Allergy, Unknown, 12/15/19) SERTRALINE (Unverified Allergy, Unknown, 12/15/19) Objective Last 24 Hour Vital Signs Date Time Temp Pulse Resp B/P (MAP) Pulse Ox O2 Delivery O2 Flow Rate FiO2 01/10/20 08:00 98.1 73 20 124/62 (82) 100 01/10/20 06:01 144/72 01/10/20 04:00 98.2 79 22 136/68 (90) 98 01/10/20 00:00 100.0 78 23 123/55 (77) 97 01/09/20 21:00 Room Air 01/09/20 20:00 99.9 22 104/61 (75) 97 01/09/20 16:00 99.6 81 16 101/72 (82) 96 01/09/20 13:55 132/63 01/09/20 13:54 132/63 01/09/20 12:00 99.7 78 19 103/70 (81) 99 Intake and Output 01/09/20 01/10/20 19:00 07:00 Intake Total 400 ml Output Total 500 ml Balance 400 ml -500 ml Intake Free Water 350 ml Tube Feeding 50 ml Output Urine Total 500 ml # Bowel Movements 1 Laboratory Tests 01/09/20 12:30: Urine Color Yellow, Urine Appearance Slightly cloudy, Urine pH 6.5, Urine Specific [place] 1.010, Urine Protein 2+H, Urine Glucose (UA) Negative, Urine Ketones Negative, Urine Blood 4+H, Urine Nitrite Negative, Urine Bilirubin Negative, Urine Urobilinogen 12H, Urine Leukocyte Esterase 3+H, Urine RBC 15-20H , Urine WBC TntcH, Urine Squamous Epithelial Cells ManyH, Urine Bacteria ManyH 01/10/20 06:30: White Blood Count 14.5H, Red Blood Count 2.75L, Hemoglobin 9.0L, Hematocrit 25.4L, Mean Corpuscular Volume 92, Mean Corpuscular Hemoglobin 32.8H, Mean Corpuscular Hemoglobin Concent 35.6, Red Cell Distribution Width 13.0, Platelet Count 569H, Mean Platelet Volume 5.8L, Neutrophils (%) (Auto) 71.3, Lymphocytes (%) (Auto) 18.4L, Monocytes (%) (Auto) 8.8, Eosinophils (%) (Auto) 0.4, Basophils (%) (Auto) 1.0 Height (Feet): 5 Height (Inches): 0.00 Weight (Pounds): 155 General Appearance: no apparent distress EENT: normal ENT inspection Neck: supple Cardiovascular: normal rate Respiratory/Chest: decreased breath sounds Abdomen: normal bowel sounds, non tender, soft Extremities: non-tender Sven Villalta MD January 10, 2020 09:55
[2020-01-10] MEDS: Aspirin Baby 81mg NG SCH (11:10)
[2020-01-10] MEDS: Valproic Acid 250mg/5ml Liquid NG SCH ×2 (11:10→21:20)
[2020-01-10] MEDS: Heparin 5000 units/ml inj SUBQ SCH ×2 (11:13→21:21)
[2020-01-10 12:00] VITALS: BP 122/69
--- NOTE | 2020-01-10 12:05 | Nephrology Progress Note ---
Assessment/Plan Problem List: (1) ROSARIO (acute kidney injury) (2) Dehydration (3) Electrolyte imbalance (4) NSTEMI (non-ST elevated myocardial infarction) (5) COVID-19 virus infection (6) Anemia Assessment Acute renal failure Severe dehydration Hypernatremia indicative of free water depletion Hypercalcemia likely due to dehydration Elevated hemoglobin likely secondary to hemoconcentration Elevated troponin Poor p.o. intake / failure to thrive Dementia Hypertension Exposure to COVID-19 Plan Covid19 test positive Received PEG today January 04 WBCs carlene over 15,000 Stable from renal standpoint to view Continue per ID advice Previously: Discontinue potassium chloride p.o. IV Protonix to Prevacid via NG tube At the folic acid to medication Watch declining hemoglobin Aspirin 2D echocardiogram, results still pending Nitropaste Avoid nephrotoxic's Monitor renal parameters Monitor hemoglobin hematocrit Avoid mind altering medication in view of severe lethargy Per orders Subjective ROS Limited/Unobtainable: No Constitutional: Reports: malaise, weakness Objective Objective Last 24 Hour Vital Signs Date Time Temp Pulse Resp B/P (MAP) Pulse Ox O2 Delivery O2 Flow Rate FiO2 01/10/20 08:00 98.1 73 20 124/62 (82) 100 01/10/20 06:01 144/72 01/10/20 04:00 98.2 79 22 136/68 (90) 98 01/10/20 00:00 100.0 78 23 123/55 (77) 97 01/09/20 21:00 Room Air 01/09/20 20:00 99.9 22 104/61 (75) 97 01/09/20 16:00 99.6 81 16 101/72 (82) 96 01/09/20 13:55 132/63 01/09/20 13:54 132/63 Intake and Output 01/09/20 01/10/20 19:00 07:00 Intake Total 400 ml Output Total 500 ml Balance 400 ml -500 ml Intake Free Water 350 ml Tube Feeding 50 ml Output Urine Total 500 ml # Bowel Movements 1 Laboratory Tests 01/09/20 12:30: Urine Color Yellow, Urine Appearance Slightly cloudy, Urine pH 6.5, Urine Specific [place] 1.010, Urine Protein 2+H, Urine Glucose (UA) Negative, Urine Ketones Negative, Urine Blood 4+H, Urine Nitrite Negative, Urine Bilirubin Negative, Urine Urobilinogen 12H, Urine Leukocyte Esterase 3+H, Urine RBC 15-20H , Urine WBC TntcH, Urine Squamous Epithelial Cells ManyH, Urine Bacteria ManyH 01/10/20 06:30: White Blood Count 14.5H, Red Blood Count 2.75L, Hemoglobin 9.0L, Hematocrit 25.4L, Mean Corpuscular Volume 92, Mean Corpuscular Hemoglobin 32.8H, Mean Corpuscular Hemoglobin Concent 35.6, Red Cell Distribution Width 13.0, Platelet Count 569H, Mean Platelet Volume 5.8L, Neutrophils (%) (Auto) 71.3, Lymphocytes (%) (Auto) 18.4L, Monocytes (%) (Auto) 8.8, Eosinophils (%) (Auto) 0.4, Basophils (%) (Auto) 1.0 Height (Feet): 5 Height (Inches): 0.00 Weight (Pounds): 155 General Appearance: no apparent distress Cardiovascular: normal rate Respiratory/Chest: decreased breath sounds Abdomen: soft Objective No change Robert Foreman MD January 10, 2020 12:05
--- NOTE | 2020-01-10 13:32 | Surgery Progress Note ---
Surgery Progress Note Subjective Additional Comments low grade fevers now no n/v wbc improving h/h stable micro noted. no growth in urine Objective Last 24 Hour Vital Signs Date Time Temp Pulse Resp B/P (MAP) Pulse Ox O2 Delivery O2 Flow Rate FiO2 01/10/20 08:00 98.1 73 20 124/62 (82) 100 01/10/20 06:01 144/72 01/10/20 04:00 98.2 79 22 136/68 (90) 98 01/10/20 00:00 100.0 78 23 123/55 (77) 97 01/09/20 21:00 Room Air 01/09/20 20:00 99.9 22 104/61 (75) 97 01/09/20 16:00 99.6 81 16 101/72 (82) 96 01/09/20 13:55 132/63 01/09/20 13:54 132/63 I&O Intake and Output 01/09/20 01/10/20 19:00 07:00 Intake Total 400 ml Output Total 500 ml Balance 400 ml -500 ml Intake Free Water 350 ml Tube Feeding 50 ml Output Urine Total 500 ml # Bowel Movements 1 Dressing: saturated Wound: other Drains: other Cardiovascular: RSR Respiratory: decreased breath sounds Abdomen: soft, non-tender, present bowel sounds Extremities: no tenderness, no cyanosis Laboratory Tests Test 01/10/20 06:30 White Blood Count 14.5 K/UL (4.8-10.8) H Red Blood Count 2.75 M/UL (4.20-5.40) L Hemoglobin 9.0 G/DL (12.0-16.0) L Hematocrit 25.4 % (37.0-47.0) L Mean Corpuscular Volume 92 FL (80-99) Mean Corpuscular Hemoglobin 32.8 PG (27.0-31.0) H Mean Corpuscular Hemoglobin Concent 35.6 G/DL (32.0-36.0) Red Cell Distribution Width 13.0 % (11.6-14.8) Platelet Count 569 K/UL (150-450) H Mean Platelet Volume 5.8 FL (6.5-10.1) L Neutrophils (%) (Auto) 71.3 % (45.0-75.0) Lymphocytes (%) (Auto) 18.4 % (20.0-45.0) L Monocytes (%) (Auto) 8.8 % (1.0-10.0) Eosinophils (%) (Auto) 0.4 % (0.0-3.0) Basophils (%) (Auto) 1.0 % (0.0-2.0) Plan Problems: (1) Leukocytosis Assessment & Plan: Acute leukocytosis. Microbiology identified staph E. On antibiotics per infectious disease. WBC trending down. Complete examination identified no external source of potential staph infection in the blood bacteremia DTI noted Continue antibiotics as per infectious disease Trend labs persistent wbc micro reviewed as above worsening ID input appreciated We will follow with recommendations (2) Sepsis Assessment & Plan: negative x 2 CO VID Pneumonia improving Recent acute leukocytosis trending down Course of hydroxy completed stable Improving Continue current care plan Abnormal LFTs identified Hold on abdominal ultrasound for now nutritional optimization turn q2h off load pressures cont tube feeds at goal fever improving wbc improving DAILY ESTIMATED NEEDS: Needs based on ROSARIO, sepsis, Cardiac/ 52kg abw 25-30 kcals/kg [id number] total kcals 1-2 g protein/kg 52-104 g total protein 25-30 mL/kg 4522-3823 total fluid mLs NUTRITION DIAGNOSIS: Swallowing difficulty R/T dysphagia, AMS, lethargy as evidenced by NPO at this time, VACUUM TESTER CANS eval pending, FTT dx, s/p PEG placement. CURRENT TF:Jevity 1.2 @ 50ml/hr x 24 hrs ENTERAL NUTRITION RECOMMENDATIONS: Jevity 1.2 @ 50ml/hr x 24 hrs to provide 1200ml, 1440kcal, 66g prot, 968ml free water * Maintain current TF * HOB over 30 degrees * Water flush of 150ml q 8 hrs --- W/ consistently elev BGs, rec Glucerna 1.5 (Glucerna 1.2 is out of stock) @ goal rate of 40ml/hr x 24 hrs to provide 960ml, 1440kcal, 79g prot, 729ml free water. ADDITIONAL RECOMMENDATIONS: * Calibrated bedscale wt for accurate CBW- discrepency wt in EMR noted per SNF record: HT=60", FA=942.4lbs (December 2019) - RECALIBRATE BEDSCALE (BEDSCALE READS "0" ON 01/09) * Monitor lytes, replete as needed * Monitor BGs, need for carb controlled TF (3) Staphylococcus epidermidis bacteremia Assessment & Plan: As above Andi Valera January 10, 2020 13:32
--- NOTE | 2020-01-10 13:37 | Infectious Diseases Prog Note ---
Assessment/Plan Problems: (1) Leukocytosis Assessment & Plan: with recurrent fever while on aztreonam , rule out new infection with resistant organisms VS Drug induced fever . await repeated Blood culture x 2, urine culture showed no growth , CXR no acute or new infiltrates or effusion , her Harris catheter was changed yesterday on January 08. continue zosyn and zyvox pending blood cultures. (2) Catheter-associated urinary tract infection Assessment & Plan: with PROTEUS MIRABILIS , with persistent fever and leukocytosis while on aztreonam , head antibiotic was switched to to zosyn and zyvox to broaden her coverage, repeated urine culture showed no growth and her Harris catheter was changed (3) Sepsis Assessment & Plan: with fever and leukocytosis , source ? await repeated blood cultures 2, CXR showed no new infiltration or effusion, and urine culture showed no growth, continue zosy and zyvox pending blood cultures. (4) COVID-19 virus infection Assessment & Plan: may remove from enhanced droplet isolation, S/P hydroxychloroquin with zinc and vitamin C for five days total.repeated PCR test times two so far is negative. (5) Viral pneumonia Assessment & Plan: due to COVID 19, S/P hydroxychloroquine , with zinc and vitamin C for five days, Repeated PCR test is negative (6) ROSARIO (acute kidney injury) Assessment & Plan: suspect due to dehydration and poor oral intake improving monitor renal function avoid nephrotoxic's (7) NSTEMI (non-ST elevated myocardial infarction) Assessment & Plan: could be due to COVID 19, cardiology is following monitor troponin level Subjective ROS Limited/Unobtainable: Yes Allergies: Coded Allergies: MEMANTINE (Unverified Allergy, Unknown, 12/15/19) SERTRALINE (Unverified Allergy, Unknown, 12/15/19) Subjective she had low-grade fever this morning, no chills, still has dry cough but no phlegm or SOB, responsive but confused , no diarrhea so far , urine is clear and Harris catheter was changed yesterday Objective Vital Signs Last 24 Hour Vital Signs Date Time Temp Pulse Resp B/P (MAP) Pulse Ox O2 Delivery O2 Flow Rate FiO2 01/10/20 08:00 98.1 73 20 124/62 (82) 100 01/10/20 06:01 144/72 01/10/20 04:00 98.2 79 22 136/68 (90) 98 01/10/20 00:00 100.0 78 23 123/55 (77) 97 01/09/20 21:00 Room Air 01/09/20 20:00 99.9 22 104/61 (75) 97 01/09/20 16:00 99.6 81 16 101/72 (82) 96 01/09/20 13:55 132/63 01/09/20 13:54 132/63 Height (Feet): 5 Height (Inches): 0.00 Weight (Pounds): 155 General Appearance: WD/WN, no acute distress HEENT: normocephalic, atraumatic, anicteric, mucous membranes moist, PERRL Respiratory/Chest: chest wall non-tender, normal breath sounds, no respiratory distress, no accessory muscle use, decreased breath sounds Cardiovascular: normal peripheral pulses, normal rate, regular rhythm, no gallop/murmur, no JVD Abdomen: normal bowel sounds, soft, non tender, no organomegaly, non distended , no mass, no scars Genitourinary: normal external genitalia Extremities: no cyanosis, no clubbing Skin: no rash, no lesions 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: alert, responsive Lymphatic: no neck adenopathy, no groin adenopathy Musculoskeletal: normal muscle bulk, no effusion Microbiology Date/Time Source Procedure Growth Status 01/09/20 12:30 Indwelling Cath Urine Culture - Preliminary NO GROWTH Resulted Laboratory Tests Test 01/10/20 06:30 White Blood Count 14.5 K/UL (4.8-10.8) H Red Blood Count 2.75 M/UL (4.20-5.40) L Hemoglobin 9.0 G/DL (12.0-16.0) L Hematocrit 25.4 % (37.0-47.0) L Mean Corpuscular Volume 92 FL (80-99) Mean Corpuscular Hemoglobin 32.8 PG (27.0-31.0) H Mean Corpuscular Hemoglobin Concent 35.6 G/DL (32.0-36.0) Red Cell Distribution Width 13.0 % (11.6-14.8) Platelet Count 569 K/UL (150-450) H Mean Platelet Volume 5.8 FL (6.5-10.1) L Neutrophils (%) (Auto) 71.3 % (45.0-75.0) Lymphocytes (%) (Auto) 18.4 % (20.0-45.0) L Monocytes (%) (Auto) 8.8 % (1.0-10.0) Eosinophils (%) (Auto) 0.4 % (0.0-3.0) Basophils (%) (Auto) 1.0 % (0.0-2.0) Current Medications Medications (Trade) Dose Ordered Sig/Ovi Route PRN Reason Start Time Stop Time Status Last Admin Dose Admin Acetaminophen (Tylenol) 650 mg Q4H PRN NG Temp >100.5 01/05/20 12:16 02/04/20 12:15 01/09/20 08:45 Aspirin (ASA) 81 mg DAILY NG 01/06/20 09:00 02/02/20 08:59 01/10/20 11:10 Atorvastatin Calcium (Lipitor) 20 mg BEDTIME NG 01/05/20 21:00 03/18/20 20:59 01/09/20 20:33 Barium Sulfate (Readi-Cat 2) 450 ml NOW PRN ORAL Radiology Procedure 01/10/20 09:00 01/12/20 08:54 Captopril (Capoten) 6.25 mg EVERY 8 HOURS NG 01/05/20 14:00 01/24/20 20:59 01/10/20 06:01 Folic Acid (Folate) 2 mg DAILY NG 01/06/20 09:00 01/29/20 11:59 01/10/20 11:10 Heparin Sodium (Porcine) (Heparin 5000 units/ml) 5,000 units EVERY 12 HOURS SUBQ 01/05/20 21:00 02/02/20 20:59 01/10/20 11:13 Iohexol (OMNIPAQUE-300 100ml) 100 ml NOW PRN INJ Radiology Procedure 01/10/20 09:00 01/12/20 08:54 Iohexol (OMNIPAQUE-300 100ml) 100 ml ONCE PRN INJ RADIOLOGY 01/10/20 09:00 02/09/20 08:59 Lansoprazole (Prevacid) 30 mg BID NG 01/05/20 18:00 01/28/20 17:59 01/10/20 11:09 Linezolid 300 ml @ 300 mls/hr Q12H IVPB 01/09/20 18:00 01/16/20 17:59 01/10/20 05:37 Nitroglycerin (Ntg) 1 patch Q24H TDERMAL 01/05/20 14:00 01/14/20 13:59 01/09/20 13:55 Piperacillin Sod/ Tazobactam Sod 3.375 gm/Sodium Chloride 110 ml @ 27.5 mls/hr EVERY 8 HOURS IVPB 01/09/20 14:00 01/14/20 13:59 01/10/20 06:35 Valproic Acid (Depakene) 500 mg EVERY 12 HOURS NG 01/05/20 21:00 01/17/20 23:14 01/10/20 11:10 Sukhjinder Howell M.D. January 10, 2020 13:37
[2020-01-10 16:00] VITALS: BP 104/58
[2020-01-10] MEDS: Nitroglycerin Patch 0.4mg TDERMAL SCH (16:01)
--- NOTE | 2020-01-10 17:26 | Diagnostic Imaging Report ---
Indications: Sepsis, fever, leukocytosis none Technique: Spiral acquisitions obtained through the brain. Angled axial and coronal 5 x 5 mm slices were reconstructed. Total dose length product 559 mGycm. CTDI vol(s) 2, 58, 5, 6 mGy. Dose reduction achieved using automated exposure control Comparison: No comparison chest CTs. Abdomen pelvis compared to 10/18/2011 Findings: Slight haziness in a mosaic perfusion pattern is seen throughout both lungs. There is a trace pleural effusion on the left. There are posterior atelectatic changes bilaterally. There is also linear atelectasis or scarring at the left lung base No dense consolidation, groundglass opacity, masses, nodules are demonstrated. No effusion seen on the right. The heart is borderline enlarged. No pericardial effusion. No mediastinal or hilar mass or adenopathy. The thyroid is not visualized. No axillary or chest wall mass or adenopathy demonstrated. The bones are unremarkable except for mild degenerative proliferative changes of the thoracic spine. The appendix is not definitely visualized, but no findings to suggest acute appendicitis are evident. There are colonic diverticula. No evidence of acute diverticulitis. No small bowel distention. No small bowel wall thickening. Contrast is seen throughout the entirety of small bowel and into the ascending colon. There is a gastrostomy in the stomach that appears well positioned. There is apparent wall thickening of the gastric antrum. No free or loculated intraperitoneal gas or fluid is evident. The gallbladder is not visualized. The liver, bile ducts, pancreas, spleen, adrenals are unremarkable. There are bilateral renal parapelvic and cortical cysts again demonstrated. There are also subcentimeter low-attenuation renal lesions which are too small to characterize but most likely represent benign simple cysts. No retroperitoneal or mesenteric mass or adenopathy. No pelvic mass or adenopathy. The uterus is absent. The bladder contains a Harris catheter. There is some thickening of the skin and subcutaneous fat in the right groin/upper thigh region. Subcutaneous gas likely likely from subcutaneous injections is seen in the anterior pelvic wall soft tissues. There are degenerative changes of the lumbar spine. Impression: Borderline cardiomegaly. Very slight subtle hazy mosaic perfusion pattern of the lungs is noted. Nonspecific, may represent mild pulmonary edema given the presence of cardiomegaly Small left pleural effusion Basilar pulmonary atelectatic changes Apparent wall thickening of the gastric antrum. Suspect artifact of under distention, but could indicate gastritis or peptic ulcer disease. Correlate with clinical findings. Skin thickening and infiltration of the subcutaneous fat in the right groin/upper thigh region. Could indicate cellulitis. Correlate with clinical findings Colonic diverticulosis. No evidence of diverticulitis Gastrostomy Harris catheter Evidence of prior cholecystectomy and hysterectomy Bilateral renal parapelvic and cortical cysts as well as subcentimeter low-attenuation lesions which probably represent benign simple cysts. Degenerative spondylosis The CT scanner at [facility] is accredited by the [employer] and the scans are performed using protocols designed to limit radiation exposure to as low as reasonably achievable to attain images of sufficient resolution adequate for diagnostic evaluation.
[2020-01-10 20:00] VITALS: BP 151/52
[2020-01-10] MEDS: Atorvastatin 20mg tab NG SCH (21:20)
[2020-01-11] VITALS: BP 137/64
[2020-01-11 04:00] VITALS: BP 128/66
[2020-01-11] MEDS: Captopril 12.5mg tab NG SCH ×3 (05:53→21:55)
[2020-01-11] MEDS: Piperacillin/Tazobactam 3.375 GM in NS 110 ML IVPB SCH ×3 (06:57→22:40)
--- NOTE | 2020-01-11 07:22 | General Progress Note ---
Assessment/Plan Status: unchanged Assessment/Plan: 1. The patient is an 89-year-old female with current medical problem as COVID positive pneumonia resolving. 2. Diabetes. 3. Anemia. 4. Abnormal liver function tests. 5. Sepsis. 6. Dysphagia. 7. Non-ST elevation myocardial infarction. 8. Dementia. 9. Encephalopathy. 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 s/p GT placement GTF GT care monitor for residuals Subjective ROS Limited/Unobtainable: No Allergies: Coded Allergies: MEMANTINE (Unverified Allergy, Unknown, 12/15/19) SERTRALINE (Unverified Allergy, Unknown, 12/15/19) Objective Last 24 Hour Vital Signs Date Time Temp Pulse Resp B/P (MAP) Pulse Ox O2 Delivery O2 Flow Rate FiO2 01/11/20 05:53 139/75 01/11/20 04:00 98.2 66 22 128/66 (86) 100 01/11/20 00:00 98.1 70 22 137/64 (88) 98 01/10/20 21:20 151/52 01/10/20 21:00 Room Air 01/10/20 20:00 98.2 73 20 151/52 (85) 99 01/10/20 16:01 122/69 01/10/20 16:01 122/69 01/10/20 16:00 98.1 68 18 104/58 (73) 99 01/10/20 12:00 97.9 69 20 122/69 (86) 98 01/10/20 09:00 Room Air 01/10/20 08:00 98.1 73 20 124/62 (82) 100 Intake and Output 01/10/20 01/11/20 19:00 07:00 Output Total 1300 ml 800 ml Balance -1300 ml -800 ml Output Urine Total 1300 ml 800 ml # Bowel Movements 1 Height (Feet): 5 Height (Inches): 0.00 Weight (Pounds): 153 General Appearance: no apparent distress EENT: normal ENT inspection Cardiovascular: normal rate Respiratory/Chest: decreased breath sounds Abdomen: normal bowel sounds, non tender, soft Extremities: non-tender Sven Villalta MD January 11, 2020 07:22
[2020-01-11 08:00] VITALS: BP 122/61
--- NOTE | 2020-01-11 08:44 | Pulmonology Progress Note ---
Marge Gutierrez PHARMACEUTICAL SCIENTIST 01/11/20 0844: Subjective ROS Limited/Unobtainable: No Interval Events: Allergies: Coded Allergies: MEMANTINE (Unverified Allergy, Unknown, 12/15/19) SERTRALINE (Unverified Allergy, Unknown, 12/15/19) Subjective late note for 01/09 leukocytosis persists, fever 100.5 at [place] SARS- CoV -2 by PCR 12/21 and 12/24 not detected s/p EGF and PEG 01/04 tolerates TF CXR 01/06 no definite acute process abx escalated by ID CT C/A/P pending for today Objective Last 24 Hour Vital Signs Date Time Temp Pulse Resp B/P (MAP) Pulse Ox O2 Delivery O2 Flow Rate FiO2 01/11/20 05:53 139/75 01/11/20 04:00 98.2 66 22 128/66 (86) 100 01/11/20 00:00 98.1 70 22 137/64 (88) 98 01/10/20 21:20 151/52 01/10/20 21:00 Room Air 01/10/20 20:00 98.2 73 20 151/52 (85) 99 01/10/20 16:01 122/69 01/10/20 16:01 122/69 01/10/20 16:00 98.1 68 18 104/58 (73) 99 01/10/20 12:00 97.9 69 20 122/69 (86) 98 01/10/20 09:00 Room Air Intake and Output 01/10/20 01/11/20 19:00 07:00 Output Total 1300 ml 800 ml Balance -1300 ml -800 ml Output Urine Total 1300 ml 800 ml # Bowel Movements 1 Objective General Appearance: WD/WN, in no acute distress elderly AA female HEENT: normocephalic, atraumatic, anicteric, mucous membranes moist, PERRL, NGT Respiratory/Chest: BS overall clear Cardiovascular: normal peripheral pulses, normal rate, Abdomen: normal bowel sounds, soft, non tender, , G tube with TF infusing, site clean, abd binder on Genitourinary: normal external genitalia Extremities: no cyanosis, no clubbing, Skin: no rash, R elbow abrasion, no ulcers 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: rouge mixer II-XII grossly normal, open eyes spontaneously but very poorly responsive Lymphatic: no neck adenopathy, no groin adenopathy Musculoskeletal: muscle atrophy, no effusion Microbiology Date/Time Source Procedure Growth Status 01/09/20 12:30 Indwelling Cath Urine Culture - Preliminary NO GROWTH AFTER 24 HOURS Resulted Current Medications Medications (Trade) Dose Ordered Sig/Ovi Route PRN Reason Start Time Stop Time Status Last Admin Dose Admin Acetaminophen (Tylenol) 650 mg Q4H PRN NG Temp >100.5 01/05/20 12:16 02/04/20 12:15 01/09/20 08:45 Aspirin (ASA) 81 mg DAILY NG 01/06/20 09:00 02/02/20 08:59 01/10/20 11:10 Atorvastatin Calcium (Lipitor) 20 mg BEDTIME NG 01/05/20 21:00 03/18/20 20:59 01/10/20 21:20 Barium Sulfate (Readi-Cat 2) 450 ml NOW PRN ORAL Radiology Procedure 01/10/20 09:00 01/12/20 08:54 Captopril (Capoten) 6.25 mg EVERY 8 HOURS NG 01/05/20 14:00 01/24/20 20:59 01/11/20 05:53 Folic Acid (Folate) 2 mg DAILY NG 01/06/20 09:00 01/29/20 11:59 01/10/20 11:10 Heparin Sodium (Porcine) (Heparin 5000 units/ml) 5,000 units EVERY 12 HOURS SUBQ 01/05/20 21:00 02/02/20 20:59 01/10/20 21:21 Iohexol (OMNIPAQUE-300 100ml) 100 ml NOW PRN INJ Radiology Procedure 01/10/20 09:00 01/12/20 08:54 Iohexol (OMNIPAQUE-300 100ml) 100 ml ONCE PRN INJ RADIOLOGY 01/10/20 09:00 02/09/20 08:59 Lansoprazole (Prevacid) 30 mg BID NG 01/05/20 18:00 01/28/20 17:59 01/10/20 18:45 Linezolid 300 ml @ 300 mls/hr Q12H IVPB 01/09/20 18:00 01/16/20 17:59 01/11/20 05:51 Nitroglycerin (Ntg) 1 patch Q24H TDERMAL 01/05/20 14:00 01/14/20 13:59 01/10/20 16:01 Piperacillin Sod/ Tazobactam Sod 3.375 gm/Sodium Chloride 110 ml @ 27.5 mls/hr EVERY 8 HOURS IVPB 01/09/20 14:00 01/14/20 13:59 01/11/20 06:57 Valproic Acid (Depakene) 500 mg EVERY 12 HOURS NG 01/05/20 21:00 01/17/20 23:14 01/10/20 21:20 Assessment/Plan Assessment/Plan PROBLEMS Confirmed COVID-19 virus infection Viral pneumonia Electrolyte imbalance NSTEMI (non-ST elevated myocardial infarction) Encephalopathy Dehydration ROSARIO (acute kidney injury) Staphylococcus epidermidis bacteremia Anemia Persistent leukocytosis with intermittent fevers ASSESSMENT Probably sepsis ( POA, with leukocytosis, lactic acidosis, evidence of infection ) Confirmed CoVID 19 infection Acute hypoxemic respiratory failure-resolved S epidermis bacteremia New leukocytosis with fevers, Proteus UTI Acute renal failure - RESOLVED Severe dehydration - IMPROVED Hypernatremia indicative of free water depletion Hypercalcemia likely due to dehydration Elevated hemoglobin likely secondary to hemoconcentration, now anemia Elevated troponin/NSTEMI Poor p.o. intake / failure to thrive Dementia Hypertension Generalized anxiety disorder Dysphagia , s/p EGD and PEG 01/04 Anemia of chronic disease Folate deficiency PLAN OF CARE * COVID-19 isolation status, confirmed 12/14, * repeat COVID 12/21- and 12/24 NGT -> off isolation now * on [facility] floor * monitor oxygenation closely, on RA or only on 1-2L nasal cannula * CXR prn only if worsening symptoms, CXR 12/16 clear lungs * fup CXR 12/25 done , given mild leukocytosis -no acute findings * last CRP 16.1 (up from previous), LDH 306 * worsening leukocytosis, fevers, recultured 12/31, fup with cx: UA + pyuria, UCX- GNB ; BCX / -NGTD * CXR 01/01 No focal consolidative process or pleural effusions, not likely PNA, leuk probably due to UTI * repeat CXR ( fevers, cough) * also check stool C dif * Vanco per ID, needs 2 wks for Staph epidermidis ( repeated BCX 12/20 still + with Staph epidermidis 09/02) -completed ; * repeated BCX 01/01 NGT * discussed with ID Dr Howell - Zosyn added for GN coverage 01/01, F/c changed 12/29 * UCX + Proteus, Zosyn changed to Aztreonam per ID x 10 days * stool C dif 01/03 NGT, * CXR 01/06 no acute process * unclear cause of persistent leukocytosis and intermittent fevers- * abx escalated by ID: aztreonam changed to Zosyn adn Zyvox, pt pancultured, F/ c was dc * UCX 01/08 NGTD,. BCX 01/08 pending * CT C/ A/P PENDING FOR TODAY * Completed 5 days of Plaquenil * s/p IVF , nephro on board * Monitor electrolytes and renal parameters * Echo 12/26 with pEF 65% and moderate left ventricular hypertrophy, no evidence of vegetation * on a/PLT therapy with ASA, statin , DUKE for afterload reduction * prior : NPO, NGTF's, KEY FILER eval , , strict aspiration precautions, unable to participate in swallow eval * Dr Toledo spoke with daughter Dayna Milton 12/27 ([phone]) and discussed further goals of care, she will need to discuss with other family members and will get back to us: either PEG placement or palliative care * awaiting for family decision, daughter decided to continue Full code and wants G tube * GI on board now, * s/p EGD and PEG 01/04, * asp precautions, GTF as per GI recs, tolerates * Full Code per prior documented ECP notes * Cont Depakote 500 mg bid from SNF * DVT ppx: heparin SQ * Anemia w/up c/w ACD and folate deficiency, started on folate replacement * stool OB negative * monitor HH with goal to keep Hgb above 7 Notes Reviewed: cardio, renal, ID Discussed with: nurses, this is a late note for 01/09 the time of this note does not reflect the actual time pt was seen: allen as seen on 01/09 at approximately 08:45 case discussed and evaluated by supervising physician Boby Toledo MD 01/11/20 1705: Subjective Allergies: Coded Allergies: MEMANTINE (Unverified Allergy, Unknown, 12/15/19) SERTRALINE (Unverified Allergy, Unknown, 12/15/19) Assessment/Plan Assessment/Plan Patient seen and examined with PHARMACEUTICAL SCIENTIST, agree with above A&P as it reflects our joint deliberations. Marge Gutierrez NP January 11, 2020 08:44 Boby Toledo MD January 11, 2020 17:05
--- NOTE | 2020-01-11 09:09 | Pulmonology Progress Note ---
Marge Gutierrez ONION FARMER 01/11/20 0909: Subjective ROS Limited/Unobtainable: No Interval Events: Allergies: Coded Allergies: MEMANTINE (Unverified Allergy, Unknown, 12/15/19) SERTRALINE (Unverified Allergy, Unknown, 12/15/19) Subjective leukocytosis persists, fever 100.4 at [place] SARS- CoV -2 by PCR 12/21 and 12/24 not detected s/p EGF and PEG 01/04 tolerates TF CXR 01/06 no definite acute process abx escalated by ID CT C/A/P done 01/09 Objective Last 24 Hour Vital Signs Date Time Temp Pulse Resp B/P (MAP) Pulse Ox O2 Delivery O2 Flow Rate FiO2 01/11/20 05:53 139/75 01/11/20 04:00 98.2 66 22 128/66 (86) 100 01/11/20 00:00 98.1 70 22 137/64 (88) 98 01/10/20 21:20 151/52 01/10/20 21:00 Room Air 01/10/20 20:00 98.2 73 20 151/52 (85) 99 01/10/20 16:01 122/69 01/10/20 16:01 122/69 01/10/20 16:00 98.1 68 18 104/58 (73) 99 01/10/20 12:00 97.9 69 20 122/69 (86) 98 Intake and Output 01/10/20 01/11/20 19:00 07:00 Output Total 1300 ml 800 ml Balance -1300 ml -800 ml Output Urine Total 1300 ml 800 ml # Bowel Movements 1 Objective General Appearance: WD/WN, in no acute distress elderly AA female HEENT: normocephalic, atraumatic, anicteric, mucous membranes moist, PERRL, NGT Respiratory/Chest: BS overall clear Cardiovascular: normal peripheral pulses, normal rate, Abdomen: normal bowel sounds, soft, non tender, , G tube with TF infusing, site clean, abd binder on Genitourinary: normal external genitalia Extremities: no cyanosis, no clubbing, edema BUE Skin: no rash, R elbow abrasion, no ulcers 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: 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 grossly normal, open eyes spontaneously but very poorly responsive Lymphatic: no neck adenopathy, no groin adenopathy Musculoskeletal: muscle atrophy, no effusion Microbiology Date/Time Source Procedure Growth Status 01/09/20 12:30 Indwelling Cath Urine Culture - Preliminary NO GROWTH AFTER 24 HOURS Resulted Current Medications Medications (Trade) Dose Ordered Sig/Ovi Route PRN Reason Start Time Stop Time Status Last Admin Dose Admin Acetaminophen (Tylenol) 650 mg Q4H PRN NG Temp >100.5 01/05/20 12:16 02/04/20 12:15 01/09/20 08:45 Aspirin (ASA) 81 mg DAILY NG 01/06/20 09:00 02/02/20 08:59 01/10/20 11:10 Atorvastatin Calcium (Lipitor) 20 mg BEDTIME NG 01/05/20 21:00 03/18/20 20:59 01/10/20 21:20 Barium Sulfate (Readi-Cat 2) 450 ml NOW PRN ORAL Radiology Procedure 01/10/20 09:00 01/12/20 08:54 Captopril (Capoten) 6.25 mg EVERY 8 HOURS NG 01/05/20 14:00 01/24/20 20:59 01/11/20 05:53 Folic Acid (Folate) 2 mg DAILY NG 01/06/20 09:00 01/29/20 11:59 01/10/20 11:10 Heparin Sodium (Porcine) (Heparin 5000 units/ml) 5,000 units EVERY 12 HOURS SUBQ 01/05/20 21:00 02/02/20 20:59 01/10/20 21:21 Iohexol (OMNIPAQUE-300 100ml) 100 ml NOW PRN INJ Radiology Procedure 01/10/20 09:00 01/12/20 08:54 Lansoprazole (Prevacid) 30 mg BID NG 01/05/20 18:00 01/28/20 17:59 01/10/20 18:45 Linezolid 300 ml @ 300 mls/hr Q12H IVPB 01/09/20 18:00 01/16/20 17:59 01/11/20 05:51 Nitroglycerin (Ntg) 1 patch Q24H TDERMAL 01/05/20 14:00 01/14/20 13:59 01/10/20 16:01 Piperacillin Sod/ Tazobactam Sod 3.375 gm/Sodium Chloride 110 ml @ 27.5 mls/hr EVERY 8 HOURS IVPB 01/09/20 14:00 01/14/20 13:59 01/11/20 06:57 Valproic Acid (Depakene) 500 mg EVERY 12 HOURS NG 01/05/20 21:00 01/17/20 23:14 01/10/20 21:20 Assessment/Plan Assessment/Plan PROBLEMS Confirmed COVID-19 virus infection Viral pneumonia Electrolyte imbalance NSTEMI (non-ST elevated myocardial infarction) Encephalopathy Dehydration ROSARIO (acute kidney injury) Staphylococcus epidermidis bacteremia Anemia Persistent leukocytosis with intermittent fevers ASSESSMENT Probably sepsis ( POA, with leukocytosis, lactic acidosis, evidence of infection ) Confirmed CoVID 19 infection Acute hypoxemic respiratory failure-resolved S epidermis bacteremia New leukocytosis with fevers, Proteus UTI Acute renal failure - RESOLVED Severe dehydration - IMPROVED Hypernatremia indicative of free water depletion Hypercalcemia likely due to dehydration Elevated hemoglobin likely secondary to hemoconcentration, now anemia Elevated troponin/NSTEMI Poor p.o. intake / failure to thrive Dementia Hypertension Generalized anxiety disorder Dysphagia , s/p EGD and PEG 01/04 Anemia of chronic disease Folate deficiency DVT BUE cephalic vein PLAN OF CARE * COVID-19 isolation status, confirmed 12/14, * repeat COVID 12/21- and 12/24 NGT -> off isolation now * on [facility] floor * CoVID 01/09 pending * monitor oxygenation closely, on RA or only on 1-2L nasal cannula * CXR prn only if worsening symptoms, CXR 12/16 clear lungs * fup CXR 12/25 done , given mild leukocytosis -no acute findings * last CRP 16.1 (up from previous), LDH 306 * worsening leukocytosis, fevers, recultured 12/31, fup with cx: UA + pyuria, UCX- GNB ; BCX 01/01 -NGTD * CXR 01/01 No focal consolidative process or pleural effusions, not likely PNA, leuk probably due to UTI * repeat CXR ( fevers, cough) * also check stool C dif * Vanco per ID, needs 2 wks for Staph epidermidis ( repeated BCX 12/20 still + with Staph epidermidis 09/02) -completed ; * repeated BCX 01/01 NGT * discussed with ID Dr Howell - Tin added for GN coverage 01/01, F/c changed 12/29 * UCX + Proteus, Zosyn changed to Aztreonam per ID x 10 days * stool C dif 01/03 NGT, * CXR 01/06 no acute process * unclear cause of persistent leukocytosis and intermittent fevers- * abx escalated by ID: aztreonam changed to Zosyn adn Zyvox, pt pancultured, F/ c was dc * UCX 01/08 NGTD,. BCX 01/08 pending * CT C/ A/P done 01/09, results noted ; no findings to account for persistent leukocytosis and intermittent fevers * skin thickening and infiltration of the subcutaneous fat in the right groin/ upper thigh region, noted on CT, no clinical evidence of cellulitis . 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 , , strict aspiration precautions, unable to participate in swallow eval * Dr Toledo spoke with daughter Dayna Milton 12/27 ([phone]) and discussed further goals of care, she will need to discuss with other family members and will get back to us: either PEG placement or palliative care * awaiting for family decision, daughter decided to continue Full code and wants G tube * GI on board now, * s/p EGD and PEG 01/04, * asp precautions, GTF as per GI recs, tolerates * Full Code per prior documented ECP notes * Cont Depakote 500 mg bid from SNF * DVT ppx: heparin SQ * Anemia w/up c/w ACD and folate deficiency, started on folate replacement * stool OB negative * monitor HH with goal to keep Hgb above 7 * venous Duplex BUE r/o DVT /bilateral edema * wound care for R elbow abrasion addendum at 15:30: venous Duplex + BUE cephalic best thrombus, given + COVID and hypercoagulability state, will start on a/c for 3 months start Lovenox and plan to transition to Eliquis upon dc discussed with ID , given NGT cx and imaging -> possible BM involvement, will get heme eval Notes Reviewed: cardio, renal, ID Discussed with: nurses, case discussed and evaluated by supervising physician Boby Toledo MD 01/11/20 1711: Subjective Allergies: Coded Allergies: MEMANTINE (Unverified Allergy, Unknown, 12/15/19) SERTRALINE (Unverified Allergy, Unknown, 12/15/19) Assessment/Plan Assessment/Plan Patient seen and examined with ONION FARMER, agree with above A&P as it reflects our joint deliberations. Tm 100 W[address] CAP without any infectious source, BUE duplex with B cephalic DVT. D/W Dr. Howell who is concerned for a marrow source of persistent leukocytosis and low grade fevers. Will F/U NM WBC scan and consult heme with consideration for a BM Bx. UPEP, SPEP, reticulocyte count, peripheral smear and BMBx ordered. Also, given hypercoag state a/w COVID and BUE DVT will start treatment dose LMWH and plan to treat for @ least 3 months. Will likely transition to DOAC prior to D/C. D/W RN @ bedside and Marge Mishra NP January 11, 2020 09:09 Boby Toledo MD January 11, 2020 17:11
[2020-01-11] MEDS: Aspirin Baby 81mg NG SCH (09:48)
[2020-01-11] MEDS: Heparin 5000 units/ml inj SUBQ SCH (09:50)
[2020-01-11] MEDS: Valproic Acid 250mg/5ml Liquid NG SCH ×2 (09:51→21:54)
--- NOTE | 2020-01-11 11:44 | Nephrology Progress Note ---
Assessment/Plan Problem List: (1) ROSARIO (acute kidney injury) (2) Dehydration (3) Electrolyte imbalance (4) NSTEMI (non-ST elevated myocardial infarction) (5) COVID-19 virus infection (6) Anemia Assessment Acute renal failure Severe dehydration Hypernatremia indicative of free water depletion Hypercalcemia likely due to dehydration Elevated hemoglobin likely secondary to hemoconcentration Elevated troponin Poor p.o. intake / failure to thrive Dementia Hypertension Exposure to COVID-19 Plan Covid19 test positive Received PEG today January 04 WBCs carlene over 15,000 Stable from renal standpoint to view Continue per ID advice Previously: Discontinue potassium chloride p.o. IV Protonix to Prevacid via NG tube At the folic acid to medication Watch declining hemoglobin Aspirin 2D echocardiogram, results still pending Nitropaste Avoid nephrotoxic's Monitor renal parameters Monitor hemoglobin hematocrit Avoid mind altering medication in view of severe lethargy Per orders Subjective ROS Limited/Unobtainable: No Constitutional: Reports: malaise Objective Objective Last 24 Hour Vital Signs Date Time Temp Pulse Resp B/P (MAP) Pulse Ox O2 Delivery O2 Flow Rate FiO2 01/11/20 05:53 139/75 01/11/20 04:00 98.2 66 22 128/66 (86) 100 01/11/20 00:00 98.1 70 22 137/64 (88) 98 01/10/20 21:20 151/52 01/10/20 21:00 Room Air 01/10/20 20:00 98.2 73 20 151/52 (85) 99 01/10/20 16:01 122/69 01/10/20 16:01 122/69 01/10/20 16:00 98.1 68 18 104/58 (73) 99 01/10/20 12:00 97.9 69 20 122/69 (86) 98 Intake and Output 01/10/20 01/11/20 19:00 07:00 Output Total 1300 ml 800 ml Balance -1300 ml -800 ml Output Urine Total 1300 ml 800 ml # Bowel Movements 1 Today's blood work still pending Height (Feet): 5 Height (Inches): 0.00 Weight (Pounds): 153 General Appearance: no apparent distress, lethargic Respiratory/Chest: decreased breath sounds Abdomen: other - GT feeding in process Objective No change Robert Foreman MD January 11, 2020 11:44
[2020-01-11 12:00] VITALS: BP 128/69
--- NOTE | 2020-01-11 12:17 | Surgery Progress Note ---
Surgery Progress Note Subjective Symptoms: improved Additional Comments no acute events comfortable stable Objective Last 24 Hour Vital Signs Date Time Temp Pulse Resp B/P (MAP) Pulse Ox O2 Delivery O2 Flow Rate FiO2 01/11/20 05:53 139/75 01/11/20 04:00 98.2 66 22 128/66 (86) 100 01/11/20 00:00 98.1 70 22 137/64 (88) 98 01/10/20 21:20 151/52 01/10/20 21:00 Room Air 01/10/20 20:00 98.2 73 20 151/52 (85) 99 01/10/20 16:01 122/69 01/10/20 16:01 122/69 01/10/20 16:00 98.1 68 18 104/58 (73) 99 I&O Intake and Output 01/10/20 01/11/20 19:00 07:00 Output Total 1300 ml 800 ml Balance -1300 ml -800 ml Output Urine Total 1300 ml 800 ml # Bowel Movements 1 Dressing: dry Wound: clean Cardiovascular: RSR Respiratory: clear Abdomen: soft, non-tender, present bowel sounds Extremities: no edema, no tenderness, no cyanosis Plan Problems: (1) Leukocytosis Assessment & Plan: Acute leukocytosis. Microbiology identified staph E. On antibiotics per infectious disease. WBC trending down. Complete examination identified no external source of potential staph infection in the blood bacteremia DTI noted Continue antibiotics as per infectious disease Trend labs persistent wbc micro reviewed as above worsening ID input appreciated We will follow with recommendations (2) Sepsis Assessment & Plan: negative x 2 CO VID Pneumonia improving Recent acute leukocytosis trending down Course of hydroxy completed stable Improving Continue current care plan Abnormal LFTs identified Hold on abdominal ultrasound for now nutritional optimization turn q2h off load pressures cont tube feeds at goal fever improving wbc improving DAILY ESTIMATED NEEDS: Needs based on ROSARIO, sepsis, Cardiac/ 52kg abw 25-30 kcals/kg [id number] total kcals 1-2 g protein/kg 52-104 g total protein 25-30 mL/kg 5039-4480 total fluid mLs NUTRITION DIAGNOSIS: Swallowing difficulty R/T dysphagia, AMS, lethargy as evidenced by NPO at this time, HYDROTEL OPERATOR eval pending, FTT dx, s/p PEG placement. CURRENT TF:Jevity 1.2 @ 50ml/hr x 24 hrs ENTERAL NUTRITION RECOMMENDATIONS: Jevity 1.2 @ 50ml/hr x 24 hrs to provide 1200ml, 1440kcal, 66g prot, 968ml free water * Maintain current TF * HOB over 30 degrees * Water flush of 150ml q 8 hrs --- W/ consistently elev BGs, rec Glucerna 1.5 (Glucerna 1.2 is out of stock) @ goal rate of 40ml/hr x 24 hrs to provide 960ml, 1440kcal, 79g prot, 729ml free water. ADDITIONAL RECOMMENDATIONS: * Calibrated bedscale wt for accurate CBW- discrepency wt in EMR noted per SNF record: HT=60", XN=463.4lbs (December 2019) - RECALIBRATE BEDSCALE (BEDSCALE READS "0" ON 01/09) * Monitor lytes, replete as needed * Monitor BGs, need for carb controlled TF (3) Staphylococcus epidermidis bacteremia Assessment & Plan: As above Andi Valera January 11, 2020 12:17
--- NOTE | 2020-01-11 12:39 | Infectious Diseases Prog Note ---
Assessment/Plan Problems: (1) Leukocytosis Assessment & Plan: with recurrent fever while on aztreonam , withn no evidence of new infection and negative panculture and CT image for any sourtce of infection , suspect bone marrow pathology . await repeated Blood culture x 2, urine culture showed no growth , CXR no acute or new infiltrates or effusion , her Harris catheter was changed yesterday on January 08. continue zosyn and zyvox pending blood cultures. will orde indium scan as a final step before bone marrow eval (2) Catheter-associated urinary tract infection Assessment & Plan: with PROTEUS MIRABILIS , with persistent fever and leukocytosis while on aztreonam , head antibiotic was switched to to zosyn and zyvox to broaden her coverage, repeated urine culture showed no growth and her Harris catheter was changed (3) Sepsis Assessment & Plan: with fever and leukocytosis , source ? await repeated blood cultures 2, CXR showed no new infiltration or effusion, and urine culture showed no growth, continue zosy and zyvox pending blood cultures. (4) COVID-19 virus infection Assessment & Plan: may remove from enhanced droplet isolation, S/P hydroxychloroquin with zinc and vitamin C for five days total.repeated PCR test times two so far is negative. (5) Viral pneumonia Assessment & Plan: due to COVID 19, S/P hydroxychloroquine , with zinc and vitamin C for five days, Repeated PCR test is negative (6) ROSARIO (acute kidney injury) Assessment & Plan: suspect due to dehydration and poor oral intake improving monitor renal function avoid nephrotoxic's (7) NSTEMI (non-ST elevated myocardial infarction) Assessment & Plan: could be due to COVID 19, cardiology is following monitor troponin level Subjective Allergies: Coded Allergies: MEMANTINE (Unverified Allergy, Unknown, 12/15/19) SERTRALINE (Unverified Allergy, Unknown, 12/15/19) Subjective she had no fever today , no chills, still has dry cough but no phlegm or SOB, responsive but confused , no diarrhea so far , urine is clear and Harris catheter was changed yesterday Objective Vital Signs Last 24 Hour Vital Signs Date Time Temp Pulse Resp B/P (MAP) Pulse Ox O2 Delivery O2 Flow Rate FiO2 01/11/20 05:53 139/75 01/11/20 04:00 98.2 66 22 128/66 (86) 100 01/11/20 00:00 98.1 70 22 137/64 (88) 98 01/10/20 21:20 151/52 01/10/20 21:00 Room Air 01/10/20 20:00 98.2 73 20 151/52 (85) 99 01/10/20 16:01 122/69 01/10/20 16:01 122/69 01/10/20 16:00 98.1 68 18 104/58 (73) 99 Height (Feet): 5 Height (Inches): 0.00 Weight (Pounds): 153 General Appearance: WD/WN, no acute distress HEENT: normocephalic, atraumatic, anicteric, mucous membranes moist, PERRL Respiratory/Chest: chest wall non-tender, lungs clear, normal breath sounds, no respiratory distress, no accessory muscle use Cardiovascular: normal peripheral pulses, normal rate, regular rhythm, no gallop/murmur, no JVD Abdomen: normal bowel sounds, soft, non tender, no organomegaly, non distended , no mass, no scars Genitourinary: normal external genitalia Extremities: no cyanosis, no clubbing Skin: no rash, no lesions 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, alert, responsive Lymphatic: no neck adenopathy, no groin adenopathy Musculoskeletal: normal muscle bulk, no effusion Microbiology Date/Time Source Procedure Growth Status 01/09/20 14:15 Blood Blood Culture - Preliminary NO GROWTH AFTER 24 HOURS Resulted 01/09/20 14:10 Blood Blood Culture - Preliminary NO GROWTH AFTER 24 HOURS Resulted 01/09/20 12:30 Indwelling Cath Urine Culture - Preliminary NO GROWTH AFTER 24 HOURS Resulted Current Medications Medications (Trade) Dose Ordered Sig/Voi Route PRN Reason Start Time Stop Time Status Last Admin Dose Admin Acetaminophen (Tylenol) 650 mg Q4H PRN NG Temp >100.5 01/05/20 12:16 02/04/20 12:15 01/09/20 08:45 Aspirin (ASA) 81 mg DAILY NG 01/06/20 09:00 02/02/20 08:59 01/11/20 09:48 Atorvastatin Calcium (Lipitor) 20 mg BEDTIME NG 01/05/20 21:00 03/18/20 20:59 01/10/20 21:20 Barium Sulfate (Readi-Cat 2) 450 ml NOW PRN ORAL Radiology Procedure 01/10/20 09:00 01/12/20 08:54 Captopril (Capoten) 6.25 mg EVERY 8 HOURS NG 01/05/20 14:00 01/24/20 20:59 01/11/20 05:53 Folic Acid (Folate) 2 mg DAILY NG 01/06/20 09:00 01/29/20 11:59 01/11/20 09:53 Heparin Sodium (Porcine) (Heparin 5000 units/ml) 5,000 units EVERY 12 HOURS SUBQ 01/05/20 21:00 02/02/20 20:59 01/11/20 09:50 Iohexol (OMNIPAQUE-300 100ml) 100 ml NOW PRN INJ Radiology Procedure 01/10/20 09:00 01/12/20 08:54 Lansoprazole (Prevacid) 30 mg BID NG 01/05/20 18:00 01/28/20 17:59 01/11/20 09:48 Linezolid 300 ml @ 300 mls/hr Q12H IVPB 01/09/20 18:00 01/16/20 17:59 01/11/20 05:51 Nitroglycerin (Ntg) 1 patch Q24H TDERMAL 01/05/20 14:00 01/14/20 13:59 01/10/20 16:01 Piperacillin Sod/ Tazobactam Sod 3.375 gm/Sodium Chloride 110 ml @ 27.5 mls/hr EVERY 8 HOURS IVPB 01/09/20 14:00 01/14/20 13:59 01/11/20 06:57 Valproic Acid (Depakene) 500 mg EVERY 12 HOURS NG 01/05/20 21:00 01/17/20 23:14 01/11/20 09:51 Sukhjinder Howell M.D. January 11, 2020 12:39
--- NOTE | 2020-01-11 13:55 | Cardiology Progress Note ---
Assessment/Plan Assessment/Plan 1. Hdh-OX-gipqntxwn myocardial infarction,related to demand vs from covid induced myonecrosis , doubt plaque rupture or cytokine storm 2. Acute renal failure in the setting of volume depletion. 3. Hypernatremia secondary to volume depletion. 4. 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 5. Dementia. 6. Lactic acidosis. 7. History of bradycardia secondary to medications. 8. bacteremia low grade fever agian yest covid status now neg on 2 check but a new one sent today on sq heparin for dvt ppx echo prelim noted no sig abn peg performed await snf placement reepat bc form yest heg Subjective ROS Limited/Unobtainable: Yes Subjective per rnPt. nonverbal, NC 2 L, no indications of respiratory distress, no indications of pain. IV left hand 24g intact and patent. Harris intact and secured, draining yellow urine well. Gtube running [email or web address] 1.2 at 50cc/hr. Objective Last 24 Hour Vital Signs Date Time Temp Pulse Resp B/P (MAP) Pulse Ox O2 Delivery O2 Flow Rate FiO2 01/11/20 12:00 97.9 71 18 128/69 (88) 98 01/11/20 09:00 Room Air 01/11/20 08:00 97.7 71 20 122/61 (81) 97 01/11/20 05:53 139/75 01/11/20 04:00 98.2 66 22 128/66 (86) 100 01/11/20 00:00 98.1 70 22 137/64 (88) 98 01/10/20 21:20 151/52 01/10/20 21:00 Room Air 01/10/20 20:00 98.2 73 20 151/52 (85) 99 01/10/20 16:01 122/69 01/10/20 16:01 122/69 01/10/20 16:00 98.1 68 18 104/58 (73) 99 General Appearance: no apparent distress Intake and Output 01/10/20 01/11/20 19:00 07:00 Output Total 1300 ml 800 ml Balance -1300 ml -800 ml Output Urine Total 1300 ml 800 ml # Bowel Movements 1 Microbiology Date/Time Source Procedure Growth Status 01/09/20 14:15 Blood Blood Culture - Preliminary NO GROWTH AFTER 24 HOURS Resulted 01/09/20 14:10 Blood Blood Culture - Preliminary NO GROWTH AFTER 24 HOURS Resulted 01/09/20 12:30 Indwelling Cath Urine Culture - Preliminary NO GROWTH AFTER 24 HOURS Resulted Kendell Rosen MD January 11, 2020 13:55
[2020-01-11] MEDS: Nitroglycerin Patch 0.4mg TDERMAL SCH (14:59)
[2020-01-11] MEDS ORDERED: Heparin 1000 units/ml 1ml Vial INJ PRN (15:15)
--- NOTE | 2020-01-11 15:21 | Diagnostic Imaging Report ---
Indication: Bilateral arm edema Technique: Grayscale and duplex images of the bilateral upper extremity veins Comparison: none Findings: On the right, grayscale and duplex images demonstrate thrombus within the cephalic vein of the upper arm. This results in noncompressibility and absence of flow. The remaining venous segments are patent, demonstrating normal flow on Doppler imaging and normal compressibility. On the left, grayscale and duplex images demonstrate thrombus within the cephalic vein in the forearm, resulting in noncompressibility. The remaining venous segments demonstrate patency, normal Doppler flow, and normal compressibility Impression:
[2020-01-11 16:00] VITALS: BP 132/68
[2020-01-11 20:00] VITALS: BP 155/89
[2020-01-11] MEDS: Atorvastatin 20mg tab NG SCH (21:53)
[2020-01-11] MEDS: Enoxaparin 80mg Inj SUBQ SCH (21:58)
[2020-01-12] VITALS: BP 141/56
[2020-01-12 04:00] VITALS: BP 142/66
[2020-01-12] MEDS: Captopril 12.5mg tab NG SCH ×3 (05:49→21:39)
[2020-01-12] MEDS: Piperacillin/Tazobactam 3.375 GM in NS 110 ML IVPB SCH ×3 (06:55→21:34)
[2020-01-12 08:00] VITALS: BP 125/56
[2020-01-12] MEDS: Aspirin Baby 81mg NG SCH (08:24)
[2020-01-12] MEDS: Valproic Acid 250mg/5ml Liquid NG SCH ×2 (08:25→21:43)
[2020-01-12] MEDS: Enoxaparin 80mg Inj SUBQ SCH ×2 (08:26→21:41)
--- NOTE | 2020-01-12 09:17 | General Progress Note ---
Assessment/Plan Status: unchanged Assessment/Plan: 1. The patient is an 89-year-old female with current medical problem as COVID positive pneumonia resolving. 2. Diabetes. 3. Anemia. 4. Abnormal liver function tests. 5. Sepsis. 6. Dysphagia. 7. Non-ST elevation myocardial infarction. 8. Dementia. 9. Encephalopathy. 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 s/p GT placement GTF GT care monitor for residuals Subjective ROS Limited/Unobtainable: No Allergies: Coded Allergies: MEMANTINE (Unverified Allergy, Unknown, 12/15/19) SERTRALINE (Unverified Allergy, Unknown, 12/15/19) Objective Last 24 Hour Vital Signs Date Time Temp Pulse Resp B/P (MAP) Pulse Ox O2 Delivery O2 Flow Rate FiO2 01/12/20 05:49 142/66 01/12/20 04:00 97.9 66 21 142/66 (91) 99 01/12/20 00:00 98.2 72 24 141/56 (84) 99 01/11/20 21:55 155/89 01/11/20 21:00 Room Air 01/11/20 20:00 98.1 77 24 155/89 (111) 100 01/11/20 16:00 98.2 69 20 132/68 (89) 99 01/11/20 16:00 98.2 69 20 132/68 (89) 99 01/11/20 14:59 128/69 01/11/20 14:58 128/69 01/11/20 12:00 97.9 71 18 128/69 (88) 98 Intake and Output 01/11/20 01/12/20 19:00 07:00 Intake Total 1070.0 ml 1160.0 ml Output Total 1200 ml 950 ml Balance -130.0 ml 210.0 ml Intake Free Water 200 ml 200 ml IV Total 220.0 ml 410.0 ml Tube Feeding 650 ml 550 ml Output Urine Total 1200 ml 950 ml # Bowel Movements 3 1 Laboratory Tests 01/11/20 20:10: Urine Total Protein [Pending], Urine Albumin (%) [Pending], Urine Alpha-1- Globulins (%) [Pending], Urine Xecvh-2-Uznlnehte (%) [Pending], Urine Beta- Globulin (%) [Pending], Urine Gamma Globulin (%) [Pending], Ur Protein Electrophoresis M-Elia [Pending], Urine Protein Electrophoresis Intrp [Pending] Height (Feet): 5 Height (Inches): 0.00 Weight (Pounds): 155 General Appearance: no apparent distress EENT: normal ENT inspection, TMs normal Neck: supple Cardiovascular: normal rate Respiratory/Chest: decreased breath sounds Abdomen: normal bowel sounds, non tender, soft Extremities: non-tender Sven Villalta MD January 12, 2020 09:17
[2020-01-12 12:00] VITALS: BP 112/66
[2020-01-12 13:08] LABS: BASOPHILS % (AUTO) 0.8 % (0.0-2.0); EOSINOPHILS % (AUTO) 0.9 % (0.0-3.0); HEMATOCRIT 28.3 % (37.0-47.0); HEMOGLOBIN 9.6 G/DL (12.0-16.0); LYMPHOCYTES % (AUTO) 22.8 % (20.0-45.0); MEAN CORPUSCULAR VOLUME 94 FL (80-99); MONOCYTES % (AUTO) 5.7 % (1.0-10.0); NEUTROPHILS % (AUTO) 69.7 % (45.0-75.0); PLATELET COUNT 586 K/UL (150-450); RED BLOOD COUNT 3.03 M/UL (4.20-5.40); RED CELL DISTRIBUTION WIDTH 13.1 % (11.6-14.8); WHITE BLOOD COUNT 9.2 K/UL (4.8-10.8)
[2020-01-12 13:28] LABS: ALANINE AMINOTRANSFERASE 34 U/L (12-78); ALBUMIN 1.3 G/DL (3.4-5.0); ALBUMIN/GLOBULIN RATIO 0.3 (1.0-2.7); ALKALINE PHOSPHATASE 118 U/L (46-116); ANION GAP 5 mmol/L (5-15); ASPARTATE AMINO TRANSFERASE 31 U/L (15-37); BILIRUBIN,TOTAL 0.1 MG/DL (0.2-1.0); BLOOD UREA NITROGEN 7 mg/dL (7-18); CALCIUM 8.4 MG/DL (8.5-10.1); CARBON DIOXIDE 31 MMOL/L (21-32); CHLORIDE 105 MMOL/L (98-107); CREATININE 0.6 MG/DL (0.55-1.30); LACTATE DEHYDROGENASE 195 U/L (81-234); POTASSIUM 3.7 MMOL/L (3.5-5.1); SODIUM 141 MMOL/L (136-145)
[2020-01-12] MEDS: Nitroglycerin Patch 0.4mg TDERMAL SCH (13:35)
--- NOTE | 2020-01-12 14:09 | Nephrology Progress Note ---
Assessment/Plan Problem List: (1) ROSARIO (acute kidney injury) (2) Dehydration (3) Electrolyte imbalance (4) NSTEMI (non-ST elevated myocardial infarction) (5) COVID-19 virus infection (6) Anemia Assessment Acute renal failure Severe dehydration Hypernatremia indicative of free water depletion Hypercalcemia likely due to dehydration Elevated hemoglobin likely secondary to hemoconcentration Elevated troponin Poor p.o. intake / failure to thrive Dementia Hypertension Exposure to COVID-19 Plan Covid19 test positive Received PEG today January 04 WBCs carlene over 15,000, but now is WNL Stable from renal standpoint to view Continue per ID advice Previously: Discontinue potassium chloride p.o. IV Protonix to Prevacid via NG tube At the folic acid to medication Watch declining hemoglobin Aspirin 2D echocardiogram, results still pending Nitropaste Avoid nephrotoxic's Monitor renal parameters Monitor hemoglobin hematocrit Avoid mind altering medication in view of severe lethargy Per orders Subjective ROS Limited/Unobtainable: No Constitutional: Reports: malaise, weakness Objective Objective Last 24 Hour Vital Signs Date Time Temp Pulse Resp B/P (MAP) Pulse Ox O2 Delivery O2 Flow Rate FiO2 01/12/20 13:35 112/66 01/12/20 13:34 112/66 01/12/20 09:00 Room Air 01/12/20 08:00 97.4 67 20 125/56 (79) 99 01/12/20 05:49 142/66 01/12/20 04:00 97.9 66 21 142/66 (91) 99 01/12/20 00:00 98.2 72 24 141/56 (84) 99 01/11/20 21:55 155/89 01/11/20 21:00 Room Air 01/11/20 20:00 98.1 77 24 155/89 (111) 100 01/11/20 16:00 98.2 69 20 132/68 (89) 99 01/11/20 16:00 98.2 69 20 132/68 (89) 99 01/11/20 14:59 128/69 01/11/20 14:58 128/69 Intake and Output 01/11/20 01/12/20 19:00 07:00 Intake Total 1070.0 ml 1160.0 ml Output Total 1200 ml 950 ml Balance -130.0 ml 210.0 ml Intake Free Water 200 ml 200 ml IV Total 220.0 ml 410.0 ml Tube Feeding 650 ml 550 ml Output Urine Total 1200 ml 950 ml # Bowel Movements 3 1 Laboratory Tests 01/11/20 20:10: Urine Total Protein [Pending], Urine Albumin (%) [Pending], Urine Alpha-1- Globulins (%) [Pending], Urine Drwhc-4-Jyeppnedy (%) [Pending], Urine Beta- Globulin (%) [Pending], Urine Gamma Globulin (%) [Pending], Ur Protein Electrophoresis M-Elia [Pending], Urine Protein Electrophoresis Intrp [Pending] 01/12/20 12:50: White Blood Count 9.2, Red Blood Count 3.03L, Hemoglobin 9.6L, Hematocrit 28.3L , Mean Corpuscular Volume 94, Mean Corpuscular Hemoglobin 31.8H, Mean Corpuscular Hemoglobin Concent 34.0, Red Cell Distribution Width 13.1, Platelet Count 586H, Mean Platelet Volume 5.8L, Neutrophils (%) (Auto) 69.7, Lymphocytes (%) (Auto) 22.8, Monocytes (%) (Auto) 5.7, Eosinophils (%) (Auto) 0.9, Basophils (%) (Auto) 0.8, Reticulocyte Count [Pending], Haptoglobin [Pending], D -Dimer 4.86H, Sodium Level 141, Potassium Level 3.7, Chloride Level 105, Carbon Dioxide Level 31, Anion Gap 5, Blood Urea Nitrogen 7, Creatinine 0.6, Estimat Glomerular Filtration Rate > 60, Glucose Level 136H, Calcium Level 8.4L, Phosphorus Level 3.0, Magnesium Level 1.9, Total Bilirubin 0.1L, Aspartate Amino Transf (AST/SGOT) 31, Alanine Aminotransferase (ALT/SGPT) 34, Alkaline Phosphatase 118H, Lactate Dehydrogenase 195, C-Reactive Protein, Quantitative 5.7H, Total Protein 6.2L, Total Protein (PEP) [Pending], Albumin 1.3L, Albumin ( PEP) [Pending], Globulin 4.9, Globulin (PEP) [Pending], Albumin/Globulin Ratio [ Pending], Lgkdc-8-Ouomucpgs [Pending], Mxrld-3-Mwchesikk [Pending], Beta Globulins [Pending], Beta Gamma Globulin [Pending], PEP Abnormal Protein Bands [ Pending], Protein Electrophoresis Interpret [Pending] Height (Feet): 5 Height (Inches): 0.00 Weight (Pounds): 155 General Appearance: no apparent distress Cardiovascular: normal rate Respiratory/Chest: decreased breath sounds Abdomen: soft Objective No change Robert Foreman MD January 12, 2020 14:09
--- NOTE | 2020-01-12 14:37 | Pulmonology Progress Note ---
Marge Gutierrez TYPEWRITER TESTER 01/12/20 1436: Subjective ROS Limited/Unobtainable: No Interval Events: Allergies: Coded Allergies: MEMANTINE (Unverified Allergy, Unknown, 12/15/19) SERTRALINE (Unverified Allergy, Unknown, 12/15/19) Subjective leukocytosis resolved, no fevers for the last 24 hrs SARS- CoV -2 by PCR 12/21 , 12/24 . 01/09 not detected s/p EGF and PEG 6 tolerates TF CXR 01/06 no definite acute process Venous Duplex + DVT cephalic vein BUE, started on Lovenox Objective Last 24 Hour Vital Signs Date Time Temp Pulse Resp B/P (MAP) Pulse Ox O2 Delivery O2 Flow Rate FiO2 01/12/20 13:35 112/66 01/12/20 13:34 112/66 01/12/20 09:00 Room Air 01/12/20 08:00 97.4 67 20 125/56 (79) 99 01/12/20 05:49 142/66 01/12/20 04:00 97.9 66 21 142/66 (91) 99 01/12/20 00:00 98.2 72 24 141/56 (84) 99 01/11/20 21:55 155/89 01/11/20 21:00 Room Air 01/11/20 20:00 98.1 77 24 155/89 (111) 100 01/11/20 16:00 98.2 69 20 132/68 (89) 99 01/11/20 16:00 98.2 69 20 132/68 (89) 99 01/11/20 14:59 128/69 01/11/20 14:58 128/69 Intake and Output 01/11/20 01/12/20 19:00 07:00 Intake Total 1070.0 ml 1160.0 ml Output Total 1200 ml 950 ml Balance -130.0 ml 210.0 ml Intake Free Water 200 ml 200 ml IV Total 220.0 ml 410.0 ml Tube Feeding 650 ml 550 ml Output Urine Total 1200 ml 950 ml # Bowel Movements 3 1 Objective General Appearance: WD/WN, in no acute distress elderly AA female HEENT: normocephalic, atraumatic, anicteric, mucous membranes moist, PERRL, NGT Respiratory/Chest: BS overall clear Cardiovascular: normal peripheral pulses, normal rate, Abdomen: normal bowel sounds, soft, non tender, , G tube with TF infusing, site clean, abd binder on Genitourinary: normal external genitalia Extremities: no cyanosis, no clubbing, edema BUE Skin: no rash, R elbow abrasion, no ulcers 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, open eyes spontaneously , but poorly responsive Lymphatic: no neck adenopathy, no groin adenopathy Musculoskeletal: muscle atrophy, no effusion Lymphatic: no groin adenopathy Microbiology Date/Time Source Procedure Growth Status 01/10/20 16:30 Nasopharynx Coronavirus COVID-19 PCR ([facility]) - Final Complete Laboratory Tests 01/11/20 20:10: Urine Total Protein [Pending], Urine Albumin (%) [Pending], Urine Alpha-1- Globulins (%) [Pending], Urine Jamrq-4-Mlyjsherv (%) [Pending], Urine Beta- Globulin (%) [Pending], Urine Gamma Globulin (%) [Pending], Ur Protein Electrophoresis M-Elia [Pending], Urine Protein Electrophoresis Intrp [Pending] 01/12/20 12:50: White Blood Count 9.2, Red Blood Count 3.03L, Hemoglobin 9.6L, Hematocrit 28.3L , Mean Corpuscular Volume 94, Mean Corpuscular Hemoglobin 31.8H, Mean Corpuscular Hemoglobin Concent 34.0, Red Cell Distribution Width 13.1, Platelet Count 586H, Mean Platelet Volume 5.8L, Neutrophils (%) (Auto) 69.7, Lymphocytes (%) (Auto) 22.8, Monocytes (%) (Auto) 5.7, Eosinophils (%) (Auto) 0.9, Basophils (%) (Auto) 0.8, Reticulocyte Count 2.9H, Haptoglobin [Pending], D- Dimer 4.86H, Sodium Level 141, Potassium Level 3.7, Chloride Level 105, Carbon Dioxide Level 31, Anion Gap 5, Blood Urea Nitrogen 7, Creatinine 0.6, Estimat Glomerular Filtration Rate > 60, Glucose Level 136H, Calcium Level 8.4L, Phosphorus Level 3.0, Magnesium Level 1.9, Total Bilirubin 0.1L, Aspartate Amino Transf (AST/SGOT) 31, Alanine Aminotransferase (ALT/SGPT) 34, Alkaline Phosphatase 118H, Lactate Dehydrogenase 195, C-Reactive Protein, Quantitative 5.7H, Total Protein 6.2L, Total Protein (PEP) [Pending], Albumin 1.3L, Albumin ( PEP) [Pending], Globulin 4.9, Globulin (PEP) [Pending], Albumin/Globulin Ratio [ Pending], Oxakc-3-Lmosemqce [Pending], Sqhvw-9-Rplpcwcsq [Pending], Beta Globulins [Pending], Beta Gamma Globulin [Pending], PEP Abnormal Protein Bands [ Pending], Protein Electrophoresis Interpret [Pending] Current Medications Medications (Trade) Dose Ordered Sig/Ovi Route PRN Reason Start Time Stop Time Status Last Admin Dose Admin Acetaminophen (Tylenol) 650 mg Q4H PRN NG Temp >100.5 01/05/20 12:16 02/04/20 12:15 01/09/20 08:45 Aspirin (ASA) 81 mg DAILY NG 01/06/20 09:00 02/02/20 08:59 01/12/20 08:24 Atorvastatin Calcium (Lipitor) 20 mg BEDTIME NG 01/05/20 21:00 03/18/20 20:59 01/11/20 21:53 Captopril (Capoten) 6.25 mg EVERY 8 HOURS NG 01/05/20 14:00 01/24/20 20:59 01/12/20 13:34 Enoxaparin Sodium (Lovenox) 70 mg EVERY 12 HOURS SUBQ 01/11/20 21:00 04/10/20 20:59 01/12/20 08:26 Folic Acid (Folate) 2 mg DAILY NG 01/06/20 09:00 01/29/20 11:59 01/12/20 08:32 Heparin Sodium (Porcine) (Heparin) 2,000 unit ONCE PRN INJ radiology procedure 01/11/20 15:15 01/13/20 15:14 Lansoprazole (Prevacid) 30 mg BID NG 01/05/20 18:00 01/28/20 17:59 01/12/20 08:25 Linezolid 300 ml @ 300 mls/hr Q12H IVPB 01/09/20 18:00 01/16/20 17:59 01/12/20 05:48 Nitroglycerin (Ntg) 1 patch Q24H TDERMAL 01/05/20 14:00 01/14/20 13:59 01/12/20 13:35 Piperacillin Sod/ Tazobactam Sod 3.375 gm/Sodium Chloride 110 ml @ 27.5 mls/hr EVERY 8 HOURS IVPB 01/09/20 14:00 01/14/20 13:59 01/12/20 13:41 Valproic Acid (Depakene) 500 mg EVERY 12 HOURS NG 01/05/20 21:00 01/17/20 23:14 01/12/20 08:25 Assessment/Plan Assessment/Plan PROBLEMS Confirmed COVID-19 virus infection Viral pneumonia Electrolyte imbalance NSTEMI (non-ST elevated myocardial infarction) Encephalopathy Dehydration ROSARIO (acute kidney injury) Staphylococcus epidermidis bacteremia Anemia Persistent leukocytosis with intermittent fevers ASSESSMENT Probably sepsis ( POA, with leukocytosis, lactic acidosis, evidence of infection ) Confirmed CoVID 19 infection Acute hypoxemic respiratory failure-resolved S epidermis bacteremia New leukocytosis with fevers, Proteus UTI Acute renal failure - RESOLVED Severe dehydration - IMPROVED Hypernatremia indicative of free water depletion Hypercalcemia likely due to dehydration Elevated hemoglobin likely secondary to hemoconcentration, now anemia Elevated troponin/NSTEMI Poor p.o. intake / failure to thrive Dementia Hypertension Generalized anxiety disorder Dysphagia , s/p EGD and PEG 01/04 Anemia of chronic disease Folate deficiency DVT BUE cephalic vein PLAN OF CARE * COVID-19 isolation status, confirmed 12/14, * repeat COVID 12/21- and 12/24 NGT -> off isolation now * on [facility] floor * CoVID 01/09 pending * monitor oxygenation closely, on RA or only on 1-2L nasal cannula * CXR prn only if worsening symptoms, CXR 12/16 clear lungs * fup CXR 12/25 done , given mild leukocytosis -no acute findings * last CRP 16.1 (up from previous), LDH 306 * worsening leukocytosis, fevers, recultured 12/31, fup with cx: UA + pyuria, UCX- GNB ; BCX 01/01 -NGTD * CXR 01/01 No focal consolidative process or pleural effusions, not likely PNA, leuk probably due to UTI * repeat CXR ( fevers, cough) * also check stool C dif * Vanco per ID, needs 2 wks for Staph epidermidis ( repeated BCX 12/20 still + with Staph epidermidis /) -completed ; * repeated BCX 01/01 NGT * discussed with ID Dr Howell - Zosyn added for GN coverage 01/01, F/c changed 12/29 * UCX + Proteus, Zosyn changed to Aztreonam per ID x 10 days * stool C dif 01/03 NGT, * CXR 01/06 no acute process * unclear cause of persistent leukocytosis and intermittent fevers- * abx escalated by ID: aztreonam changed to Zosyn adn Zyvox, pt pancultured, F/ c was dc * UCX 01/08 NGTD,. BCX 01/08 NGTD * CT C/ A/P done 01/09, results noted ; no findings to account for persistent leukocytosis and intermittent fevers * skin thickening and infiltration of the subcutaneous fat in the right groin/ upper thigh region, noted on CT, no clinical evidence of cellulitis . No abscess * CRP 01/05 01/10 ( down from last 16.1) * Completed 5 days of Plaquenil * s/p IVF , nephro on board * Monitor electrolytes and renal parameters * Echo 12/26 with pEF 65% and moderate left ventricular hypertrophy, no evidence of vegetation * on a/PLT therapy with ASA, statin , DUKE for afterload reduction * prior : NPO, NGTF's, HOME COMFORT ADVISOR eval , , strict aspiration precautions, unable to participate in swallow eval * Dr Toledo spoke with daughter Dayna Milton 12/27 ([phone]) and discussed further goals of care, she will need to discuss with other family members and will get back to us: either PEG placement or palliative care * awaiting for family decision, daughter decided to continue Full code and wants G tube * GI on board now, * s/p EGD and PEG 01/04, * asp precautions, GTF as per GI recs, tolerates * Full Code per prior documented ECP notes * Cont Depakote 500 mg bid from SNF * DVT ppx: heparin SQ * Anemia w/up c/w ACD and folate deficiency, started on folate replacement * stool OB negative * monitor HH with goal to keep Hgb above 7 * venous Duplex BUE r/o DVT /bilateral edema * wound care for R elbow abrasion * venous Duplex + BUE cephalic best thrombus, given + COVID and hypercoagulability state, started on Lovenox, plan a/c for 3 months, transition to Eliquis upon dc * BM biopsy * heme eval * SPEP, UPEP - pending, retic -2.9 , peripheral smear pending * NM WBC scan pending, leuk resolved this am discussed with ID , given NGT cx and imaging -> possible BM involvement, will get heme eval Notes Reviewed: cardio, renal, ID Discussed with: nurses, case discussed and evaluated by supervising physician Boby Toledo MD 01/12/20 1741: Subjective Allergies: Coded Allergies: MEMANTINE (Unverified Allergy, Unknown, 12/15/19) SERTRALINE (Unverified Allergy, Unknown, 12/15/19) Assessment/Plan Assessment/Plan Patient seen and examined with TYPEWRITER TESTER. Agree with above A&P as it reflects our joint deliberations. Afebrile, leukocytosis resolved. Will F/U UPEP/SPEP, can cancel BMBx and NM WBC scan. Marge Gutierrez NP January 12, 2020 14:36 Boby Toledo MD January 12, 2020 17:41
[2020-01-12 16:00] VITALS: BP 142/66
--- NOTE | 2020-01-12 16:24 | Infectious Diseases Prog Note ---
Assessment/Plan Problems: (1) Leukocytosis Assessment & Plan: with recurrent fever while on aztreonam , withn no evidence of new infection and negative panculture and CT image for any source of infection , suspect bone marrow pathology . repeated Blood culture x 2 is negative , urine culture showed no growth , CXR no acute or new infiltrates or effusion , her Harris catheter was changed on January 08. continue zosyn and zyvox pending indium scan as a final step before bone marrow eval. will stop antibiotics if indium scan shows no focus of infection (2) Catheter-associated urinary tract infection Assessment & Plan: with PROTEUS MIRABILIS , with persistent fever and leukocytosis while on aztreonam , head antibiotic was switched to to zosyn and zyvox to broaden her coverage, repeated urine culture showed no growth and her Harris catheter was changed (3) Sepsis Assessment & Plan: with fever and leukocytosis , source ? repeated blood cultures 2 is NTD , CXR showed no new infiltration or effusion, and urine culture showed no growth, ct abd/pelvis and chest is negative for infectious source .continue zosy and zyvox pending blood cultures and indium scan . (4) COVID-19 virus infection Assessment & Plan: may remove from enhanced droplet isolation, S/P hydroxychloroquin with zinc and vitamin C for five days total.repeated PCR test times two so far is negative. (5) Viral pneumonia Assessment & Plan: due to COVID 19, S/P hydroxychloroquine , with zinc and vitamin C for five days, Repeated PCR test is negative (6) ROSARIO (acute kidney injury) Assessment & Plan: suspect due to dehydration and poor oral intake improving monitor renal function avoid nephrotoxic's (7) NSTEMI (non-ST elevated myocardial infarction) Assessment & Plan: could be due to COVID 19, cardiology is following monitor troponin level (8) Cephalic vein thrombosis Assessment & Plan: in both arms, continue full anticoagulation as per primary , high risk for thrombosis due to recent COVID 19 infection Subjective ROS Limited/Unobtainable: Yes Allergies: Coded Allergies: MEMANTINE (Unverified Allergy, Unknown, 12/15/19) SERTRALINE (Unverified Allergy, Unknown, 12/15/19) Subjective she had no fever today , no chills, still has dry cough but no phlegm or SOB, responsive but confused , no diarrhea so far , urine is clear and Harris catheter was changed Objective Vital Signs Last 24 Hour Vital Signs Date Time Temp Pulse Resp B/P (MAP) Pulse Ox O2 Delivery O2 Flow Rate FiO2 01/12/20 13:35 112/66 01/12/20 13:34 112/66 01/12/20 12:00 98.1 65 20 112/66 (81) 100 01/12/20 09:00 Room Air 01/12/20 08:00 97.4 67 20 125/56 (79) 99 01/12/20 05:49 142/66 01/12/20 04:00 97.9 66 21 142/66 (91) 99 01/12/20 00:00 98.2 72 24 141/56 (84) 99 01/11/20 21:55 155/89 01/11/20 21:00 Room Air 01/11/20 20:00 98.1 77 24 155/89 (111) 100 Height (Feet): 5 Height (Inches): 0.00 Weight (Pounds): 155 General Appearance: WD/WN, no acute distress HEENT: normocephalic, atraumatic, anicteric, mucous membranes moist, PERRL Respiratory/Chest: chest wall non-tender, lungs clear, normal breath sounds, no respiratory distress, no accessory muscle use Cardiovascular: normal peripheral pulses, normal rate, regular rhythm, no gallop/murmur, no JVD Abdomen: normal bowel sounds, soft, non tender, no organomegaly, non distended , no mass, no scars Genitourinary: normal external genitalia Extremities: no cyanosis, no clubbing Skin: no rash, no lesions, no ulcers 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: 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 normal, alert, responsive Lymphatic: no neck adenopathy, no groin adenopathy Musculoskeletal: normal muscle bulk, no effusion Microbiology Date/Time Source Procedure Growth Status 01/10/20 16:30 Nasopharynx Coronavirus COVID-19 PCR ([facility]) - Final Complete Laboratory Tests Test 01/11/20 20:10 01/12/20 12:50 Urine Total Protein Pending Urine Albumin (%) Pending Urine Tszvi-3-Xvkbtxaty (%) Pending Urine Ktkqe-2-Pdfeowcrm (%) Pending Urine Beta-Globulin (%) Pending Urine Gamma Globulin (%) Pending Ur Protein Electrophoresis M-Elia Pending Urine Protein Electrophoresis Intrp Pending White Blood Count 9.2 K/UL (4.8-10.8) Red Blood Count 3.03 M/UL (4.20-5.40) L Hemoglobin 9.6 G/DL (12.0-16.0) L Hematocrit 28.3 % (37.0-47.0) L Mean Corpuscular Volume 94 FL (80-99) Mean Corpuscular Hemoglobin 31.8 PG (27.0-31.0) H Mean Corpuscular Hemoglobin Concent 34.0 G/DL (32.0-36.0) Red Cell Distribution Width 13.1 % (11.6-14.8) Platelet Count 586 K/UL (150-450) H Mean Platelet Volume 5.8 FL (6.5-10.1) L Neutrophils (%) (Auto) 69.7 % (45.0-75.0) Lymphocytes (%) (Auto) 22.8 % (20.0-45.0) Monocytes (%) (Auto) 5.7 % (1.0-10.0) Eosinophils (%) (Auto) 0.9 % (0.0-3.0) Basophils (%) (Auto) 0.8 % (0.0-2.0) Reticulocyte Count 2.9 % (0.5-2.0) H Haptoglobin Pending D-Dimer 4.86 mg/L FEU (0.00-0.49) H Sodium Level 141 MMOL/L (136-145) Potassium Level 3.7 MMOL/L (3.5-5.1) Chloride Level 105 MMOL/L (98-107) Carbon Dioxide Level 31 MMOL/L (21-32) Anion Gap 5 mmol/L (5-15) Blood Urea Nitrogen 7 mg/dL (7-18) Creatinine 0.6 MG/DL (0.55-1.30) Estimat Glomerular Filtration Rate > 60 mL/min (>60) Glucose Level 136 MG/DL (74-106) H Calcium Level 8.4 MG/DL (8.5-10.1) L Phosphorus Level 3.0 MG/DL (2.5-4.9) Magnesium Level 1.9 MG/DL (1.8-2.4) Total Bilirubin 0.1 MG/DL (0.2-1.0) L Aspartate Amino Transf (AST/SGOT) 31 U/L (15-37) Alanine Aminotransferase (ALT/SGPT) 34 U/L (12-78) Alkaline Phosphatase 118 U/L (46-116) H Lactate Dehydrogenase 195 U/L (81-234) C-Reactive Protein, Quantitative 5.7 mg/dL (0.00-0.90) H Total Protein 6.2 G/DL (6.4-8.2) L Total Protein (PEP) Pending Albumin 1.3 G/DL (3.4-5.0) L Albumin (PEP) Pending Globulin 4.9 g/dL Globulin (PEP) Pending Albumin/Globulin Ratio Pending Nhcwz-9-Kpowhqyzd Pending Anaox-5-Iogyzrxta Pending Beta Globulins Pending Beta Gamma Globulin Pending PEP Abnormal Protein Bands Pending Protein Electrophoresis Interpret Pending Current Medications Medications (Trade) Dose Ordered Sig/Ovi Route PRN Reason Start Time Stop Time Status Last Admin Dose Admin Acetaminophen (Tylenol) 650 mg Q4H PRN NG Temp >100.5 01/05/20 12:16 02/04/20 12:15 01/09/20 08:45 Aspirin (ASA) 81 mg DAILY NG 01/06/20 09:00 02/02/20 08:59 01/12/20 08:24 Atorvastatin Calcium (Lipitor) 20 mg BEDTIME NG 01/05/20 21:00 03/18/20 20:59 01/11/20 21:53 Captopril (Capoten) 6.25 mg EVERY 8 HOURS NG 01/05/20 14:00 01/24/20 20:59 01/12/20 13:34 Enoxaparin Sodium (Lovenox) 70 mg EVERY 12 HOURS SUBQ 01/11/20 21:00 04/10/20 20:59 01/12/20 08:26 Folic Acid (Folate) 2 mg DAILY NG 01/06/20 09:00 01/29/20 11:59 01/12/20 08:32 Heparin Sodium (Porcine) (Heparin) 2,000 unit ONCE PRN INJ radiology procedure 01/11/20 15:15 01/13/20 15:14 Lansoprazole (Prevacid) 30 mg BID NG 01/05/20 18:00 01/28/20 17:59 01/12/20 08:25 Linezolid 300 ml @ 300 mls/hr Q12H IVPB 01/09/20 18:00 01/16/20 17:59 01/12/20 05:48 Nitroglycerin (Ntg) 1 patch Q24H TDERMAL 01/05/20 14:00 01/14/20 13:59 01/12/20 13:35 Piperacillin Sod/ Tazobactam Sod 3.375 gm/Sodium Chloride 110 ml @ 27.5 mls/hr EVERY 8 HOURS IVPB 01/09/20 14:00 01/14/20 13:59 01/12/20 13:41 Valproic Acid (Depakene) 500 mg EVERY 12 HOURS NG 01/05/20 21:00 01/17/20 23:14 01/12/20 08:25 Sukhjinder Howell M.D. January 12, 2020 16:24
[2020-01-12 20:00] VITALS: BP 148/93
--- NOTE | 2020-01-12 20:46 | Surgery Progress Note ---
Surgery Progress Note Subjective Additional Comments no acute events Objective Last 24 Hour Vital Signs Date Time Temp Pulse Resp B/P (MAP) Pulse Ox O2 Delivery O2 Flow Rate FiO2 01/12/20 16:00 98.1 66 20 142/66 (91) 98 01/12/20 13:35 112/66 01/12/20 13:34 112/66 01/12/20 12:00 98.1 65 20 112/66 (81) 100 01/12/20 09:00 Room Air 01/12/20 08:00 97.4 67 20 125/56 (79) 99 01/12/20 05:49 142/66 01/12/20 04:00 97.9 66 21 142/66 (91) 99 01/12/20 00:00 98.2 72 24 141/56 (84) 99 01/11/20 21:55 155/89 01/11/20 21:00 Room Air I&O Intake and Output 01/11/20 01/12/20 19:00 07:00 Intake Total 1070.0 ml 1210.0 ml Output Total 1200 ml 950 ml Balance -130.0 ml 260.0 ml Intake Free Water 200 ml 200 ml IV Total 220.0 ml 410.0 ml Tube Feeding 650 ml 600 ml Output Urine Total 1200 ml 950 ml # Bowel Movements 3 1 Cardiovascular: RSR Respiratory: decreased breath sounds Abdomen: soft, non-tender, present bowel sounds Extremities: no cyanosis Laboratory Tests Test 01/12/20 12:50 White Blood Count 9.2 K/UL (4.8-10.8) Red Blood Count 3.03 M/UL (4.20-5.40) L Hemoglobin 9.6 G/DL (12.0-16.0) L Hematocrit 28.3 % (37.0-47.0) L Mean Corpuscular Volume 94 FL (80-99) Mean Corpuscular Hemoglobin 31.8 PG (27.0-31.0) H Mean Corpuscular Hemoglobin Concent 34.0 G/DL (32.0-36.0) Red Cell Distribution Width 13.1 % (11.6-14.8) Platelet Count 586 K/UL (150-450) H Mean Platelet Volume 5.8 FL (6.5-10.1) L Neutrophils (%) (Auto) 69.7 % (45.0-75.0) Lymphocytes (%) (Auto) 22.8 % (20.0-45.0) Monocytes (%) (Auto) 5.7 % (1.0-10.0) Eosinophils (%) (Auto) 0.9 % (0.0-3.0) Basophils (%) (Auto) 0.8 % (0.0-2.0) Reticulocyte Count 2.9 % (0.5-2.0) H Haptoglobin Pending D-Dimer 4.86 mg/L FEU (0.00-0.49) H Sodium Level 141 MMOL/L (136-145) Potassium Level 3.7 MMOL/L (3.5-5.1) Chloride Level 105 MMOL/L (98-107) Carbon Dioxide Level 31 MMOL/L (21-32) Anion Gap 5 mmol/L (5-15) Blood Urea Nitrogen 7 mg/dL (7-18) Creatinine 0.6 MG/DL (0.55-1.30) Estimat Glomerular Filtration Rate > 60 mL/min (>60) Glucose Level 136 MG/DL (74-106) H Calcium Level 8.4 MG/DL (8.5-10.1) L Phosphorus Level 3.0 MG/DL (2.5-4.9) Magnesium Level 1.9 MG/DL (1.8-2.4) Total Bilirubin 0.1 MG/DL (0.2-1.0) L Aspartate Amino Transf (AST/SGOT) 31 U/L (15-37) Alanine Aminotransferase (ALT/SGPT) 34 U/L (12-78) Alkaline Phosphatase 118 U/L (46-116) H Lactate Dehydrogenase 195 U/L (81-234) C-Reactive Protein, Quantitative 5.7 mg/dL (0.00-0.90) H Total Protein 6.2 G/DL (6.4-8.2) L Total Protein (PEP) Pending Albumin 1.3 G/DL (3.4-5.0) L Albumin (PEP) Pending Globulin 4.9 g/dL Globulin (PEP) Pending Albumin/Globulin Ratio Pending Pxtkw-8-Wnqpjwgqr Pending Sxaob-2-Sqonjiadh Pending Beta Globulins Pending Beta Gamma Globulin Pending PEP Abnormal Protein Bands Pending Protein Electrophoresis Interpret Pending Plan Problems: (1) Leukocytosis Assessment & Plan: Acute leukocytosis. Microbiology identified staph E. On antibiotics per infectious disease. WBC trending down. Complete examination identified no external source of potential staph infection in the blood bacteremia DTI noted Continue antibiotics as per infectious disease Trend labs persistent wbc micro reviewed as above worsening ID input appreciated We will follow with recommendations (2) Sepsis Assessment & Plan: negative x 2 CO VID Pneumonia improving Recent acute leukocytosis trending down Course of hydroxy completed stable Improving Continue current care plan Abnormal LFTs identified Hold on abdominal ultrasound for now nutritional optimization turn q2h off load pressures cont tube feeds at goal fever improving wbc improving DAILY ESTIMATED NEEDS: Needs based on ROSARIO, sepsis, Cardiac/ 52kg abw 25-30 kcals/kg 3409-4125 total kcals 1-2 g protein/kg 52-104 g total protein 25-30 mL/kg 2841-5993 total fluid mLs NUTRITION DIAGNOSIS: Swallowing difficulty R/T dysphagia, AMS, lethargy as evidenced by NPO at this time, ADVANCED NURSING PROFESSOR eval pending, FTT dx, s/p PEG placement. CURRENT TF:Jevity 1.2 @ 50ml/hr x 24 hrs ENTERAL NUTRITION RECOMMENDATIONS: Jevity 1.2 @ 50ml/hr x 24 hrs to provide 1200ml, 1440kcal, 66g prot, 968ml free water * Maintain current TF * HOB over 30 degrees * Water flush of 150ml q 8 hrs --- W/ consistently elev BGs, rec Glucerna 1.5 (Glucerna 1.2 is out of stock) @ goal rate of 40ml/hr x 24 hrs to provide 960ml, 1440kcal, 79g prot, 729ml free water. ADDITIONAL RECOMMENDATIONS: * Calibrated bedscale wt for accurate CBW- discrepency wt in EMR noted per SNF record: HT=60", NP=361.4lbs (December 2019) - RECALIBRATE BEDSCALE (BEDSCALE READS "0" ON 01/09) * Monitor lytes, replete as needed * Monitor BGs, need for carb controlled TF (3) Staphylococcus epidermidis bacteremia Assessment & Plan: As above Andi Valera January 12, 2020 20:46
[2020-01-12] MEDS: Atorvastatin 20mg tab NG SCH (21:45)
[2020-01-13] VITALS: BP 142/69
[2020-01-13 04:00] VITALS: BP 146/75
[2020-01-13] MEDS: Captopril 12.5mg tab NG SCH ×3 (05:55→21:53)
[2020-01-13] MEDS: Piperacillin/Tazobactam 3.375 GM in NS 110 ML IVPB SCH ×3 (06:11→21:54)
[2020-01-13 08:00] VITALS: BP 127/69
--- NOTE | 2020-01-13 08:08 | Pulmonology Progress Note ---
Marge Gutierrez ACCOUNT MANAGER EDUCATION 01/13/20 0808: Subjective ROS Limited/Unobtainable: Yes Interval Events: Allergies: Coded Allergies: MEMANTINE (Unverified Allergy, Unknown, 12/15/19) SERTRALINE (Unverified Allergy, Unknown, 12/15/19) Subjective leukocytosis resolved, no fevers since 01/09 [place] labs for this am pending SARS- CoV -2 by PCR 12/21 , 12/24 . 01/09, 01/10 not detected s/p EGF and PEG 01/04 tolerates TF CXR 01/06 no definite acute process Venous Duplex + DVT cephalic vein BUE, started on Lovenox Objective Last 24 Hour Vital Signs Date Time Temp Pulse Resp B/P (MAP) Pulse Ox O2 Delivery O2 Flow Rate FiO2 01/13/20 05:55 146/75 01/13/20 04:00 97.9 67 22 146/75 (98) 97 01/13/20 00:00 98.2 74 22 142/69 (93) 96 01/12/20 21:39 148/93 01/12/20 21:00 Room Air 01/12/20 20:00 98.2 73 20 148/93 (111) 97 01/12/20 16:00 98.1 66 20 142/66 (91) 98 01/12/20 13:35 112/66 01/12/20 13:34 112/66 01/12/20 12:00 98.1 65 20 112/66 (81) 100 01/12/20 09:00 Room Air Intake and Output 01/12/20 01/13/20 19:00 07:00 Intake Total 1262.5 ml 1160.0 ml Output Total 2700 ml 450 ml Balance -1437.5 ml 710.0 ml Intake Free Water 280 ml 200 ml IV Total 382.5 ml 410.0 ml Tube Feeding 600 ml 550 ml Output Urine Total 2700 ml 450 ml # Voids 1 # Bowel Movements 2 Objective General Appearance: WD/WN, in no acute distress elderly AA female HEENT: normocephalic, atraumatic, anicteric, mucous membranes moist, PERRL, NGT Respiratory/Chest: BS overall clear Cardiovascular: normal peripheral pulses, normal rate, Abdomen: normal bowel sounds, soft, non tender, , G tube with TF infusing, site clean, abd binder on Genitourinary: normal external genitalia Extremities: no cyanosis, no clubbing, edema BUE Skin: no rash, R elbow abrasion, no ulcers 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, open eyes spontaneously , but poorly responsive Lymphatic: no neck adenopathy, no groin adenopathy Musculoskeletal: muscle atrophy, no effusion Extremities: no cyanosis Microbiology Date/Time Source Procedure Growth Status 01/11/20 12:20 Nasopharynx Coronavirus COVID-19 PCR ([facility]) - Final Complete 01/10/20 16:30 Nasopharynx Coronavirus COVID-19 PCR ([facility]) - Final Complete Laboratory Tests 01/12/20 12:50: White Blood Count 9.2, Red Blood Count 3.03L, Hemoglobin 9.6L, Hematocrit 28.3L , Mean Corpuscular Volume 94, Mean Corpuscular Hemoglobin 31.8H, Mean Corpuscular Hemoglobin Concent 34.0, Red Cell Distribution Width 13.1, Platelet Count 586H, Mean Platelet Volume 5.8L, Neutrophils (%) (Auto) 69.7, Lymphocytes (%) (Auto) 22.8, Monocytes (%) (Auto) 5.7, Eosinophils (%) (Auto) 0.9, Basophils (%) (Auto) 0.8, Reticulocyte Count 2.9H, Haptoglobin [Pending], D- Dimer 4.86H, Sodium Level 141, Potassium Level 3.7, Chloride Level 105, Carbon Dioxide Level 31, Anion Gap 5, Blood Urea Nitrogen 7, Creatinine 0.6, Estimat Glomerular Filtration Rate > 60, Glucose Level 136H, Calcium Level 8.4L, Phosphorus Level 3.0, Magnesium Level 1.9, Total Bilirubin 0.1L, Aspartate Amino Transf (AST/SGOT) 31, Alanine Aminotransferase (ALT/SGPT) 34, Alkaline Phosphatase 118H, Lactate Dehydrogenase 195, C-Reactive Protein, Quantitative 5.7H, Total Protein 6.2L, Total Protein (PEP) [Pending], Albumin 1.3L, Albumin ( PEP) [Pending], Globulin 4.9, Globulin (PEP) [Pending], Albumin/Globulin Ratio [ Pending], Bikyq-9-Vwqxirbeh [Pending], Qsfhk-9-Amtlpripy [Pending], Beta Globulins [Pending], Beta Gamma Globulin [Pending], PEP Abnormal Protein Bands [ Pending], Protein Electrophoresis Interpret [Pending] Current Medications Medications (Trade) Dose Ordered Sig/Ovi Route PRN Reason Start Time Stop Time Status Last Admin Dose Admin Acetaminophen (Tylenol) 650 mg Q4H PRN NG Temp >100.5 01/05/20 12:16 02/04/20 12:15 01/09/20 08:45 Aspirin (ASA) 81 mg DAILY NG 01/06/20 09:00 02/02/20 08:59 01/12/20 08:24 Atorvastatin Calcium (Lipitor) 20 mg BEDTIME NG 01/05/20 21:00 03/18/20 20:59 01/12/20 21:45 Captopril (Capoten) 6.25 mg EVERY 8 HOURS NG 01/05/20 14:00 01/24/20 20:59 01/13/20 05:55 Enoxaparin Sodium (Lovenox) 70 mg EVERY 12 HOURS SUBQ 01/11/20 21:00 04/10/20 20:59 01/12/20 21:41 Folic Acid (Folate) 2 mg DAILY NG 01/06/20 09:00 01/29/20 11:59 01/12/20 08:32 Heparin Sodium (Porcine) (Heparin) 2,000 unit ONCE PRN INJ radiology procedure 01/11/20 15:15 01/13/20 15:14 Lansoprazole (Prevacid) 30 mg BID NG 01/05/20 18:00 01/28/20 17:59 01/12/20 17:41 Linezolid 300 ml @ 300 mls/hr Q12H IVPB 01/09/20 18:00 01/16/20 17:59 01/13/20 05:25 Nitroglycerin (Ntg) 1 patch Q24H TDERMAL 01/05/20 14:00 01/14/20 13:59 01/12/20 13:35 Piperacillin Sod/ Tazobactam Sod 3.375 gm/Sodium Chloride 110 ml @ 27.5 mls/hr EVERY 8 HOURS IVPB 01/09/20 14:00 01/14/20 13:59 01/13/20 06:11 Valproic Acid (Depakene) 500 mg EVERY 12 HOURS NG 01/05/20 21:00 01/17/20 23:14 01/12/20 21:43 Assessment/Plan Assessment/Plan PROBLEMS Confirmed COVID-19 virus infection Viral pneumonia Electrolyte imbalance NSTEMI (non-ST elevated myocardial infarction) Encephalopathy Dehydration ROSARIO (acute kidney injury) Staphylococcus epidermidis bacteremia Anemia Persistent leukocytosis with intermittent fevers ASSESSMENT Probably sepsis ( POA, with leukocytosis, lactic acidosis, evidence of infection ) Confirmed CoVID 19 infection Acute hypoxemic respiratory failure-resolved S epidermis bacteremia New leukocytosis with fevers, Proteus UTI Acute renal failure - RESOLVED Severe dehydration - IMPROVED Hypernatremia indicative of free water depletion Hypercalcemia likely due to dehydration Elevated hemoglobin likely secondary to hemoconcentration, now anemia Elevated troponin/NSTEMI Poor p.o. intake / failure to thrive Dementia Hypertension Generalized anxiety disorder Dysphagia , s/p EGD and PEG 01/04 Anemia of chronic disease Folate deficiency DVT BUE cephalic vein PLAN OF CARE * COVID-19 isolation status, confirmed 12/14, * repeat COVID 12/21- and 12/24 NGT -> off isolation now * COVID 19 NGT 01/09 and 01/10 * on [facility] floor * monitor oxygenation closely, on RA or only on 1-2L nasal cannula * CXR prn only if worsening symptoms, CXR 12/16 clear lungs * fup CXR 12/25 done , given mild leukocytosis -no acute findings * worsening leukocytosis, fevers, recultured 12/31, fup with cx: UA + pyuria, UCX -GNB ; BCX 01/01 -NGTD * CXR 01/01 No focal consolidative process or pleural effusions, not likely PNA, leuk probably due to UTI * repeat CXR ( fevers, cough) * also check stool C dif * Vanco per ID, needs 2 wks for Staph epidermidis ( repeated BCX 12/20 still + with Staph epidermidis 09/02) -completed ; * repeated BCX 01/01 NGT * discussed with ID Dr Howell - Paulinesytom added for GN coverage 01/01, F/c changed 12/29 * UCX + Proteus, Zosyn changed to Aztreonam per ID x 10 days * stool C dif 01/03 NGT, * CXR 01/06 no acute process * unclear cause of persistent leukocytosis and intermittent fevers- * abx escalated by ID: aztreonam changed to Zosyn adn Zyvox, pt pancultured, F/ c was dc * UCX 01/08 NGTD, BCX 01/08 NGTD * CT C/ A/P done 01/09, results noted ; no findings to account for persistent leukocytosis and intermittent fevers * skin thickening and infiltration of the subcutaneous fat in the right groin/ upper thigh region, noted on CT, no clinical evidence of cellulitis . No abscess * CRP 01/05 01/10 ( down from last 16.1) * Completed 5 days of Plaquenil * s/p IVF , nephro on board * Monitor electrolytes and renal parameters * Echo 12/26 with pEF 65% and moderate left ventricular hypertrophy, no evidence of vegetation * on a/PLT therapy with ASA, statin , [facility]KE for afterload reduction * prior : NPO, NGTF's, REGULATORY ASSOCIATE eval , , strict aspiration precautions, unable to participate in swallow eval * Dr Toledo spoke with daughter Dayna Milton 12/27 ([phone]) and discussed further goals of care, she will need to discuss with other family members and will get back to us: either PEG placement or palliative care * awaiting for family decision, daughter decided to continue Full code and wants G tube * GI on board now, * s/p EGD and PEG 01/04, * asp precautions, GTF as per GI recs, tolerates * Full Code per prior documented ECP notes * Cont Depakote 500 mg bid from SNF * Anemia w/up c/w ACD and folate deficiency, started on folate replacement * stool OB negative * monitor HH with goal to keep Hgb above 7 * venous Duplex BUE r/o DVT /bilateral edema * wound care for R elbow abrasion * venous Duplex + BUE cephalic best thrombus, given + COVID and hypercoagulability state, started on Lovenox, plan a/c for 3 months, transition to Eliquis upon dc * will cancel NM WBC scan and BM biopsy , given resolved leukocytosis and fevers * heme eval if able to get * fup with SPEP, UPEP - pending, retic -2.9 , peripheral smear pending discussed with ID Notes Reviewed: cardio, renal, ID Discussed with: nurses, case discussed and evaluated by supervising physician Boby Toledo MD 01/13/20 1127: Subjective Allergies: Coded Allergies: MEMANTINE (Unverified Allergy, Unknown, 12/15/19) SERTRALINE (Unverified Allergy, Unknown, 12/15/19) Assessment/Plan Assessment/Plan Patient seen and examined with ACCOUNT MANAGER EDUCATION. Agree with above A&P as it reflects our joint deliberations. Marge Gutierrez NP January 13, 2020 08:08 Boby Toledo MD January 13, 2020 11:27
[2020-01-13] MEDS: Enoxaparin 80mg Inj SUBQ SCH ×2 (09:00→21:56)
--- NOTE | 2020-01-13 10:13 | General Progress Note ---
Assessment/Plan Status: unchanged Assessment/Plan: 1. The patient is an 89-year-old female with current medical problem as COVID positive pneumonia resolving. 2. Diabetes. 3. Anemia. 4. Abnormal liver function tests. 5. Sepsis. 6. Dysphagia. 7. Non-ST elevation myocardial infarction. 8. Dementia. 9. Encephalopathy. 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 s/p GT placement GTF GT care monitor for residuals Subjective ROS Limited/Unobtainable: No Allergies: Coded Allergies: MEMANTINE (Unverified Allergy, Unknown, 12/15/19) SERTRALINE (Unverified Allergy, Unknown, 12/15/19) Objective Last 24 Hour Vital Signs Date Time Temp Pulse Resp B/P (MAP) Pulse Ox O2 Delivery O2 Flow Rate FiO2 01/13/20 08:40 Room Air 01/13/20 08:00 97.9 66 20 127/69 (88) 99 01/13/20 05:55 146/75 01/13/20 04:00 97.9 67 22 146/75 (98) 97 01/13/20 00:00 98.2 74 22 142/69 (93) 96 01/12/20 21:39 148/93 01/12/20 21:00 Room Air 01/12/20 20:00 98.2 73 20 148/93 (111) 97 01/12/20 16:00 98.1 66 20 142/66 (91) 98 01/12/20 13:35 112/66 01/12/20 13:34 112/66 01/12/20 12:00 98.1 65 20 112/66 (81) 100 Intake and Output 01/12/20 01/13/20 19:00 07:00 Intake Total 1262.5 ml 1160.0 ml Output Total 2700 ml 450 ml Balance -1437.5 ml 710.0 ml Intake Free Water 280 ml 200 ml IV Total 382.5 ml 410.0 ml Tube Feeding 600 ml 550 ml Output Urine Total 2700 ml 450 ml # Voids 1 # Bowel Movements 2 Laboratory Tests 01/12/20 12:50: White Blood Count 9.2, Red Blood Count 3.03L, Hemoglobin 9.6L, Hematocrit 28.3L , Mean Corpuscular Volume 94, Mean Corpuscular Hemoglobin 31.8H, Mean Corpuscular Hemoglobin Concent 34.0, Red Cell Distribution Width 13.1, Platelet Count 586H, Mean Platelet Volume 5.8L, Neutrophils (%) (Auto) 69.7, Lymphocytes (%) (Auto) 22.8, Monocytes (%) (Auto) 5.7, Eosinophils (%) (Auto) 0.9, Basophils (%) (Auto) 0.8, Reticulocyte Count 2.9H, Haptoglobin [Pending], D- Dimer 4.86H, Sodium Level 141, Potassium Level 3.7, Chloride Level 105, Carbon Dioxide Level 31, Anion Gap 5, Blood Urea Nitrogen 7, Creatinine 0.6, Estimat Glomerular Filtration Rate > 60, Glucose Level 136H, Calcium Level 8.4L, Phosphorus Level 3.0, Magnesium Level 1.9, Total Bilirubin 0.1L, Aspartate Amino Transf (AST/SGOT) 31, Alanine Aminotransferase (ALT/SGPT) 34, Alkaline Phosphatase 118H, Lactate Dehydrogenase 195, C-Reactive Protein, Quantitative 5.7H, Total Protein 6.2L, Total Protein (PEP) [Pending], Albumin 1.3L, Albumin ( PEP) [Pending], Globulin 4.9, Globulin (PEP) [Pending], Albumin/Globulin Ratio [ Pending], Pswkt-6-Bavgdgqnj [Pending], Ktkcn-4-Xulnitvss [Pending], Beta Globulins [Pending], Beta Gamma Globulin [Pending], PEP Abnormal Protein Bands [ Pending], Protein Electrophoresis Interpret [Pending] Height (Feet): 5 Height (Inches): 0.00 Weight (Pounds): 155 General Appearance: no apparent distress EENT: normal ENT inspection Neck: supple Cardiovascular: normal rate Respiratory/Chest: decreased breath sounds Abdomen: normal bowel sounds, non tender, soft Extremities: non-tender Sven Villalta MD January 13, 2020 10:13
[2020-01-13 10:49] LABS: BASOPHILS % (AUTO) 0.7 % (0.0-2.0); EOSINOPHILS % (AUTO) 1.1 % (0.0-3.0); HEMATOCRIT 28.8 % (37.0-47.0); HEMOGLOBIN 9.7 G/DL (12.0-16.0); LYMPHOCYTES % (AUTO) 23.4 % (20.0-45.0); MEAN CORPUSCULAR VOLUME 93 FL (80-99); MONOCYTES % (AUTO) 6.5 % (1.0-10.0); NEUTROPHILS % (AUTO) 68.3 % (45.0-75.0); PLATELET COUNT 556 K/UL (150-450); RED CELL DISTRIBUTION WIDTH 13.5 % (11.6-14.8); WHITE BLOOD COUNT 8.5 K/UL (4.8-10.8)
[2020-01-13 11:57] VITALS: BP 144/65
--- NOTE | 2020-01-13 13:19 | Nephrology Progress Note ---
Assessment/Plan Problem List: (1) ROSARIO (acute kidney injury) (2) Dehydration (3) Electrolyte imbalance (4) NSTEMI (non-ST elevated myocardial infarction) (5) COVID-19 virus infection (6) Anemia Assessment Acute renal failure Severe dehydration Hypernatremia indicative of free water depletion Hypercalcemia likely due to dehydration Elevated hemoglobin likely secondary to hemoconcentration Elevated troponin Poor p.o. intake / failure to thrive Dementia Hypertension Exposure to COVID-19 Plan Covid19 test positive Received PEG today January 04 WBCs carlene over 15,000, but now is WNL Stable from renal standpoint to view Continue per ID advice Previously: Discontinue potassium chloride p.o. IV Protonix to Prevacid via NG tube At the folic acid to medication Watch declining hemoglobin Aspirin 2D echocardiogram, results still pending Nitropaste Avoid nephrotoxic's Monitor renal parameters Monitor hemoglobin hematocrit Avoid mind altering medication in view of severe lethargy Per orders Subjective ROS Limited/Unobtainable: No Constitutional: Reports: malaise Objective Objective Last 24 Hour Vital Signs Date Time Temp Pulse Resp B/P (MAP) Pulse Ox O2 Delivery O2 Flow Rate FiO2 01/13/20 11:57 97.0 68 20 144/65 (91) 98 01/13/20 08:40 Room Air 01/13/20 08:00 97.9 66 20 127/69 (88) 99 01/13/20 05:55 146/75 01/13/20 04:00 97.9 67 22 146/75 (98) 97 01/13/20 00:00 98.2 74 22 142/69 (93) 96 01/12/20 21:39 148/93 01/12/20 21:00 Room Air 01/12/20 20:00 98.2 73 20 148/93 (111) 97 01/12/20 16:00 98.1 66 20 142/66 (91) 98 01/12/20 13:35 112/66 01/12/20 13:34 112/66 Intake and Output 01/12/20 01/13/20 19:00 07:00 Intake Total 1262.5 ml 1160.0 ml Output Total 2700 ml 450 ml Balance -1437.5 ml 710.0 ml Intake Free Water 280 ml 200 ml IV Total 382.5 ml 410.0 ml Tube Feeding 600 ml 550 ml Output Urine Total 2700 ml 450 ml # Voids 1 # Bowel Movements 2 Laboratory Tests 01/13/20 10:23: White Blood Count 8.5, Red Blood Count 3.10L, Hemoglobin 9.7L, Hematocrit 28.8L , Mean Corpuscular Volume 93, Mean Corpuscular Hemoglobin 31.4H, Mean Corpuscular Hemoglobin Concent 33.8, Red Cell Distribution Width 13.5, Platelet Count 556H, Mean Platelet Volume 5.6L, Neutrophils (%) (Auto) 68.3, Lymphocytes (%) (Auto) 23.4, Monocytes (%) (Auto) 6.5, Eosinophils (%) (Auto) 1.1, Basophils (%) (Auto) 0.7 Height (Feet): 5 Height (Inches): 0.00 Weight (Pounds): 155 General Appearance: no apparent distress Cardiovascular: normal rate Respiratory/Chest: decreased breath sounds Abdomen: soft Objective No change Robert Foreman MD January 13, 2020 13:19
[2020-01-13] MEDS: Valproic Acid 250mg/5ml Liquid NG SCH ×2 (14:03→21:53)
[2020-01-13] MEDS: Nitroglycerin Patch 0.4mg TDERMAL SCH (14:04)
[2020-01-13] MEDS: Aspirin Baby 81mg NG SCH (14:04)
--- NOTE | 2020-01-13 15:47 | Infectious Diseases Prog Note ---
Assessment/Plan Problems: (1) Leukocytosis Assessment & Plan: with recurrent fever while on aztreonam , withn no evidence of new infection and negative panculture and CT image for any source of infection , suspect bone marrow pathology VS Thrombophlebitis . repeated Blood culture x 2 is negative , urine culture showed no growth , CXR no acute or new infiltrates or effusion , her Harris catheter was changed on January 08. continue zosyn and zyvox pending indium scan as a final step before bone marrow eval. will stop antibiotics if indium scan shows no focus of infection (2) Catheter-associated urinary tract infection Assessment & Plan: with PROTEUS MIRABILIS , with persistent fever and leukocytosis while on aztreonam , head antibiotic was switched to to zosyn and zyvox to broaden her coverage, repeated urine culture showed no growth and her Harris catheter was changed (3) Sepsis Assessment & Plan: with fever and leukocytosis , source ? repeated blood cultures 2 is NTD , CXR showed no new infiltration or effusion, and urine culture showed no growth, ct abd/pelvis and chest is negative for infectious source .continue zosy and zyvox pending blood cultures and indium scan . (4) COVID-19 virus infection Assessment & Plan: may remove from enhanced droplet isolation, S/P hydroxychloroquin with zinc and vitamin C for five days total.repeated PCR test times two so far is negative. 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 in both arms, continue full anticoagulation as per primary , high risk for thrombosis due to recent COVID 19 infection Subjective ROS Limited/Unobtainable: Yes Allergies: Coded Allergies: MEMANTINE (Unverified Allergy, Unknown, 12/15/19) SERTRALINE (Unverified Allergy, Unknown, 12/15/19) Subjective she had no fever today, but dry cough and no phlegm or SOB, responsive but confused , no diarrhea so far , urine is clear and Harris catheter was changed Objective Vital Signs Last 24 Hour Vital Signs Date Time Temp Pulse Resp B/P (MAP) Pulse Ox O2 Delivery O2 Flow Rate FiO2 01/13/20 14:04 144/65 01/13/20 14:03 144/65 01/13/20 11:57 97.0 68 20 144/65 (91) 98 01/13/20 08:40 Room Air 01/13/20 08:00 97.9 66 20 127/69 (88) 99 01/13/20 05:55 146/75 01/13/20 04:00 97.9 67 22 146/75 (98) 97 01/13/20 00:00 98.2 74 22 142/69 (93) 96 01/12/20 21:39 148/93 01/12/20 21:00 Room Air 01/12/20 20:00 98.2 73 20 148/93 (111) 97 01/12/20 16:00 98.1 66 20 142/66 (91) 98 Height (Feet): 5 Height (Inches): 0.00 Weight (Pounds): 155 General Appearance: WD/WN, no acute distress HEENT: normocephalic, atraumatic, anicteric, mucous membranes moist Respiratory/Chest: chest wall non-tender, lungs clear, normal breath sounds, no respiratory distress, no accessory muscle use Cardiovascular: normal peripheral pulses, normal rate, regular rhythm, no gallop/murmur, no JVD Abdomen: normal bowel sounds, soft, non tender, no organomegaly, non distended , no mass, no scars Genitourinary: normal external genitalia Extremities: no cyanosis, no clubbing Skin: no rash, no lesions 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: alert, responsive Lymphatic: no neck adenopathy, no groin adenopathy Musculoskeletal: normal muscle bulk, no effusion Microbiology Date/Time Source Procedure Growth Status 01/11/20 12:20 Nasopharynx Coronavirus COVID-19 PCR ([facility]) - Final Complete 01/10/20 16:30 Nasopharynx Coronavirus COVID-19 PCR ([facility]) - Final Complete Laboratory Tests Test 01/13/20 10:23 White Blood Count 8.5 K/UL (4.8-10.8) Red Blood Count 3.10 M/UL (4.20-5.40) L Hemoglobin 9.7 G/DL (12.0-16.0) L Hematocrit 28.8 % (37.0-47.0) L Mean Corpuscular Volume 93 FL (80-99) Mean Corpuscular Hemoglobin 31.4 PG (27.0-31.0) H Mean Corpuscular Hemoglobin Concent 33.8 G/DL (32.0-36.0) Red Cell Distribution Width 13.5 % (11.6-14.8) Platelet Count 556 K/UL (150-450) H Mean Platelet Volume 5.6 FL (6.5-10.1) L Neutrophils (%) (Auto) 68.3 % (45.0-75.0) Lymphocytes (%) (Auto) 23.4 % (20.0-45.0) Monocytes (%) (Auto) 6.5 % (1.0-10.0) Eosinophils (%) (Auto) 1.1 % (0.0-3.0) Basophils (%) (Auto) 0.7 % (0.0-2.0) Current Medications Medications (Trade) Dose Ordered Sig/Ovi Route PRN Reason Start Time Stop Time Status Last Admin Dose Admin Acetaminophen (Tylenol) 650 mg Q4H PRN NG Temp >100.5 01/05/20 12:16 02/04/20 12:15 01/09/20 08:45 Aspirin (ASA) 81 mg DAILY NG 01/06/20 09:00 02/02/20 08:59 01/13/20 14:04 Atorvastatin Calcium (Lipitor) 20 mg BEDTIME NG 01/05/20 21:00 03/18/20 20:59 01/12/20 21:45 Captopril (Capoten) 6.25 mg EVERY 8 HOURS NG 01/05/20 14:00 01/24/20 20:59 01/13/20 14:03 Enoxaparin Sodium (Lovenox) 70 mg EVERY 12 HOURS SUBQ 01/11/20 21:00 04/10/20 20:59 01/12/20 21:41 Folic Acid (Folate) 2 mg DAILY NG 01/06/20 09:00 01/29/20 11:59 01/13/20 14:03 Lansoprazole (Prevacid) 30 mg BID NG 01/05/20 18:00 01/28/20 17:59 01/12/20 17:41 Linezolid 300 ml @ 300 mls/hr Q12H IVPB 01/09/20 18:00 01/16/20 17:59 01/13/20 05:25 Nitroglycerin (Ntg) 1 patch Q24H TDERMAL 01/05/20 14:00 01/14/20 13:59 01/13/20 14:04 Piperacillin Sod/ Tazobactam Sod 3.375 gm/Sodium Chloride 110 ml @ 27.5 mls/hr EVERY 8 HOURS IVPB 01/09/20 14:00 01/18/20 13:59 01/13/20 14:02 Valproic Acid (Depakene) 500 mg EVERY 12 HOURS NG 01/05/20 21:00 01/17/20 23:14 01/13/20 14:03 Sukhjinder Howell M.D. January 13, 2020 15:47
[2020-01-13 16:00] VITALS: BP 134/72
--- NOTE | 2020-01-13 19:34 | Surgery Progress Note ---
Surgery Progress Note Subjective Additional Comments no acute events Objective Last 24 Hour Vital Signs Date Time Temp Pulse Resp B/P (MAP) Pulse Ox O2 Delivery O2 Flow Rate FiO2 01/13/20 16:00 97.5 70 20 134/72 (92) 98 01/13/20 14:04 144/65 01/13/20 14:03 144/65 01/13/20 11:57 97.0 68 20 144/65 (91) 98 01/13/20 08:40 Room Air 01/13/20 08:00 97.9 66 20 127/69 (88) 99 01/13/20 05:55 146/75 01/13/20 04:00 97.9 67 22 146/75 (98) 97 01/13/20 00:00 98.2 74 22 142/69 (93) 96 01/12/20 21:39 148/93 01/12/20 21:00 Room Air 01/12/20 20:00 98.2 73 20 148/93 (111) 97 I&O Intake and Output 01/12/20 01/13/20 19:00 07:00 Intake Total 1262.5 ml 1160.0 ml Output Total 2700 ml 450 ml Balance -1437.5 ml 710.0 ml Intake Free Water 280 ml 200 ml IV Total 382.5 ml 410.0 ml Tube Feeding 600 ml 550 ml Output Urine Total 2700 ml 450 ml # Voids 1 # Bowel Movements 2 Dressing: other Wound: other Drains: other Cardiovascular: RSR Respiratory: decreased breath sounds Abdomen: soft, non-tender, present bowel sounds Extremities: no cyanosis Laboratory Tests Test 01/13/20 10:23 White Blood Count 8.5 K/UL (4.8-10.8) Red Blood Count 3.10 M/UL (4.20-5.40) L Hemoglobin 9.7 G/DL (12.0-16.0) L Hematocrit 28.8 % (37.0-47.0) L Mean Corpuscular Volume 93 FL (80-99) Mean Corpuscular Hemoglobin 31.4 PG (27.0-31.0) H Mean Corpuscular Hemoglobin Concent 33.8 G/DL (32.0-36.0) Red Cell Distribution Width 13.5 % (11.6-14.8) Platelet Count 556 K/UL (150-450) H Mean Platelet Volume 5.6 FL (6.5-10.1) L Neutrophils (%) (Auto) 68.3 % (45.0-75.0) Lymphocytes (%) (Auto) 23.4 % (20.0-45.0) Monocytes (%) (Auto) 6.5 % (1.0-10.0) Eosinophils (%) (Auto) 1.1 % (0.0-3.0) Basophils (%) (Auto) 0.7 % (0.0-2.0) Plan Problems: (1) Leukocytosis Assessment & Plan: Acute leukocytosis. Microbiology identified staph E. On antibiotics per infectious disease. WBC trending down. Complete examination identified no external source of potential staph infection in the blood bacteremia DTI noted Continue antibiotics as per infectious disease Trend labs persistent wbc micro reviewed as above worsening ID input appreciated We will follow with recommendations (2) Sepsis Assessment & Plan: negative x 2 CO VID Pneumonia improving Recent acute leukocytosis trending down Course of hydroxy completed stable Improving Continue current care plan Abnormal LFTs identified Hold on abdominal ultrasound for now nutritional optimization turn q2h off load pressures cont tube feeds at goal fever improving wbc improving DAILY ESTIMATED NEEDS: Needs based on ROSARIO, sepsis, Cardiac/ 52kg abw 25-30 kcals/kg [id number] total kcals 1-2 g protein/kg 52-104 g total protein 25-30 mL/kg [id number] total fluid mLs NUTRITION DIAGNOSIS: Swallowing difficulty R/T dysphagia, AMS, lethargy as evidenced by NPO at this time, TREATING ENGINEER eval pending, FTT dx, s/p PEG placement. CURRENT TF:Jevity 1.2 @ 50ml/hr x 24 hrs ENTERAL NUTRITION RECOMMENDATIONS: Jevity 1.2 @ 50ml/hr x 24 hrs to provide 1200ml, 1440kcal, 66g prot, 968ml free water * Maintain current TF * HOB over 30 degrees * Water flush of 150ml q 8 hrs --- W/ consistently elev BGs, rec Glucerna 1.5 (Glucerna 1.2 is out of stock) @ goal rate of 40ml/hr x 24 hrs to provide 960ml, 1440kcal, 79g prot, 729ml free water. ADDITIONAL RECOMMENDATIONS: * Calibrated bedscale wt for accurate CBW- discrepency wt in EMR noted per SNF record: HT=60", ZF=552.4lbs (December 2019) - RECALIBRATE BEDSCALE (BEDSCALE READS "0" ON 01/09) * Monitor lytes, replete as needed * Monitor BGs, need for carb controlled TF (3) Staphylococcus epidermidis bacteremia Assessment & Plan: As above Andi Valera January 13, 2020 19:34
[2020-01-13 20:00] VITALS: BP 160/71
[2020-01-13] MEDS: Atorvastatin 20mg tab NG SCH (21:54)
[2020-01-14] VITALS: BP 113/65
[2020-01-14 04:00] VITALS: BP 131/79
[2020-01-14] MEDS: Captopril 12.5mg tab NG SCH ×3 (06:34→21:19)
[2020-01-14] MEDS: Piperacillin/Tazobactam 3.375 GM in NS 110 ML IVPB SCH ×3 (06:34→22:40)
[2020-01-14 06:48] LABS: ANION GAP 7 mmol/L (5-15); BLOOD UREA NITROGEN 9 mg/dL (7-18); CALCIUM 8.5 MG/DL (8.5-10.1); CARBON DIOXIDE 29 MMOL/L (21-32); CHLORIDE 104 MMOL/L (98-107); CREATININE 0.6 MG/DL (0.55-1.30); POTASSIUM 3.8 MMOL/L (3.5-5.1); SODIUM 140 MMOL/L (136-145)
[2020-01-14 07:29] LABS: BASOPHILS % (AUTO) 1.1 % (0.0-2.0); EOSINOPHILS % (AUTO) 1.1 % (0.0-3.0); HEMATOCRIT 26.5 % (37.0-47.0); HEMOGLOBIN 9.2 G/DL (12.0-16.0); LYMPHOCYTES % (AUTO) 35.1 % (20.0-45.0); MEAN CORPUSCULAR VOLUME 94 FL (80-99); MONOCYTES % (AUTO) 7.4 % (1.0-10.0); NEUTROPHILS % (AUTO) 55.2 % (45.0-75.0); PLATELET COUNT 492 K/UL (150-450); RED BLOOD COUNT 2.83 M/UL (4.20-5.40); RED CELL DISTRIBUTION WIDTH 14.1 % (11.6-14.8); WHITE BLOOD COUNT 6.9 K/UL (4.8-10.8)
[2020-01-14 08:00] VITALS: BP 115/73
--- NOTE | 2020-01-14 08:50 | Pulmonology Progress Note ---
Marge Gutierrez WARDROBE COORDINATOR 01/14/20 0850: Subjective ROS Limited/Unobtainable: Yes Interval Events: Allergies: Coded Allergies: MEMANTINE (Unverified Allergy, Unknown, 12/15/19) SERTRALINE (Unverified Allergy, Unknown, 12/15/19) Subjective leukocytosis resolved, no fevers since 01/09 [place] SARS- CoV -2 by PCR 12/21 , 12/24 . 01/09, 01/10 not detected s/p EGF and PEG 01/04 tolerates TF CXR 01/06 no definite acute process Venous Duplex + DVT cephalic vein BUE, started on Lovenox more awake, but poorly responsive Objective Last 24 Hour Vital Signs Date Time Temp Pulse Resp B/P (MAP) Pulse Ox O2 Delivery O2 Flow Rate FiO2 01/14/20 06:34 131/79 01/14/20 04:00 98.1 70 20 131/79 (96) 96 01/14/20 00:00 98.1 69 18 113/65 (81) 97 01/13/20 21:53 160/71 01/13/20 21:00 Room Air 01/13/20 20:00 98.1 71 18 160/71 (100) 95 01/13/20 16:00 97.5 70 20 134/72 (92) 98 01/13/20 14:04 144/65 01/13/20 14:03 144/65 01/13/20 11:57 97.0 68 20 144/65 (91) 98 Intake and Output 01/13/20 01/14/20 19:00 07:00 Intake Total 1020.0 ml 760.0 ml Output Total 1400 ml Balance -380.0 ml 760.0 ml Intake Free Water 200 ml 200 ml IV Total 520.0 ml 110.0 ml Tube Feeding 300 ml 450 ml Output Urine Total 1400 ml # Bowel Movements 1 Objective General Appearance: WD/WN, in no acute distress elderly AA female HEENT: normocephalic, atraumatic, anicteric, mucous membranes moist, PERRL, Respiratory/Chest: BS overall clear Cardiovascular: normal peripheral pulses, normal rate, Abdomen: normal bowel sounds, soft, non tender, , G tube with TF infusing, site clean, abd binder on Genitourinary: normal external genitalia Extremities: no cyanosis, no clubbing, edema BUE Skin: no rash, R elbow abrasion, no ulcers 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: supervisor plate forming II-XII grossly normal, open eyes spontaneously , but poorly responsive Lymphatic: no neck adenopathy, no groin adenopathy Musculoskeletal: muscle atrophy, no effusion Musculoskeletal: no effusion Microbiology Date/Time Source Procedure Growth Status 01/11/20 12:20 Nasopharynx Coronavirus COVID-19 PCR ([facility]) - Final Complete Laboratory Tests 01/13/20 10:23: White Blood Count 8.5, Red Blood Count 3.10L, Hemoglobin 9.7L, Hematocrit 28.8L , Mean Corpuscular Volume 93, Mean Corpuscular Hemoglobin 31.4H, Mean Corpuscular Hemoglobin Concent 33.8, Red Cell Distribution Width 13.5, Platelet Count 556H, Mean Platelet Volume 5.6L, Neutrophils (%) (Auto) 68.3, Lymphocytes (%) (Auto) 23.4, Monocytes (%) (Auto) 6.5, Eosinophils (%) (Auto) 1.1, Basophils (%) (Auto) 0.7 01/14/20 05:55: White Blood Count 6.9, Red Blood Count 2.83L, Hemoglobin 9.2L, Hematocrit 26.5L , Mean Corpuscular Volume 94, Mean Corpuscular Hemoglobin 32.4H, Mean Corpuscular Hemoglobin Concent 34.6, Red Cell Distribution Width 14.1, Platelet Count 492H, Mean Platelet Volume 5.7L, Neutrophils (%) (Auto) 55.2, Lymphocytes (%) (Auto) 35.1, Monocytes (%) (Auto) 7.4, Eosinophils (%) (Auto) 1.1, Basophils (%) (Auto) 1.1, Sodium Level 140, Potassium Level 3.8, Chloride Level 104, Carbon Dioxide Level 29, Anion Gap 7, Blood Urea Nitrogen 9, Creatinine 0.6 , Estimat Glomerular Filtration Rate > 60, Glucose Level 163H, Calcium Level 8.5 Current Medications Medications (Trade) Dose Ordered Sig/Ovi Route PRN Reason Start Time Stop Time Status Last Admin Dose Admin Acetaminophen (Tylenol) 650 mg Q4H PRN NG Temp >100.5 01/05/20 12:16 02/04/20 12:15 01/09/20 08:45 Aspirin (ASA) 81 mg DAILY NG 01/06/20 09:00 02/02/20 08:59 01/13/20 14:04 Atorvastatin Calcium (Lipitor) 20 mg BEDTIME NG 01/05/20 21:00 03/18/20 20:59 01/13/20 21:54 Captopril (Capoten) 6.25 mg EVERY 8 HOURS NG 01/05/20 14:00 01/24/20 20:59 01/14/20 06:34 Enoxaparin Sodium (Lovenox) 70 mg EVERY 12 HOURS SUBQ 01/11/20 21:00 04/10/20 20:59 01/13/20 21:56 Folic Acid (Folate) 2 mg DAILY NG 01/06/20 09:00 01/29/20 11:59 01/13/20 14:03 Lansoprazole (Prevacid) 30 mg BID NG 01/05/20 18:00 01/28/20 17:59 01/13/20 17:25 Linezolid 300 ml @ 300 mls/hr Q12H IVPB 01/09/20 18:00 01/16/20 17:59 01/14/20 05:00 Nitroglycerin (Ntg) 1 patch Q24H TDERMAL 01/05/20 14:00 01/14/20 13:59 01/13/20 14:04 Piperacillin Sod/ Tazobactam Sod 3.375 gm/Sodium Chloride 110 ml @ 27.5 mls/hr EVERY 8 HOURS IVPB 01/09/20 14:00 01/18/20 13:59 01/14/20 06:34 Valproic Acid (Depakene) 500 mg EVERY 12 HOURS NG 01/05/20 21:00 01/17/20 23:14 01/13/20 21:53 Assessment/Plan Assessment/Plan PROBLEMS Confirmed COVID-19 virus infection Viral pneumonia Electrolyte imbalance NSTEMI (non-ST elevated myocardial infarction) Encephalopathy Dehydration ROSARIO (acute kidney injury) Staphylococcus epidermidis bacteremia Anemia Persistent leukocytosis with intermittent fevers ASSESSMENT Probably sepsis ( POA, with leukocytosis, lactic acidosis, evidence of infection ) Confirmed CoVID 19 infection Acute hypoxemic respiratory failure-resolved S epidermis bacteremia New leukocytosis with fevers, Proteus UTI Acute renal failure - RESOLVED Severe dehydration - IMPROVED Hypernatremia indicative of free water depletion Hypercalcemia likely due to dehydration Elevated hemoglobin likely secondary to hemoconcentration, now anemia Elevated troponin/NSTEMI Poor p.o. intake / failure to thrive Dementia Hypertension Generalized anxiety disorder Dysphagia , s/p EGD and PEG 01/04 Anemia of chronic disease Folate deficiency DVT BUE cephalic vein PLAN OF CARE * COVID-19 isolation status, confirmed 12/14, * repeat COVID 12/21- and 12/24 NGT -> off isolation now * COVID 19 NGT 01/09 and 01/10 * on [facility] floor * monitor oxygenation closely, on RA or only on 1-2L nasal cannula * CXR prn only if worsening symptoms, CXR 12/16 clear lungs * fup CXR 12/25 done , given mild leukocytosis -no acute findings * worsening leukocytosis, fevers, recultured 12/31, fup with cx: UA + pyuria, UCX -GNB ; BCX 01/01 -NGTD * CXR 01/01 No focal consolidative process or pleural effusions, not likely PNA, leuk probably due to UTI * repeat CXR ( fevers, cough) * also check stool C dif * Vanco per ID, needs 2 wks for Staph epidermidis ( repeated BCX 12/20 still + with Staph epidermidis 09/02) -completed ; * repeated BCX 01/01 NGT * discussed with ID Dr Howell - Zosyn added for GN coverage 01/01, F/c changed 12/29 * UCX + Proteus, Zosyn changed to Aztreonam per ID x 10 days * stool C dif 01/03 NGT, * CXR 01/06 no acute process * unclear cause of persistent leukocytosis and intermittent fevers- * abx escalated by ID: aztreonam changed to Zosyn adn Zyvox, pt pancultured, F/ c was dc * UCX / NGTD, BCX 01/08 NGTD * CT C/ A/P done 01/09, results noted ; no findings to account for persistent leukocytosis and intermittent fevers * skin thickening and infiltration of the subcutaneous fat in the right groin/ upper thigh region, noted on CT, no clinical evidence of cellulitis . No abscess * CRP 01/05 01/10 ( down from last 16.1) * Completed 5 days of Plaquenil * s/p IVF , nephro on board * Monitor electrolytes and renal parameters * Echo 12/26 with pEF 65% and moderate left ventricular hypertrophy, no evidence of vegetation * on a/PLT therapy with ASA, statin , [facility] for afterload reduction * prior : NPO, NGTF's, EXECUTIVE SERVICES ADMINISTRATOR eval , strict aspiration precautions, unable to participate in swallow eval * Dr Toledo spoke with deidra Milton 12/27 ([phone]) and discussed further goals of care, she will need to discuss with other family members and will get back to us: either PEG placement or palliative care * awaiting for family decision, daughter decided to continue Full code and wants G tube * GI on board now, * s/p EGD and PEG 01/04, * asp precautions, GTF as per GI recs, tolerates * Full Code per prior documented ECP notes * Cont Depakote 500 mg bid from SNF * Anemia w/up c/w ACD and folate deficiency, started on folate replacement * stool OB negative * monitor HH with goal to keep Hgb above 7 * venous Duplex BUE r/o DVT @ to bilateral edema * wound care for R elbow abrasion * venous Duplex + BUE cephalic best thrombus, given + COVID and hypercoagulability state, started on Lovenox, plan a/c for 3 months, transition to Eliquis upon dc * BM biopsy was cancelled given resolved leukocytosis and fevers * heme eval if able to get -no further needs * attempted 01/12 to cancel NM WBC scan, however, the first part was already done , completed yesterday 2 nd part, awaiting readings * fup with SPEP/noted, UPEP - pending, retic -2.9 , peripheral smear pending * dc plan discussed with ID Notes Reviewed: cardio, renal, ID Discussed with: nurses, case discussed and evaluated by supervising physician Boby Toledo MD 01/14/20 1631: Subjective Allergies: Coded Allergies: MEMANTINE (Unverified Allergy, Unknown, 12/15/19) SERTRALINE (Unverified Allergy, Unknown, 12/15/19) Assessment/Plan Assessment/Plan Patient seen and examined with WARDROBE COORDINATOR, agree with above A&P as it reflects our joint deliberations. Marge Gutierrez NP January 14, 2020 08:50 Boby Toledo MD January 14, 2020 16:31
--- NOTE | 2020-01-14 09:57 | General Progress Note ---
Assessment/Plan Status: unchanged Assessment/Plan: 1. The patient is an 89-year-old female with current medical problem as COVID positive pneumonia resolving. 2. Diabetes. 3. Anemia. 4. Abnormal liver function tests. 5. Sepsis. 6. Dysphagia. 7. Non-ST elevation myocardial infarction. 8. Dementia. 9. Encephalopathy. 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 s/p GT placement GTF GT care monitor for residuals Subjective ROS Limited/Unobtainable: No Allergies: Coded Allergies: MEMANTINE (Unverified Allergy, Unknown, 12/15/19) SERTRALINE (Unverified Allergy, Unknown, 12/15/19) Objective Last 24 Hour Vital Signs Date Time Temp Pulse Resp B/P (MAP) Pulse Ox O2 Delivery O2 Flow Rate FiO2 01/14/20 08:00 97.9 69 21 115/73 (87) 98 01/14/20 06:34 131/79 01/14/20 04:00 98.1 70 20 131/79 (96) 96 01/14/20 00:00 98.1 69 18 113/65 (81) 97 01/13/20 21:53 160/71 01/13/20 21:00 Room Air 01/13/20 20:00 98.1 71 18 160/71 (100) 95 01/13/20 16:00 97.5 70 20 134/72 (92) 98 01/13/20 14:04 144/65 01/13/20 14:03 144/65 01/13/20 11:57 97.0 68 20 144/65 (91) 98 Intake and Output 01/13/20 01/14/20 19:00 07:00 Intake Total 1020.0 ml 760.0 ml Output Total 1400 ml Balance -380.0 ml 760.0 ml Intake Free Water 200 ml 200 ml IV Total 520.0 ml 110.0 ml Tube Feeding 300 ml 450 ml Output Urine Total 1400 ml # Bowel Movements 1 Laboratory Tests 01/13/20 10:23: White Blood Count 8.5, Red Blood Count 3.10L, Hemoglobin 9.7L, Hematocrit 28.8L , Mean Corpuscular Volume 93, Mean Corpuscular Hemoglobin 31.4H, Mean Corpuscular Hemoglobin Concent 33.8, Red Cell Distribution Width 13.5, Platelet Count 556H, Mean Platelet Volume 5.6L, Neutrophils (%) (Auto) 68.3, Lymphocytes (%) (Auto) 23.4, Monocytes (%) (Auto) 6.5, Eosinophils (%) (Auto) 1.1, Basophils (%) (Auto) 0.7 01/14/20 05:55: White Blood Count 6.9, Red Blood Count 2.83L, Hemoglobin 9.2L, Hematocrit 26.5L , Mean Corpuscular Volume 94, Mean Corpuscular Hemoglobin 32.4H, Mean Corpuscular Hemoglobin Concent 34.6, Red Cell Distribution Width 14.1, Platelet Count 492H, Mean Platelet Volume 5.7L, Neutrophils (%) (Auto) 55.2, Lymphocytes (%) (Auto) 35.1, Monocytes (%) (Auto) 7.4, Eosinophils (%) (Auto) 1.1, Basophils (%) (Auto) 1.1, Sodium Level 140, Potassium Level 3.8, Chloride Level 104, Carbon Dioxide Level 29, Anion Gap 7, Blood Urea Nitrogen 9, Creatinine 0.6 , Estimat Glomerular Filtration Rate > 60, Glucose Level 163H, Calcium Level 8.5 Height (Feet): 5 Height (Inches): 0.00 Weight (Pounds): 153 General Appearance: no apparent distress EENT: normal ENT inspection Neck: supple Cardiovascular: normal rate Respiratory/Chest: decreased breath sounds Abdomen: soft, hypoactive bowel sounds Extremities: non-tender Sven Villalta MD January 14, 2020 09:57
[2020-01-14] MEDS: Valproic Acid 250mg/5ml Liquid NG SCH ×2 (10:37→21:19)
[2020-01-14] MEDS: Aspirin Baby 81mg NG SCH (10:37)
[2020-01-14] MEDS: Enoxaparin 80mg Inj SUBQ SCH ×2 (10:39→21:21)
[2020-01-14 12:00] VITALS: BP_SYST 113; BP_SYST 150; BP_DIAS 58; BP_DIAS 86
--- NOTE | 2020-01-14 12:35 | Nephrology Progress Note ---
Assessment/Plan Problem List: (1) ROSARIO (acute kidney injury) (2) Dehydration (3) Electrolyte imbalance (4) NSTEMI (non-ST elevated myocardial infarction) (5) COVID-19 virus infection (6) Anemia Assessment Acute renal failure Severe dehydration Hypernatremia indicative of free water depletion Hypercalcemia likely due to dehydration Elevated hemoglobin likely secondary to hemoconcentration Elevated troponin Poor p.o. intake / failure to thrive Dementia Hypertension Exposure to COVID-19 Plan Covid19 test positive Received PEG today January 04 WBCs carlene over 15,000, but now is WNL Stable from renal standpoint to view Continue per ID advice Previously: Discontinue potassium chloride p.o. IV Protonix to Prevacid via NG tube At the folic acid to medication Watch declining hemoglobin Aspirin 2D echocardiogram, results still pending Nitropaste Avoid nephrotoxic's Monitor renal parameters Monitor hemoglobin hematocrit Avoid mind altering medication in view of severe lethargy Per orders Subjective ROS Limited/Unobtainable: No Constitutional: Reports: malaise Objective Objective Last 24 Hour Vital Signs Date Time Temp Pulse Resp B/P (MAP) Pulse Ox O2 Delivery O2 Flow Rate FiO2 01/14/20 09:00 Room Air 01/14/20 08:00 97.9 69 21 115/73 (87) 98 01/14/20 06:34 131/79 01/14/20 04:00 98.1 70 20 131/79 (96) 96 01/14/20 00:00 98.1 69 18 113/65 (81) 97 01/13/20 21:53 160/71 01/13/20 21:00 Room Air 01/13/20 20:00 98.1 71 18 160/71 (100) 95 01/13/20 16:00 97.5 70 20 134/72 (92) 98 01/13/20 14:04 144/65 01/13/20 14:03 144/65 Intake and Output 01/13/20 01/14/20 19:00 07:00 Intake Total 1020.0 ml 760.0 ml Output Total 1400 ml Balance -380.0 ml 760.0 ml Intake Free Water 200 ml 200 ml IV Total 520.0 ml 110.0 ml Tube Feeding 300 ml 450 ml Output Urine Total 1400 ml # Bowel Movements 1 Laboratory Tests 01/14/20 05:55: White Blood Count 6.9, Red Blood Count 2.83L, Hemoglobin 9.2L, Hematocrit 26.5L , Mean Corpuscular Volume 94, Mean Corpuscular Hemoglobin 32.4H, Mean Corpuscular Hemoglobin Concent 34.6, Red Cell Distribution Width 14.1, Platelet Count 492H, Mean Platelet Volume 5.7L, Neutrophils (%) (Auto) 55.2, Lymphocytes (%) (Auto) 35.1, Monocytes (%) (Auto) 7.4, Eosinophils (%) (Auto) 1.1, Basophils (%) (Auto) 1.1, Sodium Level 140, Potassium Level 3.8, Chloride Level 104, Carbon Dioxide Level 29, Anion Gap 7, Blood Urea Nitrogen 9, Creatinine 0.6 , Estimat Glomerular Filtration Rate > 60, Glucose Level 163H, Calcium Level 8.5 Height (Feet): 5 Height (Inches): 0.00 Weight (Pounds): 153 General Appearance: no apparent distress Objective No change Robert Foreman MD January 14, 2020 12:35
--- NOTE | 2020-01-14 12:52 | Diagnostic Imaging Report ---
Indication: Persistent leukocytosis. Technique: 490 uCi of Indium labelled WBCs was injected intravenously. Labelling performed using an in-vitro technique. A whole-body bone scan was then performed in anterior and posterior projections after a 24 hour delay. Comparison: None FINDINGS/IMPRESSION: Only a small faint area of abnormal uptake is noted in the anterior abdominal wall just left of midline likely corresponding with mild soft tissue induration at the entry site of the PEG tube. No additional abnormal focus of radiotracer uptake identified.
--- NOTE | 2020-01-14 13:58 | Surgery Progress Note ---
Surgery Progress Note Subjective Additional Comments labs noted exam unchanged Objective Last 24 Hour Vital Signs Date Time Temp Pulse Resp B/P (MAP) Pulse Ox O2 Delivery O2 Flow Rate FiO2 01/14/20 13:38 150/86 01/14/20 09:00 Room Air 01/14/20 08:00 97.9 69 21 115/73 (87) 98 01/14/20 06:34 131/79 01/14/20 04:00 98.1 70 20 131/79 (96) 96 01/14/20 00:00 98.1 69 18 113/65 (81) 97 01/13/20 21:53 160/71 01/13/20 21:00 Room Air 01/13/20 20:00 98.1 71 18 160/71 (100) 95 01/13/20 16:00 97.5 70 20 134/72 (92) 98 01/13/20 14:04 144/65 01/13/20 14:03 144/65 I&O Intake and Output 01/13/20 01/14/20 19:00 07:00 Intake Total 1020.0 ml 760.0 ml Output Total 1400 ml Balance -380.0 ml 760.0 ml Intake Free Water 200 ml 200 ml IV Total 520.0 ml 110.0 ml Tube Feeding 300 ml 450 ml Output Urine Total 1400 ml # Bowel Movements 1 Dressing: saturated Cardiovascular: RSR Respiratory: clear Abdomen: soft, non-tender, present bowel sounds Extremities: no tenderness, no cyanosis Laboratory Tests Test 01/14/20 05:55 White Blood Count 6.9 K/UL (4.8-10.8) Red Blood Count 2.83 M/UL (4.20-5.40) L Hemoglobin 9.2 G/DL (12.0-16.0) L Hematocrit 26.5 % (37.0-47.0) L Mean Corpuscular Volume 94 FL (80-99) Mean Corpuscular Hemoglobin 32.4 PG (27.0-31.0) H Mean Corpuscular Hemoglobin Concent 34.6 G/DL (32.0-36.0) Red Cell Distribution Width 14.1 % (11.6-14.8) Platelet Count 492 K/UL (150-450) H Mean Platelet Volume 5.7 FL (6.5-10.1) L Neutrophils (%) (Auto) 55.2 % (45.0-75.0) Lymphocytes (%) (Auto) 35.1 % (20.0-45.0) Monocytes (%) (Auto) 7.4 % (1.0-10.0) Eosinophils (%) (Auto) 1.1 % (0.0-3.0) Basophils (%) (Auto) 1.1 % (0.0-2.0) Sodium Level 140 MMOL/L (136-145) Potassium Level 3.8 MMOL/L (3.5-5.1) Chloride Level 104 MMOL/L (98-107) Carbon Dioxide Level 29 MMOL/L (21-32) Anion Gap 7 mmol/L (5-15) Blood Urea Nitrogen 9 mg/dL (7-18) Creatinine 0.6 MG/DL (0.55-1.30) Estimat Glomerular Filtration Rate > 60 mL/min (>60) Glucose Level 163 MG/DL (74-106) H Calcium Level 8.5 MG/DL (8.5-10.1) Plan Problems: (1) Leukocytosis Assessment & Plan: Acute leukocytosis. Microbiology identified staph E. On antibiotics per infectious disease. WBC trending down. Complete examination identified no external source of potential staph infection in the blood bacteremia DTI noted Continue antibiotics as per infectious disease Trend labs persistent wbc micro reviewed as above worsening ID input appreciated We will follow with recommendations (2) Sepsis Assessment & Plan: negative x 2 CO VID Pneumonia improving Recent acute leukocytosis trending down Course of hydroxy completed stable Improving Continue current care plan Abnormal LFTs identified Hold on abdominal ultrasound for now nutritional optimization turn q2h off load pressures cont tube feeds at goal fever improving wbc improving DAILY ESTIMATED NEEDS: Needs based on ROSARIO, sepsis, Cardiac/ 52kg abw 25-30 kcals/kg 0221-9789 total kcals 1-2 g protein/kg 52-104 g total protein 25-30 mL/kg 7834-6900 total fluid mLs NUTRITION DIAGNOSIS: Swallowing difficulty R/T dysphagia, AMS, lethargy as evidenced by NPO at this time, TECHNOLOGY RESOURCE TEACHER eval pending, FTT dx, s/p PEG placement. CURRENT TF:Jevity 1.2 @ 50ml/hr x 24 hrs ENTERAL NUTRITION RECOMMENDATIONS: Jevity 1.2 @ 50ml/hr x 24 hrs to provide 1200ml, 1440kcal, 66g prot, 968ml free water * Maintain current TF * HOB over 30 degrees * Water flush of 150ml q 8 hrs --- W/ consistently elev BGs, rec Glucerna 1.5 (Glucerna 1.2 is out of stock) @ goal rate of 40ml/hr x 24 hrs to provide 960ml, 1440kcal, 79g prot, 729ml free water. ADDITIONAL RECOMMENDATIONS: * Calibrated bedscale wt for accurate CBW- discrepency wt in EMR noted per SNF record: HT=60", AR=546.4lbs (December 2019) - RECALIBRATE BEDSCALE (BEDSCALE READS "0" ON 01/09) * Monitor lytes, replete as needed * Monitor BGs, need for carb controlled TF (3) Staphylococcus epidermidis bacteremia Assessment & Plan: As above Andi Valera January 14, 2020 13:58
[2020-01-14 16:00] VITALS: BP 113/58
[2020-01-14 20:00] VITALS: BP 138/68
[2020-01-14] MEDS: Atorvastatin 20mg tab NG SCH (21:19)
--- NOTE | 2020-01-14 21:40 | Infectious Diseases Prog Note ---
Assessment/Plan Problems: (1) Leukocytosis Assessment & Plan: with recurrent fever while on aztreonam , withn no evidence of new infection and negative panculture and CT image for any source of infection , suspect bone marrow pathology VS Thrombophlebitis . repeated Blood culture x 2 is negative , urine culture showed no growth , CXR no acute or new infiltrates or effusion , her Harris catheter was changed on January 08. will continue zosyn and zyvox for 7 days course of treatment for thrombophlebitis , indium scan is negative for active focus of infection (2) Catheter-associated urinary tract infection Assessment & Plan: with PROTEUS MIRABILIS , now on zosyn for 7 days , repeated urine culture showed no growth and her Harris catheter was changed (3) Sepsis Assessment & Plan: with fever and leukocytosis , source ? repeated blood cultures 2 is NTD , CXR showed no new infiltration or effusion, and urine culture showed no growth, ct abd/pelvis and chest is negative for infectious source . indium scan no occult focus of infection . (4) COVID-19 virus infection Assessment & Plan: off enhanced droplet isolation, S/P hydroxychloroquin with zinc and vitamin C for five days total.repeated PCR test times two so far is negative. 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 in both arms, continue full anticoagulation as per primary , high risk for thrombosis due to recent COVID 19 infection. continue antibiotics for 7 days total Subjective ROS Limited/Unobtainable: Yes Allergies: Coded Allergies: MEMANTINE (Unverified Allergy, Unknown, 12/15/19) SERTRALINE (Unverified Allergy, Unknown, 12/15/19) Subjective she was u in bed , awake and responsive, no fever today, or cough and no phlegm or SOB, responsive but confused , no diarrhea so far , urine is clear and Harris catheter was changed Objective Vital Signs Last 24 Hour Vital Signs Date Time Temp Pulse Resp B/P (MAP) Pulse Ox O2 Delivery O2 Flow Rate FiO2 01/14/20 21:19 118/62 01/14/20 16:00 98.1 68 21 113/58 (76) 96 01/14/20 13:38 150/86 01/14/20 12:00 97.9 73 21 150/86 (107) 98 01/14/20 09:00 Room Air 01/14/20 08:00 97.9 69 21 115/73 (87) 98 01/14/20 06:34 131/79 01/14/20 04:00 98.1 70 20 131/79 (96) 96 01/14/20 00:00 98.1 69 18 113/65 (81) 97 01/13/20 21:53 160/71 Height (Feet): 5 Height (Inches): 0.00 Weight (Pounds): 153 General Appearance: WD/WN, no acute distress HEENT: normocephalic, atraumatic, anicteric, mucous membranes moist, PERRL Respiratory/Chest: chest wall non-tender, lungs clear, normal breath sounds, no respiratory distress, no accessory muscle use Cardiovascular: normal peripheral pulses, normal rate, regular rhythm, no gallop/murmur, no JVD Abdomen: normal bowel sounds, soft, non tender, no organomegaly, non distended , no mass, no scars Genitourinary: normal external genitalia Extremities: no cyanosis, no clubbing Skin: no rash, no lesions, ulcers 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: bat boy/girl II-XII grossly normal, alert, responsive Lymphatic: no neck adenopathy, no groin adenopathy Musculoskeletal: normal muscle bulk, no effusion Laboratory Tests Test 01/14/20 05:55 White Blood Count 6.9 K/UL (4.8-10.8) Red Blood Count 2.83 M/UL (4.20-5.40) L Hemoglobin 9.2 G/DL (12.0-16.0) L Hematocrit 26.5 % (37.0-47.0) L Mean Corpuscular Volume 94 FL (80-99) Mean Corpuscular Hemoglobin 32.4 PG (27.0-31.0) H Mean Corpuscular Hemoglobin Concent 34.6 G/DL (32.0-36.0) Red Cell Distribution Width 14.1 % (11.6-14.8) Platelet Count 492 K/UL (150-450) H Mean Platelet Volume 5.7 FL (6.5-10.1) L Neutrophils (%) (Auto) 55.2 % (45.0-75.0) Lymphocytes (%) (Auto) 35.1 % (20.0-45.0) Monocytes (%) (Auto) 7.4 % (1.0-10.0) Eosinophils (%) (Auto) 1.1 % (0.0-3.0) Basophils (%) (Auto) 1.1 % (0.0-2.0) Sodium Level 140 MMOL/L (136-145) Potassium Level 3.8 MMOL/L (3.5-5.1) Chloride Level 104 MMOL/L (98-107) Carbon Dioxide Level 29 MMOL/L (21-32) Anion Gap 7 mmol/L (5-15) Blood Urea Nitrogen 9 mg/dL (7-18) Creatinine 0.6 MG/DL (0.55-1.30) Estimat Glomerular Filtration Rate > 60 mL/min (>60) Glucose Level 163 MG/DL (74-106) H Calcium Level 8.5 MG/DL (8.5-10.1) Current Medications Medications (Trade) Dose Ordered Sig/Ovi Route PRN Reason Start Time Stop Time Status Last Admin Dose Admin Acetaminophen (Tylenol) 650 mg Q4H PRN NG Temp >100.5 01/05/20 12:16 02/04/20 12:15 01/09/20 08:45 Aspirin (ASA) 81 mg DAILY NG 01/06/20 09:00 02/02/20 08:59 01/14/20 10:37 Atorvastatin Calcium (Lipitor) 20 mg BEDTIME NG 01/05/20 21:00 03/18/20 20:59 01/14/20 21:19 Captopril (Capoten) 6.25 mg EVERY 8 HOURS NG 01/05/20 14:00 01/24/20 20:59 01/14/20 21:19 Enoxaparin Sodium (Lovenox) 70 mg EVERY 12 HOURS SUBQ 01/11/20 21:00 04/10/20 20:59 01/14/20 21:21 Folic Acid (Folate) 2 mg DAILY NG 01/06/20 09:00 01/29/20 11:59 01/14/20 10:37 Lansoprazole (Prevacid) 30 mg BID NG 01/05/20 18:00 01/28/20 17:59 01/14/20 18:55 Linezolid 300 ml @ 300 mls/hr Q12H IVPB 01/09/20 18:00 01/16/20 17:59 01/14/20 18:55 Piperacillin Sod/ Tazobactam Sod 3.375 gm/Sodium Chloride 110 ml @ 27.5 mls/hr EVERY 8 HOURS IVPB 01/09/20 14:00 01/18/20 13:59 01/14/20 13:35 Valproic Acid (Depakene) 500 mg EVERY 12 HOURS NG 01/05/20 21:00 01/17/20 23:14 01/14/20 21:19 Sukhjinder Howell M.D. January 14, 2020 21:40
[2020-01-15] VITALS: BP 129/74
[2020-01-15 04:00] VITALS: BP 120/69
[2020-01-15] MEDS: Captopril 12.5mg tab NG SCH ×3 (06:12→21:30)
[2020-01-15] MEDS: Piperacillin/Tazobactam 3.375 GM in NS 110 ML IVPB SCH ×3 (06:55→21:30)
--- NOTE | 2020-01-15 07:07 | General Progress Note ---
Assessment/Plan Status: unchanged Assessment/Plan: 1. The patient is an 89-year-old female with current medical problem as COVID positive pneumonia resolving. 2. Diabetes. 3. Anemia. 4. Abnormal liver function tests. 5. Sepsis. 6. Dysphagia. 7. Non-ST elevation myocardial infarction. 8. Dementia. 9. Encephalopathy. 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 s/p GT placement GTF GT care monitor for residuals Subjective ROS Limited/Unobtainable: No Allergies: Coded Allergies: MEMANTINE (Unverified Allergy, Unknown, 12/15/19) SERTRALINE (Unverified Allergy, Unknown, 12/15/19) Objective Last 24 Hour Vital Signs Date Time Temp Pulse Resp B/P (MAP) Pulse Ox O2 Delivery O2 Flow Rate FiO2 01/15/20 06:12 120/69 01/15/20 04:00 97.8 73 20 120/69 (86) 95 01/15/20 00:00 98.0 78 20 129/74 (92) 95 01/14/20 21:19 118/62 01/14/20 21:00 Room Air 01/14/20 20:00 98.6 76 21 138/68 (91) 95 01/14/20 16:00 98.1 68 21 113/58 (76) 96 01/14/20 13:38 150/86 01/14/20 12:00 97.9 73 21 150/86 (107) 98 01/14/20 09:00 Room Air 01/14/20 08:00 97.9 69 21 115/73 (87) 98 Intake and Output 01/14/20 01/15/20 19:00 07:00 Intake Total 50 ml 1110.0 ml Output Total 600 ml Balance -550 ml 1110.0 ml Intake Free Water 200 ml IV Total 410.0 ml Tube Feeding 50 ml 500 ml Output Urine Total 600 ml # Voids 2 1 # Bowel Movements 1 Laboratory Tests 01/15/20 05:40: White Blood Count [Pending], Red Blood Count [Pending], Hemoglobin [Pending], Hematocrit [Pending], Mean Corpuscular Volume [Pending], Mean Corpuscular Hemoglobin [Pending], Mean Corpuscular Hemoglobin Concent [Pending], Red Cell Distribution Width [Pending], Platelet Count [Pending], Mean Platelet Volume [ Pending], Neutrophils (%) (Auto) [Pending], Lymphocytes (%) (Auto) [Pending], Monocytes (%) (Auto) [Pending], Eosinophils (%) (Auto) [Pending], Basophils (%) (Auto) [Pending] Height (Feet): 5 Height (Inches): 0.00 Weight (Pounds): 153 General Appearance: no apparent distress EENT: PERRL/EOMI Neck: normal alignment Cardiovascular: normal rate Respiratory/Chest: decreased breath sounds Abdomen: normal bowel sounds, non tender, soft Extremities: non-tender Sven Villalta MD January 15, 2020 07:07
[2020-01-15 08:00] VITALS: BP 132/68
--- NOTE | 2020-01-15 08:14 | Pulmonology Progress Note ---
Marge Gutierrez RANCH RIDER 01/15/20 0814: Subjective ROS Limited/Unobtainable: No Interval Events: Allergies: Coded Allergies: MEMANTINE (Unverified Allergy, Unknown, 12/15/19) SERTRALINE (Unverified Allergy, Unknown, 12/15/19) Subjective leukocytosis resolved, no fevers since 01/09 [place] SARS- CoV -2 by PCR 12/21 , 12/24 , 01/09, 01/10 not detected s/p EGF and PEG 01/04 tolerates TF CXR 01/06 no definite acute process Venous Duplex + DVT cephalic vein BUE, started on Lovenox more awake, but poorly responsive Objective Last 24 Hour Vital Signs Date Time Temp Pulse Resp B/P (MAP) Pulse Ox O2 Delivery O2 Flow Rate FiO2 01/15/20 06:12 120/69 01/15/20 04:00 97.8 73 20 120/69 (86) 95 01/15/20 00:00 98.0 78 20 129/74 (92) 95 01/14/20 21:19 118/62 01/14/20 21:00 Room Air 01/14/20 20:00 98.6 76 21 138/68 (91) 95 01/14/20 16:00 98.1 68 21 113/58 (76) 96 01/14/20 13:38 150/86 01/14/20 12:00 97.9 73 21 150/86 (107) 98 01/14/20 09:00 Room Air Intake and Output 01/14/20 01/15/20 19:00 07:00 Intake Total 50 ml 1110.0 ml Output Total 600 ml Balance -550 ml 1110.0 ml Intake Free Water 200 ml IV Total 410.0 ml Tube Feeding 50 ml 500 ml Output Urine Total 600 ml # Voids 2 1 # Bowel Movements 1 Objective General Appearance: WD/WN, in no acute distress elderly AA female , awake, HEENT: normocephalic, atraumatic, anicteric, mucous membranes moist, PERRL, Respiratory/Chest: BS overall clear Cardiovascular: normal peripheral pulses, normal rate, Abdomen: normal bowel sounds, soft, non tender, , G tube with TF infusing, site clean, abd binder on Genitourinary: normal external genitalia Extremities: no cyanosis, no clubbing, edema BUE Skin: no rash, R elbow abrasion, no ulcers 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: 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 normal, awake, but poorly responsive Lymphatic: no neck adenopathy, no groin adenopathy Musculoskeletal: muscle atrophy, no effusion Current Medications Medications (Trade) Dose Ordered Sig/Ovi Route PRN Reason Start Time Stop Time Status Last Admin Dose Admin Acetaminophen (Tylenol) 650 mg Q4H PRN NG Temp >100.5 01/05/20 12:16 02/04/20 12:15 01/09/20 08:45 Aspirin (ASA) 81 mg DAILY NG 01/06/20 09:00 02/02/20 08:59 01/14/20 10:37 Atorvastatin Calcium (Lipitor) 20 mg BEDTIME NG 01/05/20 21:00 03/18/20 20:59 01/14/20 21:19 Captopril (Capoten) 6.25 mg EVERY 8 HOURS NG 01/05/20 14:00 01/24/20 20:59 01/15/20 06:12 Enoxaparin Sodium (Lovenox) 70 mg EVERY 12 HOURS SUBQ 01/11/20 21:00 04/10/20 20:59 01/14/20 21:21 Folic Acid (Folate) 2 mg DAILY NG 01/06/20 09:00 01/29/20 11:59 01/14/20 10:37 Lansoprazole (Prevacid) 30 mg BID NG 01/05/20 18:00 01/28/20 17:59 01/14/20 18:55 Linezolid 300 ml @ 300 mls/hr Q12H IVPB 01/09/20 18:00 01/18/20 17:59 01/15/20 05:43 Piperacillin Sod/ Tazobactam Sod 3.375 gm/Sodium Chloride 110 ml @ 27.5 mls/hr EVERY 8 HOURS IVPB 01/09/20 14:00 01/18/20 13:59 01/15/20 06:55 Valproic Acid (Depakene) 500 mg EVERY 12 HOURS NG 01/05/20 21:00 01/17/20 23:14 01/14/20 21:19 Assessment/Plan Assessment/Plan PROBLEMS Confirmed COVID-19 virus infection Viral pneumonia Electrolyte imbalance NSTEMI (non-ST elevated myocardial infarction) Encephalopathy Dehydration ROSARIO (acute kidney injury) Staphylococcus epidermidis bacteremia Anemia Persistent leukocytosis with intermittent fevers ASSESSMENT Probably sepsis ( POA, with leukocytosis, lactic acidosis, evidence of infection ) Confirmed CoVID 19 infection Acute hypoxemic respiratory failure-resolved S epidermis bacteremia New leukocytosis with fevers, Proteus UTI Acute renal failure - RESOLVED Severe dehydration - IMPROVED Hypernatremia indicative of free water depletion Hypercalcemia likely due to dehydration Elevated hemoglobin likely secondary to hemoconcentration, now anemia Elevated troponin/NSTEMI Poor p.o. intake / failure to thrive Dementia Hypertension Generalized anxiety disorder Dysphagia , s/p EGD and PEG 01/04 Anemia of chronic disease Folate deficiency DVT BUE cephalic vein PLAN OF CARE * COVID-19 isolation status, confirmed 12/14, * repeat COVID 12/21- and 12/24 NGT -> off isolation now * COVID 19 NGT 01/09 and 01/10 * on [facility] floor * monitor oxygenation closely, on RA or only on 1-2L nasal cannula * CXR prn only if worsening symptoms, CXR 12/16 clear lungs * fup CXR 12/25 done , given mild leukocytosis -no acute findings * worsening leukocytosis, fevers, recultured 12/31, fup with cx: UA + pyuria, UCX -GNB ; BCX 01/01 -NGTD * CXR 01/01 No focal consolidative process or pleural effusions, not likely PNA, leuk probably due to UTI * repeat CXR ( fevers, cough) * also check stool C dif * Vanco per ID, needs 2 wks for Staph epidermidis ( repeated BCX 12/20 still + with Staph epidermidis 09/02) -completed ; * repeated BCX 01/01 NGT * discussed with ID Dr Howell - Zosyn added for GN coverage 01/01, F/c changed 12/29 * UCX + Proteus, Zosyn changed to Aztreonam per ID x 10 days * stool C dif 01/03 NGT, * CXR 01/06 no acute process * unclear cause of persistent leukocytosis and intermittent fevers- * abx escalated by ID: aztreonam changed to Zosyn adn Zyvox, pt pancultured, F/ c was dc * UCX 01/08 NGTD, BCX 01/08 NGTD * CT C/ A/P done 01/09, results noted ; no findings to account for persistent leukocytosis and intermittent fevers * skin thickening and infiltration of the subcutaneous fat in the right groin/ upper thigh region, noted on CT, no clinical evidence of cellulitis . 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, unable to participate in swallow eval * Dr Toledo spoke with daughter Dayna Milton 12/27 ([phone]) and discussed further goals of care, she will need to discuss with other family members and will get back to us: either PEG placement or palliative care * awaiting for family decision, daughter decided to continue Full code and wants G tube * GI on board now, * s/p EGD and PEG 01/04, * asp precautions, GTF as per GI recs, tolerates * Full Code per prior documented ECP notes * Cont Depakote 500 mg bid from SNF * Anemia w/up c/w ACD and folate deficiency, started on folate replacement * stool OB negative * monitor HH with goal to keep Hgb above 7 * venous Duplex BUE r/o DVT @ to bilateral edema * wound care for R elbow abrasion * venous Duplex + BUE cephalic best thrombus, given + COVID and hypercoagulability state, started on Lovenox, plan a/c for 3 months, transition to Eliquis upon dc * BM biopsy was cancelled given resolved leukocytosis and fevers * heme eval if able to get -no further needs * attempted 01/12 to cancel NM WBC scan, however, the first part was already done , completed yesterday 2 nd part, awaiting readings * fup with SPEP/noted, UPEP - pending, retic -2.9 , peripheral smear pending * dc plan discussed with ID Notes Reviewed: cardio, renal, ID Discussed with: nurses, case discussed and evaluated by supervising physician Boby Toledo MD 01/15/20 2018: Subjective Allergies: Coded Allergies: MEMANTINE (Unverified Allergy, Unknown, 12/15/19) SERTRALINE (Unverified Allergy, Unknown, 12/15/19) Assessment/Plan Assessment/Plan Patient seen and examined with RANCH RIDER. Agree with above A&P as it reflects our joint deliberations. Marge Gutierrez NP January 15, 2020 08:14 Boby Toledo MD January 15, 2020 20:18
[2020-01-15] MEDS: Aspirin Baby 81mg NG SCH (08:47)
[2020-01-15] MEDS: Valproic Acid 250mg/5ml Liquid NG SCH ×2 (08:48→20:42)
[2020-01-15] MEDS: Enoxaparin 80mg Inj SUBQ SCH ×2 (08:51→20:49)
[2020-01-15 09:53] LABS: BASOPHILS % (AUTO) 0.7 % (0.0-2.0); EOSINOPHILS % (AUTO) 0.5 % (0.0-3.0); HEMATOCRIT 28.2 % (37.0-47.0); HEMOGLOBIN 9.7 G/DL (12.0-16.0); LYMPHOCYTES % (AUTO) 28.8 % (20.0-45.0); MEAN CORPUSCULAR VOLUME 92 FL (80-99); NEUTROPHILS % (AUTO) 63.1 % (45.0-75.0); PLATELET COUNT 454 K/UL (150-450); RED BLOOD COUNT 3.05 M/UL (4.20-5.40); RED CELL DISTRIBUTION WIDTH 13.8 % (11.6-14.8); WHITE BLOOD COUNT 8.9 K/UL (4.8-10.8)
[2020-01-15 12:00] VITALS: BP 127/59
--- NOTE | 2020-01-15 13:16 | Nephrology Progress Note ---
Assessment/Plan Problem List: (1) ROSARIO (acute kidney injury) (2) Dehydration (3) Electrolyte imbalance (4) NSTEMI (non-ST elevated myocardial infarction) (5) COVID-19 virus infection (6) Anemia Assessment Acute renal failure Severe dehydration Hypernatremia indicative of free water depletion Hypercalcemia likely due to dehydration Elevated hemoglobin likely secondary to hemoconcentration Elevated troponin Poor p.o. intake / failure to thrive Dementia Hypertension Exposure to COVID-19 Plan Covid19 test positive Received PEG today January 04 WBCs carlene over 15,000, but now is WNL Stable from renal standpoint to view Continue per ID advice Previously: Discontinue potassium chloride p.o. IV Protonix to Prevacid via NG tube At the folic acid to medication Watch declining hemoglobin Aspirin 2D echocardiogram, results still pending Nitropaste Avoid nephrotoxic's Monitor renal parameters Monitor hemoglobin hematocrit Avoid mind altering medication in view of severe lethargy Per orders Subjective ROS Limited/Unobtainable: No Constitutional: Reports: malaise Objective Objective Last 24 Hour Vital Signs Date Time Temp Pulse Resp B/P (MAP) Pulse Ox O2 Delivery O2 Flow Rate FiO2 01/15/20 12:00 98.1 69 20 127/59 (81) 97 01/15/20 09:00 Room Air 01/15/20 08:00 98.6 64 18 132/68 (89) 96 01/15/20 06:12 120/69 01/15/20 04:00 97.8 73 20 120/69 (86) 95 01/15/20 00:00 98.0 78 20 129/74 (92) 95 01/14/20 21:19 118/62 01/14/20 21:00 Room Air 01/14/20 20:00 98.6 76 21 138/68 (91) 95 01/14/20 16:00 98.1 68 21 113/58 (76) 96 01/14/20 13:38 150/86 Intake and Output 01/14/20 01/15/20 19:00 07:00 Intake Total 50 ml 1110.0 ml Output Total 600 ml Balance -550 ml 1110.0 ml Intake Free Water 200 ml IV Total 410.0 ml Tube Feeding 50 ml 500 ml Output Urine Total 600 ml # Voids 2 1 # Bowel Movements 1 Laboratory Tests 01/15/20 09:40: White Blood Count 8.9, Red Blood Count 3.05L, Hemoglobin 9.7L, Hematocrit 28.2L , Mean Corpuscular Volume 92, Mean Corpuscular Hemoglobin 31.8H, Mean Corpuscular Hemoglobin Concent 34.4, Red Cell Distribution Width 13.8, Platelet Count 454H, Mean Platelet Volume 5.5L, Neutrophils (%) (Auto) 63.1, Lymphocytes (%) (Auto) 28.8, Monocytes (%) (Auto) 7.0, Eosinophils (%) (Auto) 0.5, Basophils (%) (Auto) 0.7 Height (Feet): 5 Height (Inches): 0.00 Weight (Pounds): 153 General Appearance: no apparent distress Cardiovascular: normal rate Respiratory/Chest: decreased breath sounds Abdomen: soft Objective No change Robert Foreman MD January 15, 2020 13:16
--- NOTE | 2020-01-15 14:39 | Surgery Progress Note ---
Surgery Progress Note Subjective Additional Comments no acute events lab noted imaging reviewed comfortable Objective Last 24 Hour Vital Signs Date Time Temp Pulse Resp B/P (MAP) Pulse Ox O2 Delivery O2 Flow Rate FiO2 01/15/20 12:00 98.1 69 20 127/59 (81) 97 01/15/20 09:00 Room Air 01/15/20 08:00 98.6 64 18 132/68 (89) 96 01/15/20 06:12 120/69 01/15/20 04:00 97.8 73 20 120/69 (86) 95 01/15/20 00:00 98.0 78 20 129/74 (92) 95 01/14/20 21:19 118/62 01/14/20 21:00 Room Air 01/14/20 20:00 98.6 76 21 138/68 (91) 95 01/14/20 16:00 98.1 68 21 113/58 (76) 96 I&O Intake and Output 01/14/20 01/15/20 19:00 07:00 Intake Total 50 ml 1110.0 ml Output Total 600 ml Balance -550 ml 1110.0 ml Intake Free Water 200 ml IV Total 410.0 ml Tube Feeding 50 ml 500 ml Output Urine Total 600 ml # Voids 2 1 # Bowel Movements 1 Dressing: other Wound: other Drains: other Cardiovascular: RSR Respiratory: decreased breath sounds Abdomen: soft, non-tender, present bowel sounds Extremities: no tenderness, no cyanosis Laboratory Tests Test 01/15/20 09:40 White Blood Count 8.9 K/UL (4.8-10.8) Red Blood Count 3.05 M/UL (4.20-5.40) L Hemoglobin 9.7 G/DL (12.0-16.0) L Hematocrit 28.2 % (37.0-47.0) L Mean Corpuscular Volume 92 FL (80-99) Mean Corpuscular Hemoglobin 31.8 PG (27.0-31.0) H Mean Corpuscular Hemoglobin Concent 34.4 G/DL (32.0-36.0) Red Cell Distribution Width 13.8 % (11.6-14.8) Platelet Count 454 K/UL (150-450) H Mean Platelet Volume 5.5 FL (6.5-10.1) L Neutrophils (%) (Auto) 63.1 % (45.0-75.0) Lymphocytes (%) (Auto) 28.8 % (20.0-45.0) Monocytes (%) (Auto) 7.0 % (1.0-10.0) Eosinophils (%) (Auto) 0.5 % (0.0-3.0) Basophils (%) (Auto) 0.7 % (0.0-2.0) Plan Problems: (1) Leukocytosis Assessment & Plan: Acute leukocytosis. Microbiology identified staph E. On antibiotics per infectious disease. WBC trending down. Complete examination identified no external source of potential staph infection in the blood bacteremia DTI noted Continue antibiotics as per infectious disease Trend labs persistent wbc micro reviewed as above worsening ID input appreciated We will follow with recommendations (2) Sepsis Assessment & Plan: negative x 2 CO VID Pneumonia improving Recent acute leukocytosis trending down Course of hydroxy completed stable Improving Continue current care plan Abnormal LFTs identified Hold on abdominal ultrasound for now nutritional optimization turn q2h off load pressures cont tube feeds at goal fever improving wbc improving DAILY ESTIMATED NEEDS: Needs based on ROSARIO, sepsis, Cardiac/ 52kg abw 25-30 kcals/kg 8595-2880 total kcals 1-2 g protein/kg 52-104 g total protein 25-30 mL/kg 0864-7011 total fluid mLs NUTRITION DIAGNOSIS: Swallowing difficulty R/T dysphagia, AMS, lethargy as evidenced by NPO at this time, [employer]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 CURRENT TF:Jevity 1.2 @ 50ml/hr x 24 hrs ENTERAL NUTRITION RECOMMENDATIONS: Jevity 1.2 @ 50ml/hr x 24 hrs to provide 1200ml, 1440kcal, 66g prot, 968ml free water * Maintain current TF * HOB over 30 degrees * Water flush of 150ml q 8 hrs --- W/ consistently elev BGs, rec Glucerna 1.5 (Glucerna 1.2 is out of stock) @ goal rate of 40ml/hr x 24 hrs to provide 960ml, 1440kcal, 79g prot, 729ml free water. ADDITIONAL RECOMMENDATIONS: * Calibrated bedscale wt for accurate CBW- discrepency wt in EMR noted per SNF record: HT=60", UA=108.4lbs (December 2019) - RECALIBRATE BEDSCALE (BEDSCALE READS "0" ON 01/09) * Monitor lytes, replete as needed * Monitor BGs, need for carb controlled TF (3) Staphylococcus epidermidis bacteremia Assessment & Plan: As above Andi Valera January 15, 2020 14:39
[2020-01-15 16:00] VITALS: BP 119/71
--- NOTE | 2020-01-15 17:40 | Cardiology Progress Note ---
Assessment/Plan Problem List: (1) COVID-19 virus infection (2) NSTEMI (non-ST elevated myocardial infarction) (3) Electrolyte imbalance (4) Sepsis Status: stable, progressing Status Narrative COVID 19 pneumonia S epi bacteremia Non STEMI - demand ischemia. Troponin elevated on adm. clinical picture c/w type 2 WI in setting of sepsis. 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 No ECHO w/ EF 65%, nl wall motion Hypokalemia - resolved RF -due to vol depletion, now resolved Dementia Aspiration risk, s/p g tube Assessment/Plan Continue supportive care Continue iv antibiotics per ID for proteus UTI COVID negative x2, w/ additional test pending, following treatment w/ hydroxychloroquine, zn, and vit c asa, statin, and would consider b blockers for CAD Kp inhibitors for HTN, afterload reduction. Subjective ROS Limited/Unobtainable: Yes Subjective Cardiology for Dr. Rosen Pt calm. Oriented to person, hospital. Objective Last 24 Hour Vital Signs Date Time Temp Pulse Resp B/P (MAP) Pulse Ox O2 Delivery O2 Flow Rate FiO2 01/15/20 16:00 98.2 70 20 119/71 (87) 97 01/15/20 14:00 127/59 01/15/20 12:00 98.1 69 20 127/59 (81) 97 01/15/20 09:00 Room Air 01/15/20 08:00 98.6 64 18 132/68 (89) 96 01/15/20 06:12 120/69 01/15/20 04:00 97.8 73 20 120/69 (86) 95 01/15/20 00:00 98.0 78 20 129/74 (92) 95 01/14/20 21:19 118/62 01/14/20 21:00 Room Air 01/14/20 20:00 98.6 76 21 138/68 (91) 95 General Appearance: WD/WN, no apparent distress, alert EENT: PERRL/EOMI Neck: supple, no JVD Rhythm: NSR Cardiovascular: normal rate, no gallop/murmur Respiratory/Chest: lungs clear, other - clear anteriorly Abdomen: non tender, soft Extremities: no swelling Intake and Output 01/14/20 01/15/20 19:00 07:00 Intake Total 50 ml 1110.0 ml Output Total 600 ml Balance -550 ml 1110.0 ml Intake Free Water 200 ml IV Total 410.0 ml Tube Feeding 50 ml 500 ml Output Urine Total 600 ml # Voids 2 1 # Bowel Movements 1 Laboratory Tests Test 01/15/20 09:40 White Blood Count 8.9 K/UL (4.8-10.8) Red Blood Count 3.05 M/UL (4.20-5.40) L Hemoglobin 9.7 G/DL (12.0-16.0) L Hematocrit 28.2 % (37.0-47.0) L Mean Corpuscular Volume 92 FL (80-99) Mean Corpuscular Hemoglobin 31.8 PG (27.0-31.0) H Mean Corpuscular Hemoglobin Concent 34.4 G/DL (32.0-36.0) Red Cell Distribution Width 13.8 % (11.6-14.8) Platelet Count 454 K/UL (150-450) H Mean Platelet Volume 5.5 FL (6.5-10.1) L Neutrophils (%) (Auto) 63.1 % (45.0-75.0) Lymphocytes (%) (Auto) 28.8 % (20.0-45.0) Monocytes (%) (Auto) 7.0 % (1.0-10.0) Eosinophils (%) (Auto) 0.5 % (0.0-3.0) Basophils (%) (Auto) 0.7 % (0.0-2.0) Tanesha Santoro MD January 15, 2020 17:40
[2020-01-15 20:00] VITALS: BP 138/67
--- NOTE | 2020-01-15 20:41 | Infectious Diseases Prog Note ---
Assessment/Plan Problems: (1) Leukocytosis Assessment & Plan: with recurrent fever while on aztreonam , withn no evidence of new infection and negative panculture and CT image for any source of infection , suspect bone marrow pathology VS Thrombophlebitis . repeated Blood culture x 2 is negative , urine culture showed no growth , CXR no acute or new infiltrates or effusion , her Harris catheter was changed on January 08. will continue zosyn and zyvox for 7 days course of treatment for thrombophlebitis , indium scan is negative for active focus of infection (2) Catheter-associated urinary tract infection Assessment & Plan: with PROTEUS MIRABILIS , now on zosyn for 7 days , repeated urine culture showed no growth and her Harris catheter was changed (3) Sepsis Assessment & Plan: with fever and leukocytosis , source ? repeated blood cultures 2 is NTD , CXR showed no new infiltration or effusion, and urine culture showed no growth, ct abd/pelvis and chest is negative for infectious source . indium scan no occult focus of infection . (4) COVID-19 virus infection Assessment & Plan: off enhanced droplet isolation, S/P hydroxychloroquin with zinc and vitamin C for five days total.repeated PCR test times two so far is negative. 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 in both arms, continue full anticoagulation as per primary , high risk for thrombosis due to recent COVID 19 infection. continue antibiotics for 7 days total Subjective ROS Limited/Unobtainable: Yes Allergies: Coded Allergies: MEMANTINE (Unverified Allergy, Unknown, 12/15/19) SERTRALINE (Unverified Allergy, Unknown, 12/15/19) Subjective she was lying in bed , awake and responsive, no fever today, or cough and no phlegm or SOB, responsive but confused , no diarrhea so far , urine is clear and Harris catheter was changed Objective Vital Signs Last 24 Hour Vital Signs Date Time Temp Pulse Resp B/P (MAP) Pulse Ox O2 Delivery O2 Flow Rate FiO2 01/15/20 20:00 98.2 70 20 138/67 (90) 97 01/15/20 16:00 98.2 70 20 119/71 (87) 97 01/15/20 14:00 127/59 01/15/20 12:00 98.1 69 20 127/59 (81) 97 01/15/20 09:00 Room Air 01/15/20 08:00 98.6 64 18 132/68 (89) 96 01/15/20 06:12 120/69 01/15/20 04:00 97.8 73 20 120/69 (86) 95 01/15/20 00:00 98.0 78 20 129/74 (92) 95 01/14/20 21:19 118/62 01/14/20 21:00 Room Air Height (Feet): 5 Height (Inches): 0.00 Weight (Pounds): 153 General Appearance: WD/WN, no acute distress HEENT: normocephalic, atraumatic, anicteric, mucous membranes moist, PERRL Respiratory/Chest: chest wall non-tender, lungs clear, normal breath sounds, no respiratory distress, no accessory muscle use Cardiovascular: normal peripheral pulses, normal rate, regular rhythm, no gallop/murmur, no JVD Abdomen: normal bowel sounds, soft, non tender, no organomegaly, non distended , no mass, no scars Genitourinary: normal external genitalia Extremities: no cyanosis, no clubbing Skin: no rash, no lesions 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, alert, responsive Lymphatic: no neck adenopathy, no groin adenopathy Musculoskeletal: normal muscle bulk, no effusion Laboratory Tests Test 01/15/20 09:40 White Blood Count 8.9 K/UL (4.8-10.8) Red Blood Count 3.05 M/UL (4.20-5.40) L Hemoglobin 9.7 G/DL (12.0-16.0) L Hematocrit 28.2 % (37.0-47.0) L Mean Corpuscular Volume 92 FL (80-99) Mean Corpuscular Hemoglobin 31.8 PG (27.0-31.0) H Mean Corpuscular Hemoglobin Concent 34.4 G/DL (32.0-36.0) Red Cell Distribution Width 13.8 % (11.6-14.8) Platelet Count 454 K/UL (150-450) H Mean Platelet Volume 5.5 FL (6.5-10.1) L Neutrophils (%) (Auto) 63.1 % (45.0-75.0) Lymphocytes (%) (Auto) 28.8 % (20.0-45.0) Monocytes (%) (Auto) 7.0 % (1.0-10.0) Eosinophils (%) (Auto) 0.5 % (0.0-3.0) Basophils (%) (Auto) 0.7 % (0.0-2.0) Current Medications Medications (Trade) Dose Ordered Sig/Ovi Route PRN Reason Start Time Stop Time Status Last Admin Dose Admin Acetaminophen (Tylenol) 650 mg Q4H PRN NG Temp >100.5 01/05/20 12:16 02/04/20 12:15 01/09/20 08:45 Aspirin (ASA) 81 mg DAILY NG 01/06/20 09:00 02/02/20 08:59 01/15/20 08:47 Atorvastatin Calcium (Lipitor) 20 mg BEDTIME NG 01/05/20 21:00 03/18/20 20:59 01/14/20 21:19 Captopril (Capoten) 6.25 mg EVERY 8 HOURS NG 01/05/20 14:00 01/24/20 20:59 01/15/20 14:00 Enoxaparin Sodium (Lovenox) 70 mg EVERY 12 HOURS SUBQ 01/11/20 21:00 04/10/20 20:59 01/15/20 08:51 Folic Acid (Folate) 2 mg DAILY NG 01/06/20 09:00 01/29/20 11:59 01/15/20 08:48 Lansoprazole (Prevacid) 30 mg BID NG 01/05/20 18:00 01/28/20 17:59 01/15/20 18:13 Linezolid 300 ml @ 300 mls/hr Q12H IVPB 01/09/20 18:00 01/18/20 17:59 01/15/20 18:13 Piperacillin Sod/ Tazobactam Sod 3.375 gm/Sodium Chloride 110 ml @ 27.5 mls/hr EVERY 8 HOURS IVPB 01/09/20 14:00 01/18/20 13:59 01/15/20 14:00 Valproic Acid (Depakene) 500 mg EVERY 12 HOURS NG 01/05/20 21:00 01/17/20 23:14 01/15/20 08:48 Sukhjinder Howell M.D. January 15, 2020 20:40
[2020-01-15] MEDS: Atorvastatin 20mg tab NG SCH (20:42)
[2020-01-16] VITALS: BP 120/57
[2020-01-16 04:00] VITALS: BP 127/67
[2020-01-16] MEDS: Piperacillin/Tazobactam 3.375 GM in NS 110 ML IVPB SCH ×3 (06:03→21:20)
[2020-01-16] MEDS: Captopril 12.5mg tab NG SCH ×3 (06:04→21:04)
--- NOTE | 2020-01-16 07:34 | General Progress Note ---
Assessment/Plan Status: stable, progressing Assessment/Plan: 1. The patient is an 89-year-old female with current medical problem as COVID positive pneumonia resolving. 2. Diabetes. 3. Anemia. 4. Abnormal liver function tests. 5. Sepsis. 6. Dysphagia. 7. Non-ST elevation myocardial infarction. 8. Dementia. 9. Encephalopathy. 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 s/p GT placement GTF GT care monitor for residuals Subjective ROS Limited/Unobtainable: No Allergies: Coded Allergies: MEMANTINE (Unverified Allergy, Unknown, 12/15/19) SERTRALINE (Unverified Allergy, Unknown, 12/15/19) Objective Last 24 Hour Vital Signs Date Time Temp Pulse Resp B/P (MAP) Pulse Ox O2 Delivery O2 Flow Rate FiO2 01/16/20 06:04 125/61 01/16/20 04:00 98.1 76 20 127/67 (87) 97 01/16/20 00:00 98.4 72 20 120/57 (78) 96 01/15/20 21:30 126/67 01/15/20 21:00 Room Air 01/15/20 20:00 98.2 70 20 138/67 (90) 97 01/15/20 16:00 98.2 70 20 119/71 (87) 97 01/15/20 14:00 127/59 01/15/20 12:00 98.1 69 20 127/59 (81) 97 01/15/20 09:00 Room Air 01/15/20 08:00 98.6 64 18 132/68 (89) 96 Intake and Output 01/15/20 01/16/20 19:00 07:00 Intake Total 1020.0 ml 1360.0 ml Output Total 900 ml Balance 1020.0 ml 460.0 ml Intake Free Water 200 ml 100 ml IV Total 220.0 ml 710.0 ml Tube Feeding 600 ml 550 ml Output Urine Total 900 ml # Bowel Movements 1 Laboratory Tests 01/15/20 09:40: White Blood Count 8.9, Red Blood Count 3.05L, Hemoglobin 9.7L, Hematocrit 28.2L , Mean Corpuscular Volume 92, Mean Corpuscular Hemoglobin 31.8H, Mean Corpuscular Hemoglobin Concent 34.4, Red Cell Distribution Width 13.8, Platelet Count 454H, Mean Platelet Volume 5.5L, Neutrophils (%) (Auto) 63.1, Lymphocytes (%) (Auto) 28.8, Monocytes (%) (Auto) 7.0, Eosinophils (%) (Auto) 0.5, Basophils (%) (Auto) 0.7 Height (Feet): 5 Height (Inches): 0.00 Weight (Pounds): 154 General Appearance: no apparent distress EENT: normal ENT inspection Neck: supple Cardiovascular: normal rate Respiratory/Chest: decreased breath sounds Abdomen: normal bowel sounds, non tender, soft Extremities: non-tender Sven Villalta MD January 16, 2020 07:34
[2020-01-16 08:00] VITALS: BP 136/72
[2020-01-16] MEDS: Aspirin Baby 81mg NG SCH (08:16)
[2020-01-16] MEDS: Valproic Acid 250mg/5ml Liquid NG SCH ×2 (08:16→21:04)
[2020-01-16] MEDS: Enoxaparin 80mg Inj SUBQ SCH ×2 (08:18→21:17)
--- NOTE | 2020-01-16 09:19 | Pulmonology Progress Note ---
Marge Gutierrez FOREST FIRE PREVENTION MANAGER 01/16/20 0919: Subjective ROS Limited/Unobtainable: No Interval Events: Allergies: Coded Allergies: MEMANTINE (Unverified Allergy, Unknown, 12/15/19) SERTRALINE (Unverified Allergy, Unknown, 12/15/19) Subjective leukocytosis resolved, no fevers since 01/09 [place] SARS- CoV -2 by PCR 12/21 , 12/24 , 01/09, 01/10 not detected s/p EGF and PEG 01/04 tolerates TF CXR 01/06 no definite acute process Venous Duplex + DVT cephalic vein BUE, started on Lovenox more awake, but poorly responsive Objective Last 24 Hour Vital Signs Date Time Temp Pulse Resp B/P (MAP) Pulse Ox O2 Delivery O2 Flow Rate FiO2 01/16/20 08:00 97.0 88 19 136/72 (93) 93 01/16/20 06:04 125/61 01/16/20 04:00 98.1 76 20 127/67 (87) 97 01/16/20 00:00 98.4 72 20 120/57 (78) 96 01/15/20 21:30 126/67 01/15/20 21:00 Room Air 01/15/20 20:00 98.2 70 20 138/67 (90) 97 01/15/20 16:00 98.2 70 20 119/71 (87) 97 01/15/20 14:00 127/59 01/15/20 12:00 98.1 69 20 127/59 (81) 97 Intake and Output 01/15/20 01/16/20 19:00 07:00 Intake Total 1020.0 ml 1360.0 ml Output Total 900 ml Balance 1020.0 ml 460.0 ml Intake Free Water 200 ml 100 ml IV Total 220.0 ml 710.0 ml Tube Feeding 600 ml 550 ml Output Urine Total 900 ml # Bowel Movements 1 Objective General Appearance: WD/WN, in no acute distress elderly AA female , awake, HEENT: normocephalic, atraumatic, anicteric, mucous membranes moist, PERRL, Respiratory/Chest: BS overall clear Cardiovascular: normal peripheral pulses, normal rate, Abdomen: normal bowel sounds, soft, non tender, , G tube with TF infusing, site clean, abd binder on Genitourinary: normal external genitalia Extremities: no cyanosis, no clubbing, edema BUE Skin: no rash, R elbow abrasion, no ulcers 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, awake, but poorly responsive Lymphatic: no neck adenopathy, no groin adenopathy Musculoskeletal: muscle atrophy, no effusion Laboratory Tests 01/15/20 09:40: White Blood Count 8.9, Red Blood Count 3.05L, Hemoglobin 9.7L, Hematocrit 28.2L , Mean Corpuscular Volume 92, Mean Corpuscular Hemoglobin 31.8H, Mean Corpuscular Hemoglobin Concent 34.4, Red Cell Distribution Width 13.8, Platelet Count 454H, Mean Platelet Volume 5.5L, Neutrophils (%) (Auto) 63.1, Lymphocytes (%) (Auto) 28.8, Monocytes (%) (Auto) 7.0, Eosinophils (%) (Auto) 0.5, Basophils (%) (Auto) 0.7 Current Medications Medications (Trade) Dose Ordered Sig/Ovi Route PRN Reason Start Time Stop Time Status Last Admin Dose Admin Acetaminophen (Tylenol) 650 mg Q4H PRN NG Temp >100.5 01/05/20 12:16 02/04/20 12:15 01/09/20 08:45 Aspirin (ASA) 81 mg DAILY NG 01/06/20 09:00 02/02/20 08:59 01/16/20 08:16 Atorvastatin Calcium (Lipitor) 20 mg BEDTIME NG 01/05/20 21:00 03/18/20 20:59 01/15/20 20:42 Captopril (Capoten) 6.25 mg EVERY 8 HOURS NG 01/05/20 14:00 01/24/20 20:59 01/16/20 06:04 Enoxaparin Sodium (Lovenox) 70 mg EVERY 12 HOURS SUBQ 01/11/20 21:00 04/10/20 20:59 01/16/20 08:18 Folic Acid (Folate) 2 mg DAILY NG 01/06/20 09:00 01/29/20 11:59 01/16/20 08:16 Lansoprazole (Prevacid) 30 mg BID NG 01/05/20 18:00 01/28/20 17:59 01/16/20 08:16 Linezolid 300 ml @ 300 mls/hr Q12H IVPB 01/09/20 18:00 01/18/20 17:59 01/16/20 05:00 Piperacillin Sod/ Tazobactam Sod 3.375 gm/Sodium Chloride 110 ml @ 27.5 mls/hr EVERY 8 HOURS IVPB 01/09/20 14:00 01/18/20 13:59 01/16/20 06:03 Valproic Acid (Depakene) 500 mg EVERY 12 HOURS NG 01/05/20 21:00 01/17/20 23:14 01/16/20 08:16 Assessment/Plan Assessment/Plan PROBLEMS Confirmed COVID-19 virus infection Viral pneumonia Electrolyte imbalance NSTEMI (non-ST elevated myocardial infarction) Encephalopathy Dehydration ROSARIO (acute kidney injury) Staphylococcus epidermidis bacteremia Anemia Persistent leukocytosis with intermittent fevers ASSESSMENT Probably sepsis ( POA, with leukocytosis, lactic acidosis, evidence of infection ) Confirmed CoVID 19 infection Acute hypoxemic respiratory failure-resolved S epidermis bacteremia New leukocytosis with fevers, Proteus UTI Acute renal failure - RESOLVED Severe dehydration - IMPROVED Hypernatremia indicative of free water depletion Hypercalcemia likely due to dehydration Elevated hemoglobin likely secondary to hemoconcentration, now anemia Elevated troponin/NSTEMI Poor p.o. intake / failure to thrive Dementia Hypertension Generalized anxiety disorder Dysphagia , s/p EGD and PEG 01/04 Anemia of chronic disease Folate deficiency DVT BUE cephalic vein PLAN OF CARE * COVID-19 isolation status, confirmed 12/14, * repeat COVID 12/21- and 12/24 NGT -> off isolation now * COVID 19 NGT 01/09 and 01/10 * on [facility] floor * monitor oxygenation closely, on RA or only on 1-2L nasal cannula * CXR prn only if worsening symptoms, CXR 12/16 clear lungs * fup CXR 12/25 done , given mild leukocytosis -no acute findings * worsening leukocytosis, fevers, recultured 12/31, fup with cx: UA + pyuria, UCX -GNB ; BCX 01/01 -NGTD * CXR 01/01 No focal consolidative process or pleural effusions, not likely PNA, leuk probably due to UTI * repeat CXR ( fevers, cough) * also check stool C dif * Vanco per ID, needs 2 wks for Staph epidermidis ( repeated BCX 4/21 still + with Staph epidermidis 1/2) -completed ; * repeated BCX 01/01 NGT * discussed with ID Dr Howell - Zosyn added for GN coverage 01/01, F/c changed 12/29 * UCX + Proteus, Zosyn changed to Aztreonam per ID x 10 days * stool C dif 01/03 NGT, * CXR 01/06 no acute process * unclear cause of persistent leukocytosis and intermittent fevers- * abx escalated by ID: aztreonam changed to Zosyn adn Zyvox, pt pancultured, F/ c was dc * UCX 01/08 NGTD, BCX 01/08 NGTD * CT C/ A/P done 01/09, results noted ; no findings to account for persistent leukocytosis and intermittent fevers * skin thickening and infiltration of the subcutaneous fat in the right groin/ upper thigh region, noted on CT, no clinical evidence of cellulitis . No abscess * CRP 01/05 01/10 ( down from last 16.1) * Completed 5 days of Plaquenil * s/p IVF , nephro on board * Monitor electrolytes and renal parameters * Echo 12/26 with pEF 65% and moderate left ventricular hypertrophy, no evidence of vegetation * on a/PLT therapy with ASA, statin , [facility] for afterload reduction * prior : NPO, NGTF's, NETWORK SYSTEMS ANALYST eval , strict aspiration precautions, unable to participate in swallow eval * Dr Toledo spoke with deidra Milton 12/27 ([phone]) and discussed further goals of care, she will need to discuss with other family members and will get back to us: either PEG placement or palliative care * awaiting for family decision, daughter decided to continue Full code and wants G tube * GI on board now, * s/p EGD and PEG 01/04, * asp precautions, GTF as per GI recs, tolerates * Full Code per prior documented ECP notes * Cont Depakote 500 mg bid from SNF * Anemia w/up c/w ACD and folate deficiency, started on folate replacement * stool OB negative * monitor HH with goal to keep Hgb above 7 * venous Duplex BUE r/o DVT @ to bilateral edema * wound care for R elbow abrasion * venous Duplex + BUE cephalic best thrombus, given + COVID and hypercoagulability state, started on Lovenox, plan a/c for 3 months, transition to Eliquis upon dc * BM biopsy was cancelled given resolved leukocytosis and fevers * heme eval if able to get -no further needs * attempted 01/12 to cancel NM WBC scan, however, the first part was already done , completed yesterday 2 nd part, * WBC showed only a small faint area of abnormal uptake is noted in the anterior abdominal wall just left of midline likely corresponding with mild soft tissue induration at the entry site of the PEG tube. * fup with SPEP/noted, UPEP - pending, retic -2.9 , peripheral smear pending * dc plan discussed with ID Notes Reviewed: cardio, renal, ID Discussed with: nurses, case discussed and evaluated by supervising physician Boby Toledo MD 01/16/20 1527: Subjective Allergies: Coded Allergies: MEMANTINE (Unverified Allergy, Unknown, 12/15/19) SERTRALINE (Unverified Allergy, Unknown, 12/15/19) Assessment/Plan Assessment/Plan Patient seen and examined with FOREST FIRE PREVENTION MANAGER. Agree with above A&P as it reflects our joint deliberations. Dispo planning Marge Gutierrez NP January 16, 2020 09:19 Boby Toledo MD January 16, 2020 15:27
--- NOTE | 2020-01-16 11:32 | Nephrology Progress Note ---
Assessment/Plan Problem List: (1) ROSARIO (acute kidney injury) (2) Dehydration (3) Electrolyte imbalance (4) NSTEMI (non-ST elevated myocardial infarction) (5) COVID-19 virus infection (6) Anemia Assessment Acute renal failure Severe dehydration Hypernatremia indicative of free water depletion Hypercalcemia likely due to dehydration Elevated hemoglobin likely secondary to hemoconcentration Elevated troponin Poor p.o. intake / failure to thrive Dementia Hypertension Exposure to COVID-19 Plan Covid19 test positive Received PEG today January 04 WBCs carlene over 15,000, but now is WNL Stable from renal standpoint to view Continue per ID advice Previously: Discontinue potassium chloride p.o. IV Protonix to Prevacid via NG tube At the folic acid to medication Watch declining hemoglobin Aspirin 2D echocardiogram, results still pending Nitropaste Avoid nephrotoxic's Monitor renal parameters Monitor hemoglobin hematocrit Avoid mind altering medication in view of severe lethargy Per orders Subjective ROS Limited/Unobtainable: No Constitutional: Reports: malaise, weakness Objective Objective Last 24 Hour Vital Signs Date Time Temp Pulse Resp B/P (MAP) Pulse Ox O2 Delivery O2 Flow Rate FiO2 01/16/20 09:00 Room Air 01/16/20 08:00 97.0 88 19 136/72 (93) 93 01/16/20 06:04 125/61 01/16/20 04:00 98.1 76 20 127/67 (87) 97 01/16/20 00:00 98.4 72 20 120/57 (78) 96 01/15/20 21:30 126/67 01/15/20 21:00 Room Air 01/15/20 20:00 98.2 70 20 138/67 (90) 97 01/15/20 16:00 98.2 70 20 119/71 (87) 97 01/15/20 14:00 127/59 01/15/20 12:00 98.1 69 20 127/59 (81) 97 Intake and Output 01/15/20 01/16/20 19:00 07:00 Intake Total 1020.0 ml 1410.0 ml Output Total 900 ml Balance 1020.0 ml 510.0 ml Intake Free Water 200 ml 100 ml IV Total 220.0 ml 710.0 ml Tube Feeding 600 ml 600 ml Output Urine Total 900 ml # Bowel Movements 1 No labs drawn today Height (Feet): 5 Height (Inches): 0.00 Weight (Pounds): 154 General Appearance: no apparent distress Cardiovascular: tachycardia Respiratory/Chest: decreased breath sounds Abdomen: soft Objective No change Robert Foreman MD January 16, 2020 11:32
[2020-01-16 12:00] VITALS: BP 139/60
--- NOTE | 2020-01-16 12:59 | Surgery Progress Note ---
Surgery Progress Note Subjective Additional Comments AxOx1, asleep but easily arousal, not in distress, tolerating room air, no outward sx of pain. No fevers overnight Objective Last 24 Hour Vital Signs Date Time Temp Pulse Resp B/P (MAP) Pulse Ox O2 Delivery O2 Flow Rate FiO2 01/16/20 12:00 98.1 70 19 139/60 (86) 100 01/16/20 09:00 Room Air 01/16/20 08:00 97.0 88 19 136/72 (93) 93 01/16/20 06:04 125/61 01/16/20 04:00 98.1 76 20 127/67 (87) 97 01/16/20 00:00 98.4 72 20 120/57 (78) 96 01/15/20 21:30 126/67 01/15/20 21:00 Room Air 01/15/20 20:00 98.2 70 20 138/67 (90) 97 01/15/20 16:00 98.2 70 20 119/71 (87) 97 01/15/20 14:00 127/59 I&O Intake and Output 01/15/20 01/16/20 19:00 07:00 Intake Total 1020.0 ml 1410.0 ml Output Total 900 ml Balance 1020.0 ml 510.0 ml Intake Free Water 200 ml 100 ml IV Total 220.0 ml 710.0 ml Tube Feeding 600 ml 600 ml Output Urine Total 900 ml # Bowel Movements 1 Dressing: saturated Wound: other Cardiovascular: RSR Respiratory: decreased breath sounds Abdomen: soft, present bowel sounds Extremities: no edema, no tenderness, no cyanosis Plan Problems: (1) Leukocytosis Assessment & Plan: Acute leukocytosis. Microbiology identified staph E. On antibiotics per infectious disease. WBC trending down. Complete examination identified no external source of potential staph infection in the blood bacteremia DTI noted Continue antibiotics as per infectious disease Trend labs persistent wbc micro reviewed as above worsening ID input appreciated We will follow with recommendations (2) Sepsis Assessment & Plan: negative x 2 CO VID Pneumonia improving Recent acute leukocytosis trending down Course of hydroxy completed stable Improving Continue current care plan Abnormal LFTs identified Hold on abdominal ultrasound for now nutritional optimization turn q2h off load pressures cont tube feeds at goal fever improving wbc improving DAILY ESTIMATED NEEDS: Needs based on ROSARIO, sepsis, Cardiac/ 52kg abw 25-30 kcals/kg 0579-4452 total kcals 1-2 g protein/kg 52-104 g total protein 25-30 mL/kg 9625-6988 total fluid mLs NUTRITION DIAGNOSIS: Swallowing difficulty R/T dysphagia, AMS, lethargy as evidenced by NPO at this time, AIRPLANE RENTAL CLERK eval pending, FTT dx, s/p PEG placement. CURRENT TF:Jevity 1.2 @ 50ml/hr x 24 hrs ENTERAL NUTRITION RECOMMENDATIONS: Jevity 1.2 @ 50ml/hr x 24 hrs to provide 1200ml, 1440kcal, 66g prot, 968ml free water * Maintain current TF * HOB over 30 degrees * Water flush of 150ml q 8 hrs --- W/ consistently elev BGs, rec Glucerna 1.5 (Glucerna 1.2 is out of stock) @ goal rate of 40ml/hr x 24 hrs to provide 960ml, 1440kcal, 79g prot, 729ml free water. ADDITIONAL RECOMMENDATIONS: * Calibrated bedscale wt for accurate CBW- discrepency wt in EMR noted per SNF record: HT=60", GF=844.4lbs (December 2019) - RECALIBRATE BEDSCALE (BEDSCALE READS "0" ON 01/09) * Monitor lytes, replete as needed * Monitor BGs, need for carb controlled TF (3) Staphylococcus epidermidis bacteremia Assessment & Plan: As above Andi Valera January 16, 2020 12:59
[2020-01-16] MEDS ORDERED: Tubing IV Secondary IV ONE (15:59)
[2020-01-16 16:00] VITALS: BP 136/67
--- NOTE | 2020-01-16 16:42 | Infectious Diseases Prog Note ---
Assessment/Plan Problems: (1) Leukocytosis Assessment & Plan: with recurrent fever while on aztreonam , withn no evidence of new infection and negative panculture and CT image for any source of infection , suspect bone marrow pathology VS Thrombophlebitis . repeated Blood culture x 2 is negative , urine culture showed no growth , CXR no acute or new infiltrates or effusion , her Harris catheter was changed on January 08. will continue zosyn and zyvox for 7 days course of treatment for thrombophlebitis , indium scan is negative for active focus of infection (2) Catheter-associated urinary tract infection Assessment & Plan: with PROTEUS MIRABILIS , now on zosyn for 7 days , repeated urine culture showed no growth and her Harris catheter was changed (3) Sepsis Assessment & Plan: with fever and leukocytosis , source ? repeated blood cultures 2 is NTD , CXR showed no new infiltration or effusion, and urine culture showed no growth, ct abd/pelvis and chest is negative for infectious source . indium scan no occult focus of infection . (4) COVID-19 virus infection Assessment & Plan: off enhanced droplet isolation, S/P hydroxychloroquin with zinc and vitamin C for five days total.repeated PCR test times two so far is negative. 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 in both arms, continue full anticoagulation as per primary , high risk for thrombosis due to recent COVID 19 infection. continue antibiotics for 7 days total Subjective Allergies: Coded Allergies: MEMANTINE (Unverified Allergy, Unknown, 12/15/19) SERTRALINE (Unverified Allergy, Unknown, 12/15/19) Subjective she was lying in bed , awake and responsive, no fever today, or cough and no phlegm or SOB, responsive but confused , no diarrhea so far , urine is clear and Harris catheter was changed Objective Vital Signs Last 24 Hour Vital Signs Date Time Temp Pulse Resp B/P (MAP) Pulse Ox O2 Delivery O2 Flow Rate FiO2 01/16/20 16:00 98.4 72 19 136/67 (90) 100 01/16/20 14:33 139/60 01/16/20 12:00 98.1 70 19 139/60 (86) 100 01/16/20 09:00 Room Air 01/16/20 08:00 97.0 88 19 136/72 (93) 93 01/16/20 06:04 125/61 01/16/20 04:00 98.1 76 20 127/67 (87) 97 01/16/20 00:00 98.4 72 20 120/57 (78) 96 01/15/20 21:30 126/67 01/15/20 21:00 Room Air 01/15/20 20:00 98.2 70 20 138/67 (90) 97 Height (Feet): 5 Height (Inches): 0.00 Weight (Pounds): 154 Current Medications Medications (Trade) Dose Ordered Sig/Ovi Route PRN Reason Start Time Stop Time Status Last Admin Dose Admin Acetaminophen (Tylenol) 650 mg Q4H PRN NG Temp >100.5 01/05/20 12:16 02/04/20 12:15 01/09/20 08:45 Aspirin (ASA) 81 mg DAILY NG 01/06/20 09:00 02/02/20 08:59 01/16/20 08:16 Atorvastatin Calcium (Lipitor) 20 mg BEDTIME NG 01/05/20 21:00 03/18/20 20:59 01/15/20 20:42 Captopril (Capoten) 6.25 mg EVERY 8 HOURS NG 01/05/20 14:00 01/24/20 20:59 01/16/20 14:33 Enoxaparin Sodium (Lovenox) 70 mg EVERY 12 HOURS SUBQ 01/11/20 21:00 04/10/20 20:59 01/16/20 08:18 Folic Acid (Folate) 2 mg DAILY NG 01/06/20 09:00 01/29/20 11:59 01/16/20 08:16 Lansoprazole (Prevacid) 30 mg BID NG 01/05/20 18:00 01/28/20 17:59 01/16/20 08:16 Linezolid 300 ml @ 300 mls/hr Q12H IVPB 01/09/20 18:00 01/18/20 17:59 01/16/20 05:00 Piperacillin Sod/ Tazobactam Sod 3.375 gm/Sodium Chloride 110 ml @ 27.5 mls/hr EVERY 8 HOURS IVPB 01/09/20 14:00 01/18/20 13:59 01/16/20 14:33 Valproic Acid (Depakene) 500 mg EVERY 12 HOURS NG 01/05/20 21:00 01/17/20 23:14 01/16/20 08:16 Sukhjinder Howell M.D. January 16, 2020 16:42
[2020-01-16 20:00] VITALS: BP 135/67
[2020-01-16] MEDS: Atorvastatin 20mg tab NG SCH (21:04)
[2020-01-17] VITALS: BP 129/68
[2020-01-17 04:00] VITALS: BP 130/66
[2020-01-17] MEDS: Captopril 12.5mg tab NG SCH ×3 (05:18→20:43)
[2020-01-17] MEDS: Piperacillin/Tazobactam 3.375 GM in NS 110 ML IVPB SCH ×3 (05:31→20:44)
[2020-01-17 07:10] LABS: BASOPHILS % (AUTO) 0.8 % (0.0-2.0); EOSINOPHILS % (AUTO) 0.4 % (0.0-3.0); HEMATOCRIT 29.2 % (37.0-47.0); HEMOGLOBIN 10.1 G/DL (12.0-16.0); LYMPHOCYTES % (AUTO) 26.9 % (20.0-45.0); MEAN CORPUSCULAR VOLUME 94 FL (80-99); MONOCYTES % (AUTO) 8.8 % (1.0-10.0); NEUTROPHILS % (AUTO) 63.1 % (45.0-75.0); PLATELET COUNT 349 K/UL (150-450); RED BLOOD COUNT 3.12 M/UL (4.20-5.40); RED CELL DISTRIBUTION WIDTH 14.6 % (11.6-14.8); WHITE BLOOD COUNT 8.2 K/UL (4.8-10.8)
[2020-01-17 08:00] VITALS: BP 130/70
[2020-01-17 08:18] LABS: ANION GAP 5 mmol/L (5-15); BLOOD UREA NITROGEN 10 mg/dL (7-18); CALCIUM 8.7 MG/DL (8.5-10.1); CARBON DIOXIDE 30 MMOL/L (21-32); CHLORIDE 106 MMOL/L (98-107); CREATININE 0.6 MG/DL (0.55-1.30); POTASSIUM 3.7 MMOL/L (3.5-5.1); SODIUM 141 MMOL/L (136-145)
[2020-01-17] MEDS: Valproic Acid 250mg/5ml Liquid NG SCH ×2 (08:41→20:42)
[2020-01-17] MEDS: Aspirin Baby 81mg NG SCH (08:41)
[2020-01-17] MEDS: Enoxaparin 80mg Inj SUBQ SCH ×2 (08:42→20:43)
--- NOTE | 2020-01-17 09:18 | Pulmonology Progress Note ---
Marge Gutierrez WATER METER INSTALLER 01/17/20 0918: Subjective ROS Limited/Unobtainable: No Interval Events: Allergies: Coded Allergies: MEMANTINE (Unverified Allergy, Unknown, 12/15/19) SERTRALINE (Unverified Allergy, Unknown, 12/15/19) Subjective leukocytosis resolved, no fevers since 01/09 [place] SARS- CoV -2 by PCR 12/21 , 12/24 , 01/09, 01/10 not detected s/p EGF and PEG 01/04 tolerates TF CXR 01/06 no definite acute process Venous Duplex + DVT cephalic vein BUE, started on Lovenox more awake, but poorly responsive Objective Last 24 Hour Vital Signs Date Time Temp Pulse Resp B/P (MAP) Pulse Ox O2 Delivery O2 Flow Rate FiO2 01/17/20 08:00 98.6 77 20 130/70 (90) 98 01/17/20 05:18 130/66 01/17/20 04:00 98.5 72 20 130/66 (87) 97 01/17/20 00:00 98.1 74 20 129/68 (88) 97 01/16/20 21:04 135/67 01/16/20 21:00 Room Air 01/16/20 20:00 98.8 73 20 135/67 (89) 97 01/16/20 16:00 98.4 72 19 136/67 (90) 100 01/16/20 14:33 139/60 01/16/20 12:00 98.1 70 19 139/60 (86) 100 Intake and Output 01/16/20 01/17/20 19:00 07:00 Intake Total 1137.5 ml 1110.0 ml Balance 1137.5 ml 1110.0 ml Intake Free Water 100 ml 200 ml IV Total 437.5 ml 410.0 ml Tube Feeding 600 ml 500 ml # Bowel Movements 1 Objective General Appearance: WD/WN, in no acute distress elderly AA female , awake, HEENT: normocephalic, atraumatic, anicteric, mucous membranes moist, PERRL, Respiratory/Chest: BS overall clear Cardiovascular: normal peripheral pulses, normal rate, Abdomen: normal bowel sounds, soft, non tender, , G tube with TF infusing, site clean, abd binder on Genitourinary: normal external genitalia Extremities: no cyanosis, no clubbing, edema BUE Skin: no rash, R elbow abrasion, no ulcers 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: associate editor II-XII grossly normal, awake, but poorly responsive Lymphatic: no neck adenopathy, no groin adenopathy Musculoskeletal: muscle atrophy, no effusion Laboratory Tests 01/17/20 06:25: White Blood Count 8.2, Red Blood Count 3.12L, Hemoglobin 10.1L, Hematocrit 29.2L , Mean Corpuscular Volume 94, Mean Corpuscular Hemoglobin 32.3H, Mean Corpuscular Hemoglobin Concent 34.4, Red Cell Distribution Width 14.6, Platelet Count 349, Mean Platelet Volume 5.5L, Neutrophils (%) (Auto) 63.1, Lymphocytes ( %) (Auto) 26.9, Monocytes (%) (Auto) 8.8, Eosinophils (%) (Auto) 0.4, Basophils (%) (Auto) 0.8, Sodium Level 141, Potassium Level 3.7, Chloride Level 106, Carbon Dioxide Level 30, Anion Gap 5, Blood Urea Nitrogen 10, Creatinine 0.6, Estimat Glomerular Filtration Rate > 60, Glucose Level 154H, Calcium Level 8.7 Current Medications Medications (Trade) Dose Ordered Sig/Ovi Route PRN Reason Start Time Stop Time Status Last Admin Dose Admin Acetaminophen (Tylenol) 650 mg Q4H PRN NG Temp >100.5 01/05/20 12:16 02/04/20 12:15 01/09/20 08:45 Aspirin (ASA) 81 mg DAILY NG 01/06/20 09:00 02/02/20 08:59 01/17/20 08:41 Atorvastatin Calcium (Lipitor) 20 mg BEDTIME NG 01/05/20 21:00 03/18/20 20:59 01/16/20 21:04 Captopril (Capoten) 6.25 mg EVERY 8 HOURS NG 01/05/20 14:00 01/24/20 20:59 01/17/20 05:18 Enoxaparin Sodium (Lovenox) 70 mg EVERY 12 HOURS SUBQ 01/11/20 21:00 04/10/20 20:59 01/17/20 08:42 Folic Acid (Folate) 2 mg DAILY NG 01/06/20 09:00 01/29/20 11:59 01/17/20 08:41 Lansoprazole (Prevacid) 30 mg BID NG 01/05/20 18:00 01/28/20 17:59 01/17/20 08:41 Linezolid 300 ml @ 300 mls/hr Q12H IVPB 01/09/20 18:00 01/18/20 17:59 01/17/20 04:32 Piperacillin Sod/ Tazobactam Sod 3.375 gm/Sodium Chloride 110 ml @ 27.5 mls/hr EVERY 8 HOURS IVPB 01/09/20 14:00 01/18/20 13:59 01/17/20 05:31 Valproic Acid (Depakene) 500 mg EVERY 12 HOURS NG 01/05/20 21:00 01/17/20 23:14 01/17/20 08:41 Assessment/Plan Assessment/Plan PROBLEMS Confirmed COVID-19 virus infection Viral pneumonia Electrolyte imbalance NSTEMI (non-ST elevated myocardial infarction) Encephalopathy Dehydration ROSARIO (acute kidney injury) Staphylococcus epidermidis bacteremia Anemia Persistent leukocytosis with intermittent fevers ASSESSMENT Probably sepsis ( POA, with leukocytosis, lactic acidosis, evidence of infection ) Confirmed CoVID 19 infection Acute hypoxemic respiratory failure-resolved S epidermis bacteremia New leukocytosis with fevers, Proteus UTI Acute renal failure - RESOLVED Severe dehydration - IMPROVED Hypernatremia indicative of free water depletion Hypercalcemia likely due to dehydration Elevated hemoglobin likely secondary to hemoconcentration, now anemia Elevated troponin/NSTEMI Poor p.o. intake / failure to thrive Dementia Hypertension Generalized anxiety disorder Dysphagia , s/p EGD and PEG 01/04 Anemia of chronic disease Folate deficiency DVT BUE cephalic vein PLAN OF CARE * COVID-19 isolation status, confirmed 12/14, * repeat COVID 12/21- and 12/24 NGT -> off isolation now * COVID 19 NGT 01/09 and 01/10 * on [facility] floor * monitor oxygenation closely, on RA or only on 1-2L nasal cannula * CXR prn only if worsening symptoms, CXR 12/16 clear lungs * fup CXR 12/25 done , given mild leukocytosis -no acute findings * worsening leukocytosis, fevers, recultured 12/31, fup with cx: UA + pyuria, UCX -GNB ; BCX 01/01 -NGTD * CXR 01/01 No focal consolidative process or pleural effusions, not likely PNA, leuk probably due to UTI * repeat CXR ( fevers, cough) * also check stool C dif * Vanco per ID, needs 2 wks for Staph epidermidis ( repeated BCX 12/20 still + with Staph epidermidis 09/02) -completed ; * repeated BCX 01/01 NGT * discussed with ID Dr Howell - Zosyn added for GN coverage 01/01, F/c changed 12/29 * UCX + Proteus, Zosyn changed to Aztreonam per ID x 10 days * stool C dif 01/03 NGT, * CXR 01/06 no acute process * unclear cause of persistent leukocytosis and intermittent fevers- * abx escalated by ID: aztreonam changed to Zosyn adn Zyvox, pt pancultured, * F/c was dc * completing abx 01/17 * UCX 01/08 NGTD, BCX 01/08 NGTD * CT C/ A/P done 01/09, results noted ; no findings to account for persistent leukocytosis and intermittent fevers * skin thickening and infiltration of the subcutaneous fat in the right groin/ upper thigh region, noted on CT, no clinical evidence of cellulitis . No abscess * CRP 01/05 01/10 ( down from last 16.1) * Completed 5 days of Plaquenil * s/p IVF , nephro on board * Monitor electrolytes and renal parameters * Echo 12/26 with pEF 65% and moderate left ventricular hypertrophy, no evidence of vegetation * on a/PLT therapy with ASA, statin , [facility] for afterload reduction * prior : NPO, NGTF's, DIGITAL PRODUCT SPECIALIST eval , strict aspiration precautions, unable to participate in swallow eval * Dr Toledo spoke with daughter Dayna Milton 12/27 ([phone]) and discussed further goals of care, she will need to discuss with other family members and will get back to us: either PEG placement or palliative care * awaiting for family decision, daughter decided to continue Full code and wants G tube * GI on board now, * s/p EGD and PEG 01/04, * asp precautions, GTF as per GI recs, tolerates * Cont Depakote 500 mg bid from SNF * Anemia w/up c/w ACD and folate deficiency, started on folate replacement * stool OB negative * monitor HH with goal to keep Hgb above 7 * venous Duplex BUE r/o DVT @ to bilateral edema * wound care for R elbow abrasion * venous Duplex + BUE cephalic best thrombus, given + COVID and hypercoagulability state, started on Lovenox, plan a/c for 3 months, transition to Eliquis upon dc * BM biopsy was cancelled given resolved leukocytosis and fevers * heme eval if able to get -no further needs * attempted 01/12 to cancel NM WBC scan, however, the first part was already done , completed yesterday 2 nd part, * WBC showed only a small faint area of abnormal uptake is noted in the anterior abdominal wall just left of midline likely corresponding with mild soft tissue induration at the entry site of the PEG tube. * fup with SPEP/noted, UPEP - pending, retic -2.9 , peripheral smear * dc plan , ready for discharge discussed with ID Notes Reviewed: cardio, renal, ID Discussed with: nurses, case discussed and evaluated by supervising physician Rob Robison MD 01/17/20 5831: Subjective Allergies: Coded Allergies: MEMANTINE (Unverified Allergy, Unknown, 12/15/19) SERTRALINE (Unverified Allergy, Unknown, 12/15/19) Assessment/Plan Assessment/Plan Patient seen and examined with WATER METER INSTALLER. Agree with above A&P as it reflects our joint deliberations. Marge Gutierrez WATER METER INSTALLER January 17, 2020 09:18 Rob Robison MD January 17, 2020 16:59
--- NOTE | 2020-01-17 10:33 | General Progress Note ---
Assessment/Plan Status: stable, progressing Assessment/Plan: 1. The patient is an 89-year-old female with current medical problem as COVID positive pneumonia resolving. 2. Diabetes. 3. Anemia. 4. Abnormal liver function tests. 5. Sepsis. 6. Dysphagia. 7. Non-ST elevation myocardial infarction. 8. Dementia. 9. Encephalopathy. 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 s/p GT placement GTF GT care monitor for residuals Subjective ROS Limited/Unobtainable: No Allergies: Coded Allergies: MEMANTINE (Unverified Allergy, Unknown, 12/15/19) SERTRALINE (Unverified Allergy, Unknown, 12/15/19) Objective Last 24 Hour Vital Signs Date Time Temp Pulse Resp B/P (MAP) Pulse Ox O2 Delivery O2 Flow Rate FiO2 01/17/20 09:00 Room Air 01/17/20 08:00 98.6 77 20 130/70 (90) 98 01/17/20 05:18 130/66 01/17/20 04:00 98.5 72 20 130/66 (87) 97 01/17/20 00:00 98.1 74 20 129/68 (88) 97 01/16/20 21:04 135/67 01/16/20 21:00 Room Air 01/16/20 20:00 98.8 73 20 135/67 (89) 97 01/16/20 16:00 98.4 72 19 136/67 (90) 100 01/16/20 14:33 139/60 01/16/20 12:00 98.1 70 19 139/60 (86) 100 Intake and Output 01/16/20 01/17/20 19:00 07:00 Intake Total 1137.5 ml 1110.0 ml Balance 1137.5 ml 1110.0 ml Intake Free Water 100 ml 200 ml IV Total 437.5 ml 410.0 ml Tube Feeding 600 ml 500 ml # Bowel Movements 1 Laboratory Tests 01/17/20 06:25: White Blood Count 8.2, Red Blood Count 3.12L, Hemoglobin 10.1L, Hematocrit 29.2L , Mean Corpuscular Volume 94, Mean Corpuscular Hemoglobin 32.3H, Mean Corpuscular Hemoglobin Concent 34.4, Red Cell Distribution Width 14.6, Platelet Count 349, Mean Platelet Volume 5.5L, Neutrophils (%) (Auto) 63.1, Lymphocytes ( %) (Auto) 26.9, Monocytes (%) (Auto) 8.8, Eosinophils (%) (Auto) 0.4, Basophils (%) (Auto) 0.8, Sodium Level 141, Potassium Level 3.7, Chloride Level 106, Carbon Dioxide Level 30, Anion Gap 5, Blood Urea Nitrogen 10, Creatinine 0.6, Estimat Glomerular Filtration Rate > 60, Glucose Level 154H, Calcium Level 8.7 Height (Feet): 5 Height (Inches): 0.00 Weight (Pounds): 154 General Appearance: no apparent distress EENT: normal ENT inspection Neck: supple Cardiovascular: normal rate Respiratory/Chest: decreased breath sounds Abdomen: normal bowel sounds, non tender, soft Extremities: non-tender Sven Villalta MD January 17, 2020 10:33
--- NOTE | 2020-01-17 11:50 | Nephrology Progress Note ---
Assessment/Plan Problem List: (1) ROSARIO (acute kidney injury) (2) Dehydration (3) Electrolyte imbalance (4) NSTEMI (non-ST elevated myocardial infarction) (5) COVID-19 virus infection (6) Anemia Assessment Acute renal failure Severe dehydration Hypernatremia indicative of free water depletion Hypercalcemia likely due to dehydration Elevated hemoglobin likely secondary to hemoconcentration Elevated troponin Poor p.o. intake / failure to thrive Dementia Hypertension Exposure to COVID-19 Plan Covid19 test positive Received PEG today January 04 WBCs carlene over 15,000, but now is WNL Stable from renal standpoint to view Continue per ID advice Previously: Discontinue potassium chloride p.o. IV Protonix to Prevacid via NG tube At the folic acid to medication Watch declining hemoglobin Aspirin 2D echocardiogram, results still pending Nitropaste Avoid nephrotoxic's Monitor renal parameters Monitor hemoglobin hematocrit Avoid mind altering medication in view of severe lethargy Per orders Subjective ROS Limited/Unobtainable: No Objective Objective Last 24 Hour Vital Signs Date Time Temp Pulse Resp B/P (MAP) Pulse Ox O2 Delivery O2 Flow Rate FiO2 01/17/20 09:00 Room Air 01/17/20 08:00 98.6 77 20 130/70 (90) 98 01/17/20 05:18 130/66 01/17/20 04:00 98.5 72 20 130/66 (87) 97 01/17/20 00:00 98.1 74 20 129/68 (88) 97 01/16/20 21:04 135/67 01/16/20 21:00 Room Air 01/16/20 20:00 98.8 73 20 135/67 (89) 97 01/16/20 16:00 98.4 72 19 136/67 (90) 100 01/16/20 14:33 139/60 01/16/20 12:00 98.1 70 19 139/60 (86) 100 Intake and Output 01/16/20 01/17/20 19:00 07:00 Intake Total 1137.5 ml 1110.0 ml Balance 1137.5 ml 1110.0 ml Intake Free Water 100 ml 200 ml IV Total 437.5 ml 410.0 ml Tube Feeding 600 ml 500 ml # Bowel Movements 1 Laboratory Tests 01/17/20 06:25: White Blood Count 8.2, Red Blood Count 3.12L, Hemoglobin 10.1L, Hematocrit 29.2L , Mean Corpuscular Volume 94, Mean Corpuscular Hemoglobin 32.3H, Mean Corpuscular Hemoglobin Concent 34.4, Red Cell Distribution Width 14.6, Platelet Count 349, Mean Platelet Volume 5.5L, Neutrophils (%) (Auto) 63.1, Lymphocytes ( %) (Auto) 26.9, Monocytes (%) (Auto) 8.8, Eosinophils (%) (Auto) 0.4, Basophils (%) (Auto) 0.8, Sodium Level 141, Potassium Level 3.7, Chloride Level 106, Carbon Dioxide Level 30, Anion Gap 5, Blood Urea Nitrogen 10, Creatinine 0.6, Estimat Glomerular Filtration Rate > 60, Glucose Level 154H, Calcium Level 8.7 Height (Feet): 5 Height (Inches): 0.00 Weight (Pounds): 154 General Appearance: no apparent distress Cardiovascular: normal rate Respiratory/Chest: decreased breath sounds Abdomen: soft Objective No change Robert Foreman MD January 17, 2020 11:50
[2020-01-17 12:00] VITALS: BP 121/65
[2020-01-17 16:00] VITALS: BP 140/77
--- NOTE | 2020-01-17 18:50 | Surgery Progress Note ---
Surgery Progress Note Subjective Additional Comments no acute events comfortable Objective Last 24 Hour Vital Signs Date Time Temp Pulse Resp B/P (MAP) Pulse Ox O2 Delivery O2 Flow Rate FiO2 01/17/20 16:00 98.0 76 20 140/77 (98) 96 01/17/20 14:14 121/65 01/17/20 12:00 97.8 71 19 121/65 (83) 96 01/17/20 09:00 Room Air 01/17/20 08:00 98.6 77 20 130/70 (90) 98 01/17/20 05:18 130/66 01/17/20 04:00 98.5 72 20 130/66 (87) 97 01/17/20 00:00 98.1 74 20 129/68 (88) 97 01/16/20 21:04 135/67 01/16/20 21:00 Room Air 01/16/20 20:00 98.8 73 20 135/67 (89) 97 I&O Intake and Output 01/16/20 01/17/20 19:00 07:00 Intake Total 1137.5 ml 1110.0 ml Balance 1137.5 ml 1110.0 ml Intake Free Water 100 ml 200 ml IV Total 437.5 ml 410.0 ml Tube Feeding 600 ml 500 ml # Bowel Movements 1 Dressing: other Wound: other Drains: other Cardiovascular: RSR Respiratory: decreased breath sounds Abdomen: soft, non-tender, present bowel sounds Extremities: no cyanosis Laboratory Tests Test 01/17/20 06:25 White Blood Count 8.2 K/UL (4.8-10.8) Red Blood Count 3.12 M/UL (4.20-5.40) L Hemoglobin 10.1 G/DL (12.0-16.0) L Hematocrit 29.2 % (37.0-47.0) L Mean Corpuscular Volume 94 FL (80-99) Mean Corpuscular Hemoglobin 32.3 PG (27.0-31.0) H Mean Corpuscular Hemoglobin Concent 34.4 G/DL (32.0-36.0) Red Cell Distribution Width 14.6 % (11.6-14.8) Platelet Count 349 K/UL (150-450) Mean Platelet Volume 5.5 FL (6.5-10.1) L Neutrophils (%) (Auto) 63.1 % (45.0-75.0) Lymphocytes (%) (Auto) 26.9 % (20.0-45.0) Monocytes (%) (Auto) 8.8 % (1.0-10.0) Eosinophils (%) (Auto) 0.4 % (0.0-3.0) Basophils (%) (Auto) 0.8 % (0.0-2.0) Sodium Level 141 MMOL/L (136-145) Potassium Level 3.7 MMOL/L (3.5-5.1) Chloride Level 106 MMOL/L (98-107) Carbon Dioxide Level 30 MMOL/L (21-32) Anion Gap 5 mmol/L (5-15) Blood Urea Nitrogen 10 mg/dL (7-18) Creatinine 0.6 MG/DL (0.55-1.30) Estimat Glomerular Filtration Rate > 60 mL/min (>60) Glucose Level 154 MG/DL (74-106) H Calcium Level 8.7 MG/DL (8.5-10.1) Plan Problems: (1) Leukocytosis Assessment & Plan: Acute leukocytosis. Microbiology identified staph E. On antibiotics per infectious disease. WBC trending down. Complete examination identified no external source of potential staph infection in the blood bacteremia DTI noted Continue antibiotics as per infectious disease Trend labs persistent wbc micro reviewed as above worsening ID input appreciated We will follow with recommendations (2) Sepsis Assessment & Plan: negative x 2 CO VID Pneumonia improving Recent acute leukocytosis trending down Course of hydroxy completed stable Improving Continue current care plan Abnormal LFTs identified Hold on abdominal ultrasound for now nutritional optimization turn q2h off load pressures cont tube feeds at goal fever improving wbc improving DAILY ESTIMATED NEEDS: Needs based on ROSARIO, sepsis, Cardiac/ 52kg abw 25-30 kcals/kg 4070-6341 total kcals 1-2 g protein/kg 52-104 g total protein 25-30 mL/kg 3521-5187 total fluid mLs NUTRITION DIAGNOSIS: Swallowing difficulty R/T dysphagia, AMS, lethargy as evidenced by NPO at this time, STOCK PREPARER eval pending, FTT dx, s/p PEG placement. CURRENT TF:Jevity 1.2 @ 50ml/hr x 24 hrs ENTERAL NUTRITION RECOMMENDATIONS: Jevity 1.2 @ 50ml/hr x 24 hrs to provide 1200ml, 1440kcal, 66g prot, 968ml free water * Maintain current TF * HOB over 30 degrees * Water flush of 150ml q 8 hrs --- W/ consistently elev BGs, rec Glucerna 1.5 (Glucerna 1.2 is out of stock) @ goal rate of 40ml/hr x 24 hrs to provide 960ml, 1440kcal, 79g prot, 729ml free water. ADDITIONAL RECOMMENDATIONS: * Calibrated bedscale wt for accurate CBW- discrepency wt in EMR noted per SNF record: HT=60", PI=935.4lbs (December 2019) - RECALIBRATE BEDSCALE (BEDSCALE READS "0" ON 01/09) * Monitor lytes, replete as needed * Monitor BGs, need for carb controlled TF (3) Staphylococcus epidermidis bacteremia Assessment & Plan: As above Andi Valera January 17, 2020 18:50
--- NOTE | 2020-01-17 19:34 | Infectious Diseases Prog Note ---
Assessment/Plan Problems: (1) Leukocytosis Assessment & Plan: with recurrent fever while on aztreonam , withn no evidence of new infection and negative panculture and CT image for any source of infection , suspect bone marrow pathology VS Thrombophlebitis . repeated Blood culture x 2 is negative , urine culture showed no growth , CXR no acute or new infiltrates or effusion , her Harris catheter was changed on January 08. will continue zosyn and zyvox for 7 days course of treatment for thrombophlebitis , indium scan is negative for active focus of infection (2) Catheter-associated urinary tract infection Assessment & Plan: with PROTEUS MIRABILIS , now on zosyn for 7 days , repeated urine culture showed no growth and her Harris catheter was changed (3) Sepsis Assessment & Plan: with fever and leukocytosis , source ? repeated blood cultures 2 is NTD , CXR showed no new infiltration or effusion, and urine culture showed no growth, ct abd/pelvis and chest is negative for infectious source . indium scan no occult focus of infection . (4) COVID-19 virus infection Assessment & Plan: off enhanced droplet isolation, S/P hydroxychloroquin with zinc and vitamin C for five days total.repeated PCR test times two so far is negative. 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 in both arms, continue full anticoagulation as per primary , high risk for thrombosis due to recent COVID 19 infection. continue antibiotics for 7 days total Subjective ROS Limited/Unobtainable: Yes Allergies: Coded Allergies: MEMANTINE (Unverified Allergy, Unknown, 12/15/19) SERTRALINE (Unverified Allergy, Unknown, 12/15/19) Subjective she was lying in bed , awake and responsive, no fever today, or cough and no phlegm or SOB, responsive but confused , no diarrhea so far , urine is clear and Harris catheter was changed Objective Vital Signs Last 24 Hour Vital Signs Date Time Temp Pulse Resp B/P (MAP) Pulse Ox O2 Delivery O2 Flow Rate FiO2 01/17/20 16:00 98.0 76 20 140/77 (98) 96 01/17/20 14:14 121/65 01/17/20 12:00 97.8 71 19 121/65 (83) 96 01/17/20 09:00 Room Air 01/17/20 08:00 98.6 77 20 130/70 (90) 98 01/17/20 05:18 130/66 01/17/20 04:00 98.5 72 20 130/66 (87) 97 01/17/20 00:00 98.1 74 20 129/68 (88) 97 01/16/20 21:04 135/67 01/16/20 21:00 Room Air 01/16/20 20:00 98.8 73 20 135/67 (89) 97 Height (Feet): 5 Height (Inches): 0.00 Weight (Pounds): 154 General Appearance: WD/WN, no acute distress HEENT: normocephalic, atraumatic, anicteric, mucous membranes moist, PERRL Respiratory/Chest: chest wall non-tender, lungs clear, normal breath sounds, no respiratory distress, no accessory muscle use Cardiovascular: normal peripheral pulses, normal rate, regular rhythm, no gallop/murmur, no JVD Abdomen: normal bowel sounds, soft, non tender, no organomegaly, non distended , no mass, no scars Genitourinary: normal external genitalia Extremities: no cyanosis, no clubbing Skin: no rash, no lesions 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: alert Lymphatic: no neck adenopathy, no groin adenopathy Laboratory Tests Test 01/17/20 06:25 White Blood Count 8.2 K/UL (4.8-10.8) Red Blood Count 3.12 M/UL (4.20-5.40) L Hemoglobin 10.1 G/DL (12.0-16.0) L Hematocrit 29.2 % (37.0-47.0) L Mean Corpuscular Volume 94 FL (80-99) Mean Corpuscular Hemoglobin 32.3 PG (27.0-31.0) H Mean Corpuscular Hemoglobin Concent 34.4 G/DL (32.0-36.0) Red Cell Distribution Width 14.6 % (11.6-14.8) Platelet Count 349 K/UL (150-450) Mean Platelet Volume 5.5 FL (6.5-10.1) L Neutrophils (%) (Auto) 63.1 % (45.0-75.0) Lymphocytes (%) (Auto) 26.9 % (20.0-45.0) Monocytes (%) (Auto) 8.8 % (1.0-10.0) Eosinophils (%) (Auto) 0.4 % (0.0-3.0) Basophils (%) (Auto) 0.8 % (0.0-2.0) Sodium Level 141 MMOL/L (136-145) Potassium Level 3.7 MMOL/L (3.5-5.1) Chloride Level 106 MMOL/L (98-107) Carbon Dioxide Level 30 MMOL/L (21-32) Anion Gap 5 mmol/L (5-15) Blood Urea Nitrogen 10 mg/dL (7-18) Creatinine 0.6 MG/DL (0.55-1.30) Estimat Glomerular Filtration Rate > 60 mL/min (>60) Glucose Level 154 MG/DL (74-106) H Calcium Level 8.7 MG/DL (8.5-10.1) Current Medications Medications (Trade) Dose Ordered Sig/Ovi Route PRN Reason Start Time Stop Time Status Last Admin Dose Admin Acetaminophen (Tylenol) 650 mg Q4H PRN NG Temp >100.5 01/05/20 12:16 02/04/20 12:15 01/09/20 08:45 Aspirin (ASA) 81 mg DAILY NG 01/06/20 09:00 02/02/20 08:59 01/17/20 08:41 Atorvastatin Calcium (Lipitor) 20 mg BEDTIME NG 01/05/20 21:00 03/18/20 20:59 01/16/20 21:04 Captopril (Capoten) 6.25 mg EVERY 8 HOURS NG 01/05/20 14:00 01/24/20 20:59 01/17/20 14:14 Enoxaparin Sodium (Lovenox) 70 mg EVERY 12 HOURS SUBQ 01/11/20 21:00 04/10/20 20:59 01/17/20 08:42 Folic Acid (Folate) 2 mg DAILY NG 01/06/20 09:00 01/29/20 11:59 01/17/20 08:41 Lansoprazole (Prevacid) 30 mg BID NG 01/05/20 18:00 01/28/20 17:59 01/17/20 18:00 Linezolid 300 ml @ 300 mls/hr Q12H IVPB 01/09/20 18:00 01/18/20 17:59 01/17/20 18:00 Piperacillin Sod/ Tazobactam Sod 3.375 gm/Sodium Chloride 110 ml @ 27.5 mls/hr EVERY 8 HOURS IVPB 01/09/20 14:00 01/18/20 13:59 01/17/20 14:14 Valproic Acid (Depakene) 500 mg EVERY 12 HOURS NG 01/05/20 21:00 01/17/20 23:14 01/17/20 08:41 Sukhjinder Howell M.D. January 17, 2020 19:34
[2020-01-17 20:00] VITALS: BP 133/64
[2020-01-17] MEDS: Atorvastatin 20mg tab NG SCH (20:42)
[2020-01-17] MEDS ORDERED: HydrOXYzine tab 25mg tab ORAL PRN (23:45)
[2020-01-18 00:25] VITALS: BP 124/63
[2020-01-18 04:15] VITALS: BP 138/67
[2020-01-18] MEDS: Captopril 12.5mg tab NG SCH (05:42)
[2020-01-18] MEDS: Piperacillin/Tazobactam 3.375 GM in NS 110 ML IVPB SCH (05:42)
[2020-01-18 08:00] VITALS: BP 141/70
--- NOTE | 2020-01-18 08:32 | Pulmonology Progress Note ---
Marge Gutierrez HEATING AND COOLING SYSTEMS ENGINEER 01/18/20 0832: Subjective ROS Limited/Unobtainable: Yes Interval Events: Allergies: Coded Allergies: MEMANTINE (Unverified Allergy, Unknown, 12/15/19) SERTRALINE (Unverified Allergy, Unknown, 12/15/19) Subjective leukocytosis resolved, no fevers since 01/09 MN but this am low grade fever 100 SARS- CoV -2 by PCR 12/21 , 12/24 , 01/09, 01/10 not detected s/p EGF and PEG 01/04 tolerates TF CXR 01/06 no definite acute process Venous Duplex + DVT cephalic vein BUE, started on Lovenox more awake, but poorly responsive Objective Last 24 Hour Vital Signs Date Time Temp Pulse Resp B/P (MAP) Pulse Ox O2 Delivery O2 Flow Rate FiO2 01/18/20 05:42 138/67 01/18/20 04:15 100.0 71 24 138/67 (90) 97 01/18/20 00:25 99.3 73 22 124/63 (83) 96 01/17/20 21:37 Room Air 01/17/20 20:43 133/64 01/17/20 20:00 99.0 73 20 133/64 (87) 95 01/17/20 16:00 98.0 76 20 140/77 (98) 96 01/17/20 14:14 121/65 01/17/20 12:00 97.8 71 19 121/65 (83) 96 01/17/20 09:00 Room Air Intake and Output 01/17/20 01/18/20 19:00 07:00 Intake Total 900 ml 1337.5 ml Output Total 1300 ml 700 ml Balance -400 ml 637.5 ml Intake Free Water 300 ml IV Total 300 ml 437.5 ml Tube Feeding 600 ml 600 ml Output Urine Total 1300 ml 700 ml # Bowel Movements 1 Objective General Appearance: WD/WN, in no acute distress elderly AA female , awake, HEENT: normocephalic, atraumatic, anicteric, mucous membranes moist, PERRL, Respiratory/Chest: BS overall clear Cardiovascular: normal peripheral pulses, normal rate, Abdomen: normal bowel sounds, soft, non tender, , G tube with TF infusing, site clean, Genitourinary: normal external genitalia Extremities: no cyanosis, no clubbing, edema BUE Skin: no rash, R elbow abrasion, no ulcers 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: director statistical programming II-XII grossly normal, awake, but poorly responsive Lymphatic: no neck adenopathy, no groin adenopathy Musculoskeletal: muscle atrophy, no effusion Current Medications Medications (Trade) Dose Ordered Sig/Ovi Route PRN Reason Start Time Stop Time Status Last Admin Dose Admin Acetaminophen (Tylenol) 650 mg Q4H PRN NG Temp >100.5 01/05/20 12:16 02/04/20 12:15 01/09/20 08:45 Aspirin (ASA) 81 mg DAILY NG 01/06/20 09:00 02/02/20 08:59 01/17/20 08:41 Atorvastatin Calcium (Lipitor) 20 mg BEDTIME NG 01/05/20 21:00 03/18/20 20:59 01/17/20 20:42 Captopril (Capoten) 6.25 mg EVERY 8 HOURS NG 01/05/20 14:00 01/24/20 20:59 01/18/20 05:42 Enoxaparin Sodium (Lovenox) 70 mg EVERY 12 HOURS SUBQ 01/11/20 21:00 04/10/20 20:59 01/17/20 20:43 Folic Acid (Folate) 2 mg DAILY NG 01/06/20 09:00 01/29/20 11:59 01/17/20 08:41 Lansoprazole (Prevacid) 30 mg BID NG 01/05/20 18:00 01/28/20 17:59 01/17/20 18:00 Linezolid 300 ml @ 300 mls/hr Q12H IVPB 01/09/20 18:00 01/18/20 17:59 01/18/20 04:39 Piperacillin Sod/ Tazobactam Sod 3.375 gm/Sodium Chloride 110 ml @ 27.5 mls/hr EVERY 8 HOURS IVPB 01/09/20 14:00 01/18/20 13:59 01/18/20 05:42 Assessment/Plan Assessment/Plan PROBLEMS Confirmed COVID-19 virus infection Viral pneumonia Electrolyte imbalance NSTEMI (non-ST elevated myocardial infarction) Encephalopathy Dehydration ROSARIO (acute kidney injury) Staphylococcus epidermidis bacteremia Anemia Persistent leukocytosis with intermittent fevers ASSESSMENT Probably sepsis ( POA, with leukocytosis, lactic acidosis, evidence of infection ) Confirmed CoVID 19 infection Acute hypoxemic respiratory failure-resolved S epidermis bacteremia New leukocytosis with fevers, Proteus UTI Acute renal failure - RESOLVED Severe dehydration - IMPROVED Hypernatremia indicative of free water depletion Hypercalcemia likely due to dehydration Elevated hemoglobin likely secondary to hemoconcentration, now anemia Elevated troponin/NSTEMI Poor p.o. intake / failure to thrive Dementia Hypertension Generalized anxiety disorder Dysphagia , s/p EGD and PEG / Anemia of chronic disease Folate deficiency DVT BUE cephalic vein PLAN OF CARE * COVID-19 isolation status, confirmed 12/14, * repeat COVID 12/21- and 12/24 NGT -> off isolation now * COVID 19 NGT 01/09 and 01/10 * on [facility] floor * monitor oxygenation closely, on RA or only on 1-2L nasal cannula * CXR prn only if worsening symptoms, CXR 12/16 clear lungs * fup CXR 12/25 done , given mild leukocytosis -no acute findings * worsening leukocytosis, fevers, recultured 12/31, fup with cx: UA + pyuria, UCX -GNB ; BCX 01/01 -NGTD * CXR 01/01 No focal consolidative process or pleural effusions, not likely PNA, leuk probably due to UTI * repeat CXR ( fevers, cough) * also check stool C dif * Vanco per ID, needs 2 wks for Staph epidermidis ( repeated BCX 12/20 still + with Staph epidermidis 09/02) -completed ; * repeated BCX 01/01 NGT * discussed with ID Dr Howell - Zosyn added for GN coverage 01/01, F/c changed 12/29 * UCX + Proteus, Zosyn changed to Aztreonam per ID x 10 days * stool C dif 01/03 NGT, * CXR 01/06 no acute process * unclear cause of persistent leukocytosis and intermittent fevers- * abx escalated by ID: aztreonam changed to Zosyn adn Zyvox, pt pancultured, * F/c was dc * completing abx 01/17 today * UCX / NGTD, BCX 01/08 NGTD * CT C/ A/P done 01/09, results noted ; no findings to account for persistent leukocytosis and intermittent fevers * skin thickening and infiltration of the subcutaneous fat in the right groin/ upper thigh region, noted on CT, no clinical evidence of cellulitis . No abscess * CRP 01/05 01/10 ( down from last 16.1) * Completed 5 days of Plaquenil * s/p IVF , nephro on board * Monitor electrolytes and renal parameters * Echo 12/26 with pEF 65% and moderate left ventricular hypertrophy, no evidence of vegetation * on a/PLT therapy with ASA, statin , DUKE for afterload reduction * prior : NPO, NGTF's, HAND WASHER eval , strict aspiration precautions, unable to participate in swallow eval * Dr Toledo spoke with daughter Dayna Milton 12/27 ([phone]) and discussed further goals of care, she will need to discuss with other family members and will get back to us: either PEG placement or palliative care * awaiting for family decision, daughter decided to continue Full code and wants G tube * GI on board now, * s/p EGD and PEG 01/04, * asp precautions, GTF as per GI recs, tolerates * Cont Depakote 500 mg bid from SNF * Anemia w/up c/w ACD and folate deficiency, started on folate replacement * stool OB negative * monitor HH with goal to keep Hgb above 7 * venous Duplex BUE r/o DVT @ to bilateral edema * wound care for R elbow abrasion * venous Duplex + BUE cephalic best thrombus, given + COVID and hypercoagulability state, started on Lovenox, plan a/c for 3 months, transition to Eliquis upon dc * BM biopsy was cancelled given resolved leukocytosis and fevers * heme eval if able to get -no further needs * attempted 01/12 to cancel NM WBC scan, however, the first part was already done , completed yesterday 2 nd part, * WBC showed only a small faint area of abnormal uptake is noted in the anterior abdominal wall just left of midline likely corresponding with mild soft tissue induration at the entry site of the PEG tube. * fup with SPEP/noted, UPEP - pending, retic -2.9 , peripheral smear * dc plan , in progress * new low grade fever this am 01/17 , will get CBC and CXR this am discussed with ID Notes Reviewed: cardio, renal, ID Discussed with: nurses, case discussed and evaluated by supervising physician Rob Robison MD 01/18/20 1518: Subjective Allergies: Coded Allergies: MEMANTINE (Unverified Allergy, Unknown, 12/15/19) SERTRALINE (Unverified Allergy, Unknown, 12/15/19) Assessment/Plan Assessment/Plan Patient seen and examined with HEATING AND COOLING SYSTEMS ENGINEER. Agree with above A&P as it reflects our joint deliberations. CBC and CXR reviewed with no leukocytosis and no obvious infiltrates. Monitor clinically. Marge Gutierrez NP January 18, 2020 08:32 Rob Robison MD January 18, 2020 15:18
[2020-01-18] MEDS: Aspirin Baby 81mg NG SCH (08:45)
[2020-01-18] MEDS: Enoxaparin 80mg Inj SUBQ SCH (08:46)
--- NOTE | 2020-01-18 09:43 | General Progress Note ---
Assessment/Plan Status: stable, progressing Assessment/Plan: 1. The patient is an 89-year-old female with current medical problem as COVID positive pneumonia resolving. 2. Diabetes. 3. Anemia. 4. Abnormal liver function tests. 5. Sepsis. 6. Dysphagia. 7. Non-ST elevation myocardial infarction. 8. Dementia. 9. Encephalopathy. 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 s/p GT placement GTF GT care monitor for residuals Subjective ROS Limited/Unobtainable: No Allergies: Coded Allergies: MEMANTINE (Unverified Allergy, Unknown, 12/15/19) SERTRALINE (Unverified Allergy, Unknown, 12/15/19) Objective Last 24 Hour Vital Signs Date Time Temp Pulse Resp B/P (MAP) Pulse Ox O2 Delivery O2 Flow Rate FiO2 01/18/20 08:00 97.1 76 20 141/70 (93) 100 01/18/20 05:42 138/67 01/18/20 04:15 100.0 71 24 138/67 (90) 97 01/18/20 00:25 99.3 73 22 124/63 (83) 96 01/17/20 21:37 Room Air 01/17/20 20:43 133/64 01/17/20 20:00 99.0 73 20 133/64 (87) 95 01/17/20 16:00 98.0 76 20 140/77 (98) 96 01/17/20 14:14 121/65 01/17/20 12:00 97.8 71 19 121/65 (83) 96 Intake and Output 01/17/20 01/18/20 19:00 07:00 Intake Total 900 ml 1337.5 ml Output Total 1300 ml 700 ml Balance -400 ml 637.5 ml Intake Free Water 300 ml IV Total 300 ml 437.5 ml Tube Feeding 600 ml 600 ml Output Urine Total 1300 ml 700 ml # Bowel Movements 1 Height (Feet): 5 Height (Inches): 0.00 Weight (Pounds): 156 General Appearance: no apparent distress EENT: normal ENT inspection Neck: supple Cardiovascular: normal rate Respiratory/Chest: decreased breath sounds Abdomen: normal bowel sounds, non tender, soft Extremities: non-tender Sven Villalta MD January 18, 2020 09:43
[2020-01-18 10:53] LABS: BASOPHILS % (AUTO) 0.5 % (0.0-2.0); EOSINOPHILS % (AUTO) 0.1 % (0.0-3.0); HEMATOCRIT 25.8 % (37.0-47.0); HEMOGLOBIN 9.2 G/DL (12.0-16.0); LYMPHOCYTES % (AUTO) 16.3 % (20.0-45.0); MEAN CORPUSCULAR VOLUME 91 FL (80-99); MONOCYTES % (AUTO) 12.4 % (1.0-10.0); NEUTROPHILS % (AUTO) 70.8 % (45.0-75.0); PLATELET COUNT 306 K/UL (150-450); RED BLOOD COUNT 2.84 M/UL (4.20-5.40); RED CELL DISTRIBUTION WIDTH 13.7 % (11.6-14.8); WHITE BLOOD COUNT 10.6 K/UL (4.8-10.8)
[2020-01-18 12:00] VITALS: BP 133/72
--- NOTE | 2020-01-18 13:09 | Cardiology Progress Note ---
Assessment/Plan Assessment/Plan 1. [id number] myocardial infarction,related to demand vs from covid induced myonecrosis , doubt plaque rupture or cytokine storm 2. Acute renal failure in the setting of volume depletion. 3. Hypernatremia secondary to volume depletion. 4. 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 5. Dementia. 6. Lactic acidosis. 7. History of bradycardia secondary to medications. 8. bacteremia low grade fever again yest covid status now neg on sq heparin for dvt ppx echo prelim noted no sig abn peg performed await snf placement Subjective Subjective per rnPt. nonverbal, NC 2 L, no indications of respiratory distress, no indications of pain. IV left hand 24g intact and patent. Harris intact and secured, draining yellow urine well. Gtube running documistic 1.2 at 50cc/hr. Objective Last 24 Hour Vital Signs Date Time Temp Pulse Resp B/P (MAP) Pulse Ox O2 Delivery O2 Flow Rate FiO2 01/18/20 12:00 98.2 73 19 133/72 (92) 98 01/18/20 09:00 Room Air 01/18/20 08:00 97.1 76 20 141/70 (93) 100 01/18/20 05:42 138/67 01/18/20 04:15 100.0 71 24 138/67 (90) 97 01/18/20 00:25 99.3 73 22 124/63 (83) 96 01/17/20 21:37 Room Air 01/17/20 20:43 133/64 01/17/20 20:00 99.0 73 20 133/64 (87) 95 01/17/20 16:00 98.0 76 20 140/77 (98) 96 01/17/20 14:14 121/65 General Appearance: no apparent distress, alert Intake and Output 01/17/20 01/18/20 19:00 07:00 Intake Total 900 ml 1337.5 ml Output Total 1300 ml 700 ml Balance -400 ml 637.5 ml Intake Free Water 300 ml IV Total 300 ml 437.5 ml Tube Feeding 600 ml 600 ml Output Urine Total 1300 ml 700 ml # Bowel Movements 1 Laboratory Tests Test 01/18/20 10:20 White Blood Count 10.6 K/UL (4.8-10.8) Red Blood Count 2.84 M/UL (4.20-5.40) L Hemoglobin 9.2 G/DL (12.0-16.0) L Hematocrit 25.8 % (37.0-47.0) L Mean Corpuscular Volume 91 FL (80-99) Mean Corpuscular Hemoglobin 32.3 PG (27.0-31.0) H Mean Corpuscular Hemoglobin Concent 35.5 G/DL (32.0-36.0) Red Cell Distribution Width 13.7 % (11.6-14.8) Platelet Count 306 K/UL (150-450) Mean Platelet Volume 5.6 FL (6.5-10.1) L Neutrophils (%) (Auto) 70.8 % (45.0-75.0) Lymphocytes (%) (Auto) 16.3 % (20.0-45.0) L Monocytes (%) (Auto) 12.4 % (1.0-10.0) H Eosinophils (%) (Auto) 0.1 % (0.0-3.0) Basophils (%) (Auto) 0.5 % (0.0-2.0) Kendell Rosen MD January 18, 2020 13:09
--- NOTE | 2020-01-18 13:28 | Surgery Progress Note ---
Surgery Progress Note Subjective Symptoms: improved, tolerating diet, voiding well, passing flatus Objective Last 24 Hour Vital Signs Date Time Temp Pulse Resp B/P (MAP) Pulse Ox O2 Delivery O2 Flow Rate FiO2 01/18/20 12:00 98.2 73 19 133/72 (92) 98 01/18/20 09:00 Room Air 01/18/20 08:00 97.1 76 20 141/70 (93) 100 01/18/20 05:42 138/67 01/18/20 04:15 100.0 71 24 138/67 (90) 97 01/18/20 00:25 99.3 73 22 124/63 (83) 96 01/17/20 21:37 Room Air 01/17/20 20:43 133/64 01/17/20 20:00 99.0 73 20 133/64 (87) 95 01/17/20 16:00 98.0 76 20 140/77 (98) 96 01/17/20 14:14 121/65 I&O Intake and Output 01/17/20 01/18/20 19:00 07:00 Intake Total 900 ml 1337.5 ml Output Total 1300 ml 700 ml Balance -400 ml 637.5 ml Intake Free Water 300 ml IV Total 300 ml 437.5 ml Tube Feeding 600 ml 600 ml Output Urine Total 1300 ml 700 ml # Bowel Movements 1 Dressing: saturated Wound: other Drains: other Cardiovascular: RSR Respiratory: decreased breath sounds Abdomen: soft, non-tender, present bowel sounds Extremities: no cyanosis Laboratory Tests Test 01/18/20 10:20 White Blood Count 10.6 K/UL (4.8-10.8) Red Blood Count 2.84 M/UL (4.20-5.40) L Hemoglobin 9.2 G/DL (12.0-16.0) L Hematocrit 25.8 % (37.0-47.0) L Mean Corpuscular Volume 91 FL (80-99) Mean Corpuscular Hemoglobin 32.3 PG (27.0-31.0) H Mean Corpuscular Hemoglobin Concent 35.5 G/DL (32.0-36.0) Red Cell Distribution Width 13.7 % (11.6-14.8) Platelet Count 306 K/UL (150-450) Mean Platelet Volume 5.6 FL (6.5-10.1) L Neutrophils (%) (Auto) 70.8 % (45.0-75.0) Lymphocytes (%) (Auto) 16.3 % (20.0-45.0) L Monocytes (%) (Auto) 12.4 % (1.0-10.0) H Eosinophils (%) (Auto) 0.1 % (0.0-3.0) Basophils (%) (Auto) 0.5 % (0.0-2.0) Plan Problems: (1) Leukocytosis Assessment & Plan: Acute leukocytosis. Microbiology identified staph E. On antibiotics per infectious disease. WBC trending down. Complete examination identified no external source of potential staph infection in the blood bacteremia DTI noted Continue antibiotics as per infectious disease Trend labs persistent wbc micro reviewed as above worsening ID input appreciated We will follow with recommendations DAILY ESTIMATED NEEDS: Needs based on ROSARIO, sepsis, Cardiac/ 52kg abw 25-30 kcals/kg 8313-7152 total kcals 1-2 g protein/kg 52-104 g total protein 25-30 mL/kg [id number] total fluid mLs NUTRITION DIAGNOSIS: Swallowing difficulty R/T dysphagia, AMS, lethargy as evidenced by NPO at this time, APPEALS REFEREE eval pending, FTT dx, s/p PEG placement, on GT feeding. CURRENT TF:Jevity 1.2 @ 50ml/hr x 24 hrs ENTERAL NUTRITION RECOMMENDATIONS: Jevity 1.2 @ 50ml/hr x 24 hrs to provide 1200ml, 1440kcal, 66g prot, 968ml free water * Maintain current TF * HOB over 30 degrees * Water flush of 150ml q 8 hrs --- W/ consistently elev BGs, rec Glucerna 1.5 (Glucerna 1.2 is out of stock) @ goal rate of 40ml/hr x 24 hrs to provide 960ml, 1440kcal, 79g prot, 729ml free water. ADDITIONAL RECOMMENDATIONS: * Calibrated bedscale wt for accurate CBW- discrepency wt in EMR noted per SNF record: HT=60", BP=712.4lbs (December 2019) - RECALIBRATE BEDSCALE (BEDSCALE READS "0" ON 01/17) * Monitor lytes, replete as needed * Monitor BGs, need for carb controlled TF (2) Sepsis Assessment & Plan: negative x 2 CO VID Pneumonia improving Recent acute leukocytosis trending down Course of hydroxy completed stable Improving Continue current care plan Abnormal LFTs identified Hold on abdominal ultrasound for now nutritional optimization turn q2h off load pressures cont tube feeds at goal fever improving wbc improving (3) Staphylococcus epidermidis bacteremia Assessment & Plan: As above Andi Valera January 18, 2020 13:28
--- NOTE | 2020-01-18 13:46 | Diagnostic Imaging Report ---
Procedure: XRAY Chest 1v Reason for study: Reason For Exam: SOB Comparison films: 01/09/2020. FINDINGS: A single one view chest is obtained. Vascularity is normal. Linear atelectasis or scarring left lung base. Cardiac and mediastinal silhouette are within normal limits. CP angles are sharp. The bony thorax appear unremarkable. IMPRESSION: NO ACUTE CARDIOPULMONARY DISEASE.
--- NOTE | 2020-01-18 14:49 | Nephrology Progress Note ---
Assessment/Plan Problem List: (1) ROSARIO (acute kidney injury) (2) Dehydration (3) Electrolyte imbalance (4) NSTEMI (non-ST elevated myocardial infarction) (5) COVID-19 virus infection (6) Anemia Assessment Acute renal failure Severe dehydration Hypernatremia indicative of free water depletion Hypercalcemia likely due to dehydration Elevated hemoglobin likely secondary to hemoconcentration Elevated troponin Poor p.o. intake / failure to thrive Dementia Hypertension Exposure to COVID-19 Plan Covid19 test positive Received PEG today January 04 WBCs carlene over 15,000, but now is WNL Stable from renal standpoint to view Continue per ID advice Previously: Discontinue potassium chloride p.o. IV Protonix to Prevacid via NG tube At the folic acid to medication Watch declining hemoglobin Aspirin 2D echocardiogram, results still pending Nitropaste Avoid nephrotoxic's Monitor renal parameters Monitor hemoglobin hematocrit Avoid mind altering medication in view of severe lethargy Per orders Subjective ROS Limited/Unobtainable: No Constitutional: Reports: malaise, weakness Objective Objective Last 24 Hour Vital Signs Date Time Temp Pulse Resp B/P (MAP) Pulse Ox O2 Delivery O2 Flow Rate FiO2 01/18/20 12:00 98.2 73 19 133/72 (92) 98 01/18/20 09:00 Room Air 01/18/20 08:00 97.1 76 20 141/70 (93) 100 01/18/20 05:42 138/67 01/18/20 04:15 100.0 71 24 138/67 (90) 97 01/18/20 00:25 99.3 73 22 124/63 (83) 96 01/17/20 21:37 Room Air 01/17/20 20:43 133/64 01/17/20 20:00 99.0 73 20 133/64 (87) 95 01/17/20 16:00 98.0 76 20 140/77 (98) 96 Intake and Output 01/17/20 01/18/20 19:00 07:00 Intake Total 900 ml 1337.5 ml Output Total 1300 ml 700 ml Balance -400 ml 637.5 ml Intake Free Water 300 ml IV Total 300 ml 437.5 ml Tube Feeding 600 ml 600 ml Output Urine Total 1300 ml 700 ml # Bowel Movements 1 Laboratory Tests 01/18/20 10:20: White Blood Count 10.6, Red Blood Count 2.84L, Hemoglobin 9.2L, Hematocrit 25.8L , Mean Corpuscular Volume 91, Mean Corpuscular Hemoglobin 32.3H, Mean Corpuscular Hemoglobin Concent 35.5, Red Cell Distribution Width 13.7, Platelet Count 306, Mean Platelet Volume 5.6L, Neutrophils (%) (Auto) 70.8, Lymphocytes ( %) (Auto) 16.3L, Monocytes (%) (Auto) 12.4H, Eosinophils (%) (Auto) 0.1, Basophils (%) (Auto) 0.5 Height (Feet): 5 Height (Inches): 0.00 Weight (Pounds): 156 General Appearance: no apparent distress Cardiovascular: normal rate Respiratory/Chest: decreased breath sounds Abdomen: soft Objective No change Robert Foreman MD January 18, 2020 14:49
[2020-01-18] MEDS ORDERED: ELIQUIS5 MG PO (15:38)
[2020-01-18] MEDS ORDERED: ATORVASTATIN CA20 MG ORAL (15:39)
[2020-01-18] MEDS ORDERED: CAPTOPRIL12.5 MG PO (15:42)
[2020-01-18] MEDS ORDERED: FOLIC ACID1 MG ORAL (15:44)
[2020-01-18] MEDS ORDERED: LANSOPRAZOLE30 MG ORAL (15:45)
--- NOTE | 2020-01-18 17:25 | Infectious Diseases Prog Note ---
Assessment/Plan Problems: (1) Leukocytosis Assessment & Plan: with recurrent fever while on aztreonam , withn no evidence of new infection and negative panculture and CT image for any source of infection , suspect bone marrow pathology VS Thrombophlebitis . repeated Blood culture x 2 is negative , urine culture showed no growth , CXR no acute or new infiltrates or effusion , her Harris catheter was changed on January 08. will continue zosyn and zyvox for 7 days course of treatment for thrombophlebitis , indium scan is negative for active focus of infection (2) Catheter-associated urinary tract infection Assessment & Plan: with PROTEUS MIRABILIS , now on zosyn for 7 days , repeated urine culture showed no growth and her Harris catheter was changed (3) Sepsis Assessment & Plan: with fever and leukocytosis , source ? repeated blood cultures 2 is NTD , CXR showed no new infiltration or effusion, and urine culture showed no growth, ct abd/pelvis and chest is negative for infectious source . indium scan no occult focus of infection . (4) COVID-19 virus infection Assessment & Plan: off enhanced droplet isolation, S/P hydroxychloroquin with zinc and vitamin C for five days total.repeated PCR test times two so far is negative. 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 in both arms, continue full anticoagulation as per primary , high risk for thrombosis due to recent COVID 19 infection. continue antibiotics for 7 days total Subjective ROS Limited/Unobtainable: Yes Allergies: Coded Allergies: MEMANTINE (Unverified Allergy, Unknown, 12/15/19) SERTRALINE (Unverified Allergy, Unknown, 12/15/19) Subjective she was lying in bed , awake and responsive, no fever today, or cough and no phlegm or SOB, responsive but confused , no diarrhea so far , urine is clear and Harris catheter was changed Objective Vital Signs Last 24 Hour Vital Signs Date Time Temp Pulse Resp B/P (MAP) Pulse Ox O2 Delivery O2 Flow Rate FiO2 01/18/20 12:00 98.2 73 19 133/72 (92) 98 01/18/20 09:00 Room Air 01/18/20 08:00 97.1 76 20 141/70 (93) 100 01/18/20 05:42 138/67 01/18/20 04:15 100.0 71 24 138/67 (90) 97 01/18/20 00:25 99.3 73 22 124/63 (83) 96 01/17/20 21:37 Room Air 01/17/20 20:43 133/64 01/17/20 20:00 99.0 73 20 133/64 (87) 95 Height (Feet): 5 Height (Inches): 0.00 Weight (Pounds): 156 General Appearance: WD/WN, no acute distress HEENT: normocephalic, atraumatic, anicteric, mucous membranes moist, PERRL, supple, no JVD Respiratory/Chest: chest wall non-tender, lungs clear, normal breath sounds, no respiratory distress, no accessory muscle use Cardiovascular: normal peripheral pulses, normal rate, regular rhythm, no gallop/murmur, no JVD Abdomen: normal bowel sounds, soft, non tender, no organomegaly, non distended , no mass, no scars Genitourinary: normal external genitalia Extremities: no cyanosis, no clubbing Skin: no rash, no lesions, no ulcers 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: alert, responsive Lymphatic: no neck adenopathy, no groin adenopathy Laboratory Tests Test 01/18/20 10:20 White Blood Count 10.6 K/UL (4.8-10.8) Red Blood Count 2.84 M/UL (4.20-5.40) L Hemoglobin 9.2 G/DL (12.0-16.0) L Hematocrit 25.8 % (37.0-47.0) L Mean Corpuscular Volume 91 FL (80-99) Mean Corpuscular Hemoglobin 32.3 PG (27.0-31.0) H Mean Corpuscular Hemoglobin Concent 35.5 G/DL (32.0-36.0) Red Cell Distribution Width 13.7 % (11.6-14.8) Platelet Count 306 K/UL (150-450) Mean Platelet Volume 5.6 FL (6.5-10.1) L Neutrophils (%) (Auto) 70.8 % (45.0-75.0) Lymphocytes (%) (Auto) 16.3 % (20.0-45.0) L Monocytes (%) (Auto) 12.4 % (1.0-10.0) H Eosinophils (%) (Auto) 0.1 % (0.0-3.0) Basophils (%) (Auto) 0.5 % (0.0-2.0) Sukhjinder Howell M.D. January 18, 2020 17:25
[2020-01-19] MEDS ORDERED: Enoxaparin 80mg Inj SUBQ SCH (09:00)
--- NOTE | 2020-01-20 12:44 | Discharge Summary ---
Discharge Summary Discharge Summary _ DATE OF ADMISSION: 12/15/2019 DATE OF DISCHARGE: 01/18/2020 DISCHARGED BY: Dr. Toledo REASON FOR ADMISSION: 89 years old female with past medical history of hypertension, NSTEMI, dementia , frequent falls, anxiety, [facility] department and was found to be hypoxic and have acute kidney injury. Patient apparently had not been eating for several days. Laboratory work-up in the ED revealed acute kidney injury, hypernatremia, polycythemia, lactic acidosis and elevated troponin. EKG revealed no acute ischemic changes. CT of the head revealed no acute intracranial pathology , no evidence of bleeding. Patient started on heparin drip. Patient was tested negative for COVI 19 at the facility ,however there were positive cases in [facility]. Patient was swabbed for COVID 19. Patient started on the IV fluids , pancultured, started on empiric antibiotics and admitted for further management to telemetry floor. CONSULTANTS: stabber Dr. Rosen ID specialist Dr. Howell GI specialist Dr. Villalta towel sorter Dr. Foreman [facility] Dr. Valera [facility]RSE: Patient initially admitted to telemetry floor to isolation room. Patient hydrated with IV fluids with close monitoring of renal parameters and electrolytes. Patient started on heparin drip. Serial troponin were closely monitored. Echocardiogram revealed preserved ejection fraction of 65% and moderate left ventricular hypertrophy. No evidence of vegetation.- Patient was on antiplatelet therapy with aspirin and statin. Sarbjit inhibitor was added for afterload reduction. Per stabber NSTEMI was most likely related to demand or from COVID induced myonecrosis. Barrel Reamer doubted plaque rupture or cytokine storm. Supplemental oxygen provided and titrated to keep pulse oximetry above 90%. Pulmonary toilet provided. Prior to discharge pulse oximetry was stable on room air. SARS-CoV-2 by PCR was confirmed on 12/14. Patient received Plaquenil x 5 days. Repeated SARS-CoV-2 by PCR on 12/21 and 12/24 were negative. Isolation was discontinued. Blood culture intially revealed staph epidermidis. Repeated blood cultures still show 1 out of 2 staph epidermidis. Blood culture on 01/01 and 01/08 were negative. Urine culture revealed Proteus. Stool for C. difficile was checked due to diarrhea , and was negative. Patient completed antibiotic for Staph epidermidis bacteremia and UTI. Renal parameters and electrolytes were closely monitored. Acute renal failure resolved. Electrolytes stable prior to discharge Patient was kept n.p.o. with NG tube feeding. Speech therapist recommended nonoral feeding. Further goals of care were discussed with patient's daughter , who desired to proceed with PEG placement. Patient subsequently undergone EGD and PEG placement on 01/04. Tube feeding started and slowly increased as tolerated to goal rate. G-tube site care provided. Strict aspiration precaution maintained. Venous duplex bilateral upper extremity revealed bilateral upper extremity cephalic vein thrombus . Given a positive COVID 19 status and hypercoagulability state, patient started on Lovenox with plan to keep anticoagulation for total of 3 months. Patient was transitioned to Eliquis upon discharge to complete the course of 3 months treatment. Patient continued to have persistent leukocytosis and intermittent fevers. SARS-CoV-2 by PCR repeated on 01/09 and 01/10 was negative. Patient subsequently undergone CT of the chest, abdomen and pelvis, which revealed no findings to account for persistent leukocytosis and intermittent fevers. Noted skin thickening and infiltration of the subcutaneous fat in the right groin/upper thigh region, but no clinical evidence of cellulitis or abscess abscess. Patient undergone WBC scan, which only showed a small faint area of abnormal uptake in the anterior abdominal wall just , left of the midline , likely corresponding to mild soft tissue induration at the entry site of the PEG tube. No evidence of G-tube site infection or cellulitis. Patient completed anabiotic course a [facility] specialsit. Leukocytosis and intermittent fevers resolved. Initially bone marrow biopsy was planned due to persistent leukocytosis and fevers as per ID recommendations, to rule out hematological disease. However it was canceled given eventually resolved leukocytosis and fever.s Chest x-ray was done prior to discharge and revealed no acute cardiopulmonary pathology. Laboratory work-up revealed no leukocytosis. Patient clinically stabilized and was ready for [facility] to [facility] for [facility] of care. 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 DISCHARGE INSTRUCTIONS: [facility] to [facility] facility. Follow up with medical doctor at the facility. Marge Gutierrez NP January 20, 2020 12:44
== END 2020-01-18 16:55 | DRG 871 ==
LOC: EDBD 09:28 → EMR 09:57 → ICU 11:30 → EDBEDREQ 18:02 → 2W 12-18 18:20 → 2E 12-26 19:44 → 4E 01-05 12:09
PROC: 0DH63UZ Insertion of Feeding Device into Stomach, Percutaneous Approach (ICD-10-PCS; principal; 2020-01-05 09:46)
DX: A41.9 Sepsis, unspecified organism (principal); U07.1 COVID-19; T83.518A Infection and inflammatory reaction due to other urinary catheter, initial encounter; N39.0 Urinary tract infection, site not specified; I21.A1 Myocardial infarction type 2; J12.89 Other viral pneumonia; J96.01 Acute respiratory failure with hypoxia; N17.9 Acute kidney failure, unspecified; F03.91 Unspecified dementia, unspecified severity, with behavioral disturbance; E87.0 Hyperosmolality and hypernatremia; E87.2 Acidosis; G93.40 Encephalopathy, unspecified; I82.623 Acute embolism and thrombosis of deep veins of upper extremity, bilateral; I10 Essential (primary) hypertension; F41.9 Anxiety disorder, unspecified; E86.0 Dehydration; D75.1 Secondary polycythemia; E83.52 Hypercalcemia; R62.7 Adult failure to thrive; Z68.30 Body mass index [BMI] 30.0-30.9, adult; R13.10 Dysphagia, unspecified; E11.9 Type 2 diabetes mellitus without complications; E53.8 Deficiency of other specified B group vitamins; B96.4 Proteus (mirabilis) (morganii) as the cause of diseases classified elsewhere; E87.6 Hypokalemia; F41.8 Other specified anxiety disorders
CPT/HCPCS: 36415; 70450; 71045; 71260; 74018; 74177; 80048; 80053; 80061; 80076; 80164; 80202; 81001; 81003; 82270; 82550; 82553; 82607; 82728; 82746; 82962; 82977; 83010; 83540; 83550; 83605; 83615; 83735; 83880; 84100; 84165; 84443; 84484; 84550; 85007; 85025; 85044; 85379; 85610; 85730; 86140; 87040; 87081; 87086; 87181; 87324; 87635; 93005; 93306; 93970; 94003; 94150; 96361; 96374; 96375; 99291; A9570; J7030; J8499